=== PATIENT | female | born 1990 | race Caucasian/White ===

== ENCOUNTER 2018-06-19 22:23 | Emergency (ER) | payer MEDICAID, SELFPAY ==
[2018-06-19 22:25] VITALS: BP 153/90; PULSE 85; RESP 20; TEMP 36.6; O2SAT 99; BMI 27.4
[2018-06-19 22:36] VITALS: BP 137/100; PULSE 83; RESP 14; O2SAT 98
--- NOTE | 2018-06-19 22:49 | ED.VISSUMM ---
- ER Visit Summary Date of Service: 06/19/18 Chief Complaint: Vaginal bleeding History of Present Illness: The patient is a 28 F with vaginal bleeding that started today. She passed a large clot. This was painful. She was concerned it might be tissue. She was not positive that she was , but she has never passed tissue like this before. She does have a history of a tubal ligation. Patient denies fevers or any other symptoms. Physical Examination: Afebrile vital signs unremarkable. Heart regular. Lungs clear. Abdomen soft and nontender. Skin appears normal. Test Results: Urinalysis and test are pending. Emergency Department Course and Treatment: test was negative. Urinalysis is unremarkable. I suspect this is an abnormal clots or possibly a decidual cast. Patient is stable and will follow up with her OB as an outpatient. Treatment Plan: As above Disposition: Discharge Impression: 1. Vaginal bleeding This note was generated with [employer] dictation software. It may contain incorrect words, spelling, and punctuation that were not noted in review of the chart prior to signing ED Disposition - Plan for ED Patient: Chief Complaint: Vag Bld, Preg Referrals: Rober Saba DO [Primary Care Provider] -
[2018-06-19 23:24] LABS: Internal QC Validated? YES +Cl - CLEAR BKGD
[2018-06-19 23:25] LABS: Pregnancy, Urine Negative Negative
[2018-06-20 00:14] LABS: Bacteria 0 SEEN /hpf (None Seen); Mucous, Urine 0 SEEN /hpf (<or=2+); Red Blood Cells-Urine 0 SEEN /hpf (0-5); White Blood Cells 0 SEEN /hpf (0-5)
[2018-06-20 00:15] LABS: Color, Urine Yellow (Yellow); Glucose, Dipstick Normal (Normal); Ketone-Dipstick Negative (Negative); Leukocyte Esterase-Dipstick 25 /ul (Negative); Nitrite-Dipstick Negative (Negative); Occult Blood-Urine 250 /ul (Negative); Protein-Dipstick Negative (Negative); Urine Bilirubin Dipstick Negative (Negative); Urine Clarity Clear (Clear); Urine Urobilinogen Normal (Normal)
[2018-06-20 00:23] LABS: Squamous Epithelial Cells - UA 5-10 SEEN /hpf (5-10)
--- NOTE | 2018-06-20 00:30 | ED.DEP ---
ED Disposition - Plan for ED Patient: Chief Complaint: Vag Bld, Preg Instructions: ED Bleed Irregular Vaginal Referrals: Rober Saba DO [Primary Care Provider] -
[2018-06-20 00:48] VITALS: BP 127/88; PULSE 72; RESP 17; O2SAT 100
== END 2018-06-20 00:48 | disposition home or self-care (01) ==
LOC: ED 22:59
PROVIDERS: Emergency Provider Emergency Medicine; Family Provider Student in an Organized Health Care Education/Training Program; PCP Student in an Organized Health Care Education/Training Program
DX: N93.9 Abnormal uterine and vaginal bleeding, unspecified (principal); Z87.440 Personal history of urinary (tract) infections; Z72.0 Tobacco use
CPT/HCPCS: 81001; 81025; 99282

== ENCOUNTER 2019-02-10 14:05 | Emergency (ER) | payer MEDICAID, SELFPAY ==
[2019-02-10 14:06] VITALS: BP 118/73; PULSE 86; RESP 16; TEMP 40.1; O2SAT 98; BMI 28.0
--- NOTE | 2019-02-10 15:10 | ED.RN ---
POS FLU A CALLED FROM THE LAB. DR ELIVA AWARE
[2019-02-10 15:31] VITALS: PULSE 115; RESP 24; O2SAT 95
--- NOTE | 2019-02-10 15:45 | ED.VIS.GEN ---
History of Present Illness Chief Complaint: Fever Informant: Patient Onset: Yesterday Context: Gradual Onset Timing: Continuous Current Severity: Moderate Maximum Severity: Moderate Worsened by: coughing, vomiting Relieved by: n/a Associated Symptoms: myalgias, headache. Narrative: Patient states she has been coughing for about 3 weeks, but yesterday she started feeling awful, the cough became worse. No shortness of breath. Subjective fevers, chills, myalgias, malaise. No flu vaccine this year. Healthy otherwise, no asthma. No rash, no leg swelling. Past Medical History - Allergies and Home Meds Allergies/Adverse Reactions: Allergies azithromycin [From Zithromax] Allergy (Verified 06/19/18 22:28) Rash red dye Adverse Reaction (Verified 06/19/18 22:28) Vomiting Primary Care Physician: Rober Saba DO [Primary Care Provider] - Past Medical History: None Smoking Status: Current every day smoker Review of Systems General: Reports: Chills, Fever, Malaise Eyes: Reports: - - Eyes burning. Denies: Visual changes - bilaterally, Diplopia ENT: Denies: Rhinorrhea, Sore throat Cardiovascular: Denies: Chest pain, Palpitations Respiratory: Reports: Cough. Denies: Dyspnea, Sputum, Dyspnea on exertion Gastrointestinal: Reports: Nausea, Vomiting. Denies: Abdominal pain, Diarrhea, Melena, Hematochezia Genitourinary: Denies: Dysuria, Hematuria, Frequency Musculoskeletal: Reports: Myalgias. Denies: Back pain, Extremity Pain Skin: Denies: Rash, Wounds Neurological: Reports: Headache. Denies: Weakness, Numbness Physical Exam Vital Signs/Narrative: Vital Signs Temp Pulse Resp BP Pulse Ox 02/10/19 15:31 115 H 24 H 95 02/10/19 14:06 104.1 F H 86 16 118/73 98 Inital Vital Signs reviewed: Yes General: Well nourished, Well developed, No Acute Distress - Ill/malaised Head: Normocephalic, Atraumatic Eyes: Perrl, EOMI ENT: Moist mucous membranes, No rhinorrhea, Nasal congestion, - - Posterior oropharynx clear.. Negative for: Sinus tenderness Neck: Supple, Nontender, No lymphadenopathy Cardiovascular: Regular rate, Regular rhythm, No murmurs, Tachycardia Respiratory: No distress, CTA bilaterally, Chest nontender Abdomen: Soft, Nontender, Nondistended, Normal bowel sounds Extremities: Nontender, No edema Skin: Normal color, No rash, No Trauma Neurological: Alert, Oriented x3, Cranial nerves II-XII grossly intact, Normal Strength, Normal Sensation, Normal Gait Psychological: Normal affect, Normal Mood Diagnostic/Tx/Re-eval - Medical Decision Making Influenza swab is positive for flu A. She is reassured, she does not have any complications of the flu at this time, her lungs are clear. Her pulse ox is normal. She was given Motrin, Zofran, Tamiflu as well as prescriptions for the latter 2. Advised to stay at home and rest. ED Disposition - Plan for ED Patient: Disposition: Home or Assisted Living Diagnosis: Influenza A Instructions: ED Flu Prescriptions: Ondansetron [Zofran] 8 mg PO Q8H PRN PRN #12 tab PRN Reason: Vomiting Oseltamivir Phosphate [Tamiflu] 75 mg PO BID #10 cap Referrals: Rober Saba DO [Primary Care Provider] - As Needed
[2019-02-10] MEDS: Ondansetron ODT 4 MG Tablet 8 MG PO (15:51)
[2019-02-10] MEDS: Oseltamivir Phosphate 75 MG Capsule PO (15:51)
[2019-02-10] MEDS: Ibuprofen 600 MG Tablet PO (15:51)
[2019-02-10 15:56] VITALS: RESP 24
== END 2019-02-10 16:00 | disposition home or self-care (01) ==
LOC: ED 15:59
PROVIDERS: Emergency Provider Emergency Medicine; Family Provider Student in an Organized Health Care Education/Training Program; PCP Student in an Organized Health Care Education/Training Program
DX: J11.1 Influenza due to unidentified influenza virus with other respiratory manifestations (principal); F17.210 Nicotine dependence, cigarettes, uncomplicated
CPT/HCPCS: 87804; 87880; 99283

== ENCOUNTER 2020-02-10 18:27 | Emergency (ER) | payer MEDICAID, SELFPAY ==
[2020-02-10 18:28] VITALS: BP 142/73; PULSE 78; RESP 16; TEMP 36.7; O2SAT 98; BMI 28.5
[2020-02-10 18:50] VITALS: O2SAT 100
--- NOTE | 2020-02-10 19:10 | RAD_ITS ---
STUDY: X-RAY CHEST REASON FOR EXAM: Female, 29 years old. Sore throat TECHNIQUE: PA and lateral views of the chest COMPARISON: X-ray chest July 23, 2012 FINDINGS: There is very mild interstitial prominence in the right lower lung zone. There is no consolidation. There are no pleural effusions. There is no pneumothorax. The heart is normal in size. The visualized osseous structures are within normal limits. RAD/Chest PA and Lateral IMPRESSION: Very mild interstitial prominence in the right lower lung zone, possibly early interstitial infiltrate. No consolidation. Electronically Signed: Alvin Suero, at 19:26 EDT Tel , Service support ,
--- NOTE | 2020-02-10 19:15 | ED.VISSUMM ---
- ER Visit Summary Date of Service: 02/10/20 Chief Complaint: [Sinus pressure/cough/sore throat] History of Present Illness: The patient is a 29 F [presents the emergency department with symptoms that started 5 or 6 days ago. Patient was seen in urgent care and had no testing and was told to return if she worsened. Patient denies any fever. She denies any exposures to patients with no novel coronavirus infection. Patient denies recent travel. Patient works in a long-term. She denies any chest pain. Patient does state that her cough is productive with some green phlegm. Patient's had green phlegm from her nose.] Physical Examination: [HEENT-PERRLA, EOMI. Cranial nerves II through XII grossly intact. TMs clear. Mucous membranes moist. No adenopathy. Cardiovascular-regular rate and rhythm without murmur or ectopy Lungs-clear to auscultation, chest wall stable without crepitus or subcu emphysema Abdomen-normoactive bowel sounds, soft, nontender, no rebound or rigidity, no peritoneal signs. Extremities-intact ?4, normal range of motion, normal pulses, atraumatic] Test Results: [Chest x-ray obtained showed increased markings in the right lower lobe and could not rule out an early infiltrate. CT of the chest was obtained given concern for novel coronavirus which essentially did not show any lung abnormality other than she had multiple granulomas throughout both lungs the largest of which was 6 mm. Patient also had some calcified lymph nodes.] Emergency Department Course and Treatment: [Patient was started on doxycycline to cover for possible bacterial infection of her lungs and sinuses.] Treatment Plan: [Patient advised to self quarantine for 2 weeks. She will be treated with doxycycline. She understands I cannot rule out novel coronavirus. Patient advised to return if increasing shortness of breath or condition should worsen anyway.] Disposition: [Discharged home in stable condition] Impression: [Upper respiratory infection] This note was generated with [employer] dictation software. It may contain incorrect words, spelling, and punctuation that were not noted in review of the chart prior to signing ED Disposition - Plan for ED Patient: Referrals: Rober Saba DO [Primary Care Provider] -
--- NOTE | 2020-02-10 19:33 | CT_ITS ---
STUDY: CT CHEST WITHOUT CONTRAST REASON FOR EXAM: Female, 29 years old. COUGH AND SORE THROAT,ABN CXR RADIATION DOSAGE (If Supplied By Facility): CTDIvol = ( 12.13 ) mGy, DLP = ( 442.52 ) mGycm TECHNIQUE: Transaxial imaging was performed without the administration of intravenous contrast material. Individualized dose optimization techniques were used for this CT. COMPARISON: None. FINDINGS: There is a 3 mm nodule of the posterior left lower lobe, image 91 series 4. There is an additional 3 mm nodule of the left lower lobe image 78 series 4. There is a 6 mm nodule of the right lower lobe, image 67 series 4. There is a 4 mm right upper lobe nodule, image 48 series 4. There is a 2 mm right upper lobe nodule image 64 series 4. There is a 4 mm right upper lobe nodule image 48 series 4. There are calcified right lower lobe granulomas. Tthere is no demonstrated pleural abnormality. Normal heart and pericardium. There is a calcified mediastinal node. There are calcified right hilar nodes. Normal unenhanced pulmonary arteries. Normal aorta arch and descending thoracic aorta. There are mild degenerative changes of the visualized thoracolumbar spine. There is no demonstrated abnormality of the visualized upper abdomen. CT/Chest without Contrast IMPRESSION: Bilateral pulmonary nodules as detailed above. Calcified right lower lobe granulomas. Calcified mediastinal and right hilar nodes. Mild degenerative changes of the visualized thoracolumbar spine. Electronically Signed: Grabiel Chadwick MD at 20:13 EDT , Service support ,
[2020-02-10] MEDS: levoFLOXacin 750 MG Tablet PO (19:40)
--- NOTE | 2020-02-10 20:22 | ED.DEP ---
ED Disposition - Plan for ED Patient: Instructions: BRONCHITIS, Antiobiotic Treatment (Adult) Prescriptions: Doxycycline 100 mg PO BID #20 cap Prescription Printed Referrals: Rober Saba DO [Primary Care Provider] - 10-14 Days if not better
[2020-02-10 20:34] VITALS: BP 127/68; PULSE 86; RESP 17; O2SAT 96
== END 2020-02-10 20:34 | disposition home or self-care (01) ==
PROVIDERS: Emergency Provider Emergency Medicine; PCP Student in an Organized Health Care Education/Training Program
DX: J06.9 Acute upper respiratory infection, unspecified (principal); F17.220 Nicotine dependence, chewing tobacco, uncomplicated
CPT/HCPCS: 71046; 71250; 99283

== ENCOUNTER 2020-04-27 17:50 | Emergency (ER) | payer MEDICAID, SELFPAY ==
[2020-04-27 17:55] VITALS: BP 145/84; PULSE 89; RESP 17; TEMP 36.8; O2SAT 99; BMI 26.7
--- NOTE | 2020-04-27 17:58 | EKG12_ITS ---
Test Reason : PALPS Blood Pressure : / mmHG Vent. Rate : 070 BPM Atrial Rate : 070 BPM P-R Int : 134 ms QRS Dur : 092 ms QT Int : 408 ms P-R-T Axes : 049 052 023 degrees QTc Int : 440 ms Normal sinus rhythm with sinus arrhythmia Normal ECG Confirmed by VEE TOMLIN ([id number]), photograph editor JACQUELINE CHEN ([id number]) on 04/29/2020 7:22:40 AM Referred By: YUKI Confirmed By:VEE TOMLIN
--- NOTE | 2020-04-27 18:09 | RAD_ITS ---
STUDY: X-RAY CHEST REASON FOR EXAM: Female, 30 years old. Palpitations, irregular heart beat -- Normal HR, normal lung sounds TECHNIQUE: Single frontal view of the chest. COMPARISON: 02/10/2020 FINDINGS: The lungs are clear and expanded. There is no demonstrated pleural abnormality. Normal size heart. Normal mediastinum and kiki. Normal visualized pulmonary arteries. Normal visualized aortic arch and descending thoracic aorta. Normal visualized thoracic spine. Normal visualized ribs, clavicles, and shoulders. There is no demonstrated abnormality of the visualized soft tissue structures of the upper abdomen. RAD/Chest 1 View (Portable) IMPRESSION: Normal x-ray examination of the chest. Electronically Signed: Celio Alan MD at 18:40 EDT Tel , Service support ,
--- NOTE | 2020-04-27 18:20 | ED.DCSUM_ITS ---
- ER Visit Summary Date of Service: 04/27/20 Chief Complaint: Irregular heart rate History of Present Illness: The patient is a 30 F with an irregular rapid heart rate that started while she was at rest. She tried to drive to the ER after she called her PCP, but had to call EMS because she felt dizzy. She had a tingling in her left shoulder. She never had this before. Denies any history of heart disease or blood clots. She does believe her heart rate is dropping down into the 40s at night. No history of dysrhythmia, valvular disease, or any other complaints. Physical Examination: Afebrile and vital signs unremarkable. Patient in no acute distress. Alert and oriented. Heart regular. Lungs clear. Abdomen soft. Skin normal. Test Results: EKG showed sinus arrhythmia at a rate of 70. No sign of ischemia or infarction pattern. No red flag features. Laboratory studies and chest x- ray are pending. Emergency Department Course and Treatment: Patient was placed on a monitor. Work-up as above. Will reassess. Chest x-ray was normal. CBC, BMP, troponin, magnesium, thyroid normal. On reevaluation, the patient is doing well. No further symptoms. She was discussed with Dr. Nazario. Will arrange 24-hour Holter monitor and she will follow-up. Return for any problems. Treatment Plan: As above Disposition: Discharge Impression: Heart palpitations This note was generated with [employer] dictation software. It may contain incorrect words, spelling, and punctuation that were not noted in review of the chart prior to signing ED Disposition - Plan for ED Patient: Referrals: Rober Saba DO [Primary Care Provider] -
[2020-04-27 18:37] LABS: Absolute Neutrophil Count 5.6 X10^3/uL (2.0-7.7); Basophil# 0.09 X10^3/uL; Basophil% 0.9 % (0-1); Eosinophils% 3.2 % (0-5); Hematocrit 39.6 % (37-47); Hemoglobin 13.3 g/dL (12.0-15.0); Lymphocyte % 29.4 % (19-41); Mean Corp Hgb Conc 33.6 g/dL (32-36); Mean Corpuscular Volume 86.3 fL (81-99); Mean Platelet Vol. 10.3 fl (6.2-12.0); Monocyte# 0.68 X10^3/uL; Monocyte% 7.2 % (0-10); NRBC Flagged by Analyzer 0 % (0-5); Neutrophil # 5.61 X10^3/uL (2.7-7.7); Platelet Count 256 K/mm3 (150-450); RBC Distribution Width CV 13.8 % (11.6-14.6); RBC Distribution Width SD 42.8 fl (35.1-43.9); Red Blood Count 4.59 M/mm3 (4.2-5.4); White Blood Count 9.5 K/mm3 (4.4-11.0)
[2020-04-27 18:44] LABS: Anion Gap 7 (5-15); BUN 7 mg/dL (7-18); Calcium,Total 8.4 mg/dL (8.5-10.1); Chloride 111 mmol/L (98-107); Creatinine, Serum 0.78 mg/dL (0.55-1.02); EST Glomerular Filtration Rate 93 mL/min (>60); Est Glom Filt Rate - Afr Amer 112 mL/min (>60); Estimated Creatinine Clearance 111.22 ml/min; Glucose 88 mg/dL (74-106); Magnesium 2.2 mg/dL (1.6-2.6); Potassium 3.7 mmol/L (3.5-5.1); Sodium Level 142 mmol/L (136-145); Thyroid Stim Hormone (TSH) 1.01 uIU/mL (0.358-3.74)
--- NOTE | 2020-04-27 18:58 | ED.DEP ---
ED Disposition - Plan for ED Patient: Instructions: ED Palpitations Referrals: Brianna Nazario MD [STAFF PHYSICIAN] -
[2020-04-27 19:17] VITALS: BP 103/45; PULSE 73; RESP 17; O2SAT 98
== END 2020-04-27 19:32 | disposition home or self-care (01) ==
PROVIDERS: Emergency Provider Emergency Medicine; PCP Student in an Organized Health Care Education/Training Program
DX: R00.2 Palpitations (principal); F17.200 Nicotine dependence, unspecified, uncomplicated
CPT/HCPCS: 71045; 80048; 83735; 84443; 84484; 85025; 93005; 93225; 99285; J7030; A4216

== ENCOUNTER → 2020-04-27 18:58 | Outpatient (CLI) | payer MEDICAID, SELFPAY ==
[2020-04-27 17:55] VITALS: BMI 26.7
== END ==
PROVIDERS: PCP Student in an Organized Health Care Education/Training Program; Visit Provider Specialist
DX: I49.9 Cardiac arrhythmia, unspecified (principal); R00.2 Palpitations; F17.200 Nicotine dependence, unspecified, uncomplicated
CPT/HCPCS: 71045; 80048; 83735; 84443; 84484; 85025; 93005; 93225; 93226; J7030; A4216

== ENCOUNTER 2020-06-03 10:23 | Emergency (ER) | payer MEDICAID, SELFPAY ==
[2020-06-03 10:24] VITALS: BP 107/95; PULSE 76; RESP 18; TEMP 36.6; O2SAT 98; BMI 25.4
--- NOTE | 2020-06-03 10:38 | ED.DCSUM_ITS ---
History of Present Illness Chief Complaint: Allergic Reaction Narrative: Patient presenting for evaluation secondary to a allergic reaction to a tattoo. Patient reports that she got a tattoo on her right forearm back in December. She states that since then she has been dealing with basically continuous allergic response to the dye. Patient states that she has been doing steroid creams that have not really helped, she was on a course of prednisone which gave her minimal to no relief. Patient reports that she heard that potentially an injection of steroids give some people some relief, she was at urgent care recently they placed her on another course of steroid cream and that did not give her any relief. She denies any history of allergies. She denies any history of immunosuppression. She reports that the tattoo is itchy and not painful. Review of systems otherwise negative. Past Medical History - Allergies and Home Meds Allergies/Adverse Reactions: Allergies azithromycin [From Zithromax] Allergy (Verified 06/03/20 10:27) Rash red dye Adverse Reaction (Verified 06/03/20 10:27) Vomiting Primary Care Physician: Rober Saba DO [Primary Care Provider] - Prior records reviewed: Yes Past Medical History: None Smoking Status: Current every day smoker Alcohol: None Drugs: None Review of Systems General: Denies: Fever Respiratory: Denies: Dyspnea, Cough Gastrointestinal: Denies: Nausea Musculoskeletal: Denies: Myalgias Skin: Reports: Rash Hematologic: Denies: Easy bruising, Easy bleeding Allergy: Denies: Uticaria Physical Exam Vital Signs/Narrative: Vital Signs Temp Pulse Resp BP Pulse Ox 06/03/20 10:24 97.9 F 76 18 107/95 H 98 Inital Vital Signs reviewed: Yes General: Well nourished, Well developed Head: Normocephalic, Atraumatic Eyes: EOMI Cardiovascular: Regular rate, Regular rhythm, - - 2+ radial pulses Extremities: - - Right forearm exam shows the patient's tattoo to have raised areas wherever she has red dye that are palpable, no evidence of cellulitis, no lymphangitic streaking, no induration or fluctuance. Skin: Rash Neurological: Alert, Oriented x3 Diagnostic/Tx/Re-eval - Medical Decision Making Patient presented secondary to an allergic reaction due to a tattoo. Patient does not have any evidence of infection at this point. Patient stated that she had heard that injection steroids sometimes do give people relief for this, noble dirk will be given a Kenalog injection. She was instructed to continue doing steroid creams. She will be given a referral to dermatology. ED Disposition - Plan for ED Patient: Disposition: Home or Assisted Living Diagnosis: Allergic reaction Instructions: ED General Allergic Reactions Referrals: Angeli Carlisle MD [NON-STAFF] -
[2020-06-03] MEDS: Triamcinolone Acetonide 40 MG/ML Vial 80 MG IM (11:01)
[2020-06-03 11:02] VITALS: BP 122/68; PULSE 83; RESP 18; TEMP 36.8; O2SAT 98
[2020-06-03 11:03] VITALS: BP 132/78; PULSE 79; RESP 18; O2SAT 97
== END 2020-06-03 11:08 | disposition home or self-care (01) ==
PROVIDERS: Emergency Provider Emergency Medicine; PCP Student in an Organized Health Care Education/Training Program
DX: T78.40XA Allergy, unspecified, initial encounter (principal); F17.200 Nicotine dependence, unspecified, uncomplicated
CPT/HCPCS: 96372; 99282

== ENCOUNTER 2020-08-11 20:29 | Emergency (ER) | payer MEDICAID, SELFPAY ==
[2020-07-21 13:38] VITALS: BMI 24.9
[2020-08-11 20:30] VITALS: BP 132/88; PULSE 95; RESP 18; TEMP 36.8; O2SAT 98; BMI 24.3
--- NOTE | 2020-08-11 20:53 | EKG12_ITS ---
Test Reason : MHC Blood Pressure : / mmHG Vent. Rate : 062 BPM Atrial Rate : 062 BPM P-R Int : 138 ms QRS Dur : 094 ms QT Int : 432 ms P-R-T Axes : 051 048 026 degrees QTc Int : 438 ms Sinus rhythm with marked sinus arrhythmia Incomplete right bundle branch block Borderline ECG Confirmed by MARIXA TAVAREZ, JESUS ([id number]), offline editor JACQUELINE CHEN ([id number]) on 08/19/2020 12:48:01 P M Referred By: ANTIONE Confirmed By:MIAN CALVIN MD
--- NOTE | 2020-08-11 21:06 | ED.DCSUM_ITS ---
History of Present Illness Chief Complaint: Suicidal Narrative: This patient is a 30-year-old female who presents after an intentional acetaminophen overdose. She has a history of depression and anxiety. She is not on any medications currently. She states that she is under multiple stressors. She is working 2 jobs. Her son has been having some health issues. She reports that her is very controlling. She states that she just did not want to do this anymore. She took 8 g of Tylenol at about 3 or 3:30 PM today. She states that in the back of my mind I knew it wouldn't do anything. She woke up and got ready for work she was feeling okay. After getting to work she vomited and then developed sharp right upper quadrant pain. Past Medical History - Allergies and Home Meds Allergies/Adverse Reactions: Allergies azithromycin [From Zithromax] Allergy (Verified 08/11/20 20:41) Rash red dye Adverse Reaction (Verified 08/11/20 20:41) Vomiting Primary Care Physician: Rober Saba DO [Primary Care Provider] - Past Medical History: - - Depression anxiety Smoking Status: Current every day smoker Review of Systems All systems negative except as indicated General: Denies: Fever Eyes: Denies: Visual changes - bilaterally ENT: Denies: Bilateral ear pain Cardiovascular: Denies: Chest pain Respiratory: Denies: Dyspnea Gastrointestinal: Reports: Abdominal pain, Nausea, Vomiting. Denies: Diarrhea Musculoskeletal: Denies: Myalgias, Arthralgias Skin: Denies: Rash Neurological: Denies: Headache Psych: Reports: Depression, Anxiety, Suicidal thoughts Hematologic: Denies: Easy bruising Allergy: Denies: Uticaria Physical Exam Vital Signs/Narrative: Vital Signs Temp Pulse Resp BP Pulse Ox 08/11/20 20:30 98.2 F 95 18 132/88 H 98 Inital Vital Signs reviewed: Yes General: Well nourished Head: Normocephalic Eyes: EOMI ENT: Moist mucous membranes Neck: Supple Cardiovascular: Regular rate, Regular rhythm Respiratory: No distress, CTA bilaterally Abdomen: Soft, Nontender, Nondistended Extremities: Nontender Skin: Normal color Neurological: Alert Psychological: Tearful Diagnostic/Tx/Re-eval Laboratory Results 08/11/20 08/11/20 08/11/20 20:42 20:42 20:42 WBC 12.2 H RBC 4.86 Hgb 14.1 Hct 42.3 MCV 87.0 MCH 29.0 MCHC 33.3 RDW Std Deviation 41.8 RDW Coeff of Ludwin 13.3 Plt Count 286 MPV 10.1 Immature Gran % (Auto) 0.200 Neut % (Auto) 74.7 H Lymph % (Auto) 17.1 L Wilson % (Auto) 5.7 Eos % (Auto) 1.6 Baso % (Auto) 0.7 Absolute Neuts (auto) 9.1 H Absolute Lymphs (auto) 2.08 Nucleated RBC % 0 PT INR Sodium 141 Potassium 3.4 L Chloride 112 H Carbon Dioxide 23.0 Anion Gap 6 BUN 7 Creatinine 0.83 Estim Creat Clear Calc 104.52 Est GFR (MDRD) Af Amer 105 Est GFR (MDRD) Non-Af 87 BUN/Creatinine Ratio 8.5 L Glucose 113 H Calcium 9.0 Total Bilirubin 0.40 AST 16 ALT 21 Alkaline Phosphatase 52 Total Protein 7.7 Albumin 4.0 Globulin 3.7 Albumin/Globulin Ratio 1.1 Salicylates 2.6 L Acetaminophen 28.0 Ethyl Alcohol < 3.0 08/11/20 21:20 WBC RBC Hgb Hct MCV MCH MCHC RDW Std Deviation RDW Coeff of Ludwin Plt Count MPV Immature Gran % (Auto) Neut % (Auto) Lymph % (Auto) Wilson % (Auto) Eos % (Auto) Baso % (Auto) Absolute Neuts (auto) Absolute Lymphs (auto) Nucleated RBC % PT 13.1 INR 1.0 Sodium Potassium Chloride Carbon Dioxide Anion Gap BUN Creatinine Estim Creat Clear Calc Est GFR (MDRD) Af Amer Est GFR (MDRD) Non-Af BUN/Creatinine Ratio Glucose Calcium Total Bilirubin AST ALT Alkaline Phosphatase Total Protein Albumin Globulin Albumin/Globulin Ratio Salicylates Acetaminophen Ethyl Alcohol - Medical Decision Making Patient underwent medical clearance with the above laboratory studies. Acetaminophen level is 28. This is below the treatment line on the [facility] nomogram. At the time of this dictation her urine studies are still pending including urine drug screen and . If the studies are normal patient will be medically cleared. Patient will be evaluated crisis. Given intentional drug overdose with attempt at self-harm I do feel she would benefit from hospitalization for further management and treatment. Patient will be signed out to the oncoming physician to follow-up on urine studies and crisis evaluation. ED Disposition - Plan for ED Patient: Diagnosis: Suicidal ideation, Intentional drug overdose Referrals: Rober Saba DO [Primary Care Provider] -
[2020-08-11 21:09] LABS: Absolute Lymphocyte Count 2.08 X10^3/uL (0.83-4.51); Absolute Neutrophil Count 9.1 X10^3/uL (2.0-7.7); Basophil# 0.09 X10^3/uL; Basophil% 0.7 % (0-1); Eosinophil# 0.19 X10^3/uL; Eosinophils% 1.6 % (0-5); Hematocrit 42.3 % (37-47); Hemoglobin 14.1 g/dL (12.0-15.0); Lymphocyte # 2.08 X10^3/ul (4.0); Lymphocyte % 17.1 % (19-41); Mean Corp Hgb Conc 33.3 g/dL (32-36); Mean Platelet Vol. 10.1 fl (6.2-12.0); Monocyte# 0.69 X10^3/uL; Monocyte% 5.7 % (0-10); NRBC Flagged by Analyzer 0 % (0-5); Neutrophil # 9.08 X10^3/uL (2.7-7.7); Neutrophil % 74.7 % (47-70); Platelet Count 286 K/mm3 (150-450); RBC Distribution Width CV 13.3 % (11.6-14.6); RBC Distribution Width SD 41.8 fl (35.1-43.9); Red Blood Count 4.86 M/mm3 (4.2-5.4); White Blood Count 12.2 K/mm3 (4.4-11.0)
[2020-08-11 21:21] LABS: ALB/GLOB Ratio 1.1 RATIO (0.9-2.4); AST(SGOT) 16 U/L (15-37); Alanine Aminotransfer ALT/SGPT 21 U/L (13-56); Alkaline Phosphatase 52 U/L (45-117); Anion Gap 6 (5-15); BUN 7 mg/dL (7-18); BUN/Creat Ratio 8.5 RATIO (10-20); Chloride 112 mmol/L (98-107); Creatinine, Serum 0.83 mg/dL (0.55-1.02); EST Glomerular Filtration Rate 87 mL/min (>60); Est Glom Filt Rate - Afr Amer 105 mL/min (>60); Estimated Creatinine Clearance 104.52 ml/min; Globulin 3.7 g/dL (2.2-4.2); Glucose 113 mg/dL (74-106); Potassium 3.4 mmol/L (3.5-5.1); Protein, Total 7.7 g/dL (6.4-8.2); Sodium Level 141 mmol/L (136-145)
[2020-08-11 21:29] VITALS: BP 127/94; PULSE 60; RESP 18; O2SAT 98
[2020-08-11 21:41] LABS: Prothrombin Time (Protime)PT. 13.1 SECONDS (11.7-14.9)
--- NOTE | 2020-08-11 21:49 | ED.RN ---
aunt would like update if anything critical occurs. víctor bateman- [phone]. per pt okay to contact ONLY if need be.
[2020-08-11] MEDS: Ondansetron 4 MG/2 ML Vial IV (21:50)
[2020-08-11] MEDS: 0.9% Normal Saline 1,000 ML 999 ML IV (21:50)
[2020-08-11 21:52] LABS: Alcohol, Blood (Medical)-Serum < 3.0 mg/dL; Salicylate 2.6 mg/dL (2.8-20.0)
[2020-08-11 22:30] VITALS: BP 127/98; PULSE 90; RESP 18; O2SAT 98
[2020-08-11 22:56] LABS: Internal QC Validated? YES +Cl - CLEAR BKGD; Pregnancy, Urine Negative Negative
[2020-08-11 23:11] LABS: Amphetamine Urine VISTA NEGATIVE (<1000 ng/mL); Barbiturate Urine VISTA NEGATIVE (< 200 ng/mL); Benzodiazepine Urine VISTA NEGATIVE (< 200 ng/mL); Cocaine Urine VISTA NEGATIVE (< 300 ng/mL); Ecstacy Urine VISTA NEGATIVE (< 500 ng/mL); Methadone Urine VISTA NEGATIVE (< 300 ng/mL); PCP Urine VISTA NEGATIVE (< 25 ng/mL); THC Urine VISTA POSITIVE (< 50 ng/mL); Vista UDS pH Range 6
[2020-08-12] VITALS (10 sets, daily range): BP systolic 99–131; BP diastolic 56–87; PULSE 42–64; RESP 14–18; TEMP 36.6–36.7; O2SAT 96–99
--- NOTE | 2020-08-12 06:22 | ED.RN ---
[facility] PAGED FOR PT CARE UPDATE
[2020-08-12] MEDS: Ondansetron 4 MG/2 ML Vial IV (09:10)
[2020-08-12 09:57] LABS: Acetaminophen (Tylenol) Level < 2.0 ug/mL (10.0-30.0)
== END 2020-08-12 10:56 ==
LOC: ED 21:19
PROVIDERS: Emergency Medicine; Emergency Provider Emergency Medicine; PCP Student in an Organized Health Care Education/Training Program
DX: R45.851 Suicidal ideations (principal); T39.1X2A Poisoning by 4-Aminophenol derivatives, intentional self-harm, initial encounter; F17.200 Nicotine dependence, unspecified, uncomplicated
CPT/HCPCS: 36415; 80053; 80307; 80320; 80329; 81025; 85025; 85610; 93005; 96361; 96374; 96376; 99285; J7030; A4216; G0480; J2405

== ENCOUNTER 2020-10-19 14:30 | Outpatient (RCR) | payer MEDICAID, SELFPAY ==
[2020-09-27 14:08] VITALS: BMI 24.9
--- NOTE | 2020-09-29 11:47 | HP.PTEVAL_ITS ---
Patient's Visit Information ALPHONSO JARRETT is a 30 year old F referred to Physical Therapy by Dr. 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 Date of Evaluation: 09/29/20 Physical Therapist: LAURI Huff - Visit Plan Frequency: 2x /Week Duration: 6 Weeks Plan: 2X/ week for 5 weeks for AT for core stability, hip strength, Trunk ROM, LE stretching with HEP - Subjective Pt is having a lot of hip problems.... x-ray shows that the ball of her hip is not round anymore. The L side is worse and but the pain is worse on the R. Home is tough and work is tough... 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 The meloxicam takes the edge off. Dr said he wants to try PT... if PT makes it worse than she has to call the Dr and he will work on an MRI. Her pain is on the lateral hip and radiates into the groin on the L and on the R it is on the lateral side and radiates to her R buttocks. She has no N&T. It is more of a muscle cramp or sharp stabbing pain. She has not tried PT before for her hips. Her best time for PT is mornings. If she sits for 1/2 hour it is difficult for her to get up. She can walk for about 15-20 minutes and then it starts to bother her. She does not notice any weakness in her hips. Stairs: legs almost become fatigued. No giving out. She has always had LB issues. Most nights she tosses and turns alot. She can lay on either side of her hips but sleeps with a pillow under them... could be a mattress issue. - Pain R pain Pain Intensity (Out of 10): 7 Pain Intensity Range: 10 L hip pain Pain Intensity (Out of 10): 6 Pain Intensity Range: 10 - Objective Gait: walks with WBOS and decrease B stride length. She has slightly more petrona ght distribution on the R LE. LE MMT: B hip flex 4-/5, R hip abd 4/5 and L hip abd 4-/5, B knee flex 4-/5, B knee ext 4/5. Pt had a hard time walking on her toes as it increased her L hip pain. Trunk AROM: flexion 75%, Ext 25% with increase extension on the L, SB B 75%, Rot B 75% with increase pain with roation to the L. + SLR B for increase hip pain. Good hip flexion and HS length. Pt had increase back pain with a plank today and increase lumbar lordosis - Goals Goal 1:: I HEP Goal Time Frame: 4-6 Weeks Goal 2:: Decrease B hip pain down to 2/10 with ADL's and work Goal Time Frame: 4-6 Weeks Goal 3:: Increase trunk AROM to 75% all planes with no pain. Goal Time Frame: 4-6 Weeks Goal 4:: Increase LE MMT by 1/2 muscle grade (at the time of eval: LE MMT: B hip flex 4-/5, R hip abd 4/5 and L hip abd 4-/5, B knee flex 4-/5, B knee ext 4/5. Pt had a hard time walking on her toes as it increased her L hip pain). Goal Time Frame: 4-6 Weeks Goal 5:: Walk with more normal gait pattern with feet together and equal stance time with normal stride length Goal Time Frame: 4-6 Weeks - Rehabilitation Potential Rehabilitation Potential: Good - Anticipated Interventions Patient/Client Instruction: Educate patient on: Condition, Plan of Care For the Purpose of:: To decrease pain, To increase ROM, To improve nutrient delivery to tissue, To improve muscle performance and motor function, To improve ability to perform ADL's, To increase tolerance to activity/condition/position, To improve performance and independence with ADL's, To improve gait and locomotor functions, To improve health of tissue, To increase flexibility/ROM, To reduce risk of recurrence Therapeutic Exercise to Include: Strength training, Flexibilty training, Gait and locomotor training, Active ROM, Dynamic Lumbar Stabilization For the Purpose of:: To decrease pain, To improve nutrient delivery to tissue, To improve muscle performance and motor function, To improve ability to perform ADL's, To increase tolerance to activity/condition/position, To improve performance and independence with ADL's, To improve ability of physical actions for home/community/work/leisure, To improve gait and locomotor functions, To improve health of tissue, To increase flexibility/ROM Functional Training to Include: Gait training For the Purpose of:: To improve gait and locomotor functions, To improve safety with gait Thank you for the opportunity to evaluate your patient. For Medicare and Medicare HMO plans, please review the plan of care and approve it. It will need to be FAXED BACK to us at [phone] for Medicare purposes. For Medicare only, by signing this I certify the plan of care. Please let me know if there are questions or concerns regarding this plan of care. Physician Signature: Date:
--- NOTE | 2020-12-28 10:42 | HP.PT.NRP ---
ALPHONSO JARRETT was seen in my office for initial evaluation on 09/29/20. The following Plan of Care was established for this patient: Initial Frequency: 2x /Week Initial Duration: 6 Weeks Patient/Client Instruction: Educate patient on: Condition, Plan of Care For the Purpose of:: To decrease pain, To increase ROM, To improve nutrient delivery to tissue, To improve muscle performance and motor function, To improve ability to perform ADL's, To increase tolerance to activity/condition/position, To improve performance and independence with ADL's, To improve gait and locomotor functions, To improve health of tissue, To increase flexibility/ROM, To reduce risk of recurrence Therapeutic Exercise to Include: Strength training, Flexibilty training, Gait and locomotor training, Active ROM, Dynamic Lumbar Stabilization For the Purpose of:: To decrease pain, To improve nutrient delivery to tissue, To improve muscle performance and motor function, To improve ability to perform ADL's, To increase tolerance to activity/condition/position, To improve performance and independence with ADL's, To improve ability of physical actions for home/community/work/leisure, To improve gait and locomotor functions, To improve health of tissue, To increase flexibility/ROM Functional Training to Include: Gait training For the Purpose of:: To improve gait and locomotor functions, To improve safety with gait This patient was last seen in our office 10/19/20. Pertinent comments regarding their Physical therapy will appear below: [facility] PT as pt did not show up for her last few appointments. At this point I will be discontinuing this patient from physical therapy. I would be happy to see this patient again in the future if found appropriate by the physician. Thank you! Sisi Joe, MPT
== END 2020-10-19 19:00 | disposition home or self-care (01) ==
LOC: PT 14:30
PROVIDERS: PCP Student in an Organized Health Care Education/Training Program; Referring Provider Specialist; Visit Provider Specialist
DX: M24.851 Other specific joint derangements of right hip, not elsewhere classified (principal); M24.852 Other specific joint derangements of left hip, not elsewhere classified
CPT/HCPCS: 97113; 97161

== ENCOUNTER → 2020-11-15 10:06 | Outpatient (CLI) | payer MEDICAID, SELFPAY ==
[2020-09-27 14:08] VITALS: BMI 24.9
--- NOTE | 2020-11-15 10:10 | RAD_ITS ---
PROCEDURE: ARTHROGRAM -- RIGHT HIP REASON FOR EXAM: Female, 30 years old. Right hip pain FLUOROSCOPY TIME: 6 seconds estimated dose 6 mGy. STERILE BARRIER TECHNIQUE: The following sterile barrier precautions were used during the procedure: hand hygiene; use of 2% chlorhexidine aseptic; use of a cap, mask, sterile gown, sterile gloves, sterile full body drape, and a large sterile sheet. PROCEDURE/TECHNIQUE: The risks, benefits, and alternatives to the procedure were explained to patient, and the patient agreed to the procedure and signed a consent form for the procedure. A timeout was performed to confirm the patient''s identity, the type of procedure, to be performed and the site of entry. Injection Information: Mixture containing 1cc betamethasone and 3cc of 1 percent. Mixture containing 0.2 mL of Omniscan, 10 mL of Omnipaque 300 and 10 mL of normal saline. Number of images obtained: 5 TECHNIQUE: Under fluoroscopic guidance using sterile technique and after infiltration of the skin and subcutaneous soft tissues with 10 mL of lidocaine 1% a 22-gauge needle is introduced in the right hip joint. 10 ml of the above mentioned mixture were injected in the shoulder joint. FINDINGS: The joint capsule is normal in size. There is no evidence of intra-articular loose bodies. RAD/Arthrogram Hip IMPRESSION: There is no evidence of intra-articular loose bodies. Electronically Signed: Dora Dickinson, at 10:42 EST Tel , Service support ,
--- NOTE | 2020-11-15 11:33 | MRI_ITS ---
STUDY: MRI RIGHT HIP ARTHROGRAM REASON FOR EXAM: Female, 30 years old. MR RT HIP ARTHROGRAM JOINT DERANGEMENT -- NKI, stabbing pain rt hip x 6 months TECHNIQUE: Standardized arthrographic pulse sequences were obtained in all 3 orthogonal planes. Please see dedicated arthrogram technique. 10 mL gadolinium/saline solution injected. COMPARISON: None. FINDINGS: Adequate capsular distention secondary to intra-articular gadolinium administration. Small superior posterior lateral labral tear (coronal images 7 through 9 series 3). Capsular ligaments intact. No bursitis. Normal hip joint without articular joint space narrowing. Normal acetabulum. Normal femoral head. Normal femoral neck and intratrochanteric region. Normal gluteus minimus, medius and iliopsoas tendons and distal insertions. Normal superior and inferior pubic rami. Normal pubic symphysis. Normal ischial tuberosity. Normal origin of the hamstring tendons. Normal visualized iliac wing, sacroiliac joint, and sacral ala. Normal visualized soft tissue structures of the pelvis. MRI/Lower Ext/Jt Only/W Contrast IMPRESSION: Small superior posterior lateral labral tear Electronically Signed: Rohit Ruby DO at 8:59 EST Tel , Service support ,
== END ==
PROVIDERS: PCP Student in an Organized Health Care Education/Training Program; Referring Provider Specialist; Visit Provider Specialist
DX: M24.851 Other specific joint derangements of right hip, not elsewhere classified (principal); N28.9 Disorder of kidney and ureter, unspecified
CPT/HCPCS: 27093; 73525; 73722; Q9967; A9575

== ENCOUNTER 2021-04-16 13:36 | Inpatient (IN) | payer OTHER, MEDICAID, SELFPAY ==
[2021-04-16 13:38] VITALS: BMI 24.9
[2021-04-16 13:39] VITALS: BP 136/88; PULSE 85; RESP 18; TEMP 36.8; O2SAT 100; BMI 28.3
--- NOTE | 2021-04-16 13:53 | EDS_ITS ---
HPI History of Present Illness Chief Complaint: Suicidal Detail of Chief Complaint: Alcohol abuse with request for detox, depression, suicidal ideation Informant: patient Narrative Narrative: Patient presents to the emergency department with request for detox from alcohol. Patient states that she has been drinking daily for the last week and has had a problem struggling with alcoholism since the age of 18. Patient also is a manic depressant. Patient over the last weeks been having thoughts of suicidal ideation but does not have an active plan. Patient states that last year she actually took a drug overdose and was transferred to [facility]. Patient does not feel that she is to the point where she would actually act on her thoughts. She feels like she needs help with her drinking. Patient states that she is the only one in the family that works and that she they are having financial issues. She is being told that she is not doing enough and that her kids do not want to be around her. Patient states that she had Covid in October 2020. Patient states that she drinks mostly beer and has been drink anywhere from 4-5 beers a day. Prior similar symptoms: Yes PFSH PFS Medical History (Updated 04/16/21 @ 14:[address] Gem Maldonado, DO) ASCUS with positive high risk HPV Genital herpes History of meningitis History of multiple pulmonary nodules Palpitations Varicosities of leg Home Medications aripiprazole 5 mg tablet 5 mg PO QHS 09/27/20 [History Last Taken Unknown] trazodone 50 mg tablet 50 mg PO QHS 09/27/20 [History Last Taken Unknown] meloxicam 15 mg tablet 15 tablet PO DAILY 02/15/21 [History Last Taken Unknown] Allergy/AdvReac Type Severity Reaction Status Date / Time azithromycin [From Zithromax] Allergy Rash Verified 04/16/21 13:38 red dye AdvReac Vomiting Verified 04/16/21 13:38 Family History Other Arthritis Bipolar disorder Cancer Heart disease Myocardial infarction Surgical History History of arthroscopic knee surgery History of tubal ligation History of varicose vein stripping Social History (Updated 02/15/21 @ 14:[address] Stephanie Nieves, DO) Smoking Status: Current every day smoker tobacco type: cigarettes and cigars quit status: has quit before alcohol intake: current alcohol intake frequency: a few times a month substance use type: marijuana caffeine: Yes Type: carbonated beverages Number of servings: 2, coffee and tea what type of physical activity do you participate in: none ROS ROS ED Constitutional Constitutional ED: Reports systems reviewed and no addt'l complaints, except as documented; Denies body ache(s), change in weight or chills Eyes Eyes: Denies acute decrease in peripheral vision, change in vision, double vision or loss of vision ENT ENT ED: Reports none; Denies ear pain, lip swelling, loss taste/smell, neck pain, otalgia or sore throat Cardiovascular Cardiovascular: Reports none; Denies abdominal pain, chest pain with activity, leg edema, lightheadedness, palpitations, rapid heart rate or syncope Respiratory/Chest Respiratory/Chest: Reports none; Denies change in mental status, dry cough, dyspnea, hemoptysis, shortness of breath at rest or shortness of breath with exertion Gastrointestinal Gastrointestinal: Reports none; Denies abdominal pain, change in stool c haracter, diarrhea, hematemesis, hematochezia, melena, rectal bleeding or vomiting Genitourinary Genitourinary ED: Reports none; Denies abdominal discomfort, anuria, dysuria, genital pain or polyuria Musculoskeletal Musculoskeletal: Reports none; Denies arthralgias, back pain, difficulty walking, extremity pain, muscle weakness or myalgias Integumentary Reports none; Denies abscess or rash Neurologic Neurologic: Reports none; Denies abnormal gait, confusion, focal weakness, frequent falls, headache(s), loss of vision, numbness, paresthesias, radicular pain, vertigo or weakness Psychiatric Psychiatric: Reports systems reviewed and no addt'l complaints, except as documented, none, depression and suicidal thoughts; Denies behavioral changes, confusion, difficulty concentrating, hallucinations, homicidal ideation, suicidal ideation, tactile hallucinations or visual hallucinations Endocrine Endocrinology: Denies none, cold intolerance, excessive sweating, fatigue or heat intolerance Hematologic/Lymphatic Hematologic/Lymphatic: Reports none; Denies anemia, easy bleeding or easy bruising Allergic/Immunologic Allergic/Immunologic ED: Denies as per HPI, none, lip swelling, mouth swelling, throat swelling, tongue swelling or hives EXAM Physical Exam Const Vital Signs: 04/16/21 13:39 Temperature 98.2 F Temperature Source Temporal Pulse Rate 85 Respiratory Rate 18 Blood Pressure 136/88 H Blood Pressure Mean 104 Pulse Ox 100 Oxygen Delivery Method Room Air Positive well nourished and well developed General Appearance ED: well developed and NAD HEENT Reports TM's clear and moist mucous membranes normocephalic and atraumatic; Negative for trauma or tenderness Tympanic Membrane ED: Yes TM's clear Eyes PERRL and EOMs intact bilaterally General Eye ED: Negative for pale conjunctiva or scleral icterus Neck no lymphadenopathy, supple and no JVD General: Negative for tenderness Chest Wall inspection of chest normal and palpation of chest normal Chest: Negative for tenderness Resp normal respiratory effort and clear to auscultation bilaterally Effort and Inspection: Negative for respiratory distress or pain with movement Auscultation: Negative for rhonchi, wheezes or diminished lung sounds Cardio regular rate, regular rhythm, S1 normal heart sound, S2 normal heart sound and no murmurs Peripheral Pulses: pulses 2+ throughout GI normal to inspection, nondistended, normoactive bowel sounds, soft to palpation, non-tender, non-distended and no masses Back/Spine no CVA tenderness and no thoracic nor lumbar tenderness Extremity normal to inspection General Extremety ED: Negative for edema General Extremity: Negative for edema Neuro oriented x3, CN's II-XII intact bilaterally, no sensory deficits noted and gait normal Sensorium / Orientation: awake, alert, oriented to person, oriented to place and oriented to time Motor Exam: strength 5/5 throughout and strength abnormal Psych mental status grossly normal Skin no rashes or lesions noted and no wounds MDM MDM MDM Narrative Medical decision making narrative: Patient was evaluated by social service agency director and she can contract for safety at this time. She states that she is not acutely suicidal and has no intent on following through with any plans to harm her self. Patient believes that she needs help with alcohol as she feels this is a main contributor to the way that she is feeling. Case will be discussed with hospitalist to evaluate patient for admission. Lab Data Attestation: I reviewed the patient's lab results. Labs: Laboratory Results - last 24 hr 04/16/21 04/16/21 04/16/21 14:00 14:00 14:00 WBC 11.8 H RBC 4.78 Hgb 14.0 Hct 41.2 MCV 86.2 MCH 29.3 MCHC 34.0 RDW Std Deviation 41.3 RDW Coeff of Ludwin 13.2 Plt Count 272 MPV 9.8 Immature Gran % (Auto) 0.300 Neut % (Auto) 66.3 Lymph % (Auto) 25.4 Lyman % (Auto) 4.9 Eos % (Auto) 2.3 Baso % (Auto) 0.8 Absolute Neuts (auto) 7.9 H Absolute Lymphs (auto) 3.01 Nucleated RBC % 0 Sodium 137 Potassium 3.8 Chloride 106 Carbon Dioxide 25.0 Anion Gap 6 BUN 9 Creatinine 0.88 Estim Creat Clear Calc 90.90 Est GFR (MDRD) Af Amer 97 Est GFR (MDRD) Non-Af 80 BUN/Creatinine Ratio 10.2 Glucose 112 H Calcium 8.8 Serum , Qual Urine Opiates Screen Urine Methadone Screen Ur Barbiturates Screen Ur Phencyclidine Scrn Ur Amphetamines Screen U Methamphetamin-MDMA U Benzodiazepines Scrn Urine Cocaine Screen U Cannabinoids Screen Ur Drug Screen Comment Ethyl Alcohol < 3.0 04/16/21 04/16/21 14:00 14:02 WBC RBC Hgb Hct MCV MCH MCHC RDW Std Deviation RDW Coeff of Ludwin Plt Count MPV Immature Gran % (Auto) Neut % (Auto) Lymph % (Auto) Lyman % (Auto) Eos % (Auto) Baso % (Auto) Absolute Neuts (auto) Absolute Lymphs (auto) Nucleated RBC % Sodium Potassium Chloride Carbon Dioxide Anion Gap BUN Creatinine Estim Creat Clear Calc Est GFR (MDRD) Af Amer Est GFR (MDRD) Non-Af BUN/Creatinine Ratio Glucose Calcium Serum , Qual NEGATIVE Urine Opiates Screen NEGATIVE Urine Methadone Screen NEGATIVE Ur Barbiturates Screen NEGATIVE Ur Phencyclidine Scrn NEGATIVE Ur Amphetamines Screen NEGATIVE U Methamphetamin-MDMA NEGATIVE U Benzodiazepines Scrn NEGATIVE Urine Cocaine Screen NEGATIVE U Cannabinoids Screen POSITIVE H Ur Drug Screen Comment Ethyl Alcohol Discharge Plan Dx/Rx/DC Orders Clinical Impression: Withdrawn from alcohol detoxification program, Depression Disposition Disposition: Acute Care Hospital [facility]
[2021-04-16 14:05] LABS: Absolute Lymphocyte Count 3.01 X10^3/uL (0.83-4.51); Absolute Neutrophil Count 7.9 X10^3/uL (2.0-7.7); Basophil# 0.09 X10^3/uL; Basophil% 0.8 % (0-1); Eosinophil# 0.27 X10^3/uL; Eosinophils% 2.3 % (0-5); Hematocrit 41.2 % (37-47); Lymphocyte # 3.01 X10^3/ul (0.83-4.51); Lymphocyte % 25.4 % (19-41); Mean Corpuscular Hgb 29.3 pg (27.0-32.0); Mean Corpuscular Volume 86.2 fL (81-99); Mean Platelet Vol. 9.8 fl (6.2-12.0); Monocyte# 0.58 X10^3/uL; Monocyte% 4.9 % (0-10); NRBC Flagged by Analyzer 0 % (0-5); Neutrophil # 7.85 X10^3/uL (2.7-7.7); Neutrophil % 66.3 % (47-70); Platelet Count 272 K/mm3 (150-450); RBC Distribution Width CV 13.2 % (11.6-14.6); RBC Distribution Width SD 41.3 fl (35.1-43.9); Red Blood Count 4.78 M/mm3 (4.2-5.4); White Blood Count 11.8 K/mm3 (4.4-11.0)
[2021-04-16 14:11] LABS: Internal QC Validated? YES +Cl - CLEAR BKGD; Pregnancy, Serum, hCG Quali. NEGATIVE Negative
[2021-04-16 14:16] LABS: Alcohol, Blood (Medical)-Serum < 3.0 mg/dL
[2021-04-16 14:17] LABS: Anion Gap 6 (5-15); BUN 9 mg/dL (7-18); BUN/Creat Ratio 10.2 RATIO (10-20); Calcium,Total 8.8 mg/dL (8.5-10.1); Chloride 106 mmol/L (98-107); Creatinine, Serum 0.88 mg/dL (0.55-1.02); EST Glomerular Filtration Rate 80 mL/min (>60); Est Glom Filt Rate - Afr Amer 97 mL/min (>60); Glucose 112 mg/dL (74-106); Potassium 3.8 mmol/L (3.5-5.1); Sodium Level 137 mmol/L (136-145)
[2021-04-16 14:23] LABS: Amphetamine Urine VISTA NEGATIVE (<1000 ng/mL); Barbiturate Urine VISTA NEGATIVE (< 200 ng/mL); Benzodiazepine Urine VISTA NEGATIVE (< 200 ng/mL); Cocaine Urine VISTA NEGATIVE (< 300 ng/mL); Ecstacy Urine VISTA NEGATIVE (< 500 ng/mL); Methadone Urine VISTA NEGATIVE (< 300 ng/mL); PCP Urine VISTA NEGATIVE (< 25 ng/mL); THC Urine VISTA POSITIVE (< 50 ng/mL); Vista UDS pH Range 5
--- NOTE | 2021-04-16 14:53 | PCM.HP.STD ---
HPI - General General Date of Service: 04/16/21 Chief Complaint: EtOH Abuse, withdrawal treatment HPI Narrative The patient is a 31 y/o F w/ PMHx: EtOH abuse (4-6, 12 ounce beers daily), Tobacco use, Known Lung Nodules (last f/u 1 year prior), Anxiety and Depression/Bipolar disorder who presents to the [facility] ED on 04/16/21 with history of ongoing consistent heavier EtOH intake since the age of 18, specifically 4-6, 12 ounces beers, Budlite more recently, interested in sobriety as she has 3 children ranging in age 7-10 and a spouse now sober x 3 months with history of heavy whiskey intake with onset of acute EtOH withdrawal with last drink the evening prior with onset now fatigue, malaise, mild tremor prompting ED evaluation. Patient does admit to worsened depression and feels like her abilify has not been as effective which she notes likely contributes to her EtOH intake with more recently suicidal thoughts but no active plan. Social work evaluated the patient in the ED with safety plan in place with planned aggressive outpatient therapy with discontinuation of suicidal precautions and clearance for evaluation for the withdrawal treatment program. Work-up in the ED included VS w/ T 98.2, heart rate 85, BP 136/88, respiratory rate 18, 100% on room air, CBC with WC 11.8, hemoglobin 14, platelet 272 with mild left shift, BMP with glucose 112, serum negative, UDS with cannabis, ethyl alcohol level less than 3. [facility] Medical History (Updated 04/16/21 @ 16:[address] Tracy Roman MD) Anxiety and depression ASCUS with positive high risk HPV Genital herpes History of meningitis History of multiple pulmonary nodules Palpitations Tobacco use Varicosities of leg Home Medications aripiprazole 5 mg tablet 5 mg PO QHS 09/27/20 [History Last Taken Unknown] trazodone 50 mg tablet 50 mg PO QHS 09/27/20 [History Last Taken Unknown] meloxicam 15 mg tablet 15 tablet PO DAILY 02/15/21 [History Last Taken Unknown] Allergy/AdvReac Type Severity Reaction Status Date / Time azithromycin [From Zithromax] Allergy Rash Verified 04/16/21 13:38 red dye AdvReac Vomiting Verified 04/16/21 13:38 Family History (Updated 04/16/21 @ 16:[address] Tracy Roman MD) Mother Anxiety and depression Bipolar disorder Polysubstance abuse Other Arthritis Cancer Heart disease Myocardial infarction other (Patient does not know her father nor any of her paternal family history.) Surgical History History of arthroscopic knee surgery History of tubal ligation History of varicose vein stripping Social History (Updated 04/16/21 @ 16:[address] Tracy Roman MD) household members: spouse and family Smoking Status: Current every day smoker tobacco type: cigarettes Smoking packs per day: 0.5 Smoking cigarettes per day: 10.0 Years smoked: 2.5 Smoking pack-years: 1.25 and cigars quit status: has quit before alcohol intake: current alcohol intake frequency: 3 or more drinks per day Alcohol type: beer details: 4-6, 12 ounce beers daily since age 18. substance use type: marijuana caffeine: Yes Type: carbonated beverages Number of servings: 2, coffee and tea what type of physical activity do you participate in: none ROS ROS Narrative Admission Review of Systems: CONSTITUTIONAL: No weight loss, fever, chills, + weakness or fatigue. HEENT: Eyes: No visual loss, blurred vision, double vision or yellow sclerae. Ears, Nose, Throat: No hearing loss, sneezing, congestion, runny nose or sore throat. SKIN: No rash or itching, lesions, wounds. CARDIOVASCULAR: No chest pain, chest pressure or chest discomfort, palpitations, edema, orthopnea, syncopal events. RESPIRATORY: No shortness of breath, cough or sputum, wheezing, hemoptysis. GASTROINTESTINAL: No anorexia, nausea, vomiting or diarrhea, abdominal pain, melena, BRBPR. GENITOURINARY: No dysuria, frequency, urgency or retention. NEUROLOGICAL: + Mild tremor. No headache, dizziness, syncope, paralysis, ataxia, numbness or tingling in the extremities, focal weakness, change in bowel or bladder control, seizure. MUSCULOSKELETAL: + muscle, back pain, joint pain or stiffness. HEMATOLOGIC: No anemia, bleeding or bruising. LYMPHATICS: No enlarged nodes. No history of splenectomy. PSYCHIATRIC: + history of depression or anxiety. ENDOCRINOLOGIC: No reports of sweating, cold or heat intolerance. No polyuria or polydipsia. ALLERGIES: No history of asthma, hives, eczema or rhinitis. Vital Signs Vital Signs Vital Signs: 04/16/21 13:39 Temperature 98.2 F Temperature Source Temporal Pulse Rate 85 Respiratory Rate 18 Blood Pressure 136/88 H Blood Pressure Mean 104 Pulse Ox 100 Oxygen Delivery Method Room Air Weight Weight: 181 lb Body Mass Index (BMI) 28.3 Physical Exam Narrative Physical Examination: General: awake, alert, oriented x 3 and cooperative, seated upright in the ED bed, fatigued, mildly anxious, mild tremors. Skin: normal color, turgor, no icterus, cyanosis. HEENT: AT/NC, EOMI, PERRLA, moderately dry MM, no carotid bruits or JVD noted. Lungs: CTA bilaterally, moderate effort, mild decrease BL bases, no rales, ronchi or wheezing. Heart: Regular rate and rhythm; no gallop, rub audible. Abdomen: soft, NTTP, ND, normal BS, no HSM. Extremities: no cyanosis, clubbing, or edema. Neurological: patient awake, alert, oriented as noted, cognitive function appears baseline intact; pupils equally reactive to light and accommodation, cranial nerves II-XII grossly normal, moving all 4 extremities, no focal deficits, mild tremors evidence, strength mildly to moderately globally decreased secondary to acute presentation, fatigue. Psychiatric: affect appears fatigued, mildly anxious and intermittently flat, noted depression and anxiety diagnosis, does admit to recent suicidal thoughts but denies plan, was contracted for safety in the ED and precautions d/c. Lab / Micro Data Result Diagrams: 04/16/21 14:00 04/16/21 14:00 Labs: Laboratory Results - last 24 hr 04/16/21 04/16/21 04/16/21 14:00 14:00 14:00 WBC 11.8 H RBC 4.78 Hgb 14.0 Hct 41.2 MCV 86.2 MCH 29.3 MCHC 34.0 RDW Std Deviation 41.3 RDW Coeff of Ludwin 13.2 Plt Count 272 MPV 9.8 Immature Gran % (Auto) 0.300 Neut % (Auto) 66.3 Lymph % (Auto) 25.4 [place] % (Auto) 4.9 Eos % (Auto) 2.3 Baso % (Auto) 0.8 Absolute Neuts (auto) 7.9 H Absolute Lymphs (auto) 3.01 Nucleated RBC % 0 Sodium 137 Potassium 3.8 Chloride 106 Carbon Dioxide 25.0 Anion Gap 6 BUN 9 Creatinine 0.88 Estim Creat Clear Calc 90.90 Est GFR (MDRD) Af Amer 97 Est GFR (MDRD) Non-Af 80 BUN/Creatinine Ratio 10.2 Glucose 112 H Calcium 8.8 Serum , Qual Urine Opiates Screen Urine Methadone Screen Ur Barbiturates Screen Ur Phencyclidine Scrn Ur Amphetamines Screen U Methamphetamin-MDMA U Benzodiazepines Scrn Urine Cocaine Screen U Cannabinoids Screen Ur Drug Screen Comment Ethyl Alcohol < 3.0 04/16/21 04/16/21 14:00 14:02 WBC RBC Hgb Hct MCV MCH MCHC RDW Std Deviation RDW Coeff of Ludwin Plt Count MPV Immature Gran % (Auto) Neut % (Auto) Lymph % (Auto) [place] % (Auto) Eos % (Auto) Baso % (Auto) Absolute Neuts (auto) Absolute Lymphs (auto) Nucleated RBC % Sodium Potassium Chloride Carbon Dioxide Anion Gap BUN Creatinine Estim Creat Clear Calc Est GFR (MDRD) Af Amer Est GFR (MDRD) Non-Af BUN/Creatinine Ratio Glucose Calcium Serum , Qual NEGATIVE Urine Opiates Screen NEGATIVE Urine Methadone Screen NEGATIVE Ur Barbiturates Screen NEGATIVE Ur Phencyclidine Scrn NEGATIVE Ur Amphetamines Screen NEGATIVE U Methamphetamin-MDMA NEGATIVE U Benzodiazepines Scrn NEGATIVE Urine Cocaine Screen NEGATIVE U Cannabinoids Screen POSITIVE H Ur Drug Screen Comment Ethyl Alcohol Assessment & Plan Assessment/Plan (1) Alcohol withdrawal: QUALIFIERS: Complication of substance-induced condition: with unspecified complication Qualified Code(s): F10.239 - Alcohol dependence with withdrawal, unspecified PLAN: The patient is a 31 y/o F w/ PMHx: EtOH abuse, Tobacco use, Known Lung Nodules (last f/u 1 year prior), Anxiety and Depression/Bipolar disorder who presents to the [facility] ED on 04/16/21 with history of ongoing consistent heavier EtOH intake since the age of 18, specifically 4-6, 12 ounces beers, Budlite with onset of acute EtOH withdrawal with last drink the evening prior with onset now fatigue, malaise, mild tremor prompting ED evaluation. 1. Acute EtOH Withdrawal: Will admit to [place], routine labs obtained in the ED upon presentation. Given interest in sobriety, will initiate and continue on protocol with taper course of Phenobarbital, scheduled gabapentin for seizure prophylaxis, as needed Catapres, Bentyl, Vistaril, IV fluids, IV antiemetics, Tylenol as needed for pain. Will consult Case management for assistance for transition to next level of rehabilitation care. Mag, phos pending. Maintain on [facility] protocol concurrently. 2. Anxiety and depression/bipolar disorder with suicidal ideations but no plan: Patient evaluated in the emergency room by social work/case management with safety plan contracted, no active plan in place, suicide precautions were discontinued in the emergency room. We will continue patient Abilify and nightly trazodone regimen. 3. Hyperglycemia, mild: Admission glucose 112, continue to monitor outpatient and if necessary assess for prediabetes. 4. Elevated BP without hypertensive diagnosis: Admission BP 136/88 with noted elevations previously with elevated diastolic blood pressures ranging upper 80s to 90s, continue to closely monitor and add regimen if clinically appropriate. 5. Tobacco Abuse: Encouraged cessation, inpatient consultation per RT, NR if desired. 6. Known pulmonary nodules: Patient notes she was last seen 1 year prior and was supposed to followed up but has yet to do so, strongly encouraged follow-up with her PCP and continued evaluation especially given tobacco use history. 7. DVT prophylaxis: Low risk, encourage ambulation. Visit Charges Inpatient E&M: 14561 Init Hosp L3
[2021-04-16 15:47] LABS: AST(SGOT) 15 U/L (15-37); Alanine Aminotransfer ALT/SGPT 16 U/L (13-56); Albumin, Serum 3.8 g/dL (3.2-5.0); Alkaline Phosphatase 49 U/L (45-117); Bilirubin, Direct 0.09 mg/dL (0.00-0.30); Globulin 3.7 g/dL (2.2-4.2); Magnesium 2.1 mg/dL (1.6-2.6); Phosphorus 3.1 mg/dL (2.5-4.9); Protein, Total 7.5 g/dL (6.4-8.2)
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
[2021-04-16 15:57] VITALS: BP 112/70; PULSE 62; RESP 16; TEMP 36.9; O2SAT 100
[2021-04-16 16:26] VITALS: BMI 26.7
[2021-04-16 16:42] VITALS: BP 111/77; PULSE 69; RESP 14; TEMP 37.4; O2SAT 99
[2021-04-16] MEDS: Phenobarbital 32.4 MG Tablet 64.8 MG PO ×2 (17:18→21:25)
[2021-04-16] MEDS: 0.9% Saline Lock 10 ML Syringe IV (17:19)
[2021-04-16] MEDS: Thiamine Hydrochloride 100 MG Tablet PO (17:21)
[2021-04-16] MEDS: Meloxicam 15 MG Tablet PO (17:21)
[2021-04-16] MEDS: Folic Acid 1 MG Tablet PO (17:21)
[2021-04-16] MEDS: Lactated Ringers 1,000 ML 125 ML IV (17:32)
--- NOTE | 2021-04-16 17:44 | NURSING ---
attempted to call pts spouse, ray, no answer
[2021-04-16] MEDS: Gabapentin 300 MG Capsule PO (18:59)
[2021-04-16] MEDS: Ondansetron 8 MG Tablet PO (19:01)
--- NOTE | 2021-04-16 19:26 | CM.ED ---
ERUM Note Reason for Referral: Review of Safety Plan SW called patient's , Angel.He said that his phone had been off. SW updated him about patient currently in [facility]. ERUM advised patient reported she was not suicidal and had reasons to live. ERUM verbally reviewed the safety plan with Angel. He advised that guns were dismantled and torn apart and not functioning. ERUM discussed concerns of having quick access to lethal means of self harm when in crisis and Angel said he understood. ERUM discussed locking patient's meds and Angel agreed to secure meds via lock box. Angel said that patient's drinking has picked up in the last 1 1/2 weeks. Angel said that patient's sister had brought beer and left it and thus patient had accessibility to alcohol. Angel said that this has been a ongoing thing.. and said I am glad she is getting more help. Angel said that prior to patient drinking recently she had not had alcohol for the previous 1-2 months. Angel advised he was sorry that he missed RN's call and this typewriter tester's call earlier. He indicated patient had updated him about going to the 3rd floor. Patient's was in agreement with safety plan. ERUM had given copy of safety plan for him and patient in patient's room. (Copy of RK and Safety Plan are on the patient's chart) ERUM called turner in and advised her that this typewriter tester had updated patient's . Plan: [facility] and [facility] will discuss follow up treatment options for patient. Graciela MEADOWS
--- NOTE | 2021-04-16 19:26 | NURSING ---
head screen worker called and said that she talked to pt's and updated him.
[2021-04-16 20:58] VITALS: BP 95/47; PULSE 59; RESP 16; TEMP 36.9; O2SAT 99
[2021-04-16] MEDS: Famotidine 20 MG Tablet PO (21:25)
[2021-04-16] MEDS: traZODone 50 MG Tablet PO (21:25)
[2021-04-16] MEDS: ARIPiprazole 5 MG Tablet PO (21:25)
[2021-04-17 01:01] VITALS: BP 97/63; PULSE 58; RESP 16; TEMP 37; O2SAT 98
[2021-04-17] MEDS: Phenobarbital 32.4 MG Tablet 64.8 MG PO ×6 (01:06→22:03)
[2021-04-17 04:36] VITALS: BP 103/57; PULSE 61; RESP 14; TEMP 37; O2SAT 98
[2021-04-17] MEDS: Ondansetron 8 MG Tablet PO (04:41)
[2021-04-17 06:30] VITALS: O2SAT 95
[2021-04-17] MEDS: Famotidine 20 MG Tablet PO ×2 (09:53→22:04)
[2021-04-17] MEDS: Folic Acid 1 MG Tablet PO (09:53)
[2021-04-17] MEDS: Meloxicam 15 MG Tablet PO (09:54)
[2021-04-17] MEDS: Thiamine Hydrochloride 100 MG Tablet PO (09:54)
[2021-04-17] MEDS: hydrOXYzine PAM 25 MG Capsule 50 MG PO (10:01)
[2021-04-17 10:04] VITALS: BP 95/62; PULSE 92; RESP 16; TEMP 36.7; O2SAT 99
--- NOTE | 2021-04-17 11:56 | PN.HOSP_ITS ---
Subjective Subjective Feels much better today. Embarrassed because she works here. Objective Data Objective Data Vital Signs: Vital Signs Temp Pulse Resp BP Pulse Ox 36.7 C 92 16 95/62 99 04/17/21 10:04 04/17/21 10:04 04/17/21 10:04 04/17/21 10:04 04/17/21 10:04 Oxygen Delivery Method Room Air Weight: 82.1 kg Body Mass Index (BMI) 26.7 Intake & Output: Intake and Output for Last 24 Hours 04/15/21 04/16/21 04/17/21 23:59 23:59 23:59 Intake Total 1000 / 1000 Balance 1000 / 1000 Lab / Micro Data Result Diagrams: 04/16/21 14:00 04/16/21 14:00 Labs: Laboratory Results - last 24 hr 04/16/21 04/16/21 04/16/21 14:00 14:00 14:00 WBC 11.8 H RBC 4.78 Hgb 14.0 Hct 41.2 MCV 86.2 MCH 29.3 MCHC 34.0 RDW Std Deviation 41.3 RDW Coeff of Ludwin 13.2 Plt Count 272 MPV 9.8 Immature Gran % (Auto) 0.300 Neut % (Auto) 66.3 Lymph % (Auto) 25.4 [place] % (Auto) 4.9 Eos % (Auto) 2.3 Baso % (Auto) 0.8 Absolute Neuts (auto) 7.9 H Absolute Lymphs (auto) 3.01 Nucleated RBC % 0 Sodium 137 Potassium 3.8 Chloride 106 Carbon Dioxide 25.0 Anion Gap 6 BUN 9 Creatinine 0.88 Estim Creat Clear Calc 90.90 Est GFR (MDRD) Af Amer 97 Est GFR (MDRD) Non-Af 80 BUN/Creatinine Ratio 10.2 Glucose 112 H Calcium 8.8 Phosphorus Magnesium Total Bilirubin Direct Bilirubin AST ALT Alkaline Phosphatase Total Protein Albumin Globulin Serum , Qual Urine Opiates Screen Urine Methadone Screen Ur Barbiturates Screen Ur Phencyclidine Scrn Ur Amphetamines Screen U Methamphetamin-MDMA U Benzodiazepines Scrn Urine Cocaine Screen U Cannabinoids Screen Ur Drug Screen Comment Ethyl Alcohol < 3.0 04/16/21 04/16/21 04/16/21 14:00 14:00 14:02 WBC RBC Hgb Hct MCV MCH MCHC RDW Std Deviation RDW Coeff of Ludwin Plt Count MPV Immature Gran % (Auto) Neut % (Auto) Lymph % (Auto) Kings[place] % (Auto) Eos % (Auto) Baso % (Auto) Absolute Neuts (auto) Absolute Lymphs (auto) Nucleated RBC % Sodium Potassium Chloride Carbon Dioxide Anion Gap BUN Creatinine Estim Creat Clear Calc Est GFR (MDRD) Af Amer Est GFR (MDRD) Non-Af BUN/Creatinine Ratio Glucose Calcium Phosphorus 3.1 Magnesium 2.1 Total Bilirubin 0.40 Direct Bilirubin 0.09 AST 15 ALT 16 Alkaline Phosphatase 49 Total Protein 7.5 Albumin 3.8 Globulin 3.7 Serum , Qual NEGATIVE Urine Opiates Screen NEGATIVE Urine Methadone Screen NEGATIVE Ur Barbiturates Screen NEGATIVE Ur Phencyclidine Scrn NEGATIVE Ur Amphetamines Screen NEGATIVE U Methamphetamin-MDMA NEGATIVE U Benzodiazepines Scrn NEGATIVE Urine Cocaine Screen NEGATIVE U Cannabinoids Screen POSITIVE H Ur Drug Screen Comment Ethyl Alcohol Physical Exam Const alert Neck no lymphadenopathy Resp normal respiratory effort and clear to auscultation bilaterally Cardio regular rate, regular rhythm and S1 normal heart sound GI normal to inspection, nondistended, normoactive bowel sounds, non-tender and non-distended Assessment & Plan Assessment/Plan (1) Alcohol withdrawal: QUALIFIERS: Complication of substance-induced condition: with unspecified complication Qualified Code(s): F10.239 - Alcohol dependence with withdrawal, unspecified PLAN: The patient is a 31 y/o F w/ PMHx: EtOH abuse, Tobacco use, Known Lung Nodules (last f/u 1 year prior), Anxiety and Depression/Bipolar disorder who presents to the [facility] ED on 04/16/21 with history of ongoing consistent heavier EtOH intake since the age of 18, specifically 4-6, 12 ounces beers, Budlite with onset of acute EtOH withdrawal with last drink the evening prior with onset now fatigue, malaise, mild tremor prompting ED evaluation. 1. Acute EtOH Withdrawal: * Will admit to [facility], routine labs obtained in the ED upon presentation. Given interest in sobriety, will initiate and continue on protocol with taper course of Phenobarbital, scheduled gabapentin for seizure prophylaxis, as needed Catapres, Bentyl, Vistaril, IV fluids, IV antiemetics, Tylenol as needed for pain. Will consult Case management for assistance for transition to next level of rehabilitation care. Mag, phos pending. Maintain on CIWA protocol concurrently. 2. Anxiety and depression/bipolar disorder with suicidal ideations but no plan: * Patient evaluated in the emergency room by social work/case management with safety plan contracted, no active plan in place, suicide precautions were discontinued in the emergency room. * We will continue patient Abilify and nightly trazodone regimen. * Patient was asking about sertraline. She patient does have a psychiatrist that she follows up with and is scheduled follow-up with her psychiatrist either on the 11th or next month. I advised that she keep that appointment. I informed her that I would hold off on starting any medications because she is already established with someone and she would not have any noticeable change for several weeks anyway. She was in agreement to this. 3. Hyperglycemia, mild: * Admission glucose 112, continue to monitor outpatient and if necessary assess for prediabetes. 4. Elevated BP without hypertensive diagnosis: * stable, likely exacerbated by withdrawal/anxiety * Admission BP 136/88 with noted elevations previously with elevated diastolic blood pressures ranging upper 80s to 90s, continue to closely monitor and add regimen if clinically appropriate. 5. Tobacco Abuse: Encouraged cessation, inpatient consultation per RT, NR if desired. 6. Known pulmonary nodules: * Patient notes she was last seen 1 year prior and was supposed to followed up but has yet to do so, strongly encouraged follow-up with her PCP and continued evaluation especially given tobacco use history. 7. DVT prophylaxis: Low risk, encourage ambulation. Visit Charges Inpatient E&M: 14959 Subs Hosp L2
[2021-04-17 13:35] VITALS: BP 100/61; PULSE 90; RESP 18; TEMP 36.9; O2SAT 99
[2021-04-17] MEDS: Gabapentin 300 MG Capsule PO (18:07)
[2021-04-17] MEDS: ARIPiprazole 5 MG Tablet PO (22:04)
[2021-04-17] MEDS: traZODone 50 MG Tablet PO (22:04)
[2021-04-17] MEDS: 0.9% Saline Lock 10 ML Syringe IV (22:04)
[2021-04-17 22:05] VITALS: BP 114/51; PULSE 101; RESP 16; TEMP 36.9; O2SAT 95
[2021-04-18] MEDS: Phenobarbital 32.4 MG Tablet 64.8 MG PO ×3 (01:43→08:23)
[2021-04-18 02:00] VITALS: BP 94/46; PULSE 65; RESP 16; TEMP 36.7; O2SAT 98
[2021-04-18 08:00] VITALS: BP 111/78; PULSE 68; RESP 12; TEMP 37.4; O2SAT 100
[2021-04-18] MEDS: Folic Acid 1 MG Tablet PO (08:22)
[2021-04-18] MEDS: Thiamine Hydrochloride 100 MG Tablet PO (08:22)
[2021-04-18] MEDS: Meloxicam 15 MG Tablet PO (08:23)
[2021-04-18] MEDS: Famotidine 20 MG Tablet PO (08:23)
--- NOTE | 2021-04-18 09:27 | PCM.DC ---
Discharge Instructions Diet Discharge Diet: No restrictions Activity Discharge Activity: Return to Normal Activity and May Not Drive (For 2 to 3 days) Dressing / Incision Call your doctor if you observe: Fever of 101 or Higher, Numbness or Tingling, Change in Color, Inability to urinate, Inability to have a bowel movement, Using more than one pad per hour, Shortness of breath, Dizziness, Swelling in the ankles, Chest pain, Prolonged hiccupping, Increased palpitations (irregular heartbeat) and Calf discomfort Follow Up Care Test Results: Test results from this visit will be discussed in further detail at your follow-up appointment, if applicable. Discharge Plan Admission Admit Date/Time: 04/16/21 15:10 Primary Reason for Your Visit: Acute alcohol withdrawal Attending Provider: Nicholas Flores Primary Care Provider: Rober Saba Discharge Orders/Prescriptions Prescriptions: New nicotine 14 mg/24 hr Patch 24 Hour 14 mg transdermal DAILY Qty: 30 RF: 0 thiamine HCl (vitamin B1) [Vitamin B-1] 100 mg Tablet 100 mg PO DAILYCM Qty: 30 RF: 0 folic acid 1 mg Tablet 1 mg PO DAILY@0800 Qty: 30 RF: 0 Continued aripiprazole [Abilify] 5 mg tablet 10 mg PO QHS RF: 0 trazodone 50 mg tablet 50 mg PO QHS RF: 0 Changed meloxicam 15 mg tablet 15 tablet PO DAILY PRN (Reason: Pain.) Qty: 0 RF: 0 Referrals / Follow Up: Rober Saba DO [Primary Care Provider] - In 1 Week Disposition Disposition (needs filled in before D/C Order can be placed): Home, self care
--- NOTE | 2021-04-18 09:31 | PCM.DC.SUM ---
Providers Date of Admission: 04/16/21 Primary Care Physician: Dr. Rober Saba, DO Reason For Visit: ETOH WITHDRAWAL Diagnosis Discharge Diagnosis (1) Alcohol withdrawal: Status: Acute Code(s): F10.239 - Alcohol dependence with withdrawal, unspecified Qualifiers: Complication of substance-induced condition: with unspecified complication Qualified Code(s): F10.239 - Alcohol dependence with withdrawal, unspecified Medications at Discharge Home Medications aripiprazole 5 mg tablet 10 mg PO QHS 09/27/20 trazodone 50 mg tablet 50 mg PO QHS 09/27/20 folic acid 1 mg PO DAILY@0800 #30 tab 04/18/21 meloxicam 15 tablet PO DAILY PRN #0 tab 04/18/21 nicotine 14 mg TRANSDERMAL DAILY #30 ea 04/18/21 thiamine HCl (vitamin B1) [Vitamin B-1] 100 mg PO DAILYCM #30 tab 04/18/21 Hospital Course Summary of Care Provided Hospital Course: This 31-year-old female was admitted through ER for acute alcohol withdrawal syndrome. Patient has been doing binge drinking alcohol for last 1 week although usually she drinks 4-6 beer, 12 ounce bottle since age of 18. During hospital course he was treated with phenobarbital treatment regimen along with other supportive medications including gabapentin, Bentyl, Catapres, Vistaril and antiemetics as needed. Patient has history of anxiety and depression/bipolar disorder but no suicidal plan or attempt. Patient also had elevated blood pressure without diagnosis of hypertension. Patient has other comorbidities include chronic tobacco use, known pulmonary nodule. Patient was advised to follow-up PCP for further work-up. Discharge medication reconciliation done. Discharge follow-up instructions completed. Discharge process discussed with the patient and all questions were answered to patient's satisfaction. Scripts were given for nicotine patch, thiamine and folic acid Total time spent, exact 35 minutes on discharge meds reconciliation, examination, coordination of care with nurses and ancillary staff, review of imaging and blood test and discussion with the patient on follow-up instructions Physical Exam Narrative Seen and examined. Patient does not have tremors, shakiness, hallucinations or seizure episode. She wants to go home as she has 3 small children. Lives with her . General: Alert, Oriented x3, Cooperative HEENT: Atraumatic, PERRLA, EOMI, Normocephalic Oral: No Gingival or Mucosal Lesions/ Ulcerations Neck: Supple, No JVD, Negative Carotid Bruits Lungs: Air entry equal in bilateral lung bases. No crepitation/rhonchi Cardiovascular: Regular rate, Regular Rhythm, Normal S1, Normal S2, No murmurs Abdomen: Bowel Sounds Present, Soft, Non Tender, Non-Distended : No renal angle tenderness. No suprapubic tenderness. Extremities: No edema, Capillary Refill Less than 3 Seconds Skin: No rashes, No breakdown Musculoskeletal: No Tenderness to Palpation of Joints or Extremities Neurological: Cranial nerves II-XII grossly intact, Deep Tendon Reflexes 2+/4 and Symmetrical, Neuro grossly intact Psych/Mental Status: Normal Affect, Appropriate. ABG / Lab / Microbiology Data Result Diagrams: 04/16/21 14:00 04/16/21 14:00 D/C Instructions Discharge Diet: No restrictions Discharge Activity: Return to Normal Activity and May Not Drive (For 2 to 3 days) Call your doctor if you observe: Fever of 101 or Higher, Numbness or Tingling, Change in Color, Inability to urinate, Inability to have a bowel movement, Using more than one pad per hour, Shortness of breath, Dizziness, Swelling in the ankles, Chest pain, Prolonged hiccupping, Increased palpitations (irregular heartbeat) and Calf discomfort Meaningful Use Info Meaningful Use Diagnoses (Choose all that apply): None applicable Discharge Plan Admission Admit Date/Time: 04/16/21 15:10 Primary Reason for Your Visit: Acute alcohol withdrawal Attending Provider: Nicholas Flores Primary Care Provider: Rober Saba Discharge Orders/Prescriptions Prescriptions: New nicotine 14 mg/24 hr Patch 24 Hour 14 mg transdermal DAILY Qty: 30 RF: 0 thiamine HCl (vitamin B1) [Vitamin B-1] 100 mg Tablet 100 mg PO DAILYCM Qty: 30 RF: 0 folic acid 1 mg Tablet 1 mg PO DAILY@0800 Qty: 30 RF: 0 Continued aripiprazole [Abilify] 5 mg tablet 10 mg PO QHS RF: 0 trazodone 50 mg tablet 50 mg PO QHS RF: 0 Changed meloxicam 15 mg tablet 15 tablet PO DAILY PRN (Reason: Pain.) Qty: 0 RF: 0 Referrals / Follow Up: Rober Saba, [Primary Care Provider] - In 1 Week Disposition Disposition (needs filled in before D/C Order can be placed): Home, self care Visit Charges Inpatient E&M: 35092 Disch Hosp
[2021-04-18 10:00] VITALS: BP 111/78; PULSE 74; RESP 14; TEMP 37.4; O2SAT 100
== END 2021-04-18 12:02 | disposition home or self-care (01) | DRG 897 ==
LOC: ED 14:50 → MS3 15:57
PROVIDERS: Admitting Provider Family Medicine; Emergency Provider Emergency Medicine; PCP Student in an Organized Health Care Education/Training Program; Visit Provider Internal Medicine
DX: F10.239 Alcohol dependence with withdrawal, unspecified (principal); R45.851 Suicidal ideations; F31.9 Bipolar disorder, unspecified; F41.9 Anxiety disorder, unspecified; F17.210 Nicotine dependence, cigarettes, uncomplicated; R91.8 Other nonspecific abnormal finding of lung field; R73.9 Hyperglycemia, unspecified; R03.0 Elevated blood-pressure reading, without diagnosis of hypertension; Z79.899 Other long term (current) drug therapy
CPT/HCPCS: 36415; 80048; 80076; 80307; 82077; 83735; 84100; 84703; 85025; 99285; J7120; A4216

== ENCOUNTER 2021-05-17 08:45 | Outpatient (RCR) | payer OTHER, MEDICAID, SELFPAY ==
--- NOTE | 2021-05-17 09:01 | BH.SGPN.GN ---
Behaviors/Verbalizations/Mental Status: [] Client alert and oriented, casually dressed and groomed. Eye contact good. Motor activity appropriate. Speech within normal limits. Affect congruent, mood anxious and depressed. Thoughts linear, logical, no signs of hallucinations or delusions. Reviewed client?s symptom tracker, no risk for suicidal ideation, plan, or intent as of 05/17/21. Client Response/Progress/Benefit: [] Client new to IOP treatment; however, responded well to session. She did well to remain attentive, and contributing to discussion. Client reports feeling tired this morning and discussed several stressors leading up to IOP admission. Discussed difficulties in maintaining sober in the past and recent detox as well as familial stressors. Client noted that her primary goals for treatment include making self-care a priority and improving boundary setting skills. Client expressed that reminding herself ?I?m not alone in the struggle? and normalizing mental health treatment was the motivating factor in seeking out group counseling services. Appeared to benefit from connecting with peers and supportive feedback. Will continue IOP tx to improve mood stability and boundary setting, as well as promote healthy coping skills. Narrative Note: []
--- NOTE | 2021-05-17 10:05 | BH.SGPN.GN ---
Behaviors/Verbalizations/Mental Status: []Client alert and oriented, neatly dressed and groomed. Eye contact good. Motor activity appropriate. Speech within normal limits. Affect constricted, mood dysthymic and irritable. Thoughts linear, logical, no signs of hallucinations or delusions. Client Response/Progress/Benefit: []Pt was an active participant in group discussion. Attentive during psychoeducation. Along with peers pt was able to provide insight on the importance of goal-setting. Group identified that goals are important because they motivate, increase self-esteem, and are needed to have progress. Group also worked together to identify barriers to goal-setting which included; negative self-talk, not having supportive people, minimizing progress, and toxic people. Pt reported it has been hard for her to feel accomplished after achieving goals because other people have invalidated her accomplishments in the past. Benefited from increased awareness of benefits and barriers to goal-setting. Pt will continue in IOP to prevent decompensation, improve emotional regulation skills, and maintain sobriety. Narrative Note: []
--- NOTE | 2021-05-17 11:10 | BH.SGPN.GN ---
Behaviors/Verbalizations/Mental Status: []Eye contact is good. Motor activity is appropriate. Appearance is casual. Speech is Appropriate. Mood is anxious. Affect is constricted. Thoughts are linear and logical. No evidence of psychosis. Client Response/Progress/Benefit: []Pt was an active participant in group discussions and activities. Along with group members was able to identify barriers during group beach ball activity and strategies they utilized to overcome these barriers (communicating, encouraging others). Able to identify a SMART goal for the next week which was to journal and identify positives every night before bed. Pt stated this will help benefit her by improving mood and functioning. Pt was able to identify barriers and obstacles to these goals and strategies to overcome these barriers. Benefited from group by being able to utilize SMART educate to create a goal. Narrative Note: []
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
--- NOTE | 2021-05-18 13:02 | BH.DR.ITP ---
Initial Treatment Plan Patient Information Visit Information: ADMISSION DATE: EXPECTED LOS: 4-6 weeks Problems/Symptoms Problem #1:: Depression and erratic moods Symptom:: Sadness, irritability, lack of motivation, decreased sleep, low energy, fatigue, guilt, worthlessness, passive thoughts of Problem #2:: Anxiety Symptom:: Worry, racing thoughts, fear, nightmares, flashbacks, avoidance
== END 2021-05-18 23:59 ==
LOC: BHIOP 08:45
PROVIDERS: PCP Student in an Organized Health Care Education/Training Program; Referring Provider Psychiatry & Neurology Psychiatry; Visit Provider Psychiatry & Neurology Psychiatry
DX: F31.9 Bipolar disorder, unspecified (principal); F41.1 Generalized anxiety disorder; F43.10 Post-traumatic stress disorder, unspecified; Z72.89 Other problems related to lifestyle; F12.90 Cannabis use, unspecified, uncomplicated; F90.9 Attention-deficit hyperactivity disorder, unspecified type; Z79.899 Other long term (current) drug therapy; Z91.5 Personal history of self-harm
CPT/HCPCS: S9480; 90853

== ENCOUNTER 2021-05-17 17:03 | Emergency (ER) | payer OTHER, MEDICAID, SELFPAY ==
[2021-05-17 17:04] VITALS: BP 115/78; PULSE 92; RESP 14; TEMP 36.8; O2SAT 95; BMI 26.5
--- NOTE | 2021-05-17 18:07 | EDS_ITS ---
HPI History of Present Illness Chief Complaint: Laceration Narrative Narrative: Patient presenting with laceration to the right arm distally on the forearm which she states that her dog scratched her. She states that just adjacent to this is some tissue there is an area where she was experience allergic reaction to the dye that was used for the tattoo. She states that it is kind of swollen and friable and this is why the tissue tore. Patient has concerned that if we try to suture this that it may tear. She is right-hand dominant. Last tetanus is unknown. No active bleeding. [facility] Medical History Alcohol abuse Anxiety and depression ASCUS with positive high risk HPV Genital herpes History of meningitis History of multiple pulmonary nodules Palpitations Tobacco use Varicosities of leg Home Medications aripiprazole 5 mg tablet 10 mg PO QHS 09/27/20 [History Last Taken 04/15/21 22:00] trazodone 50 mg tablet 50 mg PO QHS 09/27/20 [History Last Taken 04/01/21 22:00] folic acid 1 mg PO DAILY@0800 #30 tab 04/18/21 [Rx Last Taken Unknown] meloxicam 15 tablet PO DAILY PRN #0 tab 04/18/21 [Rx Last Taken 04/15/21 07:00] nicotine 14 mg TRANSDERMAL DAILY #30 ea 04/18/21 [Rx Last Taken Unknown] thiamine HCl (vitamin B1) [Vitamin B-1] 100 mg PO DAILYCM #30 tab 04/18/21 [Rx Last Taken Unknown] Allergy/AdvReac Type Severity Reaction Status Date / Time azithromycin [From Zithromax] Allergy Rash Verified 05/17/21 17:08 red dye AdvReac Vomiting Verified 05/17/21 17:08 Family History Mother Anxiety and depression Bipolar disorder Polysubstance abuse Other Arthritis Cancer Heart disease Myocardial infarction Surgical History History of arthroscopic knee surgery History of tubal ligation History of varicose vein stripping Social History household members: spouse and family Smoking Status: Current every day smoker tobacco type: cigarettes and cigars quit status: has quit before alcohol intake: current alcohol intake frequency: 3 or more drinks per day Alcohol type: beer details: 4-6, 12 ounce beers daily since age 18. substance use type: marijuana caffeine: Yes Type: carbonated beverages Number of servings: 2, coffee and tea what type of physical activity do you participate in: none ROS ROS ED Constitutional Constitutional ED: Reports frequent falls; Denies chills or sweats Eyes Eyes: Denies blurry vision or diplopia ENT ENT ED: Denies rhinorrhea or sore throat Cardiovascular Cardiovascular: Denies chest pain Respiratory/Chest Respiratory/Chest: Denies cough or dyspnea Gastrointestinal Gastrointestinal: Denies abdominal pain, nausea or vomiting Genitourinary Genitourinary ED: Denies dysuria or hematuria Musculoskeletal Musculoskeletal: Denies myalgias or neck pain Integumentary Reports other Details: Laceration to right forearm ; Denies abscess Neurologic Neurologic: Denies headache(s), paresthesias or weakness Psychiatric Psychiatric: Denies anxiety or depression EXAM Physical Exam Const Vital Signs: 05/17/21 17:04 Temperature 98.2 F Temperature Source Temporal Pulse Rate 92 Respiratory Rate 14 Blood Pressure 115/78 Blood Pressure Mean 90 Pulse Ox 95 Oxygen Delivery Method Room Air Positive well nourished General Appearance ED: NAD HEENT normocephalic and atraumatic Eyes PERRL and EOMs intact bilaterally Extremity full ROM General Extremety ED: Negative for edema General Extremity: Negative for edema Neuro oriented x3 Sensorium / Orientation: alert Psych mental status grossly normal Skin Skin Narrative: Laceration to right forearm over tattoo which is linear with a vertical lie. This is embedded in her tattoo here. There is some tissue which does appear to be swollen slightly adjacent to the margin of the laceration. MDM MDM MDM Narrative Medical decision making narrative: Patient presenting with laceration on the right forearm with an area of friability secondary allergic reaction to her tattoo dye. Patient thus tetanus was unknown and this was updated. Patient had let placed on the wound so I did not have to locally inject and distort the tissue given I was trying to line up the tattoo margins. I was able to line up the central portion of the wound using 1 stitch. This did approximate the wound margins both proximally and distally. I will reinforce this with Steri-Strips as I do not want to tear the skin trying to put more sutures in. Patient tolerated the procedure well. She is counseled on wound care and monitoring for signs of infection. She will follow-up for suture removal. Patient stable discharge at this time. Impression: 1. Right forearm laceration 1.5 cm Lab Data Attestation: I reviewed the patient's lab results. Procedures Lacerations Forarm laceration: Length: 18 in Depth: Skin Shape: Linear Prep: Sterile Conditions and Shure-Clens Irrigated (ml): 250 Number of Sutures/Tiffanie: 1 Suture Information: Ethilon Comment: 1.0 Discharge Plan Triage Chief Complaint: Laceration ED Provider: Johnny Hood Dx/Rx/DC Orders Instructions: ED Laceration: All Closures Prescriptions: No Action aripiprazole [Abilify] 5 mg tablet 10 mg PO QHS RF: 0 trazodone 50 mg tablet 50 mg PO QHS RF: 0 nicotine 14 mg/24 hr Patch 24 Hour 14 mg transdermal DAILY Qty: 30 RF: 0 thiamine HCl (vitamin B1) [Vitamin B-1] 100 mg Tablet 100 mg PO DAILYCM Qty: 30 RF: 0 folic acid 1 mg Tablet 1 mg PO DAILY@0800 Qty: 30 RF: 0 meloxicam 15 mg tablet 15 tablet PO DAILY PRN (Reason: Pain.) Qty: 0 RF: 0 Primary Care Provider: Rober Saba Referrals: Rober Saba DO [Primary Care Provider] - Disposition Disposition: Home, Self Care
[2021-05-17] MEDS: Lidocaine/Epi/Tetracaine 50 ML 1 APPLIC TOPICAL (18:18)
[2021-05-17] MEDS: Diphth,Pertuss(Acell),Tet Vac 0.5 ML Vial IM (18:36)
[2021-05-17] MEDS: Lidocaine 1% /Epi 1:100 (20ml) 20 ML Vial INFILT (19:22)
[2021-05-17 19:23] VITALS: RESP 16
== END 2021-05-17 19:23 | disposition home or self-care (01) ==
PROVIDERS: Emergency Provider Student in an Organized Health Care Education/Training Program; PCP Student in an Organized Health Care Education/Training Program
DX: S51.811A Laceration without foreign body of right forearm, initial encounter (principal); F17.210 Nicotine dependence, cigarettes, uncomplicated; X58.XXXA Exposure to other specified factors, initial encounter
CPT/HCPCS: 12001; 90715; 96372; 99283

== ENCOUNTER 2021-05-19 08:28 | Outpatient (RCR) | payer OTHER, MEDICAID, SELFPAY ==
--- NOTE | 2021-05-20 09:05 | BH.SGPN.GN ---
Behaviors/Verbalizations/Mental Status: [] Eye contact is good. Motor activity is appropriate. Appearance is casual. Speech is Appropriate. Mood is depressed/irritable. Affect is congruent. Thoughts are linear and logical. No evidence of psychosis. Reviewed daily check in sheet and no reports of suicidal ideations or intent. Client Response/Progress/Benefit: [] Pt was an active participant in group discussion on the role of blame in mental health. Emotion for today is drained. Daily symptom tracker notes 4/5 for depression and anger. Shared several psychosocial stressors since last IOP and how these impacted her mental health. Conflict with and kids which led to her isolating and avoiding. I just shut down. Regret about her response. Unable to identify any mental health wins or progress. Possible benefit from group support and encouragement. Will continue in IOP to prevent decompensation, increase healthy coping, and to stablize mood. Narrative Note: []
--- NOTE | 2021-05-20 10:10 | BH.SGPN.GN ---
Behaviors/Verbalizations/Mental Status: []Client alert and oriented, casual dress, hygiene tended to. Eye contact fiar. Motor activity appropriate. Speech within normal limits. Affect constricted, mood dysthymic. Thoughts linear, logical, no signs of hallucinations or delusions. Client Response/Progress/Benefit: []Pt mostly passive participant AEB pt providing input during discussion and listened attentively to peers. Pt reported she agreed with the quote that one can't solve a problem if use the same thinking used to create the problem. Pt worked with group to identify benefits of effective problem solving. Listened during psychoeducation about ABCDE problem solving method. Worked with group to identify barriers to effective problem solving which included: anxious thoughts, impatience, denial, not having skills, feeling overwhelmed, and worries about what other people think. Pt seemed to benefit from increased awareness of strategies to help solve a problem. Pt to continue IOP to continue use of healthy coping and prevent decompensation. Narrative Note: []
--- NOTE | 2021-05-20 15:25 | BH.MTP_ITS ---
Master Treatment Plan - Patient Information Program Physician:: Tracey Torrez Primary Therapist:: George Frost - Psychiatric Diagnoses Psychiatric Diagnoses:: Bipolar, unspecified. ALFREDO Diagnosis Code(s):: f31.9 - Estimated LOS Estimated LOS (in weeks):: 6 Problem/Goal #1 - Problem/Goal #1 Stated Goal:: Client will increase mood stability, decrease depressive symptoms, irritability, and suicidal ideation due to Bipolar I through Intensive Outpatient Program AEB decrease in DSM Depression and Irritability scales Description of Barriers: hx of poor communication and unhealthy coping skills. Financial struggles. Limited support. Functional Impact: Depression, erratic mood swings, and anger interfere with familial relationships and have led to inability to function at work. - Objectives Objective #1 Stated Objective: Client will reduce anger outbursts and irritability due to MDD through IOP. Interventions: Through individual and group counseling Client will learn and implement 2 conflict resolution skills to manage interpersonal problems which she reports are significant stressors. Discharge Criteria: Pt will identify 2 strategies to improve communication with spouse and use these consistently. Target Date: 06/30/21 Review Date: 06/16/21 Objective #2 Stated Objective: Client will increase mood stability, increase management of depressive symptoms, and reduce suicidal thoughts. Interventions: Through group and individual counseling Client will learn and utilize 2-3 healthy coping strategies to better manage depressive and mood symptoms as shown by reduced DSM-5 scores. Discharge Criteria: Pt will be able to identify and consistently apply at least 2 healthy coping skills for depressive episodes. Target Date: 06/30/21 Review Date: 06/16/21 Problem/Goal #2 - Problem/Goal #2 Stated Goal:: Client will increase emotional regulation and reduce intensity and duration of anxiety symptoms as evidenced by pt's self report and reduction in Anxiety subscales of the DSM cross-cutting scales. Description of Barriers: Financial struggles. Limited support. Hx of non- compliance with medications and treatment. Functional Impact: Mental health symptoms have interfered with familial relationships and have led to inability to function at work. Two hospit alizations for mental health in the last 9 months. - Objectives Objective #1 Stated Objective: Client will identify 2-3 anxiety triggers and 2 calming coping skills to reduce anxiety as shown by decreased DSM-5 cross cutting symptom measure scores. Interventions: Through individual and group counseling client will increase awareness of anxiety triggers and educate client on the ways anxiety impacts overall health. Therapist will teach client various calming and mindfulness strategies to promote emotional regulation and reduction of anxiety. Therapist will encourage client to implement healthy coping skills on a regular basis. Discharge Criteria: Client will be able to identify 2-3 anxiety triggers and be able to consistently utilize 2 calming skills. Target Date: 06/30/21 Review Date: 06/16/21
--- NOTE | 2021-05-20 15:25 | BH.MDN ---
Multi-Disciplinary Note - Note 45-min Individual Time Started:: 11:30 Date: 05/20/21 Purpose of session/treatment goals addressed:: Reviewed progress and current symptoms. Begin working on treatment plan goals. Eye Contact:: Fair Motor Activity:: Restless Appearance:: Casual Speech:: Appropriate Mood:: Irritable Affect:: Congruent Thoughts:: Linear, Logical, No evidence of hallucinations/delusions noted Staff Interventions:: Utilized DE techniques to elict change. Provided education on assertive communication. Role-played assertive communication. Client Response:: Pt reports that she is doing OK with IOP and getting used to group counseling. Fearful that others are judging her. Able to identify goals which include anger management, stabilize mood, and to improve communication with her spouse. Talked at length regarding struggles and conflict with which impact both of their mental health. Pt admits that she needs to make changes in the relationship and how she manages conflict. Discussed her trauma history and how this impacts her relationships. Wants to be able to work together with to quit playing mind games with each other. Coping skill is primarily avoidance, isolation, and lashing out/blaming others. Risks/Concerns:: Denies any active suicidal ideations, plan, or intent. Progress Toward Goals/Plan:: Progress noted per pt report. Feels that visit with psychiatrist was very helpful and is agreeable to get back on medications, however has not picked up medications yet. Significant stressors at home and feels overwhelmed both at work and home. Conflictual relationship with . Plan is to continue in IOP to stabilize mood, maintain safety, prevent decompensation, and learn healthy communication and coping skills. Time Stopped:: 12:15
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
--- NOTE | 2021-05-24 10:00 | BH.COMM ---
Communication Note - Communication with Client Communication Note: Did not show for IOP. Pt mixed up scheduled days last week noting that her work schedule changes frequently. Called and phone is disconnected. No concerns for safety noted during last visit on 05/20/21. Scheduled to be at [facility] tomorrow.
--- NOTE | 2021-05-25 09:00 | BH.SGPN.GN ---
Behaviors/Verbalizations/Mental Status: []Client alert and oriented, casually dressed and groomed. Eye contact good. Motor activity appropriate. Speech within normal limits. Affect flat, mood reporting content, but appearing irritable. Thoughts linear, logical, no signs of hallucinations or delusions. Reviewed client?s symptom tracker. Client was 3/5 for thoughts of suicide and 0/5 for intent/risk. Client Response/Progress/Benefit: C[]Client responded well to session, receptive to feedback and strategies. Client reports feeling content this morning, but client admits to having a rough day earlier this week. Client shared she was doing well with getting out of bed and starting my day but then client had a random suicidal ideation and this really got me. Client stated she isolated, slept, and was frustrated with herself after having this thought. The group and insole coverer offered emotional support and psychoeducation on automatic thoughts. Appeared to benefit from gaining insight on automatic thinking. Client shared she plans to spend today with her children which gives something to look forward to. Will continue IOP tx to prevent decompensation, promote sobriety, and learn healthy coping skills. Narrative Note: []
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
[2021-05-25 10:49] VITALS: BP 128/78; PULSE 80
--- NOTE | 2021-05-25 12:43 | BH.MDN_ITS ---
Multi-Disciplinary Note - Note 45-min Individual Time Started:: 11:15 Date: 05/25/21 Purpose of session/treatment goals addressed:: Reviewed current symptoms and progress in IOP. Addressed treatment goals 1 and 2. Eye Contact:: Good Motor Activity:: Restless Appearance:: Casual Speech:: Appropriate Mood:: Irritable, Depressed Affect:: Congruent Thoughts:: Linear, Logical, No evidence of hallucinations/delusions noted Staff Interventions:: Utilized MD techniques to elicit change behaviors. Provided psychoeducation on cognitive distortions and encouraged her to complete a thought record. Processed recent setbacks. Client Response:: Pt admitted that she had relapsed on alcohol on 05/22/21 while at a family constitution party. Drank to self-medicate her anxiety and stress related to the constitution party and being around certain people. She admits that she made up her mind to drink prior to the constitution party. Feels that she is less stressed and irritable when she drinks. Drank 6 beers and some jello shots. Remorseful and disappointed in herself. Has not drank since and denies any cravings. Challenged her on utilizing alcohol to mask emotions and overcome stress and was open to problem- solving other ways to manage the distress in the future. Significant depression yesterday which resulted in not showing up for IOP and isolating in bed for most of the day. She reports an intrusive thought that she should hang herself. Denied that she had any intent. Describes the thought as intrusive and fleeting. At no point did she feel that she was a danger to herself. [place] guilty for having this thought which led to depression. Overall reported feeling drained and defeated from the moment she woke up yesterday till 3pm. Denies any SI, plan, or intent today. She struggles to identify any self-talk which led to depression or kept her in depressed mood. Around 3pm yesterday she got out of bed and was functioning at baseline. Discussed emotional struggles with which was unlike me. Despite struggles she does report decreased conflict with which was goal set last week. Risks/Concerns:: Denies any active suicidal ideations, plan, or intent. Future- oriented. Protective factors. Identifies thought yesterday as fleeting with no trigger. Does not present as imminent danger to self due to no active si, plan, or intent. No criteria for pink slip or involuntary admission. Progress Toward Goals/Plan:: No progress noted. Recent relapse on alcohol. Depressive episode yesterday in which she did not attempt to utilize any skills. Slept, isolated, and shut down when in distress. Slept as a way to cope and escape. Limited insight on triggers or even self-talk. Still has not filled medications which were prescribed a week ago. Will continue in IOP to maintain safety, increase healthy coping, and stabilize mood. Time Stopped:: 12:00
--- NOTE | 2021-05-27 09:00 | BH.SGPN.GN ---
Behaviors/Verbalizations/Mental Status: []Client alert and oriented, casually dressed and groomed. Eye contact good. Motor activity appropriate. Speech within normal limits. Affect constricted, mood euthymic. Thoughts linear, logical, no signs of hallucinations or delusions. Reviewed client?s symptom tracker, no risk for suicidal ideation, plan, or intent as of 05/27/21 Client Response/Progress/Benefit: []Client responded well to session, attentive and engaged. Client reports feeling actually good this morning. Client stated she and her children went to a store yesterday and they had a good time. client also shared this week hasn't been terrible meaning it has been less stressful. Client stated work was insane but client was able to set healthy boundaries with her coworkers and advocate for herself. Client reports feeling a little anxious because this will be a busy weekend with work and her children's activities. Discussed ways client can practice self-care over the weekend and client stated she will ask her to go with their daughter tonight so client can rest. Appeared to benefit from reflecting on positives. Will continue IOP tx to increase healthy coping skills, reduce negative thinking patterns, and improve daily functioning. Narrative Note: []
--- NOTE | 2021-05-27 10:12 | BH.SGPN.GN ---
Behaviors/Verbalizations/Mental Status: []Client alert and oriented, casually dressed and groomed. Eye contact fair to good. Motor activity appropriate. Speech within normal limits. Affect congruent, mood depressed and agitated. Thoughts linear, logical, no signs of hallucinations or delusions. Client Response/Progress/Benefit: [] Pt was an engaged participant in group discussion, providing input and was attentive during psychoeducation. Participated in short activity about automatic thoughts, indicating relating to how automatic thoughts can influence behaviors and communication with others. Group was primarily educational, therapist introduced and gave examples of the 10 cognitive distortions. Benefited from education and increased awareness of cognitive distortions and role that they play in negative thoughts and emotions. Pt reported connecting with the following distortions: all or nothing thinking, emotional reasoning, and disqualifying the positives Will continue IOP tx to prevent decompensation, increase healthy coping skills, and improve daily functioning impacted by depression and irritability. Narrative Note: []
--- NOTE | 2021-05-31 09:08 | BH.SGPN.GN ---
Behaviors/Verbalizations/Mental Status: []Eye contact is good. Motor activity is appropriate. Appearance is casual. Speech is Appropriate. Mood is depressed and anxious. Affect is congruent. Thoughts are linear and logical. No evidence of psychosis. Reviewed daily check in sheet and no reports of suicidal ideations or intent. Client Response/Progress/Benefit: []Pt was an attentive participant AEB actively listening and providing supportive feedback, as well as willingness to process with group. Pt reports emotion for the day as ?exhausted? as she had a very busy weekend and is still struggling to establish healthy boundaries with herself and her supports. Shared caring for her after her was in an accident on Sunday, working, and attending all of her children?s events. Pt noted that she has plans to go to her daughter?s horse show this afternoon but would rather take a break for herself. Notes feeling guilty about this and as though she needs to make up for not being there for her children in the past by going out of her way to do things now. Pt receptive of support from the group in challenging distortions and recognize importance of self-care in her ability to parent as well. Expressed plans to spend time on her own this afternoon as self-care. Benefited from group support, encouragement, and feedback. Will continue in IOP to improve coping repertoire, prevent decompensation, and improve overall mood stability. Narrative Note: []
--- NOTE | 2021-05-31 10:15 | BH.SGPN.GN ---
Behaviors/Verbalizations/Mental Status: []Client alert and oriented, casually dressed and groomed. Eye contact good. Motor activity appropriate. Speech within normal limits. Affect congruent, mood anxious. Thoughts linear, logical, no signs of hallucinations or delusions. Client Response/Progress/Benefit: []Client engaged during session AEB client contributing thoughts throughout discussion and completing worksheet. Connected with discussion on crisis and how coping with external crises by using unhealthy coping skills could result in a personal crisis. Group reflected on the importance of having awareness of personal warning signs in order to prevent reaching crisis point. Group identified potential warning signs for crisis and client completed the personal warning signs worksheet. Client identified personal crisis warning signs to include: anger outbursts, shutting down, isolation, and sleeping too much.. Client benefited by increasing awareness of what leads to crisis and personal warning signs. Pt will continue IOP to improve mood stability, increase healthy coping and prevent decompensation.
--- NOTE | 2021-05-31 11:15 | BH.SGPN.GN ---
Behaviors/Verbalizations/Mental Status: []Client alert and oriented, casually dressed and groomed. Eye contact good. Motor activity appropriate. Speech within normal limits. Affect constricted. Mood irritable and stressed. Thoughts linear, logical, no signs of hallucinations or delusions. Client Response/Progress/Benefit: []Client responded well to session as evidenced by client listening attentively to others and providing strategies during discussion. Client identified warning signs for crisis and gained further awareness of earliest warning signs. Client created a crisis action plan to help client better manage warning signs for crisis. Client?s action plan for sleeping too much included coping skills such as: reducing caffeine intake, asking self why she wants to sleep, and opposite action. Client appeared to benefit from creating a crisis action plan and increasing self-awareness. Client to continue IOP tx to promote use of healthy coping skills to replace drinking and improve mood stability. Narrative Note: []
--- NOTE | 2021-06-02 09:01 | BH.SGPN.GN ---
Behaviors/Verbalizations/Mental Status: []Pt eye contact good, casually dressed, motor activity appropriate, speech normal rate and tone, mood euthymic, full affect, thoughts linear and intact, no evidence of delusions or hallucinations. Reviewed client?s symptom tracker, no signs of suicidal ideation, plan, or intent as of today. Client Response/Progress/Benefit: []Pt responded well to session AEB pt listening attentively to peers, and openly sharing thoughts and feelings. Pt reported feeling very invigorated today because she found a deal to buy a pool for $400 dollars off. Pt stated she's always wanted a pool and excited she can finally have one. Pt reported she has been working on her goal of opposite action by making herself do tasks throughout day even when she doesn't want to do anything. Pt stated she has no current stressors. Progress noted with pt reporting improved mood. Pt to continue IOP to stabilize moods, increase healthy coping and prevent decompensation. Narrative Note: []
--- NOTE | 2021-06-02 09:34 | BH.COMM ---
Communication Note - Communication with Client Communication Note: Therapist checked-in with client due to client's regular IOP therapist being on vacation. Client did not present with any major issues, so this therapist reviewed the depression maintenance cycle with client. Discussed client's personal thinking and behavior patterns that reinforce depression. Also reviewed the though log and gave client a worksheet on 20 ways to combat negative thinking.
--- NOTE | 2021-06-02 10:02 | BH.SGPN.GN ---
Behaviors/Verbalizations/Mental Status: []Eye contact is good. Motor activity is appropriate. Appearance is casual. Speech is Appropriate. Mood is euthymic. Affect is congruent. Thoughts are linear and logical. No evidence of psychosis. Client Response/Progress/Benefit: [] Pt was an attentive participant and actively engaged throughout group discussion and activity. Attentive during psychoeducation and taking notes. Reflected connecting with topic of personal pitfalls and how they can impede mental health treatment progress. Pt shared that not talking to supports about what is going on could lead to continuing to maintain depression. Expressed ?Being fed-up with being stuck can lead to change?. Pt and peers provided examples of personal pitfalls or setbacks that impact mental health which included; isolation, avoidance, procrastination, denial, poor self-care, and ruminating on externals. During experiential activity pt along with peers identified several pitfalls from the activity that are also associated with mental health which included; poor communication, assumptions, lack of awareness, negative self-talk, fear of failure, and personalizing. Did well to provide possible solutions to experiential activity. Benefited from group by increasing awareness of pitfalls which can impact mental health. Pt will continue in IOP to maintain gains, further improve mood stability, and promote healthy skill application. Narrative Note: []
--- NOTE | 2021-06-02 11:00 | BH.SGPN.GN ---
Behaviors/Verbalizations/Mental Status: []Client alert and oriented, casually dressed and groomed. Eye contact good. Motor activity appropriate. Speech within normal limits. Affect constricted, mood euthymic. Thoughts linear, logical, no signs of hallucinations or delusions. Client Response/Progress/Benefit: []Client receptive of session, engaged throughout AEB client actively listening and contributing to discussion, as well as taking notes. Client completed worksheet identifying personal pitfalls impacting mental health progress. Client identified the following pitfalls: alcohol use, isolation, apathy, and anger outbursts. Group learned different coping skills to help manage pitfalls. Client will work on overcoming anger outbursts by practicing mindfulness and ?catching myself? more often. Benefited from identifying personal pitfalls and strategies to overcome these pitfalls. Will continue IOP tx to prevent decompensation, maintain sobriety, and increase emotional regulation skills. Narrative Note: []
--- NOTE | 2021-06-06 09:00 | BH.SGPN.GN ---
Behaviors/Verbalizations/Mental Status: []Client alert and oriented, neatly dressed and groomed. Eye contact good. Motor activity appropriate. Speech within normal limits. Affect congruent-tearful during check-in, mood euthymic. Thoughts linear, logical, no signs of hallucinations or delusions. Reviewed client?s symptom tracker, no risk for suicidal ideation, plan, or intent as of 06/06/21 Client Response/Progress/Benefit: C[]Client responded well to session, offering supportive statements to peers. Client reports feeling happy this morning. Client shared since quitting her second job and focusing on my family client has not had many stressors. Client became tearful sharing how good it feels to have time with her children and how proud of them she is. Client stated she has been making progress in making the most of frustrating situations and looking at positives. Client can continue to benefit from IOP as client can improve mood stability and further reduce irritability. Appeared to benefit from reflecting on progress and gaining support from peers. Will continue IOP tx throughout this week. Narrative Note: []
--- NOTE | 2021-06-06 10:15 | BH.SGPN.GN ---
Behaviors/Verbalizations/Mental Status: [] Eye contact is good. Motor activity is appropriate. Appearance is casual. Speech is Appropriate. Mood is euthymic. Affect is congruent. Thoughts are linear and logical. No evidence of psychosis. Client Response/Progress/Benefit: [] Pt was an active participant in group discussion and activity. Attentive during psychoeducation on external coping skills and how coping skills can positively and negatively impact mental health. Reported often struggling with the thought that ?it?s my load so I should carry it alone. I will not talk about it and tell myself I have to keep it myself?. Provided insight into consequences this has on her mental health. Pt along with peers provided their thoughts and insights on the definition of coping skills. Pt noted ?coping skills are ?skills that helps you get through difficult times?. Pt along with peers worked together to identify barriers to using healthy coping skills which included; it?s easier, comfortable, habitual, or they don?t know other ways of coping. Worked within small group to complete challenge activity requiring use of several coping skills. Benefited from increased awareness of coping skills, benefits in using healthy coping skills, and common coping skill barriers. Will continue in IOP to maintain sobriety, stabilize mood, and increase heathy coping. Narrative Note: []
--- NOTE | 2021-06-06 11:15 | BH.SGPN.GN ---
Behaviors/Verbalizations/Mental Status: []Client alert and oriented, casual dress, hygiene tended to. Eye contact fair. Motor activity appropriate. Speech within normal limits. Affect congruent, mood euthymic. Thoughts linear, logical, no signs of hallucinations or delusions. Client Response/Progress/Benefit: []Client responded well to session, actively listening and providing examples. Pt identified she relies too heavily on internal coping skills because she has difficulty asking for help. Recognizes the consequences of not accepting help. Group discussed the different categories of coping skills which included distraction, emotional release, grounding, self-love, and thought challenging. Client participated in creating a coping skills ?menu? from the five categories of coping skills. Client wrote down her coping skills menu but did not share out loud with the group. Appeared to benefit from increasing repertoire of healthy coping skills. Will continue tx to increase confidence, challenge distorted thoughts and prevent decompensation.
--- NOTE | 2021-06-07 09:05 | BH.SGPN.GN ---
Behaviors/Verbalizations/Mental Status: [] Eye contact is good. Motor activity is appropriate. Appearance is casual. Speech is Appropriate. Mood is euthymic. Affect is full. Thoughts are linear and logical. No evidence of psychosis. Reviewed daily check in sheet and no reports of suicidal ideations or intent. Client Response/Progress/Benefit: [] Pt was an active participant in group discussion. Attentive. Provided appropriate feedback. Emotion for today is zakiya. Able to identify some mental health wins stating this was a good week. Walked with her kids to get ice cream yesterday and was mindful and focused on the present which was helpful. Shared a significant stressor last evening which was that her mother, whom she has not spoken too in 10 years, reached out via social media. Pt reports she experienced an array of thoughts and emotions which was overwhelming. This led to isolation and sleeping to cope. Discussed the conflicted relationship with her mother there is a lot of hate there. Less overwhelmed this AM and reports that she has developed a strategy to proceed with her mother. Progress note per pt report. Improved mood. Utilzing skills. Benefited from group support, encouragement, and feedback. Will continue in IOP to maintain safety, stabilize mood, and increase healthy coping. Narrative Note: []
--- NOTE | 2021-06-07 10:16 | BH.SGPN.GN ---
Behaviors/Verbalizations/Mental Status: [] Client alert and oriented, casually dressed and groomed. Eye contact good. Motor activity appropriate. Speech within normal limits. Affect congruent, mood dysthymic. Thoughts linear, logical, no signs of hallucinations or delusions. Client Response/Progress/Benefit: [] Pt actively engaged in group discussion on conflict and the potential benefits of healthy approaches to conflict on mental health as well as barriers in taking a healthy approach to conflict resolution. Pt shared ?Conflict may help you relate to others. From personal experience, it has improved my relationship?. Further elaborated that it helped to resolve some difficult things in her relationship she had been avoiding. Pt attentive and engaged during psychoeducation about different conflict styles (avoidant, accommodating, cooperative, and competing). Pt identified most often uses competing style conflict for external conflict and avoiding for internal conflict. Seemed to benefit from increased awareness of the different conflict styles. Pt to continue IOP to continue use of healthy coping skills, continue improving mood stability, and prevent decompensation. Narrative Note: []
--- NOTE | 2021-06-07 12:18 | BH.MDN ---
Multi-Disciplinary Note - Note 45-min Individual Time Started:: 11:30 Date: 06/07/21 Purpose of session/treatment goals addressed:: Reviewed progress in IOP. Assessed current symptoms. Addressed treatment plan goals Eye Contact:: Good Motor Activity:: Appropriate Appearance:: Casual Speech:: Appropriate Mood:: Euthymic Affect:: Full Thoughts:: Linear, No evidence of hallucinations/delusions noted Staff Interventions:: Utilized CA techniques to elicit change behaviors. Praised pt for her efforts and for utilizing skills learned in group. She did not complete homework from previous session however during session we did focus on thought reframing and challenging. Client Response:: Pt reports improved mood and communication in the past week. Reports utilizing several skills which have postively impacted her mental wellness and relationships. Pt states I don't feel as crazy. Learning several skills in groups. Feels increased support and decreased stigma due to IOP and interactions with peers in the program. She had reported feeling numb her first week in IOP however reports I actually cried yesterday and reports feelings of happiness and love. Decreased conflict with her as she is utilizing communication skills learned in IOP. Gave several examples of situations where she was able to interact more effectively with her . They are working together more often. She also started her medications recently as well. Improved sleep. Recent stressor is that her mother, which whom she has not spoken in 10 years, reached out via FB last night. This led to anger and anxiety which was overwhelming for patient. She choose to isolate and sleep to cope which she believes was beneficial as it gave her some time think and not impulsively react. She has come up with a strategy on how she will proceed with her mother. Risks/Concerns:: No risks or concerns noted. Progress Toward Goals/Plan:: Progress noted per pt report. Utilizing skills. Consistent and engaged in treatment. Reports that she is benefiting from IOP and the groups. Began medications. Sleeping improved. Denies any alcohol use since 05/22/21. She continues to be impulsive at times and while improved mood management she admits to continued outbursts. Continues to report racing thoughts. Will continue in IOP to maintain safety, prevent decompensation, and increase healthy coping skills. Time Stopped:: 12:10
--- NOTE | 2021-06-08 09:00 | BH.SGPN.GN ---
Behaviors/Verbalizations/Mental Status: [] Eye contact is good. Motor activity is appropriate. Appearance is casual. Speech is Appropriate. Mood is euthymic and anxious. Affect is congruent. Thoughts are linear and logical. No evidence of psychosis. Reviewed daily check in sheet and no reports of suicidal ideations or intent. Client Response/Progress/Benefit: [] Pt was an attentive participant AEB actively listening, providing supportive feedback, as well as willingness to process with group. Client reports emotion for the day as ?relaxed?. Noted she is somewhat anxious about a boundary she needs to set with her old boss as they asked client to return on a PRN basis and client does not feel that will be healthy for her mental health. Discussed that usually she would allow the financial incentive to convince her to take on the extra work despite knowing the consequences. Identified setting a boundary and saying ?no? as progress. Additional wins noted as making more of an effort to practice mindfulness and has found herself more present when spending time with her supports. Benefited from group support, encouragement, and feedback. Will continue in IOP to maintain gains and sobriety, further promote healthy coping behaviors, and prevent decompensation. Narrative Note: []
--- NOTE | 2021-06-08 10:15 | BH.SGPN.GN ---
Behaviors/Verbalizations/Mental Status: []Eye contact is good. Motor activity is appropriate. Appearance is casual. Speech is Appropriate. Mood is stressed. Affect is flat. Thoughts are linear and logical. No evidence of psychosis. Client Response/Progress/Benefit: []Client responded well to session, alert and attentive. Group reviewed components of healthy relationships as well as traits of unhealthy relationships. Group discussed benefits of healthy relationships for one?s mental health such as: validation, increased resilience, perspective, and improved mood. Group also discussed factors that may contribute to people being in unhealthy relationships. Client shared not wanting to be alone can lead to being in unhealthy relationships. Participated in the activity and appeared to benefit from gaining insight on risk factors for unhealthy relationships. Will continue to IOP tx to monitor medication changes, further improve emotional regulation skills, and reduce negative thinking. Narrative Note: []
--- NOTE | 2021-06-08 11:15 | BH.SGPN.GN ---
Behaviors/Verbalizations/Mental Status: [] Eye contact is good. Motor activity is appropriate. Appearance is casual. Speech is Appropriate. Mood is anxious. Affect is congruent. Thoughts are linear and logical. No evidence of psychosis. Client Response/Progress/Benefit: [] Pt was an active participant in group discussion. Provided appropriate feedback and was attentive. Group processed the experiential activity and identified the skills that helped them succeed which included; working together, communication, persistence, trust, thoughtfulness, and being open to guidance. Able to relate how these skills are also important in a healthy relationships. Group processed skills which were unhelpful during activity which included; poor communication and rushed/impulsive decisions. Group identified the impact that unhealthy relationships can have on one's mental wellness which included; increased anxiety, increased depression, lower self-esteem, increased negative thoughts, poor self-care, physical health, indecisiveness, and confusion. Pt was able to identify one thing that she could do to improve her relationships which is stop hiding my emotions. Benefited from group through insight on baron aspects of unhealthy vs healthy relationships as well as identifying what she could do to improve her current relationships. Will continue in IOP to maintain safety, increase healthy coping skills, and stabilize mood. Narrative Note: []
--- NOTE | 2021-06-08 12:26 | PCM.BH.PN_ITS ---
Progress Note Progress Note: History of Present Illness/Interim History: [] The patient is a 31-year-old female with a history of bipolar disorder, ADHD and alcohol use disorder who is seen in follow-up at the [facility] behavioral health IOP program. I last saw the patient 3 weeks ago and at that time she agreed to restart her Abilify and trazodone and prescriptions were sent in for this. 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 She is tolerating the medication well now and feels that her mood is improving and is almost euthymic now. She is been consistently attending the IOP program and has been engaged in treatment. She feels she is really benefiting and learning good skills from the program. The patient has made the decision that she is not going to work a second job anymore despite some financial stress. Other stressors include that the patient's biological mother tried to contact her yesterday and the patient knows her bio mom wants to see the patient's children. The patient does not want her biological mother to see her children as she has a history of substance abuse issues and is planning to keep this a strong boundary. Her sleep is much better on the higher dose of trazodone and she is getting about 7 hours of sleep now. She denies any alcohol use and has not used any marijuana for 1 week now. She drank 10 drinks on May 22, 2021 of alcohol but has not used any alcohol since May 22, 2021. She denies any passive thoughts of , suicidal ideation, homicidal ideation, hallucinations or delusions. Current Psychiatric Medications: [] Abilify 10 mg p.o. nightly (restarted 1 week ago); trazodone 100 mg p.o. nightly (restarted 1 week ago at the higher dose of 100 mg). Mental Status Examination: [] The patient is a 31-year-old female who is seen wearing a mask due to the pandemic and is casually dressed and groomed with good hygiene. She is cooperative during the interview and has no psychomotor agitation or retardation. Speech is normal rate and rhythm and fluent and eye contact is good. Mood is depressed. Affect is full and normal. Thought process is goal-directed and organized. Thought content: There is no evidence of passive thoughts of , suicidal ideation, homicidal ideation, hallucinations, delusions or symptoms of martine. Judgment is intact. Insight is limited but improving. Impulsivity is moderate. Diagnoses: [] 1. Bipolar disorder, not otherwise specified (F 31.9) 2. Generalized anxiety disorder 3. PTSD 4. Alcohol use disorder (in remission for 16 days) 5. Marijuana use disorder (no use for 1 week now) 6. ADHD 7. Primary support, financial and work issues Plan: [] The patient will continue the IOP program at [facility] as the structure, support, education, and group therapy will hopefully prevent worsening of the patient's symptoms which might require hospitalization. She felt safe during the interview and if it anytime she does not feel safe she will let us know or go to the emergency room. The risks, options, possible complications and side effects of the medications were discussed with the patient again and she understands and accepts these. No medication changes were made as she has only restarted her meds for 1 week now. I will see the patient in follow-up in 2 weeks to see how she is doing on her medications. She will continue to follow-up with her outpatient psychiatric and medical providers.
--- NOTE | 2021-06-13 11:41 | BH.COMM ---
Communication Note - Communication with Client Communication Note: Pt called in this AM to cancel IOP. She called back later and reported that she had intermittent issues with hand paralysis this past weekend. No other symptoms of stroke. Communicated this to Dr. Torrez who reached out and spoke with patient directly. Plan is to skip Abilify tonight and then tomorrow night only take 5 mg. She is scheduled to see Dr. Torrez on 06/15/21. If symptoms worsen pt is to go directly to the ER or call 911.
--- NOTE | 2021-06-14 09:00 | BH.SGPN.GN ---
Behaviors/Verbalizations/Mental Status: [] Eye contact is poor. Motor activity is restless. Appearance is causal. Speech is Appropriate. Mood is depressed/irritable. Affect is congruent. Thoughts are linear and logical. No evidence of psychosis. Reviewed daily check in sheet and no reports of suicidal ideations or intent. Client Response/Progress/Benefit: [] Pt participated when prompted. Daily symptom tracker notes 3/5 for irritability and 2/5 for depression. Tearful and restless. States I don't want to share but I need too. Shared that she has felt as if she has regressed in the past 4 days. She did not talk about specifics however reports conflict with support over a misunderstanding. Increased sadness and irritability which led to punching a window. Increased anger outbursts. Last week she was very optimistic and felt she was making progress. Group provided feedback that having a stressor and anger outburst does not mean that she is failing. Group was able to reframe and provide encouragement which was beneficial. Pt was tearful during feedback and asked to leave the room. She came back about 20 minutes later and apologized. Despite the stressors she reports that she continues to utilize skills. Will continue in IOP to maintain safety, increase healthy coping, and stabilize mood. Narrative Note: []
--- NOTE | 2021-06-14 10:08 | BH.SGPN.GN ---
Behaviors/Verbalizations/Mental Status: []Client alert and oriented, casually dressed and groomed. Eye contact good. Motor activity appropriate. Speech within normal limits. Affect constricted, mood euthymic at times and dysthymic at times. Thoughts linear, logical, no signs of hallucinations or delusions. Client Response/Progress/Benefit: []Client responded well to session, attentive and contributing to discussion. Group discussed potential barriers to communication including: yelling, shutting down, passive-aggressive behaviors, and mind-reading. client shared when she has been aggressive, or others have been aggressive it ?gives you a bad rep and impacts trust.? Helped group identified positives of having effective communication skills. Attentive during psychoeducation on the four communication styles. Client reported she most often uses aggressive communication with her . Able to recognize negative outcomes of communication style. Seemed to benefit from increased awareness of the different communication styles and identify personal communication style. Client to continue in IOP tx to promote use of healthy coping skills, improve overall functioning, and promote gains made. Narrative Note: []
--- NOTE | 2021-06-14 12:21 | BH.MDN ---
Multi-Disciplinary Note - Note 60-min Individual Time Started:: 11:05 Date: 06/14/21 Purpose of session/treatment goals addressed:: Reviewed current symptoms and progress in IOP. Addressed recent stressful events which are impacting mental health Eye Contact:: Fair Motor Activity:: Restless Appearance:: Disheveled Mood:: Depressed Affect:: Flat Thoughts:: Linear, Logical, No evidence of hallucinations/delusions noted Staff Interventions:: Utilized OH techniques to elicit change. Challenged cognitive distortions and perspective of situation and attempted to reframe into an opportunity for growth. Education and role-play on effective communication skills. Reviewed 4 week DSM scales Client Response:: Pt reports increased anger, sadness, and anxiety for the past 4 days. Reports increased conflict and arguments with her in the past 4 days over a misunderstanding. Pt reports decreased trust on behalf of her spouse which has negatively impacted their communication. Difficulty managing her emotions specifically anger which resulted in her punching a window which she is upset about. Pt and had agreed not to follow anyone of opposite gender on [employer] and he discovered that pt was following her [id number]. Pt reports that she was unaware of this till it popped up on her phone. She denies any infidelity or reaching out to this man. Due to their history is upset. Pt has insight into why he feels this way however feels that he is not listening to her perspective. This has brought up arguments over past events and spiraled. Depressed, stressed, and anxious yesterday which led to cancelling IOP. Feels like she is regressing and has not made any progress. Despite stressors she has not drank alcohol and continues to utilize skills. Receptive to role-playing effective communication strategies to attempt to discuss issues with . She has plans to talk with him this evening w/o the children around as she wants to continue to work on marriage. Risks/Concerns:: Denies any suicidal or homicidal ideations, plan, or intent. Future-oriented. Progress Toward Goals/Plan:: According to 4 week DSM cross-cutting scales pt has had a 58 % reduction in overall symptoms. Her depression scores have decreased by 71% and her anxiety scores have decreased by 60%. Despite recent regression overall she is benefiting from the program. Increased insight and awareness per pt. Primary challenge and stressor is relationship with spouse however she had reported improvements prior to recent misunderstanding. She arranged to meet with w/o children this afternoon and is motivated to work through recent challenges. She reports that she has also thought about possibly staying over a friends for a few days to distraction and allow some time. Continues to report utilizing skills which we reviewed. Encouraged to utilize self-care and be aware of mood. Despite stressors she has not relapsed on alcohol which is also significant progress. Plan is to continue in IOP to maintain safety, increase healthy coping, and prevent decompensation. Time Stopped:: 11:55
--- NOTE | 2021-06-15 09:33 | BH.MTP_ITS ---
Treatment Plan Review Date of Admission:: 06/16/21 Date of Treatment Plan Review:: 06/15/21 Admitting Diagnoses:: Bipolar disorder, not otherwise specified (F 31.9). Generalized anxiety disorder. PTSD. Alcohol use disorder (in remission for 16 days) Current Diagnoses:: Bipolar disorder, not otherwise specified (F 31.9). Generalized anxiety disorder. PTSD. Alcohol use disorder (in remission for 24 days) Patient's Response to Treatment:: Pt was initially very hesitant about group counseling however after the first week has responded well. Struggles at times with consistently attending however when present is engaged. Reports that she is utilizing skills learned in IOP outside group as well. Provides appropriate feedback. Status of Current Problems and Symptoms: Pt completed her 4 week DSM cross- cutting outcome scales which show an overall symptom reduction of 58% from admission. Her scores on the depression scale reduced by 71% and her anxiety scale showed a 60% reduction. Irritability scores decreased 50%. SI frequency has stayed the same. Last week she reported improved communication and decreased conflict with spouse which has been a primary stressor. She also re- started her medications and noted improved sleep. For the past 4 days pt has reported regression mainly triggered by conflict with her . Increased anger, anxiety, and sadness. Problem #1 Problem Name:: Depression/Anger/Erratic Mood Status of Goals:: Ob1- Per pt report she feels that she has decreased her irritability and anger outbursts, however irritability and unhealthy coping skills continue. Struggles with healthy communication with spouse. Ob2- per pt reports she feels her mood is more stable. Team Recommendations:: Continue to work on emotion regulation as she continues to be reactive. Set up and encourge dual diagnosis treatment. Continue with current treatment plan. Problem #2 Problem Name:: Anxiety Status of Goals:: ob1- She is able to identify calming skills learned in group however struggles with implementing these skills consistently when in overwhelming situations. Can identify triggers as well. Team Recommendations:: continue with current plan
--- NOTE | 2021-06-15 12:17 | PCM.BH.PN ---
Progress Note Progress Note: History of Present Illness/Interim History: [] The patient is a 31-year-old female with a history of bipolar disorder, ADHD and alcohol use disorder who was seen on June 08, 2021 at the [facility] behavioral health IOP program. At that visit the patient restarted her Abilify 10 mg p.o. nightly and had been taking it for 2 weeks at that time. The patient called on Sunday late June 13 and stated that she was having brief hand paralysis last rigidity intermittently the last few days. She also had difficulty saying words intermittently and she felt it might be due to one of her medications. The patient had no other symptoms of stroke or cardiac disease or other. She agreed to skip her Abilify dose on the and then to decrease to 5 mg of Abilify p.o. nightly starting on the next day on June 14. The patient did this and did well and returns to be seen today on June 15, 2021. She is feeling much better now. She denies any other hand rigidity or difficulty saying words or any other side effects from her medications at this time. She saw her primary care doctor and they feel she may have some nerve damage in her right hand which may have been the cause of some of her symptoms but she is not sure. She says her anxiety has increased since she lowered the Abilify dose to 5 mg. Her mood is still somewhat erratic and she still stressed due to conflicts with her at home that she feels are lessening in the last day or so. Her mood is euthymic almost but again anxiety is increasing. She does feel she is benefiting from the program and is learning valuable skills. She has not used any alcohol or other medicine since May 22, 2021. She denies passive thoughts of , suicidal or homicidal ideation, hallucinations, delusions or symptoms of martine. Current Psychiatric Medications: [] Abilify 5 mg p.o. nightly (decreased 2 days ago from 10 mg); trazodone 100 mg p.o. nightly Mental Status Examination: [] The patient is seen wearing a mask due to the pandemic and appears normal for stated age of 31 and is casually dressed and groomed with good hygiene. She has no psychomotor agitation or retardation. She is cooperative and pleasant during the interview. Eye contact is good and speech is normal rate and rhythm and fluent with no pressure. She does have a brace on her right wrist now. Mood is anxious. Affect is full and normal. Thought process is goal-directed and organized. Thought content: There is no evidence of passive thoughts of , suicidal ideation, homicidal ideation, hallucinations, delusions. Judgment is intact. Insight is limited but improving. Impulsivity is moderate. Diagnoses: [] 1. Bipolar disorder, not otherwise specified (F 31.9) #2. Generalized anxiety disorder 3. PTSD 4. Alcohol use disorder (in full remission since May 22, 2021) 5. Marijuana use disorder (no use for over 2 weeks now) 6. ADHD 7. Primary support, financial and work issues. Plan: [] The patient will continue the IOP program at [facility] as the structure, support, education, and group therapy will hopefully prevent worsening of the patient's symptoms which might require hospitalization. She felt safe during the interview and if it anytime she does not feel safe she will let us know or go to the emergency room. The risks, options, possible complications and side effects of medications were cussed with the patient again and she understands and accepts these. No medication changes were made today and the patient agrees to stay on Abilify 5 mg p.o. nightly for 1 week and then increase back up to 10 mg of Abilify p.o. nightly. In addition to aid with her anxiety in the meantime patient was sent in a prescription for gabapentin 300 mg p.o. twice daily. #60 with 0 refills. The patient will see me in follow-up in 2 weeks and will continue to follow-up with her outpatient psychiatric and medical providers.
--- NOTE | 2021-06-17 09:00 | BH.SGPN.GN ---
Behaviors/Verbalizations/Mental Status: []Client alert and oriented, casually dressed and groomed. Eye contact good. Motor activity appropriate. Speech within normal limits. Affect constricted, mood calm and tired. Thoughts linear, logical, no signs of hallucinations or delusions. Reviewed client?s symptom tracker, no risk for suicidal ideation, plan, or intent as of 06/17/21 Client Response/Progress/Benefit: []Client responded well to session, providing supportive statements to peers. Client reports feeling content this morning, but client also feels tired and drunk which client thinks is from her medication. 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 Therapist will share this information with IOP staff. Client stated despite feeling tired, client's mood has overall been better. Client has been talking about boundaries with her children and has been using healthy coping skills more consistently. Appeared to benefit from reflecting on her positives and sharing her medication concerns. Will continue IOP tx to monitor medications and further improve emotional regulation. Narrative Note: []
--- NOTE | 2021-06-17 10:10 | BH.SGPN.GN ---
Behaviors/Verbalizations/Mental Status: [] Eye contact is good. Motor activity is appropriate. Appearance is casual. Speech is Appropriate. Mood is depressed. Affect is flat. Thoughts are linear and logical. No evidence of psychosis. Client Response/Progress/Benefit: [] Pt was an active participant in group discussion and activity. Attentive during psychoeducation. Pt provided insight and feedback during group discussion on how social supports can be similar to a safety net, the importance of social supports, benefits of social supports, and how strong or poor social supports impact our mental health. Worked well with peers in experiential activity and was able to relate activity to group topic. Shared with the group that she struggles with utilizing social support due to fears of trust and being taken advantage of. Benefited from increase awareness of the benefits of social support and the importance of maintain a balanced support system. Will continue in IOP to maintain safety, stabilize mood, increase health coping, and decrease anger outbursts. Narrative Note: []
--- NOTE | 2021-06-17 11:15 | BH.SGPN.GN ---
Behaviors/Verbalizations/Mental Status: []Client alert and oriented, casually dressed and groomed. Eye contact good. Motor activity appropriate. Speech within normal limits. Affect congruent, mood anxious and agitated. Thoughts linear, logical, no signs of hallucinations or delusions. Client Response/Progress/Benefit: []Client was an active participant throughout AEB contributing to discussion and taking notes. Client participated in the group activity highlighting the various barriers to effectively utilizing supports and strategies the group used. Client did well to make connection between frustration impacting communicating needs in the activity with ways our emotions can impede effectively communicating with supports. Participated in discussion of the six types of support (social, spiritual, professional, occupational, and personal) and the group listed examples for all types. Client reports wanting to work on increasing spiritual and personal support as client feels this will help client find some clarity and better understand herself by gaining additional perspective. Client plans to do this by making more of an effort to be present and enjoy the small moments, as well as take steps to sit down and talk to her supports about her mental health needs. Client seemed to benefit from identifying the type of support client wants to improve. Will continue IOP tx to prevent decompensation, continue to promote mood stability, and promote healthy change behaviors. Narrative Note: []
== END 2021-06-18 23:59 ==
LOC: BHIOP 08:28
PROVIDERS: PCP Student in an Organized Health Care Education/Training Program; Referring Provider Psychiatry & Neurology Psychiatry; Visit Provider Psychiatry & Neurology Psychiatry
DX: F31.9 Bipolar disorder, unspecified (principal); F41.1 Generalized anxiety disorder; F43.10 Post-traumatic stress disorder, unspecified; Z72.89 Other problems related to lifestyle; F12.90 Cannabis use, unspecified, uncomplicated; F90.9 Attention-deficit hyperactivity disorder, unspecified type; Z79.899 Other long term (current) drug therapy
CPT/HCPCS: S9480; 90834; 90837; 90853

== ENCOUNTER 2021-06-20 07:48 | Outpatient (RCR) | payer OTHER, MEDICAID, SELFPAY ==
[2021-06-14 15:42] VITALS: BMI 26.5
[2021-06-19 00:35] VITALS: BP 128/78; PULSE 80
--- NOTE | 2021-06-20 09:00 | BH.SGPN.GN ---
Behaviors/Verbalizations/Mental Status: []Eye contact is good. Motor activity is appropriate. Appearance is casual. Speech is Appropriate. Mood is euthymic. Affect is congruent. Thoughts are linear and logical. No evidence of psychosis. Reviewed daily check in sheet and client denies suicidal ideations, plan, or intent. Client Response/Progress/Benefit: []Pt was an attentive participant AEB actively listening, providing supportive feedback, as well as willingness to process with group. Client reports emotion for the day as ?ecstatic? noting this has been a more common emotion as she continues to make progress in making her mental health a priority. Pt did well to identify mental health wins which included getting up early to sit outside and just relax with her without the kids. Noted they were able to actually talk for once which is something they don?t often get to do. Additional win noted as being able to ride in her daughter?s 4-h show over the weekend and was able to agree to do so again this coming weekend. Reflected that she is doing better with making sure to find time to re-engage in activities she enjoys for herself which is significant progress compared to prior to IOP admission. Noted current stressor as cleaning the house before her daughter?s birthday this week and is trying to remind herself to use opposite action and set small goals in order to do so. Benefited from group support, encouragement, and feedback. Will continue in [facility] to further improve mood stability, continue to promote healthy coping behaviors, and prevent decompensation. Narrative Note: []
--- NOTE | 2021-06-20 10:05 | BH.SGPN.GN ---
Behaviors/Verbalizations/Mental Status: []Client alert and oriented, casually dressed and groomed. Eye contact good. Motor activity WNL. Speech within normal limits. Affect congruent, mood anxious and euthymic. Thoughts linear, logical, no signs of hallucinations or delusions. Client Response/Progress/Benefit: []Client responded well to session, attentive and engaged throughout discussion and activity. Agreed with session quote and shared ?if you let fear keep you from things then your dreams will never come true?. The group discussed how mindset and one?s reaction to setbacks determines progress. Client shared fear of rejection has reinforced her fear of failure in the past and led to client regretting not taking the chance in the first place and becoming more negative towards herself. Client appeared to benefit from gaining awareness of the impact fear of failure can have on one?s mental health and wellbeing. Progress noted as client continues gain insight and coping skills which have improved overall mood stability. Will continue IOP to reduce symptoms, combat distortions, and improve daily functioning. Narrative Note: []
--- NOTE | 2021-06-20 11:10 | BH.SGPN.GN ---
Behaviors/Verbalizations/Mental Status: []Client alert and oriented, casually dressed and groomed. Eye contact good. Motor activity restless. Speech within normal limits. Affect constricted, mood agitated and irritable. Thoughts linear, logical, no signs of hallucinations or delusions. Client Response/Progress/Benefit: []Client responded well to session, engaged but reporting near the end of session that she was feeling ?very tingly? and restless. Client completed the fear of failure worksheet and reported that fear of failure has kept client from moving on the ?bigger and better things.? Client able to identify thoughts and behaviors that reinforce personal fear of failure which included: past rejection, racing thoughts, negative self-talk, and lack of compassion. Client attentive during discussion of the different strategies to help overcome fear of failure. Identified wanting to work on using opposite action to overcome fear of failure. Client has made progress with reducing the use of unhealthy coping skills, but she continues to report medication issues. Client will continue IOP tx to promote mood stability and monitor medication changes. Narrative Note: []
--- NOTE | 2021-06-21 09:10 | BH.SGPN.GN ---
Behaviors/Verbalizations/Mental Status: [] Eye contact is good. Motor activity is appropriate. Appearance is casual. Speech is Appropriate. Mood is depressed/irritable. Affect is flat. Thoughts are linear and logical. No evidence of psychosis. Reviewed daily check in sheet and no reports of suicidal ideations or intent. Client Response/Progress/Benefit: [] Pt was an active participant in group discussion. Attentive. Provided appropriate feedback. Emotion for today is frustrated. Shared with the group that she was irritable all day yesterday. States it must have been a bipolar moment as there was no trigger to mood change. Reports feeling restless, angry, and didn't want anything to do with others. Reports that she managed which group noted was a mental health win as she utilized skills and thoght challenging. Reports that its frustrating to not know why I have the emotions that I have. I feel childish. Benefited from group support, encouragment, and feedback. Limited progress noted since last session. Will continue in IOP to prevent decompensation, stablize mood, and increase health coping skills. Narrative Note: []
--- NOTE | 2021-06-21 10:15 | BH.SGPN.GN ---
Client alert and oriented, neatly dressed and groomed. Eye contact good. Motor activity restless. Speech within normal limits. Affect constricted, mood agitated. Thoughts linear, logical, no signs of hallucinations or delusions. Client Response/Progress/Benefit: []Pt was an active participant in group discussion and activity. Insight during activity that personal life experience can impact perspective towards others and increase empathy. Pt along with peers were able to identify what could impact one's perspective which included; mood, intuitions, internal bias, stress, and mental health. Group was able to identify how a negative perspective could hinder mental health progress. Pt reported that prior to IOP, her perspective about herself was highly negative. Pt stated ?my internal judgment impacted me a lot, but I?m really working on it.? Pt shared challenging her perspective has helped her be more present and happier. Benefited from group by increasing awareness on the role of perspective in mental health wellness. Will continue in IOP to further improve mood, reduce negative thinking, and increase use of healthy coping skills. Narrative Note: []
--- NOTE | 2021-06-21 11:18 | BH.SGPN.GN ---
Behaviors/Verbalizations/Mental Status: []Client alert and oriented, casually dressed and groomed. Eye contact good. Motor activity appropriate. Speech within normal limits. Affect congruent, mood dysthymic. Thoughts linear, logical, no signs of hallucinations or delusions. Client Response/Progress/Benefit: []Pt responded well to session AEB pt providing input to session, completing worksheet, and listening attentively to peers. Pt identified personal strengths to include: kindness, independence, forgiveness, and love. Pt shared that these personal strengths could continue to assist in managing her mental health by helping to learn to apply each of these traits to how she treats herself. Noted that she would be able to treat herself in kinder and more empathetic ways which may reduce negative core beliefs and improve her relationship with herself as well. Shared wanting to focus on fostering strengths of forgiveness and kindness by speaking to herself in kinder ways. Identified importance of reminding herself of personal strengths and practicing using them daily in order to further promote self-compassion and improve resilience. Pt to continue IOP to maintain gains, continue to maintain improved mood stability, and prevent decompensation. Narrative Note: []
--- NOTE | 2021-06-22 11:00 | BH.COMM_ITS ---
Communication Note - Communication with Client Communication Note: Cancelled IOP for today. Was scheduled to meet with kayla rodriguez and psychiatrist.
--- NOTE | 2021-06-27 08:28 | BH.COMM ---
Communication Note - Communication with Client Communication Note: called in the AM. States that he children are ill and that they have COVID tests today. Cancelled for this week.
--- NOTE | 2021-07-05 11:30 | BH.MDN_ITS ---
Multi-Disciplinary Note - Note 45-min Individual Time Started:: 09:10 Date: 07/05/21 Purpose of session/treatment goals addressed:: Purpose of session was to assess pt's current symptoms and stressors. Additional focus on establishing aftercare. Eye Contact:: Fair Motor Activity:: Restless Appearance:: Casual Speech:: Appropriate Mood:: Anxious, Dysthymic Affect:: Congruent Thoughts:: Linear, Logical, No evidence of hallucinations/delusions noted Staff Interventions:: Therapist utilized open ended questions to elicit pt's current symptoms and stressors. Processed recent crisis following fight with . Assessed for suicidal lethality. Lethal means counseling, encouraged pt to have pt's secure his pocket knives and anything else that is lethal. Reviewed healthy coping and communication skills. Provided support by using active listening and providing feedback. Client Response:: Pt reports mood has been off in the last week since being sick and being overwhelmed with getting her kids ready for school. Pt stated last night was horrible. Pt shared her was making hurtful comments to her like you don't work enough; you don't do enough; and you're not a parent. Pt stated she was tired of hearing her tell her all the hurtful comments because she stated after hearing this enough I start to believe it's true. Pt reported she went into their bedroom, saw her 's pocket knife on his side table then grabbed the kinfe with intent to stab self in throat. Pt stated her came into the bedroom saw she had the knife in her hand and he tackled her to get the knife out of her hands. Pt reported after her got the knife away from her she left the house and drove around for 2 hours to calm down. pt stated while driving she did not have any suicidal thoughts but at the time I didn't care if anything bad happened to me. Pt reported she does not have any suicidal thoughts today and does not want to . Pt stated she had a couple days in which she had suicidal thoughts last week, denies suicidal intention or plan until her impulsive choice yesterday. Pt reported she recognizes there needs to be continued work on her marriage. pt stated she contributes to the toxicity of the relationship by having poor communication. Pt reported she often will shut down or explode when she is stressed. Pt stated I don't handle stress well. Pt responded well to review of healthy coping skills and effective communication skills. Connected with idea of coming up with a word either pt or can say when they are starting to get escalated which would indicate need to take a pause in the conversation until they are calm. Pt agreed nothing good comes from their conversations when both of them are escalated. Pt reported today she wants to focus on taking time to relax and let self process what happened yesterday. Pt stated she wants to have a conversation with her later today about yesterday. Pt reported on a positive note she has not had a drink of alcohol since starting IOP even when in distress. Risks/Concerns:: Pt made a impulsive suicidal geasture yesterday during a arguement with her . Pt denies current suicidal ideation, plan or intention. Pt states she feels able to keep herself safe at this time. Pt expressed understanding to call 911 or go to the nearest emergency room if she feels unable to keep herself safe. Pt stated she does not have access to any firearms and that her has secured the pocket knives. Pt expressed understanding of reducing access to lethal means. Progress Toward Goals/Plan:: Progress noted with pt reporting continued sobriety even when faced with overwhelming and stressful situations. Pt continues to struggle with emotion regulation which leads to pt making impulsive self- destructive choices in the moment. Pt was planning to discharge this week but given the suicidal gesture last night pt will continue IOP and her treatment will be evaluated next week. Pt is agreeable to this plan. Time Stopped:: 09:50
--- NOTE | 2021-07-06 09:00 | BH.SGPN.GN ---
Behaviors/Verbalizations/Mental Status: []Client alert and oriented, neatly dressed and groomed. Eye contact fair. Motor activity appropriate. Speech within normal limits. Affect constricted-tearful, mood depressed. Thoughts linear, logical, no signs of hallucinations or delusions. Reviewed client?s symptom tracker, client scored 1/5 for thoughts of suicide and 1/5 for risk. Future oriented and is not an imminent threat to self or others. client Response/Progress/Benefit: C[]Client responded well to session, receptive to feedback and support. Client reports feeling frustrated this morning. Client shared the last week has been rough as client and her children were sick and client reports ongoing interpersonal conflict with her . Client reported her mood was significantly impacted and she experienced suicidal ideations earlier this week. Client self-reports that her functioning and mood has improved since. Client's symptom tracker was 1/5 for depression and 2/5 for irritability with 5 being severe. Client demonstrated progress as client did not use alcohol to cope even when client had access to alcohol. Appeared to benefit from connecting with peers and identifying wins. Will continue IOP tx to monitor mood and help client cope through recent stressors. Narrative Note: []
--- NOTE | 2021-07-06 10:15 | BH.SGPN.GN ---
Behaviors/Verbalizations/Mental Status: []Eye contact is good. Motor activity is appropriate. Appearance is casual. Speech is Appropriate. Mood is agitated, dysthymic. Affect is congruent. Thoughts are linear and logical. No evidence of psychosis. Client Response/Progress/Benefit: []Pt was an active participant in group discussion and activity. Attentive during psychoeducation on factors that build resiliency and providing input throughout. Worked with peers to define resilience and shared that resilience ?is allowing yourself to be less rigid and more flexible in order to continue on?. Pt along with peers also identified what could impact personal resilience, which included: environment, learned behaviors and learned coping skills, beliefs, habits, and past experiences. Pt shared an example of babies developing skills to raise their heads as learned resilience. Pt benefited by increasing awareness on the role of resilience in mental health and factors that can help build resiliency. Will continue in IOP to increase impulse control, promote mood stability and healthy coping skill application, and increase healthy support. Narrative Note: []
--- NOTE | 2021-07-06 12:47 | PCM.BH.PN ---
Progress Note Progress Note: History of Present Illness/Interim History: [] The patient is a 31-year-old female who is seen in follow-up at the [facility] behavioral health IOP program. I last saw the patient 3 weeks ago and at that time no medication changes were made. The patient states that she has been a able to increase her gabapentin to 300 mg p.o. twice a day for several weeks now without side effects. She feels that her anxiety is much better on this medication. She is also been back up to 10 mg of Abilify for about 1 month now. The patient complains that she has vivid dreams in the past few weeks that have bothered her somewhat. Some of the dreams she had several months ago also. She describes her mood as pretty good overall except the other day she had an argument with her and she became very upset and grabbed a knife and threatened to kill her self. Her stopped her before she could attempt suicide. She is denies any suicidal ideation since that argument with her . She is frustrated that she resorted to this suicidal gesture. Long discussion was had about options for handling arguments and increase in affect. The patient denies any thoughts of , suicidal or homicidal ideation currently, hallucinations, delusions or symptoms of martine. Patient states that she is sleeping about 8 or 9 hours per night. Current Psychiatric Medications: [] Abilify 10 mg p.o. nightly (x4 weeks now); gabapentin 300 mg p.o. twice daily (x3 weeks at this dose); trazodone 100 mg p.o. nightly Mental Status Examination: [] The patient is a 31-year-old female seen wearing a mask due to the pandemic and casually dressed and groomed with good hygiene. She has no psychomotor agitation or retardation. She is cooperative and pleasant during the interview. Eye contact is good and speech is normal rate and rhythm and fluent with no pressure. Mood is mildly depressed. Affect is full and normal. Thought process is goal-directed and organized. Thought content: There is no evidence of passive thoughts of , suicidal ideation, homicidal ideation, hallucinations or delusions. The patient is frustrated that she gets so upset when she has arguments with her . Judgment is intact. Insight is limited but improving. Impulsivity is moderate to high. Diagnoses: [] 1. Bipolar disorder, NOS (F 31.9) 2. Generalized anxiety disorder 3. PTSD 4. Alcohol use disorder (in full remission x6 weeks now) Plan: [] Patient will continue the IOP program at [facility] as the structure, support, education, and group therapy will hopefully prevent worsening of the patient's symptoms which might require hospitalization. She felt safe during the interview and if it anytime she does not feel safe she will let us know or go to the emergency room. The risks, options, possible complications and side effects of the medications were discussed with the patient again and she understands and accepts these. Discussion was had about using other strategies to deal with frustration and anger than suicidal threats. In addition, the patient agrees to add Lamictal to her current medication regimen. She will take Lamictal 25 mg x 14 days and then increase to 50 mg p.o. daily x14 days. Then we will increase to 100 mg p.o. nightly. Prescription was given for the starter regimen. The patient understands the risk of Richardson-Wong syndrome and the signs to watch out for the rash and understands the importance of starting the Lamictal at a low dose and increasing it slowly to prevent this side effect. I will see the patient in follow-up in 2 weeks or as needed.
--- NOTE | 2021-07-08 09:00 | BH.SGPN.GN ---
Behaviors/Verbalizations/Mental Status: [] Eye contact is good. Motor activity is appropriate. Appearance is casual. Speech is Appropriate. Mood is euthymic. Affect is full. Thoughts are linear and logical. No evidence of psychosis. Reviewed daily check in sheet and no reports of suicidal ideations or intent. Client Response/Progress/Benefit: [] Pt was an active participant in group discussion. Attentive. Provided appropriate feedback. Emotion for today is excited. Daily symptoms tracker notes no significant emotions. Shared that she has had numerous insights this week one of which occurred while see IOP psychiatrist. She discussed how when she is in an argument with her spouse she will often not just gt angry or emotional about the topic but rather several others issues. This could be a reason that she reacts so strongly to events that are seemingly small. Group provided feedback on strategies to be more aware of current emotional states and utilize walking away strategies. Another mental health win was setting boundaries at work which she elaborated in more detail. Progress noted per pt report. Benefited from group support, encouragement, and feedback. Will continue in [facility] to prevent decompensation and maintain safety. Narrative Note: []
--- NOTE | 2021-07-08 11:11 | BH.MDN ---
Multi-Disciplinary Note - Note 30-min Individual Time Started:: 10:25 Date: 07/08/21 Purpose of session/treatment goals addressed:: Reviewed current symptoms and progress in IOP. Addressed progress on treatment plan goals. Discussion on aftercare. Eye Contact:: Good Motor Activity:: Appropriate Appearance:: Casual Speech:: Appropriate Mood:: Euthymic Affect:: Full Thoughts:: Linear, Logical, No evidence of hallucinations/delusions noted Staff Interventions:: motivational interviewing, discharge planning, strengths perspective Client Response:: Pt reports feeling much more stable today. We reviewed her progress in IOP with plan to discharge next Sunday. We reviewed skills and treatment plan. Able to identify 2 conflict resolution skills (walking away and keeping an open mind about the other's perspective). Able to identify her physiological signs to anger (increased anxiety, increased HR, and breathing heavily). Awareness that if she notes these behaviors it is time to implement conflict resolution skills. her 2 coping skills for anxiety include mindfulness skills and reframing thoughts. Triggers to anxiety are mainly feeling powerless or having no control. She has made steps in trying to accept her anxiety and not see it as a failure. Has remained sober for the past 5 weeks. Functioning well at work. Risks/Concerns:: Denies any suicidal ideations, plan, or intent. Progress Toward Goals/Plan:: Progress noted since starting IOP. We kept patient in IOP a week longer due to missing a week due to family illness and suicidal gesture at the beginning of the week. Currently denies any SI, plan, or intent. 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 Has been sober for 5 weeks despite significant stressors. Plan is to discharge next week. She is going to begin aftercare group and is making calls to set up counseling and psychiatry today. Time Stopped:: 11:00
--- NOTE | 2021-07-08 11:12 | BH.SGPN.GN ---
Behaviors/Verbalizations/Mental Status: []Client alert and oriented, casually dressed and groomed. Eye contact good. Motor activity appropriate. Speech within normal limits. Affect congruent, mood dysthymic. Thoughts linear, logical, no signs of hallucinations or delusions. Client Response/Progress/Benefit: []Client responded well to session, contributing to discussion and providing supportive feedback. Client appeared to connect with maintenance cycles and recognized how negative thinking can keep a person stuck. Shared struggling to break negative thinking patterns in the past and that this has resulted in a significant increase in agitation and poor stress tolerance as a result. Client identified a negative thought that has kept her stuck. Client's thought was I?m never going to get where I want to be. Client able to connect how this thought maintains anxiety and depressive cycles and reinforces poor self-esteem, negative self-talk, and agitation. Client reported when she thinks this way, she feels sad and angry and often takes her frustrations out on herself or others. Client worked to reframe the thought by finding more rational, realistic ways to look at the thoughts and then processed within the small group setting. Shared she could instead try saying I can still get there; it may just take some time. Client shared this thought would improve mental health because it would help client feel more determined and willing to keep trying when things get harder. Client appeared to benefit from practicing challenging negative thinking. Will continue IOP tx to maintain gains, further promote healthy change/coping behaviors, and continue to improve thought challenging. Narrative Note: []
--- NOTE | 2021-07-11 09:00 | BH.SGPN.GN ---
Behaviors/Verbalizations/Mental Status: [] Eye contact is good. Motor activity is appropriate. Appearance is neat. Speech is Appropriate. Mood is depressed/irritable. Affect is congruent. Thoughts are linear and logical. No evidence of psychosis. Reviewed daily check in sheet and no reports of suicidal ideations or intent. Client Response/Progress/Benefit: [] Pt participated at times during group discussion. Attentive. Provided appropriate feedback. Daily symptom tracker notes no significant distress. Emotion for today is don't care. She reports being that she worked all weekend and it scheduled to work again today for 4 hours. Shared being tired and exhausted. Did not utilize and skills or self-care this weekend stating that she didn't have time. Reports working and then sleeping. Limited insight that continuing like this will eventually cause burnout. She appears receptive to group feedback on the need for self-care. Short check-in as she does present as irritable this AM. No progress noted. Limited benefit from group this AM. Will continue in IOP to maintain safety and prevent decompensation. Narrative Note: []
--- NOTE | 2021-07-11 10:10 | BH.SGPN.GN ---
Behaviors/Verbalizations/Mental Status: []Client alert and oriented, casually dressed and groomed. Eye contact fair. Motor activity appropriate. Speech within normal limits. Affect constricted, mood dysthymic and irritable. Thoughts linear, logical, no signs of hallucinations or delusions. Client Response/Progress/Benefit: []Client passive participant AEB client providing no input throughout discussion, however did appear to listen attentively to others. Listened as the group brainstormed the positive and negative aspects of stress on physical and mental health. Group did well to identify the benefits of stress as well as the impact of distress on performance and mental health. Client chose not to share current stressors. Client seemed to benefit from increased self-awareness of current stressors and impact stress has on mental health. Recommended to continue IOP tx to improve emotion regulation, stabilize moods and prevent decompensation. Narrative Note: []
--- NOTE | 2021-07-15 09:00 | BH.SGPN.GN ---
Behaviors/Verbalizations/Mental Status: [] Eye contact is good. Motor activity is appropriate. Appearance is neat. Speech is Appropriate. Mood is euthymic. Affect is full. Thoughts are linear and logical. No evidence of psychosis. Reviewed daily check in sheet and no reports of suicidal ideations or intent. Client Response/Progress/Benefit: [] Pt was an active participant in group discussions. Attentive. Daily symptom tracker notes no distress today. Shared that today is her last day in [facility]. Mental health wins from yesterday included going with the flow. Shared several significant stressors which she encountered since last session and believes that she was able to manage these stressors effectively. Completed self-care this AM. Reports that she has her aftercare set up with [facility] for counseling and [facility] for psychiatry. Discussed her progress in [facility] and identified the group on resilience as being very helpful for her. She also believes that learning and incorporating radical acceptance in her life has made a positive impact. Progress noted per pt report. Benefited from group support and encouragment. Plan is to discharge from [facility] today. Narrative Note: []
--- NOTE | 2021-07-15 11:10 | BH.SGPN.GN ---
Behaviors/Verbalizations/Mental Status: []Client alert and oriented, casually dressed and groomed. Eye contact fair. Motor activity appropriate. Speech within normal limits. Affect constricted. Mood dysthymic. Thoughts linear, logical, no signs of hallucinations or delusions. Client Response/Progress/Benefit: []Client engaged during activity and provided ideas on how to cope with internal barriers that keep clients stuck from moving towards goals. Client identified personal barriers to desire reality include: not accepting change, poor boundaries, hopelessness and negative self-talk. Client reported she wants to work on improving boundaries by letting people know she needs to step away from a conversation when getting upset. Benefited from group by identifying obstacles and solutions to desired reality. Pt has made treatment progress and will discharge from [facility] today.
--- NOTE | 2021-07-15 12:52 | BH.DS_ITS ---
Discharge Summary - Demographics Date of Admission:: 05/17/21 Discharge Date: 07/15/21 Presenting Problems at Admission:: Pt is a 31 year old female with hx of Bipolar and ADHD. Previous admission to [facility] in 07/2021 due to suicide attempt via overdose (Tylenol). Referred to [facility] by [facility] social work after recent admission to [facility] program for alcohol detox. Presented to the [facility] ER on 04/16/21 due to alcohol withdrawal and fleeting suicidal thoughts. Hx of alcohol abuse since age 18 however reports increased use 2 weeks prior to admit. Reports drinking 4-5 beers per day. Evaluated for depression and SI while on the medical floor and referred to IOP. Reports being sober since admission on 04/16/21. Currently denies suicidal ideations, plan, or intent. Thoughts are reported to be passive better off ... I want to sometimes. Previous attempt in 07/2021 in which she took herself to the ER after an OD. Primary stressors include finances, work, and marriage. Endorses crying spells, low energy, low motivation, poor sleep, erratic moods, racing thoughts, and isolation. Erratic moods. Isolation. Non-compliant with medications. Family hx of Bipolar, Anxiety, and Depression. Limited support. Linked with [facility] for counseling. Denies HI or psychosis. Discharge Diagnoses:: Bipolar F31.9. Generalized Anxiety Disorder. PTSD. Alcohol Use Disorder (parital remission) Reason for Discharge:: Pt completed treatment plan goals and no longer meets criteria for [facility] level of care. - Treatment Progress During Treatment & Response: Pt's attendance in [facility] was sporadic as she missed a full week due to child illness as well as random days for various reasons. Despite sporadic attendance significant improve was noted. When she was in [facility] she was engaged and attentive. Pt has met treatment plan goals as noted above. DSM outcome measurements show a 81% decrease in overall symptoms since admission. DSM also shows a 71% reduction in scores on depression scale, 75% reduction on score in anger scale, and a 90% reduction on scores on the anxiety scales. Pt self-reports improved mood stability, sobriety from alcohol, improved communication with spouse, and decrease in anxiety. Reports increased awareness and insight on health coping skills. Issues Still to be Addressed:: Would benefit from continued work on communication and conflict resolution skills. Recommended to continue with counseling to work on relapse prevention skills, depression, anxiety, and overall mood management. Discharge Recommendations/Instructions:: Appointment with Cindy Robins for individual counseling at [facility] in 2 weeks. Pt is linked with Dr. Bates at [facility] for medication management. Scheduled to begin aftercare group here at [facility] starting on 07/27/21 Discharge Handout: Complete Discharge Handout with client on aftercare options and continuity of care.
--- NOTE | 2021-07-15 12:53 | BH.IGGP_ITS ---
Aftercare Plan - Demographics Treatment End Date:: 07/15/21 Psychiatrist:: Tracey Acosta Psychiatrist Office #:: [phone] [facility] Therapist:: George Frost Therapist Phone #:: [phone] - Plan Details Progress/Aftercare Plan Details:: Pt's attendance in [facility] was sporadic as she missed a full week due to child illness as well as random days for various reasons. Despite sporadic attendance significant improve was noted. When she was in [facility] she was engaged and attentive. Pt has met treatment plan goals as noted above. DSM outcome measurements show a 81% decrease in overall symptoms since admission. DSM also shows a 71% reduction in scores on depression scale, 75% reduction on score in anger scale, and a 90% reduction on scores on the anxiety scales. Pt self-reports improved mood stability, sobriety from alcohol, improved communication with spouse, and decrease in anxiety. Reports increased awareness and insight on health coping skills. Issues Still to be Addressed:: Would benefit from continued work on communication and conflict resolution skills. Recommended to continue with counseling to work on relapse prevention skills, Strategies for Success:: 1. self-care. 2. Identifying and utilizing conflict resolution skills early. 3. Be vulnerable and honest with support. 4. Remain medication compliant. 5. follow up with counseling. - Appointments Appointments/Referrals to Other Services:: Appointment with Cindy Robins for individual counseling at [facility] in 2 weeks. Pt is linked with Dr. Bates at [facility] for medication management. Scheduled to begin aftercare group here at [facility] starting on 07/27/21 - Medications Home Medications: Home Medications meloxicam 15 tablet PO DAILY PRN #0 tab 04/18/21 aripiprazole [Abilify] 10 mg PO QHS 30 Days #30 tab 05/18/21 trazodone 100 mg PO QHS 30 Days #30 tab 05/18/21 gabapentin 300 mg PO BID 06/15/21 lamotrigine [Lamictal] 25 mg PO QHS 07/06/21
--- NOTE | 2021-07-15 12:55 | BH.MDN ---
Multi-Disciplinary Note - Note 45-min Individual Time Started:: 10:15 Date: 07/15/21 Purpose of session/treatment goals addressed:: Reviewed progress on treatment plan in IOP. Finalized aftercare plans and reviewed outcome measurement. Motor Activity:: Appropriate Appearance:: Neat Speech:: Appropriate Mood:: Euthymic Affect:: Full Thoughts:: Linear, Logical, No evidence of hallucinations/delusions noted Staff Interventions:: discharge planning, strengths perspective, reviewed DSM-5 Client Response:: Reviewed progress in IOP and on treatment plan goals. Pt was able to identify conflict management skills, healthy coping skills for depression, anxiety triggers, and calming skills for anxiety. According to DSM outcome measurement pt showed an overall symptom decrease of 81% since admission. Pt had some significant stressors this week and reports that she was able to utilize conflict resolution skills as well as healthy coping skills. Reports increased awareness of the need for self-care however admits that she does not complete self-care as often as she would like. Has not drank since 05/22/21. Denies any suicidal ideations since last week. Risks/Concerns:: no risks or concerns noted. Progress Toward Goals/Plan:: Progress noted. Pt has met treatment plan goals as noted above. DSM outcome measurements show a 81% decrease in overall symptoms since admission. DSM also shows a 71% reduction in scores on depression scale, 75% reduction on score in anger scale, and a 90% reduction on scores on the anxiety scales. Pt self-reports improved mood stability, sobriety from alcohol, improved communication with spouse, and decrease in anxiety. Reports increased awareness and insight on health coping skills. Plan is to discharge as pt no longer meets criteria for [facility] level of care. Time Stopped:: 10:55
== END 2021-07-15 13:05 | disposition home or self-care (01) ==
LOC: BHIOP 07:48
PROVIDERS: PCP Student in an Organized Health Care Education/Training Program; Referring Provider Psychiatry & Neurology Psychiatry; Visit Provider Psychiatry & Neurology Psychiatry
DX: F31.9 Bipolar disorder, unspecified (principal); F41.1 Generalized anxiety disorder; F43.10 Post-traumatic stress disorder, unspecified; Z72.89 Other problems related to lifestyle; Z79.899 Other long term (current) drug therapy
CPT/HCPCS: S9480; 90832; 90834; 90853

== ENCOUNTER 2021-07-01 07:44 | Outpatient (RCR) | payer OTHER, MEDICAID, SELFPAY ==
[2021-06-14 15:42] VITALS: BMI 26.5
== END 2021-07-19 23:59 ==
LOC: LABSPEC 07:44
PROVIDERS: PCP Student in an Organized Health Care Education/Training Program; Referring Provider Family Medicine Geriatric Medicine; Visit Provider Family Medicine Geriatric Medicine
DX: Z03.818 Encounter for observation for suspected exposure to other biological agents ruled out (principal)
CPT/HCPCS: 87426

== ENCOUNTER 2021-07-22 08:11 | Outpatient (RCR) | payer OTHER, MEDICAID, SELFPAY ==
--- NOTE | 2021-07-21 14:00 | BH.SGPN.GN ---
Behaviors/Verbalizations/Mental Status: []Client alert and oriented, casually dressed and groomed. Eye contact good. Motor activity appropriate. Speech within normal limits. Affect constricted, mood irritable. Thoughts linear, logical, no signs of hallucinations or delusions. Client Response/Progress/Benefit: Pt reported work has been getting very busy which is stressful. Pt reported additional stressor as having a argument with her father about her daughter's upcoming birthday green party. Pt stated she was unable to regulate her emotions and did say some hurtful things to him. Pt stated identified mental health positive as managing emotions while at work. Pt engaged in discussion about healthy decision making. Pt stated wanting to work on making healthy decisions with relationships and money. Pt reported she will focus on communicating more openly with her . Pt stated to improve financial situation she is going to create a budget. Pt seemed to benefit from identifying healthy choices she can make to improve two areas in her life. pt to continue aftercare to maintain gains and prevent decompensation. Narrative Note: []
--- NOTE | 2021-07-22 10:53 | BH.MTP ---
Master Treatment Plan - Patient Information Program Physician:: Dr. Tracey Acosta Primary Therapist:: George Frost - Psychiatric Diagnoses Psychiatric Diagnoses:: Bipolar F31.9. Generalized Anxiety Disorder. PTSD. Alcohol Use Disorder (parital remission) Diagnosis Code(s):: F 31.9 - Estimated LOS Estimated LOS (in weeks):: 12 Problem/Goal #1 - Problem/Goal #1 Stated Goal:: Client will maintain or see a reduction in symptoms AEB client score on the DSM 5 cross-cutting measure and improve client's daily functioning. - Objectives Objective #1 Stated Objective: Client will continue to consistently apply healthy coping skills to maintain progress made in IOP tx. Interventions: Through group therapy, client will review warning signs and triggers as well as healthy coping skills learned in IOP tx to successfully maintain gains while transitioning into outpatient therapy. Discharge Criteria: Client will have accomplished this goal when client's score on the DSM-5 cross-cutting measure has either maintained or reduced over a 12 week period. Target Date: 10/13/21 Review Date: 08/18/21 Status: open Objective #2 Stated Objective: Client will learn and utilize 2-3 maintenance strategies to prevent decompensation. Interventions: Through group therapy, client will be provided with education on healthy maintenance behaviors, relapse prevention techniques, and healthy coping strategies. Discharge Criteria: Client will have accomplished this goal when can report using at least 2 maintenance skills to prevent decompensation. Target Date: 10/13/21 Review Date: 08/18/21 Status: open
--- NOTE | 2021-08-11 14:00 | BH.SGPN.GN ---
Behaviors/Verbalizations/Mental Status: []Client alert and oriented, casually dressed. Eye contact fair. Motor activity appropriate. Speech within normal limits. Affect flat, mood apathetic. Thoughts linear, logical, no signs of hallucinations or delusions. Client Response/Progress/Benefit: []Pt responded well to session AEB pt providing input during discussion and listening attentively to peers. Pt reported feeling overwhelmed and burnout today. 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 Pt stated one positive is that she has not drank to cope which has been hard because ?everyone talks about going home and drinking at work.? Pt received emotional support from the group. Pt engaged in discussion about self-love. Connected with others that although self-care is challenging, it is vital for mental health wellness. Group discussed barriers they have faced that prevented self-love. Pt reviewed the 30 ways to improve self-love and selected two strategies to practice. Pt seemed to benefit from reviewing treatment progress and stressors as well as learning about how to increase self-love. Pt will continue IOP aftercare to reinforce healthy coping skills and prevent decompensation due to burnout. Narrative Note: []
--- NOTE | 2021-08-11 16:57 | BH.DS_ITS ---
Discharge Summary - Demographics Date of Admission:: 07/21/21 Discharge Date: 08/11/21 Presenting Problems at Admission:: Client discharged from IOP tx and transitioned to IOP aftercare to maintain gains client made in IOP, further improve mood stability, and to reinforce healthy coping skills to manage anger, depression, and sobriety. At admission to IOP aftercare, client was continuing to experience work, martial, and family stressors that were impacting her overal l mental health. Discharge Diagnoses:: Bipolar F31.9. Generalized Anxiety Disorder. PTSD. Alcohol Use Disorder (parital remission) Reason for Discharge:: Client voluntarily discharged from IOP aftercare due to work schedule conflicts. Client will transition to traditional outpatient counseling - Treatment Progress During Treatment & Response: Client voluntarily discharged from IOP aftercare before completing her goals. Client was reporting worsening depression and feeling burnout while in aftercare due to increased work stress. Client was attentive while in group sessions, however, client self-reported lack of self- care and coping skill application outside of the treatment setting. Additionally, client did not follow up with establishing outpatient mental health providers which could lead to decompensation in the future. Issues Still to be Addressed:: Would benefit from continued work on communication and conflict resolution skills. Recommended to continue with counseling to work on relapse prevention skills, depression, anxiety, and overall mood management. Discharge Recommendations/Instructions:: Prior to IOP discharge Client was to follow up with Dr. Bates at [facility] for medication management and Cindy Robins at [facility] for individual counseling. Per client report, she has not followed up with those providers. Discharge Handout: Complete Discharge Handout with client on aftercare options and continuity of care.
== END 2021-08-18 23:59 ==
LOC: BHOG 08:11
PROVIDERS: PCP Student in an Organized Health Care Education/Training Program; Visit Provider Psychiatry & Neurology Psychiatry
DX: F31.9 Bipolar disorder, unspecified (principal); F41.1 Generalized anxiety disorder; F43.10 Post-traumatic stress disorder, unspecified; Z72.89 Other problems related to lifestyle
CPT/HCPCS: 90853

== ENCOUNTER 2021-11-18 10:21 | Emergency (ER) | payer OTHER, MEDICAID, SELFPAY ==
[2021-11-18 10:22] VITALS: BP 122/86; PULSE 81; RESP 16; TEMP 36.6; O2SAT 98; BMI 28.8
--- NOTE | 2021-11-18 11:10 | EX.ED.DYSGE1 ---
HPI History of Present Illness Chief Complaint: Dizziness Detail of Chief Complaint: Vomiting and feeling lightheaded Informant: patient Narrative Narrative: Patient the emergency department after an episode of vomiting. Patient states that she was working upstairs when she had sudden onset of a sour stomach and feeling like she needed to vomit. Patient left the patient room and vomited and immediately started feeling lightheaded and dizzy. Patient then developed a headache. She denies any abdominal pain. She denies any diarrhea. She denies other recent illness although she recently took care of her grandmother who had Covid. Patient has been fully vaccinated. She has a slight cough but she is not sure if it's her smoker's cough or anything more significant. She denies body aches. She denies sore throat. Patient denies urinary symptoms. Prior similar symptoms: No PFSH PFSH Medical History (Updated 11/18/21 @ 13:[address] Gem Maldonado, DO) ADHD Alcohol abuse Alcohol use disorder, mild, in early remission Anemia Anxiety and depression ASCUS with positive high risk HPV Bipolar disorder, unspecified Generalized anxiety disorder Genital herpes History of meningitis History of multiple pulmonary nodules Palpitations PTSD (post-traumatic stress disorder) Tobacco use Varicosities of leg Home Medications meloxicam 15 tablet PO DAILY PRN #0 tab 04/18/21 [Rx Last Taken 04/15/21 07:00] aripiprazole [Abilify] 10 mg PO QHS 30 Days #30 tab 05/18/21 [Rx Last Taken Unknown] trazodone 100 mg PO QHS 30 Days #30 tab 05/18/21 [Rx Last Taken Unknown] gabapentin 300 mg PO BID 06/15/21 [History Last Taken Unknown] lamotrigine [Lamictal] 25 mg PO QHS 07/06/21 [History Last Taken Unknown] ondansetron 4 mg PO Q8H PRN PRN #10 tab 11/18/21 [Rx Last Taken Unknown] Allergy/AdvReac Type Severity Reaction Status Date / Time azithromycin [From Zithromax] Allergy Rash Verified 11/18/21 10:24 red dye AdvReac Vomiting Verified 11/18/21 10:24 Family History Mother Anxiety and depression Bipolar disorder Polysubstance abuse Other Arthritis Cancer Heart disease Myocardial infarction Surgical History History of arthroscopic knee surgery History of tubal ligation History of varicose vein stripping Social History household members: spouse and family Smoking Status: Current every day smoker tobacco type: cigarettes and cigars quit status: has quit before alcohol intake: current alcohol intake frequency: 3 or more drinks per day Alcohol type: beer details: 4-6, 12 ounce beers daily since age 18. substance use type: marijuana caffeine: Yes Type: carbonated beverages Number of servings: 2, coffee and tea what type of physical activity do you participate in: none ROS ROS ED ROS Narrative Dizziness Constitutional Constitutional ED: Reports systems reviewed and no addt'l complaints, except as documented; Denies body ache(s), change in weight or chills Eyes Eyes: Denies acute decrease in peripheral vision, change in vision, double vision or loss of vision ENT ENT ED: Reports none; Denies ear pain, lip swelling, loss taste/smell, neck pain, otalgia or sore throat Cardiovascular Cardiovascular: Reports none; Denies abdominal pain, chest pain with activity, leg edema, lightheadedness, palpitations, rapid heart rate or syncope Respiratory/Chest Respiratory/Chest: Reports none; Denies change in mental status, dry cough, dyspnea, hemoptysis, shortness of breath at rest or shortness of breath with exertion Gastrointestinal Gastrointestinal: Reports none, nausea and vomiting; Denies abdominal pain, change in stool character, diarrhea, hematemesis, hematochezia, melena or rectal bleeding Genitourinary Genitourinary ED: Reports none; Denies abdominal discomfort, anuria, dysuria, genital pain or polyuria Musculoskeletal Musculoskeletal: Reports none; Denies arthralgias, back pain, difficulty walking, extremity pain, muscle weakness or myalgias Integumentary Reports none; Denies abscess or rash Neurologic Neurologic: Reports none and headache(s); Denies abnormal gait, confusion, focal weakness, frequent falls, loss of vision, numbness, paresthesias, radicular pain, vertigo or weakness Psychiatric Psychiatric: Reports systems reviewed and no addt'l complaints, except as documented and none; Denies behavioral changes, confusion, difficulty concentrating, hallucinations, suicidal ideation, tactile hallucinations or visual hallucinations Endocrine Endocrinology: Denies none, cold intolerance, excessive sweating, fatigue or heat intolerance Hematologic/Lymphatic Hematologic/Lymphatic: Reports none; Denies anemia, easy bleeding or easy bruising Allergic/Immunologic Allergic/Immunologic ED: Denies as per HPI, none, lip swelling, mouth swelling, throat swelling, tongue swelling or hives EXAM Physical Exam Const Vital Signs: 11/18/21 10:22 11/18/21 10:59 11/18/21 12:21 Temperature 97.8 F Temperature Source Temporal Pulse Rate 81 Respiratory Rate 16 16 Respiratory Effort Normal Non-Labored Blood Pressure 122/86 H Blood Pressure Mean 98 Pulse Ox 98 Oxygen Delivery Method Room Air Positive well nourished and well developed General Appearance ED: well developed and NAD HEENT Reports TM's clear and moist mucous membranes normocephalic and atraumatic; Negative for trauma or tenderness Tympanic Membrane ED: Yes TM's clear Eyes PERRL and EOMs intact bilaterally General Eye ED: Negative for pale conjunctiva or scleral icterus Neck no lymphadenopathy, supple and no JVD General: Negative for tenderness Chest Wall inspection of chest normal and palpation of chest normal Chest: Negative for tenderness Resp normal respiratory effort and clear to auscultation bilaterally Effort and Inspection: Negative for respiratory distress or pain with movement Auscultation: Negative for rhonchi, wheezes or diminished lung sounds Cardio regular rate, regular rhythm, S1 normal heart sound, S2 normal heart sound and no murmurs Peripheral Pulses: pulses 2+ throughout GI normal to inspection, nondistended, normoactive bowel sounds, soft to palpation, non-tender, non-distended and no masses Back/Spine no CVA tenderness and no thoracic nor lumbar tenderness Extremity normal to inspection General Extremety ED: Negative for edema General Extremity: Negative for edema Neuro oriented x3, CN's II-XII intact bilaterally, no sensory deficits noted and gait normal Sensorium / Orientation: awake, alert, oriented to person, oriented to place and oriented to time Motor Exam: strength 5/5 throughout and strength abnormal Psych mental status grossly normal Skin no rashes or lesions noted and no wounds MDM MDM MDM Narrative Medical decision making narrative: IV line established on arrival. Patient was given Toradol and Zofran and she did feel improved. She had no further vomiting. Lab work-up was unremarkable. COVID-19 testing was negative. At this point I suspect possibly a viral etiology for her symptom onset. She wanted to know she could go back to work or if she should take day off. I felt that she would be best served if she just took the rest of the time to rest and hydrate. I will send her home with a prescription for Zofran. Patient use ibuprofen or Tylenol for discomfort. Lab Data Attestation: I reviewed the patient's lab results. Labs: Laboratory Results - last 24 hr 11/18/21 11/18/21 11/18/21 11:25 11:25 11:25 WBC 9.7 RBC 4.73 Hgb 13.5 Hct 40.1 MCV 84.8 MCH 28.5 MCHC 33.7 RDW Std Deviation 39.8 RDW Coeff of [place] 12.9 Plt Count 242 MPV 9.4 Immature Gran % (Auto) 0.200 Neut % (Auto) 68.2 Lymph % (Auto) 21.2 [place] % (Auto) 7.6 Eos % (Auto) 2.3 Baso % (Auto) 0.5 Absolute Neuts (auto) 6.6 Absolute Lymphs (auto) 2.06 Nucleated RBC % 0 Reactive Lymphocytes RARE Platelet Estimate ADEQUATE Sodium 141 Potassium 3.8 Chloride 109 H Carbon Dioxide 27.0 Anion Gap 5 BUN 8 Creatinine 0.91 Estim Creat Clear Calc 94.47 Est GFR (MDRD) Af Amer 93 Est GFR (MDRD) Non-Af 77 BUN/Creatinine Ratio 8.8 L Glucose 91 Calcium 8.8 Total Bilirubin 0.40 AST 17 ALT 21 Alkaline Phosphatase 42 L Total Protein 7.3 Albumin 3.4 Globulin 3.9 Albumin/Globulin Ratio 0.9 Serum , Qual NEGATIVE Urine Color Urine Clarity Urine pH Ur Specific [place] Urine Protein Urine Glucose (UA) Urine Ketones Urine Occult Blood Urine Nitrite Urine Bilirubin Urine Urobilinogen Ur Leukocyte Esterase Urine RBC Urine WBC Ur Squamous Epith Cells Urine Bacteria Urine Mucus 11/18/21 12:41 WBC RBC Hgb Hct MCV MCH MCHC RDW Std Deviation RDW Coeff of [place] Plt Count MPV Immature Gran % (Auto) Neut % (Auto) Lymph % (Auto) [place] % (Auto) Eos % (Auto) Baso % (Auto) Absolute Neuts (auto) Absolute Lymphs (auto) Nucleated RBC % Reactive Lymphocytes Platelet Estimate Sodium Potassium Chloride Carbon Dioxide Anion Gap BUN Creatinine Estim Creat Clear Calc Est GFR (MDRD) Af Amer Est GFR (MDRD) Non-Af BUN/Creatinine Ratio Glucose Calcium Total Bilirubin AST ALT Alkaline Phosphatase Total Protein Albumin Globulin Albumin/Globulin Ratio Serum , Qual Urine Color Yellow Urine Clarity Cloudy Urine pH 6.0 Ur Specific [place] 1.020 Urine Protein 30 H Urine Glucose (UA) Normal Urine Ketones 5 H Urine Occult Blood 250 H Urine Nitrite Negative Urine Bilirubin Negative Urine Urobilinogen Normal Ur Leukocyte Esterase 25 H Urine RBC 50-100 SEEN Urine WBC 0-5 SEEN Ur Squamous Epith Cells 0-5 SEEN Urine Bacteria 1+ Urine Mucus 0 SEEN Discharge Plan Triage Chief Complaint: Dizziness ED Provider: Gem Maldonado Dx/Rx/DC Orders Clinical Impression: Vomiting, Cephalalgia Instructions: Self-Care for Headaches, ED Vomiting (Adult) Prescriptions: New ondansetron [ondansetron] 4 MG tablet 4 mg PO Q8H PRN PRN (Reason: Nausea) Qty: 10 RF: 0 No Action meloxicam 15 mg tablet 15 tablet PO DAILY PRN (Reason: Pain.) Qty: 0 RF: 0 aripiprazole [Abilify] 10 mg tablet 10 mg PO QHS 30 Days Qty: 30 RF: 1 trazodone 100 mg tablet 100 mg PO QHS 30 Days Qty: 30 RF: 1 gabapentin 300 mg Capsule 300 mg PO BID RF: 0 lamotrigine [Lamictal] 25 mg Tablet 25 mg PO QHS RF: 0 Primary Care Provider: Rober Saba Referrals: Rober Saba DO [Primary Care Provider] - 3-5 Days Disposition Disposition: Home, Self Care
[2021-11-18 11:39] LABS: Absolute Lymphocyte Count 2.06 X10^3/uL (0.83-4.51); Absolute Neutrophil Count 6.6 X10^3/uL (2.0-7.7); Basophil# 0.05 X10^3/uL; Basophil% 0.5 % (0-1); Eosinophil# 0.22 X10^3/uL; Eosinophils% 2.3 % (0-5); Hematocrit 40.1 % (37-47); Hemoglobin 13.5 g/dL (12.0-15.0); Lymphocyte # 2.06 X10^3/ul (0.83-4.51); Lymphocyte % 21.2 % (19-41); Mean Corp Hgb Conc 33.7 g/dL (32-36); Mean Corpuscular Hgb 28.5 pg (27.0-32.0); Mean Corpuscular Volume 84.8 fL (81-99); Mean Platelet Vol. 9.4 fl (6.2-12.0); Monocyte# 0.74 X10^3/uL; Monocyte% 7.6 % (0-10); NRBC Flagged by Analyzer 0 % (0-5); Neutrophil # 6.62 X10^3/uL (2.7-7.7); Neutrophil % 68.2 % (47-70); POSITIVE MORPHOLOGY YES; Platelet Count 242 K/mm3 (150-450); RBC Distribution Width CV 12.9 % (11.6-14.6); RBC Distribution Width SD 39.8 fl (35.1-43.9); Red Blood Count 4.73 M/mm3 (4.2-5.4); White Blood Count 9.7 K/mm3 (4.4-11.0)
[2021-11-18 11:42] LABS: Differential Indicated SCAN CRITERIA MET
[2021-11-18] MEDS: Ketorolac 15 MG/ML Vial IV (11:43)
[2021-11-18] MEDS: Ondansetron 4 MG/2 ML Vial IV (11:43)
[2021-11-18] MEDS: 0.9% Normal Saline 1,000 ML 1000 ML IV (11:43)
[2021-11-18 11:54] LABS: ALB/GLOB Ratio 0.9 RATIO (0.9-2.4); AST(SGOT) 17 U/L (15-37); Alanine Aminotransfer ALT/SGPT 21 U/L (13-56); Albumin, Serum 3.4 g/dL (3.2-5.0); Alkaline Phosphatase 42 U/L (45-117); Anion Gap 5 (5-15); BUN 8 mg/dL (7-18); BUN/Creat Ratio 8.8 RATIO (10-20); Calcium,Total 8.8 mg/dL (8.5-10.1); Chloride 109 mmol/L (98-107); Creatinine, Serum 0.91 mg/dL (0.55-1.02); EST Glomerular Filtration Rate 77 mL/min (>60); Est Glom Filt Rate - Afr Amer 93 mL/min (>60); Estimated Creatinine Clearance 94.47 ml/min; Globulin 3.9 g/dL (2.2-4.2); Glucose 91 mg/dL (74-106); Potassium 3.8 mmol/L (3.5-5.1); Protein, Total 7.3 g/dL (6.4-8.2); Sodium Level 141 mmol/L (136-145)
[2021-11-18 12:00] LABS: Platelet Estimate ADEQUATE (ADEQ); Reactive Lymphocyte RARE
[2021-11-18 12:08] LABS: Internal QC Validated? YES +Cl - CLEAR BKGD; Pregnancy, Serum, hCG Quali. NEGATIVE Negative
[2021-11-18 12:21] VITALS: RESP 16
[2021-11-18 12:44] LABS: Mucous, Urine 0 SEEN /hpf (<or=2+)
[2021-11-18 12:50] LABS: Color, Urine Yellow (Yellow); Glucose, Dipstick Normal (Normal); Ketone-Dipstick 5 mg/dl (Negative); Leukocyte Esterase-Dipstick 25 /ul (Negative); Nitrite-Dipstick Negative (Negative); Occult Blood-Urine 250 /ul (Negative); Protein-Dipstick 30 mg/dl (Negative); Urine Bilirubin Dipstick Negative (Negative); Urine Clarity Cloudy (Clear); Urine Urobilinogen Normal (Normal)
[2021-11-18 13:02] LABS: Bacteria 1+ /hpf (None Seen); Red Blood Cells-Urine 50-100 SEEN /hpf (0-5); Squamous Epithelial Cells - UA 0-5 SEEN /hpf (5-10); White Blood Cells 0-5 SEEN /hpf (0-5)
== END 2021-11-18 13:48 | disposition home or self-care (01) ==
PROVIDERS: Emergency Provider Emergency Medicine; PCP Student in an Organized Health Care Education/Training Program
DX: R11.10 Vomiting, unspecified (principal); R51.9 Headache, unspecified; R42 Dizziness and giddiness; F90.9 Attention-deficit hyperactivity disorder, unspecified type; F31.9 Bipolar disorder, unspecified; F41.1 Generalized anxiety disorder; F43.10 Post-traumatic stress disorder, unspecified; F17.210 Nicotine dependence, cigarettes, uncomplicated; F10.11 Alcohol abuse, in remission; F17.290 Nicotine dependence, other tobacco product, uncomplicated; Z79.899 Other long term (current) drug therapy
CPT/HCPCS: 80053; 81001; 84703; 85025; 87426; 96361; 96374; 96375; 99283; J7030; A4216; J2405

== ENCOUNTER 2022-03-18 17:48 | Emergency (ER) | payer OTHER, MEDICAID, SELFPAY ==
[2022-03-18 17:49] VITALS: BP 116/85; PULSE 78; RESP 16; TEMP 36.6; O2SAT 98; BMI 27.9
--- NOTE | 2022-03-18 18:20 | EDS_ITS ---
HPI History of Present Illness Chief Complaint: General Illness Informant: patient Narrative Narrative: Patient states that she is just done with this. She started about 2 weeks ago with some myalgias and nasal congestion and a dry cough. The next day she seemed better. The day after that she was getting symptoms back. She was seen in urgent care. Patient had had COVID test that was negative. She had influenza that was negative. They treated her with Au gmentin twice a day because they thought maybe she could have a sinus infection. She has some clear nasal drainage. She has cough with bringing up clear sputum on occasion. No blood. After starting the amoxicillin clavulanic acid she has had nausea vomiting and diarrhea. Diarrhea is mild. If she eats the nausea and vomiting gets worse. But she is able to get some fluids and food in. No domingo hes. No urinary symptoms. She states that she is on no regular medications at all. However her prior med list lists Abilify, gabapentin, Lamictal, trazodone, meloxicam. [facility] Medical History ADHD Alcohol abuse Alcohol use disorder, mild, in early remission Anemia Anxiety and depression ASCUS with positive high risk HPV Bipolar disorder, unspecified Generalized anxiety disorder Genital herpes History of meningitis History of multiple pulmonary nodules Palpitations PTSD (post-traumatic stress disorder) Tobacco use Varicosities of leg Home Medications meloxicam 15 tablet PO DAILY PRN #0 tab 04/18/21 [Rx Last Taken 04/15/21 07:00] aripiprazole [Abilify] 10 mg PO QHS 30 Days #30 tab 05/18/21 [Rx Last Taken Unknown] trazodone 100 mg PO QHS 30 Days #30 tab 05/18/21 [Rx Last Taken Unknown] gabapentin 300 mg PO BID 06/15/21 [History Last Taken Unknown] lamotrigine [Lamictal] 25 mg PO QHS 07/06/21 [History Last Taken Unknown] ondansetron 4 mg PO Q8H PRN PRN #10 tab 11/18/21 [Rx Last Taken Unknown] amoxicillin 875 mg-potassium clavulanate 125 mg tablet 1 tab PO Q12H 10 Days #20 tab 03/10/22 [Rx Last Taken Unknown] ondansetron 4 mg PO Q8H PRN #10 tab 03/18/22 [Rx Last Taken Unknown] Allergy/AdvReac Type Severity Reaction Status Date / Time azithromycin [From Zithromax] Allergy Rash Verified 03/18/22 17:49 red dye AdvReac Vomiting Verified 03/18/22 17:49 Family History Mother Anxiety and depression Bipolar disorder Polysubstance abuse Other Arthritis Cancer Heart disease Myocardial infarction Surgical History History of arthroscopic knee surgery History of tubal ligation History of varicose vein stripping Social History household members: spouse and family Smoking Status: Current every day smoker tobacco type: cigarettes and cigars quit status: has quit before alcohol intake: current alcohol intake frequency: 3 or more drinks per day Alcohol type: beer details: 4-6, 12 ounce beers daily since age 18. substance use type: marijuana caffeine: Yes Type: carbonated beverages Number of servings: 2, coffee and tea what type of physical activity do you participate in: none ROS ROS ED Constitutional Constitutional ED: Reports weight loss; Denies fever(s) Eyes Eyes: Denies blurry vision or change in vision ENT ENT ED: Reports rhinorrhea and other Details: Mild nasal congestion and drainage. ; Denies ear pain or sore throat Cardiovascular Cardiovascular: Denies chest pain or palpitations Respiratory/Chest Respiratory/Chest: Reports cough and dyspnea; Denies sputum Gastrointestinal Gastrointestinal: Reports diarrhea, nausea and vomiting; Denies abdominal pain, constipation or melena Genitourinary Genitourinary ED: Denies dysuria, hematuria or urinary frequency Musculoskeletal Musculoskeletal: Reports other Details: Patient had myalgias initially but these are better ; Denies myalgias Integumentary Denies rash Neurologic Neurologic: Denies headache(s) Endocrine Endocrinology: Denies polydipsia or polyuria Allergic/Immunologic Allergic/Immunologic ED: Denies urticaria EXAM Physical Exam Const Vital Signs: 03/18/22 17:49 03/18/22 18:22 03/18/22 19:35 Temperature 97.8 F Temperature Source Temporal Pulse Rate 78 Respiratory Rate 16 14 Respiratory Pattern Normal Blood Pressure 116/85 H Blood Pressure Mean 95 Pulse Ox 98 Oxygen Delivery Method Room Air Positive well nourished and well developed General Appearance ED: well developed and NAD HEENT Reports moist mucous membranes HEENT Narrative: No sinus tenderness. Mild nasal discharge but it is clear. Oropharynx is normal. Eyes PERRL and EOMs intact bilaterally Neck no lymphadenopathy and no JVD Resp normal respiratory effort and clear to auscultation bilaterally Effort and Inspection: Negative for pain with movement Auscultation: Negative for rales, rhonchi or wheezes Cardio regular rate and regular rhythm GI normal to inspection, nondistended, normoactive bowel sounds and non-tender Palpation: soft Back/Spine no CVA tenderness Extremity General Extremety ED: Negative for edema or tenderness General Extremity: Negative for edema Neuro Sensorium / Orientation: alert Psych mental status grossly normal Skin no rashes or lesions noted MDM MDM MDM Narrative Medical decision making narrative: Patient's labs are overall unremarkable. Mi nimal low potassium that should self correct. is negative. Chest x- ray is negative. She is better with meds and fluids. We we will send her home with Wilian. She has already stopped her Augmentin which I think is likely the source of her symptoms. She has mild congestion but her biggest issue is her nausea vomiting and diarrhea. Lab Data Attestation: I reviewed the patient's lab results. Labs: Laboratory Results - last 24 hr 03/18/22 03/18/22 18:35 18:35 Sodium 140 Potassium 3.3 L Chloride 108 H Carbon Dioxide 28.0 Anion Gap 4 L BUN 8 Creatinine 0.84 Estim Creat Clear Calc 102.34 Est GFR (MDRD) Af Amer 102 Est GFR (MDRD) Non-Af 85 BUN/Creatinine Ratio 9.6 L Glucose 107 H Calcium 8.5 Serum , Qual NEGATIVE Radiography Diagnostic Testing: Clinical Impression(s) from Imaging Studies Chest X-Ray 03/18/22 18:25 IMPRESSION: No acute cardiopulmonary process. Electronically Signed: Dash Holly MD at 18:54 EDT , Discharge Plan Triage Chief Complaint: General Illness ED Provider: Gerardo Miles Dx/Rx/DC Orders Clinical Impression: Nasal congestion, Nausea, vomiting and diarrhea Instructions: ED Vomiting and Diarrhea ... Prescriptions: New ondansetron 4 mg tablet,disintegrating 4 mg PO Q8H PRN (Reason: nausea and vomiting) Qty: 10 RF: 0 No Action amoxicillin-pot clavulanate 875-125 mg tablet 1 tab PO Q12H 10 Days Qty: 20 RF: 0 meloxicam 15 mg tablet 15 tablet PO DAILY PRN (Reason: Pain.) Qty: 0 RF: 0 aripiprazole [Abilify] 10 mg tablet 10 mg PO QHS 30 Days Qty: 30 RF: 1 trazodone 100 mg tablet 100 mg PO QHS 30 Days Qty: 30 RF: 1 gabapentin 300 mg Capsule 300 mg PO BID RF: 0 lamotrigine [Lamictal] 25 mg Tablet 25 mg PO QHS RF: 0 ondansetron [ondansetron] 4 MG tablet 4 mg PO Q8H PRN PRN (Reason: Nausea) Qty: 10 RF: 0 Primary Care Provider: Rober Saba Referrals: Rober Saba DO [Primary Care Provider] - 3-5 Days if not improving Disposition Disposition: Home, Self Care
--- NOTE | 2022-03-18 18:25 | RAD_ITS ---
STUDY: X-RAY CHEST REASON FOR EXAM: Female, 31 years old. cough TECHNIQUE: 2 views COMPARISON: 04/27/2020 FINDINGS: Cardiomediastinal silhouette is unremarkable. Costophrenic angles are sharp. Lungs are clear. The trachea is midline. There is no pneumothorax. The bones are grossly intact. RAD/Chest PA and Lateral IMPRESSION: No acute cardiopulmonary process. Electronically Signed: Dash Holly MD at 18:54 EDT ,
[2022-03-18] MEDS: Ondansetron 4 MG/2 ML Vial IV (18:34)
[2022-03-18] MEDS: 0.9% Normal Saline 1,000 ML 1000 ML IV (18:34)
[2022-03-18 18:43] LABS: Internal QC Validated? YES +Cl - CLEAR BKGD
[2022-03-18 18:53] LABS: Pregnancy, Serum, hCG Quali. NEGATIVE Negative
[2022-03-18 18:59] LABS: Anion Gap 4 (5-15); BUN 8 mg/dL (7-18); BUN/Creat Ratio 9.6 RATIO (10-20); Calcium,Total 8.5 mg/dL (8.5-10.1); Chloride 108 mmol/L (98-107); Creatinine, Serum 0.84 mg/dL (0.55-1.02); EST Glomerular Filtration Rate 85 mL/min (>60); Est Glom Filt Rate - Afr Amer 102 mL/min (>60); Estimated Creatinine Clearance 102.34 ml/min; Glucose 107 mg/dL (74-106); Potassium 3.3 mmol/L (3.5-5.1); Sodium Level 140 mmol/L (136-145)
[2022-03-18 19:35] VITALS: RESP 14
== END 2022-03-18 21:25 | disposition home or self-care (01) ==
PROVIDERS: Emergency Provider Emergency Medicine; PCP Student in an Organized Health Care Education/Training Program; Visit Provider Emergency Medicine
DX: R09.81 Nasal congestion (principal); R11.2 Nausea with vomiting, unspecified; R19.7 Diarrhea, unspecified; F12.90 Cannabis use, unspecified, uncomplicated; F17.210 Nicotine dependence, cigarettes, uncomplicated
CPT/HCPCS: 71046; 80048; 84703; 96361; 96374; 99282; J7030; A4216; J2405

== ENCOUNTER 2022-05-03 12:00 | Outpatient (RCR) | payer OTHER, MEDICAID, SELFPAY ==
--- NOTE | 2022-02-01 11:21 | HP.PTEVAL ---
Patient's Visit Information ALPHONSO JARRETT is a 31 year old F referred to Physical Therapy by Dr. Andry Rivera MD with a diagnosis of R hip labral repair and acetabuloplasty. Date of Evaluation: 01/30/22 Physical Therapist: Chuck Rojas DPT - Visit Plan Frequency: 2x /Week Duration: 6 Weeks Plan: Start with ROM pre protocol. add in manual to glutes, hip flexos, quads, IT band. - Subjective Pt. is here today for her initial evaluation with diagnosis of R hip labral repair and acetabuloplasty. DOS: 01/09/22. She arrives on crutches with NWBing on her R LE. Pt. reports overall doing well, but is having some muscle spasming in her R hip, glute and quads. Pt. has been doing some light post op exercises including ankle pumps and circulatory exercises. Pt. is for the most part sleeping well, occasional muscle spams will wake her. 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 Pt. is scheduled to be off for ~3 months. She reports having 2/10 pain currently. She is not driving. Pt. denies N/T in either LE, no radicular pain. Pt. doers have 3 children, but does not have to pick them up much as they are older. Pt. is hopeful to get back to all work and recreational activities without limitations. - Pain R hip Pain Intensity (Out of 10): 2 Pain Intensity Range: 1, 5 - Objective POSTURE: Pt. has increased wt. shift to L side in stance, normal sitting posture. Pt. is able to stand with crutches, flat foot. She is still NWBing. PALPATION: Pt. has normal healing incisions, no signs of infection. Pt. is tender along her anterior incision. Increase muscle tone along hip flexor, quad, glute med, and IT band. NEURO: Pt. has normal sensation and normal DTR of BLEs. ROM: L hip: patient has normal ROM including ER, IR, extension, flexion and abd. R hip: supine flexion 85deg, ER 30deg, IR 15deg. No over pressures applied. MMT: LLE: 5/5 throughout. RLE knee and ankle 5/5, rest not tested. GAIT: Pt. ambulates with crutches with flat foot WBing with good tolerance. Pt. reports no pain with gait. Stairs: not trialed. - Balance/Special Test Scores Lower Extremity Functional Score: 22 - Goals Goal 1:: LTG: Pt. to be I with HEP for R hip stretching and ROM. Goal Time Frame: 4-6 Weeks Goal 2:: STG: Pt. to sleep throughout the night without increase in symptoms. Goal Time Frame: 2 Weeks Goal 3:: STG: Pt. to have increased ROM of her R hip to full without increase in symptoms. Goal 4:: LTG: Pt. to ambulate with normal gait pattern without use of crutches without increase in symptoms. Goal Time Frame: 4-6 Weeks Goal 5:: LTG: Pt. to negotiate steps with 1 HR with reciprocal pattern without increase in symptoms. Goal Time Frame: 4-6 Weeks Goal 6:: LTG: pt. to have increased RLE strength of RLE to 5/5 throughout without increase in symptoms. Goal Time Frame: 6-8 Weeks - Rehabilitation Potential Physical Therapy Diagnosis: Pt. has signs and symptoms consistent with R hip labral repair and acetabuloplasty. DOS: . Pt. has subsequent hypomobility, weakness, difficulty walking, and increased pain. Pt. would benefit from PT to address the above limitation progressing back to all recreational activities without limitations. Rehabilitation Potential: Excellent - Anticipated Interventions Patient/Client Instruction: Educate patient on: Condition, Plan of Care, Risk Factors, Benefits of Fitness Program For the Purpose of:: To foster healthy habits, To improve decision making, To facilitate caregiver knowledge, To improve self management, To prevent re-injury, To improve ability to perform tasks related to life management Therapeutic Exercise to Include: Strength training, Power training, Balance training, Coordination, Body mechanics, Postural training, Flexibilty training, Gait and locomotor training, Passive ROM, Active ROM, Dynamic Lumbar Stabilization For the Purpose of:: To decrease pain, To increase ROM, To increase oxygenation perfusion, To improve muscle performance and motor function, To improve ability to perform ADL's, To increase tolerance to activity/condition/position, To decrease level of supervision to perform tasks, To improve ability of physical actions for home/community/work/leisure, To improve gait and locomotor functions, To improve health of tissue, To decrease soft tissue restriction, To increase flexibility/ROM, To improve endurance, To improve balance Manual Therapy Techniques to Include: Mobilization, Functional dry needling, Soft tissue mobilization For the Purpose of:: To decrease pain, To decrease swelling/inflammation, To increase ROM, To improve nutrient delivery to tissue, To increase oxygenation perfusion, To improve muscle performance and motor function Cryotherapy (ice pack, ice massage): Yes Thermo therapy (hot pack): Yes For the Purpose of:: To decrease pain, To increase ROM, To improve nutrient delivery to tissue, To increase oxygenation perfusion Thank you for the opportunity to evaluate your patient. For Medicare and Medicare HMO plans, please review the plan of care and approve it. It will need to be FAXED BACK to us at [phone] for Medicare purposes. For Medicare only, by signing this I certify the plan of care. Please let me know if there are questions or concerns regarding this plan of care. Physician Signature: Date:
--- NOTE | 2022-03-20 10:32 | HP.PTREVAL_ITS ---
Dr. Andry Rivera MD, It has been my pleasure to treat ALPHONSO JARRETT over the last 8 visits for R hip labral repair and acetabuloplasty. Please see the progress note below for an update on the physical therapy plan of care! Subjective: pt. reports overall doing well. She is to start back at work next week on light duty with a lifting restriction. Pt. reports being 50% better overall. She is no longer having any pain with daily activities. HEP compliant. Objective/Function: ROM: R hip close to full motion without increase in symptoms, no pain with end range flexion, extension, close to full motion or hip ER. MMT: R hip: flexion 4+/5 no pain, abd 4+/5 no pain, ext 5-/5 no pain. ER 4/5 no pain, IR 4/5 no pain. GAIT: Pt. has normal gait pattern without increase in symptoms. STAIRS: normal without increase in symptoms with reciprocal pattern and no HR. Good squat mechanics no lateral wt. shift away from R hip. OVerall she is doing well. I would like her to continue with protocol with progression of strengthening. Cont. to avoid irritation of hip flexor. Plan Plan: Cont. with next phase of protocol. She is currently 9 weeks out. Cont. to be caution of hip flexor irritation, but is progressing very well. Balance/Gait/Functional tests - Balance/Special Test Scores Lower Extremity Functional Score: 22 Goals Goal 1:: LTG: Pt. to be I with HEP for R hip stretching and ROM. Goal Time Frame: 4-6 Weeks Goal Progress: Goal Met Goal 2:: STG: Pt. to sleep throughout the night without increase in symptoms. Goal Time Frame: 2 Weeks Goal Progress: Goal Met Goal 3:: STG: Pt. to have increased ROM of her R hip to full without increase in symptoms. Goal Progress: Goal Met Goal 4:: LTG: Pt. to ambulate with normal gait pattern without use of crutches without increase in symptoms. Goal Time Frame: 4-6 Weeks Goal Progress: Goal Met Goal 5:: LTG: Pt. to negotiate steps with 1 HR with reciprocal pattern without increase in symptoms. Goal Time Frame: 4-6 Weeks Goal Progress: Goal Met Goal 6:: LTG: pt. to have increased RLE strength of RLE to 5/5 throughout without increase in symptoms. Goal Time Frame: 6-8 Weeks Goal Progress: Progressing Anticipated Interventions Patient/Client Instruction: Educate patient on: Condition, Plan of Care, Risk Factors, Benefits of Fitness Program For the Purpose of:: To foster healthy habits, To improve decision making, To facilitate caregiver knowledge, To improve self management, To prevent re- injury, To improve ability to perform tasks related to life management Therapeutic Exercise to Include: Strength training, Power training, Balance training, Coordination, Body mechanics, Postural training, Flexibilty training, Gait and locomotor training, Passive ROM, Active ROM, Dynamic Lumbar Stabilization For the Purpose of:: To decrease pain, To increase ROM, To increase oxygenation perfusion, To improve muscle performance and motor function, To improve ability to perform ADL's, To increase tolerance to activity/condition/position, To decrease level of supervision to perform tasks, To improve ability of physical actions for home/community/work/leisure, To improve gait and locomotor functions, To improve health of tissue, To decrease soft tissue restriction, To increase flexibility/ROM, To improve endurance, To improve balance Manual Therapy Techniques to Include: Mobilization, Functional dry needling, Soft tissue mobilization For the Purpose of:: To decrease pain, To decrease swelling/inflammation, To increase ROM, To improve nutrient delivery to tissue, To increase oxygenation perfusion, To improve muscle performance and motor function Cryotherapy (ice pack, ice massage): Yes Thermo therapy (hot pack): Yes For the Purpose of:: To decrease pain, To increase ROM, To improve nutrient delivery to tissue, To increase oxygenation perfusion Please do not hesitate to contact me at [phone] by phone or if you have questions or concerns regarding this new plan of care! Sincerely, Chuck Rojas DPT
== END 2022-05-03 19:00 | disposition home or self-care (01) ==
LOC: PT 12:00
PROVIDERS: PCP Student in an Organized Health Care Education/Training Program; Referring Provider Orthopaedic Surgery Sports Medicine; Visit Provider Orthopaedic Surgery Sports Medicine
DX: M25.151 Fistula, right hip (principal)
CPT/HCPCS: 97110; 97140; 97161; 97164

== ENCOUNTER 2022-05-31 19:58 | Emergency (ER) | payer OTHER, MEDICAID, SELFPAY ==
[2022-05-31 19:58] VITALS: BP 127/84; PULSE 103; RESP 15; TEMP 37.3; O2SAT 100; BMI 28.2
--- NOTE | 2022-05-31 20:30 | EDS_ITS ---
HPI History of Present Illness Chief Complaint: Abscess Informant: patient Onset/Context/Timing Onset: Weeks (3) Context: Gradual Onset Timing: Continuous Quality: Burning Location: Sacrum Worsened by: Activity Relieved by: Nothing Narrative Narrative: Patient presents with abscess to her tailbone area that has been getting progressively worse over the past 3 weeks. Patient describes her pain as burning. Patient states it is localized to the sacral area. Patient does admit to some mild purulent and bloody drainage that is intermittent. Patient states her pain is worse with certain activities. Patient denies any fevers or chills. Patient does admit to some nausea but denies any vomiting. Patient denies any other symptoms. [facility] Medical History ADHD Alcohol abuse Alcohol use disorder, mild, in early remission Anemia Anxiety and depression ASCUS with positive high risk HPV Bipolar disorder, unspecified Generalized anxiety disorder Genital herpes History of meningitis History of multiple pulmonary nodules Palpitations PTSD (post-traumatic stress disorder) Tobacco use Varicosities of leg Home Medications meloxicam 15 mg tablet 15 tablet PO DAILY PRN Pain. #0 tabs 04/18/21 [Rx Last Taken 04/15/21 07:00] aripiprazole 10 mg tablet (Abilify) 10 mg PO QHS 30 days #30 tabs 05/18/21 [Rx Last Taken Unknown] trazodone 100 mg tablet 100 mg PO QHS 30 days #30 tabs 05/18/21 [Rx Last Taken Unknown] gabapentin 300 mg capsule 300 mg PO BID 06/15/21 [History Last Taken Unknown] lamotrigine 25 mg tablet (Lamictal) 25 mg PO QHS 07/06/21 [History Last Taken Unknown] ondansetron 4 mg disintegrating tablet 4 mg PO Q8H PRN PRN Nausea #10 tabs 11/18/21 [Rx Last Taken Unknown] ondansetron 4 mg disintegrating tablet 4 mg PO Q8H PRN nausea and vomiting #10 tabs 03/18/22 [Rx Last Taken Unknown] sulfamethoxazole 800 mg-trimethoprim 160 mg tablet 1 tab PO BID #14 TABLETS 05/31/22 [Rx Last Taken Unknown] Allergy/AdvReac Type Severity Reaction Status Date / Time azithromycin [From Zithromax] Allergy Rash Verified 05/31/22 20:01 amoxicillin AdvReac Vomiting Verified 05/31/22 20:02 red dye AdvReac Vomiting Verified 05/31/22 20:01 Family History Mother Anxiety and depression Bipolar disorder Polysubstance abuse Other Arthritis Cancer Heart disease Myocardial infarction Surgical History History of arthroscopic knee surgery History of tubal ligation History of varicose vein stripping Social History household members: spouse and family Smoking Status: Current every day smoker tobacco type: cigarettes and cigars quit status: has quit before alcohol intake: current alcohol intake frequency: 3 or more drinks per day Alcohol type: beer details: 4-6, 12 ounce beers daily since age 18. substance use type: marijuana caffeine: Yes Type: carbonated beverages Number of servings: 2, coffee and tea what type of physical activity do you participate in: none ROS ROS ED Constitutional Constitutional ED: Denies chills or fever(s) Eyes Eyes: Denies blurry vision or change in vision ENT ENT ED: Denies rhinorrhea or sore throat Cardiovascular Cardiovascular: Denies chest pain or palpitations Respiratory/Chest Respiratory/Chest: Denies cough or dyspnea Gastrointestinal Gastrointestinal: Reports nausea; Denies vomiting Genitourinary Genitourinary ED: Denies dysuria or hematuria Musculoskeletal Musculoskeletal: Reports back pain; Denies neck pain Integumentary Reports abscess; Denies rash Neurologic Neurologic: Denies headache(s) or weakness Allergic/Immunologic Allergic/Immunologic ED: Denies mouth swelling or urticaria EXAM Physical Exam Const Vital Signs: 05/31/22 19:58 Temperature 99.1 F Temperature Source Temporal Pulse Rate 103 H Respiratory Rate 15 Blood Pressure 127/84 H Blood Pressure Mean 98 Pulse Ox 100 Oxygen Delivery Method Room Air Positive well nourished and well developed General Appearance ED: well developed HEENT Reports moist mucous membranes GI non-tender and non-distended Palpation: soft Neuro oriented x3, CN's II-XII intact bilaterally and no sensory deficits noted Sensorium / Orientation: alert Motor Exam: strength 5/5 throughout Psych mental status grossly normal Skin Skin Narrative: There is a tender indurated area over the sacrum. There is some mild bleeding noted. There is minimal fluctuance. There is no purulent drainage. There is no surrounding erythema or cellulitis. MDM MDM MDM Narrative Medical decision making narrative: The area was cleaned with chlorhexidine prep. The area was anesthetized with 1% [plain lidocaine] locally. A small cruciate incision was made using an 11 blade scalpel. A moderate amount of purulent drainage was expressed. The wound was left open. Bacitracin dressing was applied. Patient tolerated the procedure well. Patient was instructed to use warm compresses. Patient was given a dose of Bactrim here. Patient was given a prescription for Bactrim. Patient was instructed to follow-up with her primary care physician in 5 to 7 days. Patient understood and was agreeable with the plan. All questions were answered. Procedures Other Procedures Procedure(s): The gluteal area was cleaned and prepped in a sterile manner. The area was anesthetized with 1% plain lidocaine locally. A small cruciate incision was made in the middle of the fluctuant area. Moderate amount of purulent drainage was expressed. The area was irrigated. Patient tolerated the procedure well. Discharge Plan Triage Chief Complaint: Abscess ED Provider: Rohit Liu Dx/Rx/DC Orders Clinical Impression: Abscess of gluteal cleft Instructions: ED Abscess Incision And Drainage Prescriptions: New sulfamethoxazole-trimethoprim [sulfamethoxazole-trimethoprim] 800-160 mg tablet 1 tab PO BID Qty: 14 0RF No Action meloxicam 15 mg tablet 15 tablet PO DAILY PRN (Reason: Pain.) Qty: 0 0RF aripiprazole [Abilify] 10 mg tablet 10 mg PO QHS 30 Days Qty: 30 1RF trazodone 100 mg tablet 100 mg PO QHS 30 Days Qty: 30 1RF gabapentin 300 mg Capsule 300 mg PO BID lamotrigine [Lamictal] 25 mg Tablet 25 mg PO QHS Rx Instructions: 25mg qHS x 14 days, then 50mg qHS x 14 days ondansetron [ondansetron] 4 MG tablet 4 mg PO Q8H PRN PRN (Reason: Nausea) Qty: 10 0RF ondansetron 4 mg tablet,disintegrating 4 mg PO Q8H PRN (Reason: nausea and vomiting) Qty: 10 0RF Primary Care Provider: Rober Saba Referrals: Rober Saba, DO [Primary Care Provider] - 5-7 Days Disposition Disposition: Home, Self Care
[2022-05-31] MEDS: Smz/Tmp Ds Tablet 1 TABLET PO (21:47)
[2022-05-31] MEDS: Lidocaine 1% (20 ml mdv) 20 ML Vial INFILT (21:47)
== END 2022-05-31 21:49 | disposition home or self-care (01) ==
PROVIDERS: Emergency Provider Emergency Medicine; PCP Student in an Organized Health Care Education/Training Program; Visit Provider Emergency Medicine
DX: L02.31 Cutaneous abscess of buttock (principal); F31.9 Bipolar disorder, unspecified; F17.210 Nicotine dependence, cigarettes, uncomplicated; F12.90 Cannabis use, unspecified, uncomplicated; F41.9 Anxiety disorder, unspecified; Z79.899 Other long term (current) drug therapy
CPT/HCPCS: 10060; 99283

== ENCOUNTER 2022-06-16 22:24 | Emergency (ER) | payer OTHER, MEDICAID, SELFPAY ==
[2022-06-16 22:25] VITALS: TEMP 36.9; BMI 28.1
[2022-06-16 22:37] VITALS: BP 142/81; PULSE 118; RESP 11; O2SAT 100; BMI 28.2
--- NOTE | 2022-06-16 22:45 | CT_ITS ---
EXAM: CT ANGIOGRAPHY HEAD AND NECK WITH INTRAVENOUS CONTRAST CLINICAL INDICATION: left neck pain, LUE neuro sx, tachy r/o dissection TECHNIQUE: [place] [facility] [place]/head and neck CT angiography protocol performed with intravenous contrast. CTDIvol = ( 35.68 ) mGy, DLP = ( 1806.29 ) mGycm This CT exam was performed using one or more of the following dose reduction techniques: automated exposure control, adjustment of the mA and/or kV according to patient size, and/or use of iterative reconstruction technique. This report was created using 24tidy report MX Logic technology. MIP reconstructed images were created and reviewed. CONTRAST: IV 100mL Isovue-370 COMPARISON: None. FINDINGS: HEAD: RIGHT ANTERIOR CEREBRAL ARTERY: Unremarkable. No significant stenosis at the visualized segments. Anterior communicating artery is present. No aneurysm. RIGHT MIDDLE CEREBRAL ARTERY: Unremarkable. No significant stenosis at the visualized segments. No aneurysm. RIGHT POSTERIOR CEREBRAL ARTERY: Unremarkable. No occlusion or significant stenosis. No aneurysm. RIGHT INTRACRANIAL INTERNAL CAROTID ARTERY: Unremarkable. No significant stenosis. No dissection or occlusion. RIGHT INTRACRANIAL VERTEBRAL ARTERY: Unremarkable. No significant stenosis. No dissection or occlusion. LEFT ANTERIOR CEREBRAL ARTERY: Unremarkable. No significant stenosis at the visualized segments. No aneurysm. LEFT MIDDLE CEREBRAL ARTERY: Unremarkable. No significant stenosis at the visualized segments. No aneurysm. LEFT POSTERIOR CEREBRAL ARTERY: Unremarkable. No occlusion or significant stenosis. No aneurysm. LEFT INTRACRANIAL INTERNAL CAROTID ARTERY: Unremarkable. No significant stenosis. No dissection or occlusion. LEFT INTRACRANIAL VERTEBRAL ARTERY: Unremarkable. No significant stenosis. No dissection or occlusion. BASILAR ARTERY: Unremarkable. No significant stenosis. No aneurysm. OTHER VASCULATURE: No vascular malformation. NECK: RIGHT COMMON CAROTID ARTERY: Unremarkable. No significant stenosis. No dissection or occlusion. RIGHT EXTRACRANIAL INTERNAL CAROTID ARTERY: Unremarkable. No significant stenosis. No dissection or occlusion. RIGHT EXTERNAL CAROTID ARTERY: Unremarkable. No occlusion. RIGHT EXTRACRANIAL VERTEBRAL ARTERY: Unremarkable. No significant stenosis. No dissection or occlusion. LEFT COMMON CAROTID ARTERY: Unremarkable. No significant stenosis. No dissection or occlusion. LEFT EXTRACRANIAL INTERNAL CAROTID ARTERY: Unremarkable. No significant stenosis. No dissection or occlusion. LEFT EXTERNAL CAROTID ARTERY: Unremarkable. No occlusion. LEFT EXTRACRANIAL VERTEBRAL ARTERY: Unremarkable. No significant stenosis. No dissection or occlusion. GREAT VESSELS OF AORTIC ARCH: Unremarkable as visualized. Normal anatomy, patent. LUNG APICES: Unremarkable as visualized. HEAD and NECK: BONES/JOINTS: Unremarkable. No discrete lytic or blastic abnormalities. SOFT TISSUES: Unremarkable. CAROTID STENOSIS REFERENCE USING NASCET CRITERIA: % ICA stenosis = (1 - narrowest ICA diameter/diameter of distal cervical ICA) x 100. Mild - <50% stenosis. Moderate - 50-69% stenosis. Severe - 70-94% stenosis. Near occlusion - 95-99% stenosis. Occluded - 100% stenosis. CT/CTA Head AND Neck W/ Contrast IMPRESSION: Negative CTA carotid and CTA brain. Electronically Signed: Dileep Sahu MD at 1:08 EDT ,
--- NOTE | 2022-06-16 22:45 | CT_ITS ---
EXAM: CT ANGIOGRAPHY CHEST WITHOUT AND WITH INTRAVENOUS CONTRAST CLINICAL INDICATION: cp, tachycardia, r/o dissection TECHNIQUE: Helically acquired angiography images were obtained of the chest without and with intravenous contrast. CTDIvol = ( 19.51 ) mGy, DLP = ( 982.16 ) mGycm This CT exam was performed using one or more of the following dose reduction techniques: automated exposure control, adjustment of the mA and/or kV according to patient size, and/or use of iterative reconstruction technique. This report was created using Rocket[employer]ux report generation technology. MIP reconstructed images were created and reviewed. CONTRAST: IV 100mL Isovue-370 COMPARISON: None. FINDINGS: PULMONARY ARTERIES: Dilated pulmonary trunk and pulmonary hypertension. No evidence of pulmonary embolism. AORTA: No aortic aneurysm or dissection. GREAT VESSELS OF AORTIC ARCH: Unremarkable. Normal in caliber. No evidence of dissection. LUNGS AND PLEURAL SPACES: Small calcified granuloma at the posterior medial aspect of the right lower lobe. No consolidation. No pleural effusion or pneumothorax. HEART: Unremarkable. Heart size is normal. No pericardial effusion. No signs of right heart strain, ratio of right ventricle to left ventricle measures less than 1. MEDIASTINUM: Unremarkable. No mediastinal or hilar adenopathy. Esophagus is unremarkable. No hiatal hernia. THYROID: Unremarkable. No thyroid lesions. BONES/JOINTS: Unremarkable. No suspicious lytic or blastic abnormality. Cholelithiasis with gallstones, incompletely imaged [address] evidence for acute cholecystitis. CT/CTA Chest W/WO Contrast IMPRESSION: No PE, pneumonia or other acute disease. Electronically Signed: Dileep Sahu MD at 1:22 EDT ,
--- NOTE | 2022-06-16 22:47 | EKG12_ITS ---
Test Reason : STROKE ALERT Blood Pressure : / mmHG Vent. Rate : 098 BPM Atrial Rate : 098 BPM P-R Int : 142 ms QRS Dur : 096 ms QT Int : 380 ms P-R-T Axes : 043 040 016 degrees QTc Int : 485 ms Normal sinus rhythm Prolonged QT Abnormal ECG Confirmed by MARIXA TAVAREZ, JESUS ([id number]), restaurant expeditor JACQUELINE CHEN ([id number]) on 06/19/2022 11:44:53 AM Referred By: AILYN Confirmed By:MIAN CALVIN MD
--- NOTE | 2022-06-16 22:48 | EX.ED.DYSGE1 ---
HPI History of Present Illness Chief Complaint: Neuro S/Sx Detail of Chief Complaint: palpitations Informant: patient Onset/Context/Timing Onset: Hours (1) Context: Sudden Onset Timing: Continuous Quality: racing HB Location: chest Current Severity: Mild Maximum Severity: Severe Worsened by: nothing Relieved by: nothing in particular Associated Symptoms Associated Symptoms: intermittent ant chest pain pounding, left lat-post neck pain, paresthesias Narrative Narrative: Patient states she laid down in the tub after getting home from work, she has a [employer] here at the hospital, she started feeling palpitations and feeling very funny and lightheaded. Her heart was racing, she had an apple watch on that told her that her heart rate was over 128, at 1 point it was in the 160s. She started having left-sided neck and shoulder pain along with paresthesias in the same distribution that went into the proximal left upper extremity but no further. She denies any other extremity neurologic symptoms. She had some pounding/dull chest pain off and on in addition to the tachycardia. The symptoms have improved now, she does not have the neck pain and tingling now. She had some mild dyspnea during this, she does not remember pleuritic component, but she is unsure. She denies any recent leg pain or swelling although she did have surgery in her right hip several months ago. It is still sore when she does certain movements. EMS detected she had right-sided weakness on exam and called a prehospital stroke team, she and EMS were met in the hallway by myself. Patient states she did have these palpitations occur one other time, was not detected in the emergency department, she had a Holter monitor that did not detect anything and she has followed up with cardiology annually without detecting anything. [facility] Medical History ADHD Alcohol abuse Alcohol use disorder, mild, in early remission Anemia Anxiety and depression ASCUS with positive high risk HPV Bipolar disorder, unspecified Generalized anxiety disorder Genital herpes History of meningitis History of multiple pulmonary nodules Palpitations PTSD (post-traumatic stress disorder) Tobacco use Varicosities of leg Home Medications meloxicam 15 mg tablet 15 tablet PO DAILY PRN Pain. #0 tabs 04/18/21 [Rx Last Taken 04/15/21 07:00] aripiprazole 10 mg tablet (Abilify) 10 mg PO QHS 30 days #30 tabs 05/18/21 [Rx Last Taken Unknown] trazodone 100 mg tablet 100 mg PO QHS 30 days #30 tabs 05/18/21 [Rx Last Taken Unknown] gabapentin 300 mg capsule 300 mg PO BID 06/15/21 [History Last Taken Unknown] lamotrigine 25 mg tablet (Lamictal) 25 mg PO QHS 07/06/21 [History Last Taken Unknown] ondansetron 4 mg disintegrating tablet 4 mg PO Q8H PRN PRN Nausea #10 tabs 11/18/21 [Rx Last Taken Unknown] ondansetron 4 mg disintegrating tablet 4 mg PO Q8H PRN nausea and vomiting #10 tabs 03/18/22 [Rx Last Taken Unknown] sulfamethoxazole 800 mg-trimethoprim 160 mg tablet 1 tab PO BID #14 TABLETS 05/31/22 [Rx Last Taken Unknown] Allergy/AdvReac Type Severity Reaction Status Date / Time azithromycin [From Zithromax] Allergy Rash Verified 06/16/22 22:35 amoxicillin AdvReac Vomiting Verified 06/16/22 22:35 red dye AdvReac Vomiting Verified 06/16/22 22:35 Family History Mother Anxiety and depression Bipolar disorder Polysubstance abuse Other Arthritis Cancer Heart disease Myocardial infarction Surgical History History of arthroscopic knee surgery History of tubal ligation History of varicose vein stripping Social History household members: spouse and family Smoking Status: Current every day smoker tobacco type: cigarettes and cigars quit status: has quit before alcohol intake: current alcohol intake frequency: 3 or more drinks per day Alcohol type: beer details: 4-6, 12 ounce beers daily since age 18. substance use type: marijuana caffeine: Yes Type: carbonated beverages Number of servings: 2, coffee and tea what type of physical activity do you participate in: none ROS ROS ED Constitutional Constitutional ED: Denies chills or fever(s) Eyes Eyes: Denies change in vision or diplopia ENT ENT ED: Denies rhinorrhea or sore throat Cardiovascular Cardiovascular: Reports as per HPI, chest pain, palpitations and racing heartbeat Respiratory/Chest Respiratory/Chest: Reports dyspnea; Denies cough Gastrointestinal Gastrointestinal: Denies abdominal pain, diarrhea, nausea or vomiting Genitourinary Genitourinary ED: Denies dysuria or hematuria Musculoskeletal Musculoskeletal: Reports neck pain and other Details: Right hip soreness since surgery see HPI ; Denies back pain Integumentary Denies abscess or rash Neurologic Neurologic: Reports paresthesias; Denies headache(s) or weakness Psychiatric Psychiatric: Denies anxiety or suicidal thoughts EXAM Physical Exam Const Vital Signs: 06/16/22 22:25 06/16/22 22:37 06/16/22 23:24 Temperature 98.4 F Temperature Source Temporal Pulse Rate 118 H 89 Respiratory Rate 11 L 18 Blood Pressure 142/81 H 131/78 H Blood Pressure Mean 101 95 Pulse Ox 100 100 Oxygen Delivery Method Room Air Room Air Room Air 06/17/22 00:24 Temperature Temperature Source Pulse Rate 95 Respiratory Rate 18 Blood Pressure 144/85 H Blood Pressure Mean 104 Pulse Ox 95 Oxygen Delivery Method Room Air Positive well nourished and well developed General Appearance ED: well developed and NAD HEENT Reports moist mucous membranes normocephalic and atraumatic Eyes PERRL and EOMs intact bilaterally Neck full ROM and supple Neck Narrative: No carotid bruits Chest Wall inspection of chest normal and palpation of chest normal Resp normal respiratory effort and clear to auscultation bilaterally Cardio regular rate, regular rhythm, no murmurs and peripheral pulses 2+ throughout Rate: tachycardic GI non-tender and non-distended Auscultation: normoactive bowel sounds Palpation: soft Back/Spine no CVA tenderness General Back: other FROM Extremity normal to inspection General Extremety ED: Negative for edema, pulses abnormal or tenderness General Extremity: Negative for edema or pulses abnormal Neuro oriented x3, CN's II-XII intact bilaterally and no sensory deficits noted Neuro Narrative: Mild weakness only discoverable when patient is resisting forward flexion right upper extremity, 4+/5 strength otherwise 5/5. Limited a little due to pain in the right hip with regards to flexing forward right lower extremity no weakness. Sensorium / Orientation: awake and alert Motor Exam: strength 5/5 throughout Psych mental status grossly normal Skin no rashes or lesions noted and no wounds MDM MDM MDM Narrative Medical decision making narrative: Stroke team was canceled. This is not an acute stroke. However it is possible although I think less likely then referred symptoms that the patient could be having an arterial dissection of the aorta or neck. Therefore she was sent for CT angiography of the head, neck, chest in order to also rule out pulmonary embolism given these symptoms. That was negative. She was monitored in emergency department, initially she was in sinus tachycardia by the time the EKG was obtained it was unremarkable with a rate down into the 90s. Her potassium was a little low at 3.1 the rest of the work-up was negative, I gave her some IV potassium and oral potassium supplementation while we waited for the CT results to return and on reevaluation she feels back to normal with resolution of all symptoms. Given the negative CT, my suspicion is that the discomfort in the left neck, shoulder, arm were referred from what ever was causing her palpitations/heart symptoms. My concern is that she had an episode of SVT, we will have her follow-up with cardiology, she did not have syncope or any high risk features. She is in agreement. Lab Data Attestation: I reviewed the patient's lab results. Labs: Laboratory Results - last 24 hr 06/16/22 06/16/22 06/16/22 22:55 22:55 22:55 WBC 12.6 H RBC 4.32 Hgb 12.8 Hct 36.8 L MCV 85.2 MCH 29.6 MCHC 34.8 RDW Std Deviation 41.0 RDW Coeff of [place] 13.2 Plt Count 239 MPV 10.0 Immature Gran % (Auto) 0.800 Neut % (Auto) 66.6 Lymph % (Auto) 23.5 [place] % (Auto) 6.6 Eos % (Auto) 1.9 Baso % (Auto) 0.6 Absolute Neuts (auto) 8.4 H Absolute Lymphs (auto) 2.97 Nucleated RBC % 0 Sodium 139 Potassium 3.1 L Chloride 109 H Carbon Dioxide 23.0 Anion Gap 7 BUN 8 Creatinine 0.98 Estim Creat Clear Calc 86.93 Est GFR (MDRD) Af Amer 86 Est GFR (MDRD) Non-Af 71 BUN/Creatinine Ratio 8.2 L Glucose 126 H Calcium 8.4 L Troponin I High Sens 5 Serum , Qual NEGATIVE Radiography Diagnostic Testing: Clinical Impression(s) from Imaging Studies Chest CTA 06/16/22 22:45 IMPRESSION: No PE, pneumonia or other acute disease. Electronically Signed: Dileep Sahu MD at 1:22 EDT , Head/Neck CTA 06/16/22 22:45 IMPRESSION: Negative CTA carotid and CTA brain. Electronically Signed: Dileep Sahu MD at 1:08 EDT , Rhythm Strip Rhythm Strip: Sinus Tach Rate: 120 Ectopy: None EKG Initial EKG: Attestation: I personally reviewed and interpreted this EKG as follows: Interpretation: Sinus Rhythm (98) and No Acute Injury Pattern Discharge Plan Triage Chief Complaint: Neuro S/Sx ED Provider: Kd Carter Dx/Rx/DC Orders Clinical Impression: Rapid palpitations, Intermittent chest pain, Neck pain on left side, Hypokalemia Instructions: ED About Arrhythmias Prescriptions: No Action meloxicam 15 mg tablet 15 tablet PO DAILY PRN (Reason: Pain.) Qty: 0 0RF aripiprazole [Abilify] 10 mg tablet 10 mg PO QHS 30 Days Qty: 30 1RF trazodone 100 mg tablet 100 mg PO QHS 30 Days Qty: 30 1RF gabapentin 300 mg Capsule 300 mg PO BID lamotrigine [Lamictal] 25 mg Tablet 25 mg PO QHS Rx Instructions: 25mg qHS x 14 days, then 50mg qHS x 14 days ondansetron [ondansetron] 4 MG tablet 4 mg PO Q8H PRN PRN (Reason: Nausea) Qty: 10 0RF ondansetron 4 mg tablet,disintegrating 4 mg PO Q8H PRN (Reason: nausea and vomiting) Qty: 10 0RF sulfamethoxazole-trimethoprim [sulfamethoxazole-trimethoprim] 800-160 mg tablet 1 tab PO BID Qty: 14 0RF Primary Care Provider: Rober Saba Referrals: Rober Saba DO [Primary Care Provider] - Brianna Nazario MD [Med Staff - Active Staff] - As soon as possible Disposition Disposition: Home, Self Care
[2022-06-16 23:21] LABS: Absolute Lymphocyte Count 2.97 X10^3/uL (0.83-4.51); Absolute Neutrophil Count 8.4 X10^3/uL (2.0-7.7); Basophil# 0.07 X10^3/uL; Basophil% 0.6 % (0-1); Eosinophil# 0.24 X10^3/uL; Eosinophils% 1.9 % (0-5); Hematocrit 36.8 % (37-47); Hemoglobin 12.8 g/dL (12.0-15.0); Lymphocyte # 2.97 X10^3/ul (0.83-4.51); Lymphocyte % 23.5 % (19-41); Mean Corp Hgb Conc 34.8 g/dL (32-36); Mean Corpuscular Hgb 29.6 pg (27.0-32.0); Mean Corpuscular Volume 85.2 fL (81-99); Monocyte# 0.84 X10^3/uL; Monocyte% 6.6 % (0-10); NRBC Flagged by Analyzer 0 % (0-5); Neutrophil # 8.42 X10^3/uL (2.7-7.7); Neutrophil % 66.6 % (47-70); Platelet Count 239 K/mm3 (150-450); RBC Distribution Width CV 13.2 % (11.6-14.6); Red Blood Count 4.32 M/mm3 (4.2-5.4); White Blood Count 12.6 K/mm3 (4.4-11.0)
[2022-06-16 23:23] LABS: Internal QC Validated? YES +Cl - CLEAR BKGD; Pregnancy, Serum, hCG Quali. NEGATIVE Negative
[2022-06-16 23:24] VITALS: BP 131/78; PULSE 89; RESP 18; O2SAT 100
[2022-06-16 23:34] LABS: Anion Gap 7 (5-15); BUN 8 mg/dL (7-18); BUN/Creat Ratio 8.2 RATIO (10-20); Calcium,Total 8.4 mg/dL (8.5-10.1); Chloride 109 mmol/L (98-107); Creatinine, Serum 0.98 mg/dL (0.55-1.02); EST Glomerular Filtration Rate 71 mL/min (>60); Est Glom Filt Rate - Afr Amer 86 mL/min (>60); Estimated Creatinine Clearance 86.93 ml/min; Glucose 126 mg/dL (74-106); Potassium 3.1 mmol/L (3.5-5.1); Sodium Level 139 mmol/L (136-145); Troponin-I HS 5 pg/mL (3.0-54.0)
[2022-06-17 00:24] VITALS: BP 144/85; PULSE 95; RESP 18; O2SAT 95
[2022-06-17] MEDS: Potassium Chloride 10mEq/100mL 10 MEQ/100 ML IV.SOLN. 100 MEQ IV BOLUS (00:28)
[2022-06-17] MEDS: 0.9% Normal Saline 1,000 ML 999 ML IV (00:28)
[2022-06-17] MEDS: Potassium Chloride Oral Tablet 20 MEQ 40 MEQ PO (00:32)
[2022-06-17 01:51] VITALS: BP 127/73; PULSE 70; O2SAT 99
== END 2022-06-17 01:55 | disposition home or self-care (01) ==
PROVIDERS: Emergency Provider Emergency Medicine; PCP Student in an Organized Health Care Education/Training Program; Visit Provider Emergency Medicine
DX: R00.2 Palpitations (principal); R07.9 Chest pain, unspecified; M54.2 Cervicalgia; E87.6 Hypokalemia; F17.210 Nicotine dependence, cigarettes, uncomplicated; F12.90 Cannabis use, unspecified, uncomplicated
CPT/HCPCS: 70496; 70498; 71275; 80048; 84484; 84703; 85025; 93005; 96365; 96366; 99285; J7030; Q9967

== ENCOUNTER → 2022-06-23 | Outpatient (CLI) | payer OTHER, MEDICAID, SELFPAY ==
[2022-06-23 15:58] LABS: Hematocrit 38.1 % (37-47); Hemoglobin 13.2 g/dL (12.0-15.0); Mean Corp Hgb Conc 34.6 g/dL (32-36); Mean Corpuscular Hgb 30.1 pg (27.0-32.0); Mean Corpuscular Volume 86.8 fL (81-99); Mean Platelet Vol. 9.8 fl (6.2-12.0); Platelet Count 256 K/mm3 (150-450); RBC Distribution Width CV 13.3 % (11.6-14.6); RBC Distribution Width SD 42.2 fl (35.1-43.9); Red Blood Count 4.39 M/mm3 (4.2-5.4); White Blood Count 9.3 K/mm3 (4.4-11.0)
[2022-06-23 16:22] LABS: Anion Gap 5 (5-15); BUN 6 mg/dL (7-18); BUN/Creat Ratio 6.3 RATIO (10-20); Calcium,Total 8.4 mg/dL (8.5-10.1); Chloride 107 mmol/L (98-107); Creatinine, Serum 0.95 mg/dL (0.55-1.02); EST Glomerular Filtration Rate 73 mL/min (>60); Est Glom Filt Rate - Afr Amer 88 mL/min (>60); Glucose 122 mg/dL (74-106); Magnesium 2.3 mg/dL (1.6-2.6); Potassium 3.5 mmol/L (3.5-5.1); Sodium Level 139 mmol/L (136-145); T4 Total, Thyroxin 8.6 ug/dL (4.8-13.9); Thyroid Stim Hormone (TSH) 1.52 uIU/mL (0.358-3.74)
== END | disposition home or self-care (01) ==
LOC: LAB 15:28
PROVIDERS: PCP Student in an Organized Health Care Education/Training Program; Referring Provider Physician Assistant Medical; Visit Provider Physician Assistant Medical
DX: E87.6 Hypokalemia (principal); D64.9 Anemia, unspecified; R00.2 Palpitations
CPT/HCPCS: 36415; 80048; 83735; 84436; 84443; 85027

== ENCOUNTER 2022-06-27 18:02 | Emergency (ER) | payer OTHER, MEDICAID, SELFPAY ==
[2022-06-27 18:02] VITALS: BP 153/97; PULSE 123; RESP 16; O2SAT 100
[2022-06-27 18:03] VITALS: BP 153/97; PULSE 125; RESP 16; TEMP 37; O2SAT 99; BMI 28.8
--- NOTE | 2022-06-27 18:27 | EKG12_ITS ---
Test Reason : CP Blood Pressure : / mmHG Vent. Rate : 109 BPM Atrial Rate : 109 BPM P-R Int : 160 ms QRS Dur : 098 ms QT Int : 340 ms P-R-T Axes : 049 059 035 degrees QTc Int : 457 ms Sinus tachycardia Incomplete right bundle branch block Borderline ECG Confirmed by KALI TAVAREZ, AVIS ([id number]), science editor JACQUELINE CHEN ([id number]) on 06/30/2022 2:02:04 PM Referred By: SPIKE Confirmed By:AVIS BASS MD
--- NOTE | 2022-06-27 19:15 | EDS_ITS ---
HPI History of Present Illness Chief Complaint: Palpitations Narrative Narrative: 32-year-old female presenting with palpitations. She states that tonight it started racing and lasted the whole way here which is about 20 minutes. She has a history of this over the last couple of weeks. She states this is a new thing. She states that at times she feels like she has a little bit of pressure in the left side of her chest and left side of her head only when her heart is racing. I suspected that she has SVT but they have not caught it on any monitors or EKGs yet. Patient states that she was here the other day and had a work-up for this and was ultimately normal except for potassium was a little bit low at 3.3. This was repleted. Patient had follow-up testing potassium was 2.5. Patient was seen by Kira Lopes at the cardiology office and is scheduled to do an event monitor for 30 days starting on the 6. She is on any medications for heart rate control. No history of atrial fibrillation. [facility] Medical History ADHD Alcohol abuse Alcohol use disorder, mild, in early remission Anemia Anxiety and depression ASCUS with positive high risk HPV Bipolar disorder, unspecified Generalized anxiety disorder Genital herpes History of meningitis History of multiple pulmonary nodules Palpitations PTSD (post-traumatic stress disorder) Tobacco use Varicosities of leg Home Medications meloxicam 15 mg tablet 15 tablet PO DAILY PRN Pain. #0 tabs 04/18/21 [Rx Last Taken 04/15/21 07:00] ondansetron 4 mg disintegrating tablet 4 mg PO Q8H PRN nausea and vomiting #10 tabs 03/18/22 [Rx Last Taken Unknown] aripiprazole 5 mg tablet 5 mg PO QHS 06/26/22 [History Last Taken Unknown] trazodone 100 mg tablet 100 mg PO QHS PRN sleep 06/26/22 [History Last Taken Unknown] Allergy/AdvReac Type Severity Reaction Status Date / Time azithromycin [From Zithromax] Allergy Rash Verified 06/27/22 18:03 amoxicillin AdvReac Vomiting Verified 06/27/22 18:03 red dye AdvReac Vomiting Verified 06/27/22 18:03 Family History Mother Anxiety and depression Bipolar disorder Polysubstance abuse Other Arthritis Cancer Heart disease Myocardial infarction Surgical History History of arthroscopic knee surgery History of tubal ligation History of varicose vein stripping Social History household members: spouse and family Smoking Status: Current every day smoker tobacco type: cigarettes and cigars quit status: has quit before alcohol intake: current alcohol intake frequency: 3 or more drinks per day Alcohol type: beer details: 4-6, 12 ounce beers daily since age 18. substance use type: marijuana caffeine: Yes Type: carbonated beverages Number of servings: 2, coffee and tea what type of physical activity do you participate in: none ROS ROS ED Constitutional Constitutional ED: Denies chills or fever(s) Eyes Eyes: Denies change in vision ENT ENT ED: Denies rhinorrhea or sore throat Cardiovascular Cardiovascular: Reports palpitations Respiratory/Chest Respiratory/Chest: Denies cough Gastrointestinal Gastrointestinal: Denies abdominal pain or constipation Genitourinary Genitourinary ED: Denies dysuria or hematuria Musculoskeletal Musculoskeletal: Denies arthralgias or back pain Integumentary Denies abscess or Abrasions Neurologic Neurologic: Denies headache(s) or paresthesias Psychiatric Psychiatric: Denies anxiety or depression EXAM Physical Exam Const Vital Signs: 06/27/22 18:03 06/27/22 18:02 06/27/22 18:05 Temperature 98.6 F Temperature Source Oral Pulse Rate 125 H 123 H Respiratory Rate 16 16 Respiratory Effort Normal Respiratory Pattern Normal Blood Pressure 153/97 H 153/97 H Blood Pressure Mean 115 115 Pulse Ox 99 100 Oxygen Delivery Method Room Air Room Air Positive well nourished General Appearance ED: NAD HEENT Reports moist mucous membranes Negative for trauma Eyes PERRL and EOMs intact bilaterally Neck no lymphadenopathy Chest Wall inspection of chest normal and palpation of chest normal Resp normal respiratory effort and clear to auscultation bilaterally Cardio regular rate and regular rhythm GI normal to inspection, nondistended, normoactive bowel sounds Extremity normal to inspection General Extremety ED: Negative for edema or tenderness General Extremity: Negative for edema Neuro oriented x3 and CN's II-XII intact bilaterally Sensorium / Orientation: alert Motor Exam: strength 5/5 throughout Psych mental status grossly normal Skin no rashes or lesions noted MDM MDM MDM Narrative Medical decision making narrative: Patient presenting with palpitations. She states her heart rate got up to [address] On arrival her heart rate was 125. As I entered the room her heart rate was 98. This did go up to 110 while I was talking to her. Heart and lung sound normal. She is a little bit hypertensive at 153/97 but her respirate 16, she is afebrile, O2 sats 99 to 100% on room air. While I am talking to her she feels like she is having palpitations and I looked at the monitor and she was going about 110 on the monitor. She did not appear to be any distress. Since he just recently had a work-up on the I will check basic labs to make sure that her electrolytes and CBC are normal. She is a slight leukocytosis of 14.8. Creatinine slightly bumped. Potassium 3.4. Nursing came to me and stated that the patient told her that she was drinking C4 energy drinks. States that she drinks typically 3-4 of these a day. She had 1 right before she started having the tachycardia. I believe this may be part of the problem with her tachycardia. Impression: 1. Palpitations 2. Excessive caffeine use Lab Data Attestation: I reviewed the patient's lab results. Labs: Laboratory Results - last 24 hr 06/27/22 06/27/22 06/27/22 19:23 19:23 19:40 WBC 14.8 H RBC 4.64 Hgb 13.5 Hct 40.5 MCV 87.3 MCH 29.1 MCHC 33.3 RDW Std Deviation 42.6 RDW Coeff of [place] 13.4 Plt Count 295 MPV 10.2 Immature Gran % (Auto) 0.400 Neut % (Auto) 59.9 Lymph % (Auto) 28.5 [place] % (Auto) 7.4 Eos % (Auto) 3.0 Baso % (Auto) 0.8 Absolute Neuts (auto) 8.9 H Absolute Lymphs (auto) 4.22 Nucleated RBC % 0 Sodium 140 Potassium 3.4 L Chloride 108 H Carbon Dioxide 25.0 Anion Gap 7 BUN 11 Creatinine 1.07 H Estim Creat Clear Calc 79.61 Est GFR (MDRD) Af Amer 77 Est GFR (MDRD) Non-Af 64 BUN/Creatinine Ratio 10.3 Glucose 121 H Calcium 9.0 Urine Color Straw Urine Clarity Clear Urine pH 7.0 Ur Specific [place] 1.005 Urine Protein Negative Urine Glucose (UA) Normal Urine Ketones Negative Urine Occult Blood 25 H Urine Nitrite Negative Urine Bilirubin Negative Urine Urobilinogen Normal Ur Leukocyte Esterase 25 H Discharge Plan Triage Chief Complaint: Palpitations ED Provider: Johnny Hood Dx/Rx/DC Orders Instructions: ED Palpitations Prescriptions: No Action aripiprazole 5 mg tablet 5 mg PO QHS Label Comments: Take 1 tablet by mouthEonce daily. In theEevening. trazodone 100 mg tablet 100 mg PO QHS PRN (Reason: sleep) Label Comments: if ambien does not work meloxicam 15 mg tablet 15 tablet PO DAILY PRN (Reason: Pain.) Qty: 0 0RF ondansetron 4 mg tablet,disintegrating 4 mg PO Q8H PRN (Reason: nausea and vomiting) Qty: 10 0RF Primary Care Provider: Rober Saba Referrals: Rober Saba, [Primary Care Provider] - Disposition Disposition: Home, Self Care
[2022-06-27 19:30] LABS: Absolute Lymphocyte Count 4.22 X10^3/uL (0.83-4.51); Absolute Neutrophil Count 8.9 X10^3/uL (2.0-7.7); Basophil# 0.12 X10^3/uL; Basophil% 0.8 % (0-1); Eosinophil# 0.45 X10^3/uL; Hematocrit 40.5 % (37-47); Hemoglobin 13.5 g/dL (12.0-15.0); Lymphocyte # 4.22 X10^3/ul (0.83-4.51); Lymphocyte % 28.5 % (19-41); Mean Corp Hgb Conc 33.3 g/dL (32-36); Mean Corpuscular Hgb 29.1 pg (27.0-32.0); Mean Corpuscular Volume 87.3 fL (81-99); Mean Platelet Vol. 10.2 fl (6.2-12.0); Monocyte# 1.09 X10^3/uL; Monocyte% 7.4 % (0-10); NRBC Flagged by Analyzer 0 % (0-5); Neutrophil # 8.88 X10^3/uL (2.7-7.7); Neutrophil % 59.9 % (47-70); Platelet Count 295 K/mm3 (150-450); RBC Distribution Width CV 13.4 % (11.6-14.6); RBC Distribution Width SD 42.6 fl (35.1-43.9); Red Blood Count 4.64 M/mm3 (4.2-5.4); White Blood Count 14.8 K/mm3 (4.4-11.0)
[2022-06-27 19:43] LABS: Anion Gap 7 (5-15); BUN 11 mg/dL (7-18); BUN/Creat Ratio 10.3 RATIO (10-20); Chloride 108 mmol/L (98-107); Creatinine, Serum 1.07 mg/dL (0.55-1.02); EST Glomerular Filtration Rate 64 mL/min (>60); Est Glom Filt Rate - Afr Amer 77 mL/min (>60); Estimated Creatinine Clearance 79.61 ml/min; Glucose 121 mg/dL (74-106); Potassium 3.4 mmol/L (3.5-5.1); Sodium Level 140 mmol/L (136-145)
[2022-06-27 20:10] LABS: Bacteria 0 SEEN /hpf (None Seen); Mucous, Urine 0 SEEN /hpf (<or=2+)
[2022-06-27 20:32] LABS: Color, Urine Straw (Yellow); Glucose, Dipstick Normal (Normal); Ketone-Dipstick Negative (Negative); Leukocyte Esterase-Dipstick 25 /ul (Negative); Nitrite-Dipstick Negative (Negative); Occult Blood-Urine 25 /ul (Negative); Protein-Dipstick Negative (Negative); Specific Gravity, Urine 1.005 (1.002-1.030); Urine Bilirubin Dipstick Negative (Negative); Urine Clarity Clear (Clear); Urine Urobilinogen Normal (Normal)
[2022-06-27 21:22] VITALS: PULSE 95
[2022-06-27 21:24] LABS: Red Blood Cells-Urine 0-5 SEEN /hpf (0-5); Squamous Epithelial Cells - UA 0-5 SEEN /hpf (5-10); White Blood Cells 0-5 SEEN /hpf (0-5)
== END 2022-06-27 21:22 | disposition home or self-care (01) ==
PROVIDERS: Emergency Provider Student in an Organized Health Care Education/Training Program; PCP Student in an Organized Health Care Education/Training Program; Visit Provider Student in an Organized Health Care Education/Training Program
DX: R00.2 Palpitations (principal); F12.90 Cannabis use, unspecified, uncomplicated; F17.210 Nicotine dependence, cigarettes, uncomplicated; F41.9 Anxiety disorder, unspecified; F32.A Depression, unspecified; Z79.899 Other long term (current) drug therapy
CPT/HCPCS: 80048; 81001; 85025; 93005; 99283; A4216

== ENCOUNTER → 2022-07-26 | Outpatient (CLI) | payer OTHER, MEDICAID, SELFPAY ==
--- NOTE | 2022-07-26 09:46 | ECHOD_ITS ---
Reason For Study: PALPITATIONS Procedure This was a 2D Doppler, Color Flow transthoracic echocardiogram. Exam performed in department. Left Ventricle Normal LV size. Left ventricular systolic function is normal. The estimated ejection fraction is 55 %. No evidence for diastolic dysfunction. No regional wall motion abnormalities noted. Right Ventricle Normal RV size. Normal systolic function. Atria Normal left atrium. Normal right atrium. Mitral Valve Normal mitral valve. Tricuspid Valve Normal tricuspid valve. Aortic Valve Normal aortic valve. Trisinus/trileaflet aortic valve. Pulmonic Valve Normal pulmonic valve. Great Vessels Normal aortic root. The pulmonary artery is normal size. Normal inferior vena cava. Pericardium/Pleural No pericardial effusion. MMode/2D Measurements & Calculations LVIDd: 5.5 cm IVSd: 0.95 cm Ao root diam: 3.4 cm LVIDs: 3.9 cm LVPWd: 1.0 cm RVDd: 3.8 cm FS: 29.3 % LAV(MOD-bp): 57.0 ml LVAd ap4: 31.9 cm2 SV(MOD-sp4): 58.5 ml LAV(MOD-bp) Indexed: 28.6 ml/m2 LVLd ap4: 7.9 cm LAV(MOD-sp2): 66.2 ml EDV(MOD-sp4): 104.7 ml LAV(MOD-sp4): 44.4 ml EDV(sp4-el): 109.4 ml LVAs ap4: 19.0 cm2 LVLs ap4: 6.3 cm ESV(MOD-sp4): 46.2 ml ESV(sp4-el): 48.6 ml EF(MOD-sp4): 55.9 % EF(sp4-el): 55.6 % SV(sp4-el): 60.8 ml LA A4 area: 18.4 cm2 LA dimension(2D): 3.9 cm RA A4 area: 15.0 cm2 Time Measurements MV dec time: 0.16 sec Doppler Measurements & Calculations MV E max nico: 80.4 cm/sec Lat Peak E' Nico: 16.5 cm/sec Med Peak E' Nico: 11.9 cm/sec MV A max nico: 61.5 cm/sec E/E' lat: 4.9 E/E' med: 6.8 MV E/A: 1.3 MV V2 max: 88.1 cm/sec Ao V2 max: 138.4 cm/sec MV max P.1 mmHg MV dec slope: 524.1 cm/sec2 Ao max P.7 mmHg MV V2 mean: 59.4 cm/sec Ao V2 mean: 100.6 cm/sec MV mean P.5 mmHg Ao mean P.5 mmHg MV V2 VTI: 30.1 cm Ao V2 VTI: 31.7 cm LV V1 max: 104.3 cm/sec PA V2 max: 90.6 cm/sec LV V1 max P.4 mmHg PA V2 mean: 71.9 cm/sec LV V1 mean P.6 mmHg LV V1 mean: 76.2 cm/sec LV V1 VTI: 22.5 cm ECHO/Echo Complete Interpretation Summary Normal LV size. Left ventricular systolic function is normal. The estimated ejection fraction is 55 %. No evidence for diastolic dysfunction. Structurally normal valves. Ordering Physician: Kira Lopes Referring Physician: Kira Lopes Performed By: Charlee Alexandra RCS
== END | disposition home or self-care (01) ==
LOC: CVS 09:46
PROVIDERS: PCP Student in an Organized Health Care Education/Training Program; Referring Provider Physician Assistant Medical; Visit Provider Physician Assistant Medical
DX: R00.2 Palpitations (principal)
CPT/HCPCS: 93306

== ENCOUNTER 2022-09-26 14:39 | Emergency (ER) | payer OTHER, MEDICAID, SELFPAY ==
[2022-09-26 14:41] VITALS: BP 146/86; PULSE 106; RESP 14; TEMP 36.4; O2SAT 99; BMI 27.6
[2022-09-26 14:47] VITALS: PULSE 115
--- NOTE | 2022-09-26 14:54 | EKG12_ITS ---
Test Reason : PALP Blood Pressure : / mmHG Vent. Rate : 101 BPM Atrial Rate : 101 BPM P-R Int : 136 ms QRS Dur : 088 ms QT Int : 348 ms P-R-T Axes : 040 026 037 degrees QTc Int : 451 ms Sinus tachycardia Low voltage QRS (Limb Leads) Incomplete right bundle branch block Confirmed by KALI TAVAREZ, AVIS ([id number]), editorial cartoonist JACQUELINE CHEN ([id number]) on 09/27/2022 11:15:39 AM Referred By: Confirmed By:AVIS BASS MD
--- NOTE | 2022-09-26 14:55 | ED.VIS.CHEST ---
HPI History of Present Illness Chief Complaint: Palpitations Informant: patient Onset/Context/Timing Onset: Today and Hours Activity at onset: sudden Timing: Continuous Quality: Positive for Dull Current Severity: Mild Maximum Severity: Mild Worsened By: Nothing Relieved By: Nothing Associated Symptoms: Positive for Nausea, Vomiting, Diaphoresis, Lightheadedness and Palpitations; Negative for Cough, Fever or Acid Reflux Narrative Narrative: 32-year-old female with history of palpitations that they have never been able to specifically diagnose other than sinus tachycardia and PVCs. Today she was at work since she was not feeling quite well. She was taken around noon she started having accelerated heart rate and came in to be evaluated. She had 1 episode of nausea and vomiting. No fever. When she gets this accelerated heart rate she gets some chest discomfort with it. This is not new. She has had it multiple times in the past. She has been on home outpatient cardiac monitoring which they have never caught any specific dysrhythmia. She has a history of PTSD. Prior Similar Symptoms: Yes Recent Illness/Hospitalization: No CVD Risk Factors: Positive for Family History 1' </=55 and Smoking; Negative for Hypertension, Diabetes or Hypercholesterolemia PE Risk Factors: Negative for Recent Travel/Surgery, Recent Immobilization, Prior DVT or PE, Cancer or OCP + Smoking + >/=35 TAD Risk Factors: Negative for Marfan's Syndrome, Hypertension or Family History [facility] Medical History ADHD Alcohol abuse Alcohol use disorder, mild, in early remission Anemia Anxiety and depression ASCUS with positive high risk HPV Bipolar disorder, unspecified Generalized anxiety disorder Genital herpes History of meningitis History of multiple pulmonary nodules Palpitations PTSD (post-traumatic stress disorder) Tobacco use Varicosities of leg Allergy/AdvReac Type Severity Reaction Status Date / Time azithromycin [From Zithromax] Allergy Rash Verified 09/26/22 14:41 amoxicillin AdvReac Vomiting Verified 09/26/22 14:41 red dye AdvReac Vomiting Verified 09/26/22 14:41 Family History Mother Anxiety and depression Bipolar disorder Polysubstance abuse Other Arthritis Cancer Heart disease Myocardial infarction Surgical History History of arthroscopic knee surgery History of tubal ligation History of varicose vein stripping Social History household members: spouse and family Smoking Status: Current every day smoker tobacco type: cigarettes and cigars quit status: has quit before alcohol intake: current alcohol intake frequency: 3 or more drinks per day Alcohol type: beer details: 4-6, 12 ounce beers daily since age 18. substance use type: marijuana caffeine: Yes Type: carbonated beverages Number of servings: 2, coffee and tea what type of physical activity do you participate in: none ROS ROS ED ROS Narrative Palpitations. Review of Systems ROS Unobtainable: Denies due to encephalopathy Constitutional Constitutional ED: Denies chills or fever(s) Eyes Eyes: Reports none ENT ENT ED: Denies ear pain Cardiovascular Cardiovascular: Reports as per HPI, chest pain, palpitations and racing heartbeat Respiratory/Chest Respiratory/Chest: Reports cough Gastrointestinal Gastrointestinal: Reports nausea and vomiting; Denies abdominal pain Genitourinary Genitourinary ED: Denies dysuria or hematuria Musculoskeletal Musculoskeletal: Denies arthralgias Integumentary Denies abscess Neurologic Neurologic: Denies headache(s) Psychiatric Psychiatric: Reports anxiety Endocrine Endocrinology: Denies cold intolerance Hematologic/Lymphatic Hematologic/Lymphatic: Denies easy bleeding Allergic/Immunologic Allergic/Immunologic ED: Denies mouth swelling or tongue swelling EXAM Physical Exam Narrative Exam Narrative: 32-year-old female anxious. Vital signs stable heart rates around 110. Pulse ox 9 9% room air no hypoxia. H EENT exam unremarkable. Neck nontender no JVD no lymphadenopathy. Lungs clear to auscultation bilaterally. Heart tachycardic rate about 110 no murmur. Chest wall nontender. Abdomen soft nontender. Moving all 4 extremities. Calves are nontender without edema or cords. Neurologically she is awake alert with no focal motor deficits. Patient is anxious. Const Vital Signs: 09/26/22 14:41 09/26/22 14:47 Temperature 97.6 F L Temperature Source Temporal Pulse Rate 106 H 115 H Respiratory Rate 14 Blood Pressure 146/86 H Blood Pressure Mean 106 Pulse Ox 99 Oxygen Delivery Method Room Air Positive well nourished and well developed; Negative for obese, cachectic, contractures or unkempt General Appearance ED: well developed and NAD; Negative for unkempt, cachectic, contractures or pallor Nutritional Appearance: Negative for cachectic or obese HEENT Reports moist mucous membranes; Denies dry mucous membranes normocephalic and atraumatic; Negative for trauma or tenderness Mouth ED: No dry mucous membranes Mouth: No dry mucous membranes Eyes PERRL and EOMs intact bilaterally General Eye ED: Negative for pale conjunctiva or scleral icterus Neck no lymphadenopathy, supple and no JVD General: Negative for tenderness Chest Wall inspection of chest normal and palpation of chest normal Chest: Negative for tenderness Resp normal respiratory effort and clear to auscultation bilaterally Effort and Inspection: Negative for respiratory distress Auscultation: Negative for rales, rhonchi or wheezes Cardio regular rhythm, S1 normal heart sound, S2 normal heart sound and no murmurs; Negative for regular rate Rate: tachycardic; Negative for bradycardia Peripheral Pulses: pulses 2+ throughout GI normal to inspection, nondistended, normoactive bowel sounds, soft to palpation, non-tender, non-distended and no masses Back/Spine no CVA tenderness and no thoracic nor lumbar tenderness General Back: Negative for CVA tenderness Cervical Spine: Negative for cervical spine tenderness Extremity normal to inspection General Extremety ED: Negative for edema or pulses abnormal General Extremity: Negative for edema or pulses abnormal Neuro oriented x3, CN's II-XII intact bilaterally and no sensory deficits noted Sensorium / Orientation: awake, alert, oriented to person, oriented to place and oriented to time; Negative for confused, lethargic, stuporous or other Motor Exam: strength 5/5 throughout Psych Appearance: Negative for unkempt Attitude: No agitated Mood & Affect: anxious; Negative for depressed or tearful Skin no rashes or lesions noted and no wounds General Skin Exam: Negative for jaundice or pallor Rashes: No rashes noted Trauma: Negative for abrasion or laceration MDM MDM MDM Narrative Medical decision making narrative: 32-year-old with palpitations. She has had these extensively worked up in the past including CTAs which have been negative for PEs. She is also worn outpatient 30-day cardiac monitoring which just showed PVCs and sinus tachycardia. They have never found any specific dysrhythmia. Repeat exam patient is doing well at 3:40 PM heart rates in the 90s. Patient is clinically doing well. She and I went over all of her test results. She has had this evaluated in the past. She will follow-up for possible outpatient monitoring again. Lab Data Attestation: I reviewed the patient's lab results. Lab results narrative: CBC normal. White count of 10. H&H of 13 and 41. Electrolytes unremarkable gap of 7. Normal BUN/creatinine. Glucose of 110. Troponin 6. Labs: Laboratory Results - last 24 hr 09/26/22 09/26/22 15:00 15:00 WBC 10.7 RBC 4.86 Hgb 13.8 Hct 41.1 MCV 84.6 MCH 28.4 MCHC 33.6 RDW Std Deviation 42.4 RDW Coeff of Ludwin 13.5 Plt Count 228 MPV 10.0 Immature Gran % (Auto) 0.300 Neut % (Auto) 71.3 H Lymph % (Auto) 20.1 Rooks % (Auto) 6.2 Eos % (Auto) 1.5 Baso % (Auto) 0.6 Absolute Neuts (auto) 7.6 Absolute Lymphs (auto) 2.14 Nucleated RBC % 0 Sodium 139 Potassium 3.7 Chloride 107 Carbon Dioxide 25.0 Anion Gap 7 BUN 9 Creatinine 0.84 Estim Creat Clear Calc 101.41 Est GFR (MDRD) Af Amer 101 Est GFR (MDRD) Non-Af 84 BUN/Creatinine Ratio 10.7 Glucose 110 H Calcium 9.1 Troponin I High Sens 6 Radiography Chest X-Ray - ED: 1 View, Read by ED Physician, Heart, Lungs, Mediastinum, Bony Structures and No Acute Disease Diagnostic Testing: Chest x-ray, portable, single view interpreted by myself shows no acute abnormality. Normal cardiac silhouette. Normal lungs. No infiltrates. No pulmonary edema. Rhythm Strip Rhythm Strip: Sinus Tach Rate: 101 Ectopy: None EKG Initial EKG: Attestation: I personally reviewed and interpreted this EKG as follows: Interpretation: Sinus Rhythm, No Acute Injury Pattern and Sinus Tachycardia Comments: Sinus tachycardia rate of 101. No acute signs of NM or ischemia. Incomplete right bundle branch block. Unchanged from prior EKG from June of this year. Prior EKG tracings: available for review Prior: Unchanged Discharge Plan Triage Chief Complaint: Palpitations ED Provider: Yahir Ragland Dx/Rx/DC Orders Clinical Impression: Heart palpitations, Sinus tachycardia Instructions: ED Palpitations Primary Care Provider: Rober Saba Referrals: Rober Saba, DO [Primary Care Provider] - As soon as possible Activity Restrictions/Additional Instructions: All your labs, EKG and chest x-ray today were unremarkable. Call and follow-up with your primary care physician to see if they want to do recurrent cardiac outpatient monitoring. Disposition Disposition: Home, Self Care
[2022-09-26 15:09] LABS: Absolute Lymphocyte Count 2.14 X10^3/uL (0.83-4.51); Absolute Neutrophil Count 7.6 X10^3/uL (2.0-7.7); Basophil# 0.06 X10^3/uL; Basophil% 0.6 % (0-1); Eosinophil# 0.16 X10^3/uL; Eosinophils% 1.5 % (0-5); Hematocrit 41.1 % (37-47); Hemoglobin 13.8 g/dL (12.0-15.0); Lymphocyte # 2.14 X10^3/ul (0.83-4.51); Lymphocyte % 20.1 % (19-41); Mean Corp Hgb Conc 33.6 g/dL (32-36); Mean Corpuscular Hgb 28.4 pg (27.0-32.0); Mean Corpuscular Volume 84.6 fL (81-99); Monocyte# 0.66 X10^3/uL; Monocyte% 6.2 % (0-10); NRBC Flagged by Analyzer 0 % (0-5); Neutrophil # 7.62 X10^3/uL (2.7-7.7); Neutrophil % 71.3 % (47-70); Platelet Count 228 K/mm3 (150-450); RBC Distribution Width CV 13.5 % (11.6-14.6); RBC Distribution Width SD 42.4 fl (35.1-43.9); Red Blood Count 4.86 M/mm3 (4.2-5.4); White Blood Count 10.7 K/mm3 (4.4-11.0)
--- NOTE | 2022-09-26 15:20 | RAD_ITS ---
STUDY: X-RAY CHEST REASON FOR EXAM: Female, 32 years old. Chest pain TECHNIQUE: Single AP portable view of the chest. COMPARISON: Comparison is made with prior study dated 03/18/2022. FINDINGS: EKG electrodes are seen. The lungs are clear and expanded. There is no demonstrated pleural abnormality. Normal size heart. Normal mediastinum and kiki. Normal visualized pulmonary arteries. Normal visualized aortic arch and descending thoracic aorta. Normal visualized thoracic spine. Normal visualized ribs, clavicles, and shoulders. There is no demonstrated abnormality of the visualized soft tissue structures of the upper abdomen. RAD/Chest 1 View (Portable) IMPRESSION: Normal x-ray examination of the chest. Electronically Signed: Wing Sanders MD at 15:38 EST ,
[2022-09-26 15:26] LABS: Anion Gap 7 (5-15); BUN 9 mg/dL (7-18); BUN/Creat Ratio 10.7 RATIO (10-20); Calcium,Total 9.1 mg/dL (8.5-10.1); Chloride 107 mmol/L (98-107); Creatinine, Serum 0.84 mg/dL (0.55-1.02); EST Glomerular Filtration Rate 84 mL/min (>60); Est Glom Filt Rate - Afr Amer 101 mL/min (>60); Estimated Creatinine Clearance 101.41 ml/min; Glucose 110 mg/dL (74-106); Potassium 3.7 mmol/L (3.5-5.1); Sodium Level 139 mmol/L (136-145); Troponin-I HS 6 pg/mL (3.0-54.0)
[2022-09-26 15:52] VITALS: BP 131/92; PULSE 112; O2SAT 98
== END 2022-09-26 16:07 | disposition home or self-care (01) ==
PROVIDERS: Emergency Provider Emergency Medicine; PCP Student in an Organized Health Care Education/Training Program; Visit Provider Emergency Medicine
DX: R00.2 Palpitations (principal); R00.0 Tachycardia, unspecified; F12.90 Cannabis use, unspecified, uncomplicated; F17.210 Nicotine dependence, cigarettes, uncomplicated
CPT/HCPCS: 71045; 80048; 84484; 85025; 93005; 99285

== ENCOUNTER 2023-03-09 16:58 | Emergency (ER) | payer OTHER, MEDICAID, SELFPAY ==
[2023-03-09 16:59] VITALS: BP 135/84; PULSE 134; RESP 20; TEMP 37.5; O2SAT 100; BMI 28.6
[2023-03-09 17:05] VITALS: O2SAT 99
--- NOTE | 2023-03-09 17:13 | EKG12_ITS ---
Test Reason : Blood Pressure : / mmHG Vent. Rate : 125 BPM Atrial Rate : 125 BPM P-R Int : 152 ms QRS Dur : 090 ms QT Int : 316 ms P-R-T Axes : 043 054 031 degrees QTc Int : 456 ms Sinus tachycardia Otherwise normal ECG Confirmed by TREVIN TAVAREZ, ROBERT ([id number]), editor dictionary JACQUELINE CHEN ([id number]) on 03/12/2023 11:06:16 AM Referred By: Gardenia Currie Confirmed By:ROBERT ZHONG MD
--- NOTE | 2023-03-09 17:14 | EDS_ITS ---
HPI History of Present Illness Chief Complaint: Cold Sx Informant: patient Onset/Context/Timing Onset: Today Context: Gradual Onset Narrative Narrative: Patient presents with URI symptoms. She states developed some slight congestion and cough late last night progressed throughout the day today at work. Temperature was 100.4 prior to arrival in the ER. She reports cough with occasional rare thin sputum. Does have some chest heaviness. [facility] Medical History ADHD Alcohol abuse Alcohol use disorder, mild, in early remission Anemia Anxiety and depression ASCUS with positive high risk HPV Bipolar disorder, unspecified Contact with and (suspected) exposure to other viral communicable diseases Generalized anxiety disorder Genital herpes History of meningitis History of multiple pulmonary nodules Palpitations PTSD (post-traumatic stress disorder) Tobacco use URI (upper respiratory infection) Varicosities of leg Home Medications gabapentin 300 mg capsule mg 03/09/23 [History Last Taken Unknown] oseltamivir 75 mg capsule (Tamiflu) 75 mg PO BID 5 days #10 caps 03/09/23 [Rx Last Taken Unknown] quetiapine 200 mg tablet (Seroquel) 200 mg PO DAILY 03/09/23 [History Last Taken Unknown] Allergy/AdvReac Type Severity Reaction Status Date / Time azithromycin [From Zithromax] Allergy Rash Verified 03/09/23 17:01 amoxicillin AdvReac Vomiting Verified 03/09/23 17:01 red dye AdvReac Vomiting Verified 03/09/23 17:01 Family History Mother Anxiety and depression Bipolar disorder Polysubstance abuse Other Arthritis Cancer Heart disease Myocardial infarction Surgical History History of arthroscopic knee surgery History of tubal ligation History of varicose vein stripping Social History household members: spouse and family Smoking Status: Current every day smoker tobacco type: cigarettes and cigars quit status: has quit before alcohol intake: current alcohol intake frequency: 3 or more drinks per day Alcohol type: beer details: 4-6, 12 ounce beers daily since age 18. substance use type: marijuana caffeine: Yes Type: carbonated beverages Number of servings: 2, coffee and tea what type of physical activity do you participate in: none ROS ROS ED Constitutional Constitutional ED: Reports fever(s); Denies chills Eyes Eyes: Denies change in vision or discharge from eye(s) ENT ENT ED: Reports other Details: Congestion ; Denies discharge from eye(s), rhinorrhea or sore throat Cardiovascular Cardiovascular: Reports chest pain; Denies palpitations Respiratory/Chest Respiratory/Chest: Reports cough Gastrointestinal Gastrointestinal: Denies abdominal pain, diarrhea, nausea or vomiting Genitourinary Genitourinary ED: Denies dysuria Musculoskeletal Musculoskeletal: Denies back pain or extremity pain Integumentary Denies Abrasions or rash Neurologic Neurologic: Denies headache(s) or weakness Allergic/Immunologic Allergic/Immunologic ED: Denies lip swelling or urticaria EXAM Physical Exam Const Vital Signs: 03/09/23 16:59 03/09/23 17:05 Temperature 99.5 F H Temperature Source Temporal Pulse Rate 134 H Respiratory Rate 20 H Respiratory Effort Normal Respiratory Pattern Normal Blood Pressure 135/84 H Blood Pressure Mean 101 Pulse Ox 100 Oxygen Delivery Method Room Air Room Air Positive well nourished and well developed General Appearance ED: well developed HEENT Reports normocephalic and head/scalp atraumatic Eyes PERRL and EOMs intact bilaterally Neck supple Chest Wall inspection of chest normal and palpation of chest normal Resp normal respiratory effort and clear to auscultation bilaterally Cardio regular rhythm Rate: tachycardic GI normal to inspection, nondistended, normoactive bowel sounds Palpation: soft Extremity normal to inspection Neuro oriented x3 and no sensory deficits noted Sensorium / Orientation: alert Motor Exam: strength 5/5 throughout Psych mental status grossly normal Skin no rashes or lesions noted MDM MDM MDM Narrative Medical decision making narrative: Patient placed on diagnostic cardiac sonographer. EKG obtained to evaluate for cardiac arrhythmia/ischemia. Labwork obtained to evaluate for leukocytosis, anemia, and electrolyte derangement. Chest x-ray obtained to evaluate for acute lung pathology, cardiac size, or mediastinal abnormality. Lab Data Attestation: I reviewed the patient's lab results. Labs: Laboratory Results - last 24 hr 03/09/23 03/09/23 03/09/23 17:25 17:25 17:25 WBC 12.8 H RBC 4.71 Hgb 13.8 Hct 40.3 MCV 85.6 MCH 29.3 MCHC 34.2 RDW Std Deviation 42.4 RDW Coeff of Ludwin 13.5 Plt Count 244 MPV 9.7 Immature Gran % (Auto) 0.300 Neut % (Auto) 66.7 Lymph % (Auto) 21.0 Taylor % (Auto) 9.2 Eos % (Auto) 1.9 Baso % (Auto) 0.9 Absolute Neuts (auto) 8.5 H Absolute Lymphs (auto) 2.68 Nucleated RBC % 0 D-Dimer Quant (PE/DVT) 0.51 H* Sodium 137 Potassium 3.6 Chloride 108 H Carbon Dioxide 23.0 Anion Gap 6 BUN 10 Creatinine 0.96 Estim Creat Clear Calc 88.74 Est GFR (MDRD) Af Amer 87 Est GFR (MDRD) Non-Af 72 BUN/Creatinine Ratio 10.4 Glucose 107 H Calcium 9.0 Troponin I High Sens 3 Radiography Diagnostic Testing: Clinical Impression(s) from Imaging Studies Chest X-Ray 03/09/23 17:33 IMPRESSION: No acute cardiopulmonary disease or major interval change. Electronically Signed: Braden Sheridan DO at 18:03 EDT Reading Location ID and State: [facility] / [place] Tel [phone], Service support , Chest CTA 03/09/23 18:51 IMPRESSION: 1. Normal CTA chest examination, without a demonstrated pulmonary embolism or arterial dissection. 2. Gallstones without acute cholecystitis. AIDOC was utilized to assist in identifying pertinent positive findings in this case. Electronically Signed: Braden Sheridan DO at 19:38 EDT Reading Location ID and State: [facility] / [place] Tel [phone], Service support , EKG Initial EKG: Attestation: I personally reviewed and interpreted this EKG as follows: Interpretation: Sinus Tachycardia (Sinus tach at 125 with no acute ischemia.) Treatment and Re-Evaluation :: CBC was a white count of 12.8 with no left shift. Chemistry studies u nremarkable. Troponin normal at 3. D-dimer slightly elevated at 0.51. COVID test is negative but influenza test is positive for flu B. Chest x-ray per my interpretation reveals no evidence of infiltrate. CTA of the chest reveals no evidence of pulmonary embolism or dissection. Test results are discussed with the patient. At this time her heart rate is in the high 90s. She will be prescribed Tamiflu for influenza. She states this is the third time she has tested positive for flu B in the last year. I will refer her to infectious disease for follow-up given this. Discharge Plan Triage Chief Complaint: Cold Sx ED Provider: Gardenia Currie Dx/Rx/DC Orders Clinical Impression: Influenza B Instructions: ED Influenza (Adult) Prescriptions: New oseltamivir [Tamiflu] 75 mg capsule 75 mg PO BID 5 Days Qty: 10 0RF No Action quetiapine [Seroquel] 200 mg Tablet 200 mg PO DAILY gabapentin 300 mg capsule Label Comments: TAKE 1 CAPSULE BY MOUTH 3iTIMES A DAY Primary Care Provider: Rober Saba Referrals: Rober Saba DO [Primary Care Provider] - 1-2 Weeks Rudi Martin MD [Med Staff - Active Staff] - As Needed Disposition Disposition: Home, Self Care
[2023-03-09] MEDS: 0.9% Normal Saline 1,000 ML 1000 ML IV (17:24)
--- NOTE | 2023-03-09 17:33 | RAD_ITS ---
STUDY: X-RAY CHEST REASON FOR EXAM: Female, 32 years old. Cough. TECHNIQUE: Single AP portable view of the chest. COMPARISON: September 26, 2022 FINDINGS: The lungs are clear and expanded. There is no demonstrated pleural abnormality. Normal size heart. Normal mediastinum and kiki. Normal visualized pulmonary arteries. Normal visualized aortic arch and descending thoracic aorta. Normal visualized thoracic spine. Normal visualized ribs, clavicles, and shoulders. There is no demonstrated abnormality of the visualized soft tissue structures of the upper abdomen. RAD/Chest 1 View (Portable) IMPRESSION: No acute cardiopulmonary disease or major interval change. Electronically Signed: Braden Sheridan DO at 18:03 EDT ,
[2023-03-09 17:59] LABS: Absolute Lymphocyte Count 2.68 X10^3/uL (0.83-4.51); Absolute Neutrophil Count 8.5 X10^3/uL (2.0-7.7); Basophil# 0.12 X10^3/uL; Basophil% 0.9 % (0-1); Eosinophil# 0.24 X10^3/uL; Eosinophils% 1.9 % (0-5); Hematocrit 40.3 % (37-47); Hemoglobin 13.8 g/dL (12.0-15.0); Lymphocyte # 2.68 X10^3/ul (0.83-4.51); Mean Corp Hgb Conc 34.2 g/dL (32-36); Mean Corpuscular Hgb 29.3 pg (27.0-32.0); Mean Corpuscular Volume 85.6 fL (81-99); Mean Platelet Vol. 9.7 fl (6.2-12.0); Monocyte# 1.17 X10^3/uL; Monocyte% 9.2 % (0-10); NRBC Flagged by Analyzer 0 % (0-5); Neutrophil % 66.7 % (47-70); Platelet Count 244 K/mm3 (150-450); RBC Distribution Width CV 13.5 % (11.6-14.6); RBC Distribution Width SD 42.4 fl (35.1-43.9); Red Blood Count 4.71 M/mm3 (4.2-5.4); White Blood Count 12.8 K/mm3 (4.4-11.0)
[2023-03-09 18:02] LABS: Anion Gap 6 (5-15); BUN 10 mg/dL (7-18); BUN/Creat Ratio 10.4 RATIO (10-20); Chloride 108 mmol/L (98-107); Creatinine, Serum 0.96 mg/dL (0.55-1.02); EST Glomerular Filtration Rate 72 mL/min (>60); Est Glom Filt Rate - Afr Amer 87 mL/min (>60); Estimated Creatinine Clearance 88.74 ml/min; Glucose 107 mg/dL (74-106); Potassium 3.6 mmol/L (3.5-5.1); Sodium Level 137 mmol/L (136-145); Troponin-I HS 3 pg/mL (3.0-54.0)
[2023-03-09 18:18] LABS: D-Dimer Quantitative (DVT/PE) 0.51 FEU/ug/m (0.27-0.49)
--- NOTE | 2023-03-09 18:51 | CT_ITS ---
STUDY: CTA CHEST REASON FOR EXAM: Female, 32 years old. Tachycardia and elevated d-dimer. RADIATION DOSAGE (If Supplied By Facility): CTDIvol = ( 14.75 ) mGy, DLP = ( 443.05 ) mGycm TECHNIQUE: The examination was performed with the intravenous administration of IV 100mL [id number]-370. Post-processing of the angiographic images was performed, with multiplanar reformation and 3D reconstruction. Individualized dose optimization techniques were used for this CT. COMPARISON: Chest, March 09, 2023. CTA of the chest, June 16, 2022. FINDINGS: Normal enhancement of the main pulmonary artery and right and left pulmonary arteries. Normal enhancement of the bilateral peripheral pulmonary arteries. There is no demonstrated pulmonary embolism. Normal thoracic aorta and visualized great vessels. There is no demonstrated aortic dissection. Normal heart and pericardium. No coronary artery calcifications Normal mediastinum. Normal hilar regions. Normal visualized trachea and bronchi. The lungs are well expanded. Normal pulmonary parenchyma. Normal pleura. Normal chest wall structures. Normal osseous structures. Gallstones without acute cholecystitis. The abdomen is otherwise unremarkable CT/CTA Chest W/WO Contrast IMPRESSION: 1. Normal CTA chest examination, without a demonstrated pulmonary embolism or arterial dissection. 2. Gallstones without acute cholecystitis. AIDOC was utilized to assist in identifying pertinent positive findings in this case. Electronically Signed: Braden Sheridan DO at 19:38 EDT Reading Location ID and State: [address] [place] [address] Tel [phone], Service support ,
[2023-03-09] MEDS: Oseltamivir Phosphate 75 MG Capsule PO (20:11)
[2023-03-09 20:14] VITALS: RESP 18
== END 2023-03-09 20:16 | disposition home or self-care (01) ==
PROVIDERS: Emergency Provider Emergency Medicine; PCP Student in an Organized Health Care Education/Training Program; Referring Provider Emergency Medicine; Visit Provider Emergency Medicine
DX: J10.1 Influenza due to other identified influenza virus with other respiratory manifestations (principal); F17.210 Nicotine dependence, cigarettes, uncomplicated; F12.90 Cannabis use, unspecified, uncomplicated; Z79.899 Other long term (current) drug therapy
CPT/HCPCS: 71045; 71275; 80048; 84484; 85025; 85379; 87428; 93005; 96360; 99285; J7030; Q9967; A4216

== ENCOUNTER 2023-05-30 10:29 | Emergency (ER) | payer OTHER, SELFPAY ==
[2023-05-30 10:30] VITALS: BP 143/80; PULSE 98; RESP 16; TEMP 36.5; O2SAT 100; BMI 29.5
--- NOTE | 2023-05-30 12:55 | EX.ED.DYSGE1 ---
HPI History of Present Illness Chief Complaint: Cold Sx Narrative Narrative: Patient is sent here from her doctor's office to rule out influenza. 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 Patient is already had influenza B twice this year. Patient states she is having signs and symptoms of influenza again. Patient states she is not , she takes no medications daily. No recent sick contacts. Patient was sent home from work to get a influenza or COVID test. Patient does not have 80$ to go to the urgent care to get tested, so she came to the ER. Patient's had cold like flulike in sinus symptoms since Sunday. Patient says that she is already tested positive twice this year for influenza B, she has not follow-up with PCP or infectious disease as recommended. Patient has no chest pain or shortness of breath. Positive nausea, no vomiting, no diarrhea, no bowel or bladder changes, patient states she is not . [facility] Medical History ADHD Alcohol abuse Alcohol use disorder, mild, in early remission Anemia Anxiety and depression ASCUS with positive high risk HPV Bipolar disorder, unspecified Contact with and (suspected) exposure to other viral communicable diseases Generalized anxiety disorder Genital herpes History of meningitis History of multiple pulmonary nodules Palpitations PTSD (post-traumatic stress disorder) Tobacco use URI (upper respiratory infection) Varicosities of leg Home Medications gabapentin 300 mg capsule mg 03/09/23 [History Last Taken Unknown] oseltamivir 75 mg capsule (Tamiflu) 75 mg PO BID 5 days #10 caps 03/09/23 [Rx Last Taken Unknown] quetiapine 200 mg tablet (Seroquel) 200 mg PO DAILY 03/09/23 [History Last Taken Unknown] alprazolam 0.25 mg tablet mg 05/30/23 [History Last Taken Unknown] ondansetron 4 mg disintegrating tablet 4 mg PO Q8H PRN PRN Nausea #10 tabs 05/30/23 [Rx Last Taken Unknown] Allergy/AdvReac Type Severity Reaction Status Date / Time azithromycin [From Zithromax] Allergy Rash Verified 05/30/23 10:32 amoxicillin AdvReac Vomiting Verified 05/30/23 10:32 red dye AdvReac Vomiting Verified 05/30/23 10:32 Family History Mother Anxiety and depression Bipolar disorder Polysubstance abuse Other Arthritis Cancer Heart disease Myocardial infarction Surgical History History of arthroscopic knee surgery History of tubal ligation History of varicose vein stripping Social History household members: spouse and family Smoking Status: Current every day smoker tobacco type: cigarettes and cigars quit status: has quit before alcohol intake: current alcohol intake frequency: 3 or more drinks per day Alcohol type: beer details: 4-6, 12 ounce beers daily since age 18. substance use type: marijuana caffeine: Yes Type: carbonated beverages Number of servings: 2, coffee and tea what type of physical activity do you participate in: none ROS ROS ED ROS Narrative REVIEW OF SYSTEMS: Unless otherwise stated in this report the patient's positive and negative responses for review of systems for constitutional, eyes, ENT, cardiovascular, respiratory, gastrointestinal, neurological, , musculoskeletal, and integument systems and related systems to the presenting problem are either stated in the history of present illness or were not pertinent or were negative for the symptoms and/or complaints related to the presenting medical problem. EXAM Physical Exam Narrative Exam Narrative: Vital signs reviewed and patient is not hypoxic. General: The patient appears well and in no apparent distress. Patient is resting comfortably on cart. Not toxic, lethargic, or listless. Skin: Warm, dry, no pallor noted. There is no rash noted. Head: Normocephalic, atraumatic Eye: Normal conjunctiva, no drainage, EOMI. PERRL. Ears, Nose, Mouth, and Throat: oral mucosa is moist. Nares patent. Mouth without vesicles. Mild clear drainage noted to the posterior pharynx. Cardiovascular: Regular Rate and Rhythm, no murmurs, gallops, or rubs Respiratory: Patient is in no distress, no accessory muscle use, lungs are clear to auscultation, no wheezing, rales or rhonchi Back: non-tender, no CVA tenderness bilaterally to percussion. NO CTLS midline or paraspinal tenderness to palpation. GI: Soft, no tenderness Musculoskeletal: The patient has full range of motion of all extremities and joints with no difficulty. Patient has no motor, no sensory deficits. Neurological: A&O x4, normal speech, no focal neurological deficits. Psychiatric: Cooperative Const Vital Signs: 05/30/23 10:30 05/30/23 10:55 Temperature 97.7 F L Temperature Source Temporal Pulse Rate 98 Respiratory Rate 16 Respiratory Depth Normal Respiratory Pattern Normal Blood Pressure 143/80 H Blood Pressure Mean 101 Pulse Ox 100 Oxygen Delivery Method Room Air Room Air [facility] Lab Data Lab results narrative: Patient had COVID and influenza testing again. Patient was going to be discharged, she stated that she could be discharged since she waited lengthy amount of time secondary to ER volume in critical patients. Patient stated that she could look up the results of her test on MY [facility]. Patient does not want Tamiflu. Patient knows to treat her symptoms at home whether it is COVID or influenza. Work note was given. Patient was given prescription for Zofran as well. No questions at discharge. Patient understands delays in care, thankful for testing today. Patient again was recommended to have a PCP and infectious disease, especially in light if she continues to test positive for influenza B, she may be a carrier. Discharge Plan Triage Chief Complaint: Cold Sx ED Provider: Alvin Hernandez Dx/Rx/DC Orders Clinical Impression: URI (upper respiratory infection), Flu-like symptoms, Nausea Instructions: ED Influenza (Adult), ED URI, Viral, No Abx (Adult), ED Symptoms With Uncertain Cause Prescriptions: New ondansetron [ondansetron] 4 mg tablet,disintegrating 4 mg PO Q8H PRN PRN (Reason: Nausea) Qty: 10 0RF No Action quetiapine [Seroquel] 200 mg Tablet 200 mg PO DAILY gabapentin 300 mg capsule Patient Comments: TAKE 1 CAPSULE BY MOUTH 3iTIMES A DAY oseltamivir [Tamiflu] 75 mg capsule 75 mg PO BID 5 Days Qty: 10 0RF alprazolam 0.25 mg tablet Patient Comments: Take 1 tablet by mouth atObedtime as needed for up to 30 days. Stand Alone Forms: ED Work / School Excuse Primary Care Provider: Rober Saba Referrals: Rober Saba DO [Primary Care Provider] - Activity Restrictions/Additional Instructions: Continue [id number] medications of DayQuil, NyQuil, Flonase. Continue Tylenol Motrin. We have discussed Tamiflu at bedside and you do not wish to take that. Use nausea medication as needed. Work note has been given. I highly recommend he follow-up with infectious disease physician as discussed at bedside and as you discussed with Dr. Matthews on last visit as well. Follow-up with PCP for any other recommendations for Disposition Disposition: Home, Self Care Discharge Date/Time: 05/30/23 13:18
--- NOTE | 2023-05-30 13:16 | ED.RN ---
RN GOING TO D/C PATIENT WHEN PATIENT NOT FOUND IN ROOM.
== END 2023-05-30 13:18 | disposition home or self-care (01) ==
PROVIDERS: Emergency Provider Emergency Medicine; PCP Student in an Organized Health Care Education/Training Program; Visit Provider Emergency Medicine
DX: J06.9 Acute upper respiratory infection, unspecified (principal); R11.0 Nausea; F17.210 Nicotine dependence, cigarettes, uncomplicated; F12.90 Cannabis use, unspecified, uncomplicated
CPT/HCPCS: 87426; 87804; 99283

== ENCOUNTER 2023-08-24 12:26 | Outpatient (RCR) | payer OTHER, SELFPAY ==
--- NOTE | 2023-08-24 13:20 | HP.PTEVAL_ITS ---
Patient's Visit Information Visit Information Visit Information: ALPHONSO JARRETT is a 33 year old F referred to Physical Therapy by BHAVIN ACEVES with a diagnosis of L hip joint disorder, R hip joint disorder. Date of Evaluation: 08/24/23 Physical Therapist: Rohit Peoples, DPT, OCS, CSCS Visit Plan Frequency: 1x/Week Duration: 4-6 Weeks Plan: weekly x 3-6 for progression of home hip strength adn stretch adn activitiy modification due to high deductible patient choice. Given SLR x 3, clamshells/rev clamshells, banded bridges GTB 3x10 daily. 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 Next session for WB hip strength and HS stretch to HEP and f/u as needed. Subjective Subjective: R hip surgery 1.5 yrs ago. and then got weak as she stopped her exercises. 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 Was worse on work days. 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 hard to get out of chair sometimes. L hip may need fixed but will have MRI if PT does not help. L hip pain is groin , r hip is lateral. X rays on R and bone looks good. 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 Getting up is tough at times with pain. Enjoys crafting refurbishing table and can do that typically. basic ADLS are fine. Bending adn getting on knees and standing up hurts. Pain L hip: Pain Intensity (Out of 10): 0 Pain Intensity Range: 0 and 6 R hip: Pain Intensity (Out of 10): 0 Pain Intensity Range: 0 and 7 Comment: bone pain lateral Objective Objective: Walks normal and I into PT without gait deviations. Trasnfers I. Steps reciprocal without rail without pain today. AROM B hips WNL and some pain at end range if IR B R >L. + FADDIR slightly pain trasniently B - hip scouring. HS -20 90/90 test B other muscles WFL. AROM knees and ankles WFL and good flexibility. reflexes 2/3 patella adn achilles B Sensation WNL grossly in LE to lgiht touch. strength hips 4-/5 abd and ext without pain, 4- flexion B hips. knee flexion and ext 4+. ankles 4+ Core strength is flex adn ext 4 Balance/Special Test Scores Lower Extremity Functional Score: 56 Goals Goal 1:: I appropr HEP for hip strength adn HS stretching Goal Time Frame: 4-6 Weeks Goal 2:: Pt notice 50% improvement in overall pain level to 2/10 at worst Goal Time Frame: 4-6 Weeks Goal 3:: LEFS 64 Goal Time Frame: 4-6 Weeks Rehabilitation Potential Physical Therapy Diagnosis: B hip pain and stiffness which causes pain with certain functions Rehabilitation Potential: Good Anticipated Interventions Patient/Client Instruction: Educate patient on: Condition and Plan of Care For the Purpose of:: To decrease pain, To improve nutrient delivery to tissue and To improve muscle performance and motor function Therapeutic Exercise to Include: Strength training and Flexibilty training For the Purpose of:: To decrease pain, To improve nutrient delivery to tissue and To improve muscle performance and motor function Text: Thank you for the opportunity to evaluate your patient. For Medicare and Medicare HMO plans, please review the plan of care and approve it. It will need to be FAXED BACK to us at [phone] for Medicare purposes. For Medicare only, by signing this I certify the plan of care. Please let me know if there are questions or concerns regarding this plan of care. Physician Sig nature: Date:
--- NOTE | 2023-10-23 11:15 | HP.PT.NRP ---
Patient Information Patient Information: ALPHONSO JARRETT was seen in my office for initial evaluation on 08/24/23. The following Plan of Care was established for this patient: POC Established Initial Frequency: 1x/Week Initial Duration: 4-6 Weeks Anticipated Interventions Patient/Client Instruction: Educate patient on: Condition and Plan of Care For the Purpose of:: To decrease pain, To improve nutrient delivery to tissue and To improve muscle performance and motor function Therapeutic Exercise to Include: Strength training and Flexibilty training For the Purpose of:: To decrease pain, To improve nutrient delivery to tissue and To improve muscle performance and motor function Last Seen Last Seen: This patient was last seen in our office 08/24/23. Pertinent comments regarding their Physical therapy will appear below: Pt seen for IE and POC established. Pt did not attend any further visits. At this point, it has been over 6 weeks and I will discontinue due to nonattendance. At this point I will be discontinuing this patient from physical therapy. I would be happy to see this patient again in the future if found appropriate by the physician. Thank you! Rohit Peoples, DPT, OCS, CSCS Balance/Gait/Functional tests Balance/Special Test Scores Lower Extremity Functional Score: 56
== END 2023-08-24 19:00 | disposition home or self-care (01) ==
LOC: PT 12:26
PROVIDERS: PCP Nurse Practitioner Adult Health; Visit Provider Physician Assistant Medical
DX: M25.852 Other specified joint disorders, left hip (principal); M24.151 Other articular cartilage disorders, right hip; M25.851 Other specified joint disorders, right hip
CPT/HCPCS: 97110; 97161

== ENCOUNTER → 2023-09-11 | Outpatient (CLI) | payer OTHER, SELFPAY ==
[2023-09-11 11:00] LABS: Cholesterol 213 mg/dL (200); Glucose 101 mg/dL (74-106); High Density Lipoprotein 48 mg/dL; Triglycerides 116 mg/dL; Very Low Density Lipoprotein 23 mg/dL (5-40)
== END | disposition home or self-care (01) ==
LOC: MTLAB 09:25
PROVIDERS: PCP Nurse Practitioner Adult Health; Visit Provider Nurse Practitioner Adult Health
DX: Z13.6 Encounter for screening for cardiovascular disorders (principal); Z13.1 Encounter for screening for diabetes mellitus
CPT/HCPCS: 36415; 80061; 82947

== ENCOUNTER 2023-09-12 12:42 | Emergency (ER) | payer OTHER, SELFPAY ==
[2023-09-12 12:43] VITALS: BP 142/86; PULSE 115; RESP 18; TEMP 36.3; O2SAT 100; BMI 28.8
--- NOTE | 2023-09-12 13:11 | RAD_ITS ---
STUDY: X-RAY CHEST REASON FOR EXAM: Female, 33 years old. Chest pain. TECHNIQUE: Single frontal view of the chest. COMPARISON: March 09, 2023. FINDINGS: The lungs are clear and expanded. There is no demonstrated pleural abnormality. Normal size heart. Normal mediastinum and kiki. Normal visualized pulmonary arteries. Normal visualized aortic arch and descending thoracic aorta. Normal visualized thoracic spine. Normal visualized ribs, clavicles, and shoulders. No abnormality of the visualized soft tissue structures of the upper abdomen. RAD/Chest 1 View (Portable) IMPRESSION: No interval change. Normal x-ray examination of the chest. Electronically Signed: Everardo Hurtado MD at 13:55 EDT ,
[2023-09-12 13:35] VITALS: BP 140/87; PULSE 86; RESP 25; O2SAT 98; O2SAT 99
[2023-09-12 13:44] LABS: Absolute Lymphocyte Count 2.14 X10^3/uL (0.83-4.51); Absolute Neutrophil Count 8.6 X10^3/uL (2.0-7.7); Basophil# 0.07 X10^3/uL; Basophil% 0.6 % (0-1); Eosinophil# 0.18 X10^3/uL; Eosinophils% 1.5 % (0-5); Hematocrit 41.4 % (37-47); Hemoglobin 13.7 g/dL (12.0-15.0); Lymphocyte # 2.14 X10^3/ul (0.83-4.51); Lymphocyte % 18.2 % (19-41); Mean Corp Hgb Conc 33.1 g/dL (32-36); Mean Corpuscular Hgb 28.7 pg (27.0-32.0); Mean Corpuscular Volume 86.8 fL (81-99); Mean Platelet Vol. 9.7 fl (6.2-12.0); Monocyte# 0.72 X10^3/uL; Monocyte% 6.1 % (0-10); NRBC Flagged by Analyzer 0 % (0-5); Neutrophil # 8.63 X10^3/uL (2.7-7.7); Neutrophil % 73.3 % (47-70); Platelet Count 249 K/mm3 (150-450); RBC Distribution Width CV 13.4 % (11.6-14.6); RBC Distribution Width SD 42.5 fl (35.1-43.9); Red Blood Count 4.77 M/mm3 (4.2-5.4); White Blood Count 11.8 K/mm3 (4.4-11.0)
[2023-09-12 14:00] VITALS: BP 130/84
[2023-09-12 14:03] LABS: Anion Gap 4 (5-15); BUN 9 mg/dL (7-18); BUN/Creat Ratio 10.1 RATIO (10-20); Calcium,Total 8.9 mg/dL (8.5-10.1); Chloride 110 mmol/L (98-107); Creatinine, Serum 0.89 mg/dL (0.55-1.02); EST Glomerular Filtration Rate 78 mL/min (>60); Est Glom Filt Rate - Afr Amer 95 mL/min (>60); Estimated Creatinine Clearance 94.84 ml/min; Glucose 102 mg/dL (74-106); Potassium 3.6 mmol/L (3.5-5.1); Sodium Level 140 mmol/L (136-145); Troponin-I HS (w/2H Reflex) 6 pg/mL (3.0-54.0)
[2023-09-12 15:00] VITALS: BP 122/77
--- NOTE | 2023-09-12 15:00 | ED.VIS.CHEST ---
HPI History of Present Illness Chief Complaint: Chest Pain Narrative Narrative: 33-year-old female presenting with chest pressure. She states its across the center of her chest. Sometimes she gets a sharp stabbing pain in the left side of her chest. She she states she does have a history of chest pressure and did call the heart group who recommended she come to the ER. Patient states yesterday she had chest pressure all day. Today has been intermittent. She is not having any shortness of breath. No fevers, chills. She states that last time she had this chest pressure she had COVID and influenza and had a high D-dimer and ended up having a CTA which was negative of her chest which was negative. [facility] Medical History ADHD Alcohol abuse Alcohol use disorder, mild, in early remission Anemia Anxiety and depression ASCUS with positive high risk HPV Bipolar disorder, unspecified Contact with and (suspected) exposure to other viral communicable diseases Generalized anxiety disorder Genital herpes History of meningitis History of multiple pulmonary nodules Palpitations PTSD (post-traumatic stress disorder) Tobacco use URI (upper respiratory infection) Varicosities of leg Home Medications gabapentin 300 mg capsule 300 mg PO TID 03/09/23 [History Last Taken Unknown] quetiapine 200 mg tablet (Seroquel) 200 mg PO DAILY 03/09/23 [History Last Taken Unknown] Allergy/AdvReac Type Severity Reaction Status Date / Time azithromycin [From Zithromax] Allergy Rash Verified 09/12/23 12:45 amoxicillin AdvReac Vomiting Verified 09/12/23 12:45 red dye AdvReac Vomiting Verified 09/12/23 12:45 Family History Mother Anxiety and depression Bipolar disorder Polysubstance abuse Other Arthritis Cancer Heart disease Myocardial infarction Surgical History History of arthroscopic knee surgery History of tubal ligation History of varicose vein stripping Social History household members: spouse and family Smoking Status: Current every day smoker tobacco type: cigarettes and cigars quit status: has quit before alcohol intake: current alcohol intake frequency: 3 or more drinks per day Alcohol type: beer details: 4-6, 12 ounce beers daily since age 18. substance use type: marijuana caffeine: Yes Type: carbonated beverages Number of servings: 2, coffee and tea what type of physical activity do you participate in: none ROS ROS ED Constitutional Constitutional ED: Denies chills, fever(s) or sweats Eyes Eyes: Denies blurry vision or change in vision ENT ENT ED: Denies ear pain or sore throat Cardiovascular Cardiovascular: Reports as per HPI and chest pain; Denies palpitations or racing heartbeat Respiratory/Chest Respiratory/Chest: Denies cough, dyspnea or sputum Gastrointestinal Gastrointestinal: Denies abdominal pain, constipation, diarrhea, nausea or vomiting Genitourinary Genitourinary ED: Denies dysuria, hematuria or urinary frequency Musculoskeletal Musculoskeletal: Denies arthralgias, myalgias or neck pain Integumentary Denies abscess, Abrasions or rash Neurologic Neurologic: Denies headache(s), paresthesias or weakness Psychiatric Psychiatric: Denies anxiety, depression, suicidal ideation or suicidal thoughts Endocrine Endocrinology: Denies polydipsia or polyuria EXAM Physical Exam Const Vital Signs: 09/12/23 12:43 09/12/23 13:35 09/12/23 13:35 Temperature 97.4 F L Temperature Source Temporal Pulse Rate 115 H 86 Respiratory Rate 18 25 H Respiratory Effort Blood Pressure 142/86 H 140/87 H Blood Pressure Mean 104 104 Pulse Ox 100 99 98 Oxygen Delivery Method Room Air Room Air Room Air 09/12/23 13:35 09/12/23 14:00 09/12/23 15:00 Temperature Temperature Source Pulse Rate Respiratory Rate Respiratory Effort Normal Non-Labored Blood Pressure 130/84 H 122/77 H Blood Pressure Mean 99 92 Pulse Ox Oxygen Delivery Method Positive well nourished General Appearance ED: NAD HEENT Reports moist mucous membranes normocephalic Eyes PERRL and EOMs intact bilaterally Chest Wall inspection of chest normal and palpation of chest normal Resp normal respiratory effort and clear to auscultation bilaterally Auscultation: Negative for rales, rhonchi or wheezes Cardio regular rhythm Rate: tachycardic GI normal to inspection, nondistended, normoactive bowel sounds Neuro oriented x3 and CN's II-XII intact bilaterally Sensorium / Orientation: awake Motor Exam: strength 5/5 throughout Psych mental status grossly normal Skin no rashes or lesions noted and no wounds Heart Score History: Slightly/Non-Suspicious ECG: Normal Age: </= 45 years Risk Factors: 1 or 2 Risk Factors Troponin: </= Normal Limit Score: 1 MDM MDM MDM Narrative Medical decision making narrative: Presenting with chest pain which has had the past. She states that she had pain most of the day today. She called cardiology and was sent to the ER for evaluation. Differential includes ACS, pneumonia, PE, pneumothorax, anxiety, costochondritis, anemia, dehydration, electrolyte abnormalities, dysrhythmia. EKG was obtained and shows a sinus tachycardia without any evidence of ST elevation or depression or ectopy. Chest x-ray my interpretation shows no acute process. CBC and BMP were unremarkable. High-sensitivity troponin 6 initially and then less than 3 at 2 hours. Patient ultimately had a negative work-up and declined any analgesia in the ER. D-dimer was negative. I believe the patient is safe for discharge home I doubt this is cardiac in nature. Patient to return precautions. Impression: 1. Chest pain 2. Tachycardia Lab Data Attestation: I reviewed the patient's lab results. Labs: Laboratory Results - last 24 hr 09/12/23 09/12/23 13:24 15:33 WBC 11.8 H RBC 4.77 Hgb 13.7 Hct 41.4 MCV 86.8 MCH 28.7 MCHC 33.1 RDW Std Deviation 42.5 RDW Coeff of Ludwin 13.4 Plt Count 249 MPV 9.7 Immature Gran % (Auto) 0.300 Neut % (Auto) 73.3 H Lymph % (Auto) 18.2 L White % (Auto) 6.1 Eos % (Auto) 1.5 Baso % (Auto) 0.6 Absolute Neuts (auto) 8.6 H Absolute Lymphs (auto) 2.14 Nucleated RBC % 0 D-Dimer Quant (PE/DVT) 0.48 Sodium 140 Potassium 3.6 Chloride 110 H Carbon Dioxide 26.0 Anion Gap 4 L BUN 9 Creatinine 0.89 Estim Creat Clear Calc 94.84 Est GFR (MDRD) Af Amer 95 Est GFR (MDRD) Non-Af 78 BUN/Creatinine Ratio 10.1 Glucose 102 Calcium 8.9 Troponin I High Sens 6 < 3 L Radiography Diagnostic Testing: Clinical Impression(s) from Imaging Studies Chest X-Ray 09/12/23 13:11 IMPRESSION: No interval change. Normal x-ray examination of the chest. Electronically Signed: Everardo Hurtado MD at 13:55 EDT , Discharge Plan Triage Chief Complaint: Chest Pain ED Provider: Johnny Hood Dx/Rx/DC Orders Instructions: ED Chest Pain, Noncardiac Prescriptions: No Action quetiapine [Seroquel] 200 mg Tablet 200 mg PO DAILY gabapentin 300 mg capsule 300 mg PO TID Patient Comments: TAKE 1 CAPSULE BY MOUTH 3iTIMES A DAY Primary Care Provider: MARTINEZ OSMAN Referrals: MARTINEZ OSMAN CRNP [Primary Care Provider] - Disposition Disposition: Home, Self Care Discharge Date/Time: 09/12/23 16:35
[2023-09-12 15:24] LABS: D-Dimer Quantitative (DVT/PE) 0.48 FEU/ug/m (0.27-0.49)
[2023-09-12 15:32] LABS: Reflex Troponin-HS? (from REC) Y
[2023-09-12 16:00] LABS: Troponin-I HS < 3 pg/mL (3.0-54.0)
== END 2023-09-12 16:35 | disposition home or self-care (01) ==
PROVIDERS: Emergency Provider Student in an Organized Health Care Education/Training Program; PCP Nurse Practitioner Adult Health; Visit Provider Student in an Organized Health Care Education/Training Program
DX: R07.9 Chest pain, unspecified (principal); R00.0 Tachycardia, unspecified; F17.210 Nicotine dependence, cigarettes, uncomplicated; F12.90 Cannabis use, unspecified, uncomplicated
CPT/HCPCS: 71045; 80048; 84484; 85025; 85379; 93005; 99284; A4216

== ENCOUNTER → 2023-10-16 | Outpatient (CLI) | payer OTHER, SELFPAY ==
[2023-10-16 12:14] LABS: Absolute Lymphocyte Count 2.99 X10^3/uL (0.83-4.51); Absolute Neutrophil Count 6.7 X10^3/uL (2.0-7.7); Basophil# 0.09 X10^3/uL; Basophil% 0.8 % (0-1); Eosinophil# 0.16 X10^3/uL; Eosinophils% 1.5 % (0-5); Hematocrit 41.8 % (37-47); Hemoglobin 13.8 g/dL (12.0-15.0); Lymphocyte # 2.99 X10^3/ul (0.83-4.51); Lymphocyte % 27.7 % (19-41); Mean Corpuscular Hgb 29.4 pg (27.0-32.0); Mean Corpuscular Volume 89.1 fL (81-99); Mean Platelet Vol. 10.3 fl (6.2-12.0); Monocyte# 0.85 X10^3/uL; Monocyte% 7.9 % (0-10); NRBC Flagged by Analyzer 0 % (0-5); Neutrophil # 6.68 X10^3/uL (2.7-7.7); Neutrophil % 61.7 % (47-70); Platelet Count 257 K/mm3 (150-450); RBC Distribution Width CV 13.7 % (11.6-14.6); RBC Distribution Width SD 44.4 fl (35.1-43.9); Red Blood Count 4.69 M/mm3 (4.2-5.4); White Blood Count 10.8 K/mm3 (4.4-11.0)
[2023-10-16 12:23] LABS: Vitamin D,25 Hydroxy 18.3 ng/mL
[2023-10-16 12:26] LABS: AST(SGOT) 12 U/L (15-37); Alanine Aminotransfer ALT/SGPT 20 U/L (13-56); Albumin, Serum 3.8 g/dL (3.2-5.0); Alkaline Phosphatase 47 U/L (45-117); Anion Gap 7 (5-15); BUN 8 mg/dL (7-18); BUN/Creat Ratio 9.1 RATIO (10-20); Calcium,Total 8.7 mg/dL (8.5-10.1); Chloride 106 mmol/L (98-107); Creatinine, Serum 0.88 mg/dL (0.55-1.02); EST Glomerular Filtration Rate 79 mL/min (>60); Est Glom Filt Rate - Afr Amer 96 mL/min (>60); Globulin 3.7 g/dL (2.2-4.2); Glucose 104 mg/dL (74-106); Potassium 3.8 mmol/L (3.5-5.1); Protein, Total 7.5 g/dL (6.4-8.2); Sodium Level 140 mmol/L (136-145); Thyroid Stim Hormone (TSH) 1.37 uIU/mL (0.358-3.74)
== END | disposition home or self-care (01) ==
LOC: MTLAB 10:00
PROVIDERS: PCP Nurse Practitioner Adult Health; Referring Provider Family Medicine; Visit Provider Family Medicine
DX: R42 Dizziness and giddiness (principal); R07.89 Other chest pain
CPT/HCPCS: 36415; 80053; 82306; 84443; 85025

== ENCOUNTER → 2023-10-26 | Outpatient (CLI) | payer OTHER, SELFPAY | END | disposition home or self-care (01) | LOC: PSN 12:09 | PROVIDERS: PCP Nurse Practitioner Adult Health; Referring Provider Nurse Practitioner Gerontology; Visit Provider Nurse Practitioner Gerontology | DX: R00.2 Palpitations (principal) | CPT/HCPCS: 93225; 93226 ==

== ENCOUNTER 2023-11-02 16:37 | Emergency (ER) | payer OTHER, SELFPAY ==
[2023-11-02 16:38] VITALS: BP 141/90; PULSE 108; RESP 14; TEMP 36.7; O2SAT 100; BMI 29.0
--- NOTE | 2023-11-02 17:16 | EX.ED.DYSGE1 ---
HPI <KODAK Alvarenga - Last Filed: 11/02/23 18:06> History of Present Illness Chief Complaint: Lower Extremity Injury Narrative Narrative: Patient is a 33-year-old female with no significant medical history presents to the emergency department with complaints of pain to the right knee. Patient was at a [employer], was bowling, she twisted her right knee and now has significant pain. Patient dates that the swelling is getting worse, she had difficulty straightening it all the way as well as flexing it. She is here for evaluation. She denies any other injury. She denies any history of injury to that knee [facility] <KODAK Alvarenga - Last Filed: 11/02/23 18:06> [facility] Medical History ADHD Alcohol abuse Alcohol use disorder, mild, in early remission Anemia Anxiety and depression ASCUS with positive high risk HPV Bipolar disorder, unspecified Contact with and (suspected) exposure to other viral communicable diseases Generalized anxiety disorder Genital herpes History of meningitis History of multiple pulmonary nodules Palpitations PTSD (post-traumatic stress disorder) Tobacco use URI (upper respiratory infection) Varicosities of leg Home Medications gabapentin 300 mg capsule 300 mg PO TID 03/09/23 [History Last Taken Unknown] quetiapine 200 mg tablet (Seroquel) 200 mg PO DAILY 03/09/23 [History Last Taken Unknown] hydrocodone-acetaminophen 5-325mg 5mg-325mg 1 tab PO Q4H PRN PRN Pain 3 days #10 TABLETS 11/02/23 [Rx Last Taken Unknown] ibuprofen 600 mg tablet 600 mg PO Q6H PRN PRN pain 3 days #20 TABLETS 11/02/23 [Rx Last Taken Unknown] Allergy/AdvReac Type Severity Reaction Status Date / Time azithromycin [From Zithromax] Allergy Rash Verified 11/02/23 16:37 amoxicillin AdvReac Vomiting Verified 11/02/23 16:37 red dye AdvReac Vomiting Verified 11/02/23 16:37 Family History Mother Anxiety and depression Bipolar disorder Polysubstance abuse Other Arthritis Cancer Heart disease Myocardial infarction Surgical History History of arthroscopic knee surgery History of tubal ligation History of varicose vein stripping Social History household members: spouse and family Smoking Status: Current every day smoker tobacco type: cigarettes and cigars quit status: has quit before alcohol intake: current alcohol intake frequency: 3 or more drinks per day Alcohol type: beer details: 4-6, 12 ounce beers daily since age 18. substance use type: marijuana caffeine: Yes Type: carbonated beverages Number of servings: 2, coffee and tea what type of physical activity do you participate in: none ROS <KODAK Alvarenga - Last Filed: 11/02/23 18:06> ROS ED ROS Narrative Constitutional: Negative for fever, chills, weight loss, weakness Eyes: Negative for vision loss, vision change, double vision ENT: Negative for any sore throat, ear pain, congestion Cardiovascular: Negative for any chest pain, tightness, palpitations Respiratory: Negative for any cough, sputum production, hemoptysis, dyspnea, dyspnea on exertion, orthopnea Gastrointestinal: Negative for any abdominal pain, nausea, vomiting, diarrhea, constipation, blood in stool, blood in vomit : Negative for any urinary frequency, dysuria, retention, blood in urine Muscle skeletal: Negative for any myalgias, arthralgias, neck pain, back pain. Positive for right knee pain Neurological: Negative for any headache, syncope, numbness or tingling, dizziness Skin: Negative for any rashes, lumps, itching, abrasions, lacerations Psychiatric: Negative for any depression, anxiety, stress, suicidal ideation, homicidal ideation Hematologic: Negative for any easy bruising, excessive bruising, easy bleeding Allergies: Negative for any eczema, hives, rash EXAM <KODAK Alvarenga - Last Filed: 11/02/23 18:06> Physical Exam Narrative Exam Narrative: Vital signs reviewed. Extremities: No peripheral edema, no signs of gross trauma or deformity. Patient does have some swelling along the knee, intact extensor mechanism. Patient minimal pain with abduction or abduction, however flexion extension does cause significant pain to the inferior patella. Patient does have pain on palpation. Neuro: Cranial nerves II through XII intact, no focal neurological deficits. Skin: Clean dry and intact with no rash, purpura, petechiae, vesicles or pustules. Backs/flank: No CVA tenderness, no midline spinal tenderness, no deformity. Psych: Normal mood and affect. No SI, HI or acute psychosis. Const Vital Signs: 11/02/23 16:38 11/02/23 18:16 Temperature 98.1 F Temperature Source Temporal Pulse Rate 108 H 72 Respiratory Rate 14 15 Blood Pressure 141/90 H 134/75 H Blood Pressure Mean 107 94 Pulse Ox 100 98 Oxygen Delivery Method Room Air Positive well nourished and well developed General Appearance ED: well developed <Dr. Gem Maldonado, DO - Last Filed: 11/02/23 22:47> Physical Exam Const Vital Signs: 11/02/23 16:38 11/02/23 18:16 Temperature 98.1 F Temperature Source Temporal Pulse Rate 108 H 72 Respiratory Rate 14 15 Blood Pressure 141/90 H 134/75 H Blood Pressure Mean 107 94 Pulse Ox 100 98 Oxygen Delivery Method Room Air MDM <KODAK Alvarenga - Last Filed: 11/02/23 18:06> MDM Radiography Diagnostic Testing: Clinical Impression(s) from Imaging Studies Knee X-Ray 11/02/23 17:28 IMPRESSION: Negative right knee x-rays. Electronically Signed: Qamar Alfred MD at 17:51 EST , Treatment and Re-Evaluation :: Patient appears to be in moderate discomfort secondary to right knee pain. Presenting to the emergency department after knee injury while bowling. Differential diagnosis includes patellar fracture, knee dislocation, joint effusion, knee sprain. Patient received 4 view x-rays of the right knee. All radiologic examinations were read, reviewed by the emergency department attending. From these reads, a plan of care will be put in place. Patient's right knee x-rays interpreted by ER physician shows negative for any fracture or dislocation. Patient will be placed in a knee immobilizer, crutches with instruction. She will be given a prescription for pain medicine as well as anti-inflammatories. She will have a referral to orthopedics. She is instructed to ice, elevate. She instructed return for any worsening symptoms. All questions were answered, patient stable for discharge <Dr. Gem Maldonado DO - Last Filed: 11/02/23 22:47> [facility] MDM Narrative Medical decision making narrative: I have personally performed a face to face assessment of the patient and have reviewed the MAHI Note. I performed a substantive portion of the visit including all aspects of the following. My baron findings include: History is [patient presents with injury to the right knee that occurred while bowling today. Patient states that when she released the ball her knee twisted and felt a crack in her knee. Patient able to bear some weight but painful. Denies any other injuries.] Exam is [HEENT-PERRLA, EOMI. Cranial nerves II through XII grossly intact. TMs clear. Mucous membranes moist. No adenopathy. Cardiovascular-regular rate and rhythm without murmur or ectopy Lungs-clear to auscultation, chest wall stable without crepitus or subcu emphysema Abdomen-normoactive bowel sounds, soft, nontender, no rebound or rigidity, no peritoneal signs. Extremities-intact x 4. Right knee-no effusion noted. Ligamentously stable. Neurovascular intact distally. Patient has diffuse tenderness palpation about the knee joint.] Medical Decison Making [ X-rays of the right knee that were negative. She will be placed in a knee immobilizer and given crutches. She will be referred to orthopedics for follow-up. She will be given a prescription for pain medicine for a few days.] Other additions or changes: [None] Radiography Diagnostic Testing: Clinical Impression(s) from Imaging Studies Knee X-Ray 11/02/23 17:28 IMPRESSION: Negative right knee x-rays. Electronically Signed: Qamar Alfred MD at 17:51 EST , New x-rays of the right knee obtained interpreted by myself as no evidence of fracture or dislocation. Radiology in agreement. Discharge Plan Triage Chief Complaint: Lower Extremity Injury ED Midlevel Provider: Angel Sullivan ED Provider: Gem Maldonado Dx/Rx/DC Orders Clinical Impression: Right knee sprain Instructions: ED Knee Sprain Prescriptions: New hydrocodone-acetaminophen 5-325 mg tablet 1 tab PO Q4H PRN PRN (Reason: Pain) 3 Days Qty: 10 0RF ibuprofen 600 mg tablet 600 mg PO Q6H PRN PRN (Reason: pain) 3 Days Qty: 20 0RF No Action quetiapine [Seroquel] 200 mg Tablet 200 mg PO DAILY gabapentin 300 mg capsule 300 mg PO TID Patient Comments: TAKE 1 CAPSULE BY MOUTH 3iTIMES A DAY Primary Care Provider: MARTINEZ OSMAN Referrals: Alex Conteh MD [Med Staff - Active Staff] - MARTINEZ OSMAN CRNP [Primary Care Provider] - Angel Sullivan NP-C [Emergency Midlevel Provider] - Activity Restrictions/Additional Instructions: Use the brace, crutches. Follow-up with orthopedics. Use the pain medicine, anti-inflammatories as needed. Ensure that you ice and elevate Disposition Disposition: Home, Self Care Discharge Date/Time: 11/02/23 18:51
[2023-11-02] MEDS: HYDROcodone Bitartrate/Apap 5/325 Tablet PO (17:18)
--- NOTE | 2023-11-02 17:28 | RAD_ITS ---
EXAM: XR RIGHT KNEE COMPLETE, 4 OR MORE VIEWS CLINICAL INDICATION: knee pain TECHNIQUE: Four or more views of the right knee. COMPARISON: No relevant prior studies available. FINDINGS: BONES/JOINTS: Unremarkable. No acute fracture. No subluxation. Normal alignment. Preservation of the joint space. No sclerotic or destructive changes observed. SOFT TISSUES: Unremarkable. No soft tissue swelling or gas. No radiopaque foreign body. RAD/Knee 4 or More Views IMPRESSION: Negative right knee x-rays. Electronically Signed: Qamar Alfred MD at 17:51 EST ,
[2023-11-02 18:16] VITALS: BP 134/75; PULSE 72; RESP 15; O2SAT 98
== END 2023-11-02 18:51 | disposition home or self-care (01) ==
LOC: ED 18:25
PROVIDERS: Emergency Provider Emergency Medicine; PCP Nurse Practitioner Adult Health; Visit Provider Emergency Medicine
DX: S83.91XA Sprain of unspecified site of right knee, initial encounter (principal); F12.90 Cannabis use, unspecified, uncomplicated; F17.210 Nicotine dependence, cigarettes, uncomplicated; X50.1XXA Overexertion from prolonged static or awkward postures, initial encounter
CPT/HCPCS: 73564; 99284

== ENCOUNTER → 2023-11-07 | Outpatient (CLI) | payer OTHER, SELFPAY ==
--- NOTE | 2023-11-07 09:53 | MRI_ITS ---
STUDY: MRI RIGHT KNEE REASON FOR EXAM: Female, 33 years old. Pain. TECHNIQUE: Standardized fat and water weighted pulse sequences were obtained in all 3 orthogonal planes. COMPARISON: Right knee radiographs dated 11/02/2023. FINDINGS: Normal medial meniscus. Normal hyaline cartilage of the medial femorotibial compartment. Normal medial collateral ligamentous complex (MCL). Normal distal semimembranosus, gracilis and semitendinosus tendons. Normal lateral meniscus. Normal hyaline cartilage of the lateral femorotibial compartment. Normal proximal tibiofibular articulation. Normal lateral collateral (fibular) ligament. Normal popliteus tendon. Normal biceps femoris tendon. There is a tear of the proximal ACL (sagittal T2 series 4 image 12). There are subtle bone contusions involving the lateral femoral condyle as well as posterior aspects of the medial and lateral tibial plateaus. Normal posterior cruciate ligament (PCL). Normal congruent patellofemoral articulation. Normal hyaline cartilage of the patellofemoral compartment. Normal medial and lateral patellar retinaculum. Normal quadriceps tendon. Normal patellar tendon. Normal Hoffa''s fat pad. There is a moderate volume joint effusion. There is a tiny popliteal cyst. There is minimal subcutaneous soft tissue edema along the anterior aspect of the knee. MRI/Lower Ext Joint Only (Routine) IMPRESSION: Proximal ACL tear, with subtle bone contusions involving the lateral femoral condyle as well as posterior aspects of the medial and lateral tibial plateaus. Moderate joint effusion. Tiny popliteal cyst. Minimal subcutaneous soft tissue edema along the anterior aspect of the knee. Electronically Signed: Oscar Rasheed MD at 12:30 EST ,
== END | disposition home or self-care (01) ==
PROVIDERS: PCP Nurse Practitioner Adult Health
DX: M23.91 Unspecified internal derangement of right knee (principal)
CPT/HCPCS: 73721

== ENCOUNTER 2023-11-25 09:55 | Emergency (ER) | payer OTHER, SELFPAY ==
[2023-11-25 09:56] VITALS: BP 143/81; PULSE 91; RESP 15; TEMP 36.3; O2SAT 100; BMI 28.6
--- NOTE | 2023-11-25 10:25 | ED.VIS.LOWEX ---
HPI History of Present Illness HPI Narrative: 33-year-old female on 11/02/2023 tore her right ACL. She is already seen orthopedics Dr. Qamar Burrell. She has had an MRI showing a proximal tear. She is currently going through physical therapy. She aggravated the injury on Sunday when she kind of slid and twisted her knee. It is now more painful and increased swelling again. Chief Complaint: Lower Extremity Injury Informant: patient Occured/Mechanism Mechanism/Context: Yes injury Onset/Context/Timing Onset: Days and Weeks Context: Sudden Onset Timing: Continuous Quality of Pain: Dull and Aching Current Severity: Moderate Maximum Severity: Moderate Associated Symptoms Associated Symptoms: Negative for Parasthesia or Weakness Narrative Narrative: 33-year-old known right ACL tear on the 3 weeks ago. Reinjured it on Sunday. Currently is going through physical therapy. Yet to be determined if she will need surgery. Prior similar symptoms: Yes Recent Illness/Hospitalization: No PFSH PFSH Medical History ADHD Alcohol abuse Alcohol use disorder, mild, in early remission Anemia Anxiety and depression ASCUS with positive high risk HPV Bipolar disorder, unspecified Contact with and (suspected) exposure to other viral communicable diseases Generalized anxiety disorder Genital herpes History of meningitis History of multiple pulmonary nodules Palpitations PTSD (post-traumatic stress disorder) Suicide attempt Tobacco use URI (upper respiratory infection) Varicosities of leg Home Medications quetiapine 200 mg tablet (Seroquel) 200 mg PO DAILY 03/09/23 [History Last Taken Unknown] hydrocodone-acetaminophen 5-325mg 5mg-325mg 1 tab PO Q4H PRN PRN Pain 3 days #10 TABLETS 11/02/23 [Rx Last Taken Unknown] ibuprofen 600 mg tablet 600 mg PO Q6H PRN PRN pain 3 days #20 TABLETS 11/02/23 [Rx Last Taken Unknown] cholecalciferol (vitamin D3) 25 mcg (1,000 unit) capsule 25 mcg PO DAILY 11/06/23 [History Last Taken Unknown] Allergy/AdvReac Type Severity Reaction Status Date / Time azithromycin [From Zithromax] Allergy Rash Verified 11/06/23 08:34 amoxicillin AdvReac Vomiting Verified 11/06/23 08:34 red dye AdvReac Vomiting Verified 12/19/23 08:34 Family History Mother Anxiety and depression Bipolar disorder Polysubstance abuse Other Arthritis Cancer Heart disease Myocardial infarction Surgical History History of arthroscopic knee surgery History of tubal ligation History of varicose vein stripping Social History household members: spouse and family Smoking Status: Current every day smoker tobacco type: cigarettes and cigars quit status: has quit before alcohol intake: current alcohol intake frequency: 3 or more drinks per day Alcohol type: beer details: 4-6, 12 ounce beers daily since age 18. substance use type: marijuana caffeine: Yes Type: carbonated beverages Number of servings: 2, coffee and tea what type of physical activity do you participate in: none ROS ROS ED ROS Narrative Denies recent illness. Review of Systems ROS Unobtainable: Denies due to encephalopathy Constitutional Constitutional ED: Denies chills Eyes Eyes: Denies blurry vision Cardiovascular Cardiovascular: Denies chest pain Respiratory/Chest Respiratory/Chest: Denies cough Gastrointestinal Gastrointestinal: Denies abdominal pain Genitourinary Genitourinary ED: Denies dysuria Musculoskeletal Musculoskeletal: Denies arthralgias Integumentary Denies abscess Neurologic Neurologic: Denies headache(s) Psychiatric Psychiatric: Denies anxiety or depression Endocrine Endocrinology: Denies polydipsia Hematologic/Lymphatic Hematologic/Lymphatic: Denies easy bleeding Allergic/Immunologic Allergic/Immunologic ED: Denies mouth swelling EXAM Physical Exam Narrative Exam Narrative: Well-appearing 33-year-old female. HEENT exam unremarkable. Lungs clear. Heart regular rhythm. Right knee she has full flexion extension to the right hip and ankle. She is able to do flexion extension of the right knee is slow and deliberate. She has a small to moderate right knee effusion. She has good endpoints with the ACL and PCL. Good endpoints with the MCL and LCL. Quadriceps patellar and infrapatellar tendons are intact. She has normal dorsi and plantarflexion of the right foot. Normal sensation and strength. Const Vital Signs: 11/25/23 09:56 Temperature 97.4 F L Temperature Source Temporal Pulse Rate 91 Respiratory Rate 15 Blood Pressure 143/81 H Blood Pressure Mean 101 Pulse Ox 100 Oxygen Delivery Method Room Air Positive well nourished and well developed; Negative for cachectic or unkempt General Appearance ED: well developed and NAD; Negative for unkempt or cachectic Nutritional Appearance: Negative for cachectic HEENT Reports moist mucous membranes normocephalic and atraumatic; Negative for trauma or tenderness Eyes PERRL General Eye ED: Negative for other Neck full ROM and supple Thyroid: Negative for tender Lymph Lymphatic: Negative for other Chest Wall inspection of chest normal and palpation of chest normal Chest: Negative for other Resp normal respiratory effort, no retractions and clear to auscultation bilaterally Effort and Inspection: Negative for pain with movement Auscultation: Negative for rales, rhonchi or wheezes Cardio regular rate, regular rhythm, S1 normal heart sound, S2 normal heart sound and no murmurs Rate: Negative for bradycardia or tachycardic Rhythm: Negative for abnormal rhythm Bruits: Negative for other GI non-tender, non-distended and no masses Inspection: Negative for abdominal distention Auscultation: normoactive bowel sounds Palpation: soft; Negative for tender or guarding Bladder / Kidney Exam: No other Back/Spine no CVA tenderness General Back: Negative for CVA tenderness Cervical Spine: Negative for cervical spine tenderness Thoracic Spine / Upper Back: Negative for thoracic spinal tenderness Lumbar Spine / Lower Back: Negative for lumbar spinal tenderness Extremity Negative for normal to inspection or full ROM Extremity Narrative: Right knee small to moderate effusion. She is able to do flexion extension. Limited flexion due to discomfort. ACL PCL appear to be intact. I cannot really stress her knee due to discomfort. The medial collateral and lateral collateral. Be intact. The quadriceps patellar and infrapatellar tendons are intact. Patella is in normal position. Right foot is neurovascularly intact. General Extremety ED: Yes weight-bearing difficulty; Negative for cyanosis General Extremity: weight-bearing difficulty; Negative for cyanosis Neuro oriented x3, CN's II-XII intact bilaterally and moves all extremities Sensorium / Orientation: alert, oriented to person, oriented to place and oriented to time; Negative for orientation impaired Motor Exam: strength 5/5 throughout Psych mental status grossly normal Appearance: Negative for unkempt Speech: No other Mood & Affect: Negative for anxious Skin no wounds Lesions: no lesions Rashes: no rashes Trauma: Negative for abrasion or laceration MDM MDM MDM Narrative Medical decision making narrative: 33-year-old female known proximal tear of her right ACL. Reinjured it on Sunday. Currently is going through physical therapy. I explained to her I did not feel that a repeat knee x-ray would be of any significant benefit today. I told her she really 1 1 I would get it for by and think it would add anything to her care she is fine with it not being done. She will follow-up with her orthopedic surgeon Dr. Qamar Burrell and physical therapy this coming week and they can decide if they need to do further imaging after they reevaluate her. She is already on tramadol and ibuprofen for pain which she will continue she was given 2 Percocet here for pain. History & Record Review Discussion w/independent historian: Patient Additional record(s) reviewed:: Prior inpatient record, Prior outpatient record and Prior ED visit Discharge Plan Triage Chief Complaint: Lower Extremity Injury ED Provider: Yahir Ragland Dx/Rx/DC Orders Clinical Impression: Effusion of knee joint, left, ACL (anterior cruciate ligament) tear Instructions: ACL Injury Tx Prescriptions: No Action cholecalciferol (vitamin D3) 25 mcg (1,000 unit) capsule 25 mcg PO DAILY quetiapine [Seroquel] 200 mg Tablet 200 mg PO DAILY hydrocodone-acetaminophen 5-325 mg tablet 1 tab PO Q4H PRN PRN (Reason: Pain) 3 Days Qty: 10 0RF ibuprofen 600 mg tablet 600 mg PO Q6H PRN PRN (Reason: pain) 3 Days Qty: 20 0RF Primary Care Provider: MARTINEZ OSMAN Referrals: Qamar Burrell DO [Med Staff - Active Staff] - As soon as possible MARTINEZ OSMAN CRNP [Primary Care Provider] - Activity Restrictions/Additional Instructions: Ice and elevate your left knee is much as possible. Tramadol for pain and ibuprofen for inflammation. Call and follow-up with Dr. Qamar Burrell's office soon as possible this week to see if they need to do further imaging or repeat MRI if there is can observe this continue with physical therapy and see how it goes. Disposition Disposition: Home, Self Care
--- OUTSIDE RECORDS SUMMARY | 2023-11-25 10:36 | XMS RPT_ITS | CCD ---
Author Name Unknown Address [address] [place] [address] Organization [facility] Care Team Providers Care Butter Liquefier Name Role Phone Miguel TAVAREZ, Andry Bass Unavailable [phone] Nabil Wang PA-C Unavailable Rober Mojica DO Primary Care Provider Rober Mojica DO Primary Care Provider Rober Mojica DO Primary Care Provider Rober Mojica DO Primary Care Provider ROBER MOJICA Primary Care Unavailable ELLEN, TANISHA Attending Unavailable ROBER MOJICA Primary Care Unavailable JUAN ROLON Attending Unavailable ROBER MOJICA Primary Care Unavailable JUAN ROLON Attending Unavailable ROBER MOJICA Primary Care Unavailable ROBER MOJICA Primary Care Unavailable JUAN ROLON Attending Unavailable ROBER MOJICA Primary Care Unavailable GEORGE LATHAM Attending Unavailable ROBER MOJICA Primary Care Unavailable ROBER MOJICA Referring Unavailable GALINA ROBER Benji Primary Care Unavailable ELLEN, TANISHA Referring Unavailable WILSON HUGHESEKAH Referring Unavailable ROBER MOJICA Primary Care Unavailable ELLEN, TANISHA Referring Unavailable ROBER MOJICA Primary Care Unavailable ROBER MOJICA Primary Care Unavailable ELLEN, TANISHA Attending Unavailable ROBER MOJICA L Primary Care Unavailable ELLEN, TANISHA Referring Unavailable JUAN ROLON Attending Unavailable MOJICA, ROBER L Primary Care Unavailable MOJICA, ROBER DO Consulting Unavailable MOJICA, ROBER DO Referring Unavailable GARCIA CHAWLA DO Admitting Unavailable GARCIA CHAWLA DO Primary Care Unavailable GARCIA CHAWLA DO Attending Unavailable PROVIDER, UNKNOWN Consulting Unavailable ANNA MAN Attending Unavailable MOJICA, ROBER DO Consulting Unavailable MOJICA, ROBER DO Referring Unavailable ANNA MAN Admitting Unavailable ANNA MAN Primary Care Unavailable PROVIDER, UNKNOWN Consulting Unavailable MOJICAROBER DO Consulting Unavailable JOSE MANUEL HUDDLESTON Admitting Unavailable LEMJOSE MANUEL TRAYLOR Primary Care Unavailable LEMJOSE MANUEL TRAYLOR Attending Unavailable PROVIDER, UNKNOWN Consulting Unavailable MAST BOX OFFICE CLERK-PAINT SPRAYING MACHINE OPERATOR HELPER, FLOR Attending Unavailabl e MAST BOX OFFICE CLERK-PAINT SPRAYING MACHINE OPERATOR HELPER, FLOR Primary Care Unavailabl e MAST BOX OFFICE CLERK-PAINT SPRAYING MACHINE OPERATOR HELPER, FLOR Primary Care Unavailabl e MAST BOX OFFICE CLERK-PAINT SPRAYING MACHINE OPERATOR HELPER, FLOR Attending Unavailabl e Allergies Allergy Classification Reported Allergen(s) Allergy Type Date of Onset Reaction(s) Facility (2 sources) Azithromycin Drug Allergy 12-10-2020 rash [facility] Work Phone: (2 sources) RED DYE 40 drug allergy 12-10-2020 [facility] Work Phone: (20 sources) Azithromycin; Translations: [AZITHROMYCIN] Drug Allergy 11-17-2009 [facility] (1 source) Amoxicillin Drug Allergy [facility] (1 source) Azithromycin Drug Allergy [facility] Medications Current Medications Medication Drug Class(es) Dates Sig (Normalized) Sig (Original) ALPRAZolam 0.25 mg oral tablet (8 sources) Benzodiazepine Start: 09-22-2022 End: 11-12-2022 take 1 tablet by mouth every twenty-four hours as needed ALPRAZolam (XANAX) 0.25 mg tablet Take 1 tablet by mouth at bedtime as needed for up to 30 days. 30 tablet 0 10/13/2022 11/12/2022 Active Completed/Discontinued Medications Medication Drug Class(es) Dates Sig (Normalized) Sig (Original) ARIPiprazole 5 mg oral tablet (15 sources) Atypical Antipsychotic Start: 09-24-2020 End: 10-13-2022 take 1 tablet by mouth once daily in the evening ARIPiprazole (ABILIFY) 5 mg tablet Indications: Bipolar disorder, in partial remission, most recent episode depressed (HCC) , Agoraphobia Take 1 tablet by mouth once daily. In the evening. 30 tablet 1 06/07/2022 10/13/2022 Discontinued (Lack of Efficacy) Problems Active Problems Problem Classification Problem Date Documented Da te Episodic/Chronic Anxiety disorders (4 sources) Agoraphobia; Translations: [Agoraphobia, unspecified] Chronic Genitourinary symptoms and ill-defined conditions (1 source) Increased frequency of urination; Translations: [Frequency of micturition] Episodic Immunizations and screening for infectious disease (2 sources) Encounter for screening for infections with a predominantly sexual mode of transmission; Translations: [Encounter for screening for infections with a predominantly sexual mode of transmission] Onset: 09-14-2023 Episodic Joint disorders and dislocations; trauma-related (2 sources) Other articular cartilage disorders, right hip; Translations: [Articular cartilage disorder, pelvic region and thigh] Onset: 12-10-2020 12-10-2020 Chronic Miscellaneous mental health disorders (20 sources) Chronic insomnia; Translations: [Psychophysiologic insomnia] Onset: 09-10-2019 09-10-2019 Chronic Mood disorders (20 sources) Bipolar disorder, most recent episode depression; Translations: [Bipolar disorder, in partial remission, most recent episode depressed] Onset: 09-24-2020 09-24-2020 Chronic Nutritional deficiencies (2 sources) Vitamin D deficiency; Translations: [Vitamin D deficiency, unspecified] Onset: 02-08-2023 Chronic Other circulatory disease (3 sources) Sensation of foreign body in throat; Translations: [Other specified symptoms and signs involving the circulatory and respiratory systems] Episodic Other connective tissue disease (1 source) Muscle pain; Translations: [Myalgia, unspecified site] Episodic Other gastrointestinal disorders (2 sources) Dysphagia; Translations: [Dysphagia, unspecified] Episodic Other infections; including parasitic (2 sources) Personal history of other infectious and parasitic diseases; Translations: [Personal history of other infectious and parasitic diseases] Onset: 09-14-2023 Episodic Other lower respiratory disease (2 sources) Multiple nodules of lung; Translations: [Other nonspecific abnormal finding of lung field] Episodic Other lower respiratory disease (1 source) Dyspnea; Translations: [Shortness of breath] Episodic Other lower respiratory disease (1 source) Cough; Translations: [Acute cough] Episodic Other non-traumatic joint disorders (1 source) Joint pain; Translations: [Pain in unspecified joint] Episodic Other screening for suspected conditions (not mental disorders or infectious disease) (15 sources) Patient encounter status; Translations: [Encounter for screening for diabetes mellitus] Onset: 06-09-2022 Episodic Other upper respiratory disease (1 source) Nasal congestion; Translations: [Nasal congestion] Episodic Skin and subcutaneous tissue infections (2 sources) Pilonidal abscess of cleft; Translations: [Pilonidal cyst with abscess] Episodic Substance-related disorders (2 sources) Nicotine dependence; Translations: [Nicotine dependence, unspecified, uncomplicated] Onset: 12-10-2020 12-10-2020 Chronic Unclassified (20 sources) Abnormal cytology findings; Translations: [ASCUS on Pap smear] Onset: 04-11-2013 11-14-2021 Unclassified (1 source) NO SHOW Viral infection (2 sources) Herpesviral infection of other urogenital tract; Translations: [Herpesviral infection of other urogenital tract] Onset: 09-14-2023 Chronic Past or Other Problems Problem Classification Problem Date Documented Da te Episodic/Chronic Other circulatory disease (1 source) Other specified symptoms and signs involving the circulatory and respiratory systems; Translations: [Sensation of foreign body in throat] Onset: 06-14-2022 Episodic Other connective tissue disease (1 source) Myalgia, unspecified site; Translations: [Myalgia] Onset: 02-08-2023 Episodic Other gastrointestinal disorders (1 source) Dysphagia, unspecified; Translations: [Dysphagia, unspecified type] Onset: 06-14-2022 Episodic Other lower respiratory disease (1 source) Other nonspecific abnormal finding of lung field; Translations: [Lung nodules] Onset: 06-19-2022 Episodic Other non-traumatic joint disorders (2 sources) Other specified joint disorders, right hip; Translations: [Other specified disorders of joint, pelvic region and thigh] Onset: 12-10-2020 12-10-2020 Episodic Other non-traumatic joint disorders (20 sources) Pain in lower limb; Translations: [Pain in unspecified knee] Onset: 08-31-2014 08-31-2014 Episodic Other non-traumatic joint disorders (1 source) Pain in unspecified joint; Translations: [Arthralgia, unspecified joint] Onset: 02-08-2023 Episodic Other skin disorders (20 sources) Acne vulgaris; Translations: [Acne vulgaris] Onset: 09-10-2019 09-10-2019 Episodic Screening and history of mental health and substance abuse codes (5 sources) History of post-traumatic stress disorder; Translations: [Personal history of other mental and behavioral disorders] Onset: 10-13-2022 Episodic Unclassified (2 sources) Problem Varicose veins of lower extremity (20 sources) Venous varices; Translations: [Asymptomatic varicose veins of unspecified lower extremity] Onset: 03-21-2013 11-14-2021 Episodic Results Test Name Value Interpretation Reference Range Facil ity Vital Signs Date Time Vital Sign Value Performing Clinician Facility 01-26-2023 13:47-0500 Body temperature 99.5 [degF] Tanisha Diazman BOX OFFICE CLERK.PAINT SPRAYING MACHINE OPERATOR HELPER Work Phone: [facility] 01-26-2023 13:47-0500 Body weight 85.73 kg Tanisha Diazman BOX OFFICE CLERK.PAINT SPRAYING MACHINE OPERATOR HELPER Work Phone: [facility] 01-26-2023 13:47-0500 Diastolic blood pressure 84 mm[Hg] Tanisha Ellen BOX OFFICE CLERK.PAINT SPRAYING MACHINE OPERATOR HELPER Work Phone: [facility] 01-26-2023 13:47-0500 Heart rate 83 /min Tanisha Diazman BOX OFFICE CLERK.PAINT SPRAYING MACHINE OPERATOR HELPER Work Phone: [facility] 01-26-2023 13:47-0500 Respiratory rate 16 /min Tanisha Diazman BOX OFFICE CLERK.PAINT SPRAYING MACHINE OPERATOR HELPER Work Phone: [facility] 01-26-2023 13:47-0500 SaO2% (BldA) [Mass fraction] 98 % Tanisha Ellen BOX OFFICE CLERK.PAINT SPRAYING MACHINE OPERATOR HELPER Work Phone: [facility] 01-26-2023 13:47-0500 Systolic blood pressure 122 mm[Hg] Tanisha Ellen BOX OFFICE CLERK.PAINT SPRAYING MACHINE OPERATOR HELPER Work Phone: [facility] 10-23-2022 11:02-0500 Body temperature 99.61 [degF] Chani Vaughn PA-C Work Phone: [facility] 10-23-2022 11:02-0500 Body weight 84.91 kg Chani Bogner PA-C Work Phone: [facility] 10-23-2022 11:02-0500 Diastolic blood pressure 86 mm[Hg] Chani Bogner PA-C Work Phone: [facility] 10-23-2022 11:02-0500 Heart rate 84 /min Chani Bogner PA-C Work Phone: [facility] 10-23-2022 11:02-0500 Respiratory rate 20 /min Chani Bogner PA-C Work Phone: [facility] 10-23-2022 11:02-0500 SaO2% (BldA) [Mass fraction] 99 % Chani Bogner PA-C Work Phone: [facility] 10-23-2022 11:02-0500 Systolic blood pressure 124 mm[Hg] Chani Bogner PA-C Work Phone: [facility] 09-29-2022 11:08-0500 Body temperature 99 [degF] Divina Levi APRN.PAINT SPRAYING MACHINE OPERATOR HELPER Work Phone: [facility] 09-29-2022 11:08-0500 Body weight 85.55 kg Divina Levi APRN.PAINT SPRAYING MACHINE OPERATOR HELPER Work Phone: [facility] 09-29-2022 11:08-0500 Diastolic blood pressure 78 mm[Hg] Divina Levi APRN.PAINT SPRAYING MACHINE OPERATOR HELPER Work Phone: [facility] 09-29-2022 11:08-0500 Heart rate 90 /min Divina Levi APRN.PAINT SPRAYING MACHINE OPERATOR HELPER Work Phone: [facility] 09-29-2022 11:08-0500 Respiratory rate 16 /min Divina Levi APRN.PAINT SPRAYING MACHINE OPERATOR HELPER Work Phone: [facility] 09-29-2022 11:08-0500 SaO2% (BldA) [Mass fraction] 99 % Divina Levi APRN.PAINT SPRAYING MACHINE OPERATOR HELPER Work Phone: [facility] 09-29-2022 11:08-0500 Systolic blood pressure 138 mm[Hg] Divina Levi BOX OFFICE CLERK.PAINT SPRAYING MACHINE OPERATOR HELPER Work Phone: [facility] 07-03-2022 15:13-0400 Body weight 83.92 kg Georgebart Latham BOX OFFICE CLERK.PAINT SPRAYING MACHINE OPERATOR HELPER Work Phone: [facility] 07-03-2022 15:13-0400 Diastolic blood pressure 78 mm[Hg] George Zurawick BOX OFFICE CLERK.PAINT SPRAYING MACHINE OPERATOR HELPER Work Phone: [facility] 07-03-2022 15:13-0400 Heart rate 82 /min George Zurawick BOX OFFICE CLERK.PAINT SPRAYING MACHINE OPERATOR HELPER Work Phone: [facility] 07-03-2022 15:13-0400 Respiratory rate 16 /min George Zurawick BOX OFFICE CLERK.PAINT SPRAYING MACHINE OPERATOR HELPER Work Phone: [facility] 07-03-2022 15:13-0400 Systolic blood pressure 122 mm[Hg] George Zurawick BOX OFFICE CLERK.PAINT SPRAYING MACHINE OPERATOR HELPER Work Phone: [facility] 06-07-2022 10:51-0400 Body height 178 cm Tanisha Ellen BOX OFFICE CLERK.PAINT SPRAYING MACHINE OPERATOR HELPER Work Phone: [facility] 06-07-2022 10:51-0400 Body weight 85.19 kg Tanisha Ellen BOX OFFICE CLERK.PAINT SPRAYING MACHINE OPERATOR HELPER Work Phone: [facility] 06-07-2022 10:51-0400 Diastolic blood pressure 78 mm[Hg] Tanisha Ellen BOX OFFICE CLERK.PAINT SPRAYING MACHINE OPERATOR HELPER Work Phone: [facility] 06-07-2022 10:51-0400 Heart rate 107 /min Tanisha Ellen BOX OFFICE CLERK.PAINT SPRAYING MACHINE OPERATOR HELPER Work Phone: [facility] 06-07-2022 10:51-0400 SaO2% (BldA) [Mass fraction] 97 % Tanisha Ellen BOX OFFICE CLERK.PAINT SPRAYING MACHINE OPERATOR HELPER Work Phone: [facility] 06-07-2022 10:51-0400 Systolic blood pressure 118 mm[Hg] Tanisha Ellen BOX OFFICE CLERK.PAINT SPRAYING MACHINE OPERATOR HELPER Work Phone: [facility] NEGATED: Highlighted [id number] 08:19-0400 Body height 175.26 cm Yasmin Darin AT [facility] Work Phone: NEGATED: Highlighted [id number] 08:19-0400 Body height 175 cm Yasmin Darin AT [facility] Work Phone: NEGATED: Highlighted [id number] 08:19-0400 Body mass index (BMI) [Ratio] 28.9 kg/m2 Yasmin Darin AT [facility] Work Phone: NEGATED: Highlighted [id number] 08:19-0400 Body weight 88.45 kg Yasmin Darin AT [facility] Work Phone: NEGATED: Highlighted [id number] 08:19-0400 Body weight 89 kg Yasmin Darin AT [facility] Work Phone: NEGATED: Highlighted [id number] 12:17-0500 Body height 175.26 cm [facility] Work Phone: NEGATED: Highlighted [id number] 12:17-0500 Body height 175 cm [facility] Work Phone: NEGATED: Highlighted [id number] 12:17-0500 Body mass index (BMI) [Ratio] 28.9 kg/m2 [facility] Work Phone: NEGATED: Highlighted [id number] 12:17-0500 Body weight 88.45 kg [facility] Work Phone: NEGATED: Highlighted [id number] 12:17-0500 Body weight 89 kg [facility] Work Phone: Encounters Encounter Date Encounter Type Care Provider Facility Start: 11-01-2023 ambulatory FLOR MAST BOX OFFICE CLERK-PAINT SPRAYING MACHINE OPERATOR HELPER Fa cility:A Start: 09-14-2023 End: 09-19-2023 ambulatory FLOR MAST BOX OFFICE CLERK-PAINT SPRAYING MACHINE OPERATOR HELPER Facility:B Start: 06-28-2023 End: 06-28-2023 Emergency department patient visit ROBER LOZANO [facility] Start: 03-05-2023 Refill Juan Patel u BOX OFFICE CLERK.PAINT SPRAYING MACHINE OPERATOR HELPER Work Phone: Psychiatry Procedures Date Procedure Procedure Detail Performing Clinician Start: 12-18-2022 Follow-up visit Follow Up JUAN ROLON Start: 09-29-2022 Urnls dip stick/tabl et rgnt auto w/o microscopy Boaz Matute MD Work Phone: Start: 06-19-2022 Ct thorax w/o contra st material Tanisha Ellen BOX OFFICE CLERK.PAINT SPRAYING MACHINE OPERATOR HELPER Work Phone: Start: 06-14-2022 Us soft tissue head & neck real time imge docm Tanisha Ellen BOX OFFICE CLERK.PAINT SPRAYING MACHINE OPERATOR HELPER Work Phone: Start: 03-14-2022 End: 03-14-2022 BP scrn no perf at interval Nabil Wang PA-C Work Phone: Start: 03-14-2022 End: 03-14-2022 Calc BMI abv up sissy f/u Nabil Wang PA-C Work Phone: Start: 03-14-2022 End: 03-14-2022 Current tobacco non-user cad cap copd pv dm Nabil Wang PA-C Work Phone: Start: 03-14-2022 End: 03-14-2022 Docrev cur meds by elig clin Nabil Wang PA-C Work Phone: Start: 03-14-2022 End: 03-14-2022 Pain neg no plan Nabil Wang PA-C Work Phone: Start: 03-14-2022 End: 03-14-2022 Patient encounter procedure Nabil Wang PA-C Work Phone: Start: 01-27-2022 End: 01-27-2022 BP scrn no perf at interval Andry Rivera MD Work Phone: Start: 01-27-2022 End: 01-27-2022 Calc BMI abv up sissy f/u Andry Rivera MD Work Phone: Start: 01-27-2022 End: 01-27-2022 Current tobacco non-user cad cap copd pv dm Andry Rivera MD Work Phone: Start: 01-27-2022 End: 01-27-2022 Docrev cur meds by munira Rivera MD Work Phone: Start: 01-27-2022 End: 01-27-2022 Pain doc pos and plan Andry Rivera MD Work Phone: Start: 01-27-2022 End: 01-27-2022 Patient encounter procedure Andry Rivera MD Work Phone: Start: 10-02-2018 Adult depression screening assessment Cici Briones RN NEGATED: Highlighted rowStart: 03-14-2022 End: 03-14-2022 Documentation of current medications Yasmin ROSALES NEGATED: Highlighted rowStart: 01-27-2022 End: 01-27-2022 Documentation of current medications [facility] Plan of Treatment Date Care Activity Detail Author Start: 02-19-2027 Urine microalbumin profile DTAP,TDAP,TD (2 - Td or Tdap) [facility] Start: 01-26-2023 End: 03-28-2023 25-hydroxyvitamin D3 [Mass/volume] in Serum or Plasma VITAMIN D 25 HYDROXY Lab Routine Vitamin D deficiency Expected: 01/26/2023, Expires: 03/28/2023 [facility] Work Phone: Immunizations Immunization Date Immunization Notes Care Provider Fa cili 09-10-2019 influenza, injectabl e, quadrivalent, contains preservative Cici Briones RN [facility] Work Phone: 08-06-2017 influenza, injectabl e, quadrivalent, contains preservative Cici Briones RN [facility] 02-19-2017 tetanus toxoid, redu jonn diphtheria toxoid, and acellular pertussis vaccine, adsorbed Cici Briones RN [facility] Work Phone: 09-30-2015 influenza, injectabl e, quadrivalent, contains preservative Cici Briones RN [facility] 10-27-2014 influenza, seasonal, injectable Cici Briones RN [facility] Work Phone: 08-14-2011 influenza virus vaccine, unspecified formulation Cici Briones RN [facility] Payers Date Payer Category Payer Unknown MMO MMO TPA [id number] 2021-Present [address] [place] [address] [facility] [id number] 2021 Unknown [id number] 2021 Unknown [id number] 2017 Medicaid [employer] [employer] [id number] 2017-Present [phone] [address] [place] [address] Medicaid [id number] 2017 Medicaid [id number] 2017 Medicaid [id number] 1991 Unknown [id number] 1991 Unknown [id number] 1991 Unknown [id number] 1991 Unknown [id number] 1991 Unknown [id number] Social History Date Type Detail Facility Start: 01-27-2022 End: 03-14-2022 Assertion Unknown if ever smoked [facility] Work Phone: Start: 10-14-2018 End: 10-13-2022 Tobacco smoking status NHIS Smokes tobacco daily [facility] Work Phone: End: 10-19-2008 History of tobacco use Cigarette Smoker [facility] Work Phone: End: 10-19-2008 History of tobacco use Cigar Smoker [facility] Work Phone: Start: 10-14-2018 End: 10-13-2022 Tobacco use and exposure Smokeless tobacco non-user [facility] Work Phone: Start: 09-24-2020 End: 01-26-2023 Alcohol intake Current drinker of alcohol (finding) [facility] Start: 08-18-2020 End: 09-24-2020 History SDOH Alcohol Frequency 2 [facility] Start: 04-23-2020 End: 08-18-2020 History SDOH Alcohol Std Drinks 1 [facility] Start: 10-14-2018 History SDOH Alcohol Comment occasionally-does not drink on weekly basis [facility] Start: 04-23-2020 End: 08-18-2020 History SDOH Social Connections Phone 5 [facility] Start: 08-18-2020 End: 09-24-2020 History SDOH Social Connections Get Together 98 [facility] Start: 04-23-2020 End: 09-24-2020 History SDOH Social Connections Living 3 [facility] Start: 04-23-2020 Education 12 [facility] Start: 10-14-2018 End: 09-29-2022 Tobacco Comment 8 cigars per day-for about 1 month as of 10/14/18-previously smoked cigarettes on & off until 2007 [facility] Start: 1990 Sex Assigned At Not on file [facility] Start: 03-08-2022 End: 10-23-2022 Exposure to SARS-CoV-2 (event) Not sure [facility] Start: 09-19-2022 End: 09-29-2022 Exposure to SARS-CoV-2 (event) Yes [facility] Work Phone: Start: 10-13-2022 Cigarettes smoked current (pack per day) - Reported 0.5 [facility] Medical Equipment Procedure Code Equipment Code Equipment Origin al Text Equipment Identifier Dates [facility] [id number] Start: 12-02-2013 Clinical Notes 08-31-2014 to 09-15-2023 Telephone Encounter - Ayanna Glover LPN - 03/05/2023 12:55 PM EDTTelephone Encounter - Sylvia Best RN - 02/09/2023 4:38 PM EDTJuan Rolon APRN.PAINT SPRAYING MACHINE OPERATOR HELPER - 02/05/2023 10:40 AM EDT Note Date & Type Note Facility 09-15-2023 Note . MICRO - Microbiology PROCEDURE: Affirm Pathogens DNA Direct Probe [*1] SOURCE: Vaginal Fluid BODY SITE: Vagina COLLECTED DATE/TIME: 09/14/2023 16:12 EDT RECEIVED DATE/TIME: 09/14/2023 18:59 EDT START DATE/TIME: 09/14/2023 18:59 EDT FREE TEXT SOURCE: FINAL REPORTS Final Report [] Verified Date/Time/Personnel: 09/15/2023 11:59 EDT Trichomonas vaginalis DNA Probe Negative Gardnerella vaginalis DNA Probe Positive Radha species DNA Probe Negative Performing Locations *1: This test was performed at: [facility], [address] [place] [address], [phone] , [facility] ([place]) 03-05-2023 Miscellaneous Notes Patient has been identified by name and date of : Yes Requested Prescriptions Pending Prescriptions Disp Refills QUEtiapine (SEROQUEL) 200 mg tablet 30 tablet 1 Sig: Take 1 tablet by mouth daily at bedtime. gabapentin (NEURONTIN) 300 mg capsule 90 capsule 1 Sig: Take 1 capsule by mouth three times daily for 30 days. RX INSTRUCTIONS: Patient aware RX will be sent to pharmacy. No need to notify patient. Financial clearance submitted for follow up awaiting approval. Ayanna Glover LPN documented in this encounter [facility] 02-09-2023 Miscellaneous Notes Pt called and is notified of providers results and instructions. Pt voices understanding. Sylvia Best RN Please let Susana know that I received all her lab results. All of her autoimmune blood work is normal. Her vitamin D level is low. I recommend she begin taking Vitamin D3 5000 international unit(s) daily, this can be found in the vitamin section. No other concerns. Tanisha Hughes APRN.EMERSON documented in this encounter [facility] 02-05-2023 Note HNO ID: [id number] Author: Juan Rolon APRN.EMERSON Service: ? Author Type: Nurse Practitioner Type: Progress Notes Filed: 02/05/2023 10:42 AM Note Text: Patient did not log in for her virtual visit with the provider today. She did not answer her phone when she was contacted prior to the appointment time. [facility] 02-05-2023 History of Presen t illness Narrative Patient did not log in for her virtual visit with the provider today. She did not answer her phone when she was contacted prior to the appointment time. documented in this encounter [facility] 01-26-2023 Note HNO ID: [id number] Author: Tanisha Hughes APRN.CNP Service: ? Author Type: Nurse Practitioner Type: Progress Notes Filed: 01/26/2023 4:02 PM Note Text: Chief Complaint Patient presents with: Pain, Back: Lower back, Abcess drained in [place] - October 2022 HPI Susana Mcclain is a 32 year old female who presents here today for Above Complaints.. Today: Had abscess drained that was right by her tailbone in ED at [facility] on 10/2022. Seems to come back intermittently, causes back pain and pressure. When returns so far has been able to squeeze a yellow purulent drainage and sx will resolve. Does not currently have an abscess in this area. Having a lot of joint issues, swallowing issues-chronic but worsening. Pills always get stuck. Occasionally food will be difficult to get down. No trouble with liquids. Past medical history, appointments, medications, allergies reviewed. Previous Medical History PAST MEDICAL HISTORY Diagnosis Date ASCUS with positive high risk HPV 10/31/13 Genital herpes Patellofemoral syndrome PMH - PAST MEDICAL HISTORY OF AGE 11 MENEINGITIS depression Varicosities RIGHT LEG AND PERINEAL Previous Surgical History PAST SURGICAL HISTORY Procedure Laterality Date LIG/TRNSXJ FLP TUBE ABDL/VAG APPR UNI/BI PAST SURGICAL HISTORY OF WISDOM TEETH PAST SURGICAL HISTORY OF Right laser treatment for varicose veins VAGINOSCOPY 12/17/13 MARIOLA 1 Family History FAMILY HISTORY Adopted: Yes Problem Relation Age of Onset Depression Mother Bipolar disorder Mother Alcohol/Drug Mother Hypertension Mother Lipids Mother other (Unknown) Father Asthma Brother Cancer Maternal Uncle LUNG CANCER Cancer Maternal Grandmother Cancer Maternal Grandfather Patient Allergies ALLERGIES Allergen Reactions Z Ralph [Azithromycin] Rash Current Medications Current Outpatient Medications on File Prior to Visit Medication Sig QUEtiapine (SEROQUEL) 200 mg tablet Take 1 tablet by mouth daily at bedtime. gabapentin (NEURONTIN) 300 mg capsule Take 1 capsule by mouth three times daily for 30 days. ibuprofen (MOTRIN) 600 mg tablet Take one tablet , with food , every 12 hours for 7 days post vein procedure. No current facility-administered medications on file prior to visit. Social History Social History Tobacco Use Smoking status: Every Day Packs/day: 0.50 Years: 1.00 Pack years: 0.50 Types: Cigarettes Last attempt to quit: 10/19/2008 Years since quittin.2 Smokeless tobacco: Never Tobacco comments: 8 cigars per day-for about 1 month as of 10/14/18-previously smoked cigarettes on AND off until 2007 Substance Use Topics Alcohol use: Yes Comment: occasionally-does not drink on weekly basis Drug use: No Review of Symptoms REVIEW OF SYSTEMS See HPI, otherwise negative EXAM: BP 122/84 (BP Site: Left Arm, BP Position: Sitting, BP Cuff Size: Regular Adult) Pulse 83 Temp 37.5 ?C (99.5 ?F) Resp 16 Wt 85.7 kg (189 lb) LMP 09/20/2022 SpO2 98% BMI 27.06 kg/m? General Appearance: Well appearing, alert, in no acute distress, well-hydrated, well nourished.. Skin: Skin color, texture, turgor normal, no suspicious rashes or lesions. Lungs: Lungs clear to auscultation. No wheezing, rhonchi, rales.. Heart: RRR without murmur, gallop, or rubs. No ectopy. Health Maintenance List HEPATITIS B(1 of 3 - 3-dose series) Never done PNEUMOCOCCAL(1 - PCV) Never done PAP TESTING due on 05/03/2020 HPV TESTING due on 2021 COVID-19 VACCINE(3 - Booster for Pfizer series) due on 01/02/2022 DEPRESSION ASSESSMENT Never done DTAP,TDAP,TD(2 - Td or Tdap) due on 02/19/2027 INFLUENZA Completed HEPATITIS C SCREENING Completed HIV SCREENING Completed Data reviewed Previous records, office notes ASSESSMENT/PLAN: 1. Cyst near tailbone - ICD9: 685.1, ICD10: L05.91 (primary diagnosis) Not present currently. Concern for recurrent pilonidal cyst-would like general surgery opinion for possible removal of the capsule or just continue to monitor. - CONSULT TO GENERAL SURGERY 2. Myalgia - ICD9: 729.1, ICD10: M79.10 - CONSULT TO GENERAL SURGERY - CBC - COMP METABOLIC PANEL - C-REACTIVE PROTEIN (CRP) - SED RATE WESTERGREN - IRON + TIBC - FERRITIN BLD - MARY BLOOD - CCP ANTIBODY IGG - ANTI MARIPOSA ID - RHEUMATOID FACTOR BL - TSH BLD - T3 BLD - T4 FREE/FREE THYROX - THYROID PEROXIDASE ANTIBODY BLOOD 3. Arthralgia, unspecified joint - ICD9: 719.40, ICD10: M25.50 - CONSULT TO GENERAL SURGERY - CBC - COMP METABOLIC PANEL - C-REACTIVE PROTEIN (CRP) - SED RATE WESTERGREN - IRON + TIBC - FERRITIN BLD - MARY BLOOD - CCP ANTIBODY IGG - ANTI MARIPOSA ID - RHEUMATOID FACTOR BL - TSH BLD - T3 BLD - T4 FREE/FREE THYROX - THYROID PEROXIDASE ANTIBODY BLOOD 4. Sensation of foreign body in throat - ICD9: 784.99, ICD10: R09.89 Omeprazole daily. Suspect anxiety or GERD. If no improvement with omepraz (more content not included)... [facility] 01-26-2023 Instructions Tanisha Hughes APRN.CNP - 01/26/2023 2:11 PM EST Schedule with general surgery. Have your labs drawn. Start the omeprazole and take daily to see if this may be heartburn giving you this feeling in your throat. documented in this encounter [facility] 01-26-2023 History of Presen t illness Narrative Chief Complaint Patient presents with: Pain, Back: Lower back, Abcess drained in Er - October 2022 HPI Susana Mcclain is a 32 year old female who presents here today for Above Complaints.. Today: Had abscess drained that was right by her tailbone in ED at [facility] on 10/2022. Seems to come back intermittently, causes back pain and pressure. When returns so far has been able to squeeze a yellow purulent drainage and sx will resolve. Does not currently have an abscess in this area. Having a lot of joint issues, swallowing issues-chronic but worsening. Pills always get stuck. Occasionally food will be difficult to get down. No trouble with liquids. Past medical history, appointments, medications, allergies reviewed. Previous Medical History PAST MEDICAL HISTORY Diagnosis Date ASCUS with positive high risk HPV 10/31/13 Genital herpes Patellofemoral syndrome PMH - PAST MEDICAL HISTORY OF AGE 11 MENEINGITIS depression Varicosities RIGHT LEG AND PERINEAL Previous Surgical History PAST SURGICAL HISTORY Procedure Laterality Date LIG/TRNSXJ FLP TUBE ABDL/VAG APPR UNI/BI PAST SURGICAL HISTORY OF WISDOM TEETH PAST SURGICAL HISTORY OF Right laser treatment for varicose veins VAGINOSCOPY 12/17/13 MARIOLA 1 Family History FAMILY HISTORY Adopted: Yes Problem Relation Age of Onset Depression Mother Bipolar disorder Mother Alcohol/Drug Mother Hypertension Mother Lipids Mother other (Unknown) Father Asthma Brother Cancer Maternal Uncle LUNG CANCER Cancer Maternal Grandmother Cancer Maternal Grandfather Patient Allergies ALLERGIES Allergen Reactions Z Ralph [Azithromycin] Rash Current Medications Current Outpatient Medications on File Prior to Visit Medication Sig QUEtiapine (SEROQUEL) 200 mg tablet Take 1 tablet by mouth daily at bedtime. gabapentin (NEURONTIN) 300 mg capsule Take 1 capsule by mouth three times daily for 30 days. ibuprofen (MOTRIN) 600 mg tablet Take one tablet , with food , every 12 hours for 7 days post vein procedure. No current facility-administered medications on file prior to visit. Social History Social History Tobacco Use Smoking status: Every Day Packs/day: 0.50 Years: 1.00 Pack years: 0.50 Types: Cigarettes Last attempt to quit: 10/19/2008 Years since quittin.2 Smokeless tobacco: Never Tobacco comments: 8 cigars per day-for about 1 month as of 10/14/18-previously smoked cigarettes on & off until 2007 Substance Use Topics Alcohol use: Yes Comment: occasionally-does not drink on weekly basis Drug use: No Review of Symptoms REVIEW OF SYSTEMS See HPI, otherwise negative EXAM: BP 122/84 (BP Site: Left Arm, BP Position: Sitting, BP Cuff Size: Regular Adult) Pulse 83 Temp 37.5 C (99.5 F) Resp 16 Wt 85.7 kg (189 lb) LMP 09/20/2022 SpO2 98% BMI 27.06 kg/m General Appearance: Well appearing, alert, in no acute distress, well-hydrated, well nourished.. Skin: Skin color, texture, turgor normal, no suspicious rashes or lesions. Lungs: Lungs clear to auscultation. No wheezing, rhonchi, rales.. Heart: RRR without murmur, gallop, or rubs. No ectopy. Health Maintenance List HEPATITIS B(1 of 3 - 3-dose series) Never done PNEUMOCOCCAL(1 - PCV) Never done PAP TESTING due on 05/03/2020 HPV TESTING due on 2021 COVID-19 VACCINE(3 - Booster for Pfizer series) due on 01/02/2022 DEPRESSION ASSESSMENT Never done DTAP,TDAP,TD(2 - Td or Tdap) due on 02/19/2027 INFLUENZA Completed HEPATITIS C SCREENING Completed HIV SCREENING Completed Data reviewed Previous records, office notes ASSESSMENT/PLAN: 1. Cyst near tailbone - ICD9: 685.1, ICD10: L05.91 (primary diagnosis) Not present currently. Concern for recurrent pilonidal cyst-would like general surgery opinion for possible removal of the capsule or just continue to monitor. - CONSULT TO GENERAL SURGERY 2. Myalgia - ICD9: 729.1, ICD10: M79.10 - CONSULT TO GENERAL SURGERY - CBC - COMP METABOLIC PANEL - C-REACTIVE PROTEIN (CRP) - SED RATE WESTERGREN - IRON + TIBC - FERRITIN BLD - MARY BLOOD - CCP ANTIBODY IGG - ANTI MARIPOSA ID - RHEUMATOID FACTOR BL - TSH BLD - T3 BLD - T4 FREE/FREE THYROX - THYROID PEROXIDASE ANTIBODY BLOOD 3. Arthralgia, unspecified joint - ICD9: 719.40, ICD10: M25.50 - CONSULT TO GENERAL SURGERY - CBC - COMP METABOLIC PANEL - C-REACTIVE PROTEIN (CRP) - SED RATE WESTERGREN - IRON + TIBC - FERRITIN BLD - MARY BLOOD - CCP ANTIBODY IGG - ANTI MARIPOSA ID - RHEUMATOID FACTOR BL - TSH BLD - T3 BLD - T4 FREE/FREE THYROX - THYROID PEROXIDASE ANTIBODY BLOOD 4. Sensation of foreign body in throat - ICD9: 784.99, ICD10: R09.89 Omeprazole daily. Suspect anxiety or GERD. If no improvement with omeprazole, consider reultrasounding or swallowing testing. 5. Well adult exam - ICD9: V70.0, ICD10: Z00.00 - CONSULT TO GENERAL SURGERY - CBC - COMP METABOLIC PANEL - C-REACTIVE PROTEIN (CRP) - SED RATE WESTERGREN - IRON + TIBC - FERRITIN BLD - MARY BLOOD - CCP ANTIBODY IGG - ANTI MARIPOSA ID - RHEUMATOID FACTOR BL - TSH BLD - T3 BLD - T4 FREE/FREE THYROX - THYROID PEROXIDASE ANTIBODY BLOOD 6. Elevated serum creatinine - ICD9: 790.99, ICD10: R79.89 - COMP METABOLIC PANEL 7. Vitamin D deficiency - ICD9: 268.9, ICD10: E55.9 - VITAMIN B12 BLOOD - VITAMIN D 25 HYDROXY 8. Screening for diabetes mellitus - ICD9: V77.1, ICD10: Z13.1 - CBC - COMP METABOLIC PANEL 9. Encounter for vitamin deficiency screening - ICD9: V77.99, ICD10: Z13.21 - VITAMIN B12 BLOOD 10. Screening for thyroid disorder - ICD9: V77.0, ICD10: Z13.29 - TSH BLD - T3 BLD - T4 FREE/FREE THYROX - THYROID PEROXIDASE ANTIBODY BLOOD Tanisha Hughes APRN.PAINT SPRAYING MACHINE OPERATOR HELPER documented in this encounter [facility] 12-18-2022 Note HNO ID: [id number] Author: Juan Rolon APRN.CNP Service: ? Author Type: Nurse Practitioner Type: Progress Notes Filed: 12/18/2022 9:55 AM Note Text: PSYC FOLLOW UP - PSYCHIATRIC PROGRESS NOTE DIAGNOSIS: Generalized Anxiety Disorder Bipolar 1 disorder, depressed, moderate History of ADHD dx History of PTSD dx GAF: -60-51 Moderate symptoms or moderate difficulty in social, occupational or school functioning. TREATMENT PLAN: Increase Seroquel to address mood and anxiety symptoms. Increase Gabapentin to address her anxiety symptoms. She utilizes Xanax only as needed for overwhelming episodes of anxiety or panic. She did not request a refill at this appointment. Patient continues to abstain from marijuana use. Follow up in 6 to 8 weeks. Medication Update: Seroquel 200 mg - take 1 tablet at bedtime. Gabapentin 300 mg - take 1 capsule three times a day. Utilize xanax only as needed for overwhelming episodes of anxiety and panic. The effects and side effects of all the medications were reviewed in detail with the patient. She denies any involuntary movement related side effects. PDMP report was reviewed and found to be appropriate without any signs of misuse or diversion. Patient is in agreement with the treatment plan and aware to reach out with any questions, concerns, or worsening of symptoms prior to the next appointment. CC: Follow up regarding mood and anxiety With the patient consent, visit was performed virtually. HPI: Susana Mcclain is a 32 year old Female with a history of ALFREDO, Bipolar disorder, ADHD, and PTSD presenting today for follow-up. Date of last visit: 11/14/2022 Plan from last visit: Increase Seroquel to address sleep difficulties and mood. Start Gabapentin to help with anxiety concerns. Consider addition of Strattera to help with ADHD symptoms if needed after anxiety improves. Complete Urine tox screen prior to confirming ADHD diagnosis. Discontinue Trazodone due to lack of efficacy. Utilize xanax only as needed for overwhelming episodes of anxiety. It was not refilled at this appointment. Continue to abstain from marijuana use. Follow up in 4 weeks. Today Susana shares that she is doing okay. Noticed improvement in her symptoms since the last month. More bad days in the last 2 weeks. On bad days, she tends to sleep during the day until kids come home. Small tasks are difficult on those days. She has also noticed some episodes of irritability. My family is trying to fix me and everything that I do . She shares that she has been bottling a lot of her emotions. Her tends to put her down frequently. There was one significant episode of outburst that occurred while she was at work due to compounding of stressors at home. She has tolerated the Seroquel without any side effects. Gabapentin has helped with anxiety but it is not helping her as much as it was initially. She is in agreement to try a higher dose. She has only been using the xanax the last couple days to help with some panic symptoms. She continues to abstain from marijuana use. 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 Interval Progress: Slightly improved Risks and benefits of the medication, including any black box warnings, were discussed with the patient. Social History: See HPI PATIENT DATA: Generalized Anxiety Disorder Scale (ALFREDO-7) ALFREDO - 7 SCORES 10/11/2022 11/14/2022 12/15/2022 ALFREDO-7 Score 12 12 10 (0-4) minimal anxiety, (5-9) mild anxiety, (10-14) moderate anxiety, (15-21) severe anxiety Patient Health Questionnaire (PHQ-9) PHQ-9 10/11/2022 11/14/2022 12/15/2022 Score 22 12 13 (0-4) minimal depression, (5-9) mild depression, (10-14) moderate depression, (15-19) moderately severe depression, (20-27) severe depression ROS: General: Negative for fever, malaise, unintentional weight loss HEENT: Negative for recent changes in vision or hearing, no nasal drainage Respiratory: Negative for cough, wheezing or SOB Cardiovascular: Negative for chest pain GI: Negative for nausea, vomiting, change in bowel habits MUSCULOSKELETAL: Negative for acute back or joint pain SKIN: Negative for rash NEURO: Negative for headaches, seizures, focal neurological deficits All other systems negative. VITAL SIGNS: BP Temp Pulse Resp SpO2 MENTAL STATUS EXAMINATION: Appearance: Appropriately groomed, appears stated age Behavior: Appropriately engaged Psychomotor: No psychomotor agitation Cognition Level of Consciousness: Awake and alert. No fluctuation in wakefulness. Orientation: Grossly oriented Memory: Intact Attention/Concentration: Good Fund of Knowledge: Able to demonstrate an awareness of current events. Mood: Sad Affect: Congruent to mood Speech/Language: Appropriate tone, prosody, abbey, phonetics, and syntax Thought Form: Goal-directed. No loosening of associations. Thought Cont (more content not included)... [facility] 12-18-2022 Instructions Juan Rolon APRN.CNP - 12/18/2022 9:47 AM EST Liana Meza, It was good to talk with you today. Below is a summary of the plan that we discussed during your appointment for reference. Of course, if you have any questions or concerns do not hesitate to reach out to me via a message or call. Best, Juan Rolon APRN.PAINT SPRAYING MACHINE OPERATOR HELPER PLAN AND FOLLOW UP: YOU SHOULD SEEK IMMEDIATE MEDICAL ATTENTION AT THE NEAREST EMERGENCY DEPARTMENT OR BY CALLING 911, IF ANY OF THE FOLLOWING OCCURS: - New or worsening thoughts of harming yourself (suicidal thoughts) or others (homicidal thoughts) - Not feeling safe at home or worrying about your ability to remain safe at home If you are having thoughts of harming yourself or others, then you can: - Call the National Suicide Hotline at 2-646-FFLAVGJ ( ) or 4-616-316-TALK (0352) - Text 0ACSZ to 377656 Medication Update: Seroquel 200 mg - take 1 tablet at bedtime. Gabapentin 300 mg - take 1 capsule three times a day. Utilize xanax only as needed for overwhelming episodes of anxiety and panic. Next appointment: --Schedule in 6 to 8 weeks or sooner if needed -- You may call the department appointment line at [phone] to schedule your appointment. -- Please call my nurse Ayanna at [phone] or send me a message in [facility] with any questions or concerns between appointments. documented in this encounter [facility] 12-18-2022 History of Presen t illness Narrative Images from the original note were not included. PSYC FOLLOW UP - PSYCHIATRIC PROGRESS NOTE DIAGNOSIS: Generalized Anxiety Disorder Bipolar 1 disorder, depressed, moderate History of ADHD dx History of PTSD dx GAF: -60-51 Moderate symptoms or moderate difficulty in social, occupational or school functioning. TREATMENT PLAN: Increase Seroquel to address mood and anxiety symptoms. Increase Gabapentin to address her anxiety symptoms. She utilizes Xanax only as needed for overwhelming episodes of anxiety or panic. She did not request a refill at this appointment. Patient continues to abstain from marijuana use. Follow up in 6 to 8 weeks. Medication Update: Seroquel 200 mg - take 1 tablet at bedtime. Gabapentin 300 mg - take 1 capsule three times a day. Utilize xanax only as needed for overwhelming episodes of anxiety and panic. The effects and side effects of all the medications were reviewed in detail with the patient. She denies any involuntary movement related side effects. PDMP report was reviewed and found to be appropriate without any signs of misuse or diversion. Patient is in agreement with the treatment plan and aware to reach out with any questions, concerns, or worsening of symptoms prior to the next appointment. CC: Follow up regarding mood and anxiety With the patient consent, visit was performed virtually. HPI: Susana Mcclain is a 32 year old Female with a history of ALFREDO, Bipolar disorder, ADHD, and PTSD presenting today for follow-up. Date of last visit: 11/14/2022 Plan from last visit: Increase Seroquel to address sleep difficulties and mood. Start Gabapentin to help with anxiety concerns. Consider addition of Strattera to help with ADHD symptoms if needed after anxiety improves. Complete Urine tox screen prior to confirming ADHD diagnosis. Discontinue Trazodone due to lack of efficacy. Utilize xanax only as needed for overwhelming episodes of anxiety. It was not refilled at this appointment. Continue to abstain from marijuana use. Follow up in 4 weeks. Today Susana shares that she is doing okay. Noticed improvement in her symptoms since the last month. More bad days in the last 2 weeks. On bad days, she tends to sleep during the day until kids come home. Small tasks are difficult on those days. She has also noticed some episodes of irritability. My family is trying to fix me and everything that I do . She shares that she has been bottling a lot of her emotions. Her tends to put her down frequently. There was one significant episode of outburst that occurred while she was at work due to compounding of stressors at home. She has tolerated the Seroquel without any side effects. Gabapentin has helped with anxiety but it is not helping her as much as it was initially. She is in agreement to try a higher dose. She has only been using the xanax the last couple days to help with some panic symptoms. She continues to abstain from marijuana use. 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 Interval Progress: Slightly improved Risks and benefits of the medication, including any black box warnings, were discussed with the patient. Social History: See HPI PATIENT DATA: Generalized Anxiety Disorder Scale (ALFREDO-7) ALFREDO - 7 SCORES 10/11/2022 11/14/2022 12/15/2022 ALFREDO-7 Score 12 12 10 (0-4) minimal anxiety, (5-9) mild anxiety, (10-14) moderate anxiety, (15-21) severe anxiety Patient Health Questionnaire (PHQ-9) PHQ-9 10/11/2022 11/14/2022 12/15/2022 Score 22 12 13 (0-4) minimal depression, (5-9) mild depression, (10-14) moderate depression, (15-19) moderately severe depression, (20-27) severe depression ROS: General: Negative for fever, malaise, unintentional weight loss HEENT: Negative for recent changes in vision or hearing, no nasal drainage Respiratory: Negative for cough, wheezing or SOB Cardiovascular: Negative for chest pain GI: Negative for nausea, vomiting, change in bowel habits MUSCULOSKELETAL: Negative for acute back or joint pain SKIN: Negative for rash NEURO: Negative for headaches, seizures, focal neurological deficits All other systems negative. VITAL SIGNS: BP Temp Pulse Resp SpO2 MENTAL STATUS EXAMINATION: Appearance: Appropriately groomed, appears stated age Behavior: Appropriately engaged Psychomotor: No psychomotor agitation Cognition Level of Consciousness: Awake and alert. No fluctuation in wakefulness. Orientation: Grossly oriented Memory: Intact Attention/Concentration: Good Fund of Knowledge: Able to demonstrate an awareness of current events. Mood: Sad Affect: Congruent to mood Speech/Language: Appropriate tone, prosody, abbey, phonetics, and syntax Thought Form: Goal-directed. No loosening of associations. Thought Content: No delusions noted or endorsed. Perceptual Disturbances: Did not appear to respond to auditory stimuli. Safety: Suicidal Ideations: No suicidal ideation, intent or plan. Homicidal Ideations: No homicidal ideation, intent or plan. Insight: Appropriate Judgment: Appropriate I spent a total of 26 minutes on the date of the service which included preparing to see the patient, [id number] patient care, completing clinical documentation, and counseling and educating the patient/family/caregiver, ordering medications/labs. Juan Rolon APRN.CNP December 18, 2022 9:30 AM This note was partially generated using Surphace voice recognition system. Note was reviewed for accuracy. There may be minor misspellings or grammar miscues with Surphace voice recognition. documented in this encounter [facility] 11-14-2022 Note HNO ID: [id number] Author: Juan Rolon APRN.CNP Service: ? Author Type: Nurse Practitioner Type: Progress Notes Filed: 11/14/2022 9:02 AM Note Text: PSYC FOLLOW UP - PSYCHIATRIC PROGRESS NOTE DIAGNOSIS: Bipolar 1 disorder, mixed, moderate Generalized Anxiety Disorder Hx of ADHD GAF: -60-51 Moderate symptoms or moderate difficulty in social, occupational or school functioning. TREATMENT PLAN: Increase Seroquel to address sleep difficulties and mood. Start Gabapentin to help with anxiety concerns. Consider addition of Strattera to help with ADHD symptoms if needed after anxiety improves. Complete Urine tox screen prior to confirming ADHD diagnosis. Discontinue Trazodone due to lack of efficacy. Utilize xanax only as needed for overwhelming episodes of anxiety. It was not refilled at this appointment. Continue to abstain from marijuana use. Follow up in 4 weeks. Medication Update: Stop Trazodone Seroquel 150 mg - take 1 tablet every night at bedtime. Gabapentin 100 mg - take 1 capsules three times daily. Utilize xanax only as needed for overwhelming episodes of anxiety. The effects and side effects of all the medications were reviewed in detail with the patient. She is in agreement with the treatment plan. Patient denies any involuntary movement related side effects. Patient is aware to reach out with any questions, concerns, or worsening of symptoms prior to the next appointment. PDMP report was reviewed and found to be appropriate without any signs of misuse or diversion. CC: Follow up regarding mood and anxiety With the patient consent, visit was performed virtually. HPI: Susana Mcclain is a 32 year old Female with a history of Bipolar disorder, ALFREDO, and ADHD presenting today for follow-up. Date of last visit: 10/13/2022 Plan from last visit: 1. Stop Abilify due to lack of efficacy. 2. Start Seroquel to help with mood and sleep difficulties. 3. Continue Trazodone at the same dose. 4. Consider the addition of Gabapentin if mood and sleep improves with Seroquel but not anxiety. 5. Utilize xanax only as needed for increased episodes of anxiety. 6. Rule out PTSD at the next appointment. Today Susana shares that she is doing good. Things have been a little better . She has been able to get up and get motivated to complete things. She has been sleeping better with the increase in Seroquel. Her mood is still improving. She has noticed that she gets annoyed by really loud noises. She gets frustrated at work easily. The anxiety is still present and she has not noticed a change. She noticed struggling with anxiety when she went to the mall to shop. Still has insecure thoughts. She has not had to take her xanax as often. She was only taking Xanax at night but Seroquel has been helping more. Denies any nightmares or night terrors. She continues to abstain from marijuana use. Susana has been struggling with memories of things that have occurred to her in the past. This led her to avoiding certain things during the holidays. She has been concerned about not being able to be present. She gets distracted very easily. It makes it hard for her to focus and get things done. Struggles with rumination regarding things that have occurred. Interval Progress: Slightly improved Risks and benefits of the medication, including any black box warnings, were discussed with the patient. Social History: See HPI PATIENT DATA: Generalized Anxiety Disorder Scale (ALFREDO-7) ALFREDO - 7 SCORES 10/11/2022 11/14/2022 ALFREDO-7 Score 12 12 (0-4) minimal anxiety, (5-9) mild anxiety, (10-14) moderate anxiety, (15-21) severe anxiety Patient Health Questionnaire (PHQ-9) PHQ-9 10/11/2022 11/14/2022 Score 22 12 (0-4) minimal depression, (5-9) mild depression, (10-14) moderate depression, (15-19) moderately severe depression, (20-27) severe depression ROS: General: Negative for fever, malaise, unintentional weight loss HEENT: Negative for recent changes in vision or hearing, no nasal drainage Respiratory: Negative for cough, wheezing or SOB Cardiovascular: Negative for chest pain GI: Negative for nausea, vomiting, change in bowel habits MUSCULOSKELETAL: Negative for acute back or joint pain SKIN: Negative for rash NEURO: Negative for headaches, seizures, focal neurological deficits All other systems negative. VITAL SIGNS: BP Temp Pulse Resp SpO2 MENTAL STATUS EXAMINATION: Appearance: Appropriately groomed, appears stated age Behavior: Appropriately engaged Psychomotor: No psychomotor agitation Cognition Level of Consciousness: Awake and alert. No fluctuation in wakefulness. Orientation: Grossly oriented Memory: Intact Attention/Concentration: Good Fund of Knowledge: Able to demonstrate an awareness of current events. Mood: Anxious Affect: Congruent to mood Speech/Language: Appropriate tone, prosody, abbey, phonetics, and syntax Though (more content not included)... [facility] 11-14-2022 Instructions Juan Rolon APRN.CNP - 11/14/2022 8:58 AM EST Liana Meza, It was good to talk with you today. Below is a summary of the plan that we discussed during your appointment for reference. Of course, if you have any questions or concerns do not hesitate to reach out to me via a message or call. Juan Posada APRN.PAINT SPRAYING MACHINE OPERATOR HELPER PLAN AND FOLLOW UP: YOU SHOULD SEEK IMMEDIATE MEDICAL ATTENTION AT THE NEAREST EMERGENCY DEPARTMENT OR BY CALLING 911, IF ANY OF THE FOLLOWING OCCURS: - New or worsening thoughts of harming yourself (suicidal thoughts) or others (homicidal thoughts) - Not feeling safe at home or worrying about your ability to remain safe at home If you are having thoughts of harming yourself or others, then you can: - Call the National Suicide Hotline at 1-631-GBTEVYI ( ) or 5-462-987-TALK (1821) - Text 4HOPE to 352274 Medication Update: Stop Trazodone Seroquel 150 mg - take 1 tablet every night at bedtime. Gabapentin 100 mg - take 1 capsules three times daily. Utilize xanax only as needed for overwhelming episodes of anxiety. Next appointment: --Schedule in 4 weeks or sooner if needed -- You may call the department appointment line at [phone] to schedule your appointment. -- Please call my nurse Ayanna at [phone] or send me a message in [facility] with any questions or concerns between appointments. documented in this encounter [facility] 11-14-2022 History of Presen t illness Narrative Images from the original note were not included. PSYC FOLLOW UP - PSYCHIATRIC PROGRESS NOTE DIAGNOSIS: Bipolar 1 disorder, mixed, moderate Generalized Anxiety Disorder Hx of ADHD GAF: -60-51 Moderate symptoms or moderate difficulty in social, occupational or school functioning. TREATMENT PLAN: Increase Seroquel to address sleep difficulties and mood. Start Gabapentin to help with anxiety concerns. Consider addition of Strattera to help with ADHD symptoms if needed after anxiety improves. Complete Urine tox screen prior to confirming ADHD diagnosis. Discontinue Trazodone due to lack of efficacy. Utilize xanax only as needed for overwhelming episodes of anxiety. It was not refilled at this appointment. Continue to abstain from marijuana use. Follow up in 4 weeks. Medication Update: Stop Trazodone Seroquel 150 mg - take 1 tablet every night at bedtime. Gabapentin 100 mg - take 1 capsules three times daily. Utilize xanax only as needed for overwhelming episodes of anxiety. The effects and side effects of all the medications were reviewed in detail with the patient. She is in agreement with the treatment plan. Patient denies any involuntary movement related side effects. Patient is aware to reach out with any questions, concerns, or worsening of symptoms prior to the next appointment. PDMP report was reviewed and found to be appropriate without any signs of misuse or diversion. CC: Follow up regarding mood and anxiety With the patient consent, visit was performed virtually. HPI: Susana Mcclain is a 32 year old Female with a history of Bipolar disorder, ALFREDO, and ADHD presenting today for follow-up. Date of last visit: 10/13/2022 Plan from last visit: 1. Stop Abilify due to lack of efficacy. 2. Start Seroquel to help with mood and sleep difficulties. 3. Continue Trazodone at the same dose. 4. Consider the addition of Gabapentin if mood and sleep improves with Seroquel but not anxiety. 5. Utilize xanax only as needed for increased episodes of anxiety. 6. Rule out PTSD at the next appointment. Today Susana shares that she is doing good. Things have been a little better . She has been able to get up and get motivated to complete things. She has been sleeping better with the increase in Seroquel. Her mood is still improving. She has noticed that she gets annoyed by really loud noises. She gets frustrated at work easily. The anxiety is still present and she has not noticed a change. She noticed struggling with anxiety when she went to the mall to shop. Still has insecure thoughts. She has not had to take her xanax as often. She was only taking Xanax at night but Seroquel has been helping more. Denies any nightmares or night terrors. She continues to abstain from marijuana use. Susana has been struggling with memories of things that have occurred to her in the past. This led her to avoiding certain things during the holidays. She has been concerned about not being able to be present. She gets distracted very easily. It makes it hard for her to focus and get things done. Struggles with rumination regarding things that have occurred. Interval Progress: Slightly improved Risks and benefits of the medication, including any black box warnings, were discussed with the patient. Social History: See HPI PATIENT DATA: Generalized Anxiety Disorder Scale (ALFREDO-7) ALFREDO - 7 SCORES 10/11/2022 11/14/2022 ALFREDO-7 Score 12 12 (0-4) minimal anxiety, (5-9) mild anxiety, (10-14) moderate anxiety, (15-21) severe anxiety Patient Health Questionnaire (PHQ-9) PHQ-9 10/11/2022 11/14/2022 Score 22 12 (0-4) minimal depression, (5-9) mild depression, (10-14) moderate depression, (15-19) moderately severe depression, (20-27) severe depression ROS: General: Negative for fever, malaise, unintentional weight loss HEENT: Negative for recent changes in vision or hearing, no nasal drainage Respiratory: Negative for cough, wheezing or SOB Cardiovascular: Negative for chest pain GI: Negative for nausea, vomiting, change in bowel habits MUSCULOSKELETAL: Negative for acute back or joint pain SKIN: Negative for rash NEURO: Negative for headaches, seizures, focal neurological deficits All other systems negative. VITAL SIGNS: BP Temp Pulse Resp SpO2 MENTAL STATUS EXAMINATION: Appearance: Appropriately groomed, appears stated age Behavior: Appropriately engaged Psychomotor: No psychomotor agitation Cognition Level of Consciousness: Awake and alert. No fluctuation in wakefulness. Orientation: Grossly oriented Memory: Intact Attention/Concentration: Good Fund of Knowledge: Able to demonstrate an awareness of current events. Mood: Anxious Affect: Congruent to mood Speech/Language: Appropriate tone, prosody, abbey, phonetics, and syntax Thought Form: Goal-directed. No loosening of associations. Thought Content: No delusions noted or endorsed. Perceptual Disturbances: Did not appear to respond to auditory stimuli. Safety: Suicidal Ideations: No suicidal ideation, intent or plan. Homicidal Ideations: No homicidal ideation, intent or plan. Insight: Appropriate Judgment: Appropriate I spent a total of 28 minutes on the date of the service which included preparing to see the patient, [id number] patient care, completing clinical documentation, and counseling and educating the patient/family/caregiver, ordering medications/labs. Juan Rolon APRN.CNP November 14, 2022 8:27 AM This note was partially generated using [employer]ace voice recognition system. Note was reviewed for accuracy. There may be minor misspellings or grammar miscues with RFEyeDon voice recognition. documented in this encounter [facility] 10-23-2022 Miscellaneous Notes Patient returned call. She is at [facility] ER at this time. Jasmina Blue RN Attempted to call pt and went to . Left message on secure informing pt of DR. Mojica message. Pt is to call office to confirm she received message. Marilin Garner Ma I didn't evaluate patient, if the pain is this severe, she needs to go to the EMERGENCY DEPARTMENT. Rober Mojica DO Pt calls to report that she was seen in [facility] today and is waiting on influenza/covid testing. Pt reports she has had a HAMMOND x 4 days. Pt reports she has also had a fever for that long. Pt reports she is taking tylenol and ibuprofen but that does not touch HAMMOND. Pt reports fever does not go below 100 degrees and currently is 101.7 Pt reports the HAMMOND is an 8 on pain scale, constant, and excruciating. Pt reports she can't do anything because any movement makes it worse. Pt reports pain is all over her head an radiating down jaw. Pt reports she has congestion and cough also. Pt reports she is taking Robitussin. Pt is asking what else she can do because she cannot take this pain. Please review and advise. Flor Padgett LPN documented in this encounter [facility] 10-23-2022 Influenza virus A and B RNA and SARS-CoV-2 (COVID-19) N gene panel KRUPA+probe (Resp) COVID 19 RESULT: SARS-CoV-2 (Agent of COVID-19) Not Detected by RT-PCR or equivalent method. wilbur [id number]_[employer] (PATRICIA)_EUA This test was developed and its performance characteristics determined by [facility]'s [facility] [place]. This test has been authorized by FDA under an Emergency Use Authorization (EUA). This test has been validated in accordance with the FDA's Guidance Document Policy for Diagnostics Testing in Laboratories Certified to Perform High Complexity Testing under CLIA prior to Emergency use Authorization for Coronavirus Disease 2019 during the Public Health Emergency issued on January 17, 2020. Test performed by [facility], [facility] [place], [address], [place] [address]. INFLUENZA A PCR: Negative for Influenza A by RT-PCR INFLUENZA B PCR: Negative for Influenza B by RT-PCR [facility] documented as of this encounter (statuses as of 03/18/2022) [facility] History of Past illness Narrative* Problem Noted Date Resolved Date Unspecified disorder of lower leg joint 08/31/20 14 10/14/2018 History of depression, currently preg nant 02/27/2013 12/17/2013 Overview: 02/27/2013 Pt has a history of depression with her first . She has been off medication for over 2 years. She believes she is doing well off the medication. Discussed increased risks of depression during and and importance of reporting the development or worsening of symptoms should they occur. Pt denies ever having any suicidal thoughts or tendencies or thoughts of hurting others. Family history of carrier of genetic disease 09/201312/17/2013 Overview: 02/20/2013Pt states she is a carrier of sickle cell. She is adopted and knows some of her family, but she is unaware of anyone with the disease. There are other blood relatives that are carriers as well. The father of the baby has never been tested. Father of the baby with Johnston Syndrome. History of herpes genitalis 02/27/201311/20 Overview: 03/21/13 - prophylaxis at 36wks - KK 02/27/2013Patient has a history of genital herpes. She is advised of the importance of reporting any outbreaks during especially during the third trimester. Patient requested diagnostic testing 02/27/2013 12/17/2013 Overview: 02/27/2013 Patient requests quad marker screen. Immunization due 02/27/2013 12/17/2013 Overview: 02/27/2013tetanus vaccine is not up-to-date Decreased movements, a ffecting management of mother, antepartum 06/06/2010 03/21/2013 Raised antibody titer 02/04/2010 12/17/2013 Overview: 03/25/13 - anti-M antibody at a titer of 2, repeat 4 weeks - KK 03/21/13- T&S ordered - KK 02/27/2013Patient had anti-M. antibodies during her last 2 pregnancies. She denies any history of blood transfusions, IV drug use, share needles. Supervision of other high-risk (V23.89) 01/28/2010 03/21/2013 documented as of this encounter (statuses as of 03/19/2022) [facility] History of Past illness Narrative* Problem Noted Date Resolved Date Unspecified disorder of lower leg joint 08/31/20 14 10/14/2018 History of depression, currently preg nant 02/27/2013 12/17/2013 Overview: 02/27/2013 Pt has a history of depression with her first . She has been off medication for over 2 years. She believes she is doing well off the medication. Discussed increased risks of depression during and and importance of reporting the development or worsening of symptoms should they occur. Pt denies ever having any suicidal thoughts or tendencies or thoughts of hurting others. Family history of carrier of genetic disease 09/201312/17/2013 Overview: 02/20/2013Pt states she is a carrier of sickle cell. She is adopted and knows some of her family, but she is unaware of anyone with the disease. There are other blood relatives that are carriers as well. The father of the baby has never been tested. Father of the baby with Johnston Syndrome. History of herpes genitalis 02/27/201311/20 Overview: 03/21/13 - prophylaxis at 36wks - KK 02/27/2013Patient has a history of genital herpes. She is advised of the importance of reporting any outbreaks during especially during the third trimester. Patient requested diagnostic testing 02/27/2013 12/17/2013 Overview: 02/27/2013 Patient requests quad marker screen. Immunization due 02/27/2013 12/17/2013 Overview: 02/27/2013tetanus vaccine is not up-to-date Decreased movements, a ffecting management of mother, antepartum 06/06/2010 03/21/2013 Raised antibody titer 02/04/2010 12/17/2013 Overview: 03/25/13 - anti-M antibody at a titer of 2, repeat 4 weeks - KK 03/21/13- T&S ordered - KK 02/27/2013Patient had anti-M. antibodies during her last 2 pregnancies. She denies any history of blood transfusions, IV drug use, share needles. Supervision of other high-risk (V23.89) 01/28/2010 03/21/2013 documented as of this encounter (statuses as of 05/31/2022) [facility] History of Past illness Narrative* Problem Noted Date Resolved Date Unspecified disorder of lower leg joint 08/31/20 14 10/14/2018 History of depression, currently preg nant 02/27/2013 12/17/2013 Overview: 02/27/2013 Pt has a history of depression with her first . She has been off medication for over 2 years. She believes she is doing well off the medication. Discussed increased risks of depression during and and importance of reporting the development or worsening of symptoms should they occur. Pt denies ever having any suicidal thoughts or tendencies or thoughts of hurting others. Family history of carrier of genetic disease 09/201312/17/2013 Overview: 02/20/2013Pt states she is a carrier of sickle cell. She is adopted and knows some of her family, but she is unaware of anyone with the disease. There are other blood relatives that are carriers as well. The father of the baby has never been tested. Father of the baby with Johnston Syndrome. History of herpes genitalis 02/27/201311/20 Overview: 03/21/13 - prophylaxis at 36wks - KK 02/27/2013Patient has a history of genital herpes. She is advised of the importance of reporting any outbreaks during especially during the third trimester. Patient requested diagnostic testing 02/27/2013 12/17/2013 Overview: 02/27/2013 Patient requests quad marker screen. Immunization due 02/27/2013 12/17/2013 Overview: 02/27/2013tetanus vaccine is not up-to-date Decreased movements, a ffecting management of mother, antepartum 06/06/2010 03/21/2013 Raised antibody titer 02/04/2010 12/17/2013 Overview: 03/25/13 - anti-M antibody at a titer of 2, repeat 4 weeks - KK 03/21/13- T&S ordered - KK 02/27/2013Patient had anti-M. antibodies during her last 2 pregnancies. She denies any history of blood transfusions, IV drug use, share needles. Supervision of other high-risk (V23.89) 01/28/2010 03/21/2013 documented as of this encounter (statuses as of 05/31/2022) [facility] History of Past illness Narrative* Problem Noted Date Resolved Date Unspecified disorder of lower leg joint 08/31/20 14 10/14/2018 History of depression, currently preg nant 02/27/2013 12/17/2013 Overview: 02/27/2013 Pt has a history of depression with her first . She has been off medication for over 2 years. She believes she is doing well off the medication. Discussed increased risks of depression during and and importance of reporting the development or worsening of symptoms should they occur. Pt denies ever having any suicidal thoughts or tendencies or thoughts of hurting others. Family history of carrier of genetic disease 09/201312/17/2013 Overview: 02/20/2013Pt states she is a carrier of sickle cell. She is adopted and knows some of her family, but she is unaware of anyone with the disease. There are other blood relatives that are carriers as well. The father of the baby has never been tested. Father of the baby with Johnston Syndrome. History of herpes genitalis 02/27/201311/20 Overview: 03/21/13 - prophylaxis at 36wks - 02/27/2013Patient has a history of genital herpes. She is advised of the importance of reporting any outbreaks during especially during the third trimester. Patient requested diagnostic testing 02/27/2013 12/17/2013 Overview: 02/27/2013 Patient requests quad marker screen. Immunization due 02/27/2013 12/17/2013 Overview: 02/27/2013tetanus vaccine is not up-to-date Decreased movements, a ffecting management of mother, antepartum 06/06/2010 03/21/2013 Raised antibody titer 02/04/2010 12/17/2013 Overview: 03/25/13 - anti-M antibody at a titer of 2, repeat 4 weeks - KK 03/21/13- T&S ordered - 02/27/2013Patient had anti-M. antibodies during her last 2 pregnancies. She denies any history of blood transfusions, IV drug use, share needles. Supervision of other high-risk (V23.89) 01/28/2010 03/21/2013 documented as of this encounter (statuses as of 06/07/2022) [facility] History of Past illness Narrative* Problem Noted Date Resolved Date Unspecified disorder of lower leg joint 08/31/20 14 10/14/2018 History of depression, currently preg nant 02/27/2013 12/17/2013 Overview: 02/27/2013 Pt has a history of depression with her first . She has been off medication for over 2 years. She believes she is doing well off the medication. Discussed increased risks of depression during and and importance of reporting the development or worsening of symptoms should they occur. Pt denies ever having any suicidal thoughts or tendencies or thoughts of hurting others. Family history of carrier of genetic disease 09/201312/17/2013 Overview: 02/20/2013Pt states she is a carrier of sickle cell. She is adopted and knows some of her family, but she is unaware of anyone with the disease. There are other blood relatives that are carriers as well. The father of the baby has never been tested. Father of the baby with Johnston Syndrome. History of herpes genitalis 02/27/201311/20 Overview: 03/21/13 - prophylaxis at 36wks - KK 02/27/2013Patient has a history of genital herpes. She is advised of the importance of reporting any outbreaks during especially during the third trimester. Patient requested diagnostic testing 02/27/2013 12/17/2013 Overview: 02/27/2013 Patient requests quad marker screen. Immunization due 02/27/2013 12/17/2013 Overview: 02/27/2013tetanus vaccine is not up-to-date Decreased movements, a ffecting management of mother, antepartum 06/06/2010 03/21/2013 Raised antibody titer 02/04/2010 12/17/2013 Overview: 03/25/13 - anti-M antibody at a titer of 2, repeat 4 weeks - KK 03/21/13- T&S ordered - KK 02/27/2013Patient had anti-M. antibodies during her last 2 pregnancies. She denies any history of blood transfusions, IV drug use, share needles. Supervision of other high-risk (V23.89) 01/28/2010 03/21/2013 documented as of this encounter (statuses as of 06/15/2022) [facility] History of Past illness Narrative* Problem Noted Date Resolved Date Unspecified disorder of lower leg joint 08/31/20 14 10/14/2018 History of depression, currently preg nant 02/27/2013 12/17/2013 Overview: 02/27/2013 Pt has a history of depression with her first . She has been off medication for over 2 years. She believes she is doing well off the medication. Discussed increased risks of depression during and and importance of reporting the development or worsening of symptoms should they occur. Pt denies ever having any suicidal thoughts or tendencies or thoughts of hurting others. Family history of carrier of genetic disease 09/201312/17/2013 Overview: 02/20/2013Pt states she is a carrier of sickle cell. She is adopted and knows some of her family, but she is unaware of anyone with the disease. There are other blood relatives that are carriers as well. The father of the baby has never been tested. Father of the baby with Johnston Syndrome. History of herpes genitalis 02/27/201311/20 Overview: 03/21/13 - prophylaxis at 36wks - 02/27/2013Patient has a history of genital herpes. She is advised of the importance of reporting any outbreaks during especially during the third trimester. Patient requested diagnostic testing 02/27/2013 12/17/2013 Overview: 02/27/2013 Patient requests quad marker screen. Immunization due 02/27/2013 12/17/2013 Overview: 02/27/2013tetanus vaccine is not up-to-date Decreased movements, a ffecting management of mother, antepartum 06/06/2010 03/21/2013 Raised antibody titer 02/04/2010 12/17/2013 Overview: 03/25/13 - anti-M antibody at a titer of 2, repeat 4 weeks - KK 03/21/13- T&S ordered - 02/27/2013Patient had anti-M. antibodies during her last 2 pregnancies. She denies any history of blood transfusions, IV drug use, share needles. Supervision of other high-risk (V23.89) 01/28/2010 03/21/2013 documented as of this encounter (statuses as of 06/20/2022) [facility] History of Past illness Narrative* Problem Noted Date Resolved Date Unspecified disorder of lower leg joint 08/31/20 14 10/14/2018 History of depression, currently preg nant 02/27/2013 12/17/2013 Overview: 02/27/2013 Pt has a history of depression with her first . She has been off medication for over 2 years. She believes she is doing well off the medication. Discussed increased risks of depression during and and importance of reporting the development or worsening of symptoms should they occur. Pt denies ever having any suicidal thoughts or tendencies or thoughts of hurting others. Family history of carrier of genetic disease 09/201312/17/2013 Overview: 02/20/2013Pt states she is a carrier of sickle cell. She is adopted and knows some of her family, but she is unaware of anyone with the disease. There are other blood relatives that are carriers as well. The father of the baby has never been tested. Father of the baby with Johnston Syndrome. History of herpes genitalis 02/27/201311/20 Overview: 03/21/13 - prophylaxis at 36wks - 02/27/2013Patient has a history of genital herpes. She is advised of the importance of reporting any outbreaks during especially during the third trimester. Patient requested diagnostic testing 02/27/2013 12/17/2013 Overview: 02/27/2013 Patient requests quad marker screen. Immunization due 02/27/2013 12/17/2013 Overview: 02/27/2013tetanus vaccine is not up-to-date Decreased movements, a ffecting management of mother, antepartum 06/06/2010 03/21/2013 Raised antibody titer 02/04/2010 12/17/2013 Overview: 03/25/13 - anti-M antibody at a titer of 2, repeat 4 weeks - 03/21/13- T&S ordered - 02/27/2013Patient had anti-M. antibodies during her last 2 pregnancies. She denies any history of blood transfusions, IV drug use, share needles. Supervision of other high-risk (V23.89) 01/28/2010 03/21/2013 documented as of this encounter (statuses as of 06/22/2022) [facility] History of Past illness Narrative* Problem Noted Date Resolved Date Unspecified disorder of lower leg joint 08/31/20 14 10/14/2018 History of depression, currently preg nant 02/27/2013 12/17/2013 Overview: 02/27/2013 Pt has a history of depression with her first . She has been off medication for over 2 years. She believes she is doing well off the medication. Discussed increased risks of depression during and and importance of reporting the development or worsening of symptoms should they occur. Pt denies ever having any suicidal thoughts or tendencies or thoughts of hurting others. Family history of carrier of genetic disease 09/201312/17/2013 Overview: 02/20/2013Pt states she is a carrier of sickle cell. She is adopted and knows some of her family, but she is unaware of anyone with the disease. There are other blood relatives that are carriers as well. The father of the baby has never been tested. Father of the baby with Johnston Syndrome. History of herpes genitalis 02/27/201311/20 Overview: 03/21/13 - prophylaxis at 36wks - KK 02/27/2013Patient has a history of genital herpes. She is advised of the importance of reporting any outbreaks during especially during the third trimester. Patient requested diagnostic testing 02/27/2013 12/17/2013 Overview: 02/27/2013 Patient requests quad marker screen. Immunization due 02/27/2013 12/17/2013 Overview: 02/27/2013tetanus vaccine is not up-to-date Decreased movements, a ffecting management of mother, antepartum 06/06/2010 03/21/2013 Raised antibody titer 02/04/2010 12/17/2013 Overview: 03/25/13 - anti-M antibody at a titer of 2, repeat 4 weeks - KK 03/21/13- T&S ordered - KK 02/27/2013Patient had anti-M. antibodies during her last 2 pregnancies. She denies any history of blood transfusions, IV drug use, share needles. Supervision of other high-risk (V23.89) 01/28/2010 03/21/2013 documented as of this encounter (statuses as of 06/22/2022) [facility] History of Past illness Narrative* Problem Noted Date Resolved Date Unspecified disorder of lower leg joint 08/31/20 14 10/14/2018 History of depression, currently preg nant 02/27/2013 12/17/2013 Overview: 02/27/2013 Pt has a history of depression with her first . She has been off medication for over 2 years. She believes she is doing well off the medication. Discussed increased risks of depression during and and importance of reporting the development or worsening of symptoms should they occur. Pt denies ever having any suicidal thoughts or tendencies or thoughts of hurting others. Family history of carrier of genetic disease 09/201312/17/2013 Overview: 02/20/2013Pt states she is a carrier of sickle cell. She is adopted and knows some of her family, but she is unaware of anyone with the disease. There are other blood relatives that are carriers as well. The father of the baby has never been tested. Father of the baby with Johnston Syndrome. History of herpes genitalis 02/27/201311/20 Overview: 03/21/13 - prophylaxis at 36wks - KK 02/27/2013Patient has a history of genital herpes. She is advised of the importance of reporting any outbreaks during especially during the third trimester. Patient requested diagnostic testing 02/27/2013 12/17/2013 Overview: 02/27/2013 Patient requests quad marker screen. Immunization due 02/27/2013 12/17/2013 Overview: 02/27/2013tetanus vaccine is not up-to-date Decreased movements, a ffecting management of mother, antepartum 06/06/2010 03/21/2013 Raised antibody titer 02/04/2010 12/17/2013 Overview: 03/25/13 - anti-M antibody at a titer of 2, repeat 4 weeks - KK 03/21/13- T&S ordered - KK 02/27/2013Patient had anti-M. antibodies during her last 2 pregnancies. She denies any history of blood transfusions, IV drug use, share needles. Supervision of other high-risk (V23.89) 01/28/2010 03/21/2013 documented as of this encounter (statuses as of 06/23/2022) [facility] History of Past illness Narrative* Problem Noted Date Resolved Date Unspecified disorder of lower leg joint 08/31/20 14 10/14/2018 History of depression, currently preg nant 02/27/2013 12/17/2013 Overview: 02/27/2013 Pt has a history of depression with her first . She has been off medication for over 2 years. She believes she is doing well off the medication. Discussed increased risks of depression during and and importance of reporting the development or worsening of symptoms should they occur. Pt denies ever having any suicidal thoughts or tendencies or thoughts of hurting others. Family history of carrier of genetic disease 09/201312/17/2013 Overview: 02/20/2013Pt states she is a carrier of sickle cell. She is adopted and knows some of her family, but she is unaware of anyone with the disease. There are other blood relatives that are carriers as well. The father of the baby has never been tested. Father of the baby with Johnston Syndrome. History of herpes genitalis 02/27/201311/20 Overview: 03/21/13 - prophylaxis at 36wks - KK 02/27/2013Patient has a history of genital herpes. She is advised of the importance of reporting any outbreaks during especially during the third trimester. Patient requested diagnostic testing 02/27/2013 12/17/2013 Overview: 02/27/2013 Patient requests quad marker screen. Immunization due 02/27/2013 12/17/2013 Overview: 02/27/2013tetanus vaccine is not up-to-date Decreased movements, a ffecting management of mother, antepartum 06/06/2010 03/21/2013 Raised antibody titer 02/04/2010 12/17/2013 Overview: 03/25/13 - anti-M antibody at a titer of 2, repeat 4 weeks - KK 03/21/13- T&S ordered - KK 02/27/2013Patient had anti-M. antibodies during her last 2 pregnancies. She denies any history of blood transfusions, IV drug use, share needles. Supervision of other high-risk (V23.89) 01/28/2010 03/21/2013 documented as of this encounter (statuses as of 07/03/2022) [facility] History of Past illness Narrative* Problem Noted Date Resolved Date Unspecified disorder of lower leg joint 08/31/20 14 10/14/2018 History of depression, currently preg nant 02/27/2013 12/17/2013 Overview: 02/27/2013 Pt has a history of depression with her first . She has been off medication for over 2 years. She believes she is doing well off the medication. Discussed increased risks of depression during and and importance of reporting the development or worsening of symptoms should they occur. Pt denies ever having any suicidal thoughts or tendencies or thoughts of hurting others. Family history of carrier of genetic disease 09/201312/17/2013 Overview: 02/20/2013Pt states she is a carrier of sickle cell. She is adopted and knows some of her family, but she is unaware of anyone with the disease. There are other blood relatives that are carriers as well. The father of the baby has never been tested. Father of the baby with Johnston Syndrome. History of herpes genitalis 02/27/201311/20 Overview: 03/21/13 - prophylaxis at 36wks - 02/27/2013Patient has a history of genital herpes. She is advised of the importance of reporting any outbreaks during especially during the third trimester. Patient requested diagnostic testing 02/27/2013 12/17/2013 Overview: 02/27/2013 Patient requests quad marker screen. Immunization due 02/27/2013 12/17/2013 Overview: 02/27/2013tetanus vaccine is not up-to-date Decreased movements, a ffecting management of mother, antepartum 06/06/2010 03/21/2013 Raised antibody titer 02/04/2010 12/17/2013 Overview: 03/25/13 - anti-M antibody at a titer of 2, repeat 4 weeks - 03/21/13- T&S ordered - 02/27/2013Patient had anti-M. antibodies during her last 2 pregnancies. She denies any history of blood transfusions, IV drug use, share needles. Supervision of other high-risk (V23.89) 01/28/2010 03/21/2013 documented as of this encounter (statuses as of 07/03/2022) [facility] History of Past illness Narrative* Problem Noted Date Resolved Date Unspecified disorder of lower leg joint 08/31/20 14 10/14/2018 History of depression, currently preg nant 02/27/2013 12/17/2013 Overview: 02/27/2013 Pt has a history of depression with her first . She has been off medication for over 2 years. She believes she is doing well off the medication. Discussed increased risks of depression during and and importance of reporting the development or worsening of symptoms should they occur. Pt denies ever having any suicidal thoughts or tendencies or thoughts of hurting others. Family history of carrier of genetic disease 09/201312/17/2013 Overview: 02/20/2013Pt states she is a carrier of sickle cell. She is adopted and knows some of her family, but she is unaware of anyone with the disease. There are other blood relatives that are carriers as well. The father of the baby has never been tested. Father of the baby with Johnston Syndrome. History of herpes genitalis 02/27/201311/20 Overview: 03/21/13 - prophylaxis at 36wks - KK 02/27/2013Patient has a history of genital herpes. She is advised of the importance of reporting any outbreaks during especially during the third trimester. Patient requested diagnostic testing 02/27/2013 12/17/2013 Overview: 02/27/2013 Patient requests quad marker screen. Immunization due 02/27/2013 12/17/2013 Overview: 02/27/2013tetanus vaccine is not up-to-date Decreased movements, a ffecting management of mother, antepartum 06/06/2010 03/21/2013 Raised antibody titer 02/04/2010 12/17/2013 Overview: 03/25/13 - anti-M antibody at a titer of 2, repeat 4 weeks - KK 03/21/13- T&S ordered - KK 02/27/2013Patient had anti-M. antibodies during her last 2 pregnancies. She denies any history of blood transfusions, IV drug use, share needles. Supervision of other high-risk (V23.89) 01/28/2010 03/21/2013 documented as of this encounter (statuses as of 09/29/2022) [facility] History of Past illness Narrative* Problem Noted Date Resolved Date Unspecified disorder of lower leg joint 08/31/20 14 10/14/2018 History of depression, currently preg nant 02/27/2013 12/17/2013 Overview: 02/27/2013 Pt has a history of depression with her first . She has been off medication for over 2 years. She believes she is doing well off the medication. Discussed increased risks of depression during and and importance of reporting the development or worsening of symptoms should they occur. Pt denies ever having any suicidal thoughts or tendencies or thoughts of hurting others. Family history of carrier of genetic disease 09/201312/17/2013 Overview: 02/20/2013Pt states she is a carrier of sickle cell. She is adopted and knows some of her family, but she is unaware of anyone with the disease. There are other blood relatives that are carriers as well. The father of the baby has never been tested. Father of the baby with Johnston Syndrome. History of herpes genitalis 02/27/201311/20 Overview: 03/21/13 - prophylaxis at 36wks - KK 02/27/2013Patient has a history of genital herpes. She is advised of the importance of reporting any outbreaks during especially during the third trimester. Patient requested diagnostic testing 02/27/2013 12/17/2013 Overview: 02/27/2013 Patient requests quad marker screen. Immunization due 02/27/2013 12/17/2013 Overview: 02/27/2013tetanus vaccine is not up-to-date Decreased movements, a ffecting management of mother, antepartum 06/06/2010 03/21/2013 Raised antibody titer 02/04/2010 12/17/2013 Overview: 03/25/13 - anti-M antibody at a titer of 2, repeat 4 weeks - KK 03/21/13- T&S ordered - KK 02/27/2013Patient had anti-M. antibodies during her last 2 pregnancies. She denies any history of blood transfusions, IV drug use, share needles. Supervision of other high-risk (V23.89) 01/28/2010 03/21/2013 documented as of this encounter (statuses as of 10/21/2022) [facility] History of Past illness Narrative* Problem Noted Date Resolved Date Unspecified disorder of lower leg joint 08/31/20 14 10/14/2018 History of depression, currently preg nant 02/27/2013 12/17/2013 Overview: 02/27/2013 Pt has a history of depression with her first . She has been off medication for over 2 years. She believes she is doing well off the medication. Discussed increased risks of depression during and and importance of reporting the development or worsening of symptoms should they occur. Pt denies ever having any suicidal thoughts or tendencies or thoughts of hurting others. Family history of carrier of genetic disease 09/201312/17/2013 Overview: 02/20/2013Pt states she is a carrier of sickle cell. She is adopted and knows some of her family, but she is unaware of anyone with the disease. There are other blood relatives that are carriers as well. The father of the baby has never been tested. Father of the baby with Johnston Syndrome. History of herpes genitalis 02/27/201311/20 Overview: 03/21/13 - prophylaxis at 36wks - KK 02/27/2013Patient has a history of genital herpes. She is advised of the importance of reporting any outbreaks during especially during the third trimester. Patient requested diagnostic testing 02/27/2013 12/17/2013 Overview: 02/27/2013 Patient requests quad marker screen. Immunization due 02/27/2013 12/17/2013 Overview: 02/27/2013tetanus vaccine is not up-to-date Decreased movements, a ffecting management of mother, antepartum 06/06/2010 03/21/2013 Raised antibody titer 02/04/2010 12/17/2013 Overview: 03/25/13 - anti-M antibody at a titer of 2, repeat 4 weeks - KK 03/21/13- T&S ordered - KK 02/27/2013Patient had anti-M. antibodies during her last 2 pregnancies. She denies any history of blood transfusions, IV drug use, share needles. Supervision of other high-risk (V23.89) 01/28/2010 03/21/2013 documented as of this encounter (statuses as of 10/23/2022) [facility] History of Past illness Narrative* Problem Noted Date Resolved Date Unspecified disorder of lower leg joint 08/31/20 14 10/14/2018 History of depression, currently preg nant 02/27/2013 12/17/2013 Overview: 02/27/2013 Pt has a history of depression with her first . She has been off medication for over 2 years. She believes she is doing well off the medication. Discussed increased risks of depression during and and importance of reporting the development or worsening of symptoms should they occur. Pt denies ever having any suicidal thoughts or tendencies or thoughts of hurting others. Family history of carrier of genetic disease 09/201312/17/2013 Overview: 02/20/2013Pt states she is a carrier of sickle cell. She is adopted and knows some of her family, but she is unaware of anyone with the disease. There are other blood relatives that are carriers as well. The father of the baby has never been tested. Father of the baby with Johnston Syndrome. History of herpes genitalis 02/27/201311/20 Overview: 03/21/13 - prophylaxis at 36wks - KK 02/27/2013Patient has a history of genital herpes. She is advised of the importance of reporting any outbreaks during especially during the third trimester. Patient requested diagnostic testing 02/27/2013 12/17/2013 Overview: 02/27/2013 Patient requests quad marker screen. Immunization due 02/27/2013 12/17/2013 Overview: 02/27/2013tetanus vaccine is not up-to-date Decreased movements, a ffecting management of mother, antepartum 06/06/2010 03/21/2013 Raised antibody titer 02/04/2010 12/17/2013 Overview: 03/25/13 - anti-M antibody at a titer of 2, repeat 4 weeks - KK 03/21/13- T&S ordered - KK 02/27/2013Patient had anti-M. antibodies during her last 2 pregnancies. She denies any history of blood transfusions, IV drug use, share needles. Supervision of other high-risk (V23.89) 01/28/2010 03/21/2013 documented as of this encounter (statuses as of 10/23/2022) [facility] History of Past illness Narrative* Problem Noted Date Resolved Date Unspecified disorder of lower leg joint 08/31/20 14 10/14/2018 History of depression, currently preg nant 02/27/2013 12/17/2013 Overview: 02/27/2013 Pt has a history of depression with her first . She has been off medication for over 2 years. She believes she is doing well off the medication. Discussed increased risks of depression during and and importance of reporting the development or worsening of symptoms should they occur. Pt denies ever having any suicidal thoughts or tendencies or thoughts of hurting others. Family history of carrier of genetic disease 09/201312/17/2013 Overview: 02/20/2013Pt states she is a carrier of sickle cell. She is adopted and knows some of her family, but she is unaware of anyone with the disease. There are other blood relatives that are carriers as well. The father of the baby has never been tested. Father of the baby with Johnston Syndrome. History of herpes genitalis 02/27/201311/20 Overview: 03/21/13 - prophylaxis at 36wks - KK 02/27/2013Patient has a history of genital herpes. She is advised of the importance of reporting any outbreaks during especially during the third trimester. Patient requested diagnostic testing 02/27/2013 12/17/2013 Overview: 02/27/2013 Patient requests quad marker screen. Immunization due 02/27/2013 12/17/2013 Overview: 02/27/2013tetanus vaccine is not up-to-date Decreased movements, a ffecting management of mother, antepartum 06/06/2010 03/21/2013 Raised antibody titer 02/04/2010 12/17/2013 Overview: 03/25/13 - anti-M antibody at a titer of 2, repeat 4 weeks - KK 03/21/13- T&S ordered - KK 02/27/2013Patient had anti-M. antibodies during her last 2 pregnancies. She denies any history of blood transfusions, IV drug use, share needles. Supervision of other high-risk (V23.89) 01/28/2010 03/21/2013 documented as of this encounter (statuses as of 11/19/2022) [facility] History of Past illness Narrative* Problem Noted Date Resolved Date Unspecified disorder of lower leg joint 08/31/20 14 10/14/2018 History of depression, currently preg nant 02/27/2013 12/17/2013 Overview: 02/27/2013 Pt has a history of depression with her first . She has been off medication for over 2 years. She believes she is doing well off the medication. Discussed increased risks of depression during and and importance of reporting the development or worsening of symptoms should they occur. Pt denies ever having any suicidal thoughts or tendencies or thoughts of hurting others. Family history of carrier of genetic disease 09/201312/17/2013 Overview: 02/20/2013Pt states she is a carrier of sickle cell. She is adopted and knows some of her family, but she is unaware of anyone with the disease. There are other blood relatives that are carriers as well. The father of the baby has never been tested. Father of the baby with Johnston Syndrome. History of herpes genitalis 02/27/201311/20 Overview: 03/21/13 - prophylaxis at 36wks - KK 02/27/2013Patient has a history of genital herpes. She is advised of the importance of reporting any outbreaks during especially during the third trimester. Patient requested diagnostic testing 02/27/2013 12/17/2013 Overview: 02/27/2013 Patient requests quad marker screen. Immunization due 02/27/2013 12/17/2013 Overview: 02/27/2013tetanus vaccine is not up-to-date Decreased movements, a ffecting management of mother, antepartum 06/06/2010 03/21/2013 Raised antibody titer 02/04/2010 12/17/2013 Overview: 03/25/13 - anti-M antibody at a titer of 2, repeat 4 weeks - KK 03/21/13- T&S ordered - KK 02/27/2013Patient had anti-M. antibodies during her last 2 pregnancies. She denies any history of blood transfusions, IV drug use, share needles. Supervision of other high-risk (V23.89) 01/28/2010 03/21/2013 documented as of this encounter (statuses as of 12/18/2022) [facility] History of Past illness Narrative* Problem Noted Date Resolved Date Unspecified disorder of lower leg joint 08/31/20 14 10/14/2018 History of depression, currently preg nant 02/27/2013 12/17/2013 Overview: 02/27/2013 Pt has a history of depression with her first . She has been off medication for over 2 years. She believes she is doing well off the medication. Discussed increased risks of depression during and and importance of reporting the development or worsening of symptoms should they occur. Pt denies ever having any suicidal thoughts or tendencies or thoughts of hurting others. Family history of carrier of genetic disease 09/201312/17/2013 Overview: 02/20/2013Pt states she is a carrier of sickle cell. She is adopted and knows some of her family, but she is unaware of anyone with the disease. There are other blood relatives that are carriers as well. The father of the baby has never been tested. Father of the baby with Johnston Syndrome. History of herpes genitalis 02/27/201311/20 Overview: 03/21/13 - prophylaxis at 36wks - 02/27/2013Patient has a history of genital herpes. She is advised of the importance of reporting any outbreaks during especially during the third trimester. Patient requested diagnostic testing 02/27/2013 12/17/2013 Overview: 02/27/2013 Patient requests quad marker screen. Immunization due 02/27/2013 12/17/2013 Overview: 02/27/2013tetanus vaccine is not up-to-date Decreased movements, a ffecting management of mother, antepartum 06/06/2010 03/21/2013 Raised antibody titer 02/04/2010 12/17/2013 Overview: 03/25/13 - anti-M antibody at a titer of 2, repeat 4 weeks - KK 03/21/13- T&S ordered - KK 02/27/2013Patient had anti-M. antibodies during her last 2 pregnancies. She denies any history of blood transfusions, IV drug use, share needles. Supervision of other high-risk (V23.89) 01/28/2010 03/21/2013 documented as of this encounter (statuses as of 01/26/2023) [facility] History of Past illness Narrative* Problem Noted Date Resolved Date Unspecified disorder of lower leg joint 08/31/20 14 10/14/2018 History of depression, currently preg nant 02/27/2013 12/17/2013 Overview: 02/27/2013 Pt has a history of depression with her first . She has been off medication for over 2 years. She believes she is doing well off the medication. Discussed increased risks of depression during and and importance of reporting the development or worsening of symptoms should they occur. Pt denies ever having any suicidal thoughts or tendencies or thoughts of hurting others. Family history of carrier of genetic disease 09/201312/17/2013 Overview: 02/20/2013Pt states she is a carrier of sickle cell. She is adopted and knows some of her family, but she is unaware of anyone with the disease. There are other blood relatives that are carriers as well. The father of the baby has never been tested. Father of the baby with Johnston Syndrome. History of herpes genitalis 02/27/201311/20 Overview: 03/21/13 - prophylaxis at 36wks - KK 02/27/2013Patient has a history of genital herpes. She is advised of the importance of reporting any outbreaks during especially during the third trimester. Patient requested diagnostic testing 02/27/2013 12/17/2013 Overview: 02/27/2013 Patient requests quad marker screen. Immunization due 02/27/2013 12/17/2013 Overview: 02/27/2013tetanus vaccine is not up-to-date Decreased movements, a ffecting management of mother, antepartum 06/06/2010 03/21/2013 Raised antibody titer 02/04/2010 12/17/2013 Overview: 03/25/13 - anti-M antibody at a titer of 2, repeat 4 weeks - KK 03/21/13- T&S ordered - KK 02/27/2013Patient had anti-M. antibodies during her last 2 pregnancies. She denies any history of blood transfusions, IV drug use, share needles. Supervision of other high-risk (V23.89) 01/28/2010 03/21/2013 documented as of this encounter (statuses as of 02/05/2023) [facility] History of Past illness Narrative* Problem Noted Date Resolved Date Unspecified disorder of lower leg joint 08/31/20 14 10/14/2018 History of depression, currently preg nant 02/27/2013 12/17/2013 Overview: 02/27/2013 Pt has a history of depression with her first . She has been off medication for over 2 years. She believes she is doing well off the medication. Discussed increased risks of depression during and and importance of reporting the development or worsening of symptoms should they occur. Pt denies ever having any suicidal thoughts or tendencies or thoughts of hurting others. Family history of carrier of genetic disease 09/201312/17/2013 Overview: 02/20/2013Pt states she is a carrier of sickle cell. She is adopted and knows some of her family, but she is unaware of anyone with the disease. There are other blood relatives that are carriers as well. The father of the baby has never been tested. Father of the baby with Johnston Syndrome. History of herpes genitalis 02/27/201311/20 Overview: 03/21/13 - prophylaxis at 36wks - KK 02/27/2013Patient has a history of genital herpes. She is advised of the importance of reporting any outbreaks during especially during the third trimester. Patient requested diagnostic testing 02/27/2013 12/17/2013 Overview: 02/27/2013 Patient requests quad marker screen. Immunization due 02/27/2013 12/17/2013 Overview: 02/27/2013tetanus vaccine is not up-to-date Decreased movements, a ffecting management of mother, antepartum 06/06/2010 03/21/2013 Raised antibody titer 02/04/2010 12/17/2013 Overview: 03/25/13 - anti-M antibody at a titer of 2, repeat 4 weeks - KK 03/21/13- T&S ordered - 02/27/2013Patient had anti-M. antibodies during her last 2 pregnancies. She denies any history of blood transfusions, IV drug use, share needles. Supervision of other high-risk (V23.89) 01/28/2010 03/21/2013 documented as of this encounter (statuses as of 02/09/2023) [facility] History of Past illness Narrative* Problem Noted Date Resolved Date Unspecified disorder of lower leg joint 08/31/20 14 10/14/2018 History of depression, currently preg nant 02/27/2013 12/17/2013 Overview: 02/27/2013 Pt has a history of depression with her first . She has been off medication for over 2 years. She believes she is doing well off the medication. Discussed increased risks of depression during and and importance of reporting the development or worsening of symptoms should they occur. Pt denies ever having any suicidal thoughts or tendencies or thoughts of hurting others. Family history of carrier of genetic disease 09/201312/17/2013 Overview: 02/20/2013Pt states she is a carrier of sickle cell. She is adopted and knows some of her family, but she is unaware of anyone with the disease. There are other blood relatives that are carriers as well. The father of the baby has never been tested. Father of the baby with Johnston Syndrome. History of herpes genitalis 02/27/201311/20 Overview: 03/21/13 - prophylaxis at 36wks - 02/27/2013Patient has a history of genital herpes. She is advised of the importance of reporting any outbreaks during especially during the third trimester. Patient requested diagnostic testing 02/27/2013 12/17/2013 Overview: 02/27/2013 Patient requests quad marker screen. Immunization due 02/27/2013 12/17/2013 Overview: 02/27/2013tetanus vaccine is not up-to-date Decreased movements, a ffecting management of mother, antepartum 06/06/2010 03/21/2013 Raised antibody titer 02/04/2010 12/17/2013 Overview: 03/25/13 - anti-M antibody at a titer of 2, repeat 4 weeks - 03/21/13- T&S ordered - 02/27/2013Patient had anti-M. antibodies during her last 2 pregnancies. She denies any history of blood transfusions, IV drug use, share needles. Supervision of other high-risk (V23.89) 01/28/2010 03/21/2013 documented as of this encounter (statuses as of 03/05/2023) [facility] may be information available, but it has not been provided by the sender.[facility] Work Phone: Evaluation note* Diagnosis Pilonidal abscess of elyssa cleft- Primary Pilonidal cyst with abscess [facility] Diagnosis Well adult exam- Primary Routine general medical examination at a health care facility Agoraphobia Agoraphobia without mention of panic attacks Bipolar disorder, in partial remission, most recent episode depressed (HCC) Bipolar I disorder, most recent episode (or current) depressed, in partial or unspecified remission Chronic insomnia Insomnia, unspecified Lung nodules Other nonspecific abnormal finding of lung field Screening for diabetes mellitus Screening for thyroid disorder Screening for lipid disorders Dysphagia, unspecified type Sensation of foreign body in throat Other symptoms involving head and neck Encounter for vitamin deficiency screening Screening for other and unspecified endocrine, nutritional, metabolic, and immunity disorders [facility] [place] [facility]* Diagnosis Dysphagia, unspecified type Sensation of foreign body in throat Other symptoms involving head and neck [facility] [place] [facility] Diagnosis Lung nodules Other nonspecific abnormal finding of lung field [facility] this [facility] [place] [facility]* Diagnosis Bipolar disorder, in partial remission, most recent episode depressed (HCC)- Primary Bipolar I disorder, most recent episode (or current) depressed, in partial or unspecified remission Chronic insomnia Insomnia, unspecified ALFREDO (generalized anxiety disorder) Generalized anxiety disorder documented [facility] this [facility] [place] [facility]* Diagnosis Urinary frequency- Primary SOB (shortness of breath) Shortness of breath [facility] [place] [facility]* Diagnosis Moderate mixed bipolar I disorder (HCC)- Primary Bipolar I disorder, most recent episode (or current) mixed, moderate History of posttraumatic stress disorder (PTSD) documented [facility] this [facility] [place] [facility]* Diagnosis Acute cough- Primary Nasal congestion Other diseases of nasal cavity and sinuses [facility] [place] [facility]* Diagnosis Moderate mixed bipolar I disorder (HCC)- Primary Bipolar I disorder, most recent episode (or current) mixed, moderate Generalized anxiety disorder History of attention deficit hyperactivity disorder (ADHD) [facility] [place] [facility]* Diagnosis Generalized anxiety disorder- Primary Bipolar 1 disorder, depressed, moderate (HCC) Bipolar I disorder, most recent episode (or current) depressed, moderate History of attention deficit hyperactivity disorder (ADHD) History of posttraumatic stress disorder (PTSD) documented in this encounter [facility] [place] [facility]* Diagnosis Cyst near tailbone- Primary Pilonidal cyst without mention of abscess Myalgia Mylagia and myositis, unspecified Arthralgia, unspecified joint Sensation of foreign body in throat Other symptoms involving head and neck Well adult exam Routine general medical examination at a health care facility Elevated serum creatinine Other nonspecific findings on examination of blood Vitamin D deficiency Unspecified vitamin D deficiency Screening for diabetes mellitus Encounter for vitamin deficiency screening Screening for other and unspecified endocrine, nutritional, metabolic, and immunity disorders Screening for thyroid disorder [facility]* Diagnosis NO SHOW- Primary [facility]* Instruction Description Start Date CompletedPatient advised to follow-up with Primary Care Physician for BMI management. [facility] Work Phone: Instructions* Instruction Description Start Date CompletedPatient advised to follow-up with Primary Care Physician for BMI management. [facility] Work Phone: Reason for referral (narrative)* Diagnostic Procedure Only (Routine) - Closed Specialty Diagnoses / Procedures Referred By Portia rivera Referred To Contact US IMAGING Diagnoses Dysphagia, unspecified type Sensation of foreign body in throat Procedures US THYROID/PARATHYROID US SOFT TISSUE HEAD & NECK REAL TIME IMGE Tanisha Anderson APRN.CNP [address] [place] [address] Us Imaging Referral ID Status Reason Start Date Expiration Date V isits Requested Visits Authorized [id number] Closed Auto-Generate d Referral 06/07/2022 07/07/2023 1 1 [facility] Summary Purpose Family History No Family History Records FoundNo Family History Records FoundThere may be information available, but it has not been provided by the sender.There may be information available, but it has not been provided by the sender.No Family History Records FoundNo Family History Records FoundNo Family HistoryRecords Found Advance Directives No Advanced Directives Records FoundDocuments on File Type Date Recorded 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 Expl 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 Advance Directive(s) 10/15/2018 11:01 AM Documents on File Type Date Recorded 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 Expl 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 Advance Directive(s) 10/15/2018 11:01 AM Chief Complaint Chief Complaint Description Start Date right hip post right hip lab ral repair acetabuloplasty chondroplasty synovectomy femoroplasty capsular closure on 01/09/2022 Preliminary chief co mplaint data, not yet signed by the author as of Chief Complaint Description Start Date right hip post right hip lab ral repair acetabuloplasty chondroplasty synovectomy femoroplasty capsular closure on 01/09/2022 Preliminary chief co mplaint data, not yet signed by the author as of Reason for Referral Specialty Diagnoses / Procedures Referred By Portia t Referred To Contact CT IMAGING Diagnoses Lung nodules Procedures CT CHEST WO IVCON DIAGNOSTIC COMPUTED TOMOGRAPHY THORAX W/O CNTRST Tanisha Hughes APRN.PAINT SPRAYING MACHINE OPERATOR HELPER [address] [place] [address] Ct Imaging Referral ID Status Reason Start Date Expiration Date Visits Requested Visits Authorized [id number] Authorized Auto-Generat ed Referral 06/07/2022 11/18/2022 1 1 Specialty Diagnoses / Procedures Referred By Portia t Referred To Contact US IMAGING Diagnoses Dysphagia, unspecified type Sensation of foreign body in throat Procedures US THYROID/PARATHYROID US SOFT TISSUE HEAD & NECK REAL TIME IMGE DOCM Tanisha Hughes, LUPE.PAINT SPRAYING MACHINE OPERATOR HELPER [address] [place] [address] Us Imaging Referral ID Status Reason Start Date Expiration Date Visits Requested Visits Authorized [id number] Authorized Auto-Generat ed Referral 06/07/2022 07/07/2023 1 1 Referral ID Status Reason Start Date Expiration Date V isits Requested Visits Authorized [id number] Closed Auto-Generate d Referral 06/07/2022 11/18/2022 1 1 Specialty Diagnoses / Procedures Referred By Portia t Referred To Contact General Surgery Diagnoses Cyst near tailbone Well adult exam Myalgia Arthralgia, unspecified joint Procedures CONSULT TO GENERAL SURGERY OFFICE/OUTPATIENT [facility] 60-74 MINUTES Tanisha Hughes, BOX OFFICE CLERK.PAINT SPRAYING MACHINE OPERATOR HELPER [address] [place] [address] Referral ID Status Reason Start Date Expiration Date Visits Requested Visits Authorized [id number] Authorized PCP Requested Referral 01/26/2023 01/26/2024 1 1 Additional Source Comments INFORMATION SOURCE (unrecogn ized section and content) DATE CREATED AUTHOR AUTHOR'S ORGANIZ ATION 10/13/2020 [facility] DATE CREATED AUTHOR AUTHOR'S ORGANIZ ATION 05/31/2023 [facility] DATE CREATED AUTHOR AUTHOR'S ORGANIZ ATION 06/29/2023 [facility] DATE CREATED AUTHOR AUTHOR'S ORGANIZ ATION 11/04/2023 [facility] ([place]) Reason for Visit (unrecogniz ed section and content) Reason For Visit Description Start Date Postop - subsequent visit Preliminary reason f or visit data, not yet signed by the author as of right hip post right hip lab ral repair acetabuloplasty chondroplasty synovectomy femoroplasty capsular closure on 01/09/2022 Reason Comments Covid19 Concern Reason Comments LESION, SKIN Reason Comments abscess on tailbone x 3 weeks-she draine d it and now it is back Reason Comments Physical Anxiety Sleep Problem Reason Comments Radiology US Specialty Diagnoses / Procedures Referred By Contac t Referred To Contact US IMAGING Diagnoses Dysphagia, unspecified type Sensation of foreign body in throat Procedures US THYROID/PARATHYROID US SOFT TISSUE HEAD & NECK REAL TIME IMGE DOCM Tanisha Hughes, BOX OFFICE CLERK.PAINT SPRAYING MACHINE OPERATOR HELPER [address] [place] [address] Us Imaging Referral ID Status Reason Start Date Expiration Date V isits Requested Visits Authorized [id number] Closed Auto-Generate d Referral 06/07/2022 07/07/2023 [address] Specialty Diagnoses / Procedures Referred By Contac t Referred To Contact CT IMAGING Diagnoses Lung nodules Procedures CT CHEST WO IVCON DIAGNOSTIC COMPUTED TOMOGRAPHY THORAX W/O CNTRST Tanisah Hughes, BOX OFFICE CLERK.PAINT SPRAYING MACHINE OPERATOR HELPER [address] [place] [address] Ct Imaging Referral ID Status Reason Start Date Expiration Date V isits Requested Visits Authorized [id number] Closed Auto-Generate d Referral 06/07/2022 11/18/2022 1 1 Reason Comments Opened In Error Reason Comments Patient Update Reason Comments Anxiety Depression Specialty Diagnoses / Procedures Referred By Contac t Referred To Contact Family Practice / FAMILY MEDICINE Diagnoses At risk for increased anxiety increased anxiety Procedures OFFICE/OUTPATIENT ESTABLISHED MOD MDM 30-39 MIN 4C EST Rober Mojica, DO [address] [place] [address] George Latham APRN.PAINT SPRAYING MACHINE OPERATOR HELPER [address] [place] [address] Referral ID Status Reason Start Date Expiration Date V isits Requested Visits Authorized [id number] Authorized 07/03/2022 10/01/2022 10 10 Reason Comments outreach Reason Comments Cough Pt reported chest co ngestion, N/V, urinary frequency x4 days. Reason Comments New Patient Evaluation Reason Comments Nasal Congestion Cough Reason Comments Head Congestion Cough, sinus pain an d pressure, HAMMOND, fever x4 days Reason Comments Migraine Fever Reason Comments Follow Up Reason Comments Pain, Back Lower back, Abcess d rained in [place] - October 2022 Reason Comments No Show Reason Comments Results Reason Onset Date Comments Refill Request 03/05/2023 Source Comments (unrecognize d section and content) In the event this informatio n is protected by the Federal Confidentiality of Alcohol and Drug Abuse Patient Records regulations: The Federal rules restrict any use of the information to criminally investigate or prosecute any alcohol or drug abuse patient.[facility] the event this information is protected by the Federal Confidentiality of Alcohol and Drug Abuse Patient Records regulations: The Federal rules restrict any use of the information to criminally investigate or prosecute any alcohol or drug abuse patient.[facility] the event this information is protected by the Federal Confidentiality of Alcohol and Drug Abuse Patient Records regulations: The Federal rules restrict any use of the information to criminally investigate or prosecute any alcohol or drug abuse patient.[facility] the event this information is protected by the Federal Confidentiality of Alcohol and Drug Abuse Patient Records regulations: The Federal rules restrict any use of the information to criminally investigate or prosecute any alcohol or drug abuse patient.[facility] the event this information is protected by the Federal Confidentiality of Alcohol and Drug Abuse Patient Records regulations: The Federal rules restrict any use of the information to criminally investigate or prosecute any alcohol or drug abuse patient.[facility]In the event this information is protected by the Federal Confidentiality of Alcohol and Drug Abuse Patient Records regulations: The Federal rules restrict any use of the information to criminally investigate or prosecute any alcohol or drug abuse patient.[facility]In the event this information is protected by the Federal Confidentiality of Alcohol and Drug Abuse Patient Records regulations: The Federal rules restrict any use of the information to criminally investigate or prosecute any alcohol or drug abuse patient.[facility]In the event this information is protected by the Federal Confidentiality of Alcohol and Drug Abuse Patient Records regulations: The Federal rules restrict any use of the information to criminally investigate or prosecute any alcohol or drug abuse patient.[facility]In the event this information is protected by the Federal Confidentiality of Alcohol and Drug Abuse Patient Records regulations: The Federal rules restrict any use of the information to criminally investigate or prosecute any alcohol or drug abuse patient.[facility]In the event this information is protected by the Federal Confidentiality of Alcohol and Drug Abuse Patient Records regulations: The Federal rules restrict any use of the information to criminally investigate or prosecute any alcohol or drug abuse patient.[facility]In the event this information is protected by the Federal Confidentiality of Alcohol and Drug Abuse Patient Records regulations: The Federal rules restrict any use of the information to criminally investigate or prosecute any alcohol or drug abuse patient.[facility]In the event this information is protected by the Federal Confidentiality of Alcohol and Drug Abuse Patient Records regulations: The Federal rules restrict any use of the information to criminally investigate or prosecute any alcohol or drug abuse patient.[facility]In the event this information is protected by the Federal Confidentiality of Alcohol and Drug Abuse Patient Records regulations: The Federal rules restrict any use of the information to criminally investigate or prosecute any alcohol or drug abuse patient.[facility]In the event this information is protected by the Federal Confidentiality of Alcohol and Drug Abuse Patient Records regulations: The Federal rules restrict any use of the information to criminally investigate or prosecute any alcohol or drug abuse patient.[facility]In the event this information is protected by the Federal Confidentiality of Alcohol and Drug Abuse Patient Records regulations: The Federal rules restrict any use of the information to criminally investigate or prosecute any alcohol or drug abuse patient.[facility]In the event this information is protected by the Federal Confidentiality of Alcohol and Drug Abuse Patient Records regulations: The Federal rules restrict any use of the information to criminally investigate or prosecute any alcohol or drug abuse patient.[facility]In the event this information is protected by the Federal Confidentiality of Alcohol and Drug Abuse Patient Records regulations: The Federal rules restrict any use of the information to criminally investigate or prosecute any alcohol or drug abuse patient.[facility]In the event this information is protected by the Federal Confidentiality of Alcohol and Drug Abuse Patient Records regulations: The Federal rules restrict any use of the information to criminally investigate or prosecute any alcohol or drug abuse patient.[facility]In the event this information is protected by the Federal Confidentiality of Alcohol and Drug Abuse Patient Records regulations: The Federal rules restrict any use of the information to criminally investigate or prosecute any alcohol or drug abuse patient.[facility] HospitalIn the event this information is protected by the Federal Confidentiality of Alcohol and Drug Abuse Patient Records regulations: The Federal rules restrict any use of the information to criminally investigate or prosecute any alcohol or drug abuse patient.[facility]In the event this information is protected by the Federal Confidentiality of Alcohol and Drug Abuse Patient Records regulations: The Federal rules restrict any use of the information to criminally investigate or prosecute any alcohol or drug abuse patient.[facility]In the event this information is protected by the Federal Confidentiality of Alcohol and Drug Abuse Patient Records regulations: The Federal rules restrict any use of the information to criminally investigate or prosecute any alcohol or drug abuse patient.[facility] HospitalIn the event this information is protected by the Federal Confidentiality of Alcohol and Drug Abuse Patient Records regulations: The Federal rules restrict any use of the information to criminally investigate or prosecute any alcohol or drug abuse patient.[facility] Care Teams (unrecognized sec tion and content) Butter Liquefier Relationship Specialty Start Date End Date Rober Mojica, DO [address] [place] [address] PCP - General Family Practice 10/28/14 Butter Liquefier Relationship Specialty Start Date End Date Rober Mojica DO [address] [place] [address] PCP - General Family Practice 10/28/14 Butter Liquefier Relationship Specialty Start Date End Date Rober Mojica DO [address] [place] [address] PCP - General Family Practice 10/28/14 Butter Liquefier Relationship Specialty Start Date End Date Rober Mojica DO [address] [place] [address] PCP - General Family Practice 10/28/14 Butter Liquefier Relationship Specialty Start Date End Date Rober Mojica DO [address] [place] [address] PCP - General Family Practice 10/28/14 Butter Liquefier Relationship Specialty Start Date End Date Rober Mojica, DO [address] [place] [address] PCP - General Family Practice 10/28/14 Butter Liquefier Relationship Specialty Start Date End Date Rober Mojica, DO [address] [place] [address] PCP - General Family Practice 10/28/14 Butter Liquefier Relationship Specialty Start Date End Date Rober Mojica, DO [address] [place] [address] PCP - General Family Practice 10/28/14 Butter Liquefier Relationship Specialty Start Date End Date Rober Mojica, DO [address] [place] [address] PCP - General Family Practice 10/28/14 Butter Liquefier Relationship Specialty Start Date End Date Rober Mojica, DO [address] [place] [address] PCP - General Family Practice 10/28/14 Butter Liquefier Relationship Specialty Start Date End Date Rober Mojica, DO [address] [place] [address] PCP - General Family Medicine 10/28/14 Butter Liquefier Relationship Specialty Start Date End Date Rober Mjoica, DO [address] [place] [address] PCP - General Family Medicine 10/28/14 Butter Liquefier Relationship Specialty Start Date End Date Rober Mojica, DO [address] [place] [address] PCP - General Family Medicine 10/28/14 Butter Liquefier Relationship Specialty Start Date End Date Rober Mojica, DO [address] [place] [address] PCP - General Family Medicine 10/28/14 Butter Liquefier Relationship Specialty Start Date End Date Rober Mojica, DO [address] [facility] [address] PCP - General Family Medicine 10/28/14 Butter Liquefier Relationship Specialty Start Date End Date Rober Mojica, DO [address] [place] [address] PCP - General Family Medicine 10/28/14 Butter Liquefier Relationship Specialty Start Date End Date Rober Mojica, DO [address] [place] [address] PCP - [facility] 10/28/14 Butter Liquefier Relationship Specialty Start Date End Date Rober Mojica, DO [address] [facility] [address] PCP - General [facility] 10/28/14 Butter Liquefier Relationship Specialty Start Date End Date Rober Mojica, DO [address] [facility] [address] PCP - General Family [facility] 10/28/14 FOR RECORDS PERTAINING TO PATIENTS WHO ARE OR HAVE BEEN ENROLLED IN A CHEMICAL DEPENDENCY/SUBSTANCEABUSE PROGRAM, SOME INFORMATION MAY BE OMITTED. This clinical summary was aggregated from multiple sources. Caution should be exercised in using it in the provision of clinical care. This summary normalizes information from multiple sources, and as a consequence, information in this document may materially change the coding, format and clinical context of patient data. In addition, data may be omitted in some cases. CLINICAL DECISIONS SHOULD BE BASED ON THE PRIMARY CLINICAL RECORDS. [facility] [employer] provides no warranty or guarantee of the accuracy or completeness of information in this document.
[2023-11-25] MEDS: Oxycodone/Apap 5/325 Tablet PO (10:42)
== END 2023-11-25 10:45 | disposition home or self-care (01) ==
PROVIDERS: Emergency Provider Emergency Medicine; PCP Nurse Practitioner Adult Health; Visit Provider Emergency Medicine
DX: M25.462 Effusion, left knee (principal); F12.90 Cannabis use, unspecified, uncomplicated; F17.210 Nicotine dependence, cigarettes, uncomplicated; S83.511A Sprain of anterior cruciate ligament of right knee, initial encounter; X58.XXXA Exposure to other specified factors, initial encounter
CPT/HCPCS: 99282

== ENCOUNTER 2023-12-31 10:48 | Day surgery (SDC) | payer OTHER, SELFPAY ==
[2023-12-31] VITALS (9 sets, daily range): BP systolic 112–156; BP diastolic 80–102; PULSE 53–90; RESP 14–16; TEMP 36.3–37.1; O2SAT 95–100; BMI 27.1
--- OUTSIDE RECORDS SUMMARY | 2023-12-31 11:13 | XMS RPT_ITS | CCD ---
Author Name Unknown Address [address] [place] [address] Organization [facility] Care Team Providers Care Social Media Community Manager Name Role Phone Miguel TAVAREZ, Andry Bass Unavailable Nabil Wang PA-C Unavailable Rober Mojica DO [...] Primary Care Unavailable ELLEN, TANISHA Referring Unavailable TANISHA HUGHES Referring Unavailable ROBER MOJICA Primary Care Unavailable [...] Attending Unavailable PROVIDER, UNKNOWN Consulting Unavailable MAST NEWSPAPER DELIVERY COUNSELOR-CONTROLS TECHNICIAN, FLOR Attending Unavailabl e MAST NEWSPAPER DELIVERY COUNSELOR-CONTROLS TECHNICIAN, FLOR Primary Care Unavailabl e MAST NEWSPAPER DELIVERY COUNSELOR-CONTROLS TECHNICIAN, FLOR Primary Care Unavailabl e MAST NEWSPAPER DELIVERY COUNSELOR-CONTROLS TECHNICIAN, FLOR Attending Unavailabl e Allergies Allergy Classification Reported Allergen(s) Allergy Type Date of Onset Reaction(s) Facility (2 sources) Azithromycin Drug Allergy 12-10-2020 rash [facility] Work Phone: (2 sources) RED DYE 40 drug allergy 12-10-2020 [facility] Work Phone: (20 sources) Azithromycin; Translations: [AZITHROMYCIN] Drug Allergy 11-17-2009 [facility] (1 source) Amoxicillin Drug Allergy [facility] (1 source) Azithromycin Drug Allergy [facility] Medications Current Medications Medication Drug Class(es) [...] 13:47-0500 Body temperature 99.5 [degF] Tanisha Diazman NEWSPAPER DELIVERY COUNSELOR.CONTROLS TECHNICIAN Work Phone: [facility] 01-26-2023 13:47-0500 Body weight 85.73 kg Tanisha Diazman NEWSPAPER DELIVERY COUNSELOR.CONTROLS TECHNICIAN Work Phone: [facility] 01-26-2023 13:47-0500 Diastolic blood pressure 84 mm[Hg] Tanisha Ellen NEWSPAPER DELIVERY COUNSELOR.CONTROLS TECHNICIAN Work Phone: [facility] 01-26-2023 13:47-0500 Heart rate 83 /min Tanisha Diazman NEWSPAPER DELIVERY COUNSELOR.CONTROLS TECHNICIAN Work Phone: [facility] 01-26-2023 13:47-0500 Respiratory rate 16 /min Tanisha Diazman NEWSPAPER DELIVERY COUNSELOR.CONTROLS TECHNICIAN Work Phone: [facility] 01-26-2023 13:47-0500 SaO2% (BldA) [Mass fraction] 98 % Tanisha Ellen NEWSPAPER DELIVERY COUNSELOR.CONTROLS TECHNICIAN Work Phone: [facility] 01-26-2023 13:47-0500 Systolic blood pressure 122 mm[Hg] Tanisha Ellen NEWSPAPER DELIVERY COUNSELOR.CONTROLS TECHNICIAN Work Phone: [facility] 10-23-2022 11:02-0500 Body temperature 99.61 [degF] Chani Vaughn PA-C Work Phone: [facility] 10-23-2022 11:02-0500 Body weight 84.91 kg Chani Bogner PA-C Work Phone: [facility] 10-23-2022 11:02-0500 Diastolic blood pressure 86 mm[Hg] Chani Bogner PA-C Work Phone: [facility] 10-23-2022 11:02-0500 Heart rate 84 /min Chani Bogner PA-C Work Phone: [facility] 10-23-2022 11:02-0500 Respiratory rate 20 /min Chani Bogner PA-C Work Phone: [facility] 10-23-2022 11:02-0500 SaO2% (BldA) [Mass fraction] 99 % Chani Bogner PA-C Work Phone: [facility] 10-23-2022 11:02-0500 Systolic blood pressure 124 mm[Hg] Chani Bogner PA-C Work Phone: [facility] 09-29-2022 11:08-0500 Body temperature 99 [degF] Divina Levi APRN.CONTROLS TECHNICIAN Work Phone: [facility] 09-29-2022 11:08-0500 Body weight 85.55 kg Divina Levi APRN.CONTROLS TECHNICIAN Work Phone: [facility] 09-29-2022 11:08-0500 Diastolic blood pressure 78 mm[Hg] Divina Levi APRN.CONTROLS TECHNICIAN Work Phone: [facility] 09-29-2022 11:08-0500 Heart rate 90 /min Divina Levi APRN.CONTROLS TECHNICIAN Work Phone: [facility] 09-29-2022 11:08-0500 Respiratory rate 16 /min Divina Levi APRN.CONTROLS TECHNICIAN Work Phone: [facility] 09-29-2022 11:08-0500 SaO2% (BldA) [Mass fraction] 99 % Divina Levi APRN.CONTROLS TECHNICIAN Work Phone: [facility] 09-29-2022 11:08-0500 Systolic blood pressure 138 mm[Hg] Divina Levi NEWSPAPER DELIVERY COUNSELOR.CONTROLS TECHNICIAN Work Phone: [facility] 07-03-2022 15:13-0400 Body weight 83.92 kg Georgebart Latham NEWSPAPER DELIVERY COUNSELOR.CONTROLS TECHNICIAN Work Phone: [facility] 07-03-2022 15:13-0400 Diastolic blood pressure 78 mm[Hg] George Zurawick NEWSPAPER DELIVERY COUNSELOR.CONTROLS TECHNICIAN Work Phone: [facility] 07-03-2022 15:13-0400 Heart rate 82 /min George Zurawick NEWSPAPER DELIVERY COUNSELOR.CONTROLS TECHNICIAN Work Phone: [facility] 07-03-2022 15:13-0400 Respiratory rate 16 /min George Zurawick NEWSPAPER DELIVERY COUNSELOR.CONTROLS TECHNICIAN Work Phone: [facility] 07-03-2022 15:13-0400 Systolic blood pressure 122 mm[Hg] George Zurawick NEWSPAPER DELIVERY COUNSELOR.CONTROLS TECHNICIAN Work Phone: [facility] 06-07-2022 10:51-0400 Body height 178 cm Tanisha Ellen NEWSPAPER DELIVERY COUNSELOR.CONTROLS TECHNICIAN Work Phone: [facility] 06-07-2022 10:51-0400 Body weight 85.19 kg Tanisha Ellen NEWSPAPER DELIVERY COUNSELOR.CONTROLS TECHNICIAN Work Phone: [facility] 06-07-2022 10:51-0400 Diastolic blood pressure 78 mm[Hg] Tanisha Ellen NEWSPAPER DELIVERY COUNSELOR.CONTROLS TECHNICIAN Work Phone: [facility] 06-07-2022 10:51-0400 Heart rate 107 /min Tanisha Ellen NEWSPAPER DELIVERY COUNSELOR.CONTROLS TECHNICIAN Work Phone: [facility] 06-07-2022 10:51-0400 SaO2% (BldA) [Mass fraction] 97 % Tanisha Ellen NEWSPAPER DELIVERY COUNSELOR.CONTROLS TECHNICIAN Work Phone: [facility] 06-07-2022 10:51-0400 Systolic blood pressure 118 mm[Hg] Tanisha Ellen NEWSPAPER DELIVERY COUNSELOR.CONTROLS TECHNICIAN Work Phone: [facility] NEGATED: Highlighted [id number] 08:19-0400 Body height 175.26 cm Yasmin Darin AT [facility] Work Phone: NEGATED: Highlighted [id number] 08:19-0400 Body height 175 cm Yasmin Darin AT [facility] Work Phone: NEGATED: Highlighted [id number] 08:19-0400 Body mass index (BMI) [Ratio] 28.9 kg/m2 Yasmin Darin AT [facility] Work Phone: NEGATED: Highlighted [id number] 08:19-0400 Body weight 88.45 kg Yasmin Darin AT [facility] Work Phone: NEGATED: Highlighted [id number] 08:19-0400 Body weight 89 kg Yasmin Darin AT [facility] Work Phone: NEGATED: Highlighted [id number] 12:17-0500 Body height 175.26 cm [facility] Work Phone: NEGATED: Highlighted [id number] 12:17-0500 Body height 175 cm [facility] Work Phone: NEGATED: Highlighted [id number] 12:17-0500 Body mass index (BMI) [Ratio] 28.9 kg/m2 [facility] Work Phone: NEGATED: Highlighted [id number] 12:17-0500 Body weight 88.45 kg [facility] Work Phone: NEGATED: Highlighted [id number] 12:17-0500 Body weight 89 kg [facility] Work Phone: Encounters Encounter Date Encounter Type Care Provider Facility Start: 11-01-2023 ambulatory FLOR MAST NEWSPAPER DELIVERY COUNSELOR-CONTROLS TECHNICIAN Fa cility:A Start: 09-14-2023 End: 09-19-2023 ambulatory FLOR MAST NEWSPAPER DELIVERY COUNSELOR-CONTROLS TECHNICIAN Facility:B Start: 06-28-2023 End: 06-28-2023 Emergency department patient visit ROBER LOZANO [facility] Start: 03-05-2023 Refill Juan Patel u NEWSPAPER DELIVERY COUNSELOR.CONTROLS TECHNICIAN Work Phone: Psychiatry Procedures Date Procedure Procedure Detail Performing Clinician Start: 12-18-2022 Follow-up visit Follow Up JUAN ROLON Start: 09-29-2022 Urnls dip stick/tabl et rgnt auto w/o microscopy Boaz Matute MD Work Phone: Start: 06-19-2022 Ct thorax w/o contra st material Tanisha Ellen NEWSPAPER DELIVERY COUNSELOR.CONTROLS TECHNICIAN Work Phone: Start: 06-14-2022 Us soft tissue head & neck real time imge docm Tanisha Ellen NEWSPAPER DELIVERY COUNSELOR.CONTROLS TECHNICIAN Work Phone: Start: 03-14-2022 End: 03-14-2022 BP [...] 01-27-2022 End: 01-27-2022 Documentation of current medications [facility] Plan of Treatment Date Care Activity Detail Author Start: 02-19-2027 Urine microalbumin profile DTAP,TDAP,TD (2 - Td or Tdap) [facility] Start: 01-26-2023 End: 03-28-2023 25-hydroxyvitamin D3 [Mass/volume] in Serum or Plasma VITAMIN D 25 HYDROXY Lab Routine Vitamin D deficiency Expected: 01/26/2023, Expires: 03/28/2023 [facility] Work Phone: Immunizations Immunization Date Immunization Notes Care Provider Fa cili 09-10-2019 influenza, injectabl e, quadrivalent, contains preservative Cici Briones RN [facility] Work Phone: 08-06-2017 influenza, injectabl e, quadrivalent, contains preservative Cici Briones RN [facility] 02-19-2017 tetanus toxoid, redu jonn diphtheria toxoid, and acellular pertussis vaccine, adsorbed Cici Briones RN [facility] Work Phone: 09-30-2015 influenza, injectabl e, quadrivalent, contains preservative Cici Briones RN [facility] 10-27-2014 influenza, seasonal, injectable Cici Briones RN [facility] Work Phone: 08-14-2011 influenza virus vaccine, unspecified formulation Cici Briones RN [facility] Payers Date Payer Category Payer Unknown MMO MMO TPA [id number] 2021-Present [address] [place] [address] [facility] [id number] 2021 Unknown [id number] 2021 Unknown [id number] 2017 Medicaid [employer] [employer] [id number] 2017-Present [phone] [address] [place] [address] Medicaid [id number] 2017 Medicaid [id number] 2017 Medicaid [id number] 1991 Unknown [id number] 1991 Unknown [id number] 1991 Unknown [id number] 1991 Unknown [id number] 1991 Unknown [id number] Social History Date Type Detail Facility Start: 01-27-2022 End: 03-14-2022 Assertion Unknown if ever smoked [facility] Work Phone: Start: 10-14-2018 End: 10-13-2022 Tobacco smoking status NHIS Smokes tobacco daily [facility] Work Phone: End: 10-19-2008 History of tobacco use Cigarette Smoker [facility] Work Phone: End: 10-19-2008 History of tobacco use Cigar Smoker [facility] Work Phone: Start: 10-14-2018 End: 10-13-2022 Tobacco use and exposure Smokeless tobacco non-user [facility] Work Phone: Start: 09-24-2020 End: 01-26-2023 Alcohol intake Current drinker of alcohol (finding) [facility] Start: 08-18-2020 End: 09-24-2020 History SDOH Alcohol Frequency 2 [facility] Start: 04-23-2020 End: 08-18-2020 History SDOH Alcohol Std Drinks 1 [facility] Start: 10-14-2018 History SDOH Alcohol Comment occasionally-does not drink on weekly basis [facility] Start: 04-23-2020 End: 08-18-2020 History SDOH Social Connections Phone 5 [facility] Start: 08-18-2020 End: 09-24-2020 History SDOH Social Connections Get Together 98 [facility] Start: 04-23-2020 End: 09-24-2020 History SDOH Social Connections Living 3 [facility] Start: 04-23-2020 Education 12 [facility] Start: 10-14-2018 End: 09-29-2022 Tobacco Comment 8 cigars per day-for about 1 month as of 10/14/18-previously smoked cigarettes on & off until 2007 [facility] Start: 1990 Sex Assigned At Not on file [facility] Start: 03-08-2022 End: 10-23-2022 Exposure to SARS-CoV-2 (event) Not sure [facility] Start: 09-19-2022 End: 09-29-2022 Exposure to SARS-CoV-2 (event) Yes [facility] Work Phone: Start: 10-13-2022 Cigarettes smoked current (pack per day) - Reported 0.5 [facility] Medical Equipment Procedure Code Equipment Code Equipment Origin al Text Equipment Identifier [facility]ates [facility] [id number] Start: 12-02-2013 Clinical Notes 08-31-2014 to 09-15-2023 Telephone Encounter - Ayanna Glover LPN - 03/05/2023 12:55 PM EDTTelephone Encounter - Sylvia Best RN - 02/09/2023 4:38 PM EDTJuan Rolon APRN.CONTROLS TECHNICIAN - 02/05/2023 10:40 AM EDT Note Date [...] Locations *1: This test was performed at: [facility], [address] [place] [address], [id number] , Formerly [facility] ([place]) 03-05-2023 Miscellaneous Notes Patient has been identified [...] Ayanna Glover LPN documented in this encounter [facility] 02-09-2023 Miscellaneous Notes Pt called and is [...] Tanisha Hughes APRN.EMERSON documented in this encounter [facility] 02-05-2023 Note HNO ID: [id number] Author: Juan Rolon APRN.EMERSON Service: ? Author Type: Nurse Practitioner Type: Progress Notes Filed: 02/05/2023 10:42 AM Note Text: Patient did not log in for her virtual visit with the provider today. She did not answer her phone when she was contacted prior to the appointment time. [facility] 02-05-2023 History of Presen t illness Narrative Patient did not log in for her virtual visit with the provider today. She did not answer her phone when she was contacted prior to the appointment time. documented in this encounter [facility] 01-26-2023 Note HNO ID: [id number] Author: Tanisha Hughes APRN.CNP Service: ? Author [...] right by her tailbone in ED at [facility] on 10/2022. Seems to come back intermittently, [...] improvement with omepraz (more content not included)... [facility] 01-26-2023 Instructions Tanisha Hughes APRN.CNP - 01/26/2023 2:11 PM EST Schedule with general surgery. Have your labs drawn. Start the omeprazole and take daily to see if this may be heartburn giving you this feeling in your throat. documented in this encounter [facility] 01-26-2023 History of Presen t illness Narrative Chief Complaint Patient presents with: Pain, Back: Lower back, Abcess drained in Er - October 2022 HPI Susana Mcclain is a 32 year old female who presents here today for Above Complaints.. Today: Had abscess drained that was right by her tailbone in ED at [facility] on 10/2022. Seems to come back intermittently, [...] - THYROID PEROXIDASE ANTIBODY BLOOD Tanisha Hughes APRN.CONTROLS TECHNICIAN documented in this encounter [facility] 12-18-2022 Note HNO ID: [id number] Author: Juan Rolon APRN.CNP Service: ? 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 Interval Progress: Slightly improved Risks and benefits [...] associations. Thought Cont (more content not included)... [facility] 12-18-2022 Instructions Juan Rolon APRN.CNP - 12/18/2022 9:47 AM EST Liana Meza, It was good to talk with you today. Below is a summary of the plan that we discussed during your appointment for reference. Of course, if you have any questions or concerns do not hesitate to reach out to me via a message or call. Best, Juan Rolon APRN.CONTROLS TECHNICIAN PLAN AND FOLLOW UP: YOU SHOULD SEEK [...] - Call the National Suicide Hotline at 9-021-DQFPADZ ( ) or 6-623-717-TALK (6793) - Text 6QLQR to 922126 Medication Update: Seroquel 200 mg - take 1 tablet at bedtime. Gabapentin 300 mg - take 1 capsule three times a day. Utilize xanax only as needed for overwhelming episodes of anxiety and panic. Next appointment: --Schedule in 6 to 8 weeks or sooner if needed -- You may call the department appointment line at [phone] to schedule your appointment. -- Please call my nurse Ayanna at [phone] or send me a message in TrackIF with any questions or concerns between appointments. 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 Interval Progress: Slightly improved Risks and benefits [...] which included preparing to see the patient, [id number] patient care, completing clinical documentation, and counseling and educating the patient/family/caregiver, ordering medications/labs. Juan Rolon APRN.CNP December 18, 2022 9:30 AM This note was partially generated using Seamless voice recognition system. Note was reviewed for accuracy. There may be minor misspellings or grammar miscues with Seamless voice recognition. documented in this encounter [facility] 11-14-2022 Note HNO ID: [id number] Author: Juan Rolon APRN.CNP Service: ? Author [...] and syntax Though (more content not included)... [facility] 11-14-2022 Instructions Juan Rolon APRN.CNP - 11/14/2022 8:58 AM EST Liana Meza, It was good to talk with you today. Below is a summary of the plan that we discussed during your appointment for reference. Of course, if you have any questions or concerns do not hesitate to reach out to me via a message or call. Juan Posada APRN.CONTROLS TECHNICIAN PLAN AND FOLLOW UP: YOU SHOULD SEEK [...] - Call the National Suicide Hotline at 7-924-IARXPHX ( ) or 9-585-136-TALK (1813) - Text 4HOPE to 957594 Medication Update: Stop Trazodone Seroquel 150 mg - take 1 tablet every night at bedtime. Gabapentin 100 mg - take 1 capsules three times daily. Utilize xanax only as needed for overwhelming episodes of anxiety. Next appointment: --Schedule in 4 weeks or sooner if needed -- You may call the department appointment line at [phone] to schedule your appointment. -- Please call my nurse Ayanna at [phone] or send me a message in TrackIF with any questions or concerns between appointments. documented in this encounter [facility] 11-14-2022 History of Presen t illness Narrative [...] which included preparing to see the patient, [id number] patient care, completing clinical documentation, and counseling and educating the patient/family/caregiver, ordering medications/labs. Juan Rolon APRN.CNP November 14, 2022 8:27 AM This note was partially generated using Seamless voice recognition system. Note was reviewed for accuracy. There may be minor misspellings or grammar miscues with [employer] voice recognition. documented in this encounter [facility] 10-23-2022 Miscellaneous Notes Patient returned call. She is at [facility] at this time. Jasmina Blue RN [...] to report that she was seen in [facility] today and is waiting on influenza/covid [...] Flor Padgett LPN documented in this encounter [facility] 10-23-2022 Influenza virus A and B RNA and SARS-CoV-2 (COVID-19) N gene panel KRUPA+probe (Resp) COVID 19 RESULT: SARS-CoV-2 (Agent of COVID-19) Not Detected by RT-PCR or equivalent method. wilbur [id number]_[employer] (PATRICIA)_EUA This test was developed and its performance characteristics determined by [facility]'s Rudi Falk [facility] [place]. This test has been authorized by FDA under an Emergency Use Authorization (EUA). This test has been validated in accordance with the FDA's Guidance Document Policy for Diagnostics Testing in Laboratories Certified to Perform High Complexity Testing under CLIA prior to Emergency use Authorization for Coronavirus Disease 2019 during the Public Health Emergency issued on January 17, 2020. Test performed by [facility], Rudi Dileep [facility] [place], [address], [place] [address]. INFLUENZA A PCR: Negative for Influenza A by RT-PCR INFLUENZA B PCR: Negative for Influenza B by RT-PCR [facility] documented as of this encounter (statuses as of 03/18/2022) [facility]10-13[facility] History of Past illness Narrative* Problem Noted [...] of this encounter (statuses as of 03/19/2022) [facility] History of Past illness Narrative* Problem Noted [...] of this encounter (statuses as of 05/31/2022) [facility] History of Past illness Narrative* Problem Noted [...] of this encounter (statuses as of 05/31/2022) [facility] History of Past illness Narrative* Problem Noted [...] of this encounter (statuses as of 06/07/2022) [facility] History of Past illness Narrative* Problem Noted [...] of this encounter (statuses as of 06/15/2022) [facility] History of Past illness Narrative* Problem Noted [...] of this encounter (statuses as of 06/20/2022) [facility] History of Past illness Narrative* Problem Noted [...] of this encounter (statuses as of 06/22/2022) [facility] History of Past illness Narrative* Problem Noted [...] of this encounter (statuses as of 06/22/2022) [facility] History of Past illness Narrative* Problem Noted [...] of this encounter (statuses as of 06/23/2022) [facility] History of Past illness Narrative* Problem Noted [...] of this encounter (statuses as of 07/03/2022) [facility] History of Past illness Narrative* Problem Noted [...] of this encounter (statuses as of 07/03/2022) [facility] History of Past illness Narrative* Problem Noted [...] of this encounter (statuses as of 09/29/2022) [facility] History of Past illness Narrative* Problem Noted [...] of this encounter (statuses as of 10/21/2022) [facility] History of Past illness Narrative* Problem Noted [...] of this encounter (statuses as of 10/23/2022) [facility] History of Past illness Narrative* Problem Noted [...] of this encounter (statuses as of 10/23/2022) [facility] History of Past illness Narrative* Problem Noted [...] of this encounter (statuses as of 11/19/2022) [facility] History of Past illness Narrative* Problem Noted [...] of this encounter (statuses as of 12/18/2022) [facility] History of Past illness Narrative* Problem Noted [...] of this encounter (statuses as of 01/26/2023) [facility] History of Past illness Narrative* Problem Noted [...] of this encounter (statuses as of 02/05/2023) [facility] History of Past illness Narrative* Problem Noted [...] of this encounter (statuses as of 02/09/2023) [facility] History of Past illness Narrative* Problem Noted [...] of this encounter (statuses as of 03/05/2023) [facility] noteThere may be information available, but it has not been provided by the sender.[facility] Work Phone: Evaluation note* Diagnosis Pilonidal abscess of elyssa cleft- Primary Pilonidal cyst with abscess [facility] Diagnosis Well adult exam- Primary Routine [...] and immunity disorders [facility] Diagnosis Dysphagia, unspecified type Sensation of foreign body in throat Other symptoms involving head and neck documented in this encounter [place] [facility] Diagnosis Lung nodules Other nonspecific abnormal finding of lung field [facility] Diagnosis Bipolar disorder, in partial remission, most recent episode depressed (HCC)- Primary Bipolar I disorder, most recent episode (or current) depressed, in partial or unspecified remission Chronic insomnia Insomnia, unspecified ALFREDO (generalized anxiety disorder) Generalized anxiety disorder [facility] Diagnosis Urinary frequency- Primary SOB (shortness of breath) Shortness of breath [facility] Diagnosis Moderate mixed bipolar I disorder (HCC)- Primary Bipolar I disorder, most recent episode (or current) mixed, moderate History of posttraumatic stress disorder (PTSD) documented [facility] Diagnosis Acute cough- Primary Nasal congestion Other diseases of nasal cavity and sinuses documented [facility] this encounter [facility] Diagnosis Moderate mixed bipolar I disorder (HCC)- Primary Bipolar I disorder, most recent episode (or current) mixed, moderate Generalized anxiety disorder History of attention deficit hyperactivity disorder (ADHD) documented in this encounter [facility] Diagnosis Generalized anxiety disorder- Primary Bipolar 1 disorder, depressed, moderate (HCC) Bipolar I disorder, most recent episode (or current) depressed, moderate History of attention deficit hyperactivity disorder (ADHD) History of posttraumatic stress disorder (PTSD) documented [facility] Diagnosis Cyst near tailbone- Primary Pilonidal [...] for thyroid disorder [facility] Diagnosis NO SHOW- Primary [facility] Instruction Description Start Date CompletedPatient advised to follow-up with Primary Care Physician for BMI management. [facility] Work Phone: Instructions* Instruction Description Start Date CompletedPatient advised to follow-up with Primary Care Physician for BMI management. [facility] Work Phone: Reason for referral (narrative)* Diagnostic Procedure Only (Routine) - Closed Specialty Diagnoses / Procedures Referred By Portia rivera Referred To Contact US IMAGING Diagnoses Dysphagia, unspecified type Sensation of foreign body in throat Procedures US THYROID/PARATHYROID US SOFT TISSUE HEAD & NECK REAL TIME IMGE Tanisha Anderson APRN.CNP [address] [place] [address] Us Imaging Referral ID Status Reason Start Date Expiration Date V isits Requested Visits Authorized [id number] Closed Auto-Generate d Referral 06/07/2022 07/07/2023 1 1 [facility] Summary Purpose Family History No Family History Records FoundNo Family History Records FoundThere may be information available, but it has not been provided by the sender.There may be information available, but it has not been provided by the sender.No Family History Records FoundNo Family History Records FoundNo Family HistoryRecords Found Advance Directives No Advanced Directives Records FoundDocuments on File Type Date Recorded Patient Pot Room Supervisor Expl anation Advance Directive(s) 10/15/2018 11:01 AM Documents on File Type Date Recorded Patient Pot Room Supervisor Expl anation Advance Directive(s) 10/15/2018 11:01 AM [...] COMPUTED TOMOGRAPHY THORAX W/O CNTRST Tanisha Hughes APRN.CONTROLS TECHNICIAN [address] [place] [address] Ct Imaging Referral ID Status Reason Start Date Expiration Date Visits Requested Visits Authorized [id number] Authorized Auto-Generat ed Referral 06/07/2022 11/18/2022 1 1 Specialty Diagnoses / Procedures Referred By Portia t Referred To Contact US IMAGING Diagnoses Dysphagia, unspecified type Sensation of foreign body in throat Procedures US THYROID/PARATHYROID US SOFT TISSUE HEAD & NECK REAL TIME IMGE DOCM Tanisha Hughes, LUPE.CONTROLS TECHNICIAN [address] [place] [address] Us Imaging Referral ID Status Reason Start Date Expiration Date Visits Requested Visits Authorized [id number] Authorized Auto-Generat ed Referral 06/07/2022 07/07/2023 1 1 Referral ID Status Reason Start Date Expiration Date V isits Requested Visits Authorized [id number] Closed Auto-Generate d Referral 06/07/2022 11/18/2022 1 1 Specialty Diagnoses / Procedures Referred By Portia t Referred To Contact General Surgery Diagnoses Cyst near tailbone Well adult exam Myalgia Arthralgia, unspecified joint Procedures CONSULT TO GENERAL SURGERY OFFICE/OUTPATIENT [facility] 60-74 MINUTES Tanisha Hughes, NEWSPAPER DELIVERY COUNSELOR.CONTROLS TECHNICIAN [address] [place] [address] Referral ID Status Reason Start Date Expiration Date Visits Requested Visits Authorized [id number] Authorized PCP Requested Referral 01/26/2023 01/26/2024 1 1 Additional Source Comments INFORMATION SOURCE (unrecogn ized section and content) DATE CREATED AUTHOR AUTHOR'S ORGANIZ ATION 10/13/2020 [facility] DATE CREATED AUTHOR AUTHOR'S ORGANIZ ATION 05/31/2023 [facility] DATE CREATED AUTHOR AUTHOR'S ORGANIZ ATION 06/29/2023 [facility] DATE CREATED AUTHOR AUTHOR'S ORGANIZ ATION 11/04/2023 [facility] ([place]) Reason for Visit [...] NECK REAL TIME IMGE DOCM Tanisha Hughes, NEWSPAPER DELIVERY COUNSELOR.CONTROLS TECHNICIAN [address] [place] [address] Us Imaging Referral ID Status Reason Start Date Expiration Date V isits Requested Visits Authorized [id number] Closed Auto-Generate d Referral 06/07/2022 07/07/2023 [address] Specialty Diagnoses / Procedures Referred By Contac t Referred To Contact CT IMAGING Diagnoses Lung nodules Procedures CT CHEST WO IVCON DIAGNOSTIC COMPUTED TOMOGRAPHY THORAX W/O CNTRST Tanisha Hughes, NEWSPAPER DELIVERY COUNSELOR.CONTROLS TECHNICIAN [address] [place] [address] Ct Imaging Referral ID Status Reason Start Date Expiration Date V isits Requested Visits Authorized [id number] Closed Auto-Generate d Referral 06/07/2022 11/18/2022 1 1 Reason Comments Opened In Error Reason Comments Patient Update Reason Comments Anxiety Depression Specialty Diagnoses / Procedures Referred By Contac t Referred To Contact Family Practice / FAMILY MEDICINE Diagnoses At risk for increased anxiety increased anxiety Procedures OFFICE/OUTPATIENT ESTABLISHED MOD MDM 30-39 MIN 4C EST Rober Mojica, DO [address] [place] [address] George Latham APRN.CONTROLS TECHNICIAN [address] [place] [address] Referral ID Status Reason Start Date Expiration Date V isits Requested Visits Authorized [id number] Authorized 07/03/2022 10/01/2022 10 10 Reason Comments [...] or prosecute any alcohol or drug abuse patient.[facility] the event this information is protected by the Federal Confidentiality of Alcohol and Drug Abuse Patient Records regulations: The Federal rules restrict any use of the information to criminally investigate or prosecute any alcohol or drug abuse patient.[facility] the event this information is protected by the Federal Confidentiality of Alcohol and Drug Abuse Patient Records regulations: The Federal rules restrict any use of the information to criminally investigate or prosecute any alcohol or drug abuse patient.[facility] the event this information is protected by the Federal Confidentiality of Alcohol and Drug Abuse Patient Records regulations: The Federal rules restrict any use of the information to criminally investigate or prosecute any alcohol or drug abuse patient.[facility] the event this information is protected by the Federal Confidentiality of Alcohol and Drug Abuse Patient Records regulations: The Federal rules restrict any use of the information to criminally investigate or prosecute any alcohol or drug abuse patient.[facility] the event this information is protected by the Federal Confidentiality of Alcohol and Drug Abuse Patient Records regulations: The Federal rules restrict any use of the information to criminally investigate or prosecute any alcohol or drug abuse patient.[facility] the event this information is protected by the Federal Confidentiality of Alcohol and Drug Abuse Patient Records regulations: The Federal rules restrict any use of the information to criminally investigate or prosecute any alcohol or drug abuse patient.[facility] the event this information is protected by the Federal Confidentiality of Alcohol and Drug Abuse Patient Records regulations: The Federal rules restrict any use of the information to criminally investigate or prosecute any alcohol or drug abuse patient.[facility] the event this information is protected by the Federal Confidentiality of Alcohol and Drug Abuse Patient Records regulations: The Federal rules restrict any use of the information to criminally investigate or prosecute any alcohol or drug abuse patient.[facility] the event this information is protected by the Federal Confidentiality of Alcohol and Drug Abuse Patient Records regulations: The Federal rules restrict any use of the information to criminally investigate or prosecute any alcohol or drug abuse patient.[facility] the event this information is protected by the Federal Confidentiality of Alcohol and Drug Abuse Patient Records regulations: The Federal rules restrict any use of the information to criminally investigate or prosecute any alcohol or drug abuse patient.[facility] the event this information is protected by the Federal Confidentiality of Alcohol and Drug Abuse Patient Records regulations: The Federal rules restrict any use of the information to criminally investigate or prosecute any alcohol or drug abuse patient.[facility] the event this information is protected by the Federal Confidentiality of Alcohol and Drug Abuse Patient Records regulations: The Federal rules restrict any use of the information to criminally investigate or prosecute any alcohol or drug abuse patient.[facility] the event this information is protected by the Federal Confidentiality of Alcohol and Drug Abuse Patient Records regulations: The Federal rules restrict any use of the information to criminally investigate or prosecute any alcohol or drug abuse patient.[facility] the event this information is protected by the Federal Confidentiality of Alcohol and Drug Abuse Patient Records regulations: The Federal rules restrict any use of the information to criminally investigate or prosecute any alcohol or drug abuse patient.[facility] the event this information is protected by the Federal Confidentiality of Alcohol and Drug Abuse Patient Records regulations: The Federal rules restrict any use of the information to criminally investigate or prosecute any alcohol or drug abuse patient.[facility] the event this information is protected by the Federal Confidentiality of Alcohol and Drug Abuse Patient Records regulations: The Federal rules restrict any use of the information to criminally investigate or prosecute any alcohol or drug abuse patient.[facility] the event this information is protected by the Federal Confidentiality of Alcohol and Drug Abuse Patient Records regulations: The Federal rules restrict any use of the information to criminally investigate or prosecute any alcohol or drug abuse patient.[facility] the event this information is protected by the Federal Confidentiality of Alcohol and Drug Abuse Patient Records regulations: The Federal rules restrict any use of the information to criminally investigate or prosecute any alcohol or drug abuse patient.[facility] the event this information is protected by the Federal Confidentiality of Alcohol and Drug Abuse Patient Records regulations: The Federal rules restrict any use of the information to criminally investigate or prosecute any alcohol or drug abuse patient.[facility] the event this information is protected by the Federal Confidentiality of Alcohol and Drug Abuse Patient Records regulations: The Federal rules restrict any use of the information to criminally investigate or prosecute any alcohol or drug abuse patient.[facility] the event this information is protected by the Federal Confidentiality of Alcohol and Drug Abuse Patient Records regulations: The Federal rules restrict any use of the information to criminally investigate or prosecute any alcohol or drug abuse patient.[facility] the event this information is protected by the Federal Confidentiality of Alcohol and Drug Abuse Patient Records regulations: The Federal rules restrict any use of the information to criminally investigate or prosecute any alcohol or drug abuse patient.[facility] Care Teams (unrecognized sec tion and content) Social Media Community Manager Relationship Specialty Start Date End Date Rober Mojica, DO [address] [place] [address] PCP - General Family Practice 10/28/14 Social Media Community Manager Relationship Specialty Start Date End Date Rober Mojica DO [address] [place] [address] PCP - General Family Practice 10/28/14 Social Media Community Manager Relationship Specialty Start Date End Date Rober Mojica DO [address] [place] [address] PCP - General Family Practice 10/28/14 Social Media Community Manager Relationship Specialty Start Date End Date Rober Mojica DO [address] [place] [address] PCP - General Family Practice 10/28/14 Social Media Community Manager Relationship Specialty Start Date End Date Rober Mojica DO [address] [place] [address] PCP - General Family Practice 10/28/14 Social Media Community Manager Relationship Specialty Start Date End Date Rober Mojica, DO [address] [place] [address] PCP - General Family Practice 10/28/14 Social Media Community Manager Relationship Specialty Start Date End Date Rober Mojica, DO [address] [place] [address] PCP - General Family Practice 10/28/14 Social Media Community Manager Relationship Specialty Start Date End Date Rober Mojica, DO [address] [place] [address] PCP - General Family Practice 10/28/14 Social Media Community Manager Relationship Specialty Start Date End Date Rober Mojica, DO [address] [place] [address] PCP - General Family Practice 10/28/14 Social Media Community Manager Relationship Specialty Start Date End Date Rober Mojica, DO [address] [place] [address] PCP - General Family Practice 10/28/14 Social Media Community Manager Relationship Specialty Start Date End Date Rober Mojica, DO [address] [place] [address] PCP - General Family Medicine 10/28/14 Social Media Community Manager Relationship Specialty Start Date End Date Rober Mojica, DO [address] [place] [address] PCP - General Family Medicine 10/28/14 Social Media Community Manager Relationship Specialty Start Date End Date Rober Mojica, DO [address] [place] [address] PCP - General Family Medicine 10/28/14 Social Media Community Manager Relationship Specialty Start Date End Date Rober Mojica, DO [address] [place] [address] PCP - General Family Medicine 10/28/14 Social Media Community Manager Relationship Specialty Start Date End Date Rober Mojica, DO [address] [facility] [place] [address] PCP - General Family Medicine 10/28/14 Social Media Community Manager Relationship Specialty Start Date End Date Rober Mojica, DO [address] [place] [address] PCP - General Family Medicine 10/28/14 Social Media Community Manager Relationship Specialty Start Date End Date Rober Mojica, DO [address] [place] [address] PCP - [facility] 10/28/14 Social Media Community Manager Relationship Specialty Start Date End Date Rober Mojica, DO [address] [facility] [place] [address] PCP - General [facility] 10/28/14 Social Media Community Manager Relationship Specialty Start Date End Date Rober Mojica, DO [address] [facility] [place] [address] PCP - General Family [facility] 10/28/14 FOR RECORDS PERTAINING TO PATIENTS WHO [...] BE BASED ON THE PRIMARY CLINICAL RECORDS. [facility] [employer] provides no warranty or guarantee of the accuracy or completeness of information in this document.
[2023-12-31] MEDS: Lactated Ringers 1,000 ML 15 ML IV (11:18)
[2023-12-31 11:41] LABS: International Normalized Ratio 1.2; Partial Thromboplast Time 28.7 Seconds (24.1-36.2); Prothrombin Time (Protime)PT. 14.9 SECONDS (11.7-14.9)
[2023-12-31] MEDS: Clindamycin 600 MG/50 ML BAG 100 MG IV (12:15)
[2023-12-31] MEDS: Epinephrine (1 mg/ml) 1 MG/ML VIAL (13:22)
--- NOTE | 2023-12-31 13:50 | OP.PCM_ITS ---
Report of Operation Date of Procedure: 12/31/23 Pre-Operative Diagnosis: Right knee ACL tear Post-Operative Diagnosis: Same Surgery/Procedure Performed:: ACL reconstruction right knee Surgeon: Qamar Burrell director of exhibit development: Everardo Solo Type of Anesthesia: General Anesthesiologist: Humberto Bell Admwilla VTE Documentation VTE Present on Admission: No VTE Mechan Device Prophylaxis: SCD's and Knee High REJI Hose VTE Pharm Prophylaxis ordered?: Yes
[2023-12-31] MEDS: Bupiv/Epi 0.5% Mpf 30 ML Vial INFILT (14:01)
[2023-12-31] MEDS: Oxycodone/Apap 5/325 Tablet PO (15:48)
== END 2023-12-31 16:21 | disposition home or self-care (01) ==
LOC: SDC 10:49 → AC 10:51
PROVIDERS: Anesthesiology; PCP Nurse Practitioner Adult Health; Referring Provider Orthopaedic Surgery; Visit Provider Orthopaedic Surgery
PROC: (CPT 29888; principal; 2023-12-31 12:25)
DX: S83.511A Sprain of anterior cruciate ligament of right knee, initial encounter (principal); F17.210 Nicotine dependence, cigarettes, uncomplicated; E66.3 Overweight; Z68.28 Body mass index [BMI] 28.0-28.9, adult; X58.XXXA Exposure to other specified factors, initial encounter
CPT/HCPCS: 29888; 64447; 01400; 36415; 85610; 85730; 93005; J7120; J2405

== ENCOUNTER 2024-01-10 11:51 | Emergency (ER) | payer OTHER, SELFPAY ==
[2024-01-10 11:39] VITALS: BP 125/99; PULSE 72; RESP 16; TEMP 36.6; O2SAT 99; BMI 28.8
--- NOTE | 2024-01-10 11:47 | ED.RN ---
pt states she was given a compression stocking to wear post op; pt states she has only started to wear today. Pt is able to stand without any assistance and bear full weight. Pt states she has been compliant otherwise
--- NOTE | 2024-01-10 12:21 | VDLE_ITS ---
Reason For Study: pain RIGHT GSV is normal. CFV is compressible, spontaneous, phasic, competent and demonstrates normal augmentation. FV is compressible, spontaneous, phasic, competent and demonstrates normal augmentation. POP V is compressible, spontaneous, phasic, competent and demonstrates normal augmentation. T/P Trunk is compressible. PTV is compressible. RT PerV is compressible. Procedure This is a venous duplex using B-mode, color flow and spectral Doppler. Exam performed portable in ED. The exam was abbreviated due to the COVID 19 protocol. The exam was diagnostic. A preliminary report was called and/or faxed to Dr. Liu. VL/Venous Duplex US, Unilateral Interpretation Summary Deep veins of the right lower extremity are patent and compressible segmentally . There is no evidence of right lower extremity deep vein thrombosis. Valvular competence shanon ears intact within the proximal deep venous system on the right . The right great saphenous vein a ppears patent and compressible segmentally. Ordering Physician: Rohit Liu Performed By: Edmund Gonzalez RVT
--- OUTSIDE RECORDS SUMMARY | 2024-01-10 12:45 | XMS RPT_ITS | CCD ---
Author Name Unknown Address [address] [place] [address] Organization [facility] Care Team Providers Care Manager Garden Name Role Phone Miguel TAVAREZ, Andry Bass Unavailable Nabil Wang PA-C Unavailable [phone] Rober Mojica DO Primary Care Provider Rober [...] Referring Unavailable ROBER MOJICA Primary Care Unavailable WILSON HUGHESEKAH Referring Unavailable ROBER MOJICA [...] Attending Unavailable PROVIDER, UNKNOWN Consulting Unavailable MAST [employer]WING AND ASSEMBLY SUPERVISOR-[employer], FLOR Attending Unavailabl e MAST [employer]ING [employer] ASSEMBLY SUPERVISOR-[employer], FLOR Primary Care Unavailabl e MAST [employer]WING AND ASSEMBLY SUPERVISOR-[employer], FLOR Primary Care Unavailabl e MAST [employer]WING AND ASSEMBLY SUPERVISOR-[employer], FLOR Attending Unavailabl e Allergies Allergy Classification Reported Allergen(s) Allergy Type Date of Onset Reaction(s) Facility (2 sources) Azithromycin Drug Allergy 12-10-2020 rash [facility] Work Phone: (2 sources) RED DYE 40 drug allergy 12-10-2020 [facility] Work Phone: (20 sources) Azithromycin; Translations: [AZITHROMYCIN] Drug Allergy 11-17-2009 [facility] (1 source) Amoxicillin Drug Allergy [facility] (1 source) Azithromycin Drug Allergy [facility] Medications Current Medications Medication Drug [...] 13:47-0500 Body temperature 99.5 [degF] Tanisha Diazman SAWING AND ASSEMBLY SUPERVISOR.[employer] Work Phone: [facility] 01-26-2023 13:47-0500 Body weight 85.73 kg Tanisha Diazman [employer]WING AND ASSEMBLY SUPERVISOR.[employer] Work Phone: [facility] 01-26-2023 13:47-0500 Diastolic blood pressure 84 mm[Hg] Tanisha Ellen [employer]WING AND ASSEMBLY SUPERVISOR.[employer] Work Phone: [facility] 01-26-2023 13:47-0500 Heart rate 83 /min Tanisha Diazman [employer]WING AND ASSEMBLY SUPERVISOR.[employer] Work Phone: [facility] 01-26-2023 13:47-0500 Respiratory rate 16 /min Tanisha Diazman [employer]WING AND ASSEMBLY SUPERVISOR.[employer] Work Phone: [facility] 01-26-2023 13:47-0500 SaO2% (BldA) [Mass fraction] 98 % Tanisha Ellen [employer]ING AND ASSEMBLY SUPERVISOR.[employer] Work Phone: [facility] 01-26-2023 13:47-0500 Systolic blood pressure 122 mm[Hg] Tanisha Ellen [employer]WING AND ASSEMBLY SUPERVISOR.[employer] Work Phone: [facility] 10-23-2022 11:02-0500 Body temperature 99.61 [degF] Chani Vaughn PA-C Work Phone: [facility] 10-23-2022 11:02-0500 Body weight 84.91 kg Chani Bogner PA-C Work Phone: [facility] 10-23-2022 11:02-0500 Diastolic blood pressure 86 mm[Hg] Chani Bogner PA-C Work Phone: [facility] 10-23-2022 11:02-0500 Heart rate 84 /min Chani Bogner PA-C Work Phone: [facility] 10-23-2022 11:02-0500 Respiratory rate 20 /min Chani Bogner PA-C Work Phone: [facility] 10-23-2022 11:02-0500 SaO2% (BldA) [Mass fraction] 99 % Chani Bogner PA-C Work Phone: [facility] 10-23-2022 11:02-0500 Systolic blood pressure 124 mm[Hg] Chani Bogner PA-C Work Phone: [facility] 09-29-2022 11:08-0500 Body temperature 99 [degF] Divina Levi APRN.[employer] Work Phone: [facility] 09-29-2022 11:08-0500 Body weight 85.55 kg Divina Levi APRN.[employer] Work Phone: [facility] 09-29-2022 11:08-0500 Diastolic blood pressure 78 mm[Hg] Divina Levi APRN.[employer] Work Phone: [facility] 09-29-2022 11:08-0500 Heart rate 90 /min Divina Levi APRN.[employer] Work Phone: [facility] 09-29-2022 11:08-0500 Respiratory rate 16 /min Divina Levi APRN.[employer] Work Phone: [facility] 09-29-2022 11:08-0500 SaO2% (BldA) [Mass fraction] 99 % Divina Levi APRN.[employer] Work Phone: [facility] 09-29-2022 11:08-0500 Systolic blood pressure 138 mm[Hg] Divina Levi SAWING AND ASSEMBLY SUPERVISOR.[employer] Work Phone: [facility] 07-03-2022 15:13-0400 Body weight 83.92 kg Georgebart Latham SAWING AND ASSEMBLY SUPERVISOR.[employer] Work Phone: [facility] 07-03-2022 15:13-0400 Diastolic blood pressure 78 mm[Hg] George Zurawick SAWING AND ASSEMBLY SUPERVISOR.[employer] Work Phone: [facility] 07-03-2022 15:13-0400 Heart rate 82 /min George Zurawick SAWING AND ASSEMBLY SUPERVISOR.[employer] Work Phone: [facility] 07-03-2022 15:13-0400 Respiratory rate 16 /min George Zurawick [employer]WING AND ASSEMBLY SUPERVISOR.[employer] Work Phone: [facility] 07-03-2022 15:13-0400 Systolic blood pressure 122 mm[Hg] George Zurawick SAWING AND ASSEMBLY SUPERVISOR.[employer] Work Phone: [facility] 06-07-2022 10:51-0400 Body height 178 cm Tanisha Ellen SAWING AND ASSEMBLY SUPERVISOR.[employer] Work Phone: [facility] 06-07-2022 10:51-0400 Body weight 85.19 kg Tanisha Ellen SAWING AND ASSEMBLY SUPERVISOR.[employer] Work Phone: [facility] 06-07-2022 10:51-0400 Diastolic blood pressure 78 mm[Hg] Tanisha Ellen SAWING AND ASSEMBLY SUPERVISOR.[employer] Work Phone: [facility] 06-07-2022 10:51-0400 Heart rate 107 /min Tanisha Ellen SAWING AND ASSEMBLY SUPERVISOR.[employer] Work Phone: [facility] 06-07-2022 10:51-0400 SaO2% (BldA) [Mass fraction] 97 % Tanisha Ellen [employer]WING AND ASSEMBLY SUPERVISOR.[employer] Work Phone: [facility] 06-07-2022 10:51-0400 Systolic blood pressure 118 mm[Hg] Tanisha Ellen SAWING AND ASSEMBLY SUPERVISOR.[employer] Work Phone: [facility] NEGATED: Highlighted [id number] 08:19-0400 Body height 175.26 cm Yasmin Darin AT [facility] Work Phone: NEGATED: Highlighted [id number] 08:19-0400 Body height 175 cm Yasmin Darin AT [facility] Work Phone: NEGATED: Highlighted [id number] 08:19-0400 Body mass index (BMI) [Ratio] 28.9 kg/m2 Yasmin Darin AT [facility] Work Phone: NEGATED: Highlighted [id number] 08:19-0400 Body weight 88.45 kg Yasmin Darin AT [facility] Work Phone: NEGATED: Highlighted [id number] 08:19-0400 Body weight 89 kg Yasmin Darin AT [facility] Work Phone: NEGATED: Highlighted [id number] 12:17-0500 Body height 175.26 cm [facility] Work Phone: NEGATED: Highlighted [id number] 12:17-0500 Body height 175 cm [facility] Work Phone: NEGATED: Highlighted [id number] 12:17-0500 Body mass index (BMI) [Ratio] 28.9 kg/m2 [facility] Work Phone: NEGATED: Highlighted [id number] 12:17-0500 Body weight 88.45 kg [facility] Work Phone: NEGATED: Highlighted [id number] 12:17-0500 Body weight 89 kg [facility] Work Phone: Encounters Encounter Date Encounter Type Care Provider Facility Start: 11-01-2023 ambulatory FLOR MAST [employer]ING AND ASSEMBLY SUPERVISOR-[employer] Fa cility:A Start: 09-14-2023 End: 09-19-2023 ambulatory FLOR MAST [employer]ING AND ASSEMBLY SUPERVISOR-[employer] Facility:B Start: 06-28-2023 End: 06-28-2023 Emergency department patient visit ROBER LOZANO [facility] Start: 03-05-2023 Refill Juan Patel u SAWING AND ASSEMBLY SUPERVISOR.[employer] Work Phone: Psychiatry Procedures Date Procedure Procedure Detail Performing Clinician Start: 12-18-2022 Follow-up visit Follow Up JUAN ROLON Start: 09-29-2022 Urnls dip stick/tabl et rgnt auto w/o microscopy Boaz Matute MD Work Phone: Start: 06-19-2022 Ct thorax w/o contra st material Tanisha Ellen [employer]WING AND ASSEMBLY SUPERVISOR.[employer] Work Phone: Start: 06-14-2022 Us soft tissue head & neck real time imge docm Tanisha Ellen [employer]WING AND ASSEMBLY SUPERVISOR.[employer] Work Phone: Start: 03-14-2022 End: 03-14-2022 BP [...] 01-27-2022 End: 01-27-2022 Documentation of current medications [facility] Plan of Treatment Date Care Activity Detail Author Start: 02-19-2027 Urine microalbumin profile DTAP,TDAP,TD (2 - Td or Tdap) [facility] Start: 01-26-2023 End: 03-28-2023 25-hydroxyvitamin D3 [Mass/volume] in Serum or Plasma VITAMIN D 25 HYDROXY Lab Routine Vitamin D deficiency Expected: 01/26/2023, Expires: 03/28/2023 [facility] Work Phone: Immunizations Immunization Date Immunization Notes Care Provider Fa cili 09-10-2019 influenza, injectabl e, quadrivalent, contains preservative Cici Briones RN [facility] Work Phone: 08-06-2017 influenza, injectabl e, quadrivalent, contains preservative Cici Briones RN [facility] 02-19-2017 tetanus toxoid, redu jonn diphtheria toxoid, and acellular pertussis vaccine, adsorbed Cici Briones RN [facility] Work Phone: 09-30-2015 influenza, injectabl e, quadrivalent, contains preservative Cici Briones RN [facility] 10-27-2014 influenza, seasonal, injectable Cici Brioens RN [facility] Work Phone: 08-14-2011 influenza virus vaccine, unspecified formulation Cici Briones RN [facility] Payers Date Payer Category Payer Unknown MMO MMO TPA [id number] 2021-Present [address] [place] [address] [facility] [id number] 2021 Unknown [id number] 2021 Unknown [id number] 2017 Medicaid [employer] [id number] 2017-Present [phone] [address] [place] [address] Medicaid [id number] 2017 Medicaid [id number] 2017 Medicaid [id number] 1991 Unknown [id number] 1991 Unknown [id number] 1991 Unknown [id number] 1991 Unknown [id number] 1991 Unknown [id number] Social History Date Type Detail Facility Start: 01-27-2022 End: 03-14-2022 Assertion Unknown if ever smoked [facility] Work Phone: Start: 10-14-2018 End: 10-13-2022 Tobacco smoking status NHIS Smokes tobacco daily [facility] Work Phone: End: 10-19-2008 History of tobacco use Cigarette Smoker [facility] Work Phone: End: 10-19-2008 History of tobacco use Cigar Smoker [facility] Work Phone: Start: 10-14-2018 End: 10-13-2022 Tobacco use and exposure Smokeless tobacco non-user [facility] Work Phone: Start: 09-24-2020 End: 01-26-2023 Alcohol intake Current drinker of alcohol (finding) [facility] Start: 08-18-2020 End: 09-24-2020 History SDOH Alcohol Frequency 2 [facility] Start: 04-23-2020 End: 08-18-2020 History SDOH Alcohol Std Drinks 1 [facility] Start: 10-14-2018 History SDOH Alcohol Comment occasionally-does not drink on weekly basis [facility] Start: 04-23-2020 End: 08-18-2020 History SDOH Social Connections Phone 5 [facility] Start: 08-18-2020 End: 09-24-2020 History SDOH Social Connections Get Together 98 [facility] Start: 04-23-2020 End: 09-24-2020 History SDOH Social Connections Living 3 [facility] Start: 04-23-2020 Education 12 [facility] Start: 10-14-2018 End: 09-29-2022 Tobacco Comment 8 cigars per day-for about 1 month as of 10/14/18-previously smoked cigarettes on & off until 2007 [facility] Start: 1990 Sex Assigned At Not on file [facility] Start: 03-08-2022 End: 10-23-2022 Exposure to SARS-CoV-2 (event) Not sure [facility] Start: 09-19-2022 End: 09-29-2022 Exposure to SARS-CoV-2 (event) Yes [facility] Work Phone: Start: 10-13-2022 Cigarettes smoked current (pack per day) - Reported 0.5 [facility] Medical Equipment Procedure Code Equipment Code Equipment Origin al Text Equipment Identifier Dates [facility] [id number] Start: 12-02-2013 Clinical Notes 08-31-2014 to 09-15-2023 Telephone Encounter - Ayanna Glover LPN - 03/05/2023 12:55 PM EDTTelephone Encounter - Sylvia Best RN - 02/09/2023 4:38 PM EDTJuan Rolon APRN.[employer] - 02/05/2023 10:40 AM EDT Note Date [...] Locations *1: This test was performed at: [facility], [address] [place] [address], [id number] , [facility] ([place]) 03-05-2023 Miscellaneous Notes Patient has been identified [...] Ayanna Glover LPN documented in this encounter [facility] 02-09-2023 Miscellaneous Notes Pt called and is [...] Tanisha Hughes APRN.EMERSON documented in this encounter [facility] 02-05-2023 Note HNO ID: [id number] Author: Juan Rolon APRN.EMERSON Service: ? Author Type: Nurse Practitioner Type: Progress Notes Filed: 02/05/2023 10:42 AM Note Text: Patient did not log in for her virtual visit with the provider today. She did not answer her phone when she was contacted prior to the appointment time. [facility] 02-05-2023 History of Presen t illness Narrative Patient did not log in for her virtual visit with the provider today. She did not answer her phone when she was contacted prior to the appointment time. documented in this encounter [facility] 01-26-2023 Note HNO ID: [id number] Author: Tanisha Hughes APRN.CNP Service: ? Author [...] right by her tailbone in ED at [facility] on 10/2022. Seems to come back [...] omepraz (more content not included)... [facility] 01-26-2023 Instructions Tanisha Hughes APRN.CNP - 01/26/2023 2:11 PM EST Schedule with general surgery. Have your labs drawn. Start the omeprazole and take daily to see if this may be heartburn giving you this feeling in your throat. documented in this encounter [facility] 01-26-2023 History of Presen t illness Narrative Chief Complaint Patient presents with: Pain, Back: Lower back, Abcess drained in Er - October 2022 HPI Susana Mcclain is a 32 year old female who presents here today for Above Complaints.. Today: Had abscess drained that was right by her tailbone in ED at [facility] on 10/2022. Seems to come back [...] - THYROID PEROXIDASE ANTIBODY BLOOD Tanisha Hughes APRN.[employer] documented in this encounter [facility] 12-18-2022 Note HNO ID: [id number] Author: Juan Rolon APRN.CNP Service: ? 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 Interval Progress: Slightly improved Risks and benefits [...] Cont (more content not included)... [facility] 12-18-2022 Instructions Juan Rolon APRN.CNP - 12/18/2022 9:47 AM EST Liana Meza, It was good to talk with you today. Below is a summary of the plan that we discussed during your appointment for reference. Of course, if you have any questions or concerns do not hesitate to reach out to me via a message or call. Best, Juan Rolon APRN.[employer] PLAN AND FOLLOW UP: YOU SHOULD SEEK [...] - Call the National Suicide Hotline at 7-728-SNWOPST ( ) or 1-003-237-TALK (0996) - Text 9YDOT to 128418 Medication Update: Seroquel 200 mg - take 1 tablet at bedtime. Gabapentin 300 mg - take 1 capsule three times a day. Utilize xanax only as needed for overwhelming episodes of anxiety and panic. Next appointment: --Schedule in 6 to 8 weeks or sooner if needed -- You may call the department appointment line at [phone] to schedule your appointment. -- Please call my nurse Ayanna at [phone] or send me a message in [employer] with any questions or concerns between appointments. 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 Interval Progress: Slightly improved Risks and benefits [...] which included preparing to see the patient, [id number] patient care, completing clinical documentation, and counseling and educating the patient/family/caregiver, ordering medications/labs. Juan Rolon APRN.CNP December 18, 2022 9:30 AM This note was partially generated using ACell voice recognition system. Note was reviewed for accuracy. There may be minor misspellings or grammar miscues with [employer] voice recognition. documented in this encounter [facility] 11-14-2022 Note HNO ID: [id number] Author: Juan Rolon APRN.CNP Service: ? Author [...] Though (more content not included)... [facility] 11-14-2022 Instructions Juan Rolon APRN.CNP - 11/14/2022 8:58 AM EST Liana Meza, It was good to talk with you today. Below is a summary of the plan that we discussed during your appointment for reference. Of course, if you have any questions or concerns do not hesitate to reach out to me via a message or call. Juan Posada APRN.[employer] PLAN AND FOLLOW UP: YOU SHOULD SEEK [...] - Call the National Suicide Hotline at 1-814-SWEUYGS ( ) or 6-324-200-TALK (7346) - Text 4HOPE to 069016 Medication Update: Stop Trazodone Seroquel 150 mg - take 1 tablet every night at bedtime. Gabapentin 100 mg - take 1 capsules three times daily. Utilize xanax only as needed for overwhelming episodes of anxiety. Next appointment: --Schedule in 4 weeks or sooner if needed -- You may call the department appointment line at [phone] to schedule your appointment. -- Please call my nurse Ayanna at [phone] or send me a message in [employer] with any questions or concerns between appointments. documented in this encounter [facility] 11-14-2022 History of Presen t illness Narrative [...] which included preparing to see the patient, [id number] patient care, completing clinical documentation, and counseling and educating the patient/family/caregiver, ordering medications/labs. Juan Rolon APRN.CNP November 14, 2022 8:27 AM This note was partially generated using [employer] voice recognition system. Note was reviewed for accuracy. There may be minor misspellings or grammar miscues with [employer] voice recognition. documented in this encounter [facility] 10-23-2022 Miscellaneous Notes Patient returned call. She is at [facility] ER at this time. Jasmina Blue RN [...] to report that she was seen in [facility] today and is waiting on [...] Flor Padgett LPN documented in this encounter [facility] 10-23-2022 Influenza virus A and B RNA and SARS-CoV-2 (COVID-19) N gene panel KRUPA+probe (Resp) COVID 19 RESULT: SARS-CoV-2 (Agent of COVID-19) Not Detected by RT-PCR or equivalent method. wilbur [id number]_[employer] (PATRICIA)_EUA This test was developed and its performance characteristics determined by [facility]'s [facility] [place]. This test has been authorized by FDA under an Emergency Use Authorization (EUA). This test has been validated in accordance with the FDA's Guidance Document Policy for Diagnostics Testing in Laboratories Certified to Perform High Complexity Testing under CLIA prior to Emergency use Authorization for Coronavirus Disease 2019 during the Public Health Emergency issued on January 17, 2020. Test performed by [facility], [facility] [place], [address], [place] [address]. INFLUENZA A PCR: Negative for Influenza A by RT-PCR INFLUENZA B PCR: Negative for Influenza B by RT-PCR [facility] documented as of this encounter (statuses as of 03/18/2022) [facility] History of Past illness Narrative* Problem Noted [...] of this encounter (statuses as of 03/19/2022) [facility] History of Past illness Narrative* Problem Noted [...] of this encounter (statuses as of 05/31/2022) [facility] History of Past illness Narrative* Problem Noted [...] of this encounter (statuses as of 05/31/2022) [facility] of Past illness Narrative* Problem Noted [...] of this encounter (statuses as of 06/07/2022) [facility] History of Past illness Narrative* Problem Noted [...] of this encounter (statuses as of 06/15/2022) [facility] History of Past illness Narrative* Problem Noted [...] of this encounter (statuses as of 06/20/2022) [facility] of Past illness Narrative* Problem Noted [...] of this encounter (statuses as of 06/22/2022) [facility] of Past illness Narrative* Problem Noted [...] of this encounter (statuses as of 06/22/2022) [facility] History of Past illness Narrative* Problem Noted [...] of this encounter (statuses as of 06/23/2022) [facility] of Past illness Narrative* Problem Noted [...] of this encounter (statuses as of 07/03/2022) [facility] of Past illness Narrative* Problem Noted [...] of this encounter (statuses as of 07/03/2022) [facility] of Past illness Narrative* Problem Noted [...] of this encounter (statuses as of 09/29/2022) [facility] of Past illness Narrative* Problem Noted [...] of this encounter (statuses as of 10/21/2022) [facility] of Past illness Narrative* Problem Noted [...] of this encounter (statuses as of 10/23/2022) [facility] of Past illness Narrative* Problem Noted [...] of this encounter (statuses as of 10/23/2022) [facility] of Past illness Narrative* Problem Noted [...] of this encounter (statuses as of 11/19/2022) [facility] of Past illness Narrative* Problem Noted [...] of this encounter (statuses as of 12/18/2022) [facility] of Past illness Narrative* Problem Noted [...] of this encounter (statuses as of 01/26/2023) [facility] of Past illness Narrative* Problem Noted [...] of this encounter (statuses as of 02/05/2023) [facility] of Past illness Narrative* Problem Noted [...] of this encounter (statuses as of 02/09/2023) [facility] of Past illness Narrative* Problem Noted [...] of this encounter (statuses as of 03/05/2023) [facility] noteThere may be information available, but it has not been provided by the sender.[facility] Work Phone: Evaluation note* Diagnosis Pilonidal abscess of elyssa cleft- Primary Pilonidal cyst with abscess [facility] Well adult exam- Primary Routine [...] and immunity disorders [facility] Diagnosis Dysphagia, unspecified type Sensation of foreign body in throat Other symptoms involving head and neck [facility] Diagnosis Lung nodules Other nonspecific abnormal finding of lung field [facility] Diagnosis Bipolar disorder, in partial remission, most recent episode depressed (HCC)- Primary Bipolar I disorder, most recent episode (or current) depressed, in partial or unspecified remission Chronic insomnia Insomnia, unspecified ALFREDO (generalized anxiety disorder) Generalized anxiety disorder [facility] Diagnosis Urinary frequency- Primary SOB (shortness of breath) Shortness of breath [facility] Diagnosis Moderate mixed bipolar I disorder (HCC)- Primary Bipolar I disorder, most recent episode (or current) mixed, moderate History of posttraumatic stress disorder (PTSD) [facility] Diagnosis Acute cough- Primary Nasal congestion Other diseases of nasal cavity and sinuses [facility] Diagnosis Moderate mixed bipolar I disorder (HCC)- Primary Bipolar I disorder, most recent episode (or current) mixed, moderate Generalized anxiety disorder History of attention deficit hyperactivity disorder (ADHD) [facility] Diagnosis Generalized anxiety disorder- Primary Bipolar 1 disorder, depressed, moderate (HCC) Bipolar I disorder, most recent episode (or current) depressed, moderate History of attention deficit hyperactivity disorder (ADHD) History of posttraumatic stress disorder (PTSD) [facility] Diagnosis Cyst near tailbone- Primary Pilonidal [...] for thyroid disorder [facility] Diagnosis NO SHOW- Primary [facility] Instruction Description Start Date CompletedPatient advised to follow-up with Primary Care Physician for BMI management. [facility] Work Phone: Instructions* Instruction Description Start Date CompletedPatient advised to follow-up with Primary Care Physician for BMI management. [facility] Work Phone: Reason for referral (narrative)* Diagnostic Procedure Only (Routine) - Closed Specialty Diagnoses / Procedures Referred By Portia rivera Referred To Contact US IMAGING Diagnoses Dysphagia, unspecified type Sensation of foreign body in throat Procedures US THYROID/PARATHYROID US SOFT TISSUE HEAD & NECK REAL TIME IMGE Tanisha Anderson APRN.CNP [address] [place] [address] Us Imaging Referral ID Status Reason Start Date Expiration Date V isits Requested Visits Authorized [id number] Closed Auto-Generate d Referral 06/07/2022 07/07/2023 1 1 [facility] Summary Purpose Family History No Family History Records FoundNo Family History Records FoundThere may be information available, but it has not been provided by the sender.There may be information available, but it has not been provided by the sender.No Family History Records FoundNo Family History Records FoundNo Family HistoryRecords Found Advance Directives No Advanced Directives Records FoundDocuments on File Type Date Recorded Patient Housecleaner Expl anation Advance Directive(s) 10/15/2018 11:01 AM Documents on File Type Date Recorded Patient Housecleaner Expl anation Advance Directive(s) 10/15/2018 11:01 AM [...] COMPUTED TOMOGRAPHY THORAX W/O CNTRST Tanisha Hughes APRN.[employer] [address] [place] [address] Ct Imaging Referral ID Status Reason Start Date Expiration Date Visits Requested Visits Authorized [id number] Authorized Auto-Generat ed Referral 06/07/2022 11/18/2022 1 1 Specialty Diagnoses / Procedures Referred By Portia t Referred To Contact US IMAGING Diagnoses Dysphagia, unspecified type Sensation of foreign body in throat Procedures US THYROID/PARATHYROID US SOFT TISSUE HEAD & NECK REAL TIME IMGE DOCM Tanisha Hughes, LUPE.[employer] [address] [place] [address] Us Imaging Referral ID Status Reason Start Date Expiration Date Visits Requested Visits Authorized [id number] Authorized Auto-Generat ed Referral 06/07/2022 07/07/2023 1 1 Referral ID Status Reason Start Date Expiration Date V isits Requested Visits Authorized [id number] Closed Auto-Generate d Referral 06/07/2022 11/18/2022 1 1 Specialty Diagnoses / Procedures Referred By Portia t Referred To Contact General Surgery Diagnoses Cyst near tailbone Well adult exam Myalgia Arthralgia, unspecified joint Procedures CONSULT TO GENERAL SURGERY OFFICE/OUTPATIENT [facility] 60-74 MINUTES Tanisha Hughes, [employer]WING AND ASSEMBLY SUPERVISOR.[employer] [address] [place] [address] Referral ID Status Reason Start Date Expiration Date Visits Requested Visits Authorized [id number] Authorized PCP Requested Referral 01/26/2023 01/26/2024 1 1 Additional Source Comments INFORMATION SOURCE (unrecogn ized section and content) DATE CREATED AUTHOR AUTHOR'S ORGANIZ ATION [facility] DATE CREATED AUTHOR AUTHOR'S ORGANIZ ATION 05/31/2023 [facility] DATE CREATED AUTHOR AUTHOR'S ORGANIZ ATION 06/29/2023 [facility] DATE CREATED AUTHOR AUTHOR'S ORGANIZ ATION 11/04/2023 [facility] ([place]) Reason for Visit (unrecogniz ed [...] NECK REAL TIME IMGE DOCM Tanisha Hughes, SAWING AND ASSEMBLY SUPERVISOR.[employer] [address] [place] [address] Us Imaging Referral ID Status Reason Start Date Expiration Date V isits Requested Visits Authorized [id number] Closed Auto-Generate d Referral 06/07/2022 07/07/2023 [address] Specialty Diagnoses / Procedures Referred By Contac t Referred To Contact CT IMAGING Diagnoses Lung nodules Procedures CT CHEST WO IVCON DIAGNOSTIC COMPUTED TOMOGRAPHY THORAX W/O CNTRST Tanisha Hughes, SAWING AND ASSEMBLY SUPERVISOR.[employer] [address] [place] [address] Ct Imaging Referral ID Status Reason Start Date Expiration Date V isits Requested Visits Authorized [id number] Closed Auto-Generate d Referral 06/07/2022 11/18/2022 1 1 Reason Comments Opened In Error Reason Comments Patient Update Reason Comments Anxiety Depression Specialty Diagnoses / Procedures Referred By Contac t Referred To Contact Family Practice / FAMILY MEDICINE Diagnoses At risk for increased anxiety increased anxiety Procedures OFFICE/OUTPATIENT ESTABLISHED MOD MDM 30-39 MIN 4C EST Rober Mojica, DO [address] [place] [address] George Latham APRN.[employer] [address] [place] [address] Referral ID Status Reason Start Date Expiration Date V isits Requested Visits Authorized [id number] Authorized 07/03/2022 10/01/2022 10 10 Reason Comments [...] or prosecute any alcohol or drug abuse patient.[facility] the event this information is protected by the Federal Confidentiality of Alcohol and Drug Abuse Patient Records regulations: The Federal rules restrict any use of the information to criminally investigate or prosecute any alcohol or drug abuse patient.[facility] the event this information is protected by the Federal Confidentiality of Alcohol and Drug Abuse Patient Records regulations: The Federal rules restrict any use of the information to criminally investigate or prosecute any alcohol or drug abuse patient.[facility] the event this information is protected by the Federal Confidentiality of Alcohol and Drug Abuse Patient Records regulations: The Federal rules restrict any use of the information to criminally investigate or prosecute any alcohol or drug abuse patient.[facility] the event this information is protected by the Federal Confidentiality of Alcohol and Drug Abuse Patient Records regulations: The Federal rules restrict any use of the information to criminally investigate or prosecute any alcohol or drug abuse patient.[facility] the event this information is protected by the Federal Confidentiality of Alcohol and Drug Abuse Patient Records regulations: The Federal rules restrict any use of the information to criminally investigate or prosecute any alcohol or drug abuse patient.[facility] the event this information is protected by the Federal Confidentiality of Alcohol and Drug Abuse Patient Records regulations: The Federal rules restrict any use of the information to criminally investigate or prosecute any alcohol or drug abuse patient.[facility] the event this information is protected by the Federal Confidentiality of Alcohol and Drug Abuse Patient Records regulations: The Federal rules restrict any use of the information to criminally investigate or prosecute any alcohol or drug abuse patient.[facility] the event this information is protected by the Federal Confidentiality of Alcohol and Drug Abuse Patient Records regulations: The Federal rules restrict any use of the information to criminally investigate or prosecute any alcohol or drug abuse patient.[facility] the event this information is protected by the Federal Confidentiality of Alcohol and Drug Abuse Patient Records regulations: The Federal rules restrict any use of the information to criminally investigate or prosecute any alcohol or drug abuse patient.[facility] the event this information is protected by the Federal Confidentiality of Alcohol and Drug Abuse Patient Records regulations: The Federal rules restrict any use of the information to criminally investigate or prosecute any alcohol or drug abuse patient.[facility] the event this information is protected by the Federal Confidentiality of Alcohol and Drug Abuse Patient Records regulations: The Federal rules restrict any use of the information to criminally investigate or prosecute any alcohol or drug abuse patient.[facility] the event this information is protected by the Federal Confidentiality of Alcohol and Drug Abuse Patient Records regulations: The Federal rules restrict any use of the information to criminally investigate or prosecute any alcohol or drug abuse patient.[facility] the event this information is protected by the Federal Confidentiality of Alcohol and Drug Abuse Patient Records regulations: The Federal rules restrict any use of the information to criminally investigate or prosecute any alcohol or drug abuse patient.[facility] the event this information is protected by the Federal Confidentiality of Alcohol and Drug Abuse Patient Records regulations: The Federal rules restrict any use of the information to criminally investigate or prosecute any alcohol or drug abuse patient.[facility] the event this information is protected by the Federal Confidentiality of Alcohol and Drug Abuse Patient Records regulations: The Federal rules restrict any use of the information to criminally investigate or prosecute any alcohol or drug abuse patient.[facility] the event this information is protected by the Federal Confidentiality of Alcohol and Drug Abuse Patient Records regulations: The Federal rules restrict any use of the information to criminally investigate or prosecute any alcohol or drug abuse patient.[facility] the event this information is protected by the Federal Confidentiality of Alcohol and Drug Abuse Patient Records regulations: The Federal rules restrict any use of the information to criminally investigate or prosecute any alcohol or drug abuse patient.[facility] the event this information is protected by the Federal Confidentiality of Alcohol and Drug Abuse Patient Records regulations: The Federal rules restrict any use of the information to criminally investigate or prosecute any alcohol or drug abuse patient.[facility] the event this information is protected by the Federal Confidentiality of Alcohol and Drug Abuse Patient Records regulations: The Federal rules restrict any use of the information to criminally investigate or prosecute any alcohol or drug abuse patient.[facility] the event this information is protected by the Federal Confidentiality of Alcohol and Drug Abuse Patient Records regulations: The Federal rules restrict any use of the information to criminally investigate or prosecute any alcohol or drug abuse patient.[facility] the event this information is protected by the Federal Confidentiality of Alcohol and Drug Abuse Patient Records regulations: The Federal rules restrict any use of the information to criminally investigate or prosecute any alcohol or drug abuse patient.[facility] the event this information is protected by the Federal Confidentiality of Alcohol and Drug Abuse Patient Records regulations: The Federal rules restrict any use of the information to criminally investigate or prosecute any alcohol or drug abuse patient.[facility] Care Teams (unrecognized sec tion and content) Manager Garden Relationship Specialty Start Date End Date Rober Mojica, DO [address] [place] [address] PCP - General Family Practice 10/28/14 Manager Garden Relationship Specialty Start Date End Date Rober Mojica DO [address] [place] [address] PCP - General Family Practice 10/28/14 Manager Garden Relationship Specialty Start Date End Date Rober Mojica DO [address] [place] [address] PCP - General Family Practice 10/28/14 Manager Garden Relationship Specialty Start Date End Date Rober Mojica DO [address] [place] [address] PCP - General Family Practice 10/28/14 Manager Garden Relationship Specialty Start Date End Date Rober Mojica DO [address] [place] [address] PCP - General Family Practice 10/28/14 Manager Garden Relationship Specialty Start Date End Date Rober Mojica, DO [address] [place] [address] PCP - General Family Practice 10/28/14 Manager Garden Relationship Specialty Start Date End Date Rober Mojica, DO [address] [place] [address] PCP - General Family Practice 10/28/14 Manager Garden Relationship Specialty Start Date End Date Rober Mojica, DO [address] [place] [address] PCP - General Family Practice 10/28/14 Manager Garden Relationship Specialty Start Date End Date Rober Mojica, DO [address] [place] [address] PCP - General Family Practice 10/28/14 Manager Garden Relationship Specialty Start Date End Date Rober Mojica, DO [address] [place] [address] PCP - General Family Practice 10/28/14 Manager Garden Relationship Specialty Start Date End Date Rober Mojica, DO [address] [place] [address] PCP - General Family Medicine 10/28/14 Manager Garden Relationship Specialty Start Date End Date Rober Mojica, DO [address] [place] [address] PCP - General Family Medicine 10/28/14 Manager Garden Relationship Specialty Start Date End Date Rober Mojica, DO [address] [place] [address] PCP - General Family Medicine 10/28/14 Manager Garden Relationship Specialty Start Date End Date Rober Mojica, DO [address] [place] [address] PCP - General Family Medicine 10/28/14 Manager Garden Relationship Specialty Start Date End Date Rober Mojica, DO [address] [place] [address] PCP - General Family Medicine 10/28/14 Manager Garden Relationship Specialty Start Date End Date Rober Mojica, DO [address] [place] [address] PCP - General Family Medicine 10/28/14 Manager Garden Relationship Specialty Start Date End Date Rober Mojica, DO [address] [place] [address] PCP - [facility] 10/28/14 Manager Garden Relationship Specialty Start Date End Date Rober Mojica, DO [address] [place] [address] PCP - General [facility] 10/28/14 Manager Garden Relationship Specialty Start Date End Date Rober Mojica, DO [address] [place] [address] PCP - General [facility] 10/28/14 FOR RECORDS PERTAINING TO PATIENTS WHO [...] BE BASED ON THE PRIMARY CLINICAL RECORDS. [facility] [employer] provides no warranty or guarantee of the accuracy or completeness of information in this document.
--- NOTE | 2024-01-10 13:05 | EDS_ITS ---
HPI History of Present Illness HPI Narrative: Patient presents with pain and swelling to her right thigh, knee, and lower leg. Patient states that began yesterday. Patient dates is gradually getting worse. Patient describes her pain as dull. Patient states it is better when she is able to keep it elevated. Patient had recent ACL repair of her right knee. Patient states she contacted her surgeon who referred her to the emergency department for possible DVT. Patient denies any fevers or chills. Patient denies any new trauma or injury. Patient admits to some tingling down her right leg. Chief Complaint: Lower Extremity Injury Informant: patient Onset/Context/Timing Onset: Yesterday Context: Gradual Onset Timing: Continuous Quality of Pain: Dull Location: Right thigh, knee, and lower leg Worsened by: Nothing Relieved by: Elevation Associated Symptoms Associated Symptoms: Positive for Parasthesia; Negative for Weakness or Loss of Funtion [facility] Medical History ADHD Alcohol abuse Alcohol use disorder, mild, in early remission Anemia Anxiety Anxiety and depression ASCUS with positive high risk HPV Bipolar disorder, unspecified Cardiology follow-up encounter Chronic cough Contact with and (suspected) exposure to other viral communicable diseases Generalized anxiety disorder Genital herpes History of echocardiogram History of edema History of irregular heartbeat History of meningitis History of multiple pulmonary nodules Marijuana use Palpitations PTSD (post-traumatic stress disorder) Smoker Suicide attempt Tobacco use URI (upper respiratory infection) Varicosities of leg Wears glasses Home Medications quetiapine 200 mg tablet (Seroquel) 100 mg PO DAILY MOOD STABILIZATION 03/09/23 [History Last Taken 12/30/23] ibuprofen 600 mg tablet 600 mg PO Q6H PRN PRN pain 3 days #20 TABLETS 11/02/23 [Rx Last Taken 12/24/23] cholecalciferol (vitamin D3) 25 mcg (1,000 unit) capsule 25 mcg PO DAILY SUPPLEMENT 11/06/23 [History Last Taken 12/24/23] Allergy/AdvReac Type Severity Reaction Status Date / Time azithromycin [From Zithromax] Allergy Rash Verified 12/31/23 11:06 amoxicillin AdvReac Vomiting Verified 12/31/23 11:06 red dye AdvReac Vomiting Verified 12/31/23 11:06 Family History Mother Anxiety and depression Bipolar disorder Polysubstance abuse Other Arthritis Cancer Heart disease Myocardial infarction Surgical History History of arthroscopic knee surgery History of hip surgery History of tubal ligation History of varicose vein stripping Social History household members: spouse and family Smoking Status: Current every day smoker tobacco type: cigars quit status: has quit before alcohol intake: current alcohol intake frequency: 3 or more drinks per day Alcohol type: beer details: 4-6, 12 ounce beers daily since age 18. substance use type: marijuana caffeine: Yes Type: carbonated beverages Number of servings: 2, coffee and tea what type of physical activity do you participate in: none ROS ROS ED Constitutional Constitutional ED: Denies chills or fever(s) Eyes Eyes: Denies blurry vision or change in vision ENT ENT ED: Denies rhinorrhea or sore throat Cardiovascular Cardiovascular: Denies chest pain or palpitations Respiratory/Chest Respiratory/Chest: Reports dyspnea; Denies cough Gastrointestinal Gastrointestinal: Reports nausea; Denies vomiting Genitourinary Genitourinary ED: Denies dysuria or hematuria Musculoskeletal Musculoskeletal: Denies back pain or neck pain Integumentary Denies abscess or rash Neurologic Neurologic: Denies headache(s) or weakness Allergic/Immunologic Allergic/Immunologic ED: Denies mouth swelling or urticaria EXAM Physical Exam Const Vital Signs: 01/10/24 11:39 Temperature 97.9 F Temperature Source Temporal Pulse Rate 72 Respiratory Rate 16 Blood Pressure 125/99 H Blood Pressure Mean 107 Pulse Ox 99 Oxygen Delivery Method Room Air Positive well nourished and well developed General Appearance ED: well developed and NAD HEENT Reports moist mucous membranes Neck full ROM and supple Extremity Extremity Narrative: There is mild tenderness over the right calf and lateral aspect of the right thigh. The surgical incisions are healing well. There is no sign of any infection. There is no warmth or erythema over the knee joint. Range of motion was slightly limited in all motions of the right knee secondary to pain. Pedal pulses are equal bilaterally. Sensation was intact to light touch in all digits. Capillary refill was less than 2 seconds in all digits. Strength is 5/5 bilaterally in the lower extremities. Neuro oriented x3, CN's II-XII intact bilaterally, moves all extremities and no sensory deficits noted Sensorium / Orientation: alert Motor Exam: strength 5/5 throughout MDM MDM MDM Narrative Medical decision making narrative: Differential diagnosis includes DVT and postoperative pain. Venous duplex of the right lower extremity will be obtained to assess for DVT. Radiography Diagnostic Testing: Venous duplex of the right lower extremity was obtained. There is no evidence of DVT. Treatment and Re-Evaluation Narrative: Patient was advised of her findings. Patient was instructed to continue to elevate her right leg. Patient was instructed to continue doing her physical therapy. Patient was instructed to follow-up with her primary care physician in 5 to 7 days. Patient understood and was agreeable with the plan. All questions were answered. Discharge Plan Triage Chief Complaint: Lower Extremity Injury ED Provider: Rohit Liu Dx/Rx/DC Orders Clinical Impression: Postoperative pain of extremity Instructions: ED Pain, Acute, Uncertain Cause Prescriptions: No Action cholecalciferol (vitamin D3) 25 mcg (1,000 unit) capsule 25 mcg PO DAILY quetiapine [Seroquel] 200 mg Tablet 100 mg PO DAILY ibuprofen 600 mg tablet 600 mg PO Q6H PRN PRN (Reason: pain) 3 Days Qty: 20 0RF Primary Care Provider: MARTINEZ OSMAN Referrals: Qamar Burrell DO [Med Staff - Active Staff] - 3-5 Days MARTINEZ OSMAN CRNP [Primary Care Provider] - 3-5 Days Disposition Disposition: Home, Self Care
== END 2024-01-10 13:50 | disposition home or self-care (01) ==
PROVIDERS: Emergency Provider Emergency Medicine; PCP Nurse Practitioner Adult Health; Visit Provider Emergency Medicine
DX: G89.18 Other acute postprocedural pain (principal); F12.90 Cannabis use, unspecified, uncomplicated; F17.290 Nicotine dependence, other tobacco product, uncomplicated; M79.651 Pain in right thigh
CPT/HCPCS: 93971; 99282

== ENCOUNTER → 2024-04-03 | Outpatient (CLI) | payer OTHER, SELFPAY ==
[2024-04-03 12:26] LABS: Absolute Lymphocyte Count 2.36 X10^3/uL (0.83-4.51); Absolute Neutrophil Count 7.4 X10^3/uL (2.0-7.7); Basophil# 0.07 X10^3/uL; Basophil% 0.6 % (0-1); Eosinophil# 0.24 X10^3/uL; Eosinophils% 2.2 % (0-5); Hematocrit 40.6 % (37-47); Hemoglobin 13.5 g/dL (12.0-15.0); Lymphocyte # 2.36 X10^3/ul (0.83-4.51); Lymphocyte % 21.7 % (19-41); Mean Corp Hgb Conc 33.3 g/dL (32-36); Mean Corpuscular Hgb 28.8 pg (27.0-32.0); Mean Corpuscular Volume 86.8 fL (81-99); Monocyte# 0.82 X10^3/uL; Monocyte% 7.6 % (0-10); NRBC Flagged by Analyzer 0 % (0-5); Neutrophil # 7.35 X10^3/uL (2.7-7.7); Neutrophil % 67.7 % (47-70); Platelet Count 260 K/mm3 (150-450); RBC Distribution Width CV 13.4 % (11.6-14.6); RBC Distribution Width SD 42.4 fl (35.1-43.9); Red Blood Count 4.68 M/mm3 (4.2-5.4); White Blood Count 10.9 K/mm3 (4.4-11.0)
[2024-04-03 12:46] LABS: AST(SGOT) 16 U/L (15-37); Alanine Aminotransfer ALT/SGPT 19 U/L (13-56); Albumin, Serum 3.8 g/dL (3.2-5.0); Alkaline Phosphatase 47 U/L (45-117); Anion Gap 5 (5-15); BUN 13 mg/dL (7-18); BUN/Creat Ratio 13.2 RATIO (10-20); Calcium,Total 8.7 mg/dL (8.5-10.1); Chloride 109 mmol/L (98-107); Creatinine, Serum 0.99 mg/dL (0.55-1.02); EST Glomerular Filtration Rate 69 mL/min (>60); Est Glom Filt Rate - Afr Amer 84 mL/min (>60); Globulin 3.8 g/dL (2.2-4.2); Glucose 94 mg/dL (74-106); Potassium 3.8 mmol/L (3.5-5.1); Protein, Total 7.6 g/dL (6.4-8.2); Sodium Level 139 mmol/L (136-145)
[2024-04-03 18:07] LABS: Vitamin D,25 Hydroxy 33.2 ng/mL
== END | disposition home or self-care (01) ==
LOC: MFPLAB 10:04
PROVIDERS: PCP Family Medicine; Visit Provider Family Medicine
DX: E55.9 Vitamin D deficiency, unspecified (principal)
CPT/HCPCS: 36415; 80053; 82306; 85025

== ENCOUNTER 2024-05-23 17:53 | Emergency (ER) | payer BC, OTHER, SELFPAY ==
[2024-05-23 17:54] VITALS: BP 134/85; PULSE 91; RESP 16; TEMP 36.4; O2SAT 99; BMI 26.6
--- NOTE | 2024-05-23 18:15 | RAD_ITS ---
STUDY: X-RAY CHEST REASON FOR EXAM: Female, 34 years old. cough TECHNIQUE: PA and lateral COMPARISON: September 12, 2023 FINDINGS: The lungs are clear and expanded. There is no demonstrated pleural abnormality. Normal size heart. Normal mediastinum and kiki. Normal visualized pulmonary arteries. Normal visualized aortic arch and descending thoracic aorta. Normal visualized thoracic spine. Normal visualized ribs, clavicles, and shoulders. There is no demonstrated abnormality of the visualized soft tissue structures of the upper abdomen. RAD/Chest PA and Lateral IMPRESSION: Normal x-ray examination of the chest. Electronically Signed: Alvin Bone MD at 18:35 EDT ,
--- NOTE | 2024-05-23 18:17 | EX.ED.DYSGE1 ---
HPI <BHAVIN Reddy - Last Filed: 05/23/24 21:22> History of Present Illness Chief Complaint: Cough Narrative Narrative: 34-year-old female states she has a chronic smoker's cough and a few hours ago while coughing had phlegm with a small amount of bright red streaking that then lightened to pink. 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 She denies shortness of breath. She states she has had a few episodes while there is no symptoms normal chest pain lasted 15 minutes respiratory or cardiac in bed the other night but has not noted it since and when she is active at work she has no chest pain. No fever or chills. PFSH <BHAVIN Reddy - Last Filed: 05/23/24 21:22> [facility], [facility] Medical History ADHD Alcohol abuse Alcohol use disorder, mild, in early remission Anemia Anxiety Anxiety and depression ASCUS with positive high risk HPV Bipolar disorder, unspecified Cardiology follow-up encounter Chronic cough Contact with and (suspected) exposure to other viral communicable diseases Generalized anxiety disorder Genital herpes History of echocardiogram History of edema History of irregular heartbeat History of meningitis History of multiple pulmonary nodules Marijuana use Palpitations PTSD (post-traumatic stress disorder) Smoker Suicide attempt Tobacco use URI (upper respiratory infection) Varicosities of leg Wears glasses Home Medications ?Medication ?Instructions ?Recorded ?Last Taken ?Type quetiapine 200 mg tablet (Seroquel) 100 mg PO DAILY MOOD STABILIZATION 03/09/23 12/30/23 History ibuprofen 600 mg tablet 600 mg PO Q6H PRN PRN pain 3 days 11/02/23 12/24/23 Rx #20 TABLETS cholecalciferol (vitamin D3) 25 25 mcg PO DAILY SUPPLEMENT 11/06/23 12/24/23 History mcg (1,000 unit) capsule Allergy/AdvReac Type Severity Reaction Status Date / Time azithromycin (From Zithromax) Allergy Rash Verified 05/23/24 17:54 amoxicillin AdvReac Vomiting Verified 05/23/24 17:54 red dye AdvReac Vomiting Verified 05/23/24 17:54 Family History Mother Anxiety and depression Bipolar disorder Polysubstance abuse Other Arthritis Cancer Heart disease Myocardial infarction Surgical History History of arthroscopic knee surgery History of hip surgery History of tubal ligation History of varicose vein stripping Social History household members: spouse and family Smoking Status: Current every day smoker tobacco type: cigars quit status: has quit before alcohol intake: current alcohol intake frequency: 3 or more drinks per day Alcohol type: beer details: 4-6, 12 ounce beers daily since age 18. substance use type: marijuana caffeine: Yes Type: carbonated beverages Number of servings: 2, coffee and tea what type of physical activity do you participate in: none ROS <BHAVIN Reddy - Last Filed: 05/23/24 21:22> ROS ED ROS Narrative Constitutional: Negative for fever, chills, malaise. CVS: Negative for palpitations, syncope. Respiratory: Positive for cough. No shortness of breath. GI: Negative for abdominal pain, nausea, vomiting, hematemesis, melena. EXAM <BHAVIN Reddy - Last Filed: 05/23/24 21:22> Physical Exam Narrative Exam Narrative: CONST: Patient sitting in no acute distress. EYES: Normal inspection. ENT: Normal inspection, moist mucous membranes. NECK: Normal inspection. RESP: No respiratory distress, CTAB. CVS: Regular rate and rhythm, no murmur, no gallop. SKIN: Color normal, no rash, warm, dry, intact. EXTREMITIES: Normal appearance, no pedal edema. NEURO: Alert and answering questions appropriately. PSYCH: Normal affect. Const Vital Signs: 05/23/24 17:54 05/23/24 18:18 Temperature 97.5 F L Temperature Source Temporal Pulse Rate 91 Respiratory Rate 16 Respiratory Effort Normal Non-Labored Respiratory Depth Normal Respiratory Pattern Normal Blood Pressure 134/85 H Blood Pressure Mean 101 Pulse Ox 99 Oxygen Delivery Method Room Air Room Air <Dr. Herman Meza MD - Last Filed: 05/23/24 20:18> Physical Exam Const Vital Signs: 05/23/24 17:54 05/23/24 18:18 Temperature 97.5 F L Temperature Source Temporal Pulse Rate 91 Respiratory Rate 16 Respiratory Effort Normal Non-Labored Respiratory Depth Normal Respiratory Pattern Normal Blood Pressure 134/85 H Blood Pressure Mean 101 Pulse Ox 99 Oxygen Delivery Method Room Air Room Air MDM <BHAVIN Reddy - Last Filed: 05/23/24 21:22> [facility] Narrative Medical decision making narrative: Patient with history of tobacco use and chronic cough noticed small amount of blood-tinged sputum this afternoon. She appears well and nontoxic. Vital signs stable. CXR shows no acute process. I suspect her chronic smoker's cough led to small amount of hemoptysis. I do not think she requires further emergent lab work. She had some atypical chest pain earlier this week but none currently and is PERC negative. I discussed return precautions and she was discharged in stable condition. I have personally performed a face to face assessment of the patient and have reviewed the MAHI Note. I performed a substantive portion of the visit including all aspects of the following. My baron findings include: History is remarkable for blood-tinged sputum with coughing. Patient has no history of VTE. Patient has no risk factors for VTE. Patient does admit to tobacco use. She denies leg pain, swelling discoloration. Exam is remarkable for slight elevation of blood pressure. HEENT is unremarkable. Lungs are clear auscultation with symmetric breath sounds. Heart is regular. Rate is normal. There is no murmur, gallop or rub. Medical Decision Making with reproducible chest pain suspect this to be musculoskeletal. Suspect her hemoptysis is due to the coughing and rupture of blood vessel. Patient is PERC negative. Wells score for DVT is not applicable. Wells score for PE is less than 3. Other additions or changes: ED attending interpretation of 2 view chest x-ray reveals no acute parenchymal abnormality. Cardiac silhouette size normal. Hilum is normal. Osseous trucks unremarkable. Radiography Diagnostic Testing: Clinical Impression(s) from Imaging Studies Chest X-Ray 05/23/24 18:15 IMPRESSION: Normal x-ray examination of the chest. Electronically Signed: Alvin Bone MD at 18:35 EDT , <Dr. Herman Meza MD - Last Filed: 05/23/24 20:18> [facility] MDM Narrative Medical decision making narrative: Patient with history of tobacco use and chronic cough noticed small amount of blood-tinged sputum this afternoon. She appears well and nontoxic. Vital signs stable. I have personally performed a face to face assessment of the patient and have reviewed the MAHI Note. I performed a substantive portion of the visit including all aspects of the following. My baron findings include: History is remarkable for blood-tinged sputum with coughing. Patient has no history of VTE. Patient has no risk factors for VTE. Patient does admit to tobacco use. She denies leg pain, swelling discoloration. Exam is remarkable for slight elevation of blood pressure. HEENT is unremarkable. Lungs are clear auscultation with symmetric breath sounds. Heart is regular. Rate is normal. There is no murmur, gallop or rub. Medical Decision Making with reproducible chest pain suspect this to be musculoskeletal. Suspect her hemoptysis is due to the coughing and rupture of blood vessel. Patient is PERC negative. Wells score for DVT is not applicable. Wells score for PE is less than 3. Other additions or changes: 2 view chest x-ray reveals no acute parenchymal abnormality. Cardiac silhouette size normal. Hilum is normal. Osseous trucks unremarkable. Radiography Diagnostic Testing: Clinical Impression(s) from Imaging Studies Chest X-Ray 05/23/24 18:15 IMPRESSION: Normal x-ray examination of the chest. Electronically Signed: Alvin Bone MD at 18:35 EDT Reading Location ID and State: [address] [place] [address] Tel , Service support , Discharge Plan Triage Chief Complaint: Cough ED Midlevel Provider: Joanna Castellano ED Provider: Herman Meza Dx/Rx/DC Orders Clinical Impression: Cough with hemoptysis, Tobacco use Instructions: ED Hemoptysis Prescriptions: No Action cholecalciferol (vitamin D3) 25 mcg (1,000 unit) capsule 25 mcg PO DAILY quetiapine [Seroquel] 200 mg Tablet 100 mg PO DAILY ibuprofen 600 mg tablet 600 mg PO Q6H PRN PRN (Reason: pain) 3 Days Qty: 20 0RF Primary Care Provider: Kameron Beavers Referrals: Kameron Beavers MD [Primary Care Provider] - Activity Restrictions/Additional Instructions: Your chest x-ray shows no abnormalities. To decrease your chronic cough/avoid developing emphysema I strongly encourage you to stop smoking. If your symptoms significantly worsen please be reevaluated. Print Language: Uzbek Disposition Disposition: Home, Self Care Discharge Date/Time: 05/23/24 19:43
== END 2024-05-23 19:43 | disposition home or self-care (01) ==
PROVIDERS: Emergency Provider Emergency Medicine; PCP Family Medicine; Visit Provider Emergency Medicine
DX: R05.9 Cough, unspecified (principal); F31.9 Bipolar disorder, unspecified; R04.2 Hemoptysis; F12.90 Cannabis use, unspecified, uncomplicated; F17.210 Nicotine dependence, cigarettes, uncomplicated
CPT/HCPCS: 71046; 99282

== ENCOUNTER → 2024-06-11 | Outpatient (CLI) | payer BC, OTHER, SELFPAY ==
--- NOTE | 2024-06-11 14:51 | VDLE_ITS ---
Reason For Study: SWELLING RIGHT LEFT GSV is normal. CFV is compressible, spontaneous, phasic, CFV is compressible, spontaneous, phasic, competent, and demonstrates normal competent and demonstrates normal augmentation. augmentation. FV is compressible, spontaneous, phasic, competent and demonstrates normal augmentation. POP V is compressible, spontaneous, phasic, competent and demonstrates normal augmentation. T/P Trunk is compressible. PTV is compressible. RT PerV is compressible. Procedure This is a venous duplex using B-mode, color flow and spectral Doppler. Exam performed in department. The exam was diagnostic. A preliminary report was called and/or faxed to [facility]. VL/Venous Duplex US, Unilateral Interpretation Summary Deep veins of the right lower extremity are patent and compressible segmentally . There is no evidence of right lower extremity deep vein thrombosis. The right great sapheno us vein appears patent and compressible segmentally. Ordering Physician: Charmaine Cisneros Referring Physician: Charmaine Cisneros Performed By: ADM
== END | disposition home or self-care (01) ==
LOC: CVS 14:50
PROVIDERS: PCP Family Medicine; Referring Provider Physician Assistant Surgical; Visit Provider Physician Assistant Surgical
DX: R22.41 Localized swelling, mass and lump, right lower limb (principal)
CPT/HCPCS: 93971

== ENCOUNTER → 2024-08-22 | Outpatient (CLI) | payer BC, OTHER, SELFPAY ==
--- NOTE | 2024-08-22 12:18 | US_ITS ---
INDICATION: Excessive and frequent menstruation with regular cycle EXAMINATION: Ultrasound US Transvaginal Non-OB TECHNIQUE: Transvaginal (for optimal evaluation of the adnexa) pelvic ultrasound was performed. Grayscale, spectral waveform, and color flow Doppler evaluation of the adnexa. COMPARISON: FINDINGS: UTERUS: Anteverted. The uterus measures 10.1 x 6.1 x 4.4 cm. 10 x 9 x 8 mm right anterior fibroid and 13 x 10 x 8 mm left-sided fibroid. The endometrial stripe measures 10 mm in AP diameter which is within normal limits. Nabothian cysts. RIGHT OVARY: 2.3 x 2.9 x 1.9 cm. Non-enlarged, normal echogenicity. There is normal arterial inflow and venous outflow present in the right ovary. LEFT OVARY: 3.7 x 3.3 x 2.2 cm. Non-enlarged, normal echogenicity. There is normal arterial inflow and venous outflow present in the left ovary. FREE FLUID: None. US/Transvaginal Non- IMPRESSION: Fibroids. Nabothian cysts. Electronically Signed: Jonathan Power DO at 18:39 EDT Reading Location ID and State: [facility] / [place] Tel [phone], Service support ,
== END | disposition home or self-care (01) ==
PROVIDERS: PCP Family Medicine; Referring Provider Nurse Practitioner Family; Visit Provider Nurse Practitioner Family
DX: N92.0 Excessive and frequent menstruation with regular cycle (principal)
CPT/HCPCS: 76830

== ENCOUNTER → 2024-10-21 | Outpatient (CLI) | payer BC, OTHER, SELFPAY ==
[2024-10-21 18:56] LABS: AST(SGOT) 15 U/L (15-37); Alanine Aminotransfer ALT/SGPT 23 U/L (13-56); Albumin, Serum 3.8 g/dL (3.2-5.0); Alkaline Phosphatase 45 U/L (45-117); Anion Gap 8 (5-15); BUN 6 mg/dL (7-18); BUN/Creat Ratio 6.9 RATIO (10-20); Calcium,Total 8.6 mg/dL (8.5-10.1); Chloride 106 mmol/L (98-107); Creatinine, Serum 0.88 mg/dL (0.55-1.02); EST Glomerular Filtration Rate 79 mL/min (>60); Est Glom Filt Rate - Afr Amer 96 mL/min (>60); Globulin 3.8 g/dL (2.2-4.2); Glucose 111 mg/dL (74-106); Magnesium 2.3 mg/dL (1.6-2.6); Potassium 3.6 mmol/L (3.5-5.1); Protein, Total 7.6 g/dL (6.4-8.2); Sodium Level 137 mmol/L (136-145); T4 Free Direct 0.98 ng/dL (0.76-1.46)
== END | disposition home or self-care (01) ==
LOC: MFPLAB 15:04
PROVIDERS: PCP Family Medicine; Referring Provider Family Medicine; Visit Provider Family Medicine
DX: R00.2 Palpitations (principal)
CPT/HCPCS: 36415; 80053; 83735; 84439; 84443

== ENCOUNTER → 2024-11-28 | Outpatient (CLI) | payer BC, OTHER, SELFPAY ==
--- NOTE | 2024-11-28 13:05 | RAD_ITS ---
STUDY: X-RAY - LUMBAR SPINE REASON FOR EXAM: Female, 34 years old. pain, facet arthropathy TECHNIQUE: 2 view(s) of the lumbar spine were obtained. COMPARISON: 02/15/2021 FINDINGS: Normal lumbar lordosis. There is no substantial scoliosis. There is a normal alignment of the vertebrae. Normal vertebral bodies and endplates. Normal disc space heights. There is no demonstrated fracture. The soft tissue structures are unremarkable. RAD/Lumbar Spine 2 or 3 Views IMPRESSION: Continued normal x-ray examination of the lumbar spine. Electronically Signed: Flavio Pickens MD at 22:59 EST ,
== END | disposition home or self-care (01) ==
PROVIDERS: PCP Family Medicine; Referring Provider Family Medicine; Visit Provider Family Medicine
DX: M47.819 Spondylosis without myelopathy or radiculopathy, site unspecified (principal)
CPT/HCPCS: 72100

== ENCOUNTER → 2024-12-25 | Outpatient (CLI) | payer BC, OTHER, SELFPAY ==
--- NOTE | 2024-12-25 17:18 | STRESSREP ---
Stress Test Report Exercise stress test. 34-year-old with a history of chest pain Stress protocol: Resting EKG demonstrates normal sinus rhythm with a rate of 77 bpm resting blood pressure is 112/80 mmHg. The patient exercised according to the regular Ezekiel protocol for a total duration of 7 minutes and 20 seconds attaining a maximum heart rate of 173 bpm which was 92% of maximum predicted heart rate; the maximum workload was 10.1 metabolic equivalents. At rest there were no ST or T wave changes noted to suggest ischemia and at peak exercise upsloping ST changes only were noted which did not meet the criteria for ischemia. No clinical angina was noted the test was terminated due to the target heart rate being achieved/fatigue. The peak blood pressure was 164/70 mmHg. Rate-pressure product was 26,200. Conclusion Stress test with no EKG criteria for ischemia at a high workload
== END | disposition home or self-care (01) ==
PROVIDERS: PCP Family Medicine; Referring Provider Internal Medicine Cardiovascular Disease; Visit Provider Internal Medicine Cardiovascular Disease
DX: R00.2 Palpitations (principal); R07.2 Precordial pain; R06.02 Shortness of breath
CPT/HCPCS: 93017

== ENCOUNTER → 2025-04-24 | Outpatient (CLI) | payer BC, SELFPAY ==
--- NOTE | 2025-04-24 13:58 | VDLE_ITS ---
Reason For Study Reason For Study: RLE Pain RIGHT LEFT Portions of GSV appear to have been previously CFV is compressible, spontaneous, phasic, competent, removed. Vessel appears compressible from distal and demonstrates normal augmentation. thigh to SFJ. CFV is compressible, spontaneous, phasic, competent and demonstrates normal augmentation. FV is compressible, spontaneous, phasic, competent and demonstrates normal augmentation. POP V is compressible, spontaneous, phasic, competent and demonstrates normal augmentation. T/P Trunk is compressible. PTV is compressible. RT PerV is compressible. Procedure This is a venous duplex using B-mode, color flow and spectral Doppler. Exam performed in department. The exam was diagnostic. A preliminary report was called and/or faxed to Dr Beavers / [facility]. VL/Venous Duplex US, Unilateral Interpretation Summary Deep veins of the right lower extremity are patent and compressible segmentally . There is no evidence of right lower extremity deep vein thrombosis. The right great saphenous vein appears patent a nd compressible segmentally. Ordering Physician: Kameron Beavers Referring Physician: Kameron Beavers Performed By: Husam Marcelo RVT
--- OUTSIDE RECORDS SUMMARY | 2025-04-24 18:54 | XMS RPT_ITS | CCD ---
Author Organization [facility] Informat ion Partnership OTA [facility] Care Team Providers Care Gasket Inspector Name Role Phone Miguel TAVAREZ, Andry Bass Unavailable Nabil Wang PA-C Unavailable Rober Saba DO Primary Care Provider Rober Saba DO Primary Care Provider Rober Saba DO Primary Care Provider Rober Saba DO Primary Care Provider MAST POLLS OR SURVEYS INTERVIEWER-DIRECTOR OF CLAIMS, FLOR Attending Unavailabl e MAST POLLS OR SURVEYS INTERVIEWER-DIRECTOR OF CLAIMS, FLOR Primary Care Unavailabl e MAST POLLS OR SURVEYS INTERVIEWER-DIRECTOR OF CLAIMS, FLOR Attending Unavailabl e MAST POLLS OR SURVEYS INTERVIEWER-DIRECTOR OF CLAIMS, FLOR Primary Care Unavailabl e ROBER SABA Primary Care Unavailable MARCO ANTONIO COSTA Referring Unavailable ROBER SABA Primary Care Unavailable DENEEN ROLON Attending Unavailable ROBER SABA Primary Care Unavailable ROBER SABA Primary Care Unavailable MARCO ANTONIO COSTA Attending Unavailable GARCIA CHAWLA DO Admitting Unavailable GARCIA CHAWLA DO Primary Care Unavailable GARCIA CHAWLA DO Attending Unavailable ROBER SABA DO Consulting Unavailable ROBER SABA DO Referring Unavailable PROVIDER, UNKNOWN Consulting Unavailable DIANE MANRIQUEZ MD Primary Care Unavailable DIANE MANRIQUEZ MD Attending Unavailable DIANE MANRIQUEZ MD Admitting Unavailable YASMINE BEAVERS Referring Unavailable ANGEL HARRIS Attending Unavailable Unavailable Primary Care Provider UnavailCharmaine Altman Attending Unavailable Yasmine Beavers Primary Care Unavailable Charmaine Cisneros Referring Unavailable Herman Meza Attending Unavailable Schinner, Yasmine E Primary Care Unavailable Angel Gupta Referring Unavailable Angel Gupta Attending Unavailable Schinner, Yasmine E Primary Care Unavailable Schinner, Yasmine E Primary Care Unavailable Tracey Ryan Attending Unavailable Schinner, Yasmine E Primary Care Unavailable Angel Harris Referring Unavailable Angel Harris Attending Unavailable Schinner, Yasmine E Primary Care Unavailable Schinner, Yasmine E Referring Unavailable Irene Farrell NP Attending Unavailable Schinner, Yasmine E Primary Care Unavailable Schinner, Yasmine E Referring Unavailable Tracey Ryan Attending Unavailable Rohit Conteh Attending Unavailable Charmaine Cisneros Referring Unavailable Schinner, Yasmine E Primary Care Unavailable Schinner, Yasmine E Referring Unavailable Brii Ambriz NP Attending Unavailable Schinner, Yasmine E Primary Care Unavailable Schinner, Yasmine E Primary Care Unavailable Angel Harris Referring Unavailable Angel Harris Consulting Unavailable Rambo Tompkins Attending Unavailable Schinner, Yasmine E Primary Care Unavailable Schinner, Yasmine E Referring Unavailable Tracey Ryan Attending Unavailable Schinner, Yasmine E Primary Care Unavailable Schinner, Yasmine E Referring Unavailable Schinner, Yasmine E Attending Unavailable Schinner, Yasmine E Primary Care Unavailable Schinner, Yasmine E Referring Unavailable Schinner, Yasmine E Attending Unavailable Renee HAT MARKERZoe Referring Unavailable Renee HAT MARKERZoe Attending Unavailable Schinner, Yasmine E Primary Care Unavailable Allergies Allergy Classification Reported Allergen(s) Allergy Type Date of Onset Reaction(s) Facility (2 sources) Azithromycin Drug Allergy 1 rash [facility] Work Phone: (2 sources) RED DYE 40 drug allergy 1 [facility] Work Phone: (20 sources) Azithromycin; Translations: [AZITHROMYCIN] Drug Allergy 9 Rash [facility] (3 sources) Amoxicillin Drug Allergy 4 Vomiting, Nausea and Vomiting [facility] (1 source) Amoxicillin Drug Allergy [facility] (1 source) Azithromycin Drug Allergy [facility]ository (1 source) Amoxicillin Drug Allergy 4 [facility] Repository (1 source) Azithromycin Drug Allergy 4 [facility] Repository (1 source) Contrast media Drug allergy (disorder) [facility] Repository Medications Current Medications Medication Drug Class(es) Dates Sig (Normalized) Sig (Original) ALPRAZolam 0.25 mg oral tablet (8 sources) Benzodiazepine Start: 09-22-2022 End: 11-12-2022 take 1 tablet by mouth every twenty-four hours as needed ALPRAZolam (XANAX) 0.25 mg tablet Take 1 tablet by mouth at bedtime as needed for up to 30 days. 30 tablet 0 10/13/2022 11/12/2022 Active Start: 07-03-2022 End: 08-02-2022 take 1 tablet by mouth every 30 days at bedtime as needed ALPRAZolam (XANAX) 0.25 mg tablet Indications: Bipolar disorder, in partial remission, most recent episode depressed (HCC) , Chronic insomnia , ALFREDO (generalized anxiety disorder) Take 1 tablet by mouth at bedtime as needed for up to 30 days. 30 tablet 0 07/03/2022 08/02/2022 Active Comment on above: [facility] as needed for up to 30 days. 24 hr buPROPion hydrochloride 300 mg extended release oral tablet (1 source) Aminoketone Start: 02-18-20 take 1 tablet by mouth once daily in the morning Wellbutrin XL 300 MG tablet XL Take 1 tablet by mouth daily every morning. 02/18/2024 Active cariprazine 1.5 mg oral capsule (1 source) Atypical Antipsychotic Start: 08-07-20 take 1 capsule by mouth once daily Vraylar 1.5 MG capsule capsule Take 1 capsule by mouth daily. 08/07/2024 Active cephalexin 500 mg oral capsule (2 sources) Cephalosporin Antibacterial Start: 01-20-20 End: 01-27-20 24 take 1 capsule by mouth four times daily cephALEXin (KEFLEX) 500 mg capsule Take 1 capsule by mouth four times daily for 7 days. 28 capsule 0 01/20/2024 01/27/2024 Active Comment on above: Take [address] [facility] four times daily for 7 days. doxycycline monohydrate 100 mg oral tablet (1 source) Tetracycline-class Drug Start: 01-22-20 End: 01-29-20 24 take 1 tablet by mouth twice daily doxycycline monohydrate 100 mg tablet Take 1 tablet by mouth two times a day for 7 days. 14 tablet 0 01/22/2024 01/29/2024 Active Comment on above: Take 1 tablet by willian th two times a day for 7 days. naproxen 250 mg oral tablet (1 source) Nonsteroidal Anti-inflammatory Drug Start: 01-08-20 End: 02-08-20 take 1 tablet by mouth once NAPROXEN 250 MG TABS Take 1 tablet by mouth every twelve hours naproxen [id number] Nabil Wang PA-C Completed/Discontinued Medications Medication Drug Class(es) Dates Sig [...] 1 06/07/2022 10/13/2022 Discontinued (Lack of Efficacy) Comment on above: Take 1 tablet by willian th once daily. In the evening. Aspirin (2 sources) Platelet Aggregation Inhibitor, Nonsteroidal Anti-inflammatory Drug aspirin 325 mg capsule one a day aspirin Tracy Minigh atomoxetine 40 mg oral capsule (2 sources) Norepinephrine Reuptake Inhibitor Start: 11-21-2023 atomoxetine (STRATTERA) 40 mg capsule baclofen 10 mg oral tablet (2 sources) gamma-Aminobutyric Acid-ergic Agonist Start: 01-08-2022 take 1 tablet by mouth every eight hours as needed for muscle spasms BACLOFEN 10 MG TABS Take 1 tablet by mouth every eight hours as needed Take as needed for muscle spasm baclofen [id number] Nabil Wang PA-C cholecalciferol 0.125 mg oral capsule (13 sources) Vitamin D Start: 06-16-2022 End: 12-18-2022 take 1 capsule by mouth once daily Cholecalciferol, Vitamin D3, 125 mcg (5,000 unit) cap Indications: Vitamin D deficiency Take 1 capsule by mouth once daily. 90 capsule 3 06/16/2022 12/18/2022 Discontinued (Discontinued by Patient) Comment on above: Take 1 capsule by [facility] once daily. gabapentin 300 mg oral capsule (10 sources) Anti-epileptic Agent Start: 04-27-2023 take 1 capsule by mouth three times daily gabapentin (NEURONTIN) 300 mg capsule Take 1 capsule by mouth three times daily for 30 days. 90 capsule 2 04/27/2023 Active Start: 12-18-2022 End: 04-04-2023 take 1 capsule by mouth three times daily gabapentin (NEURONTIN) 300 mg capsule Take 1 capsule by mouth three times daily for 30 days. 90 capsule 1 03/05/2023 04/04/2023 Active Start: 11-14-2022 End: 12-18-2022 take 1 capsule by mouth three times daily gabapentin (NEURONTIN) 100 mg capsule Take 1 capsule by mouth three times daily for 30 days. 90 capsule 1 11/14/2022 12/18/2022 Discontinued Comment on above: Take 1 capsule by [facility] three times daily for 30 days. ibuprofen 600 mg oral tablet (20 sources) Nonsteroidal Anti-inflammatory Drug Start: 08-23-20 ibuprofen (MOTRIN) 600 mg tablet Indications: Varicose veins of right lower extremity with pain Take one tablet , with food , every 12 hours for 7 days post vein procedure. 14 tablet 0 08/23/2020 Active Comment on above: Take one tablet , wi th food , every 12 hours for 7 days post vein procedure. 24 hr metoprolol succinate 25 mg extended release oral tablet (7 sources) beta-Adrenergic William Start: 09-28-20 End: 12-18-19 23 metoprolol succinate ER (TOPROL XL) 25 mg 24 hr tablet omeprazole 20 mg delayed release oral capsule (6 sources) Proton Pump Inhibitor Start: 01-27-20 take 1 capsule by mouth once daily before breakfast omeprazole (PRILOSEC) 20 mg capsule Take 1 capsule by mouth daily before breakfast. 1/2 hr before meal. 30 capsule 2 01/26/2023 Active Comment on above: Take 1 capsule by [facility] daily before breakfast. 1/2 hr before meal. ondansetron 4 mg oral tablet (2 sources) Serotonin-3 Receptor Antagonist Start: 01-08-20 ONDANSETRON HCL 4 MG TABS Take 1 tablet by mouth every eight hours as needed May take up to 2 tablets as needed. ondansetron hcl [id number] Nabil Wang PA-C QUEtiapine 200 mg oral tablet (15 sources) Atypical Antipsychotic Start: 04-27-20 23 take 1 tablet by mouth once daily at bedtime QUEtiapine (SEROQUEL) 200 mg tablet Take 1 tablet by mouth daily at bedtime. 30 tablet 2 04/27/2023 Active Start: 12-18-2022 End: 04-04-2023 take 1 tablet by mouth once daily at bedtime QUEtiapine (SEROQUEL) 200 mg tablet Take 1 tablet by mouth daily at bedtime. 30 tablet 1 03/05/2023 04/04/2023 Active Start: 11-14-2022 End: 12-18-2022 take 1 tablet by mouth once daily at bedtime QUEtiapine 150 mg tablet Take 1 tablet (150 mg) by mouth daily at bedtime. 30 tablet 1 11/14/2022 12/18/2022 Discontinued (Course of therapy completed) Start: 10-13-2022 End: 11-14-2022 take 1 tablet by mouth once daily at bedtime QUEtiapine (SEROQUEL) 50 mg tablet Take 1 tablet by mouth daily at bedtime. 30 tablet 1 10/13/2022 11/14/2022 Discontinued (Course of therapy completed) Comment on above: Take 1 tablet by willian th daily at bedtime. Take 1 tablet (150 m g) by mouth daily at bedtime. traMADol hydrochloride 50 mg oral tablet (1 source) Opioid Agonist Start: 2 take 1 tablet by mouth every six hours as needed for pain TRAMADOL HCL 50 MG TABS Take 1 tablet by mouth every six hours as needed for pain Take with food. Take lowest effective dose. Do not take any other narcotic or sedative drugs without consulting a provider while on this medication. Max dose 400mg in patients 65y/o: start by using 25mg then taper up to 50mg, max dose 300mg for >65y/o tramadol [id number] Andry Rivera MD traZODone hydrochloride 100 mg oral tablet (20 sources) Serotonin Reuptake Inhibitor Start: End: 2 take 1 tablet by mouth once daily at bedtime traZODone (DESYREL) 100 mg tablet Take 1 tablet by mouth daily at bedtime. 30 tablet 0 10/13/2022 11/14/2022 Discontinued (Lack of Efficacy) Start: 10-27-2021 End: 06-07-2022 take 1 tablet by mouth once daily at bedtime for diabetes mellitus traZODone (DESYREL) 100 mg tablet Indications: Bipolar disorder, in partial remission, most recent episode depressed (HCC) , Chronic insomnia , Screening for diabetes mellitus Take 1 tablet by mouth daily at bedtime. 30 tablet 0 06/07/2022 Active Comment on above: Take 1 tablet by willian th daily at bedtime. zolpidem tartrate 5 mg oral tablet (10 sources) gamma-Aminobutyric Acid-ergic Agonist Start: 06-07-2022 End: 10-13-2022 take 1 tablet by mouth every 30 days at bedtime as needed zolpidem (AMBIEN) 5 mg tablet Indications: Chronic insomnia Take 1 tablet by mouth at bedtime as needed for sedation for up to 30 days. 30 tablet 1 06/07/2022 10/13/2022 Discontinued (Other) Comment on above: Take 1 tablet by willian th at bedtime as needed for sedation for up to 30 days. Problems Active Problems Problem Classification Problem Date Documented Da te Episodic/Chronic Allergic reactions (1 source) Allergy status to other antibiotic agents status; Translations: [Allergy status to other antibiotic agents] Onset: 04-23-2024 Episodic Anxiety disorders (4 sources) Agoraphobia; Translations: [Agoraphobia, unspecified] Chronic Complications of surgical procedures or medical care (1 source) Postoperative wound infection; Translations: [Infection following a procedure, other surgical site, initial encounter] 01-20-2024 Episodic Genitourinary symptoms and ill-defined conditions (1 source) Increased frequency of urination; Translations: [Frequency of micturition] Episodic Joint disorders and dislocations; trauma-related (2 sources) Other articular cartilage disorders, right hip; Translations: [Articular cartilage disorder, pelvic region and thigh] Onset: 12-10-2020 12-10-2020 Chronic Menstrual disorders (1 source) Excessive and frequent menstruation with regular cycle; Translations: [Excessive and frequent menstruation with regular cycle] Onset: 09-18-2024 Chronic Miscellaneous mental health disorders (20 sources) Chronic insomnia; Translations: [Psychophysiologic insomnia] Onset: 09-10-2019 09-10-2019 Chronic Mood disorders (20 sources) Bipolar disorder, most recent episode depression; Translations: [Bipolar disorder, in partial remission, most recent episode depressed] Onset: 09-24-2020 09-24-2020 Chronic Nausea and vomiting (1 source) Vomiting, unspecified; Translations: [Vomiting, unspecified] Onset: 04-23-2024 Episodic Nonspecific chest pain (5 sources) Chest pain, unspecified; Translations: [Precordial pain] Onset: 04-23-2024 Episodic Nutritional deficiencies (2 sources) Vitamin D deficiency; Translations: [Vitamin D deficiency, unspecified] Onset: 02-08-2023 Chronic Other circulatory disease (3 sources) Sensation of foreign body in throat; Translations: [Other specified symptoms and signs involving the circulatory and respiratory systems] Episodic Other connective tissue disease (1 source) Muscle pain; Translations: [Myalgia, unspecified site] Episodic Other gastrointestinal disorders (2 sources) Dysphagia; Translations: [Dysphagia, unspecified] Episodic Other lower respiratory disease (2 sources) Multiple nodules of lung; Translations: [Other nonspecific abnormal finding of lung field] Episodic Other lower respiratory disease (3 sources) Dyspnea; Translations: [Shortness of breath] Onset: 12-15-2024 Episodic Other lower respiratory disease (1 source) Cough; Translations: [Acute cough] Episodic Other non-traumatic joint disorders (1 source) Joint pain; Translations: [Pain in unspecified joint] Episodic Other upper respiratory disease (1 source) Nasal congestion; Translations: [Nasal congestion] Episodic Residual codes; unclassified (2 sources) Tobacco use and exposure - finding; Translations: [Tobacco use] Onset: 12-15-2024 12-15-2024 Episodic Screening and history of mental health and substance abuse codes (4 sources) History of post-traumatic stress disorder; Translations: [Personal history of other mental and behavioral disorders] Episodic Skin and subcutaneous tissue infections (2 sources) Pilonidal abscess of elyssa cleft; Translations: [Pilonidal cyst with abscess] Episodic Spondylosis; intervertebral disc disorders; other back problems (1 source) Spondylosis without myelopathy or radiculopathy, site unspecified; Translations: [Spondylosis without myelopathy or radiculopathy, site unspecified] Onset: 12-20-2024 Chronic Substance-related disorders (2 sources) Nicotine dependence; Translations: [Nicotine dependence, unspecified, uncomplicated] Onset: 12-10-2020 12-10-2020 Chronic Unclassified (20 sources) Abnormal cytology findings; Translations: [ASCUS on Pap smear] Onset: 04-11-2013 11-14-2021 Unclassified (1 source) NO SHOW Unclassified (1 source) Cough, unspecified; Translations: [Cough, unspecified] Onset: 04-17-2025 Viral infection (2 sources) Herpesviral infection of other urogenital tract; Translations: [Herpesviral infection of other urogenital tract] Onset: 09-14-2023 Chronic Past or Other Problems Problem Classification Problem Date Documented Date Episodic/Chronic Cardiac dysrhythmias (4 sources) Palpitations; Translations: [Palpitations] Onset: 12-15-2024 12-15-2024 Episodic Contraceptive and procreative management (2 sources) Encounter for insertion of intrauterine contraceptive device; Translations: [Encounter for contraceptive management, unspecified] Onset: 10-01-2024 Episodic Immunizations and screening for infectious disease (2 sources) Encounter for screening for infections with a predominantly sexual mode of transmission; Translations: [Encounter for screening for infections with a predominantly sexual mode of transmission] Onset: 09-14-2023 Episodic Other connective tissue disease (1 source) Myalgia, unspecified site; Translations: [Myalgia] Onset: 02-08-2023 Episodic Other infections; including parasitic (2 sources) Personal history of other infectious and parasitic diseases; Translations: [Personal history of other infectious and parasitic diseases] Onset: 09-14-2023 Episodic Other non-traumatic joint disorders (2 sources) [...] [Arthralgia, unspecified joint] Onset: 02-08-2023 Episodic Other non-traumatic joint disorders (1 source) Pain in right knee; Translations: [Pain in right knee] Onset: 07-24-2024 Episodic Other screening for suspected conditions (not mental disorders or infectious disease) (14 sources) Patient encounter status; Translations: [Encounter for screening for diabetes mellitus] Onset: 02-08-2023 Episodic Other skin disorders (20 sources) Acne vulgaris; Translations: [Acne vulgaris] Onset: 09-10-2019 09-10-2019 Episodic Other skin disorders (1 source) Localized swelling, mass and lump, right lower limb; Translations: [Localized swelling, mass and lump, right lower limb] Onset: 06-25-2024 Episodic Unclassified (2 sources) Problem Varicose veins of lower extremity (20 sources) Venous varices; Translations: [Asymptomatic varicose veins of unspecified lower extremity] Onset: 03-21-2013 11-14-2021 Episodic Results Test Name Value Interpretation Reference Range Facility Stress Reporton 12-25-2024 Stress Report [facility] [address] [place] [address] MR#: [id number] Acct: [id number] Name: SUSANA MCCLAIN Rep #: [id number] : 1990 34 From: Rambo Tompkins MD Primary Care: Dr. Yasmine Beavers MD Status: REG CLI Referring Dr: Angel Harris MD Sex: F C Stress Test Report Exercise stress test. 34-year-old with a history of chest pain Stress protocol: Resting EKG demonstrates normal sinus rhythm with a rate of 77 bpm resting blood pressure is 112/80 mmHg. The patient exercised according to the regular Ezekiel protocol for a total duration of 7 minutes and 20 seconds attaining a maximum heart rate of 173 bpm which was 92% of maximum predicted heart rate; the maximum workload was 10.1 metabolic equivalents. At rest there were no ST or T wave changes noted to suggest ischemia and at peak exercise upsloping ST changes only were noted which did not meet the criteria for ischemia. No clinical angina was noted the test was terminated due to the target heart rate being achieved/fatigue. The peak blood pressure was 164/70 mmHg. Rate- pressure product was 26,200. Conclusion Stress test with no EKG criteria for ischemia at a high workload 12/25/24 1720 Date Rambo Tompkins MD CC: Dr. Yasmine Beavers MD; Dr. Angel Harris MD Date Dictated: 12/25/241717 Date Transcribed: 12/25/241717 Jazz Singer: CO Signed Normal [facility] Lumbar Spine 2 or 3 Viewson 11-28-2024 Lumbar Spine 2 or 3 Views [facility] [address] [place] [address] Lumbar Spine 2 or 3 Views MR#: [id number] Acct: [id number] Name: SUSANA MCCLAIN Rep #: [id number] : 1990 F 34 From: Flavio peraza MD PCP: Dr. Yasmine Beavers MD Status: REG CLI Study: Lumbar Spine 2 or 3 Views Date of Exam: Exam# [id number] Ordering Dr: Yasmine Beavers MD [id number] STUDY: X-RAY - LUMBAR SPINE REASON FOR EXAM: Female, 34 years old. pain, facet arthropathy TECHNIQUE: 2 view(s) of the lumbar spine were obtained. COMPARISON: 02/15/2021 FINDINGS: Normal lumbar lordosis. There is no substantial scoliosis. There is a normal alignment of the vertebrae. Normal vertebral bodies and endplates. Normal disc space heights. There is no demonstrated fracture. The soft tissue structures are unremarkable. RAD/Lumbar Spine 2 or 3 Views IMPRESSION: Continued normal x-ray examination of the lumbar spine. Electronically Signed: Flavio Pickens MD at 22:59 EST , CC: Dr. Yasmine Beavers MD Jazz Singer: Signed Normal [facility] Mine Deputy Office Visit Reporton 11-07-2024 Mine Deputy Office Visit Report [facility] [address], [address] [place] [address] OFFICE VISIT Date of Service: 11/07/24 MR#: [id number] Acct: [id number] Name: SUSANA MCLCAIN Rep #: [id number] : 1990 Provider: Dr. Tracey willis MD Age/Sex: 34/F Location: [facility] Status: Signed Intake Vital Signs 09/16/24 13:49 10/01/24 15:21 11/07/24 16:02 11/07/24 16:04 Height 5 ft 9 in 5 ft 9 in 5 ft 9 in 5 ft 9 in Weight: 182 lb 189 lb BMI 26.9 27.8 BP 132/76 H 117/80 Intake Visit Reasons: ADENOMYOSIS/SURGICAL CONSULT Rug Designer Required: No Is patient in pain?: No Feel stressed/tense/nervo us/anxious/difficult y sleeping: not at all Allergies azithromycin (From Zithromax) Allergy (Verified 11/07/24 16:04) Rash amoxicillin Adverse Reaction (Verified 11/07/24 16:04) Vomiting red dye Adverse Reaction (Verified 11/07/24 16:04) Vomiting Medications ???Medication ???Instructions ???Recorded ???Confirmed ???Type bupropion HCl 300 mg 24 hr tablet, 300 mg PO QAM 09/16/24 11/07/24 History extended release (Wellbutrin XL) cariprazine 3 mg capsule (Vraylar) 3 mg PO QDAY 09/16/24 11/07/24 History Is last menstrual period known: Yes Last Menstrual Period: 10/30/24 Post menopausal: No Patient : No : No PFSH Medical History History of echocardiogram Wears glasses Anxiety Marijuana use Chronic cough Smoker History of edema Cardiology follow-up encounter History of irregular heartbeat Suicide attempt Anemia ADHD Alcohol use disorder, mild, in early remission PTSD (post-traumatic stress disorder) Generalized anxiety disorder Bipolar disorder, unspecified Alcohol abuse Tobacco use Anxiety and depression History of multiple pulmonary nodules Palpitations Varicosities of leg History of meningitis Genital herpes ASCUS with positive high risk HPV Surgical History History of hip surgery History of tubal ligation History of arthroscopic knee surgery History of varicose vein stripping Family History Mother Anxiety and depression Bipolar disorder Polysubstance abuse Other Arthritis Cancer Heart disease Myocardial infarction Social History household members: spouse and family Smoking Status: Current every day smoker tobacco type: cigars quit status: has quit before alcohol intake: current alcohol intake frequency: 3 or more drinks per day Alcohol type: beer details: 4-6, 12 ounce beers daily since age 18. substance use type: marijuana caffeine: Yes Type: carbonated beverages Number of servings: 2, coffee and tea what type of physical activity do you participate in: none seatbelt use: sometimes do you feel safe at home: Yes additional social history: - Ray HPI ADENOMYOSIS/SURGICAL CONSULT Details: SUSANA MCCLAIN is a 34 year old who presents for fu after attempted IUD insertion- she had cervical stenosis and this was unable to be done. she is having pelvic pain, dyspareunia, co heavy bleeding. she has gone through hormonal tapering with OCP for heavy bleeding to try and help but she still has issue sand then is having progressive pain for the last 4-5 months that interferes with quality of life. She had an ultrasound that shows two small fibroids and questionable adenomyosis. declines further attempt at uterine sampling or iud insertion. Female Reproductive History Last Menstrual Period: 10/30/24 History 3 Elective abortions Hx Para 3 Spontaneous abortions Hx # Term Pregnancies Ectopic pregnancies Hx # Pregnancies Multiple births # of living children Past Pregnancies Del. Date Name GA/Weeks Outcome Route Bth Weight Gen Labor Lgth Anesthesia Del Locatn Provider FOB Unknown Grace Unknown Alycia Unknown Chun ROS Const Constitutional: Denies fatigue, fever(s), headache(s), increased appetite, poor appetite, weight gain or weight loss Cardio Card: Denies chest pain Resp Resp: Denies cough or dyspnea GI GI: Reports as per HPI and constipation; Denies abdominal pain, nausea or vomiting : Reports as per HPI and urinary frequency; Denies difficulty voiding, dysuria, nipple discharge, urinary incontinence, urinary hesitancy, urinary urgency, vaginal discharge, vaginal dryness, vaginal odor or vaginal pruritus Skin Skin/Breast: Denies change in hair, breast mass, breast pain, breast skin changes or nipple discharge Exam Const General: cooperative, healthy appearing, comfortable, no acute distress and well developed Nutritional Appearance: average body habitus Orien (more content not included)... Normal [facility] CBC W/Diff, Automatedon 12-0 Absolute Neut Normal 2.0-7.7 [facility] Comment on above: Order Comment: Order Date: 10/21/24 Order Info: 0184- - CBCD Result Comment: ALRE STUART DID Performed By: #### L 506.0400, L501.9520, L500.4050, L100.0100, L501.5200 #### [facility] [address] [place], [address] HCT Normal 37-47 [facility] Comment on above: Order Comment: Order Date: 10/21/24 Order Info: 0184- - CBCD Result Comment: ALRE STUART DID Performed By: #### L 506.0400, L501.9520, L500.4050, L100.0100, L501.5200 #### [facility] [address] [place], [address] HGB Normal 12.0-15.0 [facility] Comment on above: Order Comment: Order Date: 10/21/24 Order Info: 018- - CBCD Result Comment: ALRE STUART DID Performed By: #### L 506.0400, L501.9520, L500.4050, L100.0100, L501.5200 #### [facility] [address] [place], [address] MCH Normal 27.0-32.0 [facility] Comment on above: Order Comment: Order Date: 10/21/24 Order Info: 0184- - CBCD Result Comment: ALRE STUART DID Performed By: #### L 506.0400, L501.9520, L500.4050, L100.0100, L501.5200 #### [facility] [address] [place], [address] MCHC Normal 32-36 [facility] Comment on above: Order Comment: Order Date: 10/21/24 Order Info: 018- - CBCD Result Comment: ALRE STUART DID Performed By: #### L 506.0400, L501.9520, L500.4050, L100.0100, L501.5200 #### [facility] [address] [place], [address] MCV Normal 81-99 [facility] Comment on above: Order Comment: Order Date: 10/21/24 Order Info: 0184- - CBCD Result Comment: ALRE STUART DID Performed By: #### L 506.0400, L501.9520, L500.4050, L100.0100, L501.5200 #### [facility] [address] [place], [address] NEUT% Normal 47-70 [facility] Comment on above: Order Comment: Order Date: 10/21/24 Order Info: 0184- - CBCD Result Comment: ALRE STUART DID Performed By: #### L 506.0400, L501.9520, L500.4050, L100.0100, L501.5200 #### [facility] [address] [place], [address] PLT Normal 150-450 [facility] Comment on above: Order Comment: Order Date: 10/21/24 Order Info: 0184-1 - CBCD Result Comment: ALRE STUART DID Performed By: #### L 506.0400, L501.9520, L500.4050, L100.0100, L501.5200 #### [facility] [address] [place], [address] RBC Normal 4.2-5.4 [facility] Comment on above: Order Comment: Order Date: 10/21/24 Order Info: 0184- - CBCD Result Comment: ALRE STUART DID Performed By: #### L 506.0400, L501.9520, L500.4050, L100.0100, L501.5200 #### [facility] [address] [place], [address] RDW CV Normal 11.6-14.6 [facility] Comment on above: Order Comment: Order Date: 10/21/24 Order Info: 018- - CBCD Result Comment: ALRE STUART DID Performed By: #### L 506.0400, L501.9520, L500.4050, L100.0100, L501.5200 #### [facility] [address] [place], [address] RDW SD Normal 35.1-43.9 [facility] Comment on above: Order Comment: Order Date: 10/21/24 Order Info: 0184- - CBCD Result Comment: ALRE STUART DID Performed By: #### L 506.0400, L501.9520, L500.4050, L100.0100, L501.5200 #### [facility] [address] [place], [address] WBC Normal 4.4-11.0 [facility] Comment on above: Order Comment: Order Date: 10/21/24 Order Info: 0184- - CBCD Result Comment: ALRE STUART DID Performed By: #### L 506.0400, L501.9520, L500.4050, L100.0100, L501.5200 #### [facility] [address] [place], [address] Comprehensive Metabolic Prof il 10-21-2024 Albumin [Mass/Vol] 3.8 g/dL Normal 3.2-5.0 [facility] Comment on above: Order Comment: Order Date: 10/21/24 Order Info: 0786-1 - CMP Order Info: [id number] - MG Order Info: 3016-3 - TSH Order Info: 3024-7 - T4F Performed By: #### L 506.0400, L501.9520, L500.4050, L100.0100, L501.5200 #### [facility] [address] [place], [address] Albumin/Globulin [Mass ratio] 1.0 {ratio} Normal 0.9-2.4 [facility] Comment on above: Order Comment: Order Date: 10/21/24 Order Info: 0786-1 - CMP Order Info: 60228-0 - MG Order Info: 3016-3 - TSH Order Info: 3024-7 - T4F Performed By: #### L 506.0400, L501.9520, L500.4050, L100.0100, L501.5200 #### [facility] [address] [place], [address] ALK P 45 U/L Normal 45-117 [facility] Comment on above: Order Comment: Order Date: 10/21/24 Order Info: 0786-1 - CMP Order Info: 33608-8 - MG Order Info: 3016-3 - TSH Order Info: 3024-7 - T4F Performed By: #### L 506.0400, L501.9520, L500.4050, L100.0100, L501.5200 #### [facility] [address] [place], [address] ALT [Catalytic activity/Vol] 23 U/L Normal 13-56 [facility] Comment on above: Order Comment: Order Date: 10/21/24 Order Info: 0786-1 - CMP Order Info: 92996-8 - MG Order Info: 3016-3 - TSH Order Info: 3024-7 - T4F Performed By: #### L 506.0400, L501.9520, L500.4050, L100.0100, L501.5200 #### [facility] [address] [place], [address] AST [Catalytic activity/Vol] 15 U/L Normal 15-37 [facility] Comment on above: Order Comment: Order Date: 10/21/24 Order Info: 0786-1 - CMP Order Info: 17622-0 - MG Order Info: 3016-3 - TSH Order Info: 3024-7 - T4F Performed By: #### L 506.0400, L501.9520, L500.4050, L100.0100, L501.5200 #### [facility] [address] [place], [address] Bilirubin [Mass/Vol] 0.30 mg/dL Normal 0.20-1.00 [facility] Comment on above: Order Comment: Order Date: 10/21/24 Order Info: 86-1 - CMP Order Info: 04319-5 - MG Order Info: 3016-3 - TSH Order Info: 3024-7 - T4F Result Comment: For patients on eltrombopag therapy, use of Dimension [place] TBIL is not recommended. Performed By: #### L 506.0400, L501.9520, L500.4050, L100.0100, L501.5200 #### [facility] [address] [place], [address] BUN/CRE 6.9 RATIO Low 10-20 [facility] Comment on above: Order Comment: Order Date: 10/21/24 Order Info: 0786-1 - CMP Order Info: 94256-3 - MG Order Info: 3016-3 - TSH Order Info: 3024-7 - T4F Performed By: #### L 506.0400, L501.9520, L500.4050, L100.0100, L501.5200 #### [facility] [address] [place], [address] CA,Total 8.6 mg/dL Normal 8.5-10.1 [facility] Comment on above: Order Comment: Order Date: 10/21/24 Order Info: 0786-1 - CMP Order Info: 97198-2 - MG Order Info: 3016-3 - TSH Order Info: 3024-7 - T4F Performed By: #### L 506.0400, L501.9520, L500.4050, L100.0100, L501.5200 #### [facility] [address] [place], [address] Chloride [Moles/Vol] 106 mmol/L Normal 98-107 [facility] Comment on above: Order Comment: Order Date: 10/21/24 Order Info: 785-1 - CMP Order Info: 15019-3 - MG Order Info: 3016-3 - TSH Order Info: 3024-7 - T4F Performed By: #### L 506.0400, L501.9520, L500.4050, L100.0100, L501.5200 #### [facility] [address] [place], [address] CO2 [Moles/Vol] 23.0 mmol/L Normal 21.0-32.0 [facility] Comment on above: Order Comment: Order Date: 10/21/24 Order Info: 0786-1 - CMP Order Info: 06981-4 - MG Order Info: 3016-3 - TSH Order Info: 3024-7 - T4F Performed By: #### L 506.0400, L501.9520, L500.4050, L100.0100, L501.5200 #### [facility] [address] [place], [address] Creatinine [Mass/Vol] 0.88 mg/dL Normal 0.55-1.02 [facility] Comment on above: Order Comment: Order Date: 10/21/24 Order Info: 0786-1 - CMP Order Info: 26822-2 - MG Order Info: 3016-3 - TSH Order Info: 3024-7 - T4F Result Comment: The validity of the calculated GFR GFRAA in patients over 70 years has not been determined. Clinical correlation is essential. Performed By: #### L 506.0400, L501.9520, L500.4050, L100.0100, L501.5200 #### [facility] [address] [place], [address] EST GFR - AA 96 mL/min Normal >60 [facility] Comment on above: Order Comment: Order Date: 10/21/24 Order Info: 86-1 - CMP Order Info: 27248-8 - MG Order Info: 3 - TSH Order Info: 3024-05 - T4F Result Comment: Afri can [place]ronesian GFR Calc Performed By: #### L 506.0400, L501.9520, L500.4050, L100.0100, L501.5200 #### [facility] [address] [place], [address] GAP 8 Normal 5-15 [facility] Comment on above: Order Comment: Order Date: 10/21/24 Order Info: 86-1 - CMP Order Info: 90724-5 - MG Order Info: 3016-01 - TSH Order Info: 3024-05 T4F Performed By: #### L 506.0400, L501.9520, L500.4050, L100.0100, L501.5200 #### [facility] [address] [place], [address] GFR/1.73 sq M.predicted among non-blacks MDRD (S/P/Bld) [Vol rate/Area] 79 mL/min/{1.73_m2} Normal >60 [facility] Comment on above: Order Comment: Order Date: 10/21/24 Order Info: 0786-1 - CMP Order Info: 87978-3 - MG Order Info: 3 - TSH Order Info: 7 - T4F Result Comment: Non- GFR Calc Performed By: #### L 506.0400, L501.9520, L500.4050, L100.0100, L501.5200 #### [facility] [address] [place], [address] Globulin (S) [Mass/Vol] 3.8 g/dL Normal 2.2-4.2 [facility] Comment on above: Order Comment: Order Date: 10/21/24 Order Info: 0786-1 - CMP Order Info: 88620-0 - MG Order Info: 3016-3 - TSH Order Info: 302-7 - T4F Performed By: #### L 506.0400, L501.9520, L500.4050, L100.0100, L501.5200 #### [facility] [address] [place], [address] Glucose [Mass/Vol] 111 mg/dL High 74-106 [facility] Comment on above: Order Comment: Order Date: 10/21/24 Order Info: 785-1 - CMP Order Info: 31363-3 - MG Order Info: 3 - TSH Order Info: 3023-7 - T4F Result Comment: Fast ing Glucose result from 100 to 125 mg/dL suggests IMPAIRED HOMEOSTASIS per A.D.A. criteria. Performed By: #### L 506.0400, L501.9520, L500.4050, L100.0100, L501.5200 #### [facility] [address] [place], [address] Potassium [Moles/Vol] 3.6 mmol/L Normal 3.5-5.1 [facility] Comment on above: Order Comment: Order Date: 10/21/24 Order Info: 07-1 - CMP Order Info: 66865-8 - MG Order Info: 3016-3 - TSH Order Info: 3024-7 - T4F Performed By: #### L 506.0400, L501.9520, L500.4050, L100.0100, L501.5200 #### [facility] [address] [place], [address] Sodium [Moles/Vol] 137 mmol/L Normal 136-145 [facility] Comment on above: Order Comment: Order Date: 10/21/24 Order Info: 0786-1 - CMP Order Info: 87938-7 - MG Order Info: 301-3 - TSH Order Info: 3024-7 - T4F Performed By: #### L 506.0400, L501.9520, L500.4050, L100.0100, L501.5200 #### [facility] [address] [place], [address] T PROT 7.6 g/dL Normal 6.4-8.2 [facility] Comment on above: Order Comment: Order Date: 10/21/24 Order Info: 785-1 - CMP Order Info: 05581-5 - MG Order Info: 3015-3 - TSH Order Info: 3024-7 - T4F Performed By: #### L 506.0400, L501.9520, L500.4050, L100.0100, L501.5200 #### [facility] [address] [place], [address] Urea nitrogen [Mass/Vol] 6 mg/dL Low 7-18 [facility] Comment on above: Order Comment: Order Date: 10/21/24 Order Info: 0786-1 - CMP Order Info: 00493-8 - MG Order Info: 301-3 - TSH Order Info: 3024-7 - T4F Performed By: #### L 506.0400, L501.9520, L500.4050, L100.0100, L501.5200 #### [facility] [address] [place], [place], [address] Magnesiumon 10-21-2024 Magnesium [Mass/Vol] 2.3 mg/dL Normal 1.6-2.6 [facility] Comment on above: Order Comment: Order Date: 10/21/24 Order Info: 0786-1 - CMP Order Info: 98919-4 - MG Order Info: 3016-3 - TSH Order Info: 3024-7 - T4F Performed By: #### L 506.0400, L501.9520, L500.4050, L100.0100, L501.5200 #### [facility] [address] [place], [address] T4 Free Directon 10-21-2024 T4 FREE DIRECT 0.98 ng/dL Normal 0.76-1.46 [facility] Comment on above: Order Comment: Order Date: 10/21/24Order Info: 0786-1 - CMPOrder Info: 08860-9 - MGOrder Info: 3016-3 - TSHOrder Info: 302-7 - T4F Performed By: #### L 506.0400, L501.9520, L500.4050, L100.0100, L501.5200 ####[facility] [address] [place], [address] Thyroid Stim Hormone (TSH)on 10-21-2024 TSH 1.610 uIU/mL Normal 0.358-3.740 [facility] Comment on above: Order Comment: Order Date: 10/21/24 Order Info: 0786-1 - CMP Order Info: 26058-5 - MG Order Info: 3016-3 - TSH Order Info: 302-7 - T4F Performed By: #### L 506.0400, L501.9520, L500.4050, L100.0100, L501.5200 #### [facility] [address] [place], [address] Mine Deputy Office Visit Reporton 10-01-2024 Mine Deputy Office Visit Report [facility]'s [address], [address] [place] [address] OFFICE VISIT Date of Service: 10/01/24 MR#: [id number] Acct: [id number] Name: SUSANA MCCLAIN Rep #: [id number] : 1990 Provider: KODAK paez Age/Sex: 34/F Location: [facility] Status: Signed Intake Vital Signs 09/16/24 13:49 10/01/24 15:21 Height 5 ft 9 in 5 ft 9 in Weight: 182 lb 187 lb BMI 26.9 27.6 BP 132/76 H 124/72 H Intake Visit Reasons: IUD Chief Complaint: IUD insertion Rug Designer Required: No Is patient in pain?: No Allergies azithromycin (From Zithromax) Allergy (Verified 10/01/24 15:32) Rash amoxicillin Adverse Reaction (Verified 10/01/24 15:32) Vomiting red dye Adverse Reaction (Verified 10/01/24 15:32) Vomiting Medications ???Medication ???Instructions ???Recorded ???Confirmed ???Type bupropion HCl 300 mg 24 hr tablet, 300 mg PO QAM 09/16/24 10/01/24 History extended release (Wellbutrin XL) cariprazine 3 mg capsule (Vraylar) 3 mg PO QDAY 09/16/24 10/01/24 History Is last menstrual period known: Yes Last Menstrual Period: 08/30/24 Post menopausal: No Patient : No : No PFSH PFSH Medical History History of echocardiogram Wears glasses Anxiety Marijuana use Chronic cough Smoker History of edema Cardiology follow-up encounter History of irregular heartbeat Suicide attempt Anemia ADHD Alcohol use disorder, mild, in early remission PTSD (post-traumatic stress disorder) Generalized anxiety disorder Bipolar disorder, unspecified Alcohol abuse Tobacco use Anxiety and depression History of multiple pulmonary nodules Palpitations Varicosities of leg History of meningitis Genital herpes ASCUS with positive high risk HPV Surgical History History of hip surgery History of tubal ligation History of arthroscopic knee surgery History of varicose vein stripping Family History Mother Anxiety and depression Bipolar disorder Polysubstance abuse Other Arthritis Cancer Heart disease Myocardial infarction Social History household members: spouse and family Smoking Status: Current every day smoker tobacco type: cigars quit status: has quit before alcohol intake: current alcohol intake frequency: 3 or more drinks per day Alcohol type: beer details: 4-6, 12 ounce beers daily since age 18. substance use type: marijuana caffeine: Yes Type: carbonated beverages Number of servings: 2, coffee and tea what type of physical activity do you participate in: none seatbelt use: sometimes do you feel safe at home: Yes additional social history: - Ray History 3 Elective abortions Hx Para 3 Spontaneous abortions Hx # Term Pregnancies Ectopic pregnancies Hx # Pregnancies Multiple births # of living children Past Pregnancies Del. Date Name GA/Weeks Outcome Route Bth Weight Infant Gen Labor Lgth Anesthesia Del Locatn Provider FOB Unknown Grace Unknown Alycia Unknown Chun HPI IUD Details: SUSANA MCCLAIN is a 34 year old who presents for mirena IUD insertion Female Reproductive History Last Menstrual Period: 08/30/24 ROS Const Constitutional: Reports system reviewed and no additional complaints, except as documented Eyes Eyes: Reports system reviewed and no additional complaints, except as documented GI GI: Denies abdominal pain or change in bowel habits : Reports as per HPI Exam Const General: cooperative and no acute distress Orientation: oriented x3 External Female Exam: normal external appearance Speculum Exam - Vagina: normal appearance of the vagina and normal vaginal discharge Speculum Exam - Cervix: normal appearance of the cervix Bimanual Exam- Vagina Uterus: normal bimanual exam and uterine size normal Bimanual Exam- Adnexa, other: normal adnexae, no masses and non-tender Other: Cervix cleansed with betadine, stabilized with tenaculum. Attempt to gradually dilate cervix and unable to proceed past 2-3 cm. Procedure deferred. Results POC Urine Office , Urine Negative Last Edit by Jazmyne Welsh on 10/01/24 15:29 Coding Level of Care Code Off vis,est,level 2 Diagnoses Stenosis, cervix N88.2 Dysmenorrhea N94.6 Abnormal uterine bleeding due to adenomyosis N93.9; N80.03 Assessment and Plan Assessment and Plan (1) Stenosis, cervix: Status: Acute Comment: unable to insert IUD (2) Dysmenorrhea: Status: Acute (3) Abnormal uterine bleeding due to adenomyosis: Status: Acute Comment: plan IUD, (more content not included)... Normal [facility] Mine Deputy Office Visit Reporton 09-16-2024 Mine Deputy Office Visit Report [facility]'s [address] [place] [id number] OFFICE VISIT Date of Service: 09/16/24 MR#: [id number] Acct: [id number] Name: SUSANA MCCLAIN Rep #: [id number] : 1990 Provider: Dr. Tracey willis MD Age/Sex: 34/F Location: [facility] Status: Signed Intake Vital Signs 05/23/24 17:54 09/16/24 13:49 Height 5 ft 9 in 5 ft 9 in Weight: 182 lb BMI 26.9 BP 132/76 H Intake Visit Reasons: UTERINE FIBROID ([place]) Rug Designer Required: No Allergies azithromycin (From Zithromax) Allergy (Verified 09/16/24 13:55) Rash amoxicillin Adverse Reaction (Verified 09/16/24 13:55) Vomiting red dye Adverse Reaction (Verified 09/16/24 13:55) Vomiting Medications ???Medication ???Instructions ???Recorded ???Confirmed ???Type bupropion HCl 300 mg 24 hr tablet, 300 mg PO QAM 09/16/24 09/16/24 History extended release (Wellbutrin XL) cariprazine 3 mg capsule (Vraylar) 3 mg PO QDAY 09/16/24 09/16/24 History Post menopausal: No Patient : No : No PFSH Medical History (Updated 09/16/24 @ 16:[address] Tracey Ryan MD) History of echocardiogram Wears glasses Anxiety Marijuana use Chronic cough Smoker History of edema Cardiology follow-up encounter History of irregular heartbeat Suicide attempt Anemia ADHD Alcohol use disorder, mild, in early remission PTSD (post-traumatic stress disorder) Generalized anxiety disorder Bipolar disorder, unspecified Alcohol abuse Tobacco use Anxiety and depression History of multiple pulmonary nodules Palpitations Varicosities of leg History of meningitis Genital herpes ASCUS with positive high risk HPV Surgical History History of hip surgery History of tubal ligation History of arthroscopic knee surgery History of varicose vein stripping Family History Mother Anxiety and depression Bipolar disorder Polysubstance abuse Other Arthritis Cancer Heart disease Myocardial infarction Social History (Updated 09/16/24 @ 14:00 by Alise Espinoza) household members: spouse and family Smoking Status: Current every day smoker tobacco type: cigars quit status: has quit before alcohol intake: current alcohol intake frequency: 3 or more drinks per day Alcohol type: beer details: 4-6, 12 ounce beers daily since age 18. substance use type: marijuana caffeine: Yes Type: carbonated beverages Number of servings: 2, coffee and tea what type of physical activity do you participate in: none seatbelt use: sometimes do you feel safe at home: Yes additional social history: - Ray HPI UTERINE FIBROID ([place]) Details: SUSANA MCCLAIN is a 34 year old who presents for pelvic pain, dyspareunia, co heavy bleeding. she has gone through hormonal tapering with OCP for ehavy bleeding to try and help but she still has issue sand then is having progressive pain for the last 4-5 months that interferes with quality of life. She had an ultrasound that shows two small fibroids and quesitonable adenomyosis. she is open to tyring an IUD, History 3 Elective abortions Hx Para 3 Spontaneous abortions Hx # Term Pregnancies Ectopic pregnancies Hx # Pregnancies Multiple births # of living children Past Pregnancies Del. Date Name GA/Weeks Outcome Route Bth Weight Gen Labor Lgth [facility]esthesia Del [facility] Provider FOB Unknown Grace Unknown Alycia Unknown Chun ROS Const Constitutional: Denies fatigue, fever(s), headache(s), increased appetite, poor appetite, weight gain or weight loss Cardio Card: Denies chest pain Resp Resp: Denies cough or dyspnea GI GI: Reports as per HPI and constipation; Denies abdominal pain, nausea or vomiting : Reports as per HPI and urinary frequency; Denies difficulty voiding, dysuria, nipple discharge, urinary incontinence, urinary hesitancy, urinary urgency, vaginal discharge, vaginal dryness, vaginal odor or vaginal pruritus Skin Skin/Breast: Denies change in hair, breast mass, breast pain, breast skin changes or nipple discharge Exam Const General: cooperative, healthy appearing, comfortable, no acute distress and well developed Orientation: alert [facility] Head: normal to inspection and normocephalic Ears: hearing grossly normal bilaterally and external ears normal Nose: external nose normal and nares normal Face and sinus: normal facial exam Neck Neck: normal visual inspection, no lymphadenopathy and trachea midline Thyroid: thyroid normal Resp Effort Inspection: normal respiratory effort Musc Other: gross motor intact no deficits, full bilateral strength Skin General: no rashes (more content not included)... Normal [facility] Transvaginal Non-on 08-22-2024 Transvaginal Non- [facility] [address] [place] [address] Transvaginal Non- MR#: [id number] Acct: [id number] Name: SUSANA MCCLAIN Rep #: [id number] : 1990 F 34 From: Jonathan Power DO PCP: Dr. Yasmine Beavers MD Status: [facility] Study: Transvaginal Non- Date of Exam: Exam# [id number] Ordering Dr: Zoe Duran NP HAT MARKER-C [id number] INDICATION: Excessive and frequent menstruation with regular cycle EXAMINATION: Ultrasound US Transvaginal Non-OB TECHNIQUE: Transvaginal (for optimal evaluation of the adnexa) pelvic ultrasound was performed. Grayscale, spectral waveform, and color flow Doppler evaluation of the adnexa. COMPARISON: ____ FINDINGS: UTERUS: Anteverted. The uterus measures 10.1 x 6.1 x 4.4 cm. 10 x 9 x 8 mm right anterior fibroid and 13 x 10 x 8 mm left-sided fibroid. The endometrial stripe measures 10 mm in AP diameter which is within normal limits. Nabothian cysts. RIGHT OVARY: 2.3 x 2.9 x 1.9 cm. Non-enlarged, normal echogenicity. There is normal arterial inflow and venous outflow present in the right ovary. LEFT OVARY: 3.7 x 3.3 x 2.2 cm. Non-enlarged, normal echogenicity. There is normal arterial inflow and venous outflow present in the left ovary. FREE FLUID: None. US/Transvaginal Non- IMPRESSION: Fibroids. Nabothian cysts. Electronically Signed: Jonathanbasil Power DO at 18:39 EDT Reading Location ID and State: [facility] / [place] Tel [phone], Service support , CC: KODAK Duran; Dr. Yasmine Beavers MD Jazz Singer: Signed Normal [facility] Venous Duplex US, Unilateral on 06-11-2024 Venous Duplex US, Unilateral [facility] [address] [place] [address] Venous Duplex US, Unilateral 06/11/24 1516 MR#: [id number] Acct: [id number] Name: SUSANA MCCLAIN Rep #: [id number] : 1990 34 From: Rohit Conteh MD Attending Dr: BHAVIN Cantor Status: REG CLI Ordering Dr: Charmaine Cisneros Date: 06/11/24 Location: CVS Sex: F C Admitted: Reason For Study: SWELLING RIGHT LEFT GSV is normal. CFV is compressible, spontaneous, phasic, CFV is compressible, spontaneous, phasic, competent, and demonstrates normal competent and demonstrates normal augmentation. augmentation. FV is compressible, spontaneous, phasic, competent and demonstrates normal augmentation. POP V is compressible, spontaneous, phasic, competent and demonstrates normal augmentation. T/P Trunk is compressible. PTV is compressible. RT PerV is compressible. Procedure This is a venous duplex using B-mode, color flow and spectral Doppler. Exam performed in department. The exam was diagnostic. A preliminary report was called and/or faxed to [facility]. VL/Venous Duplex US, Unilateral Interpretation Summary Deep veins of the right lower extremity are patent and compressible segmentally. There is no evidence of right lower extremity deep vein thrombosis. The right great saphenous vein appears patent and compressible segmentally. Ordering Physician: Charmaine Cisneros Referring Physician: Charmaine Cisneros Performed By: ADM 06/11/24 1613 Date Rohit Conteh MD CC: Dr. Yasmine Beavers MD; BHAVIN Cantor Date Dictated: 06/11/24 1516 Date Transcribed: 06/11/241612 Jazz Singer: Signed Normal [facility] Chest PA and Lateralon 05-23 Chest PA and Lateral [facility] Imaging Services [address] [place], [place] [address] [address] Chest PA and Lateral MR#: [id number] Acct: [id number] Name: SUSANA MCCLAIN Rep #: [id number] : 1990 F 34 From: Alvin Bone MD PCP: Dr. Yasmine Beavers MD Status: PRE ER Study: Chest PA and Lateral Date of Exam: 05/23/24 Exam# [id number] Ordering Dr: Joanna Castellano [id number] STUDY: X-RAY CHEST REASON FOR EXAM: Female, 34 years old. cough TECHNIQUE: PA and lateral COMPARISON: September 12, 2023 FINDINGS: The lungs are clear and expanded. There is no demonstrated pleural abnormality. Normal size heart. Normal mediastinum and kiki. Normal visualized pulmonary arteries. Normal visualized aortic arch and descending thoracic aorta. Normal visualized thoracic spine. Normal visualized ribs, clavicles, and shoulders. There is no demonstrated abnormality of the visualized soft tissue structures of the upper abdomen. RAD/Chest PA and Lateral IMPRESSION: Normal x-ray examination of the chest. Electronically Signed: Alvin Bone MD at 18:35 EDT Reading Location ID and State: [facility] / [place] Tel , Service support , CC: Dr. Yasmine Beavers MD; BHAVIN Reddy Jazz Singer: Signed Normal [facility] Emergency Department Summary on 05-23-2024 Emergency Department Summary [facility] Medical Records Department [address] [place] [address] Emergency Department Summary 05/23/24 MR#: [id number] Acct: [id number] Name: SUSANA MCCLAIN Rep #: [id number] : 1990 34 From: Joanna DELCID PCP: Dr. Yasmine Beavers MD Status:DEP ER Location: ED HPI History of Present Illness Chief Complaint: Cough Narrative Narrative: 34-year-old female states she has a chronic smoker's cough and a few hours ago while coughing had phlegm with a small amount of bright red streaking that then lightened to pink. 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 She denies shortness of breath. She states she has had a few episodes while there is no symptoms normal chest pain lasted 15 minutes respiratory or cardiac in bed the other night but has not noted it since and when she is active at work she has no chest pain. No fever or chills. [facility] Medical History ADHD Alcohol abuse Alcohol use disorder, mild, in early remission Anemia Anxiety Anxiety and depression ASCUS with positive high risk HPV Bipolar disorder, unspecified Cardiology follow-up encounter Chronic cough Contact with and (suspected) exposure to other viral communicable diseases Generalized anxiety disorder Genital herpes History of echocardiogram History of edema History of irregular heartbeat History of meningitis History of multiple pulmonary nodules Marijuana use Palpitations PTSD (post-traumatic stress disorder) Smoker Suicide attempt Tobacco use URI (upper respiratory infection) Varicosities of leg Wears glasses Home Medications ???Medication ???Instructions ???Recorded ???Last Taken ???Type quetiapine 200 mg tablet (Seroquel) 100 mg PO DAILY MOOD STABILIZATION 03/09/23 12/30/23 History ibuprofen 600 mg tablet 600 mg PO Q6H PRN PRN pain 3 days 11/02/23 12/24/23 Rx #20 TABLETS cholecalciferol (vitamin D3) 25 25 mcg PO DAILY SUPPLEMENT 11/06/23 12/24/23 History mcg (1,000 unit) capsule Allergy/AdvReac Type Severity Reaction Status Date / Time azithromycin (From Zithromax) Allergy Rash Verified 05/23/24 17:54 amoxicillin AdvReac Vomiting Verified 05/23/24 17:54 red dye AdvReac Vomiting Verified 05/23/24 17:54 Family History Mother Anxiety and depression Bipolar disorder Polysubstance abuse Other Arthritis Cancer Heart disease Myocardial infarction Surgical History History of arthroscopic knee surgery History of hip surgery History of tubal ligation History of varicose vein stripping Social History household members: spouse and family Smoking Status: Current every day smoker tobacco type: cigars quit status: has quit before alcohol intake: current alcohol intake frequency: 3 or more drinks per day Alcohol type: beer details: 4-6, 12 ounce beers daily since age 18. substance use type: marijuana caffeine: Yes Type: carbonated beverages Number of servings: 2, coffee and tea what type of physical activity do you participate in: none ROS ROS ED ROS Narrative Constitutional: Negative for fever, chills, malaise. CVS: Negative for palpitations, syncope. Respiratory: Positive for cough. No shortness of breath. GI: Negative for abdominal pain, nausea, vomiting, hematemesis, melena. EXAM Physical Exam Narrative Exam Narrative: CONST: Patient sitting in no acute distress. EYES: Normal inspection. ENT: Normal inspection, moist mucous membranes. NECK: Normal inspection. RESP: No respiratory distress, CTAB. CVS: Regular rate and rhythm, no murmur, no gallop. SKIN: Color normal, no rash, warm, dry, intact. EXTREMITIES: Normal appearance, no pedal edema. NEURO: Alert and answering questions appropriately. PSYCH: Normal affect. Const Vital Signs: 05/23/24 17:54 05/23/24 18:18 Temperature 97.5 F L Temperature Source Temporal Pulse Rate 91 Respiratory Rate 16 Respiratory Effort Normal Non-Labored Respiratory Depth Normal Respiratory Pattern Normal Blood Pressure 134/85 H Blood Pressure Mean 101 Pulse Ox 99 Oxygen Delivery Method Room Air Room Air Physical Exam Const Vital Signs: 05/23/24 17:54 05/23/24 18:18 Temperature 97.5 F L Temperature Source Temporal Pulse Rate 91 Respiratory Rate 16 Respiratory Effort Normal Non-Labored Respiratory Depth Normal Respiratory Pattern Normal Blood Pressure 134/85 H Blood Pressure Mean 101 Pulse Ox 99 Oxygen Delivery Method Room Air Room Air MDM (more content not included)... Normal [facility] CBC + DIFFon 04-23-2024 Baso # 0.02 x10EE3/UL Normal 0.00 - 0.10 [facility] Comment on above: Performed By: #### 2 02721 #### [facility],[address] [place] [address] Basophils/100 WBC (Bld) 0.2 % Normal 0.0 - 2.0 [facility] Comment on above: Performed By: #### 2 54704 #### [place] [address] CBC + DIFF Normal [facility] Comment on above: Result Comment: CBC- COMPLETE BLOOD COUNT Performed By: #### 2 50397 #### [facility],[address] [place] [address] EO # 0.21 x10EE3/UL Normal 0.00 - 0.50 [facility] Comment on above: Performed By: #### 2 81988 #### [place] [address] Eosinophils/100 WBC (Bld) 2.0 % Normal 0.0 - 7.0 [facility] Comment on above: Performed By: #### 2 78285 #### [facility],[address],[place] [address] Erythrocyte distribution width (RBC) [Ratio] 13.8 % Normal 12.0 - 15.6 [facility] Comment on above: Performed By: #### 2 17935 #### [facility],[address] [place] [address] Hematocrit (Bld) [Volume fraction] 39.7 % Normal 34.0 - 46.0 [facility] Comment on above: Performed By: #### 2 66565 #### [facility],[address] [place] [address] Hemoglobin (Bld) [Mass/Vol] 13.4 g/dL Normal 12.0 - 16.0 [facility] Comment on above: Performed By: #### 2 49611 #### [facility],[address] [place] [address] Lymph # 1.83 x10EE3/UL Normal 0.80 - 2.80 [facility] Comment on above: Performed By: #### 2 60975 #### [facility],[address] [place], [place] [id number] Lymphocytes/100 WBC (Bld) 16.9 % Low 20.0 - 45.0 [facility] Comment on above: Performed By: #### 2 50910 #### [facility],[address] [place], [place] [id number] MANUAL DIFF N/A Normal [facility] Comment on above: Performed By: #### 2 68277 #### [facility],[address] [place], [place] [id number] MCH (RBC) [Entitic mass] 29 pg Normal 27 - 33 [facility] Comment on above: Performed By: #### 2 51480 #### [facility],[address] [place], [place] [id number] MCHC 34 X10 3 Normal 32 - 36 [facility] Comment on above: Performed By: #### 2 46757 #### [facility],[address] [place], [place] [phone] MCV (RBC) [Entitic vol] 87 fL Normal 80 - 99 [facility] Comment on above: Performed By: #### 2 06850 #### [facility],[address] [place] [address] Haines # 0.69 x10EE3/UL Normal 0.20 - 1.00 [facility] Comment on above: Performed By: #### 2 63583 #### [facility],[address] [place] [address] MONOS % 6.4 % Normal 0.0 - 10.0 [facility] Comment on above: Performed By: #### 2 42092 #### [facility],[address] [place] [address] Morphology Juarez (Bld) [Interp] N/A Normal [facility] Comment on above: Performed By: #### 2 70075 #### [facility],[address] [place] [address] Neut # 8.04 x10EE3/UL High 1.50 - 7.10 [facility] Comment on above: Performed By: #### 2 21105 #### [place] [address] Neutrophils/100 WBC (Bld) 74.6 % Normal 46.0 - 76.0 [facility] Comment on above: Performed By: #### 2 69872 #### [facility],[address] [place] [address] PLATELET 260 x10EE3/UL Normal 150 - 450 [facility] Comment on above: Performed By: #### 2 88252 #### [place] [address] Platelet mean volume (Bld) [Entitic vol] 7.8 fL Normal 6.6 - 10.5 [facility] Comment on above: Result Comment: AUTO MATED DIFFERENTIAL Performed By: #### 2 77322 #### [place] [address],[place] [address] RBC 4.59 x 10EE6/UL Normal 4.10 - 5.30 [facility] Comment on above: Performed By: #### 2 92311 #### [facility],[address] [place] [address] WBC 10.8 x 10EE3/UL Normal 4.5 - 10.8 [facility] Comment on above: Performed By: #### 2 40906 #### [facility],[address] [place] [address] CHEST 1 VIEWon 04-23-2024 CHEST 1 VIEW [place] [address] Patient: SUSANA MCCLAIN Phone#: : 1990 Age: 34 Gender: F Pt. Type: ER Account: [id number] Location: [facility] Ordering: DR. DIANE MANRIQUEZ Exam Date: 04/23/2024/11:04 Family Phys: Charge Code: 265947 Physician: [place] Order #: [id number] Dose#: PROCEDURE: X-RAY CHEST 1 VIEW COMPARISON: None. INDICATIONS: Chest pain. FINDINGS: LUNGS: Normal. No significant pulmonary parenchymal abnormalities. VASCULATURE: Normal. Unremarkable pulmonary vasculature. CARDIAC: Normal. No cardiac silhouette abnormality or cardiomegaly. MEDIASTINUM: Normal. No visible mass or adenopathy. PLEURA: Normal. No effusion or pleural thickening. BONES: Normal. No fracture or visible bony lesion. OTHER: Monitoring leads project across the thorax. CONCLUSION: No acute disease. Dictated by: Emily Miles MD on 04/23/2024 at 11:20 Approved by: Emily Miles MD on 04/23/2024 at 11:22 Normal [facility] CMP with eGFRon 04-23-2024 AGE 34 years Normal [facility] Comment on above: Performed By: #### 2 05965 #### [facility],[address] [place] [address]91 Albumin [Mass/Vol] 3.7 g/dL Normal 3.4 - 5.0 [facility] Comment on above: Performed By: #### 2 81775 #### [facility],[address] [place] [address] Albumin/Globulin [Mass ratio] 1.1 {ratio} Normal 0.9 - 1.6 [facility] Comment on above: Performed By: #### 2 83136 #### [facility],[address] [place] [address] ALK PHOS 47 U/L Normal 46 - 116 [facility] Comment on above: Performed By: #### 2 31862 #### [facility],[address] [place] [address] 91100 ALT [Catalytic activity/Vol] 17 U/L Normal 16 - 63 [facility] Comment on above: Performed By: #### 2 27028 #### [facility],[address] [place] [address]778 Anion gap [Moles/Vol] 11 mmol/L Normal 10 - 20 [facility] Comment on above: Performed By: #### 2 54670 #### [facility],[address] [place] [address]00 AST [Catalytic activity/Vol] 15 U/L Normal 13 - 39 [facility] Comment on above: Performed By: #### 2 66304 #### [facility],[address] [place] [address]196 B/C RATIO 7 ratio Normal 0 - 30 [facility] Comment on above: Performed By: #### 2 49922 #### [facility],[address] [place] [address] Bilirubin [Mass/Vol] 0.4 mg/dL Normal 0.2 - 1.0 [facility] Comment on above: Performed By: #### 2 54030 #### [facility],[address] [place] [address]493 Calcium [Mass/Vol] 8.9 mg/dL Normal 8.5 - 10.1 [facility] Comment on above: Performed By: #### 2 90176 #### [facility],[address] [place] [address] 46400 Chloride [Moles/Vol] 103 mmol/L Normal 98 - 107 [facility] Comment on above: Performed By: #### 2 83934 #### [facility],[address] [place] [address]607 CMP with eGFR Normal [facility] Comment on above: Result Comment: COMP REHENSIVE METABOLIC PANEL Performed By: #### 2 22110 #### [facility],[address] [place] [address]3933 CO2 [Moles/Vol] 25.7 mmol/L Normal 21.0 - 32.0 [facility] Comment on above: Performed By: #### 2 64496 #### [facility],[address] [place] [address]70 Creatinine [Mass/Vol] 0.89 mg/dL Normal 0.55 - 1.02 [facility] Comment on above: Performed By: #### 2 47356 #### [facility],[address] [place] [address]871 GFR/1.73 sq M.predicted among non-blacks MDRD (S/P/Bld) [Vol rate/Area] mL/min/{1.73_m2} Normal 60 - 999 [facility] Comment on above: Performed By: #### 2 50738 #### [facility],[address] [place] [address] Result Comment: ACCO RDING TO THE NATIONAL KIDNEY DISEASE EDUCATION PROGRAM(NKDE), A NORMAL eGFR IS A VALUE GREATER THAN OR EQUAL TO 60 ML/MIN/1.73 SQ METERS. CHRONIC KIDNEY DISEASE: <60mL/MIN/1.73 SQ METERS KIDNEY FAILURE: <15mL/MIN/1.73 SQ METERS THIS TEST SHOULD ONLY BE USED FOR PATIENTS 18 YEARS OF AGE AND OLDER. Globulin (S) [Mass/Vol] 3.4 g/dL Normal 1.5 - 3.8 [facility] Comment on above: Performed By: #### 2 08595 #### [facility],[address] [place] [address]230 Glucose [Mass/Vol] 100 mg/dL Normal 74 - 106 [facility] Comment on above: Performed By: #### 2 29204 #### [facility],[address] [place] [address] Potassium [Moles/Vol] 3.8 mmol/L Normal 3.5 - 5.1 [facility] Comment on above: Performed By: #### 2 44523 #### [facility],[address] [place] [address] 35960 Protein [Mass/Vol] 7.1 g/dL Normal 6.4 - 8.2 [facility] Comment on above: Performed By: #### 2 59277 #### [facility],[address] [place] [address] 77353 Sodium [Moles/Vol] 136 mmol/L Normal 136 - 145 [facility] Comment on above: Performed By: #### 2 65699 #### [facility],[address] [place] [address] 71206 Urea nitrogen [Mass/Vol] 6 mg/dL Low 7 - 18 [facility] Comment on above: Performed By: #### 2 90506 #### [facility],[address] [place] [address]56 D-DIMER, QUANTITATIVEon 06-0 5-2023 D-DIMER QUANT <200 Normal 0 - 230 [facility] Comment on above: Performed By: #### 2 00358 #### [facility],[address] [place] [address] 26004 D-DIMER, QUANTITATIVE Normal [facility] Comment on above: Result Comment: ZULEMA T D-DIMER Performed By: #### 2 51305 #### [facility],[address] [place] [address]138 TROPONIN I, HIGH SENSITIVITY on 04-23-2024 HS TROPONIN <4.0 Normal 0.0 - 51.4 [facility] Comment on above: Performed By: #### 2 27620 #### [facility],[address] [place] [address]49[address] HS TROPONIN <4.0 Normal 0.0 - 51.4 [facility] Comment on above: Performed By: #### 2 42600 #### [facility],[address] [place] [address] 6[address] CNOVon 01-20-2024 CNOV Office Visit (UCWSTR) LUIZASUSANA D ([id number]) 1990 F Date Time Provider Department 01/20/24 11:45 AM GLORIA BARRERA [facility] During your visit today, we recorded the following information about you: Temperature Pulse Respiration Blood pressure 98.6 degrees 100/minute 21/minute 122/80 Weight 88.4 kg Gloria Barrera PA-C 01/20/2024 12:09 PM Signed This note was created using NoteWriter. Subjective Susanarama Mcclain is a 33 year old female. HPI Presents with a chief complaint of a possible infection in her right alvarez area. She had ACL reconstruction by [facility] on December 31. She states the past 2-3 days the wound below her knee seem to have opened up and she has had some drainage. No fever. Denies history of MRSA. Otherwise has not had increased pain in the knee. She states she has been attending physical therapy. She does have a session tomorrow at her orthopedic office. Review of Systems Constitutional: Negative. HENT: Negative. Musculoskeletal: Right alvarez infection All other systems reviewed and are negative. PAST MEDICAL HISTORY Diagnosis Date ASCUS with positive high risk HPV 10/31/13 Genital herpes Patellofemoral syndrome PMH - PAST MEDICAL HISTORY OF AGE 11 MENEINGITIS depression Varicosities RIGHT LEG AND PERINEAL Current Outpatient Medications Medication Sig Dispense Refill atomoxetine (STRATTERA) 40 mg capsule QUEtiapine (SEROQUEL) 200 mg tablet Take 1 tablet by mouth daily at bedtime. (Patient taking differently: Take 100 mg by mouth daily at bedtime.) 30 tablet 2 ibuprofen (MOTRIN) 600 mg tablet Take one tablet , with food , every 12 hours for 7 days post vein procedure. 14 tablet 0 cephALEXin (KEFLEX) 500 mg capsule Take 1 capsule by mouth four times daily for 7 days. 28 capsule 0 gabapentin (NEURONTIN) 300 mg capsule Take 1 capsule by mouth three times daily for 30 days. 90 capsule 2 omeprazole (PRILOSEC) 20 mg capsule Take 1 capsule by mouth daily before breakfast. 1/2 hr before meal. (Patient not taking: Reported on 01/20/2024) 30 capsule 2 No current facility-administere d medications for this visit. PAST SURGICAL HISTORY Procedure Laterality Date LIG/TRNSXJ FLP TUBE ABDL/VAG APPR UNI/BI PAST SURGICAL HISTORY OF WISDOM TEETH PAST SURGICAL HISTORY OF Right laser treatment for varicose veins VAGINOSCOPY 12/17/13 MARI[place]A 1 FAMILY HISTORY Adopted: Yes Problem Relation Age of Onset Depression Mother Bipolar disorder Mother Alcohol/Drug Mother Hypertension Mother Lipids Mother other (Unknown) Father Asthma Brother Cancer Maternal Uncle LUNG CANCER Cancer Maternal Grandmother Cancer Maternal Grandfather Social History Tobacco Use Smoking status: Every Day Packs/day: 0.50 Years: 1.00 Additional pack years: 0.00 Total pack years: 0.50 Types: Cigarettes Last attempt to quit: 10/19/2008 Years since quittin.2 Smokeless tobacco: Never Tobacco comments: 8 cigars per day-for about 1 month as of 10/14/18-previously smoked cigarettes on AND off until 2007 Substance Use Topics Alcohol use: Yes Comment: occasionally-does not drink on weekly basis Drug use: No Objective BP 122/80 Pulse 100 Temp 37 ?C (98.6 ?F) Resp 21 Wt 88.4 kg (194 lb 12.8 oz) LMP 09/20/2022 SpO2 98% BMI 27.89 kg/m? Physical Exam Vitals reviewed. Constitutional: Appearance: Normal appearance. HENT: Head: Normocephalic and atraumatic. Musculoskeletal: Legs: Comments: Patient does have healing surgical wounds about the anterior right knee. Below the knee on the anterior tibia it does appear 1 of these wounds has open and she does have some drainage. There is no significant surrounding erythema. No lymphangitic streaking. No sign of joint infection . Skin: General: Skin is warm and dry. Neurological: Mental Status: She is alert. Assessment and Plan ASSESSMENT/PLAN: 1. Surgical wound infection - ICD9: 998.59, ICD10: T81.49XA I did obtain a wound culture and will treat with Keflex. Discussed red flags to be seen in the ER otherwise would recommend close follow-up with orthopedic. Patient agreeable with plan. - ABSCESS AND WOUND CULTURE WITH GRAM STAIN Gloria Barrera PA-C Allergies As of Date: 01/20/2024 Noted Allergy Reaction AMOXICILLIN 01/20/2024 11 - Vomiting Z ABDULAZIZ (AZITHROMYCIN) 11/17/2009 2 - Rash Date Reviewed: 01/20/2024 Reviewed by: Kathie Tejada MA - Fully Assessed Reason for Visit: infection [Other] Cmt: Possible infection in surgical site on right alvarez x 1 day Primary Visit Diagnosis:Surgical wound infection [T81.49XA] Order(s):ABSCESS AND WOUND CULTURE WITH GRAM STAIN [SQWCUL] Order #: [id number] FUTURE cephALEXin (KEFLEX) 500 mg capsuleTake 1 capsule by mouth four times daily for 7 days.Disp: 28 capsuleRfl: 0 ABSCESS AND WOUND CULTURE WITH GRAM STAIN [SQWCUL] Order #: (more content not included)... Normal [facility] [employer] Cytology Reporton 2022 [employer] Cytology Report . Pathology Reports Accession: Collected Date/Time: Received Date/Time: Pathologist: [id number] 09/14/2023 14:14 EDT 09/14/2023 18:00 EDT [employer] Cytology Report SPECIMEN: Specimen Description: Liquid Prep w/ HPV Specimen: Cervical Screening or Diagnostic: Screening RELEVANT HISTORY: LMP: 4 weeks ago SPECIMEN ADEQUACY: SATISFACTORY FOR EVALUATION Endocervical/Transfo rmational zone component present INTERPRETATION/RESUL TS: NEGATIVE FOR INTRAEPITHELIAL LESION OR MALIGNANCY HIGH RISK HPV TESTING: Event Code Result HPV Interp See Interp HPVN HPV Interp Text: High Risk HPV Typing: NEGATIVE HPV types 16, 18, 31, 33, 35, 39, 45, 51, 52, 56, 58, 59, 66 and 68 DNA were undetectable or below the pre-set threshold. The wilbur High-Risk HPV DNA Test is not intended for use as a screening device for Pap normal women under age 30 and is not intended to substitute for regular Pap screening. The wilbur High-Risk HPV DNA Test is designed to augment existing methods for the detection of cervical disease and should be used in conjunction with clinical information derived from other diagnostic and screening tests, physical examinations and full medical history in accordance with appropriate patient management procedures. NOTE: A negative result does not preclude the presence of HPV infection because results depend on adequate specimen collection, absence of inhibitors and sufficient DNA to be detected. As of: 09/21/23 13:22 EDT COMMENT: This Pap Test was successfully processed and evaluated with the assistance of the [employer] Test Imaging System. Pathology Reports Accession: Collected Date/Time: Received Date/Time: Pathologist: [id number] 09/14/2023 14:14 EDT 09/14/2023 18:00 EDT Electronically Signed by Pathology report verified by [facility] Screened by: DW Electronically signed by Aida Morales Sign-Out Date: 09/21/2023 13:28 Performing Lab: [facility], [address] [place] [address] Pathology Dept Disclaimer The Pap test is a screening test for cervical cancer. As evidenced by published data, it is subject to both inherent false negative and false positive results. Your patient's results should be interpreted in context with pertinent clinical history including gynecological examination. Normal [facility] ([place] HPVon 09-20-2023 HPV Interp Normal See Interp HPVN [facility] ([place] Comment on above: Order Comment: Order placed by AP_HPV_ORDER rule from [id number] Result Comment: High Risk HPV Typing: NEGATIVE HPV types 16, 18, 31, 33, 35, 39, 45, 51, 52, 56, 58, 59, 66 and 68 DNA were undetectable or below the pre-set threshold. The wilbur High-Risk HPV DNA Test is not intended for use as a screening device for Pap normal women under age 30 and is not intended to substitute for regular Pap screening. The wilbur High-Risk HPV DNA Test is designed to augment existing methods for the detection of cervical disease and should be used in conjunction with clinical information derived from other diagnostic and screening tests, physical examinations and full medical history in accordance with appropriate patient management procedures. NOTE: A negative result does not preclude the presence of HPV infection because results depend on adequate specimen collection, absence of inhibitors and sufficient DNA to be detected. See Interp HPVN Performed By: #### H PV #### [place] [address] HPV Source Cervix Normal [facility] ([place]) Comment on above: Order Comment: Order placed by AP_HPV_ORDER rule from [id number] Performed By: #### H PV #### [place] [address] CTPCRon 09-17-2023 C. trachomatis Interp Normal See CT Interp N [facility] ([place]) Comment on above: Result Comment: C. t rachomatis DNA not detected. Specimen is presumptive negative for C. trachomatis. A negative result does not preclude C. trachomatis infection because results depend on adequate specimen collection, absence of inhibitors, and sufficient DNA to be detected. See CT Interp N Performed By: #### C TPCR, NGPCR1 #### [address] [address] C.trachomatis PCR Negative Normal Negative [facility] ([place]) Comment on above: Result Comment: Mole lisaar (PCR) assay performed on the Babatunde Wilbur 4800 system. Performed By: #### C TPCR, NGPCR1 #### [address] [address] Chlam Source Urine Normal [facility] ([place]) Comment on above: Performed By: #### C TPCR, NGPCR1 #### [address] [address] BEGJO1pm 09-17-2023 GC PCR Source Urine Normal [facility] ([place]) Comment on above: Performed By: #### C TPCR, NGPCR1 #### [facility] [address] [place] [address] N. gonorrhoeae (PCR) Negative Normal Negative [facility] ([place]) Comment on above: Result Comment: Yvonne villalobos (PCR) assay performed on the Babatunde Wilbur 4800 System. Performed By: #### C TPCR, NGPCR1 #### [facility] [address] [place] [address] N. gonorrhoeae Interp Normal See NG Interp N [facility] ([place]) Comment on above: Result Comment: N. g onorrhoeae DNA not detected. Specimen is presumptive negative for N. gonorrhoeae. A negative result does not preclude Neisseria gonorrhoeae infection because results depend on adequate specimen collection, absence of inhibitors, and sufficient DNA to be detected. See NG Interp N Performed By: #### C TPCR, NGPCR1 #### [address] [address] [place] [facility] SUSA[facility] MCCLAIN ([id number]) 1990 F Date Time Provider Department 05/30/23 [facility] During your visit today, we recorded the following information about you: Katia Dickson RN 05/30/2023 1:49 PM Signed Pt phoned stating she just left the ER and is positive for flu B, for the fourth time in 6 months per pt, and COVID. Reports she left with no instructions. Reports she has been sick x3 days with cough, runny nose, congestion, and a mild fever. Reports she is interested in receiving the antiviral if she qualifies. Attempted to schedule virtual visit with [facility] and was denied. Advised pt to visit [facility] for virtual visit to see if she qualifies for antiviral and pt agreeable. Advised pt to treat symptoms with OTC medications, fluids, and rest. Advised pt if symptoms worsen, including chest pain or SOB, to go back to the ER. Allergies As of Date: 05/30/2023 Noted Allergy Reaction Z ABDULAZIZ (AZITHROMYCIN) 11/17/2009 2 - Rash Date Reviewed: 01/26/2023 Reviewed by: Marco Antonio Costa APRN.DIRECTOR OF CLAIMS - Fully Assessed Reason for Visit: Patient Question [1247] Prescriptions as of 05/30/2023 - QUEtiapine (SEROQUEL) 200 mg tablet Take 1 tablet by mouth daily at bedtime. - gabapentin (NEURONTIN) 300 mg capsule Take 1 capsule by mouth three times daily for 30 days. - omeprazole (PRILOSEC) 20 mg capsule Take 1 capsule by mouth daily before breakfast. 1/2 hr before meal. - ibuprofen (MOTRIN) 600 mg tablet Take one tablet , with food , every 12 hours for 7 days post vein procedure. Problem List As Of Date 05/30/2023 Noted Resolved Supervision of other high-risk [O09.8*01/28/2010 03/21/2013 Raised antibody titer [R76.0] 02/04/2010 12/17/2013 DECREASED MOVEMENTS, AFFECTING MANAGEMENT* 0 03/21/2013 History of depression, currently pre*02/27/2013 12/17/2013 Family history of carrier of genetic disease [Z*02/27/2013 12/17/2013 History of herpes genitalis [Z86.19] 02/27/2013 12/17/2013 Patient requested diagnostic testing [Z01.89] 02/27/2013 12/17/2013 Immunization due [Z23] 02/27/2013 12/17/2013 Varicose veins [I83.90] 03/21/2013 ASCUS on Pap smear [[id number]] 04/11/2013 Pain in joint, lower leg [M25.569] 08/31/2014 Unspecified disorder of lower leg joint [M25.9] 08/31/2014 10/14/2018 Varicose veins of leg with pain, 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]09/03/2018 Chronic insomnia [F51.04] 09/10/2019 Acne vulgaris [L70.0] 09/10/2019 Bipolar disorder, in partial remission, most re*09/24/2020 Encounter Status:Closed by DICKSON, M CROW RN on 05/30/23 [facility] 04-26-2023 CNPN Telephone (PSWSTR) SUSANA MCCLAIN ([id number]) 1990 F Date Time Provider Department 04/26/23 ОЛЬГА DENEEN Prisca PSWSTR During your visit today, we recorded the following information about you: Cedrick Clark RN 04/26/2023 12:39 PM Signed Patient calls to ask if provider would refill gabapentin 300 mg and Seroquel 200 mg one more time while she looks for apsychiatrist. Patient is no longer able to see Deneen as her insurance is out of network. Last OV: 11/14/2022 No show: 02/05/2023 Patient is aware Deneen is out of office and message will be forwarded to covering provider. JOE Allred LPN 04/26/2023 1:01 PM Signed Provider out of office and patient no showed last OV in behavioral health. Routed to PCP to address. Rober Saba DO 04/27/2023 8:33 AM Signed Yes, see below Rober Saba DO The following approved medication requests have been transmitted electronically. Requested Prescriptions Signed Prescriptions Disp Refills QUEtiapine (SEROQUEL) 200 mg tablet 30 tablet 2 Sig: Take 1 tablet by mouth daily at bedtime. Authorizing Provider: ROBER SABA gabapentin (NEURONTIN) 300 mg capsule 90 capsule 2 Sig: Take 1 capsule by mouth three times daily for 30 days. Authorizing Provider: ROBER SABA DO Krystle McCullough, RN 04/27/2023 9:18 AM Signed Call placed to patient to notify. Patient verbalizes understanding. Cedrick Clark RN Allergies As of Date: 04/26/2023 Noted Allergy Reaction Z ABDULAZIZ (AZITHROMYCIN) 11/17/2009 2 - Rash Date Reviewed: 01/26/2023 Reviewed by: Marco Antonio Costa APRN.DIRECTOR OF CLAIMS - Fully Assessed Reason for Visit: Patient Question [9227] Order(s):QUEtiapine (SEROQUEL) 200 mg tabletTake 1 tablet by mouth daily at bedtime.Disp: 30 tabletRfl: 2 gabapentin (NEURONTIN) 300 mg capsuleTake 1 capsule by mouth three times daily for 30 days.Disp: 90 capsuleRfl: 2 Prescriptions as of 04/27/2023 - QUEtiapine (SEROQUEL) 200 mg tablet Take 1 tablet by mouth daily at bedtime. - gabapentin (NEURONTIN) 300 mg capsule Take 1 capsule by mouth three times daily for 30 days. - omeprazole (PRILOSEC) 20 mg capsule Take 1 capsule by mouth daily before breakfast. 1/2 hr before meal. - ibuprofen (MOTRIN) 600 mg tablet Take one tablet , with food , every 12 hours for 7 days post vein procedure. Problem List As Of Date 04/26/2023 Noted Resolved Supervision of other high-risk [O09.8*01/28/2010 03/21/2013 Raised antibody titer [R76.0] 02/04/2010 12/17/2013 DECREASED MOVEMENTS, AFFECTING MANAGEMENT* 0 03/21/2013 History of depression, currently pre*02/27/2013 12/17/2013 Family history of carrier of genetic disease [Z*02/27/2013 12/17/2013 History of herpes genitalis [Z86.19] 02/27/2013 12/17/2013 Patient requested diagnostic testing [Z01.89] 02/27/2013 12/17/2013 Immunization due [Z23] 02/27/2013 12/17/2013 Varicose veins [I83.90] 03/21/2013 ASCUS on Pap smear [[id number]] 04/11/2013 Pain in joint, lower leg [M25.569] 08/31/2014 Unspecified disorder of lower leg joint [M25.9] 08/31/2014 10/14/2018 Varicose veins of leg with pain, 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]09/03/2018 Chronic insomnia [F51.04] 09/10/2019 Acne vulgaris [L70.0] 09/10/2019 Bipolar disorder, in partial remission, most re*09/24/2020 Prescriptions ordered this encounter Disp Refills Start End QUETIAPINE 200 MG TABLET 30 t* 2 04/27/2023 05/27/2023 Route: ORAL Sig: Take 1 tablet by mouth daily at bedtime. GABAPENTIN 300 MG CAPSULE 90 c* 2 04/27/2023 05/27/2023 Route: ORAL Sig: Take 1 capsule by mouth three times daily for 30 days. Medications Discontinued During This Encounter Prescriptions - QUEtiapine (SEROQUEL) 200 mg tablet (Discontinued) Take 1 tablet by mouth daily at bedtime. - gabapentin (NEURONTIN) 300 mg capsule (Discontinued) Take 1 capsule by mouth three times daily for 30 days. Encounter Status:Closed by CEDRICK CLARK on 04/27/23 [facility] [place] 02-12-20[facility] SUSANA MCCLAIN ([id number]) 1990 F Date Time Provider Department 02/12/23 DENEEN ROLON PSYCBE During your visit today, we recorded the following information about you: Ayanna Glover LPN 02/12/2023 8:51 AM Signed Please schedule patient for a FU visit with Deneen on a Sunday afternoon. Patient will see visit on my chart. needs financial clearance. Dilia Zamarripa Pss 02/12/2023 12:46 PM Signed Placed referral for [facility]. [facility] [place]. Once cleared patient will be called. Ayanna Glover LPN 02/14/2023 8:12 AM Signed Spoke to patient and given date/time of 03/09/2023 at 2:00 pm virtually. Allergies As of Date: 02/12/2023 Noted Allergy Reaction Z ABDULAZIZ (AZITHROMYCIN) 11/17/2009 2 - Rash Date Reviewed: 01/26/2023 Reviewed by: Marco Antonio Costa APRN.DIRECTOR OF CLAIMS - Fully Assessed Reason for Visit: Appointment [186] Prescriptions as of 03/27/2023 - QUEtiapine (SEROQUEL) 200 mg tablet Take 1 tablet by mouth daily at bedtime. - gabapentin (NEURONTIN) 300 mg capsule Take 1 capsule by mouth three times daily for 30 days. - omeprazole (PRILOSEC) 20 mg capsule Take 1 capsule by mouth daily before breakfast. 1/2 hr before meal. - ibuprofen (MOTRIN) 600 mg tablet Take one tablet , with food , every 12 hours for 7 days post vein procedure. Problem List As Of Date 02/12/2023 Noted Resolved Supervision of other high-risk [O09.8*01/28/2010 03/21/2013 Raised antibody titer [R76.0] 02/04/2010 12/17/2013 DECREASED MOVEMENTS, AFFECTING MANAGEMENT* 0 03/21/2013 History of depression, currently pre*02/27/2013 12/17/2013 Family history of carrier of genetic disease [Z*02/27/2013 12/17/2013 History of herpes genitalis [Z86.19] 02/27/2013 12/17/2013 Patient requested diagnostic testing [Z01.89] 02/27/2013 12/17/2013 Immunization due [Z23] 02/27/2013 12/17/2013 Varicose veins [I83.90] 03/21/2013 ASCUS on Pap smear [[id number]] 04/11/2013 Pain in joint, lower leg [M25.569] 08/31/2014 Unspecified disorder of lower leg joint [M25.9] 08/31/2014 10/14/2018 Varicose veins of leg with pain, 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]09/03/2018 Chronic insomnia [F51.04] 09/10/2019 Acne vulgaris [L70.0] 09/10/2019 Bipolar disorder, in partial remission, most re*09/24/2020 Encounter Status:Closed by [facility]AN[facility] LUIZASUSANA ([id number]) 1990 F Date Time Provider Department 02/09/23 MARCO ANTONIO COSTA During your visit today, we recorded the following information about you: Marco Antonio Costa APRN.EMERSON 02/09/2023 4:32 PM Signed Please let Susana know that I received all her lab results. All of her autoimmune blood work is normal. Her vitamin D level is low. I recommend she begin taking Vitamin D3 5000 international unit(s) daily, this can be found in the vitamin section. No other concerns. Marco Antonio Costa APRN.EMERSON Best RN 02/09/2023 4:38 PM Signed Pt called and is notified of providers results and instructions. Pt voices understanding. Sylvia Best RN Allergies As of Date: 02/09/2023 Noted Allergy Reaction Z ABDULAZIZ (AZITHROMYCIN) 11/17/2009 2 - Rash Date Reviewed: 01/26/2023 Reviewed by: Marco Antonio Costa APRN.EMERSON - Fully Assessed Reason for Visit: Results [95] Prescriptions as of 02/09/2023 - omeprazole (PRILOSEC) 20 mg capsule Take 1 capsule by mouth daily before breakfast. 1/2 hr before meal. - QUEtiapine (SEROQUEL) 200 mg tablet Take 1 tablet by mouth daily at bedtime. - gabapentin (NEURONTIN) 300 mg capsule Take 1 capsule by mouth three times daily for 30 days. - ibuprofen (MOTRIN) 600 mg tablet Take one tablet , with food , every 12 hours for 7 days post vein procedure. Problem List As Of Date 02/09/2023 Noted Resolved Supervision of other high-risk [O09.8*01/28/2010 03/21/2013 Raised antibody titer [R76.0] 02/04/2010 12/17/2013 DECREASED MOVEMENTS, AFFECTING MANAGEMENT* 0 03/21/2013 History of depression, currently pre*02/27/2013 12/17/2013 Family history of carrier of genetic disease [Z*02/27/2013 12/17/2013 History of herpes genitalis [Z86.19] 02/27/2013 12/17/2013 Patient requested diagnostic testing [Z01.89] 02/27/2013 12/17/2013 Immunization due [Z23] 02/27/2013 12/17/2013 Varicose veins [I83.90] 03/21/2013 ASCUS on Pap smear [[id number]] 04/11/2013 Pain in joint, lower leg [M25.569] 08/31/2014 Unspecified disorder of lower leg joint [M25.9] 08/31/2014 10/14/2018 Varicose veins of leg with pain, 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]09/03/2018 Chronic insomnia [F51.04] 09/10/2019 Acne vulgaris [L70.0] 09/10/2019 Bipolar disorder, in partial remission, most re*09/24/2020 Encounter Status:Closed by SYLVIA BEST on 02/09/23 Normal [facility](OH[facility] 25-hydroxyvitamin D3 [Mass/Vol] 21.4 ng/mL Low 31.0-80.0 [facility] Comment on above: Order Comment: Bailee hoffman Type: BLOOD SPECIMEN Ordering Facility: [facility] Address: [address] [place], [place] [address] Result Comment: Clas sification of 25 OH Vitamin D status: Deficiency/Insufficiency: < or = 30 ng/ml. Sufficiency/Optimal Levels: 31-80 ng/mL Toxicity: > 100 ng/mL. Test performed by chemiluminescent immunoassay. Performed By: #### 2 276-4, 3016-3, 21254-1, 1987- #### [facility] CLIA [id number] [address] [facility] [address] [place] CBC panel Auto (Bld)on 02-08 Erythrocyte distribution width (RBC) [Ratio] 14.1 % Normal 11.5-15.0 [facility] Comment on above: Order Comment: Bailee hoffman Type: BLOOD SPECIMEN Ordering Facility: [facility] Address: [address] Performed By: #### 2 276-4, 3016-3, , 1988-03 #### [facility] CLIA [id number] [address] [place] [address] [place] Hematocrit (Bld) [Volume fraction] 43.0 % Normal 36.0-46.0 [facility] Comment on above: Order Comment: Speci men Type: BLOOD SPECIMEN Ordering Facility: [facility] Address: [address] [place], [place] [address] Performed By: #### 2 276-4, 301-3, , 1988-03 #### [facility] CLIA [id number] [address] [place] [address] [place] Hemoglobin (Bld) [Mass/Vol] 14.4 g/dL Normal 11.5-15.5 [facility] Comment on above: Order Comment: Speci men Type: BLOOD SPECIMEN Ordering Facility: [facility] Address: [address] [place], [place] [address] Performed By: #### 2 276-4, 3015-3, , 1988-03 #### [facility] CLIA [id number] [address] [place] [address] [place] MCH (RBC) [Entitic mass] 29.2 pg Normal 26.0-34.0 [facility] Comment on above: Order Comment: Speci men Type: BLOOD SPECIMEN Ordering Facility: [facility] Address: [address] [place] [address] Performed By: #### 2 276-4, 3015-3, , 1988-03 #### [facility] CLIA [id number] [address] [place] [address] [place] MCHC (RBC) [Mass/Vol] 33.5 g/dL Normal 30.5-36.0 [facility] Comment on above: Order Comment: Speci men Type: BLOOD SPECIMEN Ordering Facility: [facility] Address: [address] Performed By: #### 2 276-4, 3015-3, , 1988-03 #### [facility] CLIA [id number] [address] [place] [address] [place] MCV (RBC) [Entitic vol] 87.2 fL Normal 80.0-100.0 [facility] Comment on above: Order Comment: Speci men Type: BLOOD SPECIMEN Ordering Facility: [facility] Address: [address] Performed By: #### 2 276-4, 3015-3, , 1988-03 #### [facility] CLIA [id number] [address] [place] [address] [place] Nucleated RBC (Bld) [#/Vol] 10*3/uL Normal <0.01 [facility] Comment on above: Order Comment: Speci men Type: BLOOD SPECIMEN Ordering Facility: [facility] Address: [address] Performed By: #### 2 276-4, 3015-3, , 1988-03 #### [facility] CLIA [id number] [address] [place] [address] [place] Platelet mean volume (Bld) [Entitic vol] 10.2 fL Normal 9.0-12.7 [facility] Comment on above: Order Comment: Speci men Type: BLOOD SPECIMEN Ordering Facility: [facility] Address: [address] [place] [address] Performed By: #### 2 276-4, 3015-3, , 1988-03 #### [facility] CLIA [id number] [address] [place], [place] [address] [place] Platelets (Bld) [#/Vol] 258 10*3/uL Normal 150-400 [facility] Comment on above: Order Comment: Speci men Type: BLOOD SPECIMEN Ordering Facility: [facility] Address: [address] [place], [place] [address] Performed By: #### 2 276-4, 3015-3, , 1988-03 #### [facility] CLIA [id number] [address] [place] [address] [place] RBC (Bld) [#/Vol] 4.93 10*6/uL Normal 3.90-5.20 [facility] Comment on above: Order Comment: Speci men Type: BLOOD SPECIMEN Ordering Facility: [facility] Address: [address] [place], [place] [address] Performed By: #### 2 276-4, 3015-3, , 1988-03 #### [facility] CLIA [id number] [address] [place] [address] [place] WBC (Bld) [#/Vol] 11.37 10*3/uL High 3.70-11.00 [facility] Comment on above: Order Comment: Speci men Type: BLOOD SPECIMEN Ordering Facility: [facility] Address: [address] [place] [address] Performed By: #### 2 276-4, 3015-3, , 1988-03 #### [facility] CLIA [id number] [address] [place], [place] [address] [place] CRP SerPl-mCncon 02-08-2023 CRP [Mass/Vol] mg/L Normal <0.9 [facility] Comment on above: Order Comment: Speci men Type: BLOOD SPECIMEN Ordering Facility: [facility] Address: [address] [place] [address] Performed By: #### 2 276-4, 3015-3, , 1988-03 #### [facility] CLIA [id number] [address] [place], [place] [address] [place] Centromere Ab IF Ql (S)on Centromere Ab Qn (S) <0.2 Normal <1.0 [facility] Comment on above: Order Comment: Speci men Type: BLOOD SPECIMEN Ordering Facility: [facility] Address: [address] [place] [address] Result Comment: Anti -centromere antibody is used as in aid in diagnosis of systemic sclerosis. Clinical correlation is required. Test Methodology: Multiplex flow immunoassay. Performed By: #### 2 276-4, 3016-3, 36390-0, 1988-03 #### [facility] CLIA [id number] [address] [place] [address] [place] CENTROMERE AB QUAL Negative Normal Negative [facility] Comment on above: Order Comment: Speci men Type: BLOOD SPECIMEN Ordering Facility: [facility] Address: [address] [place] [address] Performed By: #### 2 276-4, 3016-3, 96262-9, 1988-03 #### [facility] CLIA [id number] [address] [place] [address] [place] Chromatin Ab Qnon 02-08-2023 CHROMATIN AB QUAL Negative Normal Negative [facility] Comment on above: Order Comment: Speci men Type: BLOOD SPECIMEN Ordering Facility: [facility] Address: [address] [place] [address] Performed By: #### 2 276-4, 3016-3, 31097-7, 1988-03 #### [facility] CLIA [id number] [address] [place] [address] [place] Chromatin Ab SerPl-aCncon Chromatin Ab Qn <0.2 Normal <1.0 [facility] Comment on above: Order Comment: Speci men Type: BLOOD SPECIMEN Ordering Facility: [facility] Address: [address] [place] [address] Result Comment: Test Methodology: Multiplex flow immunoassay. Performed By: #### 2 276-4, 3016-3, 42929-9, 1988-5 #### [facility] CLIA [id number] [address] [place] [address] [place] Comprehensive metabolic 2000 panelon 02-08-2023 Albumin [Mass/Vol] 4.4 g/dL Normal 3.9-4.9 [facility] Comment on above: Order Comment: Speci men Type: BLOOD SPECIMEN Ordering Facility: [facility] Address: [address] [place] [address] Performed By: #### 2 4323-8, 58849-4, 3024-7, 3053-6 #### [facility] CLIA [id number] [address] [place] [address] [place] ALP [Catalytic activity/Vol] 46 U/L Normal 34-123 [facility] Comment on above: Order Comment: Speci men Type: BLOOD SPECIMEN Ordering Facility: [facility] Address: [address] [place] [address] Performed By: #### 2 4323-8, 48797-0, 3024-7, 3053-6 #### [facility] CLIA [id number] [address] [place] [address] [place] ALT [Catalytic activity/Vol] 23 U/L Normal 7-38 [facility] Comment on above: Order Comment: Speci men Type: BLOOD SPECIMEN Ordering Facility: [facility] Address: [address] [place], [place] [address] Performed By: #### 2 4323-8, 42340-0, 3024-7, 3053-6 #### [facility] CLIA [id number] [address] [place] [address] [place] Anion gap [Moles/Vol] 12 mmol/L Normal 9-18 [facility] Comment on above: Order Comment: Speci men Type: BLOOD SPECIMEN Ordering Facility: [facility] Address: [address] [place], [place] [address] Performed By: #### 2 4323-8, 63974-8, 3024-7, 3053-6 #### [facility] CLIA [id number] [address] [place] [address] [place] AST [Catalytic activity/Vol] 26 U/L Normal 13-35 [facility] Comment on above: Order Comment: Speci men Type: BLOOD SPECIMEN Ordering Facility: [facility] Address: [address] [place] [address] Performed By: #### 2 4323-8, 97700-1, 3024-7, 3053-6 #### [facility] CLIA [id number] [address] [place] [address] [place] Bilirubin [Mass/Vol] 0.4 mg/dL Normal 0.2-1.3 [facility] Comment on above: Order Comment: Speci men Type: BLOOD SPECIMEN Ordering Facility: [facility] Address: [address] [place], [place] [address] Performed By: #### 2 4323-8, 83914-6, 3024-7, 3053-6 #### [facility] CLIA [id number] [address] [place] [address] [place] Calcium [Mass/Vol] 10.2 mg/dL Normal 8.5-10.2 [facility] Comment on above: Order Comment: Speci men Type: BLOOD SPECIMEN Ordering Facility: [facility] Address: [address] [place] [address] Performed By: #### 2 4323-8, 03626-6, 3024-7, 3053-6 #### [facility] CLIA [id number] [address] [place] [address] [place] Chloride [Moles/Vol] 104 mmol/L Normal 97-105 [facility] Comment on above: Order Comment: Speci men Type: BLOOD SPECIMEN Ordering Facility: [facility] Address: [address] [place] [address] Performed By: #### 2 4323-8, 66967-3, 3024-7, 3053-6 #### [facility] CLIA [id number] [address] [place] [address] [place] CO2 [Moles/Vol] 26 mmol/L Normal 22-30 [facility] Comment on above: Order Comment: Speci men Type: BLOOD SPECIMEN Ordering Facility: [facility] Address: [address] [place] [address] Performed By: #### 2 4323-8, 81252-4, 3024-7, 3053-6 #### [facility] IA [id number] [address] [place] [address] [place] Creatinine [Mass/Vol] 0.92 mg/dL Normal 0.58-0.96 [facility] Comment on above: Order Comment: Speci men Type: BLOOD SPECIMEN Ordering Facility: [facility] Address: [address] [place] [address] Performed By: #### 2 4323-8, 09247-3, 3024-7, 3053-6 #### [facility] IA [id number] [address] [place] [address] [place] ESTIMATED GLOMERULAR FILTRATION RATE 86 mL/min/1.73m??? Normal >=60 [facility] Comment on above: Order Comment: Speci men Type: BLOOD SPECIMEN Ordering Facility: [facility] Address: [address] [place] [address] Result Comment: Mitzy mated Glomerular Filtration Rate (eGFR) is calculated using the 2020 CKD-EPI creatinine equation. This equation utilizes serum creatinine, sex, and age as parameters. The creatinine assay has traceable calibration to isotope dilution-mass spectrometry. Refer to KDIGO guidelines for clinical interpretation. In patients with unstable renal function, e.g. those with acute kidney injury, the eGFR may not accurately reflect actual GFR. Performed By: #### 2 4323-8, 68256-5, 3024-7, 3053-6 #### [facility] CLIA [id number] [address] [address] [place] Glucose [Mass/Vol] 95 mg/dL Normal 74-99 [facility] Comment on above: Order Comment: Bailee hoffman Type: BLOOD SPECIMEN Ordering Facility: [facility] Address: [address] [place], [place] [address] Result Comment: The [place] Diabetes Association (ADA) provides guidance for cutoff values for fasting glucose and random glucose. The ADA defines fasting as no caloric intake for at least 8 hours. Fasting plasma glucose results between 100 to 125 mg/dL indicate increased risk for diabetes (prediabetes). Fasting plasma glucose results greater than or equal to 126 mg/dL meet the criteria for diagnosis of diabetes. In the absence of unequivocal hyperglycemia, results should be confirmed by repeat testing. In a patient with classic symptoms of hyperglycemia or hyperglycemic crisis, random plasma glucose results greater than or equal to 200 mg/dL meet the criteria for diagnosis of diabetes. Reference: Standards of Medical Care in Diabetes 2016, [place] Diabetes Association. Diabetes Care. 2016.39(Suppl 1). Performed By: #### 2 4323-8, 37848-4, 3024-7, 3053-6 #### [facility] CLIA [id number] [address] [place] [address] [place] Potassium [Moles/Vol] 4.4 mmol/L Normal 3.7-5.1 [facility] Comment on above: Order Comment: Speci men Type: BLOOD SPECIMEN Ordering Facility: [facility] Address: [address] [place], [place] [address] Performed By: #### 2 4323-8, 06408-3, 3024-7, 3053-6 #### [facility] CLIA [id number] [address] [place] [address] [place] Protein [Mass/Vol] 7.4 g/dL Normal 6.3-8.0 [facility] Comment on above: Order Comment: Speci men Type: BLOOD SPECIMEN Ordering Facility: [facility] Address: [address] [place], [place] [phone] Performed By: #### 2 4323-8, 59799-2, 3024-7, 3053-6 #### [facility] CLIA [id number] [address] [place] [address] [place] Sodium [Moles/Vol] 142 mmol/L Normal 136-144 [facility] Comment on above: Order Comment: Speci men Type: BLOOD SPECIMEN Ordering Facility: [facility] Address: [address] [place] [address] Performed By: #### 2 4323-8, 72414-9, 3024-7, 3053-6 #### [facility] CLIA [id number] [address] [place] [address] [place] Urea nitrogen [Mass/Vol] 11 mg/dL Normal 7-21 [facility] Comment on above: Order Comment: Speci men Type: BLOOD SPECIMEN Ordering Facility: [facility] Address: [address] [place] [address] Performed By: #### 2 4323-8, 45551-0, 3024-7, 3053-6 #### [facility] CLIA [id number] [address] [place] [address] [place] Cyclic citrullinated peptide IgG Qnon 02-08-2023 CCP ANTIBODY IGG QUALITATIVE Negative Normal Negative [facility] Comment on above: Order Comment: Speci men Type: BLOOD SPECIMEN Ordering Facility: [facility] Address: [address] [place] [address] Performed By: #### 2 276-4, 3016-3, 30232-6, 1988-03 #### [facility] CLIA [id number] [address] [place] [address] [place] Jo1 Ab Ser-aCncon 2022 Anel-1 extractable nuclear Ab Qn (S) <0.2 Normal <1.0 [facility] Comment on above: Order Comment: Speci men Type: BLOOD SPECIMEN Ordering Facility: [facility] Address: [address] [place], [place] [address] Performed By: #### 2 276-4, 3015-3, , 1988-03 #### [facility] CLIA [id number] [address] [place] [address] [place] COST CONSULTANT Ab Ser-aCncon 2022 Ribonucleoprotein extractable nuclear Ab Qn (S) <0.2 Normal <1.0 [facility] Comment on above: Order Comment: Speci men Type: BLOOD SPECIMEN Ordering Facility: [facility] Address: [address] [place], [place] [address] Performed By: #### 2 276-4, 3, , 1988-03 #### [facility] CLIA [id number] [address] [place] [address] [place] SM IgG Ser-aCncon 2022 Ramires extractable nuclear IgG Qn (S) <0.2 Normal <1.0 [facility] Comment on above: Order Comment: Speci men Type: BLOOD SPECIMEN Ordering Facility: [facility] Address: [address] [place] [address] Performed By: #### 2 276-4, 3, , 1988-03 #### [facility] CLIA [id number] [address] [place] [address] [place] SS-A Ab Ser-aCncon 02-08 Sjogrens syndrome-A extractable nuclear Ab Qn (S) <0.2 Normal <1.0 [facility] Comment on above: Order Comment: Speci men Type: BLOOD SPECIMEN Ordering Facility: [facility] Address: [address] [place], [place] [address] Result Comment: Test Methodology: Multiplex flow immunoassay. Performed By: #### 2 276-4, 3015-3, , 1988-03 #### [facility] CLIA [id number] [address] [place] [address] [place] SS-B Ab Ser-aCncon 02-08 Sjogrens syndrome-B extractable nuclear Ab Qn (S) <0.2 Normal <1.0 [facility] Comment on above: Order Comment: Speci men Type: BLOOD SPECIMEN Ordering Facility: [facility] Address: [address] [place] [address] Result Comment: Anti -SSB (anti-La) antibody is used as an aid in diagnosis of a variety of systemic autoimmune diseases, especially for Sjogren's syndrome and systemic lupus erythematosus. Clinical correlation is required. Test Methodology: Multiplex flow immunoassay. Performed By: #### 2 276-4, 3016-3, , 1988-03 #### [facility] CLIA [id number] [address] [place] [address] [place] ESR Westergren method (Bld) [Velocity]on 02-08-2023 ESR (Bld) [Velocity] 8 mm/h Normal 0-20 [facility] Comment on above: Order Comment: Speci men Type: BLOOD SPECIMEN Ordering Facility: [facility] Address: [address] [place] [address] Performed By: #### 2 276-4, 3016-3, 05389-3, 1988-03 #### [facility] CLIA [id number] [address] [place] [address] [place] Ferritin SerPl-mCncon 2022 Ferritin [Mass/Vol] 61.1 ng/mL Normal 14.7-205.1 [facility] Comment on above: Order Comment: Speci men Type: BLOOD SPECIMEN Ordering Facility: [facility] Address: [address] [place] [address] Performed By: #### 2 276-4, 3016-3, 66662-8, 1988-03 #### [facility] CLIA [id number] [address] [id number] [address] [place] Iron and Iron binding capaci ty panelon 02-08-2023 Iron [Mass/Vol] 99 ug/dL Normal 41-186 [facility] Comment on above: Order Comment: Bailee hoffman Type: BLOOD SPECIMEN Ordering Facility: [facility] Address: [address] [place] [address] Performed By: #### 2 4323-8, 49256-7, 3024-7, 3053-6 #### [facility] CLIA [id number] [address] [place] [address] [place] Iron binding capacity [Mass/Vol] 362 ug/dL Normal 232-386 [facility] Comment on above: Order Comment: Bailee hoffman Type: BLOOD SPECIMEN Ordering Facility: [facility] Address: [address] [place] [address] Performed By: #### 2 4323-8, 82158-1, 3024-7, 3053-6 #### [facility] CLIA [id number] [address] [place] [address] [place] Iron/TIBC [Molar ratio] 27.3 % Normal 15.0-57.0 [facility] Comment on above: Order Comment: Bailee hoffman Type: BLOOD SPECIMEN Ordering Facility: [facility] Address: [address] [place] [address] Performed By: #### 2 4323-8, 78471-4, 3024-7, 3053-6 #### [facility] CLIA [id number] [address] [place] [address] [place] Anel-1 extractable nuclear Ab Qn (S)on 02-08-2023 ANEL 1 ANTIBODY QUAL Negative Normal Negative [facility] Comment on above: Order Comment: Bailee hoffman Type: BLOOD SPECIMEN Ordering Facility: [facility] Address: [address] [place] [address] Result Comment: Anti -ANEL-1 antibody is used as an aid in diagnosis of polymyositis and dermatomyositis especially with pulmonary involvement. A negative result cannot rule out polymyositis or dermatomyositis. Clinical correlation is required. Test Methodology: Multiplex flow immunoassay. Performed By: #### 2 276-4, 3016-3, 24118-4, 1988-03 #### [facility] CLIA [id number] [address] [place] [address] [place] Nuclear Ab IA Ql (S)on 02-08 MARY BY EIA, QUAL Negative Normal Negative [facility] Comment on above: Order Comment: Speci men Type: BLOOD SPECIMEN Ordering Facility: [facility] Address: [address] [place] [address] Result Comment: The qualitative antinuclear antibody screen test performed using enzyme immunoassay including the following antigens: dsDNA, histones, SS-A, SS-B, Sm, Sm/COST CONSULTANT, Scl-70, Anel-1, and centromeric antigens. Performed By: #### 2 276-4, 301-3, , 1988-03 #### [facility] CLIA [id number] [address] [place] [address] [place] Rheumatoid fact SerPl-aCncon 02-08-2023 Rheumatoid factor Qn [IU]/mL Normal <16 [facility] Comment on above: Order Comment: Speci men Type: BLOOD SPECIMEN Ordering Facility: [facility] Address: [address] [place] [address] Performed By: #### 2 276-4, 3015-3, , 1988-03 #### [facility] CLIA [id number] [address] [place] [address] [place] Ribonucleoprotein extractabl e nuclear Ab Qn (S)on 02-08-2023 ANTI-COST CONSULTANT QUAL Negative Normal Negative [facility] Comment on above: Order Comment: Speci men Type: BLOOD SPECIMEN Ordering Facility: [facility] Address: [address] [place] [address] Performed By: #### 2 276-4, 301-3, , 1988-03 #### [facility] CLIA [id number] [address] [place] [address] [place] RIBOSOMAL COST CONSULTANT QUAL Negative Normal Negative [facility] Comment on above: Order Comment: Bailee hoffman Type: BLOOD SPECIMEN Ordering Facility: [facility] Address: [address] [place] [address] Result Comment: Anti -Ribosomal RNA (Ribosomal P) antibody is used as an aid in diagnosis of systemic autoimmune diseases especially systemic lupus erythematosus and mixed connective tissue disease. Cross-reactivity with Anti-ramires antibody is not uncommon. Clinical correlation is required. Test Methodology: Multiplex flow immunoassay. Performed By: #### 2 276-4, 3016-3, , 1988-03 #### [facility] CLIA [id number] [address] [place] [address] [place] SCL-70 extractable nuclear I gG IA Qn (S)on 02-08-2023 SCLERODERMA AB QUAL Negative Normal Negative [facility] Comment on above: Order Comment: Bailee hoffman Type: BLOOD SPECIMEN Ordering Facility: [facility] Address: [address] [place] [address] Performed By: #### 2 276-4, 3015-3, , 1988-03 #### [facility] CLIA [id number] [address] [place] [address] [place] SCLERODERMA IGG AB <0.2 Normal <1.0 [facility] Comment on above: Order Comment: Bailee hoffman Type: BLOOD SPECIMEN Ordering Facility: [facility] Address: [address] [place] [address] Result Comment: Scl- 70/Scleroderma antibody test is used as an aid in diagnosis of systemic sclerosis especially the diffuse cutaneous form. A negative result cannot rule out systemic sclerosis. The final interpretation should consider clinical picture and other test results such as anti-centromere antibody. Test Methodology: Multiplex flow immunoassay. Performed By: #### 2 276-4, 3016-3, 21163-7, 1988-03 #### [facility] CLIA [id number] [address] [place] [address] [place] Sjogrens syndrome-A extracta ble nuclear Ab Qn (S)on 02-08-2023 SSA ANTIBODY QUAL Negative Normal Negative [facility] Comment on above: Order Comment: Speci men Type: BLOOD SPECIMEN Ordering Facility: [facility] Address: [address] [place] [address] Performed By: #### 2 276-4, 3016-3, 44647-2, 1988-03 #### [facility] CLIA [id number] [address] [place] [address] OF A[place] Sjogrens syndrome-B extracta ble nuclear Ab Qn (S)on 02-08-2023 SSB ANTIBODY QUAL Negative Normal Negative [facility] Comment on above: Order Comment: Speci men Type: BLOOD SPECIMEN Ordering Facility: [facility] Address: [address] [place] [address] Performed By: #### 2 276-4, 3016-3, 26713-1, 1988-03 #### [facility] CLIA [id number] [address] [place] [address] [place] Ramires extractable nuclear Ig G Qn (S)on 02-08-2023 SM ANTIBODY QUAL Negative Normal Negative [facility] Comment on above: Order Comment: Speci dalton Type: BLOOD SPECIMEN Ordering Facility: [facility] Address: [address] [place] [address] Result Comment: Anti -Sm (Ramires) antibody is used as an aid in diagnosis of systemic lupus erythematosus and its presence is associated with renal disease. A negative result cannot rule out systemic lupus erythematosus. Clinical correlation is required. Test Methodology: Multiplex flow immunoassay. Performed By: #### 2 276-4, 3016-3, 75842-7, 1988-03 #### [facility] CLIA [id number] [address] [place] [address] [place] T3 SerPl-mCncon 02-08-2023 T3 [Mass/Vol] 111 ng/dL Normal 79-165 [facility] Comment on above: Order Comment: Bailee hoffman Type: BLOOD SPECIMEN Ordering Facility: [facility] Address: [address] [place] [address] Performed By: #### 2 4323-8, 98352-5, 3024-7, 3053-6 #### [facility] CLIA [id number] [address] [place] [address] [place] T4 Free SerPl-mCncon 023 Free T4 [Mass/Vol] 1.0 ng/dL Normal 0.9-1.7 [facility] Comment on above: Order Comment: Bailee hoffman Type: BLOOD SPECIMEN Ordering Facility: [facility] Address: [address] [place] [address] Performed By: #### 2 4323-8, 03106-4, 3024-7, 3053-6 #### [facility] CLIA [id number] [address] [place] [address] [place] THYROID PEROXIDASE ANTIBODY BLOODon 02-08-2023 TPO Ab Qn [IU]/mL Normal <5.6 [facility] Comment on above: Order Comment: Bailee hoffman Type: BLOOD SPECIMEN Ordering Facility: [facility] Address: [address] [place] [address] Result Comment: Thyr oid Peroxidase Antibody test is used as an aid in diagnosis of autoimmune thyroid disease. Clinical correlation is required. Performed By: #### M ICRO #### [facility] CLIA [id number] [address] [place] [address] [place] TSH SerPl-aCncon 02-08-2023 TSH Qn 1.030 m[IU]/L Normal 0.270-4.200 [facility] Comment on above: Order Comment: Bailee hoffman Type: BLOOD SPECIMEN Ordering Facility: [facility] Address: [address] [place] [address] Result Comment: If t he patient is , TSH reference range varies by gestational period: First Trimester (weeks 9-12): 0.180-2.990 mIU/L Second Trimester: 0.110-3.980 mIU/L Third Trimester: 0.480-4.710 mIU/L Feliz Leblanc et al. A Practical Approach for the Verifications and Determination of Site- and Trimester-Specific Reference Intervals for Thyroid Function tests in . Thyroid, 2019:29:3:412-420. Pro Gutierrez, et al. 2017 Guidelines of the [place] Thyroid Association for the Diagnosis and Management of Thyroid Disease during and the . Thyroid, 2017:27:3:315-389. Performed By: #### 2 276-4, 3016-3, 29020-4, 1988-03 #### [facility] CLIA [id number] [address] [place] [address] [place] Vit B12 SerPl-mCncon 023 Cobalamin (Vitamin B12) [Mass/Vol] 568 pg/mL Normal 232-1245 [facility] Comment on above: Order Comment: Bailee hoffman Type: BLOOD SPECIMEN Ordering Facility: [facility] Address: [address] [place] [address] Performed By: #### 2 276-4, 3016-3, 79632-5, 1988-03 #### [facility] CLIA [id number] [address] [place] [address] [place] cCP IgG SerPl-aCncon 023 Cyclic citrullinated peptide IgG Qn <15 Normal <20 [facility] Comment on above: Order Comment: Bailee hoffman Type: BLOOD SPECIMEN Ordering Facility: [facility] Address: [address] [place] [address] Performed By: #### 2 276-4, 3016-3, 09530-5, 1988-03 #### [facility] CLIA [id number] [address] [place] [address] [place] CNOVon 01-26-2023 CNOV Office Visit (FAMPWS) SUSANA MCCLAIN ([id number]) 1990 F Date Time Provider Department 01/26/23 1:40 PM MARCO ANTONIO COSTA During your visit today, we recorded the following information about you: Temperature Pulse Respiration Blood pressure 99.5 degrees 83/minute 16/minute 122/84 Weight 85.7 kg Marco Antonio Costa APRN.[place] 01/26/2023 4:02 PM Signed Chief Complaint Patient presents with: Pain, Back: Lower back, Abcess drained in Er - October 2022 HPI Susana Mcclain is a 32 year old female who presents here today for Above Complaints.. Today: Had abscess drained that was right by her tailbone in ED at [facility] on 10/2022. Seems to come back intermittently, [...] Grandfather Patient Allergies ALLERGIES Allergen Reactions Z Abdulaziz [Azithromycin] Rash Current Medications Current Outpatient Medications [...] 7 days post vein procedure. No current facility-administere d medications on file prior to visit. Social [...] FERRITIN BLD - MARY BLOOD - CCP (more content not included)... Normal [facility] UA DIP, URINE (POC)on 2021 BILIRUBIN UA (POCT) Negative Negative [facility] CLARITY UA (POCT) Clear [facility] COLOR UA (POCT) Yellow [facility] GLUCOSE UA (POCT) Negative Negative mg/dL [facility] HEMOGLOBIN/BLOOD UA (POCT) Trace-lysed Abnormal Negative [facility] KETONE UA (POCT) Negative Negative mg/dL [facility] LEUKOCYTES UA (POCT) Small Abnormal Negative [facility] NITRITE UA (POCT) Negative Negative [facility] PH UA (POCT) 6.0 4.5 - 8.0 [facility] Protein Ql (U) Negative Negative mg/dL [facility] SPECIFIC GRAVITY UA (POCT) <=1.005 Abnormal 1.005 - 1.030 [facility] UROBILINOGEN UA (POCT) 0.2 E.U./dL Normal E.U./dL [facility] US THYROID/PARATHYROIDon [facility] Clinical Summary: MarcelaDiana n 03-14-2022 [facility] OP Visit Invalid Interpretation Code [facility] Work Phone: Clinical Summary: Liborio elida 01-27-2022 [facility] OP Visit Invalid Interpretation Code [facility] Work Phone: ANES Daquan 10-15-2018 ANES POST HNO ID: [id number] Author: Alec Harris Service: Anesthesiology Author Type: Anesthesiologist Type: Anesthesia PostOp Filed: 10/15/2018 3:45 PM Note Text: POST ANESTHESIA EVALUATION NOTE SERVICE DATE: 10/15/2018 SERVICE TIME: 3.44 : 1990 Vitals: 10/15/18 0907 10/15/18 1402 Temp: 36.3 ?C (97.3 ?F) 36 ?C (96.8 ?F) 10/15/18 1402 10/15/18 1415 10/15/18 1430 10/15/18 1443 BP: 104/65 99/57 99/58 98/58 10/15/18 1402 10/15/18 1415 10/15/18 1430 10/15/18 1443 Pulse: 75 74 75 70 10/15/18 1402 10/15/18 1415 10/15/18 1430 10/15/18 1443 Resp: 16 16 18 18 10/15/18 1402 10/15/18 1415 10/15/18 1430 10/15/18 1443 SpO2: 99% 98% 98% 97% Validated Vital Signs: Yes POST ANES STATUS: No apparent anesthetic complications. The patient is appropriately hydrated with stable respiratory and cardiovascular status. Patient has safe and adequate airway control. The patient has appropriate pain relief and no significant post operative nausea or vomiting. The patient has achieved baseline mental status. Intra-Operative Events: No Significant Anesthesia Events Further assessment by Anesthesia Service: None Other Remarks: SIGNATURE: Alec Harris MD PATIENT NAME: Susana Mcclain DATE: October 15, 2018 TIME: 3:44 PM PAGER/CONTACT #: anesthesia [facility] ANES PREOPon 10-15-2018 ANES PREOP HNO ID: [id number] Author: Chas Walsh Service: Anesthesiology Author Type: Anesthesiologist Type: Anesthesia PreOp Filed: 10/15/2018 9:53 AM Note Text: ANESTHESIOLOGY DAY OF SURGERY NOTE SERVICE DATE: 10/15/2018 SERVICE TIME: 9:53 AM : 1990 Procedure(s) (LRB): STAB PHLEBECTOMY VARICOSE VEINS 1 EXTREMITY; MORE THAN 20 INCISIONS (Right) Surgeon(s): Pati Tamayo Estimated body mass index is 27.5 kg/m? as calculated from the following: Height as of this encounter: 175.6 cm (5' 9.13). Weight as of this encounter: 84.8 kg (186 lb 15.2 oz). Most recent hematocrit and potassium results: Hematocrit 39.8 08/18/2017 Potassium 3.9 08/18/2017 ANES DOS/PREOP NOTE: Vitals: 10/15/18 0907 BP: 112/75 Pulse: 76 Resp: 16 Temp: 36.3 ?C (97.3 ?F) TempSrc: Temporal Artery SpO2: 99% Weight: 84.8 kg (186 lb 15.2 oz) Height: 175.6 cm (5' 9.13) ACTIVE PROBLEM LIST Varicose Veins Ascus On Pap Smear Pain in Joint, Lower Leg Varicose Veins of Leg With Pain, Right PAST MEDICAL HISTORY Diagnosis Date - ASCUS with positive high risk HPV 10/31/13 - Genital herpes - Patellofemoral syndrome - PMH - PAST MEDICAL HISTORY OF AGE 11 MENEINGITIS - depression - Varicosities RIGHT LEG AND PERINEAL PAST SURGICAL HISTORY Procedure Laterality Date - LIGATE FALLOPIAN TUBE - PAST SURGICAL HISTORY OF WISDOM TEETH - PAST SURGICAL HISTORY OF Right laser treatment for varicose veins - VAGINOSCOPY 12/17/13 MARIOLA 1 FAMILY HISTORY Problem Relation Age of Onset - Adopted: Yes - Alcohol/Drug Mother - Hypertension Mother - Lipids Mother - other (Unknown) Father - Cancer Maternal Grandmother - Cancer Maternal Grandfather - Asthma Brother - Cancer Maternal Uncle LUNG CANCER Social History: Social History Substance Use Topics - Smoking status: Current Every Day Smoker Years: 1.00 Types: Cigarettes, Cigars Last attempt to quit: 10/19/2008 - Smokeless tobacco: Never Used Comment: 8 cigars per day-for about 1 month as of 10/14/18-previously smoked cigarettes on AND off until 2007 - Alcohol use Yes Comment: occasionally-does not drink on weekly basis No current facility-administere d medications on file prior to encounter. No current outpatient prescriptions on file prior to encounter. Current Facility-Administere d Medications: lactated ringers infusion 5-30 mL/hr INTRAVENOUS CONTINUOUS Pati Tamayo Last Rate: 30 mL/hr at 10/15/18914 30 mL/hr at 10/15/18914 Allergies: ALLERGIES Allergen Reactions - Amitriptyline Other: See Comments Self report of aggressive behavior - Z Abdulaziz [Azithromycin] Rash DOS EXAM: Adequate NPO status: Yes Anesthetic risks, benefits, alternatives, personnel and consent discussed: Yes Patient agrees to proceed: Yes Previous Anesthesia: No history of adverse event. Airway Assessment: MP 2; Neck ROM: Full ROM without neurologic symptoms; Airway Evaluation: No significant abnormalities Symptoms of Sleep Apnea: None Dentition: Teeth intact Additional Physical Exam: Lungs: Patient health status unchanged since recent history and physical. See history and physical for exam findings. Cardiac: Patient health status unchanged since recent history and physical. See history and physical for exam findings. Additional Pertinent Findings: N/A Blood Products: Not anticipated for this procedure. Anesthetic Plan: General, Standard ASA Monitors Pain Management Plan: Parenteral or Oral ASA Class: 2 Other Medical Problems: None I have interviewed and examined the patient. I have reviewed the medical record and/or the pre-anesthesia evaluation, pertinent labs, and test results. Significant changes in the patient's condition since the History and Physical, not otherwise documented in primary service progress notes: No This contains updated information obtained within 48 hours of Surgery/Procedure. SIGNATURE: Chas Walsh MD PATIENT NAME: Susana Mcclain DATE: October 15, 2018 TIME: 9:53 AM CSN: [id number] [facility] BRIEF OP NOTon 10-15-2018 BRIEF OP NOT HNO ID: [id number] Author: Pati Tamayo Service: Vascular Surgery Author Type: Physician Type: Brief Op Note Filed: 10/15/2018 2:15 PM Note Text: BRIEF OP NOTE LOG ID: [id number] Surgery/Procedure Date: 10/15/2018 Incision/Procedure Start Time: 12:10 PM Incision Close/Procedure End Time: 1:50 PM Surgeon(s)/Procedura list(s) and Ceramic Saw Tender(s): Surgeon(s) and Role: * Pati Tamayo - Primary Roz Smith Procedure(s): Right leg stab phlebectomy, 16 incisions Anesthesia: Monitored Anesthesia Care Findings: varicose veins Estimated Blood Loss: per anesthesia record Specimens: veins Complications: None Pre-Op/Pre-Procedure Diagnosis: Symptomatic varicose veins Post-Op/Post-Procedu re Diagnosis: Varicose veins of leg with pain, right SIGNATURE: Pati Tamayo DO PATIENT NAME: Susana Mcclain DATE: October 15, 2018 TIME: 2:14 PM PAGER/CONTACT #: Daniela [facility] OPERATIVE NOon 10-15-2018 OPERATIVE NO HNO ID: [id number] Author: Pati Tamayo Service: Vascular Surgery Author Type: Physician Type: Operative Report Filed: 11/04/2018 1:40 PM Note Text: [facility] - Operative Report SUSANA MCCLAIN : 1990 AGE: 28. SEX: F PATIENT TYPE: A HOSP SVC: ALESSANDRO LOCATION: [facility] ATTENDING PHYSICIAN: Pati Tamayo D.O. CSN NUMBER: [id number] DATE OF SURGERY/PROCEDURE: 10/15/2018 INCISION/PROCEDURE START TIME: 12:10. INCISION CLOSE/PROCEDURE END TIME: 13:50. PREOPERATIVE DIAGNOSIS: Symptomatic varicose veins. POSTOPERATIVE DIAGNOSIS: Symptomatic varicose veins. SURGEON: Pati Tamayo D.O. BARIATRIC PHYSICIAN: Roz Aldridge. SURGERY/PROCEDURE: Right leg stab phlebectomy, 16 incisions. ANESTHESIA: Monitored anesthesia care. INDICATIONS: The patient is a 28-year-old female with a history of symptomatic varicose veins. She had undergone endovenous laser ablation in the past for which she tolerated well. She now had recurrent residual varicose veins that were becoming more symptomatic. With this, it was recommended that she undergo a stab phlebectomy. DESCRIPTION OF PROCEDURE: The location of her veins was marked in the standing position in the pre-surgery area with indelible ink. She was then taken to the operating room, a huddle was performed. Following this, she was placed supine on the operating room table. Her right leg was then prepped and draped in standard sterile fashion and a time-out was performed. I then infiltrated the areas of the planned incisions with 1% lidocaine. Following this with an #11 blade, I made a total of 16 stab incisions throughout the medial aspect of the distal thigh as well as posterior calf and lateral foot. We identified the veins with smooth Adson forceps and curved Munoz hemostats. We ligated deep branches with 4-0 silk suture. The veins were avulsed and passed off the table as specimen. Hemostasis was achieved with manual pressure. The wounds were irrigated and closed with interrupted 4-0 nylon in vertical mattress fashion. Sterile dressing of Adaptic, 4x4, ABD pads, Kerlix, and Coban were applied. The patient was awakened in the operating room and taken to the postanesthesia care unit in stable condition. All sponge, needle counts were correct. I was present, scrubbed, and performed this with the assistance of Roz Aldridge. Pati Tamayo D.O. [id number] /[id number] [facility] PT EDon 10-15-2018 PT ED HNO ID: [id number] Author: Micaela MoscosoRn) JOE Geronimo Service: Nursing Author Type: Registered Nurse Type: Patient Education Filed: 10/15/2018 3:21 PM Note Text: POST OP LEARNING RESPONSE INSTRUCTION PROVIDED TO: Patient and family member METHOD OF INSTRUCTION: Individual instruction PATIENT / FAMILY RESPONSE: Verbalizes understanding of: POST-OPERATIVE INSTRUCTIONS-Correct actions to take to reduce postoperative complications FOLLOW-UP PLAN: Patient instructed to call with any further issues SUPPLEMENTAL MATERIAL: None REFERRAL (RECOMMENDATION): None Electronically Signed By: Micaela Geronimo RN In Department: [facility] SURGERY [facility] PT ED HNO ID: [id number] Author: Porsha MoscosoRn) Felicia, RN Service: (none) Author Type: Registered Nurse Type: Patient Education Filed: 10/15/2018 9:11 AM Note Text: PRE OP LEARNING ASSESSMENT PROCEDURE/SURGERY: Stab phlebectomy READINESS TO LEARN Eager COGNITIVE ABILITY: Alert and oriented MOTIVATION TO LEARN: Interested FAMILY SUPPORT: Unable to assess - Family not present PATIENT LEARNS BEST BY: Individual Instruction Verbal Instruction FACTORS AFFECTING LEARNING: None PHYSICAL LIMITATIONS AFFECTING LEARNING: None Electronically Signed By: Porsha Tolentino RN In Department: [facility] SURGERY [facility] SURGICAL PATHOLOGYon 018 SURGICAL PATHOLOGY Specimen originated from [facility] Specimen #: [id number] Submitting Physician: PATI TAMAYO FINAL DIAGNOSIS Right leg, veins, excision: - Phlebosclerosis. ERR/dbb 10/16/2018 COMMENT Microscopic examination shows vein wall tissue in which the Movat stain to characterize a connective tissue components of the specimen demonstrates increased fibrous tissue separately the smooth muscle bundles throughout the media of the vessel. There is no evidence of thrombosis. There is no evidence of phlebitis. Smooth Pierson ([id number]) (Electronic Signature) SPECIMEN SUBMITTED A: VARICOSE VEINS RIGHT LEG CLINICAL DATA VARICOSE VEINS OF LEG WITH PAIN, RIGHT, LMP: 10-05-18, HCG NEGATIVE GROSS DESCRIPTION A. Received in formalin labeled as varicose veins right leg are multiple tortuous pieces of vascular tissue aggregating to 5.0 x 4.5 x 0.3 cm. No thrombi are identified. No calcification is present. Pipe Bender sections are submitted in one cassette. Gross examination performed at [facility], [address] [place] [address] RECOVERY ENGINEER/lbk 10/15/2018 Date of Report: 10/16/2018 Date of Procedure: 10/15/2018 Date of Receipt: 10/15/2018 Submitted by: PATI TAMAYO Location: [facility] Diagnostic interpretation performed at [facility], [address] [place] [address]. [facility] Comment on above: Performed By: #### P ATHS #### [employer] [address] [place] [address] [phone] HOSPon 09-03-2018 HOSP Patient:Susana Mcclain MRN: Height:5' 9(1.753 m) Weight:186 lb (84.369 kg) Outpatient Medications as of 10/15/18: cyclobenzaprine (FLEXERIL) 10 mg tablet Admission/Clinic Administered Medications as of 10/15/18: lactated ringers infusion Problem List: Varicose veins [I83.90] ASCUS on Pap smear [R89.6] Pain in joint, lower leg [M25.569] Varicose veins of leg with pain, 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] Allergies: Amitriptyline Z Abdulaziz [Azithromycin] Date Verified: 10/15/18 Lab Values No results within the last 30 days for the following basenames: K,HCT Progress Notes ([facility]): Sylvia Navarro APRN.DIRECTOR OF CLAIMS 10/02/2018 10:36 AM Signed This note was created using [employer]. Subjective Susana Mcclain is a 28 year old female. The history is provided by the patient. No language asst was used. Neck Pain This is a new problem. Episode onset: 4 days ago. The problem occurs constantly. The problem has been gradually worsening. The pain is associated with nothing. The quality of the pain is described as shooting, stabbing and aching. The pain is at a severity of 8/10. The pain is severe. Exacerbated by: movement. Associated symptoms include headaches and numbness. Pertinent negatives include no fever, syncope, tingling, visual change, weakness or weight loss. She has tried heat, chiropractic manipulation and ice (muscle rubs) for the symptoms. The treatment provided no relief. Review of Systems Constitutional: Negative for fever and weight loss. Cardiovascular: Negative for syncope. Musculoskeletal: Positive for neck pain. Neurological: Positive for numbness and headaches. Negative for tingling and weakness. Objective BP 100/72 (BP Site: Right Arm, BP Position: Sitting, BP Cuff Size: Regular Adult) Pulse 80 Resp 16 Wt 84.8 kg (187 lb) BMI 27.51 kg/m? Physical Exam Constitutional: She is oriented to person, place, and time. She appears well-developed and well-nourished. HENT: Head: Normocephalic and atraumatic. Right Ear: External ear normal. Left Ear: External ear normal. Eyes: Pupils are equal, round, and reactive to light. Conjunctivae are normal. Neck: Muscular tenderness present. Decreased range of motion present. Cardiovascular: Normal rate, regular rhythm, S1 normal, S2 normal and normal heart sounds. No murmur heard. Pulmonary/Chest: Effort normal and breath sounds normal. No respiratory distress. Musculoskeletal: Right shoulder: She exhibits tenderness and pain. She exhibits normal range of motion, no bony tenderness, no swelling, no effusion, no crepitus, no deformity, no laceration, no spasm, normal pulse and normal strength. Arms: Lymphadenopathy: She has no cervical adenopathy. Neurological: She is alert and oriented to person, place, and time. She has normal strength. No cranial nerve deficit or sensory deficit. Skin: Skin is warm, dry and intact. No rash noted. ASSESSMENT/PLAN: 1. Cervical (neck) region somatic dysfunction - ICD9: 739.1, ICD10: M99.01 - CYCLOBENZAPRINE 10 MG TABLET - PREDNISONE 10 MG TABLET - provided patient with spine stretches and exercise - f/u PRN Sylvia Navarro APRN.[facility] Vital Signs Date Time Vital Sign Value Performing Clinician Facility 12-15-2024 08:00-0500 Body height 175.3 cm Angel Harris MD Work Phone: [facility] 12-15-2024 08:00-0500 Body mass index (BMI) [Ratio] 27.76 kg/m2 Angel Harris MD Work Phone: [facility] 12-15-2024 08:00-0500 Body weight 85.28 kg Angel Harris MD Work Phone: [facility] 12-15-2024 08:00-0500 Diastolic blood pressure 62 mm[Hg] Angel Harris MD Work Phone: [facility] 12-15-2024 08:00-0500 Heart rate 58 /min Angel Harris MD Work Phone: [facility] 12-15-2024 08:00-0500 SaO2% (BldA) [Mass fraction] 98 % Angel Harris MD Work Phone: [facility] 12-15-2024 08:00-0500 Systolic blood pressure 112 mm[Hg] Angel Harris MD Work Phone: [facility] 01-20-2024 11:53-0500 Body temperature 98.6 [degF] Gloria Athy PA-C Work Phone: [facility] 01-20-2024 11:53-0500 Body weight 88.36 kg Gloria Athy PA-C Work Phone: [facility] 01-20-2024 11:53-0500 Diastolic blood pressure 80 mm[Hg] Gloria Athy PA-C Work Phone: [facility] 01-20-2024 11:53-0500 Heart rate 100 /min Gloria Athy PA-C Work Phone: [facility] 01-20-2024 11:53-0500 Respiratory rate 21 /min Gloria Athy PA-C Work Phone: [facility] 01-20-2024 11:53-0500 SaO2% (BldA) [Mass fraction] 98 % Gloria Athy PA-C Work Phone: [facility] 01-20-2024 11:53-0500 Systolic blood pressure 122 mm[Hg] Gloria Athy PA-C Work Phone: [facility] 01-26-2023 13:47-0500 Body temperature 99.5 [degF] Marco Antonio Ellen POLLS OR SURVEYS INTERVIEWER.DIRECTOR OF CLAIMS Work Phone: [facility] 01-26-2023 13:47-0500 Body weight 85.73 kg Marco Antonio Ellen POLLS OR SURVEYS INTERVIEWER.DIRECTOR OF CLAIMS Work Phone: [facility] 01-26-2023 13:47-0500 Diastolic blood pressure 84 mm[Hg] Marco Antonio Ellen POLLS OR SURVEYS INTERVIEWER.DIRECTOR OF CLAIMS Work Phone: [facility] 01-26-2023 13:47-0500 Heart rate 83 /min Marco Antonio Ellen POLLS OR SURVEYS INTERVIEWER.DIRECTOR OF CLAIMS Work Phone: [facility] 01-26-2023 13:47-0500 Respiratory rate 16 /min Marco Antonio Ellen POLLS OR SURVEYS INTERVIEWER.DIRECTOR OF CLAIMS Work Phone: [facility] 01-26-2023 13:47-0500 SaO2% (BldA) [Mass fraction] 98 % Marco Antonio Ellenbyron ANDRADE.DIRECTOR OF CLAIMS Work Phone: [facility] 01-26-2023 13:47-0500 Systolic blood pressure 122 mm[Hg] Marco Antonio Costa APRN.DIRECTOR OF CLAIMS Work Phone: [facility] 10-23-2022 11:02-0500 Body temperature 99.61 [degF] Chani Bogner PA-C Work Phone: [facility] 10-23-2022 11:02-0500 Body weight 84.91 kg Chani Bogner PA-C Work Phone: [facility] 10-23-2022 11:02-0500 Diastolic blood pressure 86 mm[Hg] Chani Bogner PA-C Work Phone: [facility] 10-23-2022 11:02-0500 Heart rate 84 /min Chani Bogner PA-C Work Phone: [facility] 10-23-2022 11:02-0500 Respiratory rate 20 /min Chani Bogner PA-C Work Phone: [facility] 10-23-2022 11:02-0500 SaO2% (BldA) [Mass fraction] 99 % Chani Bogner PA-C Work Phone: [facility] 10-23-2022 11:02-0500 Systolic blood pressure 124 mm[Hg] Chani Bogner PA-C Work Phone: [facility] 09-29-2022 11:08-0500 Body temperature 99 [degF] Divina Levi APRN.DIRECTOR OF CLAIMS Work Phone: [facility] 09-29-2022 11:08-0500 Body weight 85.55 kg Divina Levi APRN.DIRECTOR OF CLAIMS Work Phone: [facility] 09-29-2022 11:08-0500 Diastolic blood pressure 78 mm[Hg] Divina Levi POLLS OR SURVEYS INTERVIEWER.DIRECTOR OF CLAIMS Work Phone: [facility] 09-29-2022 11:08-0500 Heart rate 90 /min Divina Levi POLLS OR SURVEYS INTERVIEWER.DIRECTOR OF CLAIMS Work Phone: [facility] 09-29-2022 11:08-0500 Respiratory rate 16 /min Divina Levi POLLS OR SURVEYS INTERVIEWER.DIRECTOR OF CLAIMS Work Phone: [facility] 09-29-2022 11:08-0500 SaO2% (BldA) [Mass fraction] 99 % Divina Levi POLLS OR SURVEYS INTERVIEWER.DIRECTOR OF CLAIMS Work Phone: [facility] 09-29-2022 11:08-0500 Systolic blood pressure 138 mm[Hg] Divina Levi POLLS OR SURVEYS INTERVIEWER.DIRECTOR OF CLAIMS Work Phone: [facility] 07-03-2022 15:13-0400 Body weight 83.92 kg Thuy Bassswathi POLLS OR SURVEYS INTERVIEWER.DIRECTOR OF CLAIMS Work Phone: [facility] 07-03-2022 15:13-0400 Diastolic blood pressure 78 mm[Hg] Thuy Zurawick POLLS OR SURVEYS INTERVIEWER.DIRECTOR OF CLAIMS Work Phone: [facility] 07-03-2022 15:13-0400 Heart rate 82 /min Thuy Zurawiswathi POLLS OR SURVEYS INTERVIEWER.DIRECTOR OF CLAIMS Work Phone: [facility] 07-03-2022 15:13-0400 Respiratory rate 16 /min Thuy Kaliswathi POLLS OR SURVEYS INTERVIEWER.DIRECTOR OF CLAIMS Work Phone: [facility] 07-03-2022 15:13-0400 Systolic blood pressure 122 mm[Hg] Thuy Zurawick POLLS OR SURVEYS INTERVIEWER.DIRECTOR OF CLAIMS Work Phone: [facility] 06-07-2022 10:51-0400 Body height 178 cm Marco Antonio Costa POLLS OR SURVEYS INTERVIEWER.DIRECTOR OF CLAIMS Work Phone: [facility] 06-07-2022 10:51-0400 Body weight 85.19 kg Marco Antonio Ellen POLLS OR SURVEYS INTERVIEWER.DIRECTOR OF CLAIMS Work Phone: [facility] 06-07-2022 10:51-0400 Diastolic blood pressure 78 mm[Hg] Marco Antonio Costa POLLS OR SURVEYS INTERVIEWER.DIRECTOR OF CLAIMS Work Phone: [facility] 06-07-2022 10:51-0400 Heart rate 107 /min Marco Antonio Costa POLLS OR SURVEYS INTERVIEWER.DIRECTOR OF CLAIMS Work Phone: [facility] 06-07-2022 10:51-0400 SaO2% (BldA) [Mass fraction] 97 % Marco Antonio Costa POLLS OR SURVEYS INTERVIEWER.DIRECTOR OF CLAIMS Work Phone: [facility] 06-07-2022 10:51-0400 Systolic blood pressure 118 mm[Hg] Marco Antonio Costa POLLS OR SURVEYS INTERVIEWER.DIRECTOR OF CLAIMS Work Phone: [facility] NEGATED: Highlighted [id number] 08:19-0400 Body height 175.26 cm Yasmin Darin AT [facility] Work Phone: NEGATED: Highlighted [id number] 08:19-0400 Body height 175 cm Yasmin Darin AT [facility] Work Phone: NEGATED: Highlighted [id number] 08:19-0400 Body mass index (BMI) [Ratio] 28.9 kg/m2 Yasmin Darin AT [facility] Work Phone: NEGATED: Highlighted [id number] 08:19-0400 Body weight 88.45 kg Yasmin Darin AT [facility] Work Phone: NEGATED: Highlighted [id number] 08:19-0400 Body weight 89 kg Yasmin Darin AT [facility] Work Phone: NEGATED: Highlighted [id number] 12:17-0500 Body height 175.26 cm [facility] Work Phone: NEGATED: Highlighted [id number] 12:17-0500 Body height 175 cm [facility] Work Phone: NEGATED: Highlighted [id number] 12: Body mass index (BMI) [Ratio] 28.9 kg/m2 [facility] Work Phone: NEGATED: Highlighted [id number] 12: Body weight 88.45 kg [facility] Work Phone: NEGATED: Highlighted [id number] 12: Body weight 89 kg [facility] Work Phone: Encounters Encounter Date Encounter Type Care Provider Facility Start: 06-02-2025 ambulatory Yasmine Beavers Facilit y:[facility] Start: 12-25-2024 ambulatory Yasmine Beavers Facilit y:[facility] Start: 12-25-2024 End: 12-25-2024 ambulatory Yasmine Beavers Facility:[facility] Start: 12-15-2024 End: 12-15-2024 Office outpatient new 30 minutes Angel Harris MD Work Phone: [facility] Comment on above: Palpitations (Primar y Dx); Precordial chest pain; Shortness of breath; Tobacco use Start: 12-15-2024 ambulatory YASMINE BEAVERS Facility: [facility] Start: 11-28-2024 End: 11-28-2024 ambulatory Yasmine Beavers Facility:[facility] Start: 11-07-2024 End: 11-07-2024 ambulatory Yasmine Beavers Facility:[facility] Start: 10-21-2024 End: 10-21-2024 ambulatory Yasmine Beavers Facility:[facility] Start: 10-01-2024 End: 10-01-2024 ambulatory Yasmine Beavers Facility:[facility] Start: 09-16-2024 End: 09-16-2024 ambulatory Yasmine Beavers Facility:[facility] Start: 08-22-2024 End: 08-22-2024 ambulatory Zoe Duran NP Facility:[facility] Start: 07-28-2024 ambulatory Angel Gupta Facility:[facility] Start: 06-11-2024 ambulatory Rohit Conteh Facility:[facility] Start: 06-11-2024 End: 06-11-2024 ambulatory Charmaine Cisneros Facility:[facility] Start: 05-23-2024 End: 05-23-2024 Emergency department patient visit Herman Meza Facility:[facility] Start: 05-12-2024 ambulatory Yasmine Beavers Facilit y:[facility] Start: 04-23-2024 End: 04-23-2024 Emergency department patient visit DIANE MANRIQUEZ [facility] Start: 01-22-2024 Telephone encounter Divina Levi POLLS OR SURVEYS INTERVIEWER.DIRECTOR OF CLAIMS Work Phone: [facility] Comment on above: Results; Orders Start: 01-20-2024 End: 01-20-2024 ambulatory ROBER SABA Facility:[facility] Start: 01-20-2024 End: 01-20-2024 Patient encounter procedure Gloria Barrera PA-C Work Phone: [facility] Comment on above: Surgical wound infec tion (Primary Dx) Start: 12-26-2023 ambulatory FLOR MAST POLLS OR SURVEYS INTERVIEWER-DIRECTOR OF CLAIMS Fa cility:A Start: 09-14-2023 End: 09-19-2023 ambulatory FLOR MAST POLLS OR SURVEYS INTERVIEWER-DIRECTOR OF CLAIMS Facility:B Start: 06-28-2023 End: 06-28-2023 Emergency department patient visit GARCIA COWART [facility] Start: 03-05-2023 Refill Deneen lindsay POLLS OR SURVEYS INTERVIEWER.DIRECTOR OF CLAIMS Work Phone: Psychiatry Comment on above: Refill Request Start: 02-09-2023 Telephone encounter Marco Antonio Cheema POLLS OR SURVEYS INTERVIEWER.DIRECTOR OF CLAIMS Work Phone: [facility] [place] Comment on above: Results Start: 02-08-2023 End: 02-09-2023 ambulatory MARCO ANTONIO COSTA Facility:[facility] Start: 02-08-2023 Encounter for wanda l adult medical examination without abnormal findings ROBER SABA [facility] Start: 02-05-2023 End: 02-06-2023 ambulatory DENEEN ROLON Facility:[facility] Start: 02-05-2023 End: 02-05-2023 ambulatory Deneen Rolon POLLS OR SURVEYS INTERVIEWER.DIRECTOR OF CLAIMS Work Phone: Psychiatry Comment on above: NO SHOW (Primary Dx) Start: 02-05-2023 End: 02-05-2023 Telemedicine consultation with patient Deneen Eppsguru FAMDIRECTOR OF CLAIMS Work Phone: [facility] Start: 01-26-2023 End: 01-26-2023 ambulatory ROBER HOWARDON Facility:[facility] Start: 01-26-2023 End: 01-26-2023 Patient encounter procedure Marco Antonio Ellen FAMDIRECTOR OF CLAIMS Work Phone: [facility] [place] Comment on above: Cyst near tailbone ( Primary Dx); Myalgia; Arthralgia, unspecified joint; Sensation of foreign body in throat; Well adult exam; Elevated serum creatinine; Vitamin D deficiency; Screening for diabetes mellitus; Encounter for vitamin deficiency screening; Screening for thyroid disorder Start: 01-26-2023 End: 01-26-2023 Patient encounter status Marco Antonio Costa APRN.DIRECTOR OF CLAIMS Work Phone: [facility] Start: 12-18-2022 End: 12-18-2022 Distance [facility] Deneen Cope [facility]га [facility]RADE[facility] Work Phone: Psychiatry Comment on above: Generalized anxiety disorder (Primary Dx); Bipolar 1 disorder, depressed, moderate (HCC); History of attention deficit hyperactivity disorder (ADHD); History of posttraumatic stress disorder (PTSD) Start: 11-14-2022 End: 11-14-2022 [facility] Deneen Cope Ольга [facility]RADE[facility] Work Phone: Psychiatry Comment on above: 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); Generalized anxiety disorder; History of attention deficit hyperactivity disorder (ADHD) Start: 10-23-2022 ambulatory Rober troy DO Work Phone: [facility] [place] Comment on above: Nasal Congestion; Co ugh Start: 10-23-2022 Telephone encounter Rober miltonrob DO Work Phone: [facility] Comment on above: Migraine; Fever Start: 10-23-2022 End: 10-23-2022 Office outpatient visit 15 minutes Chani Vaughn PA-C Work Phone: [facility] Comment on above: Acute cough (Primary Dx); Nasal congestion Start: 10-13-2022 End: 10-13-2022 [facility] Deneenchris Rolon POLLS OR SURVEYS INTERVIEWER.DIRECTOR OF CLAIMS Work Phone: Psychiatry Comment on above: 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); History of posttraumatic stress disorder (PTSD) Start: 09-29-2022 End: 09-29-2022 Patient encounter procedure Divina Levi POLLS OR SURVEYS INTERVIEWER.DIRECTOR OF CLAIMS Work Phone: [facility] Comment on above: Urinary frequency (P rimary Dx); SOB (shortness of breath) Start: 07-03-2022 End: 07-03-2022 Patient encounter procedure Thuy Bassswathi POLLS OR SURVEYS INTERVIEWER.DIRECTOR OF CLAIMS Work Phone: [facility] [place] Comment on above: Bipolar disorder, in partial remission, most recent episode depressed (HCC) (Primary Dx); Chronic insomnia; ALFREDO (generalized anxiety disorder) Start: 07-03-2022 Telephone encounter Amie MEADOWS Work Phone: Psychology Comment on above: outreach Start: 06-23-2022 Telephone encounter Rober miltonrob DO Work Phone: [facility] [place] Comment on above: Patient Update Start: 06-20-2022 ambulatory Rober troy DO Work Phone: [facility] [place] Comment on above: Er visit Start: 06-19-2022 Telephone encounter Marco Antonio Cheema POLLS OR SURVEYS INTERVIEWER.DIRECTOR OF CLAIMS Work Phone: [facility] [place] Comment on above: Opened In Error Start: 06-19-2022 End: 06-19-2022 Subsequent hospital visit by physician [facility] (I-Stat) Work Phone: Cat Scan Comment on above: Lung nodules [R91.8] Start: 06-14-2022 End: 06-14-2022 Subsequent hospital visit by physician [facility] Work Phone: Radiology Comment on above: Dysphagia, unspecifi ed type [R13.10] Start: 06-07-2022 End: 06-07-2022 Patient encounter procedure Marco Antonio Costa APRN.DIRECTOR OF CLAIMS Work Phone: [facility] Comment on above: Well adult exam (Kyra samantha Dx); Agoraphobia; Bipolar disorder, in partial remission, most recent episode depressed (HCC); Chronic insomnia; Lung nodules; Screening for diabetes mellitus; Screening for thyroid disorder; Screening for lipid disorders; Dysphagia, unspecified type; Sensation of foreign body in throat; Encounter for vitamin deficiency screening Start: 06-07-2022 End: 06-07-2022 Patient encounter status Marco Antonio Costa APRN.DIRECTOR OF CLAIMS Work Phone: [facility] Start: 05-31-2022 End: 05-31-2022 Patient encounter procedure Zeny Escalonags POLLS OR SURVEYS INTERVIEWER.DIRECTOR OF CLAIMS Work Phone: [facility] Comment on above: Pilonidal abscess of cleft (Primary Dx) Start: 05-31-2022 ambulatory Rober Mckeon son DO Work Phone: [facility] Comment on above: LESION, SKIN Start: 03-18-2022 ambulatory Cici CARBAJAL [employer]ER Comment on above: Covid19 Concern Start: 03-18-2022 Distance Health (Vis it Summary) [place] Sanjeev Provider External-Non[facility] Comment on above: Acute sinusitis, uns pecified - Diarrhea, unspecified - Nausea with vomiting, unspecified Start: 03-18-2022 External Contact [place]ronesian [facility] Provider EXTERNAL-NON [facility] Start: 01-27-2022 End: 01-27-2022 Pt evaluation Andry Rivera MD Work Phone: [facility] Work Phone: Procedures Date Procedure Procedure Detail Performing Clinician Start: 09-29-2022 Urnls dip stick/tabl et rgnt auto w/o microscopy Boaz Matute MD Work Phone: Start: 06-19-2022 Ct thorax w/o contra st material Marco Antonio Costa POLLS OR SURVEYS INTERVIEWER.DIRECTOR OF CLAIMS Work Phone: Start: 06-14-2022 Us soft tissue head & neck real time imge docm Marco Antonio Costa POLLS OR SURVEYS INTERVIEWER.DIRECTOR OF CLAIMS Work Phone: Start: 03-14-2022 End: 03-14-2022 BP scrn no perf at interval Nabil Wang PA-C Work Phone: Start: 03-14-2022 End: 03-14-2022 Calc BMI abv up sissy f/u Nabil DELCID-C Work Phone: Start: 03-14-2022 End: 03-14-2022 Current tobacco non-user cad cap copd pv dm Nabil TRUONGC Work Phone: Start: 03-14-2022 End: 03-14-2022 Docrev cur meds by munira DELCID-C Work Phone: Start: 03-14-2022 End: 03-14-2022 Pain [...] End: 03-14-2022 Documentation of current medications Yasmin Webster AT NEGATED: Highlighted rowStart: 01-27-2022 End: 01-27-2022 Documentation of current medications [facility] Plan of Treatment Date Care Activity Detail Author Start: 05-17-2031 Tetanus vaccination TETANUS [facility] Start: 05-17-2031 Urine microalbumin profile DTaP,Tdap,Td Vaccine (8 - Td or Tdap) [facility] Start: 02-19-2027 Urine microalbumin profile DTAP,TDAP,TD (2 - Td or Tdap) [facility] Start: 07-20-2024 COVID-19 VACCINE ( season) COVID-19 VACCINE () [facility] Start: 01-20-2024 End: 04-20-2024 Bacteria identified in Wound by Culture ABSCESS AND WOUND CULTURE WITH GRAM STAIN Microbiology Routine Surgical wound infection Expected: 01/20/2024, Expires: 04/20/2024 [facility] Work Phone: Comment on above: Expected: 01/20/2024, Expires: Start: 11-19-2023 Depression Assessment Depression Assessment [facility] Start: 07-20-2023 Covid-19 Vaccine () Covid-19 Vaccine () [facility] Start: 07-20-2023 Influenza vaccination Influenza Vaccine (#1) [facility] Start: 01-26-2023 End: 03-28-2023 25-hydroxyvitamin D3 [Mass/volume] in Serum or Plasma VITAMIN D 25 HYDROXY Lab Routine Vitamin D deficiency Expected: 01/26/2023, Expires: 03/28/2023 [facility] Work Phone: Comment on above: Expected: 01/26/2023, Expires: 3 Start: 01-26-2023 End: 03-28-2023 C reactive protein [Mass/volume] in Serum or Plasma C-REACTIVE PROTEIN (CRP) Lab Routine Well adult exam Myalgia Arthralgia, unspecified joint Expected: 01/26/2023, Expires: 03/28/2023 [facility] Work Phone: Comment on above: Expected: 01/26/2023, Expires: 3 Start: 01-26-2023 End: 03-28-2023 CBC panel - Blood by Automated count CBC Lab Routine Screening for diabetes mellitus Well adult exam Myalgia Arthralgia, unspecified joint Expected: 01/26/2023, Expires: 03/28/2023 [facility] Work Phone: Comment on above: Expected: 01/26/2023, Expires: 3 Start: 01-26-2023 End: 03-28-2023 Cobalamin (Vitamin B12) [Mass/volume] in Serum or Plasma VITAMIN B12 BLOOD Lab Routine Vitamin D deficiency Encounter for vitamin deficiency screening Expected: 01/26/2023, Expires: 03/28/2023 [facility] Work Phone: Comment on above: Expected: 01/26/2023, Expires: 3 Start: 01-26-2023 End: 03-28-2023 Comprehensive metabolic 2000 panel - Serum or Plasma COMP METABOLIC PANEL Lab Routine Screening for diabetes mellitus Elevated serum creatinine Well adult exam Myalgia Arthralgia, unspecified joint Expected: 01/26/2023, Expires: 03/28/2023 [facility] Work Phone: Comment on above: Expected: 01/26/2023, Expires: 3 Start: 01-26-2023 End: 03-28-2023 Cyclic citrullinated peptide IgG Ab [Units/volume] in Serum or Plasma CCP ANTIBODY IGG Lab Routine Well adult exam Myalgia Arthralgia, unspecified joint Expected: 01/26/2023, Expires: 03/28/2023 [facility] Work Phone: Comment on above: Expected: 01/26/2023, Expires: 3 Start: 01-26-2023 End: 03-28-2023 Erythrocyte sedimentation rate SED RATE WESTERGREN Lab Routine Well adult exam Myalgia Arthralgia, unspecified joint Expected: 01/26/2023, Expires: 03/28/2023 [facility] Work Phone: Comment on above: Expected: 01/26/2023, Expires: 3 Start: 01-26-2023 End: 03-28-2023 Extractable nuclear Ab panel - Serum ANTI MARIPOSA ID Lab Routine Well adult exam Myalgia Arthralgia, unspecified joint Expected: 01/26/2023, Expires: 03/28/2023 [facility] Work Phone: Comment on above: Expected: 01/26/2023, Expires: 3 Start: 01-26-2023 End: 03-28-2023 Ferritin [Mass/volume] in Serum or Plasma FERRITIN BLD Lab Routine Well adult exam Myalgia Arthralgia, unspecified joint Expected: 01/26/2023, Expires: 03/28/2023 [facility] Work Phone: Comment on above: Expected: 01/26/2023, Expires: 3 Start: 01-26-2023 End: 03-28-2023 Iron and Iron binding capacity panel - Serum or Plasma IRON + TIBC Lab Routine Well adult exam Myalgia Arthralgia, unspecified joint Expected: 01/26/2023, Expires: 03/28/2023 [facility] Work Phone: Comment on above: Expected: 01/26/2023, Expires: 3 Start: 01-26-2023 End: 03-28-2023 Nuclear Ab [Presence] in Serum by Immunoassay MARY BLOOD Lab Routine Well adult exam Myalgia Arthralgia, unspecified joint Expected: 01/26/2023, Expires: 03/28/2023 [facility] Work Phone: Comment on above: Expected: 01/26/2023, Expires: 3 Start: 01-26-2023 End: 03-28-2023 Rheumatoid factor [Units/volume] in Serum or Plasma RHEUMATOID FACTOR BL Lab Routine Well adult exam Myalgia Arthralgia, unspecified joint Expected: 01/26/2023, Expires: 03/28/2023 [facility] Work Phone: Comment on above: Expected: 01/26/2023, Expires: 3 Start: 01-26-2023 End: 03-28-2023 THYROID PEROXIDASE ANTIBODY BLOOD THYROID PEROXIDASE ANTIBODY BLOOD Lab Routine Well adult exam Screening for thyroid disorder Myalgia Arthralgia, unspecified joint Expected: 01/26/2023, Expires: 03/28/2023 [facility] Work Phone: Comment on above: Expected: 01/26/2023, Expires: Start: 01-26-2023 End: 03-28-2023 Thyrotropin [Units/volume] in Serum or Plasma TSH BLD Lab Routine Well adult exam Screening for thyroid disorder Myalgia Arthralgia, unspecified joint Expected: 01/26/2023, Expires: 03/28/2023 [facility] Work Phone: Comment on above: Expected: 01/26/2023, Expires: 3 Start: 01-26-2023 End: 03-28-2023 Thyroxine (T4) free [Mass/volume] in Serum or Plasma T4 FREE/FREE THYROX Lab Routine Well adult exam Screening for thyroid disorder Myalgia Arthralgia, unspecified joint Expected: 01/26/2023, Expires: 03/28/2023 [facility] Work Phone: Comment on above: Expected: 01/26/2023, Expires: Start: 01-26-2023 End: 03-28-2023 Triiodothyronine (T3) [Mass/volume] in Serum or Plasma T3 BLD Lab Routine Well adult exam Screening for thyroid disorder Myalgia Arthralgia, unspecified joint Expected: 01/26/2023, Expires: 03/28/2023 [facility] Work Phone: Comment on above: Expected: 01/26/2023, Expires: 3 Start: 11-19-2022 DEPRESSION ASSESSMENT DEPRESSION ASSESSMENT [facility] Start: 07-20-2022 Influenza vaccination INFLUENZA (#1) [facility] Start: 06-07-2022 End: 08-07-2022 25-hydroxyvitamin D3 [Mass/volume] in Serum or Plasma VITAMIN D 25 HYDROXY Lab Routine Well adult exam Encounter for vitamin deficiency screening Expected: 06/07/2022, Expires: 08/07/2022 [facility] Work Phone: Comment on above: Expected: 06/07/2022, Expires: 2 Start: 06-07-2022 End: 08-07-2022 CBC panel - Blood by Automated count CBC Lab Routine Well adult exam Screening for diabetes mellitus Expected: 06/07/2022, Expires: 08/07/2022 [facility] Work Phone: Comment on above: Expected: 06/07/2022, Expires: 2 Start: 06-07-2022 End: 08-07-2022 Cobalamin (Vitamin B12) [Mass/volume] in Serum or Plasma VITAMIN B12 BLOOD Lab Routine Well adult exam Encounter for vitamin deficiency screening Expected: 06/07/2022, Expires: 08/07/2022 [facility] Work Phone: Comment on above: Expected: 06/07/2022, Expires: 2 Start: 06-07-2022 End: 08-07-2022 Comprehensive metabolic 2000 panel - Serum or Plasma COMP METABOLIC PANEL Lab Routine Well adult exam Screening for diabetes mellitus Expected: 06/07/2022, Expires: 08/07/2022 [facility] Work Phone: Comment on above: Expected: 06/07/2022, Expires: 2 Start: 06-07-2022 End: 08-07-2022 Ferritin [Mass/volume] in Serum or Plasma FERRITIN BLD Lab Routine Chronic insomnia Well adult exam Expected: 06/07/2022, Expires: 08/07/2022 [facility] Work Phone: Comment on above: Expected: 06/07/2022, Expires: 2 Start: 06-07-2022 End: 08-07-2022 Hemoglobin A1c in Blood HGB A1C Lab Routine Well adult exam Screening for diabetes mellitus Expected: 06/07/2022, Expires: 08/07/2022 [facility] Work Phone: Comment on above: Expected: 06/07/2022, Expires: 2 Start: 06-07-2022 End: 08-07-2022 Iron and Iron binding capacity panel - Serum or Plasma IRON + TIBC Lab Routine Chronic insomnia Well adult exam Expected: 06/07/2022, Expires: 08/07/2022 [facility] Work Phone: Comment on above: Expected: 06/07/2022, Expires: 2 Start: 06-07-2022 End: 08-07-2022 Lipid 1996 panel - Serum or Plasma LIPID PANEL BASIC Lab Routine Well adult exam Screening for diabetes mellitus Screening for lipid disorders Expected: 06/07/2022, Expires: 08/07/2022 [facility] Work Phone: Comment on above: Expected: 06/07/2022, Expires: 2 Start: 06-07-2022 End: 08-07-2022 Thyroglobulin and Thyrogobulin Ab panel - Serum or Plasma THYROGLOBULIN BLD Lab Routine Well adult exam Screening for thyroid disorder Sensation of foreign body in throat Expected: 06/07/2022, Expires: 08/07/2022 [facility] Work Phone: Comment on above: Expected: 06/07/2022, Expires: 2 Start: 06-07-2022 End: 08-07-2022 THYROID PEROXIDASE ANTIBODY BLOOD THYROID PEROXIDASE ANTIBODY BLOOD Lab Routine Well adult exam Screening for thyroid disorder Sensation of foreign body in throat Expected: 06/07/2022, Expires: 08/07/2022 [facility] Work Phone: Comment on above: Expected: 06/07/2022, Expires: 2 Start: 06-07-2022 End: 08-07-2022 Thyrotropin [Units/volume] in Serum or Plasma TSH BLD Lab Routine Well adult exam Screening for diabetes mellitus Screening for thyroid disorder Expected: 06/07/2022, Expires: 08/07/2022 [facility] Work Phone: Comment on above: Expected: 06/07/2022, Expires: 2 Start: 06-07-2022 End: 08-07-2022 Thyroxine (T4) free [Mass/volume] in Serum or Plasma T4 FREE/FREE THYROX Lab Routine Well adult exam Screening for thyroid disorder Sensation of foreign body in throat Expected: 06/07/2022, Expires: 08/07/2022 [facility] Work Phone: Comment on above: Expected: 06/07/2022, Expires: 2 Start: 06-07-2022 End: 08-07-2022 Triiodothyronine (T3) [Mass/volume] in Serum or Plasma T3 BLD Lab Routine Well adult exam Screening for thyroid disorder Sensation of foreign body in throat Expected: 06/07/2022, Expires: 08/07/2022 [facility] Work Phone: Comment on above: Expected: 06/07/2022, Expires: 2 Start: 05-16-2022 End: 05-16-2022 Patient encounter procedure Appointment [facility] Work Phone: Start: 04-07-2022 COVID-19 VACCINE (3 - Booster for Pfizer series) COVID-19 VACCINE (3 - Booster for Pfizer series) [facility] Start: 03-14-2022 End: 03-14-2022 Patient encounter procedure Appointment [facility] Work Phone: Start: 01-27-2022 End: 01-27-2022 Patient encounter procedure Appointment [facility] Work Phone: Start: 01-02-2022 COVID-19 VACCINE (3 - Booster for Pfizer series) COVID-19 VACCINE (3 - Booster for Pfizer series) [facility] Start: 11-19-2021 DEPRESSION ASSESSMENT DEPRESSION ASSESSMENT [facility] Start: 11-07-2021 COVID-19 VACCINE (2 - Pfizer 3-dose series) COVID-19 VACCINE (2 - Pfizer 3-dose series) [facility] Start: 2021 HPV TESTING HPV TESTING [facility] Start: 2021 Screening for malignant neoplasm of cervix HPV Testing [facility] Start: 05-03-2020 PAP TESTING PAP TESTING [facility] Start: 05-03-2020 Screening for malignant neoplasm of cervix Pap Testing [facility] Start: 10-02-2019 Adult depression screening assessment DEPRESSION SCREENING [facility] Start: 2012 Screening for malignant neoplasm of cervix CERVICAL CANCER SCREENING DISCUSSION [facility] Start: 2010 ONE PNEUMOVAX PRIOR TO AGE 65 ONE PNEUMOVAX PRIOR TO AGE 66 [facility] Start: 2006 HIV screening HIV SCREENING DISCUSSION [facility] Start: 1997 PNEUMOCOCCAL (1 - PCV) PNEUMOCOCCAL (1 - PCV) [facility] Start: 1997 Pneumococcal vaccination Pneumococcal Vaccine (1 of 2 - PCV) [facility] Start: 1991 HEPATITIS B (1 of 3 - 3-dose series) HEPATITIS B (1 of 3 - 3-dose series) [facility] Start: 1991 Hepatitis C screening HEPATITIS C VIRUS SCREENING [facility] End: 07-07-2023 Ct thorax w/o contrast material CT CHEST WO IVCON Radiology Routine Lung nodules 1 Occurrences starting 06/07/2022 until 07/07/2023 [facility] Work Phone: Comment on above: 1 Occurrences starting 06/07/2022 until 07/07/2023 Ct thorax w/o contra st material CT CHEST WO IVCON Radiology Routine Lung nodules 06/19/2022 11:56 AM EDT [facility] Work Phone: Ecg routine ecg w/le ast 12 lds w/i&r HI ECG ROUTINE ECG W/LEAST 12 LDS W/I&R HI - OFFICE PERFORMED Routine Palpitations Precordial chest pain Shortness of breath Ordered: 12/15/2024 [facility] Comment on above: Ordered: 12/15/2024 Electrocardiogram wi th exercise test ECG, TREADMILL STRESS (NON-IMAGING) Stress Echocardiography Routine Palpitations Precordial chest pain Shortness of breath Ordered: 12/15/2024 [facility] Comment on above: Ordered: 12/15/2024 Influenza virus A an d B RNA and SARS-CoV-2 (COVID-19) N gene panel - Respiratory specimen by KRUPA with probe detection COVID WITH FLUA+B, ROUTINE Microbiology Routine Acute cough Nasal congestion 10/23/2022 11:19 AM EST [facility] Work Phone: End: 07-07-2023 Us soft tissue head & neck real time imge docm US THYROID/PARATHYROID Radiology Routine Dysphagia, unspecified type Sensation of foreign body in throat 1 Occurrences starting 06/07/2022 until 07/07/2023 [facility] Work Phone: Comment on above: 1 Occurrences starting 06/07/2022 until 07/07/2023 [facility] Immunizations Immunization Date Immunization Notes Care Provider Nicholas savage 09-06-2022 influenza virus vaccine, unspecified formulation Gloria Barrera PA-C Work Phone: [facility] 09-10-2019 influenza, injectabl e, quadrivalent, contains preservative Cici Briones RN [facility] Work Phone: 08-06-2017 influenza, injectabl e, quadrivalent, contains preservative Cici Briones RN [facility] 02-19-2017 tetanus toxoid, redu jonn diphtheria toxoid, and acellular pertussis vaccine, adsorbed Cici Briones RN [facility] Work Phone: 09-30-2015 influenza, injectabl e, quadrivalent, contains preservative Cici Briones RN [facility] 10-27-2014 influenza, seasonal, injectable Cici Briones RN [facility] Work Phone: 08-14-2011 influenza virus vaccine, unspecified formulation Cici Briones RN [facility] Payers Date Payer Category Payer Self-pay 2023 Unknown [id number] 2023 Unknown [id number] 2022 Unknown [id number] 2021 Unknown MMO MMO TPA [id number] 2021-Present [address] [place] [address] PPO [id number] 2021 Unknown [id number] 2017 Medicaid [place] [employer] [place] [employer] [id number] 2017-Present [phone] [address] [place] [address] Medicaid [id number] 2017 Medicaid [id number] 1991 Unknown [id number] 1991 Unknown [id number] 1991 Unknown [id number] 1991 Unknown [id number] 1991 Unknown [id number] Unknown [id number] [id number] Unknown [id number] [id number] Unknown [id number] Unknown [id number] [id number] Unknown [id number] [id number] Unknown [id number] [id number] Unknown [id number] [id number] Unknown [id number] [id number] Unknown [id number] [id number] Unknown [id number] [id number] Unknown [id number] Unknown [id number] [id number] Unknown [id number] Unknown [id number] Social History Date Type Detail Facility Start: 01-27-2022 End: 03-14-2022 Assertion Unknown if ever smoked [facility] Work Phone: Start: 10-14-2018 End: 10-13-2022 Tobacco smoking status NHIS Smokes tobacco daily [facility] Work Phone: Start: 12-15-2019 End: 10-19-2008 History of tobacco use Cigarette Smoker [facility] Work Phone: End: 10-19-2008 History of tobacco use Cigar Smoker [facility] Work Phone: Start: 10-14-2018 End: 12-15-2024 Tobacco use and exposure Smokeless tobacco non-user [facility] Work Phone: Start: 09-24-2020 End: 01-20-2024 Alcohol intake Current drinker of alcohol (finding) [facility] Start: 08-18-2020 End: 09-24-2020 History SDOH Alcohol Frequency 2 [facility] Start: 04-23-2020 End: 08-18-2020 History SDOH Alcohol Std Drinks 1 [facility] Start: 10-14-2018 History SDOH Alcohol Comment occasionally-does not drink on weekly basis [facility] Start: 04-23-2020 End: 08-18-2020 History SDOH Social Connections Phone 5 [facility] Start: 08-18-2020 End: 09-24-2020 History SDOH Social Connections Get Together 98 [facility] Start: 04-23-2020 End: 09-24-2020 History SDOH Social Connections Living 3 [facility] Start: 04-23-2020 Education 12 [facility] Start: 10-14-2018 End: 09-29-2022 Tobacco Comment 8 cigars per day-for about 1 month as of 10/14/18-previously smoked cigarettes on & off until 2007 [facility] Start: 1991 Sex Assigned At Not on file [facility] Start: 03-08-2022 End: 10-23-2022 Exposure to SARS-CoV-2 (event) Not sure [facility] Start: 09-19-2022 End: 09-29-2022 Exposure to SARS-CoV-2 (event) Yes [facility] Work Phone: Start: 10-13-2022 End: 12-15-2024 Cigarettes smoked current (pack per day) - Reported 0.5 [facility] Start: 08-18-2020 End: 12-15-2024 Social connection and isolation panel [facility] Frequency of Communication with Friends and Family Not on file [facility] How often to you hav e a drink containing alcohol? Monthly or less [facility] How many standard dr inks containing alcohol do you have on a typical day? 1 or 2 [facility] How often do you hav e 6 or more drinks on 1 occasion? Less than monthly [facility] How hard is it for y ou to pay for the very basics like food, housing, medical care, and heating Somewhat hard [facility] Work Phone: Do you feel stress - tense, restless, nervous, or anxious, or unable to sleep at night because your mind is troubled all the time - these days [OSQ] Very much [facility] (I/We) worried danis er (my/our) food would run out before (I/we) got money to buy more. Often true [facility] Work Phone: The food that (I/we) bought just didn't last, and (I/we) didn't have money to get more. DK or Refused [facility] Work Phone: At any time in the p ast 12 months, were you homeless or living in prison [including now]? No [facility] Start: 12-15-2024 Tobacco smoking status NHIS Ex-smoker [facility] Start: 12-15-2019 History of tobacco use Current smoker [facility] Start: 12-15-2024 Alcoholic beverage intake Ex-drinker (finding) [facility] Start: 12-14-2024 Gender identity Identifies as female gender (finding) [facility] Start: 12-14-2024 Sexual orientation Heterosexual (finding) [facility] Medical Equipment Procedure Code Equipment Code Equipment Origin al Text Equipment Identifier Dates [facility] Rlb - [id number] Start: 12-02-2013 Clinical Notes 08-31-2014 to 12-15-2024 Assessment & Plan Note - Angel Harris MD - 12/15/2024 8:58 AM ESTAssessment & Plan Note - Angel Harris MD - 12/15/2024 8:58 AM ESTAngel Harris MD - 12/15/2024 8:00 AM EST Note Date & Type Note Facility 12-15-2024 Evaluation + Plan note Associated Problem(s): Tobacco use She states she underwent hypnosis in the past to attempt to stop cigarette smoking. She notes that worked for proximally 3 months. She then returned to cigarette smoking. She has been counseled on the importance to discontinue her tobacco intake for both cardiac and noncardiac reasons. [facility] 12-15-2024 Miscellaneous Notes Associated Problem(s): Tobacco use She states she underwent hypnosis in the past to attempt to stop cigarette smoking. She notes that worked for proximally 3 months. She then returned to cigarette smoking. She has been counseled on the importance to discontinue her tobacco intake for both cardiac and noncardiac reasons. Associated Problem(s): Shortness of breath She commented on shortness of breath at various times. Again it does not appear to be classic with respect to being an angina pectoris equivalent. She also has had no obvious findings suggestive of volume overload with CHF or pulmonary edema. Her previous echocardiogram reported normal diastology. She will proceed with further cardiac evaluation. If this is unremarkable then consideration could be given with respect to further evaluation of her shortness of breath with further pulmonary evaluation as she admits to being a cigarette smoker. Associated Problem(s): Precordial chest pain She does have an element of precordial chest pain. It is somewhat atypical. However, it was felt reasonable that she undergo further evaluation with a treadmill stress test. This will also provide additional evaluation with respect to concerns of her underlying cardiac ectopy or cardiac rhythm. Associated Problem(s): Palpitations At the present time she may be experiencing palpitations related to her underlying PACs and PVCs. At the moment she was asked to modify her lifestyle with respect to decreasing and hopefully discontinuing caffeine and nicotine. She does raise concerns of an anxiety component. She will need to continue to follow with her other physicians for this for appropriate evaluation care. She states she has warrant a home O2 sat monitor overnight to evaluate for any obvious evidence of hypoxemia. She states her O2 sat monitor never demonstrated any hypoxic events. If after modifying her lifestyle she continues with symptoms then it may be reasonable to consider an attempt at medical therapy. This could include either beta-william therapy or possibly calcium channel antagonist therapy. documented in this encounter [facility] 12-15-2024 Evaluation + Plan note Associated Problem(s): Shortness of breath She commented on shortness of breath at various times. Again it does not appear to be classic with respect to being an angina pectoris equivalent. She also has had no obvious findings suggestive of volume overload with CHF or pulmonary edema. Her previous echocardiogram reported normal diastology. She will proceed with further cardiac evaluation. If this is unremarkable then consideration could be given with respect to further evaluation of her shortness of breath with further pulmonary evaluation as she admits to being a cigarette smoker. [facility] 12-15-2024 Evaluation + Plan note Associated Problem(s): Precordial chest pain She does have an element of precordial chest pain. It is somewhat atypical. However, it was felt reasonable that she undergo further evaluation with a treadmill stress test. This will also provide additional evaluation with respect to concerns of her underlying cardiac ectopy or cardiac rhythm. [facility] 12-15-2024 Evaluation + Plan note Associated Problem(s): Palpitations At the present time she may be experiencing palpitations related to her underlying PACs and PVCs. At the moment she was asked to modify her lifestyle with respect to decreasing and hopefully discontinuing caffeine and nicotine. She does raise concerns of an anxiety component. She will need to continue to follow with her other physicians for this for appropriate evaluation care. She states she has warrant a home O2 sat monitor overnight to evaluate for any obvious evidence of hypoxemia. She states her O2 sat monitor never demonstrated any hypoxic events. If after modifying her lifestyle she continues with symptoms then it may be reasonable to consider an attempt at medical therapy. This could include either beta-william therapy or possibly calcium channel antagonist therapy. [facility] 12-15-2024 History of Present illness Narrative Images from the original note were not included. Referring provider: Yasmine Beavers MD Primary care provider: No primary care provider on file. Dear Dr. Beavers, I had the pleasure of seeing your patient, Susana Mcclain, at the [facility] on 12/15/2024. I have reviewed pertinent outside medical records available at this time regarding this patient. As you recall, you referred this 34 y.o. female to our attention for palpitations, chest pain, and shortness of breath. Chief Complaint Patient presents with New Patient Palpitations, SOB, recent 7 day Holter HPI: History of Present Illness The patient is a 34-year-old female who presents today for a new [facility] cardiovascular visit based on concerns of palpitations. She recently wore a 7-day Holter monitor and experienced an episode of palpitations characterized by a sensation of her heart skipping beats or fluttering. This episode, which lasted approximately 10 minutes, was longer than her usual episodes and induced anxiety due to associated shortness of breath. She describes the sensation as if her heart is attempting to exit through her neck, accompanied by a brief cessation of her pulse followed by a sudden surge. These episodes are often uncomfortable and frightening, sometimes occurring with minimal exertion such as rolling over in bed. She is uncertain whether these symptoms are related to anxiety or her smoking habit. She also consumes a significant amount of caffeine. She reports no loss of consciousness but does experience vertigo during these episodes, necessitating her to sit down. Additionally, she occasionally experiences sharp chest pain and transient shooting pain radiating down her arm. She recalls an episode of hypokalemia with a potassium level of 3.1, for which she received potassium supplementation in the ER. However, subsequent episodes were not associated with low potassium levels. . The patient admits to smoking and drinking a ton of caffeine. 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 She knows she intermittently has a somewhat sharp chest discomfort that radiates towards her left shoulder and left upper extremity. She states sometimes she can feel short of breath with movements such as rolling over in bed or when she is up and active. There has been no classic orthopnea or PND or peripheral pitting edema. She has had no syncope. She has had previous labs performed in October of 2024. Based upon review of the labs she brings with her her potassium level, magnesium level, and renal function are within normal range. Also she had a TSH level performed which was within normal range. Previous ECGs, echocardiogram, and cardiac monitors available for review are noted below. Based upon those findings she has had underlying sinus rhythm, rare PACs/PVCs, a report of a atrial tachycardia lasting 3 beats. She also had preserved cardiac chamber size and function and LVEF with no significant valvular disease appreciated. In the office today she had an ECG. She was noted to be in normal sinus rhythm. She did have an RSR prime pattern in V1 potentially compatible with an incomplete right bundle branch block. There were no acute electrocardiographic changes. Historical information was reviewed in the medical record. The following historical elements were reviewed by a provider in the specific [facility] wright and updated as appropriate: Allergies Allergen Reactions Amoxicillin Nausea and Vomiting Zithromax [Azithromycin] Rash Outpatient Encounter Medications as of 12/15/2024 Medication Sig Dispense Refill Vraylar 1.5 MG capsule capsule Take 1 capsule by mouth daily. Wellbutrin XL 300 MG tablet XL Take 1 tablet by mouth daily every morning. No facility-administered encounter medications on file as of 12/15/2024. Past Medical History: Diagnosis Date Anemia Depression Past Surgical History: Procedure Laterality Date ACL RECONSTRUCTION Right 2023 REVISION ARTHROPLASTY HIP ACETABULAR COMPONENT ONLY Right Family History Adopted: Yes Social History Socioeconomic History Marital status: Spouse name: Not on file Number of children: Not on file Years of education: Not on file Highest education level: Not on file Occupational History Not on file Tobacco Use Smoking status: Former Current packs/day: 0.50 Average packs/day: 0.5 packs/day for 5.0 years (2.5 ttl pk-yrs) Types: Cigarettes Start date: 12/15/2019 Smokeless tobacco: Never Vaping Use Vaping status: Every Day Substances: THC Devices: Pre-filled or refillable cartridge, Refillable tank Substance and Sexual Activity Alcohol use: Not Currently Drug use: Never Sexual activity: Yes Partners: Male Other Topics Concern Occupational Exposure No Hobby Hazards Yes Comment: Resin/epoxy Social History Narrative Not on file Social Determinants of Health Financial Resource Strain: Medium Risk (09/24/2020) Received from [facility] Overall Financial Resource Strain (CARDIA) Difficulty of Paying Living Expenses: Somewhat hard Food Insecurity: Food Insecurity Present (09/24/2020) Received from [facility] Hunger Vital Sign Worried About Running Out of Food in the Last Year: Often true Ran Out of Food in the Last Year: Patient declined Transportation Needs: No Transportation Needs (09/24/2020) Received from [facility] PRAPARE - Transportation Lack of Transportation (Medical): No Lack of Transportation (Non-Medical): No Physical Activity: Insufficiently Active (08/18/2020) Received from [facility] Exercise Vital Sign Days of Exercise per Week: 5 days Minutes of Exercise per Session: 10 min Stress: Stress Concern Present (04/23/2020) Received from [facility] [place] [employer] - Occupational Stress Questionnaire Feeling of Stress : Very much Social Connections: Unknown (08/18/2020) Received from [facility] Social Connection and Isolation Panel [NHANES] Frequency of Communication with Friends and Family: Not on file Frequency of Social Gatherings with Friends and Family: Patient declined Attends Sikh Services: Not on file Active Member of Clubs or Organizations: Not on file Attends Club or Organization Meetings: Not on file Marital Status: Not on file Intimate Partner Violence: Not on file Housing Stability: High Risk (08/18/2020) Received from [facility] Housing Stability Vital Sign Unable to Pay for Housing in the Last Year: Yes Number of Places Lived in the Last Year: Not on file Unstable Housing in the Last Year: No Review of Systems Cardiovascular: Positive for chest pain and palpitations. Negative for claudication, cyanosis, dyspnea on exertion, irregular heartbeat, leg swelling, near-syncope, orthopnea, paroxysmal nocturnal dyspnea and syncope. Respiratory: Positive for shortness of breath. Neurological: Positive for vertigo. On physcial exam today, the vital signs are as follows: Vitals: 12/15/24 0800 BP: 112/62 Pulse: 58 SpO2: 98% Weight: 85.3 kg (188 lb) Height: 1.753 m (5' 9) Body mass index is 27.76 kg/m . Physical Exam Vitals and nursing note reviewed. Constitutional: Appearance: Normal appearance. She is well-developed, well-groomed and overweight. HENT: Head: Normocephalic and atraumatic. Cardiovascular: Rate and Rhythm: Normal rate and regular rhythm. No extrasystoles are present. Chest Wall: PMI is not displaced. No thrill. Pulses: Carotid pulses are 2+ on the right side and 2+ on the left side. Radial pulses are 2+ on the right side and 2+ on the left side. Posterior tibial pulses are 2+ on the right side and 2+ on the left side. Heart sounds: S1 normal and S2 normal. No murmur heard. No friction rub. No gallop. Pulmonary: Effort: Pulmonary effort is normal. Breath sounds: Normal breath sounds. Abdominal: General: Abdomen is flat. Bowel sounds are normal. Palpations: Abdomen is soft. Musculoskeletal: General: Normal range of motion. Cervical back: Normal range of motion and neck supple. Right lower leg: No edema. Left lower leg: No edema. Skin: General: Skin is warm and dry. Neurological: General: No focal deficit present. Mental Status: She is alert. Psychiatric: Mood and Affect: Mood normal. Relevant diagnostic data includes the following: I have independently reviewed the following reports and/or images/tracings: as noted below. Supplemental Information: ELECTROCARDIOGRAM 03/09/2023 EVENT MONITOR 10/21/2024 [facility] In summary, Ms. Mcclain is managed today for the following issues: Palpitations At the present time she may be experiencing palpitations related to her underlying PACs and PVCs. At the moment she was asked to modify her lifestyle with respect to decreasing and hopefully discontinuing caffeine and nicotine. She does raise concerns of an anxiety component. She will need to continue to follow with her other physicians for this for appropriate evaluation care. She states she has warrant a home O2 sat monitor overnight to evaluate for any obvious evidence of hypoxemia. She states her O2 sat monitor never demonstrated any hypoxic events. If after modifying her lifestyle she continues with symptoms then it may be reasonable to consider an attempt at medical therapy. This could include either beta-william therapy or possibly calcium channel antagonist therapy. Precordial chest pain She does have an element of precordial chest pain. It is somewhat atypical. However, it was felt reasonable that she undergo further evaluation with a treadmill stress test. This will also provide additional evaluation with respect to concerns of her underlying cardiac ectopy or cardiac rhythm. Shortness of breath She commented on shortness of breath at various times. Again it does not appear to be classic with respect to being an angina pectoris equivalent. She also has had no obvious findings suggestive of volume overload with CHF or pulmonary edema. Her previous echocardiogram reported normal diastology. She will proceed with further cardiac evaluation. If this is unremarkable then consideration could be given with respect to further evaluation of her shortness of breath with further pulmonary evaluation as she admits to being a cigarette smoker. Tobacco use She states she underwent hypnosis in the past to attempt to stop cigarette smoking. She notes that worked for proximally 3 months. She then returned to cigarette smoking. She has been counseled on the importance to discontinue her tobacco intake for both cardiac and noncardiac reasons. Of note, she did present information with respect to her lipid labs performed in the past. It appeared she had a cholesterol of a proximally 213 with an LDL of 142 and an HDL of 48. She was counseled on the importance of dietary modification and exercise to try and continue to bring her lipids under better control in order to bring her overall cardiovascular risks under better control, etc.. I have ordered the following: Diagnoses and all orders for this visit: Palpitations - HI ECG ROUTINE ECG W/LEAST 12 LDS W/I&R - ECG, TREADMILL STRESS (NON-IMAGING) Precordial chest pain - HI ECG ROUTINE ECG W/LEAST 12 LDS W/I&R - ECG, TREADMILL STRESS (NON-IMAGING) Shortness of breath - HI ECG ROUTINE ECG W/LEAST 12 LDS W/I&R - ECG, TREADMILL STRESS (NON-IMAGING) Tobacco use The above was discussed and reviewed with her. She was agreeable to this approach. Depending upon her future clinical course, results of her studies, etc. consideration will be given as to the need for continued cardiovascular evaluation and care. In the interim she was asked to continue to follow with her primary care physician. We will plan on Return if symptoms worsen or fail to improve.. If I can be of any further assistance, please do not hesitate to contact me. Sincerely, Angel Harris MD, [facility] Machine Tool Rebuilder - Clinical Division of Cardiovascular Medicine Department of Internal Medicine [facility] Please be aware that portions of this note may have been completed with a voice recognition software system and an artificial intelligence system with the knowledge and approval of the patient. Despite efforts to edit the note mis-transcribed words may still be present. 12 Lead EKG performed per provider's order, per policy, and given to Steven for interpretation. Medical tourist agent offered to patient prior to sensitive procedure and patient declined KATE documentation tool explained to patient. Patient accepted the use of KATE documentation tool during today's visit. documented in this encounter [facility] 01-22-2024 Miscellaneous Notes Patient notified her that her antibiotic was not effective did call doxycycline and patient will get that picked up and started right away. documented in this encounter [facility] 01-20-2024 Note HNO ID: [id number] Author: GLORIA BARRERA PA-C Service: ? Author Type: Physician Ceramic Saw Tender Type: Progress Notes Filed: 01/20/2024 12:09 Note Text: This note was created using [employer] Natural Haircare[employer]. Subjective Susana Mcclain is a 33 year old female. HPI Presents with a chief complaint of a possible infection in her right alvarez area. She had ACL reconstruction by [facility] on December 31. She states the past 2-3 days the wound below her knee seem to have opened up and she has had some drainage. No fever. Denies history of MRSA. Otherwise has not had increased pain in the knee. She states she has been attending physical therapy. She does have a session tomorrow at her orthopedic office. Review of Systems Constitutional: Negative. HENT: Negative. Musculoskeletal: Right alvarez infection All other systems reviewed and are negative. PAST MEDICAL HISTORY Diagnosis Date ASCUS with positive high risk HPV 10/31/13 Genital herpes Patellofemoral syndrome PMH - PAST MEDICAL HISTORY OF AGE 11 MENEINGITIS depression Varicosities RIGHT LEG AND PERINEAL Current Outpatient Medications Medication Sig Dispense Refill atomoxetine (STRATTERA) 40 mg capsule QUEtiapine (SEROQUEL) 200 mg tablet Take 1 tablet by mouth daily at bedtime. (Patient taking differently: Take 100 mg by mouth daily at bedtime.) 30 tablet 2 ibuprofen (MOTRIN) 600 mg tablet Take one tablet , with food , every 12 hours for 7 days post vein procedure. 14 tablet 0 cephALEXin (KEFLEX) 500 mg capsule Take 1 capsule by mouth four times daily for 7 days. 28 capsule 0 gabapentin (NEURONTIN) 300 mg capsule Take 1 capsule by mouth three times daily for 30 days. 90 capsule 2 omeprazole (PRILOSEC) 20 mg capsule Take 1 capsule by mouth daily before breakfast. 1/2 hr before meal. (Patient not taking: Reported on 01/20/2024) 30 capsule 2 No current facility-administered medications for this visit. PAST SURGICAL HISTORY Procedure Laterality Date LIG/TRNSXJ FLP TUBE ABDL/VAG APPR UNI/BI PAST SURGICAL HISTORY OF WISDOM TEETH PAST SURGICAL HISTORY OF Right laser treatment for varicose veins VAGINOSCOPY 12/17/13 MARIOLA 1 FAMILY HISTORY Adopted: Yes Problem Relation Age of Onset Depression Mother Bipolar disorder Mother Alcohol/Drug Mother Hypertension Mother Lipids Mother other (Unknown) Father Asthma Brother Cancer Maternal Uncle LUNG CANCER Cancer Maternal Grandmother Cancer Maternal Grandfather Social History Tobacco Use Smoking status: Every Day Packs/day: 0.50 Years: 1.00 Additional pack years: 0.00 Total pack years: 0.50 Types: Cigarettes Last attempt to quit: 10/19/2008 Years since quittin.2 Smokeless tobacco: Never Tobacco comments: 8 cigars per day-for about 1 month as of 10/14/18-previously smoked cigarettes on AND off until 2007 Substance Use Topics Alcohol use: Yes Comment: occasionally-does not drink on weekly basis Drug use: No Objective BP 122/80 Pulse 100 Temp 37 ?C (98.6 ?F) Resp 21 Wt 88.4 kg (194 lb 12.8 oz) LMP 09/20/2022 SpO2 98% BMI 27.89 kg/m? Physical Exam Vitals reviewed. Constitutional: Appearance: Normal appearance. HENT: Head: Normocephalic and atraumatic. Musculoskeletal: Legs: Comments: Patient does have healing surgical wounds about the anterior right knee. Below the knee on the anterior tibia it does appear 1 of these wounds has open and she does have some drainage. There is no significant surrounding erythema. No lymphangitic streaking. No sign of joint infection . Skin: General: Skin is warm and dry. Neurological: Mental Status: She is alert. Assessment and Plan ASSESSMENT/PLAN: 1. Surgical wound infection - ICD9: 998.59, ICD10: T81.49XA I did obtain a wound culture and will treat with Keflex. Discussed red flags to be seen in the ER otherwise would recommend close follow-up with orthopedic. Patient agreeable with plan. - ABSCESS AND WOUND CULTURE WITH GRAM STAIN Gloria Barrera PA-C [facility] 01-20-2024 History of Present illness Narrative Images from the original note were not included. This note was created using Zipideeter. Subjective Susana Mcclain is a 33 year old female. HPI Presents with a chief complaint of a possible infection in her right alvarez area. She had ACL reconstruction by [facility] on December 31. She states the past 2-3 days the wound below her knee seem to have opened up and she has had some drainage. No fever. Denies history of MRSA. Otherwise has not had increased pain in the knee. She states she has been attending physical therapy. She does have a session tomorrow at her orthopedic office. Review of Systems Constitutional: Negative. HENT: Negative. Musculoskeletal: Right alvarez infection All other systems reviewed and are negative. PAST MEDICAL HISTORY Diagnosis Date ASCUS with positive high risk HPV 10/31/13 Genital herpes Patellofemoral syndrome PMH - PAST MEDICAL HISTORY OF AGE 11 MENEINGITIS depression Varicosities RIGHT LEG AND PERINEAL Current Outpatient Medications Medication Sig Dispense Refill atomoxetine (STRATTERA) 40 mg capsule QUEtiapine (SEROQUEL) 200 mg tablet Take 1 tablet by mouth daily at bedtime. (Patient taking differently: Take 100 mg by mouth daily at bedtime.) 30 tablet 2 ibuprofen (MOTRIN) 600 mg tablet Take one tablet , with food , every 12 hours for 7 days post vein procedure. 14 tablet 0 cephALEXin (KEFLEX) 500 mg capsule Take 1 capsule by mouth four times daily for 7 days. 28 capsule 0 gabapentin (NEURONTIN) 300 mg capsule Take 1 capsule by mouth three times daily for 30 days. 90 capsule 2 omeprazole (PRILOSEC) 20 mg capsule Take 1 capsule by mouth daily before breakfast. 1/2 hr before meal. (Patient not taking: Reported on 01/20/2024) 30 capsule 2 No current facility-administered medications for this visit. PAST SURGICAL HISTORY Procedure Laterality Date LIG/TRNSXJ FLP TUBE ABDL/VAG APPR UNI/BI PAST SURGICAL HISTORY OF WISDOM TEETH PAST SURGICAL HISTORY OF Right laser treatment for varicose veins VAGINOSCOPY 12/17/13 MARIOLA 1 FAMILY HISTORY Adopted: Yes Problem Relation Age of Onset Depression Mother Bipolar disorder Mother Alcohol/Drug Mother Hypertension Mother Lipids Mother other (Unknown) Father Asthma Brother Cancer Maternal Uncle LUNG CANCER Cancer Maternal Grandmother Cancer Maternal Grandfather Social History Tobacco Use Smoking status: Every Day Packs/day: 0.50 Years: 1.00 Additional pack years: 0.00 Total pack years: 0.50 Types: Cigarettes Last attempt to quit: 10/19/2008 Years since quittin.2 Smokeless tobacco: Never Tobacco comments: 8 cigars per day-for about 1 month as of 10/14/18-previously smoked cigarettes on & off until 2007 Substance Use Topics Alcohol use: Yes Comment: occasionally-does not drink on weekly basis Drug use: No Objective BP 122/80 Pulse 100 Temp 37 C (98.6 F) Resp 21 Wt 88.4 kg (194 lb 12.8 oz) LMP 09/20/2022 SpO2 98% BMI 27.89 kg/m Physical Exam Vitals reviewed. Constitutional: Appearance: Normal appearance. HENT: Head: Normocephalic and atraumatic. Musculoskeletal: Legs: Comments: Patient does have healing surgical wounds about the anterior right knee. Below the knee on the anterior tibia it does appear 1 of these wounds has open and she does have some drainage. There is no significant surrounding erythema. No lymphangitic streaking. No sign of joint infection . Skin: General: Skin is warm and dry. Neurological: Mental Status: She is alert. Assessment and Plan ASSESSMENT/PLAN: 1. Surgical wound infection - ICD9: 998.59, ICD10: T81.49XA I did obtain a wound culture and will treat with Keflex. Discussed red flags to be seen in the ER otherwise would recommend close follow-up with orthopedic. Patient agreeable with plan. - ABSCESS AND WOUND CULTURE WITH GRAM STAIN Gloria Barrera PA-C documented in this encounter [facility] 09-15-2023 Note . MICRO - Microbiology PROCEDURE: [...] Locations *1: This test was performed at: [address], [facility] , [facility]) 03-05-2023 Miscellaneous Notes Patient has been identified [...] LPN documented in this encounter [facility] 02-09-2023 Miscellaneous Notes Pt called and is [...] in the vitamin section. No other concerns. Marco Antonio Costa APRN.CNP documented in this encounter [facility] 02-05-2023 Note HNO ID: [id number] Author: Deneen Rolon APRN.CNP Service: ? Author Type: Nurse Practitioner Type: Progress Notes Filed: 02/05/2023 10:42 AM Note Text: Patient did not log in for her virtual visit with the provider today. She did not answer her phone when she was contacted prior to the appointment time. [facility] 02-05-2023 History of Present illness Narrative Patient did not log in for her virtual visit with the provider today. She did not answer her phone when she was contacted prior to the appointment time. documented in this encounter [facility] 01-26-2023 Note HNO ID: [id number] Author: Marco Antonio Costa APRN.CNP Service: ? Author Type: Nurse Practitioner Type: Progress Notes Filed: 01/26/2023 4:02 PM Note Text: Chief Complaint Patient presents with: Pain, Back: Lower back, Abcess drained in Er - October 2022 HPI Susana Mcclain is a 32 year old female who presents here today for Above Complaints.. Today: Had abscess drained that was right by her tailbone in ED at [facility] on 10/2022. Seems to come back intermittently, [...] Grandfather Patient Allergies ALLERGIES Allergen Reactions Z Abdulaziz [Azithromycin] Rash Current Medications Current Outpatient Medications [...] improvement with omepraz (more content not included)... [facility] 01-26-2023 Instructions Marco Antonio Costa APRN.DIRECTOR OF CLAIMS - 01/26/2023 2:11 PM EST Schedule with general surgery. Have your labs drawn. Start the omeprazole and take daily to see if this may be heartburn giving you this feeling in your throat. documented in this encounter [facility] 01-26-2023 History of Present illness Narrative Chief Complaint Patient presents with: Pain, Back: Lower back, Abcess drained in Er - October 2022 HPI Susana Mcclain is a 32 year old female who presents here today for Above Complaints.. Today: Had abscess drained that was right by her tailbone in ED at [facility] on 10/2022. Seems to come back intermittently, [...] Grandfather Patient Allergies ALLERGIES Allergen Reactions Z Abdulaziz [Azithromycin] Rash Current Medications Current Outpatient Medications [...] BLOOD - CCP ANTIBODY IGG - ANTI MARIPSOA ID - RHEUMATOID FACTOR BL - TSH [...] FREE/FREE THYROX - THYROID PEROXIDASE ANTIBODY BLOOD Marco Antonio Costa APRN.EMERSON documented in this encounter [facility] 12-18-2022 Instructions Deneen Rolon APRN.CNP - 12/18/2022 9:47 AM EST Liana Meza, It was good to talk with you today. Below is a summary of the plan that we discussed during your appointment for reference. Of course, if you have any questions or concerns do not hesitate to reach out to me via a message or call. Best, Deneen Rolon APRN.EMERSON PLAN AND FOLLOW UP: YOU SHOULD SEEK [...] - Call the National Suicide Hotline at 4-769-CSVWRNJ ( ) or 5-660-437-TALK (7107) - Text 4HOPE to 562047 Medication Update: Seroquel 200 mg - take 1 tablet at bedtime. Gabapentin 300 mg - take 1 capsule three times a day. Utilize xanax only as needed for overwhelming episodes of anxiety and panic. Next appointment: --Schedule in 6 to 8 weeks or sooner if needed -- You may call the department appointment line at [phone] to schedule your appointment. -- Please call my nurse Ayanna at [phone] or send me a message in [employer] with any questions or concerns between appointments. documented in this encounter [facility] 12-18-2022 History of Present illness Narrative Images from the original note [...] to fix me and everything that I do. 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 Interval Progress: Slightly improved Risks and benefits [...] which included preparing to see the patient, [id number] patient care, completing clinical documentation, and counseling and educating the patient/family/caregiver, ordering medications/labs. Deneen Rolon APRN.DIRECTOR OF CLAIMS December 18, 2022 9:30 AM This note was partially generated using ONtheAIR voice recognition system. Note was reviewed for accuracy. There may be minor misspellings or grammar miscues with [employer]IR voice recognition. documented in this encounter [facility] 11-14-2022 Instructions Deneen Rolon APRN.CNP - 11/14/2022 8:58 AM EST Liana Meza, It was good to talk with you today. Below is a summary of the plan that we discussed during your appointment for reference. Of course, if you have any questions or concerns do not hesitate to reach out to me via a message or call. Best, Deneen Rolon APRN.CNP PLAN AND FOLLOW UP: YOU SHOULD SEEK [...] - Call the National Suicide Hotline at 0-448-NCMAILA ( ) or 4-836-222-TALK (2846) - Text 4HOPE to 911185 Medication Update: Stop Trazodone Seroquel 150 mg - take 1 tablet every night at bedtime. Gabapentin 100 mg - take 1 capsules three times daily. Utilize xanax only as needed for overwhelming episodes of anxiety. Next appointment: --Schedule in 4 weeks or sooner if needed -- You may call the department appointment line at [phone] to schedule your appointment. -- Please call my nurse Ayanna at [phone] or send me a message in [employer] with any questions or concerns between appointments. documented in this encounter [facility] 11-14-2022 History of Present illness Narrative Images from the original note [...] doing good. Things have been a little better. She has been able to get up [...] which included preparing to see the patient, [id number] patient care, completing clinical documentation, and counseling and educating the patient/family/caregiver, ordering medications/labs. Deneen Rolon APRN.EMERSON November 14, 2022 8:27 AM This note was partially generated using ONtheAIR voice recognition system. Note was reviewed for accuracy. There may be minor misspellings or grammar miscues with [employer] voice recognition. documented in this encounter [facility] 10-23-2022 Miscellaneous Notes Patient returned call. She is at [facility] ER at this time. Jasmina Blue RN Attempted to call pt and went to . Left message on secure informing pt of DR. Saba message. Pt is to call office to confirm she received message. Marilin Garner Ma I didn't evaluate patient, if the pain is this severe, she needs to go to the EMERGENCY DEPARTMENT. Rober Saba DO Pt calls to report that she was seen in [facility] Care today and is waiting on [...] this pain. Please review and advise. Flor Pdagett LPN documented in this encounter [facility] 10-23-2022 History of Present illness Narrative 10/23/2022 Patient presents with: Head Congestion: Cough, sinus pain and pressure, HAMMOND, fever x4 days SUBJECTIVE: This is a 32 year old that is here today for Complaint(s) of head congestion and sinus pressure with fever x 4 days. Tmax 102. + body aches and fatigue associated. Notes cough. Daughter was positive for flu A 5 days ago. Patient did have a flu shot this year, already had flu B last month. Denies SOB, wheezing, vomiting, diarrhea, chest pain. . PAST MEDICAL HISTORY Diagnosis Date ASCUS with positive high risk HPV 10/31/13 Genital herpes Patellofemoral syndrome PMH - PAST MEDICAL HISTORY OF AGE 11 MENEINGITIS depression Varicosities RIGHT LEG AND PERINEAL ALLERGIES Z Abdulaziz [Azithromycin] MEDICATIONS Current Outpatient Medications Medication Sig QUEtiapine (SEROQUEL) 50 mg tablet Take 1 tablet by mouth daily at bedtime. traZODone (DESYREL) 100 mg tablet Take 1 tablet by mouth daily at bedtime. ALPRAZolam (XANAX) 0.25 mg tablet Take 1 tablet by mouth at bedtime as needed for up to 30 days. metoprolol succinate ER (TOPROL XL) 25 mg 24 hr tablet Cholecalciferol, Vitamin D3, 125 mcg (5,000 unit) cap Take 1 capsule by mouth once daily. ibuprofen (MOTRIN) 600 mg tablet Take one tablet , with food , every 12 hours for 7 days post vein procedure. No current facility-administered medications for this visit. SOCIAL HISTORY Social History Tobacco Use Smoking status: Every Day Packs/day: 0.50 Years: 1.00 Pack years: 0.50 Types: Cigarettes Last attempt to quit: 10/19/2008 Years since quittin.0 Smokeless tobacco: Never Tobacco comments: 8 cigars per day-for about 1 month as of 10/14/18-previously smoked cigarettes on & off until 2007 Substance Use Topics Alcohol use: Yes Comment: occasionally-does not drink on weekly basis Drug use: No REVIEW OF SYSTEMS See HPI OBJECTIVE: BP 124/86 Pulse 84 Temp 37.6 C (99.6 F) Resp 20 Wt 84.9 kg (187 lb 3.2 oz) LMP 09/20/2022 SpO2 99% BMI 26.80 kg/m APPEARANCE alert, in no acute distress, well-hydrated, well nourished. EYES PERRLA, conjunctiva and sclera normal. EARS External ears normal, canals clear. TMs normal VICENTA NOSE/SINUS Nares normal. Septum midline. Mucosa normal. No drainage or sinus tenderness. THROAT normal, no erythema NECK Supple, no adenopathy; HEART RRR with normal S1 and S2, LUNG clear to auscultation, No wheezing, rhonchi, rales. ASSESSMENT/PLAN: 1. Acute cough - ICD9: 786.2, ICD10: R05.1 (primary diagnosis) Supportive care with fliuds, rest, OTC cough/cold meds prn Reviewed red flags and when to seek care sooner. R/o COVID/Flu, + exposure to flu A - COVID WITH FLUA+B, ROUTINE F/u in 5-7 days if not improving, sooner if worsening 2. Nasal congestion - ICD9: 478.19, ICD10: R09.81 As above - COVID WITH FLUA+B, ROUTINE The patient indicates understanding of these issues and agrees with the plan. Chani Vaughn PA-C documented in this encounter [facility] 10-23-2022 Miscellaneous Notes Triage protocol recommended: PCP evaluation within 24 hours. Pt agreeable to Express Care today. Judy Ly RN Reason for Disposition Fever present > 3 days (72 hours) Answer Assessment - Initial Assessment Questions 1. ONSET: Sunday10/20/22 2. SEVERITY: frequent cough but not severe 3. SPUTUM: yes, color not described 4. HEMOPTYSIS: no 5. DIFFICULTY BREATHING: no 6. FEVER: yes, today 100.1 7. CARDIAC HISTORY: no 8. LUNG HISTORY: see history 9. PE RISK FACTORS: see history 10. OTHER SYMPTOMS: +fever, +nasal congestion, +muscle aches-feels stiff-especially lower neck and shoulders, +nausea, +mild dizziness when stands up. Denies SOB, chest pressure or chest pain, vomiting, diarrhea or sore throat. Reports daughter has flu last week. 11. : no 12. TRAVEL: no Protocols used: Cough - Acute [id number] documented in this encounter [facility] 10-13-2022 Instructions Deneen Rolon APRN.CNP - 10/13/2022 2:08 PM EST Liana Meza, It was good to meet and talk with you today. Below is a summary of the plan that we discussed during your appointment for reference. Of course, if you have any questions or concerns do not hesitate to reach out to me via a message or call. Best, Deneen Rolon APRN.DIRECTOR OF CLAIMS PLAN AND FOLLOW UP: YOU SHOULD SEEK [...] - Call the National Suicide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 use: Yes Comment: occasionally-does not drink on weekly basis Drug use: No Review of Symptoms REVIEW OF SYSTEMS see HPI, otherwise negative EXAM: BP 118/78 (BP Site: Left Arm, BP Position: Sitting, BP Cuff Size: Regular Adult) Pulse 107 Ht 178 cm (5' 10.08) Wt 85.2 kg (187 lb 12.8 oz) LMP 12/16/2019 SpO2 97% BMI 26.89 kg/m General Appearance: Well appearing, alert, in no acute distress, well-hydrated, well nourished.. Skin: Skin color, texture, turgor normal, no suspicious rashes or lesions. Head: Normocephalic, no masses, lesions, tenderness or abnormalities. Eyes: Anicteric sclera. Pupils are equally round and reactive to light. Extraocular movements are intact. . Ears: External ears normal, canals clear. Nose/Sinuses: Nares normal, septum midline, mucosa normal, no drainage or sinus tenderness. Oropharynx: Lips, mucosa, and tongue normal, teeth and gums normal, oropharynx normal. Neck: Supple, no adenopathy; thyroid symmetric, normal size, no bruits. Lungs: Lungs clear to auscultation. No wheezing, rhonchi, rales.. Heart: RRR without murmur, gallop, or rubs. No ectopy. Abdomen: Normal abdominal exam, Abdomen soft, non-tender. Bowel sounds normal. No masses, organomegaly. Extremities: No deformities, edema, skin discoloration, clubbing or cyanosis. Good capillary refill. . Musculoskeletal: No joint swelling, deformity, or tenderness. Peripheral Pulses: Normal. Neurologic: Gait normal. Reflexes normal and symmetric. Sensation grossly intact.. Lymph Nodes: No cervical lymphadenopathy and No supraclavicular lymphadenopathy. Psychiatric: pleasant, cooperative, denies SI/HI. Health Maintenance List PNEUMOCOCCAL(1 - PCV) Never done DEPRESSION SCREENING due on 10/02/2019 PAP TESTING due on 05/03/2020 HPV TESTING due on 2021 COVID-19 VACCINE(3 - Booster for Pfizer series) due on 04/07/2022 INFLUENZA(1) due on 07/20/2022 DTAP,TDAP,TD(2 - Td or Tdap) due on 02/19/2027 HEPATITIS C SCREENING Completed HIV SCREENING Completed Data reviewed Previous records, office notes ASSESSMENT/PLAN: 1. Well adult exam - ICD9: V70.0, ICD10: Z00.00 (primary diagnosis) - Counseled on healthy diet and regular exercise - Calcium intake with supplements or by diet of 1000 mg/day for under 50, 8805-3065 mg/day for 50+ - Smoking cessation encouraged; discussed risks to health and quitting strategies. Patient is not ready to quit - CBC - COMP METABOLIC PANEL - HGB A1C - TSH BLD - LIPID PANEL BASIC - IRON + TIBC - FERRITIN BLD - VITAMIN D 25 HYDROXY - VITAMIN B12 BLOOD - T3 BLD - T4 FREE/FREE THYROX - THYROID PEROXIDASE ANTIBODY BLOOD - THYROGLOBULIN BLD 2. Agoraphobia - ICD9: 300.22, ICD10: F40.00 - ARIPIPRAZOLE 5 MG TABLET 3. Bipolar disorder, in partial remission, most recent episode depressed (HCC) - ICD9: 296.55, ICD10: F31.75 - TRAZODONE 100 MG TABLET - ARIPIPRAZOLE 5 MG TABLET 4. Chronic insomnia - ICD9: 780.52, ICD10: F51.04 - TRAZODONE 100 MG TABLET - ZOLPIDEM 5 MG TABLET - IRON + TIBC - FERRITIN BLD 5. Lung nodules - ICD9: 793.19, ICD10: R91.[address] 2 years prior. - CT CHEST WO IVCON 6. Screening for diabetes mellitus - ICD9: V77.1, ICD10: Z13.1 - TRAZODONE 100 MG TABLET - CBC - COMP METABOLIC PANEL - HGB A1C - TSH BLD - LIPID PANEL BASIC 7. Screening for thyroid disorder - ICD9: V77.0, ICD10: Z13.29 - TSH BLD - T3 BLD - T4 FREE/FREE THYROX - THYROID PEROXIDASE ANTIBODY BLOOD - THYROGLOBULIN BLD 8. Screening for lipid disorders - ICD9: V77.91, ICD10: Z13.220 - LIPID PANEL BASIC 9. Dysphagia, unspecified type - ICD9: 787.20, ICD10: R13.10 - US THYROID/PARATHYROID 10. Sensation of foreign body in throat - ICD9: 784.99, ICD10: R09.89 - US THYROID/PARATHYROID - T3 BLD - T4 FREE/FREE THYROX - THYROID PEROXIDASE ANTIBODY BLOOD - THYROGLOBULIN BLD 11. Encounter for vitamin deficiency screening - ICD9: V77.99, ICD10: Z13.21 - VITAMIN D 25 HYDROXY - VITAMIN B12 BLOOD Marco Antonio Costa APRN.DIRECTOR OF CLAIMS documented in this encounter [facility] 05-31-2022 History of Present illness Narrative 32 year old female presents for abscess in rectum Patient is experiencing a pilonidal cyst, that is not treated here in the express care. Patient offered to schedule with surgery in morning, States she is in too much pain and uncomfortable Sent to ED documented in this encounter [facility] 05-31-2022 Miscellaneous Notes Noted. Agree with below. Thuy Bonilla APRN.DIRECTOR OF CLAIMS Patient calling with painful, draining sore on coccyx area that has been present for a couple weeks. She tried draining it recently and it feels worse. She is unable to see the area to describe size, color or drainage. She states it is painful. Denies fever/chills. She says I think it's an abscess. Advised Urgent Care evaluation tonight if possible and let patient know that if needed she would be referred to ER for further treatment. She is agreeable. Jasmina Blue RN Reason for Disposition [1] Small red streak or spreading redness (<2 inches; 5 cm) AND [2] no fever Answer Assessment - Initial Assessment Questions 1. APPEARANCE of SORES: She is unable to describe appearance 2. NUMBER: one sore on tailbone 3. SIZE: dime to jodee sized hardened area with drainage 4. LOCATION: on tailbone 5. ONSET: a couple of weeks ago 6. CAUSE: she states the sore area appeared after she wore tight underwear 7. OTHER SYMPTOMS: Denies fever, chills, weakness. States the area is painful Protocols used: [id number] documented in this encounter [facility] 03-18-2022 History of Present illness Narrative Visit Summary for Susana Mcclain - Gender: Female - Date of : 1990 Date: - Duration: 3 minutes Patient: Susana Mcclain Provider: Phillip Cleveland Patient Contact Information Address [address] [place] [id number] [phone] Visit Topics I ve been sick for two weeks. [Added By: Self - 2022-03-18] Triage Questions REQUIRED: Do you have Medicare or Medicaid Insurance?Answer [Medicaid] Do you have a cough, shortness of breath, difficulty breathing, fever, chills, headache, sore throat, muscles aches, acute change in smell or taste?Answer [] Have you been in contact with anyone confirmed with COVID 19 or suspected of having COVID 19 within the past 14 days?Answer [] Do you have any vulnerable family members in the home (, , weak immune system, lung disease, active cancer, elderly)?Answer [] Do you have any of the following: weak immune system, asthma or chronic lung disease, kidney problems and on dialysis, active cancer, diabetes or heart disease or high blood pressure, HIV or organ transplant?Answer [] Are you currently working in a healthcare facility?Answer [] What is the address where you are currently located? This is important in case of a medical emergency.Answer [] Please enter a number I can contact you in the event we are disconnected.Answer [] Conversation Transcripts [Notification] You are connected with Phillip Cleveland, Adult Medicine.[Notification] Susana Mcclain is located in [place].[Notification] Susana Mcclain has shared health history... Diagnosis Acute sinusitis, unspecified Value: J01.90 Code: ICD-10-CM Diarrhea, unspecified Value: R19.7 Code: ICD-10-CM Nausea with vomiting, unspecified Value: R11.2 Code: ICD-10-CM Procedures Value: [address] Code: CPT-4 OFFICE/OUTPATIENT VISIT EST Value: [id number] Code: CPT-4 OL DIG E/M SVC 11-20 MIN Medications Prescribed No prescriptions ordered Provider Notes We strongly encourage you to share the following record of today's visit with your primary care physician. Contact phone number: Mode of Communication: HPI:31 YO F SINUS X 2 WKSJUST COMPLETED A ROUND O F ABX AUGMENTIN 4 22 TIL NOW. APPETITE DOWN. NO FEVER. HAS NAUSEA ANDVOMITDIARRHEA TOONOT PREG OR BFNO BLOOD. NO FEVER HAS A PCPPMH:NONEMeds:TRAMADOL PRN. Allergies:ZITHROMAXLMP LAST WEEK NO T PREG OR BFExam: Gen: Alert, normal mental status and interaction, no visible distress, non- toxic appearance. LUNGS RESP UNLABORED OP NOT ADEQ SEEN ONLINEABD ND, NONTOXIC, NO JAUNDICEAssessment: Plan FAILED ABX NOW WITH GI SYMPTOMS GO TO LOCAL URGENT CARE CLINIC NOW INPERSON WITH DRIVERDO NOT DELAY NEEDS INPERSON VITAL SIGNS, ABDOMINAL EXAM HEENT EXAM , ABDOMINAL EXAM STOOL STUDIES AND MORERULE OUT SERIOUS ILLNESS BEYOND SCOPE OF INTERNET VISITPatient voiced understanding and agrees to plan. Electronically signed by: Phillip Cleveland( ) documented in this encounter [facility] 03-18-2022 Miscellaneous Notes Reason for Call: Patient having chills, fatigue, cough, congestion, runny nose, diarrhea and nausea. Diagnosed with a sinus infection on 02/26, finished antibiotics. Outcome: Recommended patient call a PCP within 24 hours. Express care online information given to patient. Reason for Disposition [1] Continuous (nonstop) coughing interferes with work or school AND [2] no improvement using cough treatment per Care Advice Answer Assessment - Initial Assessment Questions 1. COVID-19 DIAGNOSIS: No diagnosis 2. COVID-19 EXPOSURE: No known exposure 3. ONSET: Symptoms started on 02/26. Patient was diagnosed with a sinus infections, prescribed amoxicillin. Finished antibiotics. Symptoms never completely went away and now getting worse today. 4. WORST SYMPTOM: Nausea 5. COUGH: Cough present, productive, yellow 6. FEVER: No fever 7. RESPIRATORY STATUS: No wheezing 8. UXBUAU-ITTC-NLOXK: Worse, nausea present now and also having chills 10. VACCINE: Yes, Pfizer 11. BOOSTER: Denies 12. : Denies 13. OTHER SYMPTOMS: Chills, fatigue, cough, congestion, runny nose, diarrhea and nausea 14. O2 SATURATION MONITOR: 98% on RA Patient was test for the flu and covid on 02/26 both were negative Protocols used: CORONAVIRUS (COVID-19) DIAGNOSED OR [id number] documented in this encounter [facility] 08-31-2014 History of Past i llness Narrative Problem Noted Date Resolved Date Unspecified disorder [...] of carrier of genetic disease 09/201312/17/2013 Overview: 04/04/2013Pt states she is a carrier of sickle [...] encounter (statuses as of 03/18/2022) [facility] History of Past illness Narrative* Problem Noted [...] encounter (statuses as of 03/19/2022) [facility] of Past illness Narrative* Problem Noted [...] encounter (statuses as of 05/31/2022) [facility] of Past illness Narrative* Problem Noted [...] encounter (statuses as of 05/31/2022) [facility] of Past illness Narrative* Problem Noted [...] encounter (statuses as of 06/07/2022) [facility] of Past illness Narrative* Problem Noted [...] encounter (statuses as of 06/15/2022) [facility] of Past illness Narrative* Problem Noted [...] encounter (statuses as of 06/20/2022) [facility] of Past illness Narrative* Problem Noted [...] encounter (statuses as of 06/22/2022) [facility] of Past illness Narrative* Problem Noted [...] encounter (statuses as of 06/22/2022) [facility] of Past illness Narrative* Problem Noted [...] encounter (statuses as of 06/23/2022) [facility] of Past illness Narrative* Problem Noted [...] encounter (statuses as of 07/03/2022) [facility] of Past illness Narrative* Problem Noted [...] encounter (statuses as of 07/03/2022) [facility] of Past illness Narrative* Problem Noted [...] encounter (statuses as of 09/29/2022) [facility] of Past illness Narrative* Problem Noted [...] encounter (statuses as of 10/21/2022) [facility] of [facility] illness Narrative* Problem Noted [...] encounter (statuses as of 10/23/2022) [facility] of [facility] illness Narrative* Problem Noted [...] encounter (statuses as of 10/23/2022) [facility] of [facility] illness Narrative* Problem Noted [...] encounter (statuses as of 11/19/2022) [facility] of [facility] illness Narrative* Problem Noted [...] encounter (statuses as of 12/18/2022) [facility] of [facility] illness Narrative* Problem Noted [...] encounter (statuses as of 01/26/2023) [facility] of [facility] illness Narrative* Problem Noted [...] encounter (statuses as of 02/05/2023) [facility] of Past illness Narrative* Problem Noted [...] encounter (statuses as of 02/09/2023) [facility] of Past illness Narrative* Problem Noted [...] encounter (statuses as of 03/05/2023) [facility] of Past illness Narrative* Problem Noted Date Diagnosed Date Resolved Date Unspecified disorder of lower leg joint 08/31/2014 10/14/2018 History of joe deleon, currently 02/27/2013 12/17/2013 Overview: 02/27/2013 Pt has a [...] Family history of carrier of genetic disease 3 12/17/2013 Overview: 02/20/2013Pt states she is a carrier of sickle cell. She is adopted and knows some of her family, but she is unaware of anyone with the disease. There are other blood relatives that are carriers as well. The father of the baby has never been tested. Father of the baby with Johnston Syndrome. History of herpes genitalis 02/27/2013 12/17/2013 Overview: 03/21/13 - prophylaxis at 36wks - KK 02/27/2013Patient has a history of genital herpes. She is advised of the importance of reporting any outbreaks during especially during the third trimester. Patient requested diagnostic testing 02/27/2013 12/17/2013 Overview: 02/27/2013 Patient requests quad marker screen. Immunization due 02/27/2013 12/17/2013 Overview: 02/27/2013tetanus vaccine is not up-to-date Decreased movements, a ffecting management of mother, antepartum 06/06/2010 013 Raised antibody titer 02/04/20102013 Overview: 03/25/13 - anti-M antibody at a titer of 2, repeat 4 weeks - KK 03/21/13- T&S ordered - KK 02/27/2013Patient had anti-M. antibodies during her last 2 pregnancies. She denies any history of blood transfusions, IV drug use, share needles. Supervision of other high-ri (V23.89) 01/28/2010 03/21/2013 documented as of this encounter (statuses as of 01/20/2024) [facility] History of Past illness Narrative* Problem Noted Date Diagnosed Date Resolved Date Unspecified disorder of lower leg joint 08/31/2014 10/14/2018 History of joe deleon, currently 02/27/2013 12/17/2013 Overview: 02/27/2013 Pt has a [...] Family history of carrier of genetic disease 3 12/17/2013 Overview: 02/20/2013Pt states she is a carrier of sickle cell. She is adopted and knows some of her family, but she is unaware of anyone with the disease. There are other blood relatives that are carriers as well. The father of the baby has never been tested. Father of the baby with Johnston Syndrome. History of herpes genitalis 02/27/2013 12/17/2013 Overview: 03/21/13 - prophylaxis at 36wks - KK 02/27/2013Patient has a history of genital herpes. She is advised of the importance of reporting any outbreaks during especially during the third trimester. Patient requested diagnostic testing 02/27/2013 12/17/2013 Overview: 02/27/2013 Patient requests quad marker screen. Immunization due 02/27/2013 12/17/2013 Overview: 02/27/2013tetanus vaccine is not up-to-date Decreased movements, a ffecting management of mother, antepartum 06/06/2010 013 Raised antibody titer 02/04/20102013 Overview: 03/25/13 - anti-M antibody at a titer of 2, repeat 4 weeks - KK 03/21/13- T&S ordered - KK 02/27/2013Patient had anti-M. antibodies during her last 2 pregnancies. She denies any history of blood transfusions, IV drug use, share needles. Supervision of other high-ri (V23.89) 01/28/2010 03/21/2013 documented as of this encounter (statuses as of 01/22/2024) [facility] noteThere may be information available, but it has not been provided by the sender.[facility] Work Phone: Evaluation note* Diagnosis Pilonidal abscess of elyssa cleft- Primary Pilonidal cyst with abscess [facility] Well adult exam- Primary Routine [...] and immunity disorders [facility] Diagnosis Dysphagia, unspecified type Sensation of foreign body in throat Other symptoms involving head and neck [facility] Diagnosis Lung nodules Other nonspecific abnormal finding of lung field [facility] Diagnosis Bipolar disorder, in partial remission, most recent episode depressed (HCC)- Primary Bipolar I disorder, most recent episode (or current) depressed, in partial or unspecified remission Chronic insomnia Insomnia, unspecified ALFREDO (generalized anxiety disorder) Generalized anxiety disorder [facility] Diagnosis Urinary frequency- Primary SOB (shortness of breath) Shortness of breath [facility]* Diagnosis Moderate mixed bipolar I disorder (HCC)- Primary Bipolar I disorder, most recent episode (or current) mixed, moderate History of posttraumatic stress disorder (PTSD) [facility]* Diagnosis Acute cough- Primary Nasal congestion Other diseases of nasal cavity and sinuses [facility]* Diagnosis Moderate mixed bipolar I disorder (HCC)- Primary Bipolar I disorder, most recent episode (or current) mixed, moderate Generalized anxiety disorder History of attention deficit hyperactivity disorder (ADHD) [facility]* Diagnosis Generalized anxiety disorder- Primary Bipolar 1 disorder, depressed, moderate (HCC) Bipolar I disorder, most recent episode (or current) depressed, moderate History of attention deficit hyperactivity disorder (ADHD) History of posttraumatic stress disorder (PTSD) [facility]* Diagnosis Cyst near tailbone- Primary Pilonidal [...] for thyroid disorder [facility] Diagnosis NO SHOW- Primary documented in this encounter [facility]* Diagnosis Surgical wound infection- Primary Other postoperative infection [facility]* Diagnosis Palpitations- Primary Precordial chest pain Precordial pain Shortness of breath Tobacco use Tobacco use disorder [facility] Instruction Description Start Date CompletedPatient advised to follow-up with Primary Care Physician for BMI management. [facility] Work Phone: Instructions* Instruction Description Start Date CompletedPatient advised to follow-up with Primary Care Physician for BMI management. [facility] Work Phone: Reason for referral (narrative)* Diagnostic Procedure Only (Routine) - Closed Specialty Diagnoses / Procedures Referred By Portia rivera Referred To Contact US IMAGING Diagnoses Dysphagia, unspecified type Sensation of foreign body in throat Procedures US THYROID/PARATHYROID US SOFT TISSUE HEAD & NECK REAL TIME IMGE DOCMarco Antonio Romo APRN.DIRECTOR OF CLAIMS [id number] [place] [address] Us Imaging Referral ID Status Reason Start Date Expiration Date V isits Requested Visits Authorized [id number] Closed Auto-Generate d Referral 06/07/2022 07/07/2023 1 1 [facility] Summary Purpose Family History No Family History Records FoundThere may be information available, but it has not been provided by the sender.There may be information available, but it has not been provided by the sender.No Family History Records FoundNo Family History Records FoundNo Family History Records FoundNo Family HistoryRecords FoundNo Family History Records Found Advance Directives No Advanced Directives Records FoundDocuments on File Type Date Recorded 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 Advance Directive(s) 10/15/2018 11:01 AM Documents on File Type Date Recorded 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 Advance Directive(s) 10/15/2018 11:01 AM [...] Referred By Portia rivera Referred To Contact CT IMAGING Diagnoses Lung nodules Procedures CT CHEST WO IVCON DIAGNOSTIC COMPUTED TOMOGRAPHY THORAX W/O CNTRST Marco Antonio Costa APRN.DIRECTOR OF CLAIMS [address] [place] [address] Ct Imaging Referral ID Status Reason Start Date Expiration Date Visits Requested Visits Authorized [id number] Authorized Auto-Generat ed Referral 06/07/2022 11/18/2022 1 1 Specialty Diagnoses / Procedures Referred By Contac t Referred To Contact US IMAGING Diagnoses Dysphagia, unspecified type Sensation of foreign body in throat Procedures US THYROID/PARATHYROID US SOFT TISSUE HEAD & NECK REAL TIME IMGE DOCM Marco Antonio Costa, POLLS OR SURVEYS INTERVIEWER.DIRECTOR OF CLAIMS [address] [place] [address] Us Imaging Referral ID Status Reason Start Date Expiration Date Visits Requested Visits Authorized [id number] Authorized Auto-Generat ed Referral 06/07/2022 07/07/2023 1 1 Referral ID Status Reason Start Date Expiration Date V isits Requested Visits Authorized [id number] Closed Auto-Generate d Referral 06/07/2022 11/18/2022 1 1 Specialty Diagnoses / Procedures Referred By Contac t Referred To Contact General Surgery Diagnoses Cyst near tailbone Well adult exam Myalgia Arthralgia, unspecified joint Procedures CONSULT TO GENERAL SURGERY OFFICE/OUTPATIENT NEW HIGH MDM 60-74 MINUTES Marco Antonio Costa, POLLS OR SURVEYS INTERVIEWER.DIRECTOR OF CLAIMS [address] [place] [address] Referral ID Status Reason Start Date Expiration Date Visits Requested Visits Authorized [id number] Authorized PCP Requested Referral 01/26/2023 01/26/2024 1 1 Specialty Diagnoses / Procedures Referred By Contac t Referred To Contact Diagnoses Palpitations Precordial chest pain Shortness of breath Procedures ECG, TREADMILL STRESS (NON-IMAGING) HI CV STRS TST XERS&/OR RX CONT ECG W/SI&R Angel Harris MD [address] [facility] [address] [place] [address] Referral ID Status Reason Start Date Expiration Date V isits Requested Visits Authorized [id number] New Request 12/15/2024 01/09/2026 1 1 Additional Source Comments INFORMATION SOURCE (unrecogn ized section and content) DATE CREATED AUTHOR 08/29/2019 [facility] DATE CREATED AUTHOR AUTHOR'S ORGANIZ ATION 01/17/2024 [facility] ([place]) DATE CREATED AUTHOR AUTHOR'S ORGANIZ ATION 01/21/2024 [facility] DATE CREATED AUTHOR AUTHOR'S ORGANIZ ATION 04/24/2024 [facility] DATE CREATED AUTHOR AUTHOR'S ORGANIZ ATION 12/15/2024 [facility] DATE CREATED AUTHOR AUTHOR'S ORGANIZ ATION 04/19/2025 [facility] Reason for Visit (unrecogniz ed section and content) Reason For Visit Description Postop - 1st visit Preliminary reason f or visit data, not yet signed by the author as of right hip post right hip lab ral repair acetabuloplasty chondroplasty synovectomy femoroplasty capsular closure on 01/09/2022 Reason For Visit Description Start Date Postop [...] US Specialty Diagnoses / Procedures Referred By Portia rivera Referred To Contact US IMAGING Diagnoses Dysphagia, unspecified type Sensation of foreign body in throat Procedures US THYROID/PARATHYROID US SOFT TISSUE HEAD & NECK REAL TIME IMGE DOCMarco Antonio Romo, POLLS OR SURVEYS INTERVIEWER.DIRECTOR OF CLAIMS [address] [place] [address] Us Imaging Referral ID Status Reason Start Date Expiration Date V isits Requested Visits Authorized [id number] Closed Auto-Generate d Referral 06/07/2022 07/07/2023 [address] Specialty Diagnoses / Procedures Referred By Portia t Referred To Contact CT IMAGING Diagnoses Lung nodules Procedures CT CHEST WO IVCON DIAGNOSTIC COMPUTED TOMOGRAPHY THORAX W/O CNTRST Marco Antonio Costa, LUPE.DIRECTOR OF CLAIMS [address] [place] [address] Ct Imaging Referral ID Status Reason Start Date Expiration Date V isits Requested Visits Authorized [id number] Closed Auto-Generate d Referral 06/07/2022 11/18/2022 1 1 Reason Comments Opened In Error Reason Comments Patient Update Reason Comments Anxiety Depression Specialty Diagnoses / Procedures Referred By Contac t Referred To Contact Family Practice / FAMILY MEDICINE Diagnoses At risk for increased anxiety increased anxiety Procedures OFFICE/OUTPATIENT ESTABLISHED MOD MDM 30-39 MIN 4C EST Rober Saba L, DO [address] [place] [address] Thuy Bonilla APRN.DIRECTOR OF CLAIMS [address] [place] [address] Referral ID Status Reason Start Date Expiration Date V isits Requested Visits Authorized [id number] Authorized 07/03/2022 10/01/2022 10 10 Reason Comments [...] Reason Onset Date Comments Refill Request 03/05/2023 Reason Comments infection Possible infection i n surgical site on right alvarez x 1 day Reason Comments Results Orders Reason Comments New Patient Palpitations, SOB, r ecent 7 day Holter Specialty Diagnoses / Procedures Referred By Contact Referred To Contact Cardiovascular Disease / Cardiovascular Medicine Diagnoses Palpitation Sched w/pt OUTSIDE ORDER PREFERS DR ANGEL HARRIS IN [place] Procedures [facility] Yasmine Beavers MD [address] [place] [address] Angel Harris MD [address] [facility] [address] [place] [address] Referral ID Status Reason Start Date Expiration Date V isits Requested Visits Authorized [id number] New Request 12/15/2024 01/09/2026 1 1 Source Comments (unrecognize d section and content) In the event this informatio n is protected by the Federal Confidentiality of Alcohol and Drug Abuse Patient Records regulations: The Federal rules restrict any use of the information to criminally investigate or prosecute any alcohol or drug abuse patient.[facility] the event this information is protected by the Federal Confidentiality of Alcohol and Drug Abuse Patient Records regulations: The Federal rules restrict any use of the information to criminally investigate or prosecute any alcohol or drug abuse patient.[facility] CenterIn the event this information is protected by the Federal Confidentiality of Alcohol and Drug Abuse Patient Records regulations: The Federal rules restrict any use of the information to criminally investigate or prosecute any alcohol or drug abuse patient.[facility] CenterIn the event this information is protected by the Federal Confidentiality of Alcohol and Drug Abuse Patient Records regulations: The Federal rules restrict any use of the information to criminally investigate or prosecute any alcohol or drug abuse patient.[facility] CenterIn the event this information is protected by the Federal Confidentiality of Alcohol and Drug Abuse Patient Records regulations: The Federal rules restrict any use of the information to criminally investigate or prosecute any alcohol or drug abuse patient.[facility] CenterIn the event this information is protected by the Federal Confidentiality of Alcohol and Drug Abuse Patient Records regulations: The Federal rules restrict any use of the information to criminally investigate or prosecute any alcohol or drug abuse patient.[facility] CenterIn the event this information is protected by the Federal Confidentiality of Alcohol and Drug Abuse Patient Records regulations: The Federal rules restrict any use of the information to criminally investigate or prosecute any alcohol or drug abuse patient.[facility] CenterIn the event this information is protected by the Federal Confidentiality of Alcohol and Drug Abuse Patient Records regulations: The Federal rules restrict any use of the information to criminally investigate or prosecute any alcohol or drug abuse patient.[facility] CenterIn the event this information is protected by the Federal Confidentiality of Alcohol and Drug Abuse Patient Records regulations: The Federal rules restrict any use of the information to criminally investigate or prosecute any alcohol or drug abuse patient.[facility] CenterIn the event this information is protected by the Federal Confidentiality of Alcohol and Drug Abuse Patient Records regulations: The Federal rules restrict any use of the information to criminally investigate or prosecute any alcohol or drug abuse patient.[facility] CenterIn the event this information is protected by the Federal Confidentiality of Alcohol and Drug Abuse Patient Records regulations: The Federal rules restrict any use of the information to criminally investigate or prosecute any alcohol or drug abuse patient.[facility] CenterIn the event this information is protected by the Federal Confidentiality of Alcohol and Drug Abuse Patient Records regulations: The Federal rules restrict any use of the information to criminally investigate or prosecute any alcohol or drug abuse patient.[facility] the event this information is protected by the Federal Confidentiality of Alcohol and Drug Abuse Patient Records regulations: The Federal rules restrict any use of the information to criminally investigate or prosecute any alcohol or drug abuse patient.[facility] CenterIn the event this information is protected by the Federal Confidentiality of Alcohol and Drug Abuse Patient Records regulations: The Federal rules restrict any use of the information to criminally investigate or prosecute any alcohol or drug abuse patient.[facility] CenterIn the event this information is protected by the Federal Confidentiality of Alcohol and Drug Abuse Patient Records regulations: The Federal rules restrict any use of the information to criminally investigate or prosecute any alcohol or drug abuse patient.[facility] CenterIn the event this information is protected by the Federal Confidentiality of Alcohol and Drug Abuse Patient Records regulations: The Federal rules restrict any use of the information to criminally investigate or prosecute any alcohol or drug abuse patient.[facility] CenterIn the event this information is protected by the Federal Confidentiality of Alcohol and Drug Abuse Patient Records regulations: The Federal rules restrict any use of the information to criminally investigate or prosecute any alcohol or drug abuse patient.[facility] CenterIn the event this information is protected by the Federal Confidentiality of Alcohol and Drug Abuse Patient Records regulations: The Federal rules restrict any use of the information to criminally investigate or prosecute any alcohol or drug abuse patient.[facility] CenterIn the event this information is protected by the Federal Confidentiality of Alcohol and Drug Abuse Patient Records regulations: The Federal rules restrict any use of the information to criminally investigate or prosecute any alcohol or drug abuse patient.[facility] CenterIn the event this information is protected by the Federal Confidentiality of Alcohol and Drug Abuse Patient Records regulations: The Federal rules restrict any use of the information to criminally investigate or prosecute any alcohol or drug abuse patient.[facility] CenterIn the event this information is protected by the Federal Confidentiality of Alcohol and Drug Abuse Patient Records regulations: The Federal rules restrict any use of the information to criminally investigate or prosecute any alcohol or drug abuse patient.[facility] CenterIn the event this information is protected by the Federal Confidentiality of Alcohol and Drug Abuse Patient Records regulations: The Federal rules restrict any use of the information to criminally investigate or prosecute any alcohol or drug abuse patient.[facility] CenterIn the event this information is protected by the Federal Confidentiality of Alcohol and Drug Abuse Patient Records regulations: The Federal rules restrict any use of the information to criminally investigate or prosecute any alcohol or drug abuse patient.[facility] CenterIn the event this information is protected by the Federal Confidentiality of Alcohol and Drug Abuse Patient Records regulations: The Federal rules restrict any use of the information to criminally investigate or prosecute any alcohol or drug abuse patient.[facility] CenterIn the event this information is protected by the Federal Confidentiality of Alcohol and Drug Abuse Patient Records regulations: The Federal rules restrict any use of the information to criminally investigate or prosecute any alcohol or drug abuse patient.[facility] Care Teams (unrecognized sec tion and content) Gasket Inspector Relationship Specialty Start Date End Date Rober Saba, DO [address] [place] [address] PCP - General Family Practice 10/28/14 Gasket Inspector Relationship Specialty Start Date End Date Rober Saba DO [address] [place] [address] PCP - General Family Practice 10/28/14 Gasket Inspector Relationship Specialty Start Date End Date Rober Saba DO [address] [place] [address] PCP - General Family Practice 10/28/14 Gasket Inspector Relationship Specialty Start Date End Date Rober Saba DO [address] [place] [address] PCP - General Family Practice 10/28/14 Gasket Inspector Relationship Specialty Start Date End Date Rober Saba, DO [address] [place] [address] PCP - General Family Practice 10/28/14 Gasket Inspector Relationship Specialty Start Date End Date Rober Saba, DO [address] [place] [address] PCP - General Family Practice 10/28/14 Gasket Inspector Relationship Specialty Start Date End Date Rober Saba, DO [address] [place] [address] PCP - General Family Practice 10/28/14 Gasket Inspector Relationship Specialty Start Date End Date Rober Saba, DO [address] [place] [address] PCP - General Family Practice 10/28/14 Gasket Inspector Relationship Specialty Start Date End Date Rober Saba, DO [address] [place] [address] PCP - General Family Practice 10/28/14 Gasket Inspector Relationship Specialty Start Date End Date Rober Saba, DO [address] [place] [address] PCP - General Family Practice 10/28/14 Gasket Inspector Relationship Specialty Start Date End Date Rober Saba, DO [address] [place] [address] PCP - General Family Practice 10/28/14 Gasket Inspector Relationship Specialty Start Date End Date Rober Saba, DO [address] [place] [address] PCP - General Family Medicine 10/28/14 Gasket Inspector Relationship Specialty Start Date End Date Rober Saba, DO [address] [place] [address] PCP - General Family Medicine 10/28/14 Gasket Inspector Relationship Specialty Start Date End Date Rober Saba, DO [address] [place] [address] PCP - General Family Medicine 10/28/14 Gasket Inspector Relationship Specialty Start Date End Date Rober Saba, DO [address] [facility] [place] [address] PCP - General Family Medicine 10/28/14 Gasket Inspector Relationship Specialty Start Date End Date Rober Saba, DO [address] [facility] [place] [address] PCP - General Family Medicine 10/28/14 Gasket Inspector Relationship Specialty Start Date End Date Rober Saba, DO [address] [facility] [place] [address] PCP - General Family Medicine 10/28/14 Gasket Inspector Relationship Specialty Start Date End Date Rober Saba, DO [address] [facility] [place] [address] PCP - General Family Medicine 10/28/14 Gasket Inspector Relationship Specialty Start Date End Date Rober Saba, DO [address] [place] [address] PCP - General Family Medicine 10/28/14 Gasket Inspector Relationship Specialty Start Date End Date Rober Saba, DO [address] [facility] [place] [address] PCP - General Family Medicine 10/28/14 Gasket Inspector Relationship Specialty Start Date End Date Rober Saba DO [address] [facility] [place] [address] PCP - General Family Medicine 12/10/14 Gasket Inspector Relationship Specialty Start Date End Date Rober Saba DO [address] [place] [address] PCP - General Family Medicine 10/28/14 FOR RECORDS PERTAINING TO PATIENTS WHO [...] BE BASED ON THE PRIMARY CLINICAL RECORDS. [employer] provides no warranty or guarantee of the accuracy or completeness of information in this document.
== END | disposition home or self-care (01) ==
LOC: CVS 13:57
PROVIDERS: PCP Family Medicine; Referring Provider Family Medicine; Visit Provider Family Medicine
DX: M79.604 Pain in right leg (principal)
CPT/HCPCS: 93971

== ENCOUNTER → 2025-05-05 | Outpatient (CLI) | payer BC, SELFPAY ==
--- NOTE | 2025-05-05 17:17 | RAD_ITS ---
PROCEDURE: KNEE 3 VIEWS 05/05/2025 REASON FOR EXAM: KNEE PAIN TECHNIQUE: KNEE 3 VIEWS COMPARISON: None. FINDINGS: Normal medial femorotibial compartment. Normal lateral femorotibial compartment. Normal patellofemoral articulation. Normal visualized distal femur. Normal visualized proximal tibia and fibula. Normal proximal tibiofibular articulation. RAD/Knee 3 Views IMPRESSION: No evidence for acute abnormality. Reading Location: [facility]
--- NOTE | 2025-05-05 17:18 | RAD_ITS ---
PROCEDURE: SHOULDER MIN 2 VIEWS 05/05/2025 REASON FOR EXAM: SHOULDER PAIN TECHNIQUE: SHOULDER MIN 2 VIEWS COMPARISON: None. FINDINGS: Normal glenohumeral articulation. Normal acromioclavicular joint. Normal acromion. Normal humeral head and visualized proximal humerus. Normal visualized scapula. There is no demonstrated soft tissue abnormality. Normal visualized pulmonary apex. RAD/Shoulder min 2 Views IMPRESSION: No evidence for acute abnormality. Reading Location[facility]
--- NOTE | 2025-05-05 17:18 | RAD_ITS ---
PROCEDURE: KNEE 3 VIEWS 05/05/2025 REASON FOR EXAM: KNEE PAIN TECHNIQUE: KNEE 3 VIEWS COMPARISON: MRI on 11/27/2023. FINDINGS: Mild tricompartmental changes of degenerative joint disease. Prior reconstruction of the anterior cruciate ligament. No fracture or dislocation is seen. RAD/Knee 3 Views IMPRESSION: No evidence for acute abnormality. Reading [facility]
--- NOTE | 2025-05-05 17:18 | RAD_ITS ---
PROCEDURE: SHOULDER MIN 2 VIEWS 05/05/2025 REASON FOR EXAM: SHOULDER PAIN TECHNIQUE: SHOULDER MIN 2 VIEWS COMPARISON: None. FINDINGS: Normal glenohumeral articulation. Normal acromioclavicular joint. Normal acromion. Normal humeral head and visualized proximal humerus. Normal visualized scapula. There is no demonstrated soft tissue abnormality. Normal visualized pulmonary apex. RAD/Shoulder min 2 Views IMPRESSION: No evidence for acute abnormality. Reading [facility]
--- NOTE | 2025-05-05 17:40 | RAD_ITS ---
PROCEDURE: HIPS B/L MIN 2 VIEWS W/ PELVIS 05/05/2025 REASON FOR EXAM: HIP PAIN TECHNIQUE: HIPS B/L MIN 2 VIEWS W/ PELVIS COMPARISON: None. FINDINGS: There is a non-specific bowel gas pattern. Normal visualized soft tissue structures. Normal visualized sacrum, sacroiliac joints and bilateral iliac wings. Normal visualized bilateral superior and inferior pubic rami. Normal ischial tuberosities. Normal pubic symphysis. Normal visualized right femoral head. Normal right acetabulum. Normal right hip joint. Normal visualized left femoral head. Normal left acetabulum. Normal left hip joint. Metallic clips are noted in the left aspect of the pelvis. RAD/Hips B/L min 2 views w/ Pelvis IMPRESSION: No evidence for acute abnormality. Reading Location[facility]
[2025-05-05 18:16] LABS: Absolute Lymphocyte Count 3.75 X10^3/uL (0.83-4.51); Absolute Neutrophil Count 8.1 X10^3/uL (2.0-7.7); Basophil# 0.07 X10^3/uL; Basophil% 0.5 % (0-1); Eosinophils% 1.5 % (0-5); Hematocrit 37.5 % (37-47); Hemoglobin 12.8 g/dL (12.0-15.0); Lymphocyte # 3.75 X10^3/ul (0.83-4.51); Lymphocyte % 28.8 % (19-41); Mean Corp Hgb Conc 34.1 g/dL (32-36); Mean Corpuscular Hgb 28.6 pg (27.0-32.0); Mean Corpuscular Volume 83.9 fL (81-99); Mean Platelet Vol. 10.4 fl (6.2-12.0); Monocyte# 0.83 X10^3/uL; Monocyte% 6.4 % (0-10); NRBC Flagged by Analyzer 0 % (0-5); Neutrophil # 8.13 X10^3/uL (2.7-7.7); Neutrophil % 62.6 % (47-70); Platelet Count 276 K/mm3 (150-450); RBC Distribution Width CV 12.9 % (11.6-14.6); RBC Distribution Width SD 39.7 fl (35.1-43.9); Red Blood Count 4.47 M/mm3 (4.2-5.4)
[2025-05-05 18:18] LABS: Erythrocyte Sedimentation Rate 4 mm/hr (0-30)
[2025-05-05 18:39] LABS: ALB/GLOB Ratio 1.4 RATIO (0.9-2.4); AST(SGOT) 20 U/L (<=31); Alanine Aminotransfer ALT/SGPT 13 U/L (<=34); Albumin, Serum 4.2 g/dL (3.5-5.0); Alkaline Phosphatase 51 U/L (35-104); Anion Gap 11 (5-15); BUN 7 mg/dL (4-19); BUN/Creat Ratio 8.5 RATIO (10-20); Calcium,Total 8.9 mg/dL (7.6-11.0); Chloride 103 mmol/L (98-108); Creatinine, Serum 0.86 mg/dL (0.70-1.20); EST Glomerular Filtration Rate 91 (>60); Glucose 90 mg/dL (70-99); Potassium 3.6 mmol/L (3.3-5.1); Protein, Total 7.2 g/dL (5.9-8.4); Sodium Level 138 mmol/L (133-145); Total Bilirubin 0.28 mg/dL (0.00-1.30)
[2025-05-05 18:41] LABS: Rheumatoid Factor < 10.0 IU/mL (<15)
[2025-05-07 09:08] LABS: ANTINUCLEAR ANTIBODIES DIRECT Negative (Negative)
[2025-05-07 14:08] LABS: Lyme Scn Total Ab w/Rflx Negative (Negative)
== END | disposition home or self-care (01) ==
PROVIDERS: PCP Family Medicine; Referring Provider Family Medicine; Visit Provider Family Medicine
DX: M25.552 Pain in left hip (principal); M25.551 Pain in right hip; M25.561 Pain in right knee; M25.562 Pain in left knee; M25.512 Pain in left shoulder; M25.511 Pain in right shoulder
CPT/HCPCS: 36415; 73030; 73521; 73562; 80053; 85025; 85652; 86038; 86431; 86618

== ENCOUNTER → 2025-05-18 | Outpatient (CLI) | payer BC, SELFPAY ==
[2025-05-19 04:07] LABS: PROLACTIN 18.4 ng/mL (4.8-33.4)
== END | disposition home or self-care (01) ==
PROVIDERS: PCP Family Medicine; Referring Provider Obstetrics & Gynecology; Visit Provider Obstetrics & Gynecology
DX: N64.3 Galactorrhea not associated with childbirth (principal)
CPT/HCPCS: 36415; 84146

== ENCOUNTER 2025-06-02 05:31 | Day surgery (SDC) | payer BC, SELFPAY ==
--- NOTE | 2025-05-19 18:39 | PAT.ANE_ITS ---
Pre-Assessment Diagnosis/Proposed Procedure Planned Operative Procedure(s): (B) Hysterectomy,Vaginal Poss LAVH, Bilateral Salpingectomy Anesthesia History Anesthesia History - blueprint trimmer: Anesthesia History - blueprint trimmer Hx Hospitalization No 05/19/25 08:48 Any Problems With Anesthesia No 05/19/25 08:48 Cholinesterase deficiency No 05/19/25 08:48 You/Your Family Experience No: ADOPTED 05/19/25 08:48 fever (hyperthermia) with Relationship Recent Exposure to Contagious No 12/31/23 11:13 Disease Does patient have nerve No 05/19/25 08:48 stimulator Patient instructed to have device shut off --Does patient have Pacemaker or ICD? When Was Last Pacemaker Check QUESTION #4 FULL TEXT: You/Your Family Experience fever (hyperthermia) with Anesthesia Last Oral Intake Last Oral intake: Last Oral Intake NPO since Meds taken in AM with sips of water? Meds patient instructed to take am of surgery PONV PONV - blueprint trimmer: PONV - blueprint trimmer Female Yes 05/19/25 08:48 HX of Motion Sickness No 05/19/25 08:48 HX of N/V After Surgery No 05/19/25 08:48 Non-Smoker No 05/19/25 08:48 Duration of Surgery greater No 05/19/25 08:48 than 60 minutes Number of Risk Factors 1 05/19/25 08:48 PONV Score Low Risk 05/19/25 08:48 Height & Weight Height & Weight: Anesthesia: Height & Weight Height 5 ft 9 in 11/07/24 16:04 Respiratory Assessment Respiratory Assessment - blueprint trimmer: Respiratory Tract Infection Hx - blueprint trimmer Hx Respiratory Tract Infection No 05/19/25 08:48 STOP Sleep Apnea STOP Sleep Apnea - blueprint trimmer: STOP Sleep Apnea - blueprint trimmer Hx Hypertension No 05/19/25 08:48 Hx Sleep Apnea No 05/19/25 08:48 CPAP BIPAP Do you snore loudly (louder No 05/19/25 08:48 than talking or can be heard Do you often feel tired/ No 05/19/25 08:48 fatigued/ sleepy during daytime? Has anyone observed you stop No 05/19/25 08:48 breathing during sleep? STOP Results Negative 05/19/25 08:48 QUESTION #5 FULL TEXT : Do you snore loudly (louder than talking or can be heard through closed doors)? Tobacco Use History Tobacco Use History - blueprint trimmer: Tobacco Use History - blueprint trimmer Tobacco Use Smoking Status Current every day smoker 05/19/25 08:48 Hx Tobacco Use Yes 05/19/25 08:48 Years Smoking Packs Smoked per Day Smoking Cessation Date was within the last 15 years Hx Smoking Cessation Date Hx Smoking Cessation Counseling Hematologic Medial History Hematologic Hx - blueprint trimmer: Hematologic Medical Hx - film spooler Hx of Blood Transfusion No 05/19/25 08:48 Hx of Transfusion in last 3 No 05/19/25 08:48 Months Date of Last Transfusion (if within last 3 months) Ever experience any problems No 05/19/25 08:48 with transfusion(s)? Specify any problems Hx of Preganancy in last 3 No 05/19/25 08:48 Months Nurse Filling Out Transfusion [facility] 05/19/25 08:48 & Questions: Date: 05/19/25 05/19/25 08:48 Time: 08:56 05/19/25 08:48 Patient unable to answer at this time (ie. confused, unrespo /Reproduction History /Reproductive History - blueprint trimmer: /Reproductive Hx- blueprint trimmer Hx Now No 05/19/25 08:48 Gestational Age (in weeks): EDC: Hx Hx Para Hx Section SAB No 05/19/25 08:48 [facility] Medical History (Updated 05/19/25 @ 08:54 by Sandy Nicolas) MRSA infection Gastric reflux History of Holter monitoring History of stress test History of echocardiogram Wears glasses Anxiety Marijuana use Chronic cough Smoker History of edema Cardiology follow-up encounter History of irregular heartbeat Suicide attempt Anemia ADHD Alcohol use disorder, mild, in early remission PTSD (post-traumatic stress disorder) Generalized anxiety disorder Bipolar disorder, unspecified Alcohol abuse Tobacco use Anxiety and depression History of multiple pulmonary nodules Palpitations Varicosities of leg History of meningitis Genital herpes ASCUS with positive high risk HPV Home Medications ?Medication ?Instructions ?Recorded ?Last Taken ?Type NK 05/18/25 Unknown History Allergy/AdvReac Type Severity Reaction Status Date / Time azithromycin (From Zithromax) Allergy Rash Verified 11/07/24 16:04 amoxicillin AdvReac Vomiting Verified 11/07/24 16:04 red dye AdvReac Vomiting Verified 11/07/24 16:04 Family History Mother Anxiety and depression Bipolar disorder Polysubstance abuse STD (female) Drug abuse Other Alcoholism Arthritis Cancer Heart disease Mental disorder Myocardial infarction Surgical History (Updated 05/19/25 @ 08:47 by Sandy Nicolas) History of repair of ACL History of hip surgery History of tubal ligation History of arthroscopic knee surgery History of varicose vein stripping Social History household members: spouse and family Smoking Status: Current every day smoker tobacco type: e-cigarettes quit status: has quit before alcohol intake: current alcohol intake frequency: 3 or more drinks per day Alcohol type: beer details: 4-6, 12 ounce beers daily since age 18. substance use type: marijuana caffeine: Yes Type: carbonated beverages Number of servings: 2, coffee and tea what type of physical activity do you participate in: none seatbelt use: sometimes do you feel safe at home: Yes additional social history: - Ray Audit: Pertinent Findings Pertinent Findings EKG Perinent findings: EKG 04/23/2024: Normal sinus rhythm with incomplete right bundle branch block. Ventricular rate of 71 TN 134 ms, QT 420 Stress test pertinent findings: Stress test from 12/25/2024: Stress protocol: Resting EKG demonstrates normal sinus rhythm with a rate of 77 bpm resting blood pressure is 112/80 mmHg. The patient exercised according to the regular Ezekiel protocol for a total duration of 7 minutes and 20 seconds attaining a maximum heart rate of 173 bpm which was 92% of maximum predicted heart rate; the maximum workload was 10.1 metabolic equivalents. At rest there were no ST or T wave changes noted to suggest ischemia and at peak exercise upsloping ST changes only were noted which did not meet the criteria for ischemia. No clinical angina was noted the test was terminated due to the target heart rate being achieved/fatigue. The peak blood pressure was 164/70 mmHg. Rate-pressure product was 26,200. Conclusion Stress test with no EKG criteria for ischemia at a high workload Recommendation Anesthesia Recommendation Anesthesia recommendation: F/U recommended (We are still awaiting further notes from the patient's steel box toe inserter Dr. Harris from [facility]. Appears at the last note from his office states that the patient will get a stress test and follow- up. I do not see a follow-up note. Her stress test was normal.)
--- NOTE | 2025-05-19 18:39 | PAT.ANE_ITS ---
Pre-Assessment Diagnosis/Proposed Procedure Planned Operative Procedure(s): (B) Hysterectomy,Vaginal Poss LAVH, Bilateral Salpingectomy Anesthesia History Anesthesia History - certified medicine aide: Anesthesia History - certified medicine aide Hx Hospitalization No 05/19/25 08:48 Any Problems With Anesthesia No 05/19/25 08:48 Cholinesterase deficiency No 05/19/25 08:48 You/Your Family Experience No: ADOPTED 05/19/25 08:48 fever (hyperthermia) with Relationship Recent Exposure to Contagious No 12/31/23 11:13 Disease Does patient have nerve No 05/19/25 08:48 stimulator Patient instructed to have device shut off --Does patient have Pacemaker or ICD? When Was Last Pacemaker Check QUESTION #4 FULL TEXT: You/Your Family Experience fever (hyperthermia) with Anesthesia Last Oral Intake Last Oral intake: Last Oral Intake NPO since Meds taken in AM with sips of water? Meds patient instructed to take am of surgery PONV PONV - certified medicine aide: PONV - certified medicine aide Female Yes 05/19/25 08:48 HX of Motion Sickness No 05/19/25 08:48 HX of N/V After Surgery No 05/19/25 08:48 Non-Smoker No 05/19/25 08:48 Duration of Surgery greater No 05/19/25 08:48 than 60 minutes Number of Risk Factors 1 05/19/25 08:48 PONV Score Low Risk 05/19/25 08:48 Height & Weight Height & Weight: Anesthesia: Height & Weight Height 5 ft 9 in 11/07/24 16:04 Respiratory Assessment Respiratory Assessment - certified medicine aide: Respiratory Tract Infection Hx - certified medicine aide Hx Respiratory Tract Infection No 05/19/25 08:48 STOP Sleep Apnea STOP Sleep Apnea - certified medicine aide: STOP Sleep Apnea - certified medicine aide Hx Hypertension No 05/19/25 08:48 Hx Sleep Apnea No 05/19/25 08:48 CPAP BIPAP Do you snore loudly (louder No 05/19/25 08:48 than talking or can be heard Do you often feel tired/ No 05/19/25 08:48 fatigued/ sleepy during daytime? Has anyone observed you stop No 05/19/25 08:48 breathing during sleep? STOP Results Negative 05/19/25 08:48 QUESTION #5 FULL TEXT : Do you snore loudly (louder than talking or can be heard through closed doors)? 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 Specify any problems Hx of Preganancy in last 3 No 05/19/25 08:48 Months Nurse Filling Out Transfusion [facility] 05/19/25 08:48 & Questions: Date: 05/19/25 05/19/25 08:48 Time: 08:56 05/19/25 08:48 Patient unable to answer at this time (ie. confused, unrespo /Reproduction History /Reproductive History - certified medicine aide: /Reproductive Hx- certified medicine aide Hx Now No 05/19/25 08:48 Gestational Age (in weeks): EDC: Hx Hx Para Hx Section SAB No 05/19/25 08:48 [facility] Medical History (Updated 05/19/25 @ 08:54 by Sandy Nicolas) MRSA infection Gastric reflux History of Holter monitoring History of stress test History of echocardiogram Wears glasses Anxiety Marijuana use Chronic cough Smoker History of edema Cardiology follow-up encounter History of irregular heartbeat Suicide attempt Anemia ADHD Alcohol use disorder, mild, in early remission PTSD (post-traumatic stress disorder) Generalized anxiety disorder Bipolar disorder, unspecified Alcohol abuse Tobacco use Anxiety and depression History of multiple pulmonary nodules Palpitations Varicosities of leg History of meningitis Genital herpes ASCUS with positive high risk HPV Home Medications ?Medication ?Instructions ?Recorded ?Last Taken ?Type NK 05/18/25 Unknown History Allergy/AdvReac Type Severity Reaction Status Date / Time azithromycin (From Zithromax) Allergy Rash Verified 11/07/24 16:04 amoxicillin AdvReac Vomiting Verified 11/07/24 16:04 red dye AdvReac Vomiting Verified 11/07/24 16:04 Family History Mother Anxiety and depression Bipolar disorder Polysubstance abuse STD (female) Drug abuse Other Alcoholism Arthritis Cancer Heart disease Mental disorder Myocardial infarction Surgical History (Updated 05/19/25 @ 08:47 by Sandy Nicolas) History of repair of ACL History of hip surgery History of tubal ligation History of arthroscopic knee surgery History of varicose vein stripping Social History household members: spouse and family Smoking Status: Current every day smoker tobacco type: e-cigarettes quit status: has quit before alcohol intake: current alcohol intake frequency: 3 or more drinks per day Alcohol type: beer details: 4-6, 12 ounce beers daily since age 18. substance use type: marijuana caffeine: Yes Type: carbonated beverages Number of servings: 2, coffee and tea what type of physical activity do you participate in: none seatbelt use: sometimes do you feel safe at home: Yes additional social history: - Ray Audit: Pertinent Findings Pertinent Findings EKG Perinent findings: EKG 04/23/2024: Normal sinus rhythm with incomplete right bundle branch block. Ventricular rate of 71 IA 134 ms, QT 420 Stress test pertinent findings: Stress test from 12/25/2024: Stress protocol: Resting EKG demonstrates normal sinus rhythm with a rate of 77 bpm resting blood pressure is 112/80 mmHg. The patient exercised according to the regular Ezekiel protocol for a total duration of 7 minutes and 20 seconds attaining a maximum heart rate of 173 bpm which was 92% of maximum predicted heart rate; the maximum workload was 10.1 metabolic equivalents. At rest there were no ST or T wave changes noted to suggest ischemia and at peak exercise upsloping ST changes only were noted which did not meet the criteria for ischemia. No clinical angina was noted the test was terminated due to the target heart rate being achieved/fatigue. The peak blood pressure was 164/70 mmHg. Rate-pressure product was 26,200. Conclusion Stress test with no EKG criteria for ischemia at a high workload Recommendation Anesthesia Recommendation Anesthesia recommendation: F/U recommended (We are still awaiting further notes from the patient's latent fingerprint examiner Dr. Harris from [facility]. Appears at the last note from his office states that the patient will get a stress test and follow- up. I do not see a follow-up note. Her stress test was normal.)
[2025-05-20 16:27] LABS: Magnesium 2.3 mg/dL (1.5-2.2)
--- NOTE | 2025-05-20 19:15 | PAT.ANESEVAL ---
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 When Was Last Pacemaker Check QUESTION #4 FULL TEXT: You/Your Family Experience fever (hyperthermia) with Anesthesia Last Oral Intake Last Oral intake: Last Oral Intake NPO since Meds taken in AM with sips of water? Meds patient instructed to take am of surgery PONV PONV - tassel clipper: PONV - tassel clipper Female Yes 05/19/25 08:48 HX of Motion Sickness No 05/19/25 08:48 HX of N/V After Surgery No 05/19/25 08:48 Non-Smoker No 05/19/25 08:48 Duration of Surgery greater No 05/19/25 08:48 than 60 minutes Number of Risk Factors 1 05/19/25 08:48 PONV Score Low Risk 05/19/25 08:48 Height & Weight Height & Weight: Anesthesia: Height & Weight Height 5 ft 9 in 11/07/24 16:04 Respiratory Assessment Respiratory Assessment - tassel clipper: Respiratory Tract Infection Hx - tassel clipper Hx Respiratory Tract Infection No 05/19/25 08:48 STOP Sleep Apnea STOP Sleep Apnea - tassel clipper: STOP Sleep Apnea - tassel clipper Hx Hypertension No 05/19/25 08:48 Hx Sleep Apnea No 05/19/25 08:48 CPAP BIPAP Do you snore loudly (louder No 05/19/25 08:48 than talking or can be heard Do you often feel tired/ No 05/19/25 08:48 fatigued/ sleepy during daytime? Has anyone observed you stop No 05/19/25 08:48 breathing during sleep? STOP Results Negative 05/19/25 08:48 QUESTION #5 FULL TEXT : Do you snore loudly (louder than talking or can be heard through closed doors)? 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 Specify any problems Hx of Preganancy in last 3 No 05/19/25 08:48 Months Nurse Filling Out Transfusion [facility] 05/19/25 08:48 & Questions: Date: 05/19/25 05/19/25 08:48 Time: 08:56 05/19/25 08:48 Patient unable to answer at this time (ie. confused, unrespo /Reproduction History /Reproductive History - tassel clipper: /Reproductive Hx- tassel clipper Hx Now No 05/19/25 08:48 Gestational Age (in weeks): EDC: Hx Hx Para Hx Section SAB No 05/19/25 08:48 [facility] Medical History (Updated 05/19/25 @ 08:54 by Sandy Nicolas) MRSA infection Gastric reflux History of Holter monitoring History of stress test History of echocardiogram Wears glasses Anxiety Marijuana use Chronic cough Smoker History of edema Cardiology follow-up encounter History of irregular heartbeat Suicide attempt Anemia ADHD Alcohol use disorder, mild, in early remission PTSD (post-traumatic stress disorder) Generalized anxiety disorder Bipolar disorder, unspecified Alcohol abuse Tobacco use Anxiety and depression History of multiple pulmonary nodules Palpitations Varicosities of leg History of meningitis Genital herpes ASCUS with positive high risk HPV Home Medications ?Medication ?Instructions ?Recorded ?Last Taken ?Type NK 05/18/25 Unknown History Allergy/AdvReac Type Severity Reaction Status Date / Time azithromycin (From Zithromax) Allergy Rash Verified 11/07/24 16:04 amoxicillin AdvReac Vomiting Verified 11/07/24 16:04 red dye AdvReac Vomiting Verified 11/07/24 16:04 Family History Mother Anxiety and depression Bipolar disorder Polysubstance abuse STD (female) Drug abuse Other Alcoholism Arthritis Cancer Heart disease Mental disorder Myocardial infarction Surgical History (Updated 05/19/25 @ 08:47 by Sandy Nicolas) History of repair of ACL History of hip surgery History of tubal ligation History of arthroscopic knee surgery History of varicose vein stripping Social History household members: spouse and family Smoking Status: Current every day smoker tobacco type: e-cigarettes quit status: has quit before alcohol intake: current alcohol intake frequency: 3 or more drinks per day Alcohol type: beer details: 4-6, 12 ounce beers daily since age 18. substance use type: marijuana caffeine: Yes Type: carbonated beverages Number of servings: 2, coffee and tea what type of physical activity do you participate in: none seatbelt use: sometimes do you feel safe at home: Yes additional social history: - Ray Audit: Pertinent Findings HISTORY of Pertinent Findings History of Pertinent Findings: EKG Pertinent Findings EKG Perinent findings EKG 04/23/2024: 05/19/25 18:43 Normal sinus rhythm with incomplete right bundle branch block. Ventricular rate of 71 ME 134 ms, QT 420 Stress Test Pertinent Findings Stress test pertinent findings Stress test from 12/25/2024: 05/19/25 18:43 Stress protocol: Resting EKG demonstrates normal sinus rhythm with a rate of 77 bpm resting blood pressure is 112/80 mmHg. The patient exercised according to the regular Ezekiel protocol for a total duration of 7 minutes and 20 seconds attaining a maximum heart rate of 173 bpm which was 92% of maximum predicted heart rate; the maximum workload was 10.1 metabolic equivalents. At rest there were no ST or T wave changes noted to suggest ischemia and at peak exercise upsloping ST changes only were noted which did not meet the criteria for ischemia. No clinical angina was noted the test was terminated due to the target heart rate being achieved/fatigue. The peak blood pressure was 164 /70 mmHg. Rate-pressure product was 26,200. Conclusion Stress test with no EKG criteria for ischemia at a high workload Recommendation Anesthesia Recommendation Anesthesia recommendation: OPTIMIZED for anesthesia (Stress test from every 05/08/2025 is adequate. Optimized for anesthesia.)
--- NOTE | 2025-05-20 19:15 | PAT.ANESEVAL ---
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 When Was Last Pacemaker Check QUESTION #4 FULL TEXT: You/Your Family Experience fever (hyperthermia) with Anesthesia Last Oral Intake Last Oral intake: Last Oral Intake NPO since Meds taken in AM with sips of water? 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 compressor operator Female Yes 05/19/25 08:48 HX of Motion Sickness No 05/19/25 08:48 HX of N/V After Surgery No 05/19/25 08:48 Non-Smoker No 05/19/25 08:48 Duration of Surgery greater No 05/19/25 08:48 than 60 minutes Number of Risk Factors 1 05/19/25 08:48 PONV Score Low Risk 05/19/25 08:48 Height & Weight Height & Weight: Anesthesia: Height & Weight Height 5 ft 9 in 11/07/24 16:04 Respiratory Assessment Respiratory Assessment - butadiene compressor operator: Respiratory Tract Infection Hx - butadiene compressor operator Hx Respiratory Tract Infection No 05/19/25 08:48 STOP Sleep Apnea STOP Sleep Apnea - butadiene compressor operator: STOP Sleep Apnea - butadiene compressor operator Hx Hypertension No 05/19/25 08:48 Hx Sleep Apnea No 05/19/25 08:48 CPAP BIPAP Do you snore loudly (louder No 05/19/25 08:48 than talking or can be heard Do you often feel tired/ No 05/19/25 08:48 fatigued/ sleepy during daytime? Has anyone observed you stop No 05/19/25 08:48 breathing during sleep? STOP Results Negative 05/19/25 08:48 QUESTION #5 FULL TEXT : Do you snore loudly (louder than talking or can be heard through closed doors)? 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 Specify any problems Hx of Preganancy in last 3 No 05/19/25 08:48 Months Nurse Filling Out Transfusion [facility] 05/19/25 08:48 & Questions: Date: 05/19/25 05/19/25 08:48 Time: 08:56 05/19/25 08:48 Patient unable to answer at this time (ie. confused, unrespo /Reproduction History /Reproductive History - butadiene compressor operator: /Reproductive Hx- butadiene compressor operator Hx Now No 05/19/25 08:48 Gestational Age (in weeks): EDC: Hx Hx Para Hx Section SAB No 05/19/25 08:48 [facility] Medical History (Updated 05/19/25 @ 08:54 by Sandy Nicolas) MRSA infection Gastric reflux History of Holter monitoring History of stress test History of echocardiogram Wears glasses Anxiety Marijuana use Chronic cough Smoker History of edema Cardiology follow-up encounter History of irregular heartbeat Suicide attempt Anemia ADHD Alcohol use disorder, mild, in early remission PTSD (post-traumatic stress disorder) Generalized anxiety disorder Bipolar disorder, unspecified Alcohol abuse Tobacco use Anxiety and depression History of multiple pulmonary nodules Palpitations Varicosities of leg History of meningitis Genital herpes ASCUS with positive high risk HPV Home Medications ?Medication ?Instructions ?Recorded ?Last Taken ?Type NK 05/18/25 Unknown History Allergy/AdvReac Type Severity Reaction Status Date / Time azithromycin (From Zithromax) Allergy Rash Verified 11/07/24 16:04 amoxicillin AdvReac Vomiting Verified 11/07/24 16:04 red dye AdvReac Vomiting Verified 11/07/24 16:04 Family History Mother Anxiety and depression Bipolar disorder Polysubstance abuse STD (female) Drug abuse Other Alcoholism Arthritis Cancer Heart disease Mental disorder Myocardial infarction Surgical History (Updated 05/19/25 @ 08:47 by Sandy Nicolas) History of repair of ACL History of hip surgery History of tubal ligation History of arthroscopic knee surgery History of varicose vein stripping Social History household members: spouse and family Smoking Status: Current every day smoker tobacco type: e-cigarettes quit status: has quit before alcohol intake: current alcohol intake frequency: 3 or more drinks per day Alcohol type: beer details: 4-6, 12 ounce beers daily since age 18. substance use type: marijuana caffeine: Yes Type: carbonated beverages Number of servings: 2, coffee and tea what type of physical activity do you participate in: none seatbelt use: sometimes do you feel safe at home: Yes additional social history: - Ray Audit: Pertinent Findings HISTORY of Pertinent Findings History of Pertinent Findings: EKG Pertinent Findings EKG Perinent findings EKG 04/23/2024: 05/19/25 18:43 Normal sinus rhythm with incomplete right bundle branch block. Ventricular rate of 71 FL 134 ms, QT 420 Stress Test Pertinent Findings Stress test pertinent findings Stress test from 12/25/2024: 05/19/25 18:43 Stress protocol: Resting EKG demonstrates normal sinus rhythm with a rate of 77 bpm resting blood pressure is 112/80 mmHg. The patient exercised according to the regular Ezekiel protocol for a total duration of 7 minutes and 20 seconds attaining a maximum heart rate of 173 bpm which was 92% of maximum predicted heart rate; the maximum workload was 10.1 metabolic equivalents. At rest there were no ST or T wave changes noted to suggest ischemia and at peak exercise upsloping ST changes only were noted which did not meet the criteria for ischemia. No clinical angina was noted the test was terminated due to the target heart rate being achieved/fatigue. The peak blood pressure was 164 /70 mmHg. Rate-pressure product was 26,200. Conclusion Stress test with no EKG criteria for ischemia at a high workload Recommendation Anesthesia Recommendation Anesthesia recommendation: OPTIMIZED for anesthesia (Stress test from every 05/08/2025 is adequate. Optimized for anesthesia.)
[2025-05-22 04:07] LABS: Mumps Antibody,IgG 210.0 AU/mL (Immune >10.9); V-Zoster IgG (Immunity) Reactive (Non Reactive)
--- NOTE | 2025-06-01 17:54 | HP.PCM_ITS ---
History and Physical Date of Admission: 06/02/25 [facility] Emergency Department [address], [address] [place] [address] OFFICE VISIT Date of Service: 05/18/25 MR#: [id number] Acct: [id number] Name: ALPHONSO JARRETT Rep #: [id number] : 1990 Provider: Dr. Tracey Ryan MD Age/Sex: 35/F Location: 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 Is patient in pain?: No Feel stressed/tense/nervous/anxious/difficulty sleeping: not at all Allergies azithromycin (From Zithromax) Allergy (Verified 11/07/24 16:04) Rashamoxicillin Adverse Reaction (Verified 11/07/24 16:04) Vomitingred dye Adverse Reaction (Verified 11/07/24 16:04) Vomiting Medications ?Medication ?Instructions ?Recorded ?Confirmed ?Type NK 05/18/25 05/18/25 History Is last menstrual period known: Yes Last Menstrual Period: 10/30/24 Post menopausal: No Patient : No : No [facility] Medical History History of echocardiogram Wears glasses Anxiety Marijuana use Chronic cough Smoker History of edema Cardiology follow-up encounter History of irregular heartbeat Suicide attempt Anemia ADHD Alcohol use disorder, mild, in early remission PTSD (post-traumatic stress disorder) Generalized anxiety disorder Bipolar disorder, unspecified Alcohol abuse Tobacco use Anxiety and depression History of multiple pulmonary nodules Palpitations Varicosities of leg History of meningitis Genital herpes ASCUS with positive high risk HPV Surgical History History of hip surgery History of tubal ligation History of arthroscopic knee surgery History of varicose vein stripping Family History (Updated 04/07/25 @ 11:03 by Kathleen Lucia) Mother Anxiety and depression Bipolar disorder Polysubstance abuse STD (female) Drug abuseOther Alcoholism Arthritis Cancer Heart disease Mental disorder Myocardial infarction Social History household members: spouse and family Smoking Status: Current every day smoker tobacco type: cigars quit status: has quit before alcohol intake: current alcohol intake frequency: 3 or more drinks per day Alcohol type: beer details: 4-6, 12 ounce beers daily since age 18. substance use type: marijuana caffeine: Yes Type: carbonated beverages Number of servings: 2, coffee and tea what type of physical activity do you participate in: none seatbelt use: sometimes do you feel safe at home: Yes additional social history: - Ray HPI TVH BS possible LAVH Details: ALPHONSO JARRETT is a 35 year old who presents for preop visit. she had cervical stenosis and IUD was unable to be inserted in the past. she is having pelvic pain, dyspareunia, co heavy bleeding. she has gone through hormonal tapering wi th OCP for heavy bleeding to try and help but she still has issues and then is having progressive pain for the last 4-5 months that interferes with quality of life. She had an ultrasound that shows two small fibroids and questionable adenomyosis. declines further attempt at uterine sampling or iud insertion. Female Reproductive History Last Menstrual Period: 10/30/24 History 3 Elective abortions Hx Para 3 Spontaneous abortions Hx # Term Pregnancies Ectopic pregnancies Hx # Pregnancies Multiple births # of living children Past Pregnancies Del. Date Name GA/Weeks Outcome Route Bth Weight Infant Gen Labor Lgth Anesthesia Del Locatn Provider FOB Unknown Grace Unknown Alycia Unknown Chun ROS Const Constitutional: Denies fatigue, fever(s), headache(s), increased appetite, poor appetite, weight gain or weight loss ENT ENT: Reports system reviewed and no additional complaints, except as documented Cardio Card: Denies chest pain Resp Resp: Denies cough or dyspnea GI GI: Reports as per HPI and constipation; Denies abdominal pain, nausea or vomiting : Reports as per HPI and urinary frequency; Denies difficulty voiding, dysuria, nipple discharge, urinary incontinence, urinary hesitancy, urinary urgency, vaginal discharge, vaginal dryness, vaginal odor or vaginal pruritus Musc Musc: Denies arthralgias, back pain or muscle weakness Skin Skin/Breast: Denies change in hair, breast mass, breast pain, breast skin changes or nipple discharge Neuro Neuro: Reports system reviewed and no additional complaints, except as documented Psych Psych: Reports system reviewed and no additional complaints, except as documented Endo Endo: Denies cold intolerance, excessive sweating, heat intolerance or polydipsia Luis A/Lymph Hematologic/Lymphatic: Denies easy bleeding, Denies easy bruising and Denies lymphadenopathy Exam Const General: cooperative, healthy appearing, comfortable, no acute distress and well developed Nutritional Appearance: average body habitus Orientation: alert [facility] Head: normal to inspection and normocephalic Ears: hearing grossly normal bilaterally and external ears normal Nose: external nose normal and nares normal Face and sinus: normal facial exam Neck Neck: normal visual inspection, no lymphadenopathy and trachea midline Thyroid: thyroid normal Chest Chest palpation & inspection: normal inspection of the chest Resp Effort & Inspection: normal respiratory effort Auscultation: clear to auscultation bilaterally Cardio Rate: regular rate Rhythm: regular rhythm Heart Sounds: S1 normal and S2 normal GI Inspection: normal to inspection and non-distended Palpation: soft and no hepatosplenomegaly General: bladder normal to palpation External Female Exam: normal external appearance and normal appearance of the urethra Urethra: normal appearance of the urethra, normal palpation and no discharge Speculum Exam - Vagina: normal appearance of the vagina and normal vaginal discharge Speculum Exam - Cervix: normal appearance of the cervix Bimanual Exam- Vagina & Uterus: normal bimanual exam, uterine size normal, bladder normal to palpation, uterine shape normal, uterine mobility normal, consistency normal, normal palpation and tender Bimanual Exam- Adnexa, other: normal adnexae, adnexae mobile, no masses and normal Pelvic Support: normal Musc Other: gross motor intact no deficits, full bilateral strength Skin General: no rashes or lesions noted Neuro General: patient alert, patient awake, moves all extremities and no focal motor deficits Motor: muscle tone normal throughout Extrem General: normal to inspection and no pedal edema Psych Appearance: grossly normal Mental Status: mental status grossly normal Affect: normal affect Speech and Movement: speech and movement normal Coding Level of Care Code No Charge Diagnoses Dysmenorrhea N94.6 Abnormal uterine bleeding due to adenomyosis N93.9; N80.03 Assessment and Plan Assessment and Plan (1) Dysmenorrhea: Status: Acute Comment: plan TVHBS possible LAVH (2) Abnormal uterine bleeding due to adenomyosis: Status: Acute Comment: unable to insert IUD due to stenosis, unable to sample and obtain EMB, recommend TVHBS possible LAVH Plan After discussing the patient's diagnosis and treatment plan options, patient wishes to proceed with surgical management. I have discussed with the patient the risks, benefits, and alternatives of the procedure which include but are not limited to risks of anesthesia, bleeding, infection, possible damage to bowel, bladder, or surrounding vasculature which could lead to additional surgery to evaluate any complications. Patient agrees to procedure and wishes to proceed. ACOG/uptodate references given for additional information regarding procedure.
--- NOTE | 2025-06-01 17:54 | HP.PCM_ITS ---
History and Physical Date of Admission: 06/02/25 [facility] [address], [address] [place] [address] OFFICE VISIT Date of Service: 05/18/25 MR#: [id number] Acct: [id number] Name: ALPHONSO JARRETT Rep #: [id number] : 1990 Provider: Dr. Tracey Ryan MD Age/Sex: 35/F Location[place] [facility] [place]: Signed Intake Vital Signs 11/07/2416:04 05/18/2508:23 Height 5 ft 9 in 5 ft 9 in Weight: 193 lb 6 oz BMI 28.5 BP 144/83 H Intake Visit Reasons: TVH BS possible [facility] [employer] Required: No Is patient in pain?: No Feel stressed/tense/nervous/anxious/difficulty sleeping: not at all Allergies azithromycin (From Zithromax) Allergy (Verified 11/07/24 16:04) Rashamoxicillin Adverse Reaction (Verified 11/07/24 16:04) Vomitingred dye Adverse Reaction (Verified 11/07/24 16:04) Vomiting Medications ?Medication ?Instructions ?Recorded ?Confirmed ?Type NK 05/18/25 05/18/25 History Is last menstrual period known: Yes Last Menstrual Period: 10/30/24 Post menopausal: No Patient : No : No [facility] Medical History History of echocardiogram Wears glasses Anxiety Marijuana use Chronic cough Smoker History of edema Cardiology follow-up encounter History of irregular heartbeat Suicide attempt Anemia ADHD Alcohol use disorder, mild, in early remission PTSD (post-traumatic stress disorder) Generalized anxiety disorder Bipolar disorder, unspecified Alcohol abuse Tobacco use Anxiety and depression History of multiple pulmonary nodules Palpitations Varicosities of leg History of meningitis Genital herpes ASCUS with positive high risk HPV Surgical History History of hip surgery History of tubal ligation History of arthroscopic knee surgery History of varicose vein stripping Family History (Updated 04/07/25 @ 11:03 by Kathleen Lucia) Mother Anxiety and depression Bipolar disorder Polysubstance abuse STD (female) Drug abuseOther Alcoholism Arthritis Cancer Heart disease Mental disorder Myocardial infarction Social History household members: spouse and family Smoking Status: Current every day smoker tobacco type: cigars quit status: has quit before alcohol intake: current alcohol intake frequency: 3 or more drinks per day Alcohol type: beer details: 4-6, 12 ounce beers daily since age 18. substance use type: marijuana caffeine: Yes Type: carbonated beverages Number of servings: 2, coffee and tea what type of physical activity do you participate in: none seatbelt use: sometimes do you feel safe at home: Yes additional social history: - Ray HPI TVH BS possible [facility] Details: ALPHONSO JARRETT is a 35 year old who presents for preop visit. she had cervical stenosis and IUD was unable to be inserted in the past. she is having pelvic pain, dyspareunia, co heavy bleeding. she has gone through hormonal tapering wi th OCP for heavy bleeding to try and help but she still has issues and then is having progressive pain for the last 4-5 months that interferes with quality of life. She had an ultrasound that shows two small fibroids and questionable adenomyosis. declines further attempt at uterine sampling or iud insertion. Female Reproductive History Last Menstrual Period: 10/30/24 History 3 Elective abortions Hx Para 3 Spontaneous abortions Hx # Term Pregnancies Ectopic pregnancies Hx # Pregnancies Multiple births # of living children Past Pregnancies Del. Date Name GA/Weeks Outcome Route Bth Weight Infant Gen Labor Lgth Anesthesia Del Locatn Provider FOB Unknown Grace Unknown Alycia Unknown Chun ROS Const Constitutional: Denies fatigue, fever(s), headache(s), increased appetite, poor appetite, weight gain or weight loss ENT ENT: Reports system reviewed and no additional complaints, except as documented Cardio Card: Denies chest pain Resp Resp: Denies cough or dyspnea GI GI: Reports as per HPI and constipation; Denies abdominal pain, nausea or vomiting : Reports as per HPI and urinary frequency; Denies difficulty voiding, dysuria, nipple discharge, urinary incontinence, urinary hesitancy, urinary urgency, vaginal discharge, vaginal dryness, vaginal odor or vaginal pruritus Musc Musc: Denies arthralgias, back pain or muscle weakness Skin Skin/Breast: Denies change in hair, breast mass, breast pain, breast skin changes or nipple discharge Neuro Neuro: Reports system reviewed and no additional complaints, except as documented Psych Psych: Reports system reviewed and no additional complaints, except as documented Endo Endo: Denies cold intolerance, excessive sweating, heat intolerance or polydipsia Luis A/Lymph Hematologic/Lymphatic: Denies easy bleeding, Denies easy bruising and Denies lymphadenopathy Exam Const General: cooperative, healthy appearing, comfortable, no acute distress and well developed Nutritional Appearance: average body habitus Orientation: alert [facility] Head: normal to inspection and normocephalic Ears: hearing grossly normal bilaterally and external ears normal Nose: external nose normal and nares normal Face and sinus: normal facial exam Neck Neck: normal visual inspection, no lymphadenopathy and trachea midline Thyroid: thyroid normal Chest Chest palpation & inspection: normal inspection of the chest Resp Effort & Inspection: normal respiratory effort Auscultation: clear to auscultation bilaterally Cardio Rate: regular rate Rhythm: regular rhythm Heart Sounds: S1 normal and S2 normal GI Inspection: normal to inspection and non-distended Palpation: soft and no hepatosplenomegaly General: bladder normal to palpation External Female Exam: normal external appearance and normal appearance of the urethra Urethra: normal appearance of the urethra, normal palpation and no discharge Speculum Exam - Vagina: normal appearance of the vagina and normal vaginal discharge Speculum Exam - Cervix: normal appearance of the cervix Bimanual Exam- Vagina & Uterus: normal bimanual exam, uterine size normal, bladder normal to palpation, uterine shape normal, uterine mobility normal, consistency normal, normal palpation and tender Bimanual Exam- Adnexa, other: normal adnexae, adnexae mobile, no masses and normal Pelvic Support: normal Musc Other: gross motor intact no deficits, full bilateral strength Skin General: no rashes or lesions noted Neuro General: patient alert, patient awake, moves all extremities and no focal motor deficits Motor: muscle tone normal throughout Extrem General: normal to inspection and no pedal edema Psych Appearance: grossly normal Mental Status: mental status grossly normal Affect: normal affect Speech and Movement: speech and movement normal Coding Level of Care Code No Charge Diagnoses Dysmenorrhea N94.6 Abnormal uterine bleeding due to adenomyosis N93.9; N80.03 Assessment and Plan Assessment and Plan (1) Dysmenorrhea: Status: Acute Comment: plan TVHBS possible [facility] (2) Abnormal uterine bleeding due to adenomyosis: Status: Acute Comment: unable to insert IUD due to stenosis, unable to sample and obtain EMB, recommend TVHBS possible L[facility] Plan After discussing the patient's diagnosis and treatment plan options, patient wishes to proceed with surgical management. I have discussed with the patient the risks, benefits, and alternatives of the procedure which include but are not limited to risks of anesthesia, bleeding, infection, possible damage to bowel, bladder, or surrounding vasculature which could lead to additional surgery to evaluate any complications. Patient agrees to procedure and wishes to proceed. ACOG/uptodate references given for additional information regarding procedure.
[2025-06-02] VITALS (16 sets, daily range): BP systolic 107–135; BP diastolic 72–90; PULSE 53–86; RESP 14–16; TEMP 36.2–37; O2SAT 95–100; BMI 28.6
--- OUTSIDE RECORDS SUMMARY | 2025-06-02 05:35 | XMS RPT_ITS | CCD ---
Author Organization [facility] BILINGUAL LEGAL ASSISTANT [facility] Care Team Providers Care Lead Technician Name Role Phone Miguel TAVAREZ, Andry Bass Unavailable [phone] Nabil Wang PA-C Unavailable [phone] Rober Saba DO Primary Care Provider Rober Saba DO Primary Care Provider Rober Saba DO Primary Care Provider Rober Saba DO Primary Care Provider MAST BODY FORMER-MECHANICAL MAINTENANCE WORKER, FLOR Attending Unavailabl e MAST BODY FORMER-MECHANICAL MAINTENANCE WORKER, FLOR Primary Care Unavailabl e MAST BODY FORMER-MECHANICAL MAINTENANCE WORKER, FLOR Attending Unavailabl e MAST BODY FORMER-MECHANICAL MAINTENANCE WORKER, FLOR Primary Care Unavailabl e ROBER SABA [...] HARRIS Attending Unavailable Unavailable Primary Care Provider UnavailRohit Mejia Attending Unavailable Yasmine Beavers Primary Care Unavailable Charmaine Cisneros Referring Unavailable Angel Harris Consulting Unavailable Schinner, Yasmine E Primary Care Unavailable Rambo Tompkins Attending Unavailable MooddonaldpaAngel dennis Referring Unavailable Schinner, Yasmine E Referring Unavailable Schinner, Yasmine E Primary Care Unavailable Tracey Ryan Attending Unavailable Schinner, Yasmine E Consulting Unavailable MarcanthonyTracey Referring Unavailable Tracey Ryan Attending Unavailable Schinner, Yasmine E Primary Care Unavailable Schinner, Yasmine E Primary Care Unavailable Schinner, Yasmine E Referring Unavailable Tracey Ryan Attending Unavailable Schinner, Yasmine E Primary Care Unavailable Schinner, Yasmine E Referring Unavailable Bud STNA, Irene Attending Unavailable Schinner, Yasmine E Primary Care Unavailable Schinner, Yasmine E Referring Unavailable NoahanthonyTracey Attending Unavailable Rohit Conteh Attending Unavailable Schinner, Yasmine E Primary Care Unavailable Schinner, Yasmine E Referring Unavailable Schinner, Yasmine E Primary Care Unavailable Tracey Ryan Referring Unavailable CaitlynonyTracey Attending Unavailable Schinner, Yasmine E Primary Care Unavailable Herman Meza Attending Unavailable Schinner, Yasmine E Attending Unavailable Schinner, Yasmine E Primary Care Unavailable Schinner, Yasmine E Referring Unavailable Schinner, Yasmine E Primary Care Unavailable Zoe Duran Referring Unavailable RneeeZoe Attending Unavailable Schinner, Yasmine E Attending Unavailable Schinner, Yasmine E Referring Unavailable Schinner, Yasmine E Primary Care Unavailable Schinner, Yasmine E Primary Care Unavailable Angel Harris Referring Unavailable Angel Harris Attending Unavailable Schinner, Yasmine E Primary Care Unavailable Angel Gupta Referring Unavailable Angel Gupta Attending Unavailable Schinner, Yasmine E Primary Care Unavailable Schinner, Yasmine E Attending Unavailable Schinner, Yasmine E Referring Unavailable Schinner, Yasmine E Primary Care Unavailable Schinner, Yasmine E Referring Unavailable Schinner, Yasmine E Attending Unavailable Schinner, Yasmine E Primary Care Unavailable Charmaine Cisneros Attending Unavailable Charmaine Cisneros Referring Unavailable Allergies Allergy Classification Reported Allergen(s) Allergy Type Date of Onset Reaction(s) Facility (2 sources) Azithromycin Drug Allergy 1 rash [facility] Work Phone: (2 sources) RED DYE 40 drug allergy 1 [facility] Work Phone: (20 sources) Azithromycin; Translations: [AZITHROMYCIN] Drug Allergy 9 Rash [facility] (3 sources) Amoxicillin Drug Allergy 4 Vomiting, Nausea and Vomiting [facility] (1 source) Amoxicillin Drug Allergy [facility] (1 source) Azithromycin Drug Allergy [facility] (1 source) Amoxicillin Drug Allergy 4 [facility] (1 source) Azithromycin Drug Allergy 4 [facility] (1 source) Contrast media Drug allergy (disorder) 4 [facility] Repository Medications Current Medications Medication Drug Class(es) [...] on above: Take 1 tablet by willian at bedtime as needed for up to [...] sources) Cephalosporin Antibacterial Start: 01-20-20 End: 01-27-20 take 1 capsule by mouth four times daily cephALEXin (KEFLEX) 500 mg capsule Take 1 capsule by mouth four times daily for 7 days. 28 capsule 0 01/20/2024 01/27/2024 Active Comment on above: Take 1 capsule by mo [facility] four times daily for 7 days. doxycycline monohydrate 100 mg oral tablet (1 source) Tetracycline-class Drug Start: 01-22-20 End: 01-29-20 take 1 tablet by mouth twice daily doxycycline monohydrate 100 mg tablet Take 1 tablet by mouth two times a day for 7 days. 14 tablet 0 01/22/2024 01/29/2024 Active Comment on above: Take 1 tablet by willian two times a day for 7 days. naproxen 250 mg oral tablet (1 source) Nonsteroidal Anti-inflammatory Drug Start: 01-08-20 End: 02-08-20 take 1 tablet by mouth once NAPROXEN 250 MG TABS Take 1 tablet by mouth every twelve hours naproxen [id number] Nabil Wang PA-C Completed/Discontinued Medications Medication Drug [...] Take as needed for muscle spasm baclofen [id number] Nabil Wang PA-C cholecalciferol 0.125 mg oral capsule (13 sources) Vitamin D Start: 06-16-2022 End: 12-18-2022 take 1 capsule by mouth once daily Cholecalciferol, Vitamin D3, 125 mcg (5,000 unit) cap Indications: Vitamin D deficiency Take 1 capsule by mouth once daily. 90 capsule 3 06/16/2022 12/18/2022 Discontinued (Discontinued by Patient) Comment on above: Take 1 capsule by mo [facility] once daily. gabapentin 300 mg oral [...] on above: Take 1 capsule by [facility] three times daily for 30 days. [...] on above: Take 1 capsule by mo uth daily before breakfast. 1/2 hr before meal. ondansetron 4 mg oral tablet (2 sources) Serotonin-3 Receptor Antagonist Start: 01-08-20 ONDANSETRON HCL 4 MG TABS Take 1 tablet by mouth every eight hours as needed May take up to 2 tablets as needed. ondansetron hcl [id number] Nabil Wang PA-C QUEtiapine 200 mg oral [...] 50mg, max dose 300mg for >65y/o tramadol [id number] Andry Rivera MD traZODone hydrochloride 100 mg oral tablet (20 sources) Serotonin Reuptake Inhibitor Start: End: take 1 tablet by mouth once daily [...] thigh] Onset: 12-10-2020 12-10-2020 Chronic Menstrual disorders (2 sources) Dysmenorrhea, unspecified; Translations: [Excessive and frequent menstruation with regular cycle] Onset: 09-18-2024 Chronic Miscellaneous mental health disorders (20 sources) Chronic insomnia; Translations: [Psychophysiologic insomnia] Onset: 09-10-2019 09-10-2019 Chronic Mood disorders (20 sources) Bipolar disorder, most recent episode depression; Translations: [Bipolar disorder, in partial remission, most recent episode depressed] Onset: 09-24-2020 09-24-2020 Chronic Nausea and vomiting (1 source) Vomiting, unspecified; Translations: [Vomiting, unspecified] Onset: 04-23-2024 Episodic Nonmalignant breast conditions (1 source) Galactorrhea not associated with childbirth; Translations: [Galactorrhea not associated with childbirth] Onset: 05-20-2025 Episodic Nonspecific chest pain (5 sources) Chest [...] pain; Translations: [Myalgia, unspecified site] Episodic Other connective tissue disease (1 source) Pain in right leg; Translations: [Pain in right leg] Onset: 04-30-2025 Episodic Other female genital disorders (1 source) Abnormal uterine and vaginal bleeding, unspecified; Translations: [Abnormal uterine and vaginal bleeding, unspecified] Onset: 05-18-2025 Chronic Other gastrointestinal disorders (2 sources) Dysphagia; Translations: [...] Translations: [Pain in unspecified joint] Episodic Other non-traumatic joint disorders (1 source) Pain in left hip; Translations: [Pain in left hip] Onset: 05-11-2025 Episodic Other upper respiratory disease (1 source) [...] (1 source) NO SHOW Unclassified (1 source) Adenomyosis of the uterus; Translations: [Adenomyosis of the uterus] Onset: 05-18-2025 Unclassified (1 source) Cough, unspecified; Translations: [Cough, [...] Test Name Value Interpretation Reference Range Facility L3400.0005on 05-22-2025 V ZOSTER IgG Reactive Normal Non Reactive [facility] Comment on above: Order Comment: Order Date: 05/19/25Order Info: [id number] - RUBEOGOrder Info: - MUG Result Comment: Pl ease note reference interval change A Reactive result is considered evidence of immunity to VZV. Reactive indicates that VZV IgG was detected consistent with previous infection and/or vaccination. A Non Reactive result indicates that VZV IgG was not detected suggesting that immunity has not been acquired. Performed By: #### L 509.4006, L3400.0005 ####[facility] [id number] [place], [place], [address] Mumps Antibody,IgGon 025 MUMPS Ab, IgG 210.0 AU/mL Normal Immune >10.9 [facility] Comment on above: Order Comment: Order Date: 05/19/25 Order Info: [id number] - RUBEOG Order Info: [id number] - MUG Result Comment: Nega tive <9.0 Equivocal 9.0 - 10.9 Positive >10.9 A positive result generally indicates past exposure to Mumps virus or previous vaccination. Performed By: #### L 3400.1750, L3100.3300 #### [facility] [address] [place], [place], [id number] Rubeola IgG Abon 05-22-2025 RUBEOLA Ab, IgG > 300.0 High Immune >16.4 [facility] Comment on above: Order Comment: Order Date: 05/19/25 Order Info: [id number] - RUBEOG Order Info: [id number] - MUG Result Comment: Clie nt Requested Flag Negative <13.5 Equivocal 13.5 - 16.4 Positive >16.4 Presence of antibodies to Rubeola is presumptive evidence of immunity except when acute infection is suspected. Performed at: [address] [id number] Web Site Manager: Steven Bruner PhD, Phone: [phone] Performed By: #### L 3400.1750, L3100.3300 #### [facility] [address] [place], [place], [address] [id number] 05-20-2025 ANTIBODY ID M Normal [facility] Comment on above: Order Comment: Surge ry Date: 06/02/25 07:30 Operating Room 6HSUSANA HOOD [id number] [facility] 35/F 89 Hysterectomy,Vaginal Poss LAVH,Bilateral Salpingectomy (Bilateral) S.Jam for Laboratory Test PREOPPROTOCOL UNITS ORDERED DUE TO ALLOANTIBODY(S).[id number] RADHA Performed By: #### B TSPAT, BANNER, [id number], L501.5200 ####[facility] [id number] [place], [address] BRCon 05-20-2025 RC Normal [facility] Comment on above: Result Comment: [id number] OP RC READY [id number] OP RC READY Performed By: #### B TSPAT, BANNER, [id number], L501.5200 ####[facility] [id number] [place], [address] L509.4006on 05-20-2025 Rubella IgG REAC Normal Nonreactive [facility] Comment on above: Result Comment: Anti body Result: Interpretation Non-Reactive: Non-Immune Reactive: Immune The following results were obtained with the [employer] Rubella IgG assay. Results from assays of other manufacturers cannot be used interchangeably. Performed By: #### L 509.4006, L3400.0005 #### [facility] [address] [place], [address] MR/PATEugenio 05-20-2025 MR/PAT.[facility] Medical Records Department [address] [place] [address] PAT - Anesthesia 05/20/25 191 MR#: [id number] Acct: [id number] Name: SUSANA MCCLAIN Rep #: [id number] : 1990 35 From: Humberto Bell MD PCP: Dr. Yasmine Beavers MD Status:PRE SDC Y Race: C Location: [facility] Pre-Assessment Diagnosis/Proposed Procedure Planned Operative Procedure(s): (B) Hysterectomy,Vaginal Poss LAVH, Bilateral Salpingectomy Anesthesia History Anesthesia History - statistical analyst: Anesthesia History - statistical analyst Hx Hospitalization No 05/19/25 08:48 Any Problems With Anesthesia No 05/19/25 08:48 Cholinesterase deficiency No 05/19/25 08:48 You/Your Family Experience No: ADOPTED 05/19/25 08:48 fever (hyperthermia) with Relationship Recent Exposure to Contagious No 12/31/23 11:13 Disease Does patient have nerve No 05/19/25 08:48 stimulator Patient instructed to have device shut off --Does patient have Pacemaker or ICD? When Was Last Pacemaker Check QUESTION #4 FULL TEXT: You/Your Family Experience fever (hyperthermia) with Anesthesia Last Oral Intake Last Oral intake: Last Oral Intake NPO since Meds taken in AM with sips of water? Meds patient instructed to take am of surgery PONV PONV - statistical analyst: PONV - statistical analyst Female Yes 05/19/25 08:48 HX of Motion Sickness No 05/19/25 08:48 HX of N/V After Surgery No 05/19/25 08:48 Non-Smoker No 05/19/25 08:48 Duration of Surgery greater No 05/19/25 08:48 than 60 minutes Number of Risk Factors 1 05/19/25 08:48 PONV Score Low Risk 05/19/25 08:48 Height Weight Height Weight: Anesthesia: Height Weight Height 5 ft 9 in 11/07/24 16:04 Respiratory Assessment Respiratory Assessment - statistical analyst: Respiratory Tract Infection Hx - statistical analyst Hx Respiratory Tract Infection No 05/19/25 08:48 STOP Sleep Apnea STOP Sleep Apnea - statistical analyst: STOP Sleep Apnea - statistical analyst Hx Hypertension No 05/19/25 08:48 Hx Sleep Apnea No 05/19/25 08:48 CPAP BIPAP Do you snore loudly (louder No 05/19/25 08:48 than talking or can be heard Do you often feel tired/ No 05/19/25 08:48 fatigued/ sleepy during daytime? Has anyone observed you stop No 05/19/25 08:48 breathing during sleep? STOP Results Negative 05/19/25 08:48 QUESTION #5 FULL TEXT : Do you snore loudly (louder than talking or can be heard through closed doors)? Tobacco Use History Tobacco Use History - statistical analyst: Tobacco Use History - statistical analyst Tobacco Use Smoking Status Current every day smoker 05/19/25 08:48 Hx Tobacco Use Yes 05/19/25 08:48 Years Smoking Packs Smoked per Day Smoking Cessation Date was within the last 15 years Hx Smoking Cessation Date Hx Smoking Cessation Counseling Hematologic Medial History Hematologic Hx - statistical analyst: Hematologic Medical Hx - skates operator Hx of Blood Transfusion No 05/19/25 08:48 Hx of Transfusion in last 3 No 05/19/25 08:48 Months Date of Last Transfusion (if within last 3 months) Ever experience any problems No 05/19/25 08:48 with transfusion(s)? Specify any problems Hx of Preganancy in last 3 No 05/19/25 08:48 Months Nurse Filling Out Transfusion [facility] 05/19/25 08:48 Questions: Date: 05/19/25 05/19/25 08:48 Time: 08:56 05/19/25 08:48 Patient unable to answer at this time (ie. confused, unrespo /Reproducti on History /Reproducti ve History - statistical analyst: /Reproducti ve Hx- statistical analyst Hx Now No 05/19/25 08:48 Gestational Age (in weeks): EDC: Hx Hx Para Hx Section SAB No 05/19/25 08:48 [facility] Medical History (Updated 05/19/25 @ 08:54 by Sandy Nicolas) MRSA infection Gastric reflux History of Holter monitoring History of stress test History of echocardiogram Wears glasses Anxiety Marijuana [...] herpes ASCUS with positive high risk HPV Home Medications ???Medication ???Instructions ???Recorded ???Last Taken ???Type NK 05/18/25 Unknown History Allergy/AdvReac Type Severity Reaction Status Date / Time azithromycin (F (more content not included)... Normal [facility] Magnesiumon 05-20-2025 Magnesium [Mass/Vol] 2.3 mg/dL High 1.5-2.2 [facility] Comment on above: Performed By: #### B TSPAT, BR, [id number], L501.5200 ####[facility] [address] [place], [place], [address] Type AND Screen - PAT ONLYon 05-20-2025 Ab SCREEN GEL Positive Normal [facility] Comment on above: Order Comment: Surge ry Date: 06/02/25Reason for Laboratory Test [id number] Performed By: #### B TSPAT, BR, [id number], L501.5200 ####[facility] [address] [place], [place], [address] MR/PAT.ANEon 05-19-2025 MR/PAT.[facility] Medical Records Department [address] [place] [address] PAT - Anesthesia 05/19/25 1839 MR#: [id number] Acct: [id number] Name: SUSANA MCCLAIN Rep #: [id number] : 1990 35 From: Davi Palmer MD PCP: Dr. Yasmine Beavers MD Status:PRE [facility] Y Race: C Location: [facility] Pre-Assessment Diagnosis/Proposed Procedure Planned Operative Procedure(s): (B) Hysterectomy,Vaginal Poss LAVH, Bilateral Salpingectomy Anesthesia History Anesthesia History - statistical analyst: Anesthesia History - statistical analyst Hx Hospitalization No 05/19/25 08:48 Any Problems With Anesthesia No 05/19/25 08:48 Cholinesterase deficiency No 05/19/25 08:48 You/Your Family Experience No: ADOPTED 05/19/25 08:48 fever (hyperthermia) with Relationship Recent Exposure to Contagious No 12/31/23 11:13 Disease Does patient have nerve No 05/19/25 08:48 stimulator Patient instructed to have device shut off --Does patient have Pacemaker or ICD? When Was Last Pacemaker Check QUESTION #4 FULL TEXT: You/Your Family Experience fever (hyperthermia) with Anesthesia Last Oral Intake Last Oral intake: Last Oral Intake NPO since Meds taken in AM with sips of water? Meds patient instructed to take am of surgery PONV PONV - statistical analyst: PONV - statistical analyst Female Yes 05/19/25 08:48 HX of Motion Sickness No 05/19/25 08:48 HX of N/V After Surgery No 05/19/25 08:48 Non-Smoker No 05/19/25 08:48 Duration of Surgery greater No 05/19/25 08:48 than 60 minutes Number of Risk Factors 1 05/19/25 08:48 PONV Score Low Risk 05/19/25 08:48 Height Weight Height Weight: Anesthesia: Height Weight Height 5 ft 9 in 11/07/24 16:04 Respiratory Assessment Respiratory Assessment - statistical analyst: Respiratory Tract Infection Hx - statistical analyst Hx Respiratory Tract Infection No 05/19/25 08:48 STOP Sleep Apnea STOP Sleep Apnea - statistical analyst: STOP Sleep Apnea - statistical analyst Hx Hypertension No 05/19/25 08:48 Hx Sleep Apnea No 05/19/25 08:48 CPAP BIPAP Do you snore loudly (louder No 05/19/25 08:48 than talking or can be heard Do you often feel tired/ No 05/19/25 08:48 fatigued/ sleepy during daytime? Has anyone observed you stop No 05/19/25 08:48 breathing during sleep? STOP Results Negative 05/19/25 08:48 QUESTION #5 FULL TEXT : Do you snore loudly (louder than talking or can be heard through closed doors)? Tobacco Use History Tobacco Use History - statistical analyst: Tobacco Use History - statistical analyst Tobacco Use Smoking Status Current every day smoker 05/19/25 08:48 Hx Tobacco Use Yes 05/19/25 08:48 Years Smoking Packs Smoked per Day Smoking Cessation Date was within the last 15 years Hx Smoking Cessation Date Hx Smoking Cessation Counseling Hematologic Medial History Hematologic Hx - statistical analyst: Hematologic Medical Hx - skates operator Hx of Blood Transfusion No 05/19/25 08:48 Hx of Transfusion in last 3 No 05/19/25 08:48 Months Date of Last Transfusion (if within last 3 months) Ever experience any problems No 05/19/25 08:48 with transfusion(s)? Specify any problems Hx of Preganancy in last 3 No 05/19/25 08:48 Months Nurse Filling Out Transfusion AVERYADDISONMISTY 05/19/25 08:48 Questions: Date: 05/19/25 05/19/25 08:48 Time: 08:56 05/19/25 08:48 Patient unable to answer at this time (ie. confused, unrespo /Reproducti on History /Reproducti ve History - statistical analyst: /Reproducti ve Hx- statistical analyst Hx Now No 05/19/25 08:48 Gestational Age (in weeks): EDC: Hx Hx Para Hx Section SAB No 05/19/25 08:48 [facility] Medical History (Updated 05/19/25 @ 08:54 by Sandy Nicolas) MRSA infection Gastric reflux History of Holter monitoring History of stress test History of echocardiogram Wears glasses Anxiety Marijuana [...] herpes ASCUS with positive high risk HPV Home Medications ???Medication ???Instructions ???Recorded ???Last Taken ???Type NK 05/18/25 Unknown History Allergy/AdvReac Type Severity Reaction Status Date / Time azithromycin (From (more content not included)... Normal [facility] PROLACTIN 4465on 05-19-2025 PROLACTIN 18.4 ng/mL Normal 4.8-33.4 [facility] Comment on above: Result Comment: Perf ormed at: CB - [facility] [address] [id number] Web Site Manager: Steven Bruner PhD, Phone: [phone] Performed By: #### L 7160.7146 #### [facility] [place], [address] Packaging Tech Office Visit Reporton 05-18-2025 Packaging Tech Office Visit Report [facility] [address], [address] [place] [address] OFFICE VISIT Date of Service: 05/18/25 MR#: [id number] Acct: [id number] Name: SUSANA MCCLAIN Rep #: [id number] : 1990 Provider: Dr. Tracey willis MD Age/Sex: 35/F Location: 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 Required: No Is patient in pain?: No Feel stressed/tense/nervo us/anxious/difficult y sleeping: not at all Allergies azithromycin (From Zithromax) Allergy (Verified 11/07/24 16:04) Rash amoxicillin Adverse Reaction (Verified 11/07/24 16:04) Vomiting red dye Adverse Reaction (Verified 11/07/24 16:04) Vomiting Medications ???Medication ???Instructions ???Recorded ???Confirmed ???Type NK 05/18/25 05/18/25 History Is last menstrual period known: Yes [...] History of varicose vein stripping Family History (Updated 04/07/25 @ 11:03 by Kathleen Lucia) Mother Anxiety and depression Bipolar disorder Polysubstance abuse STD (female) Drug abuse Other Alcoholism Arthritis Cancer Heart disease Mental disorder Myocardial infarction Social History household members: spouse [...] Yes additional social history: - Ray HPI TVH BS possible LAVH Details: SUSANA MCCLAIN is a 35 year old who presents for preop visit. she had cervical stenosis and IUD was unable to be inserted in the past. she is having pelvic pain, dyspareunia, co heavy bleeding. she has gone through hormonal tapering with OCP for heavy bleeding to try and help but she still has issues and then is having progressive pain for the [...] poor appetite, weight gain or weight loss ENT ENT: Reports system reviewed and no additional complaints, except as documented Cardio Card: Denies chest pain Resp Resp: Denies cough or dyspnea GI GI: Reports as per HPI and constipation; Denies abdominal pain, nausea or vomiting : Reports as per HPI and urinary frequency; Denies difficulty voiding, dysuria, nipple discharge, urinary incontinence, urinary hesitancy, urinary urgency, vaginal discharge, vaginal dryness, vaginal odor or vaginal pruritus Musc Musc: Denies arthralgias, back pain or muscle weakness Skin Skin/Breast: Denies change in hair, breast mass, breast pain, breast skin changes or nipple discharge Neuro Neuro: Reports system reviewed and no additional complaints, except as documented Psych Psych: Reports system reviewed and no additional complaints, except as documented Endo Endo: De (more content not included)... Normal [facility] ANTINUCLEAR ANTIBODIES DIREC Ton 05-07-2025 MARY,DIRECT Negative Normal Negative [facility] Comment on above: Order Comment: Order Date: 05/05/25Order Info: [id number] - MARY Result Comment: Perf ormed at: [address] [id number] Web Site Manager: Steven Bruner PhD, Phone: [phone] Performed By: #### L 505.7010, L100.0100, L7000.5300, L500.4050, L101.9900, L3100.5475 ####[facility] [address] [place], [address] Lyme Screen W/Reflex WBon LYME SCREEN Ab Negative Normal Negative [facility] Comment on above: Order Comment: Order Date: 05/05/25Order Info: [id number] - LYMS Result Comment: Lyme antibodies not detected. Reflex testing is not indicated. No laboratory evidence of infection with B. burgdorferi (Lyme disease). Negative results may occur in patients recently infected (less than or equal to 14 days) with B. burgdorferi. If recent infection is suspected, repeat testing on a new sample collected in 7 to 14 days is recommended. Performed at: [address] [id number] Web Site Manager: Steven Bruner PhD, Phone: [phone] Performed By: #### L 505.7010, L100.0100, L7000.5300, L500.4050, L101.9900, L3100.5475 ####[facility] [address] [place], [place], [address] CBC W/Diff, Automatedon 04-19 Absolute Lymph 3.75 X10 3/uL Normal 0.83-4.51 [facility] Comment on above: Order Comment: Order Date: 05/05/25Order Info: 0184-1 - CBCDOrder Info: 33665-6 - SED Performed By: #### L 505.7010, L100.0100, L7000.5300, L500.4050, L101.9900, L3100.5475 ####[facility] [address] [place], [address] Absolute Neut 8.1 X10 3/uL High 2.0-7.7 [facility] Comment on above: Order Comment: Order Date: 05/05/25Order Info: 0184- - CBCDOrder Info: 10092-2 - SED Performed By: #### L 505.7010, L100.0100, L7000.5300, L500.4050, L101.9900, L3100.5475 ####[facility] [address] [place], [address] Basophils/100 WBC (Bld) 0.5 % Normal 0-1 [facility] Comment on above: Order Comment: Order Date: 05/05/25Order Info: 01802-17 - CBCDOrder Info: 87678-5 - SED Performed By: #### L 505.7010, L100.0100, L7000.5300, L500.4050, L101.9900, L3100.5475 ####[facility] [address] [place], [address] Eosinophils/100 WBC (Bld) 1.5 % Normal 0-5 [facility] Comment on above: Order Comment: Order Date: 05/05/25Order Info: 0184- - CBCDOrder Info: 43017-0 - SED Performed By: #### L 505.7010, L100.0100, L7000.5300, L500.4050, L101.9900, L3100.5475 ####[facility] [address] [place], [address] Erythrocyte distribution width (RBC) [Ratio] 12.9 % Normal 11.6-14.6 [facility] Comment on above: Order Comment: Order Date: 05/05/25Order Info: 0184- - CBCDOrder Info: 29394-3 - SED Performed By: #### L 505.7010, L100.0100, L7000.5300, L500.4050, L101.9900, L3100.5475 ####[facility] [address] [place], [address] Hematocrit (Bld) [Volume fraction] 37.5 % Normal 37-47 [facility] Comment on above: Order Comment: Order Date: 05/05/25Order Info: 0184-1 - CBCDOrder Info: 52380-2 - SED Performed By: #### L 505.7010, L100.0100, L7000.5300, L500.4050, L101.9900, L3100.5475 ####[facility] [address] [place], [address] Hemoglobin (Bld) [Mass/Vol] 12.8 g/dL Normal 12.0-15.0 [facility] Comment on above: Order Comment: Order Date: 05/05/25Order Info: 0184-1 - CBCDOrder Info: 25746-1 - SED Performed By: #### L 505.7010, L100.0100, L7000.5300, L500.4050, L101.9900, L3100.5475 ####[facility] [address] [place], [address] IG% 0.200 Normal 0.0-0.9 [facility] Comment on above: Order Comment: Order Date: 05/05/25Order Info: 0184-1 - CBCDOrder Info: 88732-0 - SED Result Comment: IG% - Immature Granulocytes (promyelocytes, myelocytes and metamyelocytes) > 1% indicates that a LEFT SHIFT is Present. Performed By: #### L 505.7010, L100.0100, L7000.5300, L500.4050, L101.9900, L3100.5475 ####[facility] [address] [place], [address] Lymphocytes/100 WBC (Bld) 28.8 % Normal 19-41 [facility] Comment on above: Order Comment: Order Date: 05/05/25Order Info: 018- - CBCDOrder Info: 50412-5 - SED Performed By: #### L 505.7010, L100.0100, L7000.5300, L500.4050, L101.9900, L3100.5475 ####[facility] [address] [place], [address] MCH (RBC) [Entitic mass] 28.6 pg Normal 27.0-32.0 [facility] Comment on above: Order Comment: Order Date: 05/05/25Order Info: 183-1 - CBCDOrder Info: 77844-2 - SED Performed By: #### L 505.7010, L100.0100, L7000.5300, L500.4050, L101.9900, L3100.5475 ####[facility] [address] [place], [address] MCHC (RBC) [Mass/Vol] 34.1 g/dL Normal 32-36 [facility] Comment on above: Order Comment: Order Date: 05/05/25Order Info: 018- - CBCDOrder Info: 84079-9 - SED Performed By: #### L 505.7010, L100.0100, L7000.5300, L500.4050, L101.9900, L3100.5475 ####[facility] [address] [place], [address] MCV (RBC) [Entitic vol] 83.9 fL Normal 81-99 [facility] Comment on above: Order Comment: Order Date: 05/05/25Order Info: 018- - CBCDOrder Info: 61576-0 - SED Performed By: #### L 505.7010, L100.0100, L7000.5300, L500.4050, L101.9900, L3100.5475 ####[facility] [address] [place], [address] Monocytes/100 WBC (Bld) 6.4 % Normal 0-10 [facility] Comment on above: Order Comment: Order Date: 05/05/25Order Info: 0184- - CBCDOrder Info: 53278-1 - SED Performed By: #### L 505.7010, L100.0100, L7000.5300, L500.4050, L101.9900, L3100.5475 ####[facility] [address] [place], [address] Neutrophils/100 WBC (Bld) 62.6 % Normal 47-70 [facility] Comment on above: Order Comment: Order Date: 05/05/25Order Info: 0184- - CBCDOrder Info: 21578-2 - SED Performed By: #### L 505.7010, L100.0100, L7000.5300, L500.4050, L101.9900, L3100.5475 ####[facility] [address] [place], [address] Nucleated RBC (Bld) [#/Vol] 0 10*3/uL Normal 0-5 [facility] Comment on above: Order Comment: Order Date: 05/05/25Order Info: 0184-1 - CBCDOrder Info: 10419-8 - SED Performed By: #### L 505.7010, L100.0100, L7000.5300, L500.4050, L101.9900, L3100.5475 ####[facility] [address] [place], [address] Platelet mean volume (Bld) [Entitic vol] 10.4 fL Normal 6.2-12.0 [facility] Comment on above: Order Comment: Order Date: 05/05/25Order Info: 0184-1 - CBCDOrder Info: 09469-4 - SED Performed By: #### L 505.7010, L100.0100, L7000.5300, L500.4050, L101.9900, L3100.5475 ####[facility] [address] [place], [address] Platelets (Bld) [#/Vol] 276 10*3/uL Normal 150-450 [facility] Comment on above: Order Comment: Order Date: 05/05/25Order Info: 0184- - CBCDOrder Info: 20937-2 - SED Performed By: #### L 505.7010, L100.0100, L7000.5300, L500.4050, L101.9900, L3100.5475 ####[facility] [address] [place], [address] RBC (Bld) [#/Vol] 4.47 10*6/uL Normal 4.2-5.4 [facility] Comment on above: Order Comment: Order Date: 05/05/25Order Info: 018- - CBCDOrder Info: 87839-9 - SED Performed By: #### L 505.7010, L100.0100, L7000.5300, L500.4050, L101.9900, L3100.5475 ####[facility] [address] [place], [address] RDW SD 39.7 fl Normal 35.1-43.9 [facility] Comment on above: Order Comment: Order Date: 05/05/25Order Info: 0184- - CBCDOrder Info: 20057-9 - SED Performed By: #### L 505.7010, L100.0100, L7000.5300, L500.4050, L101.9900, L3100.5475 ####[facility] [address] [place], [address] WBC (Bld) [#/Vol] 13.0 10*3/uL High 4.4-11.0 [facility] Comment on above: Order Comment: Order Date: 05/05/25Order Info: 0184-1 - CBCDOrder Info: 01177-1 - SED Performed By: #### L 505.7010, L100.0100, L7000.5300, L500.4050, L101.9900, L3100.5475 ####[facility] [address] [place], [address] Comprehensive Metabolic Prof ilon 05-05-2025 Albumin [Mass/Vol] 4.2 g/dL Normal 3.5-5.0 [facility] Comment on above: Order Comment: Order Date: 05/05/25Order Info: 0786-1 - CMPOrder Info: 73506-8 - RA Performed By: #### L 505.7010, L100.0100, L7000.5300, L500.4050, L101.9900, L3100.5475 ####[facility] [address] [place], [address] Albumin/Globulin [Mass ratio] 1.4 {ratio} Normal 0.9-2.4 [facility] Comment on above: Order Comment: Order Date: 05/05/25Order Info: 0786-1 - CMPOrder Info: 93783-3 - RA Performed By: #### L 505.7010, L100.0100, L7000.5300, L500.4050, L101.9900, L3100.5475 ####[facility] [address] [place], [address] ALK PHOS 51 U/L Normal 35-104 [facility] Comment on above: Order Comment: Order Date: 05/05/25Order Info: 0786-1 - CMPOrder Info: 00302-2 - RA Performed By: #### L 505.7010, L100.0100, L7000.5300, L500.4050, L101.9900, L3100.5475 ####[facility] [address] [place], [address] ALT [Catalytic activity/Vol] 13 U/L Normal <=34 [facility] Comment on above: Order Comment: Order Date: 05/05/25Order Info: 0786-1 - CMPOrder Info: 05599-1 - RA Performed By: #### L 505.7010, L100.0100, L7000.5300, L500.4050, L101.9900, L3100.5475 ####[facility] [address] [place], [address] AST [Catalytic activity/Vol] 20 U/L Normal <=31 [facility] Comment on above: Order Comment: Order Date: 05/05/25Order Info: 0786-1 - CMPOrder Info: 23252-8 - RA Performed By: #### L 505.7010, L100.0100, L7000.5300, L500.4050, L101.9900, L3100.5475 ####[facility] [address] [place], [address] Bilirubin [Mass/Vol] 0.28 mg/dL Normal 0.00-1.30 [facility] Comment on above: Order Comment: Order Date: 05/05/25Order Info: 0786-1 - CMPOrder Info: 80526-1 - RA Performed By: #### L 505.7010, L100.0100, L7000.5300, L500.4050, L101.9900, L3100.5475 ####[facility] [address] [place], [address] BUN/CRE 8.5 RATIO Low 10-20 [facility] Comment on above: Order Comment: Order Date: 05/05/25Order Info: 0786-1 - CMPOrder Info: 85837-3 - RA Performed By: #### L 505.7010, L100.0100, L7000.5300, L500.4050, L101.9900, L3100.5475 ####[facility] [address] [place], [address] Calcium [Mass/Vol] 8.9 mg/dL Normal 7.6-11.0 [facility] Comment on above: Order Comment: Order Date: 05/05/25Order Info: 0786-1 - CMPOrder Info: 94157-8 - RA Performed By: #### L 505.7010, L100.0100, L7000.5300, L500.4050, L101.9900, L3100.5475 ####[facility] [address] [place], [address] Chloride [Moles/Vol] 103 mmol/L Normal 98-108 [facility] Comment on above: Order Comment: Order Date: 05/05/25Order Info: 0786-1 - CMPOrder Info: 56699-2 - RA Performed By: #### L 505.7010, L100.0100, L7000.5300, L500.4050, L101.9900, L3100.5475 ####[facility] [address] [place], [place], [address] CO2 [Moles/Vol] 23.0 mmol/L Normal 21.0-32.0 [facility] Comment on above: Order Comment: Order Date: 05/05/25Order Info: 0786-1 - CMPOrder Info: 66856-4 - RA Performed By: #### L 505.7010, L100.0100, L7000.5300, L500.4050, L101.9900, L3100.5475 ####[facility] [address] [place], [address] Creatinine [Mass/Vol] 0.86 mg/dL Normal 0.70-1.20 [facility] Comment on above: Order Comment: Order Date: 05/05/25Order Info: 0786-1 - CMPOrder Info: 02651-2 - RA Performed By: #### L 505.7010, L100.0100, L7000.5300, L500.4050, L101.9900, L3100.5475 ####[facility] [address] [place], [address] GAP 11 Normal 5-15 [facility] Comment on above: Order Comment: Order Date: 05/05/25Order Info: 0786-1 - CMPOrder Info: 64536-2 - RA Performed By: #### L 505.7010, L100.0100, L7000.5300, L500.4050, L101.9900, L3100.5475 ####[facility] [address] [place], [address] GFR/1.73 sq M.predicted among non-blacks MDRD (S/P/Bld) [Vol rate/Area] 91 mL/min/{1.73_m2} Normal >60 [facility] Comment on above: Order Comment: Order Date: 05/05/25Order Info: 0786-1 - CMPOrder Info: 32533-0 - RA Result Comment: mL/m in/1.73m2 CKD-EPI Creatinine Equation (2020) Performed By: #### L 505.7010, L100.0100, L7000.5300, L500.4050, L101.9900, L3100.5475 ####[facility] [address] [place], [address] Globulin (S) [Mass/Vol] 3.0 g/dL Normal 2.2-4.2 [facility] Comment on above: Order Comment: Order Date: 05/05/25Order Info: 0786-1 - CMPOrder Info: 27999-4 - RA Performed By: #### L 505.7010, L100.0100, L7000.5300, L500.4050, L101.9900, L3100.5475 ####[facility] [address] [place], [address] Glucose [Mass/Vol] 90 mg/dL Normal 70-99 [facility] Comment on above: Order Comment: Order Date: 05/05/25Order Info: 0786-1 - CMPOrder Info: 55132-2 - RA Performed By: #### L 505.7010, L100.0100, L7000.5300, L500.4050, L101.9900, L3100.5475 ####[facility] [address] [place], [address] Potassium [Moles/Vol] 3.6 mmol/L Normal 3.3-5.1 [facility] Comment on above: Order Comment: Order Date: 05/05/25Order Info: 0786-1 - CMPOrder Info: 89258-4 - RA Performed By: #### L 505.7010, L100.0100, L7000.5300, L500.4050, L101.9900, L3100.5475 ####[facility] [address] [place], [address] Sodium [Moles/Vol] 138 mmol/L Normal 133-145 [facility] Comment on above: Order Comment: Order Date: 05/05/25Order Info: 0786-1 - CMPOrder Info: 68994-6 - RA Performed By: #### L 505.7010, L100.0100, L7000.5300, L500.4050, L101.9900, L3100.5475 ####[facility] [address] [place], [address] T PROT 7.2 g/dL Normal 5.9-8.4 [facility] Comment on above: Order Comment: Order Date: 05/05/25Order Info: 0786-1 - CMPOrder Info: 38125-0 - RA Performed By: #### L 505.7010, L100.0100, L7000.5300, L500.4050, L101.9900, L3100.5475 ####[facility] [address] [place], [address] Urea nitrogen [Mass/Vol] 7 mg/dL Normal 4-19 [facility] Comment on above: Order Comment: Order Date: 05/05/25Order Info: 0786-1 - CMPOrder Info: 46179-8 - RA Performed By: #### L 505.7010, L100.0100, L7000.5300, L500.4050, L101.9900, L3100.5475 ####[facility] [address] [place], [address] Erythrocyte Sed Rateon 05-05 SED RATE 4 mm/hr Normal 0-30 [facility] Comment on above: Order Comment: Order Date: 05/05/25Order Info: 0184-1 - CBCDOrder Info: 96532-3 - SED Performed By: #### L 505.7010, L100.0100, L7000.5300, L500.4050, L101.9900, L3100.5475 ####[facility] [address] [place], [address] Hips B/L min 2 views w/ Pelv rob 05-05-2025 Hips B/L min 2 views w/ Pelvis [facility] [address] [place] [address] Hips B/L min 2 views w/ Pelvis MR#: [id number] Acct: [id number] Name: SUSANA MCCLAIN Rep #: [id number] : 1990 F 35 From: Juan Manuel marrero MD PCP: Dr. Yasmine Beavers MD Status: REG CLI Study: Hips B/L min 2 views w/ Pelvis Date of Exam: 0 05/05/25 Exam# [id number] Ordering Dr: Yasmine Beavers MD PROCEDURE: HIPS B/L MIN 2 VIEWS W/ PELVIS 05/05/2025 REASON FOR EXAM: HIP PAIN TECHNIQUE: HIPS B/L MIN 2 VIEWS W/ PELVIS COMPARISON: None. FINDINGS: There is a non-specific bowel gas pattern. Normal visualized soft tissue structures. Normal visualized sacrum, sacroiliac joints and bilateral iliac wings. Normal visualized bilateral superior and inferior pubic rami. Normal ischial tuberosities. Normal pubic symphysis. Normal visualized right femoral head. Normal right acetabulum. Normal right hip joint. Normal visualized left femoral head. Normal left acetabulum. Normal left hip joint. Metallic clips are noted in the left aspect of the pelvis. RAD/Hips B/L min 2 views w/ Pelvis IMPRESSION: No evidence for acute abnormality. Reading Location: [place] [address] CC: Dr. Yasmine Beavers MD Process Supervisor: Signed Normal [facility] Knee 3 Viewson 05-05-2025 Knee 3 Views [facility] [address] [place] [address] Knee 3 Views MR#: [id number] Acct: [id number] Name: SUSANA MCCLAIN Rep #: [id number] : 1990 F 35 From: Juan Manuel marrero MD PCP: Dr. Yasmine Beavers MD Status: REG CLI Study: Knee 3 Views Date of Exam: 05/05/25 Exam# [id number] Ordering Dr: Yasmine Beavers MD PROCEDURE: KNEE 3 VIEWS 05/05/2025 REASON FOR EXAM: KNEE PAIN TECHNIQUE: KNEE 3 VIEWS COMPARISON: MRI on 11/27/2023. FINDINGS: Mild tricompartmental changes of degenerative joint disease. Prior reconstruction of the anterior cruciate ligament. No fracture or dislocation is seen. RAD/Knee 3 Views IMPRESSION: No evidence for acute abnormality. Reading Location: [place] [address] CC: Dr. Yasmine Beavers MD Process Supervisor: Signed Normal [facility] Knee 3 Views [facility] [address] [place], [place] [address] Knee 3 Views MR#: [id number] Acct: [id number] Name: SUSANA MCCLAINNE Rep #: [id number] : 1990 F 35 From: Juan Manuel marrero MD PCP: Dr. Yasmine Beavers MD Status: REG CLI Study: Knee 3 Views Date of Exam: 05/05/25 Exam# [id number] Ordering Dr: Yasmine Beavers MD PROCEDURE: KNEE 3 VIEWS 05/05/2025 REASON FOR EXAM: KNEE PAIN TECHNIQUE: KNEE 3 VIEWS COMPARISON: None. FINDINGS: Normal medial femorotibial compartment. Normal lateral femorotibial compartment. Normal patellofemoral articulation. Normal visualized distal femur. Normal visualized proximal tibia and fibula. Normal proximal tibiofibular articulation. RAD/Knee 3 Views IMPRESSION: No evidence for acute abnormality. Reading Location: [place] [address] CC: Dr. Yasmine Beavers MD Process Supervisor: Signed Normal [facility] Rheumatoid Factoron 05-05-20 25 RHEUMATOID FAC < 10.0 Normal <15 [facility] Comment on above: Order Comment: Order Date: 05/05/25Order Info: 0786-1 - CMPOrder Info: [id number] - RA Performed By: #### L 505.7010, L100.0100, L7000.5300, L500.4050, L101.9900, L3100.5475 ####[facility] [address] [facility] [place], [address] Shoulder min 2 Viewson 05-05 Shoulder min 2 Views [facility] [address] [place] [address] Shoulder min 2 Views MR#: [id number] Acct: [id number] Name: SUSANA MCCLAIN Rep #: [id number] : 1990 F 35 From: Juan Manuel marrero MD PCP: Dr. Yasmine Beavers MD Status: REG CLI Study: Shoulder min 2 Views Date of Exam: 05/05/25 Exam# [id number] Ordering Dr: Yasmine Beavers MD PROCEDURE: SHOULDER MIN 2 VIEWS 05/05/2025 REASON FOR EXAM: SHOULDER PAIN TECHNIQUE: SHOULDER MIN 2 VIEWS COMPARISON: None. FINDINGS: Normal glenohumeral articulation. Normal acromioclavicular joint. Normal acromion. Normal humeral head and visualized proximal humerus. Normal visualized scapula. There is no demonstrated soft tissue abnormality. Normal visualized pulmonary apex. RAD/Shoulder min 2 Views IMPRESSION: No evidence for acute abnormality. Reading Location: [place] [address] CC: Dr. Yasmine Beavers MD Process Supervisor: Signed Normal [facility] Shoulder min 2 Views [facility] [address] [place] [address] Shoulder min 2 Views MR#: [id number] Acct: [id number] Name: SUSANA MCCLAIN Rep #: [id number] : 1990 F 35 From: Juan Manuel marrero MD PCP: Dr. Yasmine Beavers MD Status: REG CLI Study: Shoulder min 2 Views Date of Exam: 05/05/25 Exam# [id number] Ordering Dr: Yasmine Beavers MD PROCEDURE: SHOULDER MIN 2 VIEWS 05/05/2025 REASON FOR EXAM: SHOULDER PAIN TECHNIQUE: SHOULDER MIN 2 VIEWS COMPARISON: None. FINDINGS: Normal glenohumeral articulation. Normal acromioclavicular joint. Normal acromion. Normal humeral head and visualized proximal humerus. Normal visualized scapula. There is no demonstrated soft tissue abnormality. Normal visualized pulmonary apex. RAD/Shoulder min 2 Views IMPRESSION: No evidence for acute abnormality. Reading Location: [place] [address] CC: Dr. Yasmine Beavers MD Process Supervisor: Signed Normal [facility] Venous Duplex US, Unilateral on 04-24-2025 Venous Duplex US, Unilateral [facility] [address] [place] [address] Venous Duplex US, Unilateral 04/24/25 1404 MR#: [id number] Acct: [id number] Name: SUSANA MCCLAIN Rep #: [id number] : 1990 35 From: Rohit Conteh MD Attending Dr: Dr. Yasmine Beavers MD Status: R EG CLI Ordering Dr: Yasmine Beavers MD Date: 04/24/25 Location: [facility] Sex: F C Admitted: Reason For Study Reason For Study: RLE Pain RIGHT LEFT Portions of GSV appear to have been previously CFV is compressible, spontaneous, phasic, competent, removed. Vessel appears compressible from distal and demonstrates normal augmentation. thigh to SFJ. CFV is compressible, spontaneous, phasic, competent and demonstrates normal augmentation. FV is compressible, spontaneous, phasic, competent and demonstrates normal augmentation. POP V is compressible, spontaneous, phasic, competent and demonstrates normal augmentation. T/P Trunk is compressible. PTV is compressible. RT PerV is compressible. Procedure This is a venous duplex using B-mode, color flow and spectral Doppler. Exam performed in department. The exam was diagnostic. A preliminary report was called and/or faxed to Dr Beavers / Brittani Grider. VL/Venous Duplex US, Unilateral Interpretation Summary Deep veins of the right lower extremity are patent and compressible segmentally. There is no evidence of right lower extremity deep vein thrombosis. The right great saphenous vein appears patent and compressible segmentally. Ordering Physician: Yasmine Beavers Referring Physician: Yasmine Beavers Performed By: Husam Marcelo, T 04/27/25 0757 Date Rohit Conteh MD CC: Dr. Ysamine Beavers MD Date Dictated: 04/24/25 1404 Date Transcribed: 04/27/25756 Process Supervisor: Signed Normal [facility] Stress Reporton 12-25-2024 Stress Report [facility] [place] [address] MR#: [id number] Acct: [id number] Name: SUSANA MCCLAIN Rep #: [id number] : 1990 34 From: Rambo Tompkins MD [...] MD Date Dictated: 12/25/241717 Date Transcribed: 12/25/241717 Process Supervisor: [place] Signed Normal [facility] Lumbar Spine 2 or 3 Viewson 11-28-2024 Lumbar Spine 2 or 3 Views [facility] [address] [place] [address] Lumbar Spine 2 or 3 Views MR#: [id number] Acct: [id number] Name: SUSANA MCCLAIN Rep #: [id number] : 1990 F 34 From: Flavio peraza MD PCP: Dr. Yasmine Beavers MD Status: REG CLI Study: Lumbar Spine 2 or 3 Views Date of Exam: Exam# [id number] Ordering Dr: Yasmine Beavers MD [id number] STUDY: X-RAY - LUMBAR SPINE REASON FOR [...] MD at 22:59 EST , CC: Dr. aYsmine Beavers MD Process Supervisor: Signed Normal [facility] Packaging Tech Office Visit Reporton 11-07-2024 Packaging Tech Office Visit Report [facility] [address], [address] [place] [address] OFFICE VISIT Date of Service: 11/07/24 MR#: [id number] Acct: [id number] Name: SUSANA MCCLAIN Rep #: [id number] : 1990 Provider: Dr. Tracey willis MD Age/Sex: 34/F Location: [facility] 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 Normal [facility] CBC W/Diff, Automatedon 12-0 Absolute Neut Normal 2.0-7.7 [facility] Comment on above: Order Comment: Order Date: 10/21/24Order Info: 0184-1 - CBCD Result Comment: SALUD DAVIDSON DID Performed By: #### L [id number], L100.0100, L501.5200, L506.0400, L501.9520 ####[facility] [id number] [place], [address] HCT Normal 37-47 [facility] Comment on above: Order Comment: Order Date: 10/21/24Order Info: [id number] - CBCD Result Comment: ALRE STUART DID Performed By: #### L 500.4050, L100.0100, L501.5200, L506.0400, L501.9520 ####[facility] [address] [place], [address] HGB Normal 12.0-15.0 [facility] Comment on above: Order Comment: Order Date: 10/21/24Order Info: 0184-1 - CBCD Result Comment: ALRE STUART DID Performed By: #### L 500.4050, L100.0100, L501.5200, L506.0400, L501.9520 ####[facility] [address] [place], [address] MCH Normal 27.0-32.0 [facility] Comment on above: Order Comment: Order Date: 10/21/24Order Info: 0184- - CBCD Result Comment: ALRE STUART DID Performed By: #### L 500.4050, L100.0100, L501.5200, L506.0400, L501.9520 ####[facility] [address] [place], [address] MCHC Normal 32-36 [facility] Comment on above: Order Comment: Order Date: 10/21/24Order Info: 0184-1 - CBCD Result Comment: ALRE STUART DID Performed By: #### L 500.4050, L100.0100, L501.5200, L506.0400, L501.9520 ####[facility] [address] [place], [address] MCV Normal 81-99 [facility] Comment on above: Order Comment: Order Date: 10/21/24Order Info: 018-1 - CBCD Result Comment: ALRE STUART DID Performed By: #### L 500.4050, L100.0100, L501.5200, L506.0400, L501.9520 ####[facility] [address] [place], [address] NEUT% Normal 47-70 [facility] Comment on above: Order Comment: Order Date: 10/21/24Order Info: 0184- - CBCD Result Comment: ALRE STUART DID Performed By: #### L 500.4050, L100.0100, L501.5200, L506.0400, L501.9520 ####[facility] [address] [place], [address] PLT Normal 150-450 [facility] Comment on above: Order Comment: Order Date: 10/21/24Order Info: 018- - CBCD Result Comment: ALRE STUART DID Performed By: #### L 500.4050, L100.0100, L501.5200, L506.0400, L501.9520 ####[facility] [address] [place], [address] RBC Normal 4.2-5.4 [facility] Comment on above: Order Comment: Order Date: 10/21/24Order Info: 018- - CBCD Result Comment: ALRE STUART DID Performed By: #### L 500.4050, L100.0100, L501.5200, L506.0400, L501.9520 ####[facility] [address] [place], [address] RDW CV Normal 11.6-14.6 [facility] Comment on above: Order Comment: Order Date: 10/21/24Order Info: 0184-1 - CBCD Result Comment: ALRE STUART DID Performed By: #### L 500.4050, L100.0100, L501.5200, L506.0400, L501.9520 ####[facility] [address] [place], [address] RDW SD Normal 35.1-43.9 [facility] Comment on above: Order Comment: Order Date: 10/21/24Order Info: 0184-1 - CBCD Result Comment: ALRE STUART DID Performed By: #### L 500.4050, L100.0100, L501.5200, L506.0400, L501.9520 ####[facility] [address] [place], [address] WBC Normal 4.4-11.0 [facility] Comment on above: Order Comment: Order Date: 10/21/24Order Info: 0184-1 - CBCD Result Comment: ALRE STUART DID Performed By: #### L 500.4050, L100.0100, L501.5200, L506.0400, L501.9520 ####[facility] [address] [place], [address] Comprehensive Metabolic Prof ilon 10-21-2024 Albumin [Mass/Vol] 3.8 g/dL Normal 3.2-5.0 [facility] Comment on above: Order Comment: Order Date: 10/21/24Order Info: 0786-1 - CMPOrder Info: 15556-2 - MGOrder Info: 3015-3 - TSHOrder Info: 3023-7 - T4F Performed By: #### L 500.4050, L100.0100, L501.5200, L506.0400, L501.9520 ####[facility] [address] [place], [address] Albumin/Globulin [Mass ratio] 1.0 {ratio} Normal 0.9-2.4 [facility] Comment on above: Order Comment: Order Date: 10/21/24Order Info: 0786-1 - CMPOrder Info: 30890-7 - MGOrder Info: 3015-3 - TSHOrder Info: 3024-7 - T4F Performed By: #### L 500.4050, L100.0100, L501.5200, L506.0400, L501.9520 ####[facility] [address] [place], [address] ALK P 45 U/L Normal 45-117 [facility] Comment on above: Order Comment: Order Date: 10/21/24Order Info: 0786-1 - CMPOrder Info: 53443-1 - MGOrder Info: 3016-3 - TSHOrder Info: 3024-7 - T4F Performed By: #### L 500.4050, L100.0100, L501.5200, L506.0400, L501.9520 ####[facility] [address] [place], [address] ALT [Catalytic activity/Vol] 23 U/L Normal 13-56 [facility] Comment on above: Order Comment: Order Date: 10/21/24Order Info: 0786-1 - CMPOrder Info: 09680-2 - MGOrder Info: 3016-3 - TSHOrder Info: 3024-7 - T4F Performed By: #### L 500.4050, L100.0100, L501.5200, L506.0400, L501.9520 ####[facility] [address] [place], [address] AST [Catalytic activity/Vol] 15 U/L Normal 15-37 [facility] Comment on above: Order Comment: Order Date: 10/21/24Order Info: 0786-1 - CMPOrder Info: 07308-1 - MGOrder Info: 3016-3 - TSHOrder Info: 3024-7 - T4F Performed By: #### L 500.4050, L100.0100, L501.5200, L506.0400, L501.9520 ####[facility] [address] [place], [address] Bilirubin [Mass/Vol] 0.30 mg/dL Normal 0.20-1.00 [facility] Comment on above: Order Comment: Order Date: 10/21/24Order Info: 0786-1 - CMPOrder Info: 56992-2 - MGOrder Info: 3016-3 - TSHOrder Info: 3024-7 - T4F Result Comment: For patients on eltrombopag therapy, use of Dimension [place] TBIL is not recommended. Performed By: #### L 500.4050, L100.0100, L501.5200, L506.0400, L501.9520 ####[facility] [address] [place], [address] BUN/CRE 6.9 RATIO Low 10-20 [facility] Comment on above: Order Comment: Order Date: 10/21/24Order Info: 0786-1 - CMPOrder Info: 17018-1 - MGOrder Info: 3016-3 - TSHOrder Info: 3024-7 - T4F Performed By: #### L 500.4050, L100.0100, L501.5200, L506.0400, L501.9520 ####[facility] [address] [place], [address] CA,Total 8.6 mg/dL Normal 8.5-10.1 [facility] Comment on above: Order Comment: Order Date: 10/21/24Order Info: 0786-1 - CMPOrder Info: 72927-7 - MGOrder Info: 3016-3 - TSHOrder Info: 3024-7 - T4F Performed By: #### L 500.4050, L100.0100, L501.5200, L506.0400, L501.9520 ####[facility] [address] [place], [address] Chloride [Moles/Vol] 106 mmol/L Normal 98-107 [facility] Comment on above: Order Comment: Order Date: 10/21/24Order Info: 0786-1 - CMPOrder Info: 44435-4 - MGOrder Info: 3016-3 - TSHOrder Info: 3024-7 - T4F Performed By: #### L 500.4050, L100.0100, L501.5200, L506.0400, L501.9520 ####[facility] [address] [place], [address] CO2 [Moles/Vol] 23.0 mmol/L Normal 21.0-32.0 [facility] Comment on above: Order Comment: Order Date: 10/21/24Order Info: 86-1 - CMPOrder Info: [id number] - MGOrder Info: 3016-3 - TSHOrder Info: 3024-7 - T4F Performed By: #### L 500.4050, L100.0100, L501.5200, L506.0400, L501.9520 ####[facility] [address] [place], [address] Creatinine [Mass/Vol] 0.88 mg/dL Normal 0.55-1.02 [facility] Comment on above: Order Comment: Order Date: 10/21/24Order Info: 785- - CMPOrder Info: 61749-2 - MGOrder Info: 3 - TSHOrder Info: 3024-7 - T4F Result Comment: The validity of the calculated GFR GFRAA in patients over 70 years has not been determined. Clinical correlation is essential. Performed By: #### L 500.4050, L100.0100, L501.5200, L506.0400, L501.9520 ####[facility] [address] [place], [address] EST GFR - AA 96 mL/min Normal >60 [facility] Comment on above: Order Comment: Order Date: 10/21/24Order Info: 785-1 - CMPOrder Info: 16438-9 - MGOrder Info: 30163 - TSHOrder Info: 3024-7 - T4F Result Comment: Afri can Guamanian GFR Calc Performed By: #### L 500.4050, L100.0100, L501.5200, L506.0400, L501.9520 ####[facility] [address] [place] [id number] GAP 8 Normal 5-15 [facility] Comment on above: Order Comment: Order Date: 10/21/24Order Info: 0786-1 - CMPOrder Info: 60696-7 - MGOrder Info: 3016-3 - TSHOrder Info: 3024-7 - T4F Performed By: #### L 500.4050, L100.0100, L501.5200, L506.0400, L501.9520 ####[facility] [address] [place], [address] GFR/1.73 sq M.predicted among non-blacks MDRD (S/P/Bld) [Vol rate/Area] 79 mL/min/{1.73_m2} Normal >60 [facility] Comment on above: Order Comment: Order Date: 10/21/24Order Info: 07-1 - CMPOrder Info: 43370-1 - MGOrder Info: 3016-3 - TSHOrder Info: 3024-7 - T4F Result Comment: Non- GFR Calc Performed By: #### L 500.4050, L100.0100, L501.5200, L506.0400, L501.9520 ####[facility] [address] [place], [address] Globulin (S) [Mass/Vol] 3.8 g/dL Normal 2.2-4.2 [facility] Comment on above: Order Comment: Order Date: 10/21/24Order Info: 0786-1 - CMPOrder Info: 40591-7 - MGOrder Info: 3016-3 - TSHOrder Info: 3024-7 - T4F Performed By: #### L 500.4050, L100.0100, L501.5200, L506.0400, L501.9520 ####[facility] [address] [place], [address] Glucose [Mass/Vol] 111 mg/dL High 74-106 [facility] Comment on above: Order Comment: Order Date: 10/21/24Order Info: 0786-1 - CMPOrder Info: 64364-8 - MGOrder Info: 3015-3 - TSHOrder Info: 3024-7 - T4F Result Comment: Fast ing Glucose result from 100 to 125 mg/dL suggests IMPAIRED HOMEOSTASIS per A.D.A. criteria. Performed By: #### L 500.4050, L100.0100, L501.5200, L506.0400, L501.9520 ####[facility] [address] [place], [address] Potassium [Moles/Vol] 3.6 mmol/L Normal 3.5-5.1 [facility] Comment on above: Order Comment: Order Date: 10/21/24Order Info: 785-1 - CMPOrder Info: 31877-4 - MGOrder Info: 3015-3 - TSHOrder Info: 3024-7 - T4F Performed By: #### L 500.4050, L100.0100, L501.5200, L506.0400, L501.9520 ####[facility] [address] [place], [address] Sodium [Moles/Vol] 137 mmol/L Normal 136-145 [facility] [place] Comment on above: Order Comment: Order Date: 10/21/24Order Info: 07-1 - CMPOrder Info: 55839-5 - MGOrder Info: 6-3 - TSHOrder Info: 3024-7 - T4F Performed By: #### L 500.4050, L100.0100, L501.5200, L506.0400, L501.9520 ####[facility] [address] [place], [address] T PROT 7.6 g/dL Normal 6.4-8.2 [facility] Comment on above: Order Comment: Order Date: 10/21/24Order Info: 0786-1 - CMPOrder Info: 29059-1 - MGOrder Info: 3016-3 - TSHOrder Info: 3024-7 - T4F Performed By: #### L 500.4050, L100.0100, L501.5200, L506.0400, L501.9520 ####[facility] [address] [place], [address] Urea nitrogen [Mass/Vol] 6 mg/dL Low 7-18 [facility] Comment on above: Order Comment: Order Date: 10/21/24Order Info: 0786-1 - CMPOrder Info: 73872-7 - MGOrder Info: 3016-3 - TSHOrder Info: 3024-7 - T4F Performed By: #### L 500.4050, L100.0100, L501.5200, L506.0400, L501.9520 ####[facility] [address] [place], [address] Magnesiumon 10-21-2024 Magnesium [Mass/Vol] 2.3 mg/dL Normal 1.6-2.6 [facility] Comment on above: Order Comment: Order Date: 10/21/24Order Info: 0786-1 - CMPOrder Info: [id number] - MGOrder Info: 63 - TSHOrder Info: 3024-7 - T4F Performed By: #### L 500.4050, L100.0100, L501.5200, L506.0400, L501.9520 ####[facility] [address] [place], [address] T4 Free Directon 10-21-2024 T4 FREE DIRECT 0.98 ng/dL Normal 0.76-1.46 [facility] Comment on above: Order Comment: Order Date: 10/21/24Order Info: 0786-1 - CMPOrder Info: 24687-8 - MGOrder Info: 3016-3 - TSHOrder Info: 3024-7 - T4F Performed By: #### L 500.4050, L100.0100, L501.5200, L506.0400, L501.9520 ####[facility] [address] [place], [address] Thyroid Stim Hormone (TSH)on 10-21-2024 TSH 1.610 uIU/mL Normal 0.358-3.740 [facility] Comment on above: Order Comment: Order Date: 10/21/24Order Info: 0786-1 - CMPOrder Info: 80024-8 - MGOrder Info: 3016-3 - TSHOrder Info: 3024-7 - T4F Performed By: #### L 500.4050, L100.0100, L501.5200, L506.0400, L501.9520 ####[facility] [address] [place], [address] Packaging Tech Office Visit Reporton 10-01-2024 Packaging Tech Office Visit Report [facility] [address], [address] [place] [address] OFFICE VISIT Date of Service: 10/01/24 MR#: [id number] Acct: [id number] Name: SUSANA MCCLAIN Rep #: [id number] : 1990 Provider: KODAK paez Age/Sex: 34/F [place] [facility] [place]: Signed Intake Vital Signs 09/16/24 13:49 10/01/24 15:21 Height 5 ft 9 in 5 ft 9 in Weight: 182 lb 187 lb BMI 26.9 27.6 BP 132/76 H 124/72 H Intake Visit Reasons: IUD Chief Complaint: IUD insertion Literacy Education Professor Required: No Is patient in pain?: No [...] Bth Weight Gen Labor Lgth Anesthesia Del [facility] Provider FOB Unknown Grace Unknown Alycia Unknown [...] plan IUD, (more content not included)... Normal [facility] Packaging Tech Office Visit Reporton 09-16-2024 Packaging Tech Office Visit Report [facility] [address], [address] [place] [address] OFFICE VISIT Date of Service: 09/16/24 MR#: [id number] Acct: [id number] Name: SUSANA MCCLAIN Rep #: [id number] : 1990 Provider: Dr. Tracey willis MD Age/Sex: 34/F [place] [facility] [place] Status: Signed Intake Vital Signs 05/23/24 17:54 09/16/24 13:49 Height 5 ft 9 in 5 ft 9 in Weight: 182 lb BMI 26.9 BP 132/76 H Intake Visit Reasons: UTERINE FIBROID ([place]) Literacy Education Professor Required: No Allergies azithromycin (From Zithromax) Allergy [...] acute distress and well developed Orientation: alert HENMT Head: normal to inspection and normocephalic Ears: [...] no rashes (more content not included)... Normal [facility] Transvaginal Non-on 08-22-2024 Transvaginal Non- [facility] [address] [place], [place] [id number] Transvaginal Non- MR#: [id number] Acct: [id number] Name: SUSANA MCCLAIN Rep #: [id number] : 1990 F 34 From: Jonathan Power DO PCP: Dr. Yasmine Beavers MD Status: REG CLI Study: Transvaginal Non- Date of Exam: Exam# [id number] Ordering Dr: Zoe Duran STNA STNA-C [id number] INDICATION: Excessive and frequent menstruation with regular [...] Non- IMPRESSION: Fibroids. Nabothian cysts. Electronically Signed: Jonathan Power DO at 18:39 EDT Reading Location ID and State: [address] [place] [address] Tel [phone], Service support , CC: KODAK Duran; Dr. Yasmine Beavers MD Process Supervisor: Signed Normal [facility] Venous Duplex US, Unilateral on 06-11-2024 Venous Duplex US, Unilateral [facility] [address] [place] [address] Venous Duplex US, Unilateral 06/11/24 1516 MR#: [id number] Acct: [id number] Name: SUSANA MCCLAIN Rep #: [id number] : 1990 34 From: Rohit Conteh MD [...] Cisneros Performed By: ADM 06/11/24 1613 Date oRhit Conteh MD CC: Dr. Yasmine Beavers MD; BHAVIN Cantor Date Dictated: 06/11/24 1516 Date Transcribed: 06/11/24 1613 Process Supervisor: Signed Normal [facility] Chest PA and Lateralon 05-23 Chest PA and Lateral [facility] Services [address] [place] [id number] Chest PA and Lateral MR#: [id number] Acct: [id number] Name: SUSANA MCCLAIN Rep #: [id number] : 1990 F 34 From: Alvin Bone MD PCP: Dr. Yasmine Beavers MD Status: PRE ER Study: Chest PA and Lateral Date of Exam: 05/23/24 Exam# [id number] Ordering Dr: Joanna Castellano [id number] STUDY: X-RAY CHEST REASON FOR EXAM: Female, [...] 18:35 EDT Reading Location ID and State: [address] [place] [address] Tel , Service support , CC: Dr. Yasmine Beavers MD; BHAVIN Reddy Process Supervisor: Signed Normal [facility] Emergency Department Summary on 05-23-2024 Emergency Department Summary [facility] Medical Records Department [address] [place] [address] Emergency Department Summary 05/23/24 MR#: [id number] Acct: [id number] Name: SUSANA MCCLAIN Rep #: [id number] : 1990 34 From: Joanna DELCID PCP: [...] chest pain. No fever or chills[facility] Medical History ADHD Alcohol abuse Alcohol use [...] Air MDM (more content not included)... Normal [facility] CBC + DIFFon 04-23-2024 Baso # 0.02 x10EE3/UL Normal 0.00 - 0.10 [facility] Comment on above: Performed By: #### 2 40922 #### [facility],[address] [place] [address] Basophils/100 WBC (Bld) 0.2 % Normal 0.0 - 2.0 [facility] Comment on above: Performed By: #### 2 39703 #### [facility],[address] [place] [address] CBC + DIFF Normal [facility] Comment on above: Result Comment: CBC- COMPLETE BLOOD COUNT Performed By: #### 2 30117 #### [facility],[address] [place] [address] EO # 0.21 x10EE3/UL Normal 0.00 - 0.50 [facility] Comment on above: Performed By: #### 2 59141 #### [facility],[address] [place] [address] Eosinophils/100 WBC (Bld) 2.0 % Normal 0.0 - 7.0 [facility] Comment on above: Performed By: #### 2 53516 #### [facility],[address] [place] [address] Erythrocyte distribution width (RBC) [Ratio] 13.8 % Normal 12.0 - 15.6 [facility] Comment on above: Performed By: #### 2 04368 #### [facility],[address] [place] [address] Hematocrit (Bld) [Volume fraction] 39.7 % Normal 34.0 - 46.0 [facility] Comment on above: Performed By: #### 2 12083 #### [facility],[address] [place] [address] Hemoglobin (Bld) [Mass/Vol] 13.4 g/dL Normal 12.0 - 16.0 [facility] Comment on above: Performed By: #### 2 57126 #### [facility],[address] [place] [address] Lymph # 1.83 x10EE3/UL Normal 0.80 - 2.80 [facility] Comment on above: Performed By: #### 2 02505 #### [facility],[address] [place] [address] Lymphocytes/100 WBC (Bld) 16.9 % Low 20.0 - 45.0 [facility] Comment on above: Performed By: #### 2 69408 #### [facility],[address] [place] [address] MANUAL DIFF N/A Normal [facility] Comment on above: Performed By: #### 2 85487 #### [facility],[address] [place] [address] MCH (RBC) [Entitic mass] 29 pg Normal 27 - 33 [facility] Comment on above: Performed By: #### 2 03125 #### [facility],[address] [place] [address] MCHC 34 X10 3 Normal 32 - 36 [facility] Comment on above: Performed By: #### 2 36317 #### [facility],[address] [place], [place] [address] MCV (RBC) [Entitic vol] 87 fL Normal 80 - 99 [facility] Comment on above: Performed By: #### 2 18564 #### [facility],[address] [place] [address] [place] # 0.69 x10EE3/UL Normal 0.20 - 1.00 [facility] Comment on above: Performed By: #### 2 09279 #### [facility],[address] [place], [place] [address] MONOS % 6.4 % Normal 0.0 - 10.0 [facility] Comment on above: Performed By: #### 2 50448 #### [facility],[address] [place] [address] Morphology Juarez (Bld) [Interp] N/A Normal [facility] Comment on above: Performed By: #### 2 13353 #### [facility],[address] [place] [address] Neut # 8.04 x10EE3/UL High 1.50 - 7.10 [facility] Comment on above: Performed By: #### 2 09373 #### [facility],[address] [place] [address] Neutrophils/100 WBC (Bld) 74.6 % Normal 46.0 - 76.0 [facility] Comment on above: Performed By: #### 2 32331 #### [facility],[address] [place] [address] PLATELET 260 x10EE3/UL Normal 150 - 450 [facility] Comment on above: Performed By: #### 2 30586 #### [facility],[address] [place] [address] Platelet mean volume (Bld) [Entitic vol] 7.8 fL Normal 6.6 - 10.5 [facility] Comment on above: Result Comment: AUTO MATED DIFFERENTIAL Performed By: #### 2 22009 #### [facility],[address] [place] [address] RBC 4.59 x 10EE6/UL Normal 4.10 - 5.30 [facility] Comment on above: Performed By: #### 2 60376 #### [facility],[address] [place] [address] WBC 10.8 x 10EE3/UL Normal 4.5 - 10.8 [facility] Comment on above: Performed By: #### 2 86297 #### [facility],[address] [place] [address] CHEST 1 VIEWon 04-23-2024 CHEST 1 VIEW [place] [address] Patient: SUSANA MCCLAIN Phone#: : 1990 Age: 34 Gender: F Pt. Type: ER Account: [id number] Location: [facility] Ordering: DR. DIANE MANRIQUEZ Exam Date: 04/23/2024/11:04 Family Phys: Charge Code: [id number] Physician: Lyon Order #: [id number] Dose#: PROCEDURE: X-RAY CHEST 1 VIEW COMPARISON: [...] Miles MD on 04/23/2024 at 11:22 Normal [facility] CMP with eGFRon 04-23-2024 AGE 34 years Normal [facility] Comment on above: Performed By: #### 2 75596 #### [facility],[address] [place] [address] Albumin [Mass/Vol] 3.7 g/dL Normal 3.4 - 5.0 [facility] Comment on above: Performed By: #### 2 43093 #### [facility],[address] [place] [address] Albumin/Globulin [Mass ratio] 1.1 {ratio} Normal 0.9 - 1.6 [facility] Comment on above: Performed By: #### 2 64711 #### [facility],[address] [place] [address] ALK PHOS 47 U/L Normal 46 - 116 [facility] Comment on above: Performed By: #### 2 31365 #### [facility],[address] [place] [address] ALT [Catalytic activity/Vol] 17 U/L Normal 16 - 63 [facility] Comment on above: Performed By: #### 2 76246 #### [facility],[address] [place] [address] Anion gap [Moles/Vol] 11 mmol/L Normal 10 - 20 [facility] Comment on above: Performed By: #### 2 94347 #### [facility],[address] [place] [address]82 AST [Catalytic activity/Vol] 15 U/L Normal 13 - 39 [facility] Comment on above: Performed By: #### 2 77480 #### [facility],[address] [place] [address]478 B/C RATIO 7 ratio Normal 0 - 30 [facility] Comment on above: Performed By: #### 2 24290 #### [facility],[address] [place] [address] Bilirubin [Mass/Vol] 0.4 mg/dL Normal 0.2 - 1.0 [facility] Comment on above: Performed By: #### 2 47296 #### [facility],[address] [place] [address] Calcium [Mass/Vol] 8.9 mg/dL Normal 8.5 - 10.1 [facility] Comment on above: Performed By: #### 2 84800 #### [facility] [facility],[address] [place] [address] 55662 Chloride [Moles/Vol] 103 mmol/L Normal 98 - 107 [facility] Comment on above: Performed By: #### 2 37155 #### [facility],[address] [place] [address] 72979 CMP with eGFR Normal [facility] Comment on above: Result Comment: COMP REHENSIVE METABOLIC PANEL Performed By: #### 2 09052 #### [facility],[address] [place] [address] 85951 CO2 [Moles/Vol] 25.7 mmol/L Normal 21.0 - 32.0 [facility] Comment on above: Performed By: #### 2 73243 #### [facility],[address] [place] [address] 81490 Creatinine [Mass/Vol] 0.89 mg/dL Normal 0.55 - 1.02 [facility] Comment on above: Performed By: #### 2 32265 #### [facility],[address] [place] [address] 71027 GFR/1.73 sq M.predicted among non-blacks MDRD (S/P/Bld) [Vol rate/Area] mL/min/{1.73_m2} Normal 60 - 999 [facility] Comment on above: Performed By: #### 2 52534 #### [facility],[address] [place] [address] 85293 Result Comment: ACCO RDING TO THE NATIONAL KIDNEY DISEASE EDUCATION PROGRAM(NKDE), A NORMAL eGFR IS A VALUE GREATER THAN OR EQUAL TO 60 ML/MIN/1.73 SQ METERS. CHRONIC KIDNEY DISEASE: <60mL/MIN/1.73 SQ METERS KIDNEY FAILURE: <15mL/MIN/1.73 SQ METERS THIS TEST SHOULD ONLY BE USED FOR PATIENTS 18 YEARS OF AGE AND OLDER. Globulin (S) [Mass/Vol] 3.4 g/dL Normal 1.5 - 3.8 [facility] Comment on above: Performed By: #### 2 58764 #### [facility],[address] [place] [address] 22328 Glucose [Mass/Vol] 100 mg/dL Normal 74 - 106 [facility] Comment on above: Performed By: #### 2 66649 #### [facility],[address] [place] [address] 30313 Potassium [Moles/Vol] 3.8 mmol/L Normal 3.5 - 5.1 [facility] Comment on above: Performed By: #### 2 56175 #### [facility],[address] [place] [address] 83830 Protein [Mass/Vol] 7.1 g/dL Normal 6.4 - 8.2 [facility] Comment on above: Performed By: #### 2 25265 #### [facility],[address] [place] [address] 28740 Sodium [Moles/Vol] 136 mmol/L Normal 136 - 145 [facility] Comment on above: Performed By: #### 2 40106 #### [facility],[address] [place] [address] 69485 Urea nitrogen [Mass/Vol] 6 mg/dL Low 7 - 18 [facility] Comment on above: Performed By: #### 2 35520 #### [facility],[address] [place] [address] 92976 D-DIMER, QUANTITATIVEon 06- D-DIMER QUANT <200 Normal 0 - 230 [facility] Comment on above: Performed By: #### 2 99675 #### [facility],[address] [place] [address] 19650 D-DIMER, QUANTITATIVE Normal [facility] Comment on above: Result Comment: ZULEMA T D-DIMER Performed By: #### 2 67673 #### [facility],[address] [place] [address] 14671 TROPONIN I, HIGH SENSITIVITY on 04-23-2024 HS TROPONIN <4.0 Normal 0.0 - 51.4 [facility] Comment on above: Performed By: #### 2 69243 #### [facility],[address] [place] [address] 04633 HS TROPONIN <4.0 Normal 0.0 - 51.4 [facility] Comment on above: Performed By: #### 2 53714 #### [facility],[address] [place] [address] 67830 CNOVon 01-20-2024 CNOV Office Visit (UCWSTR) SUSANA MCCLAIN ([id number]) 1990 F Date Time Provider Department 01/20/24 11:45 AM GLORIA BARRERA [facility] During your visit today, we recorded the following information about you: Temperature Pulse Respiration Blood pressure 98.6 degrees 100/minute 21/minute 122/80 Weight 88.4 kg Gloria Barrera PA-C 01/20/2024 12:09 PM Signed This note was created using [employer]. Subjective Susana Mcclain is a 33 year old female. HPI Presents with a chief complaint of a possible infection in her right alvarez area. She had ACL reconstruction by Kalpesh Linton on December 31. She states the past [...] CULTURE WITH GRAM STAIN [SQWCUL] Order #: [id number] FUTURE cephALEXin (KEFLEX) 500 mg capsuleTake 1 capsule by mouth four times daily for 7 days.Disp: 28 capsuleRfl: 0 ABSCESS AND WOUND CULTURE WITH GRAM STAIN [SQWCUL] Order #: (more content not included)... Normal [facility] Radio Talk Show Host Cytology Reporton 2022 Radio Talk Show Host Cytology Report . Pathology Reports Accession: Collected Date/Time: Received Date/Time: Pathologist: [id number] 09/14/2023 14:14 EDT 09/14/2023 18:00 EDT Radio Talk Show Host Cytology Report SPECIMEN: Specimen Description: Liquid Prep [...] and evaluated with the assistance of the [employer] ThinPrep Test Imaging System. Pathology Reports Accession: Collected Date/Time: Received Date/Time: Pathologist: [id number] 09/14/2023 14:14 EDT 09/14/2023 18:00 EDT Electronically Signed by Pathology report verified by [facility] Screened by: DW Electronically signed by Aida Morales Sign-Out Date: 09/21/2023 13:28 Performing Lab: [facility], [address] [place] [address] Pathology Dept Disclaimer The Pap test is a screening test for cervical cancer. As evidenced by published data, it is subject to both inherent false negative and false positive results. Your patient's results should be interpreted in context with pertinent clinical history including gynecological examination. Normal [facility] ([place]) HPVon 09-20-2023 HPV Interp Normal See Interp HPVN [facility] ([place]) Comment on above: Order Comment: Order placed by AP_HPV_ORDER rule from [id number] Result Comment: High Risk HPV Typing: NEGATIVE [...] HPVN Performed By: #### H PV #### [place] [address] HPV Source Cervix Normal [facility] ([place]) Comment on above: Order Comment: Order placed by AP_HPV_ORDER rule from [id number] Performed By: #### H PV #### [place] [address] CTPCRon 09-17-2023 C. trachomatis Interp Normal See CT Interp N [facility] ([place]) Comment on above: Result Comment: C. t rachomatis DNA not detected. Specimen is presumptive negative for C. trachomatis. A negative result does not preclude C. trachomatis infection because results depend on adequate specimen collection, absence of inhibitors, and sufficient DNA to be detected. See CT Interp N Performed By: #### C TPCR, NGPCR1 #### [address] [address] C.trachomatis PCR Negative Normal Negative [facility] ([place]) Comment on above: Result Comment: Mole cular (PCR) assay performed on the Bab[employer] Wilbur 4800 system. Performed By: #### C TPCR, NGPCR1 #### [address] [address] Chlam Source Urine Normal [facility] ([place]) Comment on above: Performed By: #### C TPCR, NGPCR1 #### [address] [address] [id number] 09-17-2023 GC PCR Source Urine Normal [facility] ([place]) Comment on above: Performed By: #### C TPCR, NGPCR1 #### [address] [address] N. gonorrhoeae (PCR) Negative Normal Negative [facility] ([place]) Comment on above: Result Comment: Mole cular (PCR) assay performed on the [employer] Wilbur 4800 System. Performed By: #### C TPCR, NGPCR1 #### [address] [address] N. gonorrhoeae Interp Normal See NG Interp N [facility] ([place]) Comment on above: Result Comment: N. g onorrhoeae DNA not detected. Specimen is presumptive negative for N. gonorrhoeae. A negative result does not preclude Neisseria gonorrhoeae infection because results depend on adequate specimen collection, absence of inhibitors, and sufficient DNA to be detected. See NG Interp N Performed By: #### C TPCR, NGPCR1 #### [address] [address] CNPMarlene 05-30-2023 CNPN Telephone (FAMPWS) SUSANA MCCLAIN ([id number]) 1990 F Date Time Provider Department 05/30/23 ROBER SABA During your visit today, we recorded the [...] qualifies. Attempted to schedule virtual visit with [facility] and was denied. 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 04-26-2023 CNPN Telephone (PSWSTR) SUSANA MCCLAIN ([id number]) 1990 F Date Time Provider Department 04/26/23 DENEEN ROLON PSWSTR During your visit today, we recorded [...] Reviewed: 01/26/2023 Reviewed by: Marco Antonio Costa APRN.MECHANICAL MAINTENANCE WORKER - Fully Assessed Reason for Visit: Patient Question [2917] Order(s):QUEtiapine (SEROQUEL) 200 mg tabletTake 1 tablet [...] veins [I83.90] 03/21/2013 ASCUS on Pap smear [STF4190] 04/11/2013 Pain in joint, lower leg [M25.569] [...] Encounter Status:Closed by CEDRICK CLARK on 04/27/23 [facility] 02-12-[address] [facility] Telephone (PSYCBE) SUSANA MCCLAIN ([id number]) 1990 F Date Time Provider Department 02/12/23 DENEEN ROLON PSLORIBE During your visit today, we recorded the following information about you: Mary Glover LPN 02/12/2023 8:51 AM Signed Please schedule patient for a FU visit with Deneen on a Sunday afternoon. Patient will see visit on my chart. needs financial clearance. Dilia Zamarripa Pss 02/12/2023 12:46 PM Signed Placed referral for [employer]. OON for Kalpesh. Once cleared patient will be called. Mary Glover LPN 02/14/2023 8:12 AM Signed Spoke to patient and given date/time of 03/09/2023 at 2:00 pm virtually. 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]09/03/2018 Chronic insomnia [F51.04] 09/10/2019 Acne vulgaris [L70.0] 09/10/2019 Bipolar disorder, in partial remission, most re*09/24/2020 Encounter Status:Closed by MARY GLOVER LPN [facility] SUSANA MCCLAIN ([id number]) 1990 F Date Time Provider Department 02/09/23 [...] Reviewed: 01/26/2023 Reviewed by: Marco Antonio Costa APRN.MECHANICAL MAINTENANCE WORKER - Fully Assessed Reason for Visit: Results [...] veins [I83.90] 03/21/2013 ASCUS on Pap smear [OHF9183] 04/11/2013 Pain in joint, lower leg [M25.569] 08/31/2014 Unspecified disorder of lower leg joint [M25.9] 08/31/2014 10/14/2018 Varicose veins of leg with pain, 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]09/03/2018 Chronic insomnia [F51.04] 09/10/2019 Acne vulgaris [L70.0] 09/10/2019 Bipolar disorder, in partial remission, most re*09/24/2020 Encounter Status:Closed by SYLVIA BEST on 3/24/23 Normal [place] [address]([place])D3 SerPl-mCncon 2022 25-hydroxyvitamin D3 [Mass/Vol] 21.4 ng/mL Low 31.0-80.0 [facility] Comment on above: Order Comment: Speci men Type: BLOOD SPECIMEN Ordering Facility: [facility] Address: [address] [place] [address] Result Comment: Clas sification of 25 [place] Vitamin D status: Deficiency/Insufficiency: < or = 30 ng/ml. Sufficiency/Optimal Levels: 31-80 ng/mL Toxicity: > 100 ng/mL. Test performed by chemiluminescent immunoassay. Performed By: #### 2 276-4, 3015-3, , 1988-03 #### [facility] CLIA [id number] [address] [place] [address] [place] CBC panel Auto (Bld)on 02-08 Erythrocyte distribution width (RBC) [Ratio] 14.1 % Normal 11.5-15.0 [facility] Comment on above: Order Comment: Speci men Type: BLOOD SPECIMEN Ordering Facility: [facility] Address: [address] [place] [address] Performed By: #### 2 276-4, 3, , 1988-03 #### [facility] CLIA [id number] [address] [place] [address] [place] Hematocrit (Bld) [Volume fraction] 43.0 % Normal 36.0-46.0 [facility] Comment on above: Order Comment: Speci men Type: BLOOD SPECIMEN Ordering Facility: [facility] Address: [address] [place], [place] [address] Performed By: #### 2 276-4, 3015-3, , 1988-03 #### [facility] CLIA [id number] [address] [place] [address] [place] Hemoglobin (Bld) [Mass/Vol] 14.4 g/dL Normal 11.5-15.5 [facility] Comment on above: Order Comment: Speci men Type: BLOOD SPECIMEN Ordering Facility: [facility] Address: [address] Performed By: #### 2 276-4, 3, , 1988-03 #### [facility] CLIA [id number] [address] [place] [address] [place] MCH (RBC) [Entitic mass] 29.2 pg Normal 26.0-34.0 [facility] Comment on above: Order Comment: Speci men Type: BLOOD SPECIMEN Ordering Facility: [facility] Address: [address] Performed By: #### 2 276-4, 3, , 1988-03 #### [facility] CLIA [id number] [address] [place] [address] [place] MCHC (RBC) [Mass/Vol] 33.5 g/dL Normal 30.5-36.0 [facility] Comment on above: Order Comment: Speci men Type: BLOOD SPECIMEN Ordering Facility: [facility] Address: [address] Performed By: #### 2 276-4, 3016-01, , 1988-03 #### [facility] CLIA [id number] [address] [place] [address] [place] MCV (RBC) [Entitic vol] 87.2 fL Normal 80.0-100.0 [facility] Comment on above: Order Comment: Speci men Type: BLOOD SPECIMEN Ordering Facility: [facility] Address: [address] [place] [address] Performed By: #### 2 276-4, 3016-01, , 1988-03 #### [facility] CLIA [id number] [address] [place] [address] [place] Nucleated RBC (Bld) [#/Vol] 10*3/uL Normal <0.01 [facility] Comment on above: Order Comment: Speci men Type: BLOOD SPECIMEN Ordering Facility: [facility] Address: [address] [place] [phone] Performed By: #### 2 276-4, 3015-3, , 1988-03 #### [facility] CLIA [id number] [address] [place] [address] [place] Platelet mean volume (Bld) [Entitic vol] 10.2 fL Normal 9.0-12.7 [facility] Comment on above: Order Comment: Speci men Type: BLOOD SPECIMEN Ordering Facility: [facility] Address: [address] [place], [place] [address] Performed By: #### 2 276-4, 3015-3, , 1988-03 #### [facility] CLIA [id number] [address] [place] [address] [place] Platelets (Bld) [#/Vol] 258 10*3/uL Normal 150-400 [facility] Comment on above: Order Comment: Speci men Type: BLOOD SPECIMEN Ordering Facility: [facility] Address: [address] [place], [place] [address] Performed By: #### 2 276-4, 3015-3, , 1988-03 #### [facility] CLIA [id number] [address] [place] [address] [place] RBC (Bld) [#/Vol] 4.93 10*6/uL Normal 3.90-5.20 [facility] Comment on above: Order Comment: Speci men Type: BLOOD SPECIMEN Ordering Facility: [facility] Address: [address] [place] [phone] Performed By: #### 2 276-4, 3015-3, , 1988-03 #### [facility] CLIA [id number] [address] [place], [place] [address] [place] WBC (Bld) [#/Vol] 11.37 10*3/uL High 3.70-11.00 [facility] Comment on above: Order Comment: Speci men Type: BLOOD SPECIMEN Ordering Facility: [facility] Address: [address] [place] [address] Performed By: #### 2 276-4, 3016-3, 08418-8, 1988-03 #### [facility] CLIA [id number] [address] [place] [address] [place] CRP SerPl-mCncon 02-08-2023 CRP [Mass/Vol] mg/L Normal <0.9 [facility] Comment on above: Order Comment: Speci men Type: BLOOD SPECIMEN Ordering Facility: [facility] Address: [address] [place] [address] Performed By: #### 2 276-4, 3015-3, , 1988-03 #### [facility] CLIA [id number] [address] [place] [address] Centromere Ab IF Ql (S)on Centromere Ab Qn (S) <0.2 Normal <1.0 [facility] Comment on above: Order Comment: Speci men Type: BLOOD SPECIMEN Ordering Facility: [facility] Address: [address] [place] [address] Result Comment: Anti -centromere antibody is used as in aid in diagnosis of systemic sclerosis. Clinical correlation is required. Test Methodology: Multiplex flow immunoassay. Performed By: #### 2 276-4, 3016-3, 87810-4, 1988-03 #### [facility] CLIA [id number] [address] [place] [address] [place] CENTROMERE AB QUAL Negative Normal Negative [facility] Comment on above: Order Comment: Speci men Type: BLOOD SPECIMEN Ordering Facility: [facility] Address: [address] [place] [address] Performed By: #### 2 276-4, 3016-3, 53779-7, 1988-03 #### [facility] CLIA [id number] [address] [place] [address] [place] Chromatin Ab Qnon 02-08-2023 CHROMATIN AB QUAL Negative Normal Negative [facility] Comment on above: Order Comment: Speci men Type: BLOOD SPECIMEN Ordering Facility: [facility] Address: [address] [place] [address] Performed By: #### 2 276-4, 301-3, 72308-7, 1988-03 #### [facility] CLIA [id number] [address] [place] [address] [place] Chromatin Ab SerPl-aCncon Chromatin Ab Qn <0.2 Normal <1.0 [facility] Comment on above: Order Comment: Speci men Type: BLOOD SPECIMEN Ordering Facility: [facility] Address: [address] [place] [address] Result Comment: Test Methodology: Multiplex flow immunoassay. Performed By: #### 2 276-4, 301-3, 42793-6, 1988-03 #### [facility] CLIA [id number] [address] [place] [address] [place] Comprehensive metabolic 2000 panelon 02-08-2023 Albumin [Mass/Vol] 4.4 g/dL Normal 3.9-4.9 [facility] Comment on above: Order Comment: Speci men Type: BLOOD SPECIMEN Ordering Facility: [facility] Address: [address] [place] [address] Performed By: #### 2 4323-8, 82805-4, 3024-7, 3053-6 #### [facility] CLIA [id number] [address] [place] [address] [place] ALP [Catalytic activity/Vol] 46 U/L Normal 34-123 [facility] Comment on above: Order Comment: Speci men Type: BLOOD SPECIMEN Ordering Facility: [facility] Address: [address] [place], [place] [address] Performed By: #### 2 4323-8, 97083-9, 3024-7, 3053-6 #### [facility] CLIA [id number] [address] [place] [address] [place] ALT [Catalytic activity/Vol] 23 U/L Normal 7-38 [facility] Comment on above: Order Comment: Speci men Type: BLOOD SPECIMEN Ordering Facility: [facility] Address: [address] [place] [address] Performed By: #### 2 4323-8, 09327-2, 3024-7, 3053-6 #### [facility] CLIA [id number] [address] [place] [address] [place] Anion gap [Moles/Vol] 12 mmol/L Normal 9-18 [facility] Comment on above: Order Comment: Speci men Type: BLOOD SPECIMEN Ordering Facility: [facility] Address: [address] [place] [address] Performed By: #### 2 4323-8, 23821-6, 3024-7, 3053-6 #### [facility] CLIA [id number] [address] [place] [address] [place] AST [Catalytic activity/Vol] 26 U/L Normal 13-35 [facility] Comment on above: Order Comment: Speci men Type: BLOOD SPECIMEN Ordering Facility: [facility] Address: [address] [place] [address] Performed By: #### 2 4323-8, 83461-3, 3024-7, 3053-6 #### [facility] CLIA [id number] [address] [place] [address] [place] Bilirubin [Mass/Vol] 0.4 mg/dL Normal 0.2-1.3 [facility] Comment on above: Order Comment: Speci men Type: BLOOD SPECIMEN Ordering Facility: [facility] Address: [address] [place], [place] [address] Performed By: #### 2 4323-8, 73534-5, 3024-7, 3053-6 #### [facility] CLIA [id number] [address] [place] [address] [place] Calcium [Mass/Vol] 10.2 mg/dL Normal 8.5-10.2 [facility] Comment on above: Order Comment: Speci men Type: BLOOD SPECIMEN Ordering Facility: [facility] Address: [address] [place], [place] [address] Performed By: #### 2 4323-8, 06943-9, 3024-7, 3053-6 #### [facility] CLIA [id number] [address] [place] [address] [place] Chloride [Moles/Vol] 104 mmol/L Normal 97-105 [facility] Comment on above: Order Comment: Speci men Type: BLOOD SPECIMEN Ordering Facility: [facility] Address: [address] [place] [address] Performed By: #### 2 4323-8, 23584-3, 3024-7, 3053-6 #### [facility] CLIA [id number] [address] [place] [address] [place] CO2 [Moles/Vol] 26 mmol/L Normal 22-30 [facility] Comment on above: Order Comment: Speci men Type: BLOOD SPECIMEN Ordering Facility: [facility] Address: [address] [place], [place] [address] Performed By: #### 2 4323-8, 22783-7, 3024-7, 3053-6 #### [facility] CLIA [id number] [address] [place] [address] [place] Creatinine [Mass/Vol] 0.92 mg/dL Normal 0.58-0.96 [facility] Comment on above: Order Comment: Speci men Type: BLOOD SPECIMEN Ordering Facility: [facility] Address: [address] [place] [id number] Performed By: #### 2 4323-8, 85079-8, 3024-7, 3053-6 #### [facility] CLIA [id number] [address] [place] [address] [place] ESTIMATED GLOMERULAR FILTRATION RATE 86 mL/min/1.73m??? Normal >=60 [facility] Comment on above: Order Comment: Bailee hoffman Type: BLOOD SPECIMEN Ordering Facility: [facility] Address: [address] [place] [id number] Result Comment: Mitzy mated Glomerular Filtration Rate [...] actual GFR. Performed By: #### 2 4323-8, 42217-3, 3024-7, 3053-6 #### [facility] CLIA [id number] [facility] [place] [address] [place] Glucose [Mass/Vol] 95 mg/dL Normal 74-99 [facility] Comment on above: Order Comment: Bailee hoffman Type: BLOOD SPECIMEN Ordering Facility: [facility] Address: [address] [address] Result Comment: The [place] Diabetes Association (ADA) provides guidance for cutoff [...] Standards of Medical Care in Diabetes 2016, [place] Diabetes Association. Diabetes Care. 2016.39(Suppl 1). Performed By: #### 2 4323-8, 75781-2, 3024-7, 3053-6 #### [facility] CLIA [id number] [address] [place] [address] [place] Potassium [Moles/Vol] 4.4 mmol/L Normal 3.7-5.1 [facility] Comment on above: Order Comment: Speci men Type: BLOOD SPECIMEN Ordering Facility: [facility] Address: [address] [place], [place] [id number] Performed By: #### 2 4323-8, 16443-4, 3024-7, 3053-6 #### [facility] CLIA [id number] [address] [place] [address] [place] Protein [Mass/Vol] 7.4 g/dL Normal 6.3-8.0 [facility] Comment on above: Order Comment: Speci men Type: BLOOD SPECIMEN Ordering Facility: [facility] Address: [address] [place], [place] [address] Performed By: #### 2 4323-8, 65265-6, 3024-7, 3053-6 #### [facility] CLIA [id number] [address] [place] [address] [place] Sodium [Moles/Vol] 142 mmol/L Normal 136-144 [facility] Comment on above: Order Comment: Speci men Type: BLOOD SPECIMEN Ordering Facility: [facility] Address: [address] [place], [place] [address] Performed By: #### 2 4323-8, 86363-8, 3024-7, 3053-6 #### [facility] CLIA [id number] [address] [place] [address] [place] Urea nitrogen [Mass/Vol] 11 mg/dL Normal 7-21 [facility] Comment on above: Order Comment: Speci men Type: BLOOD SPECIMEN Ordering Facility: [facility] Address: [address] [place], [place] [address] Performed By: #### 2 4323-8, 50956-5, 3024-7, 3053-6 #### [facility] CLIA [id number] [address] [place] [address] [place] Cyclic citrullinated peptide IgG Qnon 02-08-2023 CCP ANTIBODY IGG QUALITATIVE Negative Normal Negative [facility] Comment on above: Order Comment: Speci men Type: BLOOD SPECIMEN Ordering Facility: [facility] Address: [address] [place], [place] [address] Performed By: #### 2 276-4, 3015-3, , 1988-03 #### [facility] CLIA [id number] [address] [place] [address] [place] Jo1 Ab Ser-aCncon 2022 Anel-1 extractable nuclear Ab Qn (S) <0.2 Normal <1.0 [facility] Comment on above: Order Comment: Speci men Type: BLOOD SPECIMEN Ordering Facility: [facility] Address: [address] [place], [place] [address] Performed By: #### 2 276-4, 3015-3, , 1988-03 #### [facility] CLIA [id number] [address] [place] [address] [place] STRATEGY INTERN Ab Ser-aCncon 2022 Ribonucleoprotein extractable nuclear Ab Qn (S) <0.2 Normal <1.0 [facility] Comment on above: Order Comment: Speci men Type: BLOOD SPECIMEN Ordering Facility: [facility] Address: [address] [place] [address] Performed By: #### 2 276-4, 3015-3, , 1988-03 #### [facility] CLIA [id number] [address] [place] [address] [place] SM IgG Ser-aCncon 2022 Ramires extractable nuclear IgG Qn (S) <0.2 Normal <1.0 [facility] Comment on above: Order Comment: Speci men Type: BLOOD SPECIMEN Ordering Facility: [facility] Address: [address] [place] [address] Performed By: #### 2 276-4, 301-3, , 1988-03 #### [facility] CLIA [id number] [address] [place] [address] [place] SS-A Ab Ser-aCncon 02-08 Sjogrens syndrome-A extractable nuclear Ab Qn (S) <0.2 Normal <1.0 [facility] Comment on above: Order Comment: Speci men Type: BLOOD SPECIMEN Ordering Facility: [facility] Address: [address] [place] [address] Result Comment: Test Methodology: Multiplex flow immunoassay. Performed By: #### 2 276-4, 3016-01, , 1988-03 #### [facility] CLIA [id number] [address] [place] [address] [place] SS-B Ab Ser-aCncon 02-08 Sjogrens syndrome-B extractable nuclear Ab Qn (S) <0.2 Normal <1.0 [facility] Comment on above: Order Comment: Speci men Type: BLOOD SPECIMEN Ordering Facility: [facility] Address: [address] [place] [address] Result Comment: Anti -SSB (anti-La) antibody is used as an aid in diagnosis of a variety of systemic autoimmune diseases, especially for Sjogren's syndrome and systemic lupus erythematosus. Clinical correlation is required. Test Methodology: Multiplex flow immunoassay. Performed By: #### 2 276-4, 3, , 1988-03 #### [facility] CLIA [id number] [facility] [place] [address] [place] ESR Westergren method (Bld) [Velocity]on 02-08-2023 ESR (Bld) [Velocity] 8 mm/h Normal 0-20 [facility] Comment on above: Order Comment: Speci men Type: BLOOD SPECIMEN Ordering Facility: [facility] Address: [address] [place], [place] [phone] Performed By: #### 2 276-4, 3016-3, 66156-4, 1988-03 #### [facility] CLIA [id number] [address] [place] [address] [place] Ferritin SerPl-mCncon 2022 Ferritin [Mass/Vol] 61.1 ng/mL Normal 14.7-205.1 [facility] Comment on above: Order Comment: Speci men Type: BLOOD SPECIMEN Ordering Facility: [facility] Address: [address] [place] [address] Performed By: #### 2 276-4, 3016-3, 00860-8, 1988-03 #### [facility] CLIA [id number] [address] [place] [address] [place] Iron and Iron binding capaci ty panelon 02-08-2023 Iron [Mass/Vol] 99 ug/dL Normal 41-186 [facility] Comment on above: Order Comment: Speci men Type: BLOOD SPECIMEN Ordering Facility: [facility] Address: [address] [place] [address] Performed By: #### 2 4323-8, 30527-8, 3024-7, 305-6 #### [facility] CLIA [id number] [address] [place] [address] [place] Iron binding capacity [Mass/Vol] 362 ug/dL Normal 232-386 [facility] Comment on above: Order Comment: Speci men Type: BLOOD SPECIMEN Ordering Facility: [facility] Address: [address] [place] [address] Performed By: #### 2 4323-8, 60021-6, 3024-7, 3053-6 #### [facility] CLIA [id number] [address] [place] [address] [place] Iron/TIBC [Molar ratio] 27.3 % Normal 15.0-57.0 [facility] Comment on above: Order Comment: Bailee hoffman Type: BLOOD SPECIMEN Ordering Facility: [facility] Address: [address] [place] [address] Performed By: #### 2 4323-8, 99375-8, 3024-7, 3053-6 #### [facility] CLIA [id number] [address] [place] [address] [place] Anel-1 extractable nuclear Ab Qn (S)on 02-08-2023 ANEL 1 ANTIBODY QUAL Negative Normal Negative [facility] Comment on above: Order Comment: Bailee hoffman Type: BLOOD SPECIMEN Ordering Facility: [facility] Address: [address] [place] [address] Result Comment: Anti -ANEL-1 antibody is used as an aid in diagnosis of polymyositis and dermatomyositis especially with pulmonary involvement. A negative result cannot rule out polymyositis or dermatomyositis. Clinical correlation is required. Test Methodology: Multiplex flow immunoassay. Performed By: #### 2 276-4, 3016-3, 68904-6, 1988-03 #### [facility] CLIA [id number] [address] [place] [address] [place] Nuclear Ab IA Ql (S)on 02-08 MARY BY EIA, QUAL Negative Normal Negative [facility] Comment on above: Order Comment: Specchris hoffman Type: BLOOD SPECIMEN Ordering Facility: [facility] Address: [address] [place] [address] Result Comment: The qualitative antinuclear antibody screen test performed using enzyme immunoassay including the following antigens: dsDNA, histones, SS-A, SS-B, Sm, Sm/STRATEGY INTERN, Scl-70, Anel-1, and centromeric antigens. Performed By: #### 2 276-4, 3016-3, 42147-2, 1988-03 #### [facility] CLIA [id number] [address] [place] [address] [place] Rheumatoid fact SerPl-aCncon 02-08-2023 Rheumatoid factor Qn [IU]/mL Normal <16 [facility] Comment on above: Order Comment: Speci dalton Type: BLOOD SPECIMEN Ordering Facility: [facility] Address: [address] [place] [address] Performed By: #### 2 276-4, 3016-3, 33820-1, 1988-03 #### [facility] CLIA [id number] [address] [place] [address] [place] Ribonucleoprotein extractabl e nuclear Ab Qn (S)on 02-08-2023 ANTI-STRATEGY INTERN QUAL Negative Normal Negative [facility] Comment on above: Order Comment: Bailee hoffman Type: BLOOD SPECIMEN Ordering Facility: [facility] Address: [address] [place] [address] Performed By: #### 2 276-4, 3016-3, , 1988-03 #### [facility] CLIA [id number] [address] [place] [address] [place] RIBOSOMAL STRATEGY INTERN QUAL Negative Normal Negative [facility] Comment on above: Order Comment: Bailee hoffman Type: BLOOD SPECIMEN Ordering Facility: [facility] Address: [address] [place] [address] Result Comment: Anti -Ribosomal RNA (Ribosomal P) antibody is used as an aid in diagnosis of systemic autoimmune diseases especially systemic lupus erythematosus and mixed connective tissue disease. Cross-reactivity with Anti-ramires antibody is not uncommon. Clinical correlation is required. Test Methodology: Multiplex flow immunoassay. Performed By: #### 2 276-4, 3016-3, 82956-2, 1988-03 #### [facility] CLIA [id number] [address] [place] [address] [place] SCL-70 extractable nuclear I gG IA Qn (S)on 02-08-2023 SCLERODERMA AB QUAL Negative Normal Negative [facility] Comment on above: Order Comment: Speci men Type: BLOOD SPECIMEN Ordering Facility: [facility] Address: [address] [address] Performed By: #### 2 276-4, 3015-3, , 1988-03 #### [facility] CLIA [id number] [address] [place] [address] [place] SCLERODERMA IGG AB <0.2 Normal <1.0 [facility] Comment on above: Order Comment: Speci men Type: BLOOD SPECIMEN Ordering Facility: [facility] Address: [address] [place] [address] Result Comment: Scl- 70/Scleroderma antibody test is used as an aid in diagnosis of systemic sclerosis especially the diffuse cutaneous form. A negative result cannot rule out systemic sclerosis. The final interpretation should consider clinical picture and other test results such as anti-centromere antibody. Test Methodology: Multiplex flow immunoassay. Performed By: #### 2 276-4, 3015-3, , 1988-03 #### [facility] CLIA [id number] [address] [place] [address] [place] Sjogrens syndrome-A extracta ble nuclear Ab Qn (S)on 02-08-2023 SSA ANTIBODY QUAL Negative Normal Negative [facility] Comment on above: Order Comment: Speci men Type: BLOOD SPECIMEN Ordering Facility: [facility] Address: [address] [address] Performed By: #### 2 276-4, 3015-3, , 1988-03 #### [facility] CLIA [id number] [address] [place] [address] [place] Sjogrens syndrome-B extracta ble nuclear Ab Qn (S)on 02-08-2023 SSB ANTIBODY QUAL Negative Normal Negative [facility] Comment on above: Order Comment: Speci men Type: BLOOD SPECIMEN Ordering Facility: [facility] Address: [address] Performed By: #### 2 276-4, 3015-3, , 1988-03 #### [facility] CLIA [id number] [address] [place] [address] [place] Ramires extractable nuclear Ig G Qn (S)on 02-08-2023 SM ANTIBODY QUAL Negative Normal Negative [facility] Comment on above: Order Comment: Speci dalton Type: BLOOD SPECIMEN Ordering Facility: [facility] Address: [address] [place] [address] Result Comment: Anti -Sm (Ramires) antibody is used as an aid in diagnosis of systemic lupus erythematosus and its presence is associated with renal disease. A negative result cannot rule out systemic lupus erythematosus. Clinical correlation is required. Test Methodology: Multiplex flow immunoassay. Performed By: #### 2 276-4, 3015-3, , 1988-03 #### [facility] CLIA [id number] [address] [place] [address] [place] T3 SerPl-mCncon 02-08-2023 T3 [Mass/Vol] 111 ng/dL Normal 79-165 [facility] Comment on above: Order Comment: Speci men Type: BLOOD SPECIMEN Ordering Facility: [facility] Address: [address] [place] [address] Performed By: #### 2 4323-8, 05895-2, 3024-7, 3053-6 #### [facility] CLIA [id number] [address] [place] [address] [place] T4 Free SerPl-mCncon 023 Free T4 [Mass/Vol] 1.0 ng/dL Normal 0.9-1.7 [facility] Comment on above: Order Comment: Speci men Type: BLOOD SPECIMEN Ordering Facility: [facility] Address: [address] [place] [address] Performed By: #### 2 4323-8, 78325-7, 3024-7, 3053-6 #### [facility] CLIA [id number] [address] [place] [address] OF AURE THYROID PEROXIDASE ANTIBODY BLOODon 02-08-2023 TPO Ab Qn [IU]/mL Normal <5.6 [facility] Comment on above: Order Comment: Bailee hoffman Type: BLOOD SPECIMEN Ordering Facility: [facility] Address: [address] [place] [address] Result Comment: Thyr oid Peroxidase Antibody test is used as an aid in diagnosis of autoimmune thyroid disease. Clinical correlation is required. Performed By: #### M ICRO #### [facility] CLIA [id number] [address] [place] [address] [place] TSH SerPl-aCncon 02-08-2023 TSH Qn 1.030 m[IU]/L Normal 0.270-4.200 [facility] Comment on above: Order Comment: Bailee hoffman Type: BLOOD SPECIMEN Ordering Facility: [facility] Address: [address] [place] [address] Result Comment: If t he patient is , TSH reference range varies by gestational period: First Trimester (weeks 9-12): 0.180-2.990 mIU/L Second Trimester: 0.110-3.980 mIU/L Third Trimester: 0.480-4.710 mIU/L Feliz Leblanc et al. A Practical Approach for the Verifications and Determination of Site- and Trimester-Specific Reference Intervals for Thyroid Function tests in . Thyroid, 2019:29:3:412-420. Pro E, et al. 2017 Guidelines of the [place] Thyroid Association for the Diagnosis and Management of Thyroid Disease during and the . Thyroid, 2017:27:3:315-389. Performed By: #### 2 276-4, 3016-3, 80276-0, 1987-5 #### [facility] CLIA [id number] [address] [place] [address] [place] Vit B12 SerPl-mCncon 023 Cobalamin (Vitamin B12) [Mass/Vol] 568 pg/mL Normal 232-1245 [facility] Comment on above: Order Comment: Bailee hoffman Type: BLOOD SPECIMEN Ordering Facility: [facility] Address: [address] [place] [address] Performed By: #### 2 276-4, 3016-3, 44493-6, 1988-03 #### [facility] CLIA [id number] [address] [place] [address] [place] AURE cCP IgG SerPl-aCncon 023 Cyclic citrullinated peptide IgG Qn <15 Normal <20 [facility] Comment on above: Order Comment: Speci men Type: BLOOD SPECIMEN Ordering Facility: [facility] Address: [address] [id number] Performed By: #### 2 276-4, 3016-3, 45565-9, 1988-03 #### [facility] CLIA [id number] [address] [place] [address] OF AURE CNOVon 01-26-2023 CNOV [facility] SUSANA MCCLAIN ([id number]) 1990 F Date Time Provider Department 01/26/23 1:40 PM MARCO ANTONIO COSTA During your visit today, we recorded the following information about you: Temperature Pulse Respiration Blood pressure 99.5 degrees 83/minute 16/minute 122/84 Weight 85.7 kg Marco Antonio Costa APRN.MECHANICAL MAINTENANCE WORKER 01/26/2023 4:02 PM Signed Chief Complaint Patient presents with: Pain, Back: Lower back, Abcess drained in Er - October 2022 HPI Susana Mcclain is a 32 year old female who presents here today for Above Complaints.. Today: Had abscess drained that was right by her tailbone in ED at [facility] on 10/2022. Seems to come back intermittently, [...] Grandfather Patient Allergies ALLERGIES Allergen Reactions Z Adbulaziz [Azithromycin] Rash Current Medications Current Outpatient Medications [...] - CCP (more content not included)... Normal [facility] UA DIP, URINE (POC)on 2021 BILIRUBIN UA (POCT) Negative Negative [facility] CLARITY UA (POCT) Clear [facility] COLOR UA (POCT) Yellow [facility] GLUCOSE UA (POCT) Negative Negative mg/dL [facility] HEMOGLOBIN/BLOOD UA (POCT) Trace-lysed Abnormal Negative [facility] KETONE UA (POCT) Negative Negative mg/dL [facility] LEUKOCYTES UA (POCT) Small Abnormal Negative [facility] NITRITE UA (POCT) Negative Negative [facility] PH UA (POCT) 6.0 4.5 - 8.0 [facility] Protein Ql (U) Negative Negative mg/dL [facility] SPECIFIC GRAVITY UA (POCT) <=1.005 Abnormal 1.005 - 1.030 [facility] UROBILINOGEN UA (POCT) 0.2 E.U./dL Normal E.U./dL [facility] US THYROID/PARATHYROIDon [facility] Clinical Summary: Liborio marrero 03-14-2022 [facility] OP Visit Invalid Interpretation Code [facility] Work Phone: [facility] OP Visit Invalid Interpretation Code [facility] Work Phone: ANES Daquan 10-15-2018 ANES POST HNO ID: [id number] Author: Alec Harris Service: Anesthesiology Author Type: [...] 2018 TIME: 3:44 PM PAGER/CONTACT #: anesthesia [facility] ANES PREOPon 10-15-2018 ANES PREOP HNO ID: [id number] Author: Chas Walsh Service: Anesthesiology Author Type: [...] Pati Tamayo Last Rate: 30 mL/hr at 10/15/18 0915 30 mL/hr at 10/15/18 0915 Allergies: ALLERGIES Allergen Reactions - Amitriptyline Other: See Comments Self report of aggressive behavior - Jonathan Cintron [Azithromycin] Rash DOS EXAM: Adequate NPO status: [...] October 15, 2018 TIME: 9:53 AM CSN: [id number] [facility] BRIEF OP NOTon 10-15-2018 BRIEF OP NOT HNO ID: [id number] Author: Pati Tamayo Service: Vascular Surgery Author Type: Physician Type: Brief Op Note Filed: 10/15/2018 2:15 PM Note Text: BRIEF OP NOTE LOG ID: [id number] Surgery/Procedure Date: 10/15/2018 Incision/Procedure Start Time: 12:10 PM Incision Close/Procedure End Time: 1:50 PM Surgeon(s)/Procedura list(s) and Acetaldehyde Converter Operator(s): Surgeon(s) and Role: * Pati Tamayo - [...] 15, 2018 TIME: 2:14 PM PAGER/CONTACT #: [facility] OPERATIVE NOon 10-15-2018 OPERATIVE NO HNO ID: [id number] Author: Pati Tamayo Service: Vascular Surgery Author Type: Physician Type: Operative Report Filed: 11/04/2018 1:40 PM Note Text: [facility] - Operative Report SUSANA MCCLAIN : 1990 AGE: 28. SEX: F PATIENT TYPE: A HOSP SVC: ALESSANDRO LOCATION: [facility] ATTENDING PHYSICIAN: Pati Tamayo D.O. CSN NUMBER: [id number] DATE OF SURGERY/PROCEDURE: 10/15/2018 INCISION/PROCEDURE START TIME: 12:10. INCISION CLOSE/PROCEDURE END TIME: 13:50. PREOPERATIVE DIAGNOSIS: Symptomatic varicose veins. POSTOPERATIVE DIAGNOSIS: Symptomatic varicose veins. SURGEON: Pati Tamayo D.O. SOFTWARE TEST AND VALIDATION ENGINEER: Roz Aldridge. SURGERY/PROCEDURE: Right leg stab phlebectomy, [...] this with the assistance of Roz Aldridge. Julienne Earl:[id number] /[id number] [facility] PT EDon 10-15-2018 PT ED HNO ID: [id number] Author: Micaela (Rn) JOE Geronimo Service: Nursing Author Type: Registered [...] Signed By: Micaela Geronimo RN In Department: [facility] SURGERY [facility] PT ED HNO ID: [id number] Author: Porsha (Rn) Felicia RN Service: (none) Author Type: Registered Nurse [...] Signed By: Porsha Tolentino RN In Department: [facility] SURGERY [facility] SURGICAL PATHOLOGYon 018 SURGICAL PATHOLOGY Specimen originated from [facility] Specimen #: [id number] Submitting Physician: PATI TAMAYO FINAL DIAGNOSIS Right [...] thrombi are identified. No calcification is present. Experimental Preflight Mechanic sections are submitted in one cassette. Gross examination performed at [facility] [place] [address] STORE TEAM MEMBER/lbk 10/15/2018 Date of Report: 10/16/2018 Date of Procedure: 10/15/2018 Date of Receipt: 10/15/2018 Submitted by: PATI TAMAYO Location: [facility] Diagnostic interpretation performed at [facility] [place] [address]. [facility] Comment on above: Performed By: #### P ATHS #### [employer] [address] [id number] [phone] HOSPon 09-03-2018 HOSP Patient:Susana Mcclain MRN: Height:5' [...] for the following basenames: K,HCT Progress Notes ([facility]): Sylvia Navarro APRN.CNP 10/02/2018 10:36 AM Signed This note was created using NoteWriter. Subjective Susana Mcclain is a 28 year old female. The history is provided by the patient. No topstitcher lockstitch was used. Neck Pain This is a [...] and exercise - f/u PRN Sylvia Navarro APRN.MECHANICAL MAINTENANCE WORKER [facility] Vital Signs Date Time Vital Sign Value Performing Clinician Facility 12-15-2024 08:00-0500 Body height 175.3 cm Angel Harris MD Work Phone: [phone] [place] [address] 12-15-2024 08:00-0500 Body mass index (BMI) [Ratio] 27.76 kg/m2 Angel Harris MD Work Phone: [phone] [address] 12-15-2024 08:00-0500 Body weight 85.28 kg Angel Harris MD Work Phone: [phone] [address] 12-15-2024 08:00-0500 Diastolic blood pressure 62 mm[Hg] Angel Harris MD Work Phone: [phone] [address] 12-15-2024 08:00-0500 Heart rate 58 /min Angel Harris MD Work Phone: [phone] [address] 12-15-2024 08:00-0500 SaO2% (BldA) [Mass fraction] 98 % Angel Harris MD Work Phone: [phone] [address] 12-15-2024 08:00-0500 Systolic blood pressure 112 mm[Hg] Angel Harris MD Work Phone: [facility] 01-20-2024 11:53-0500 Body temperature 98.6 [degF] Gloria Athy PA-C Work Phone: [facility] 01-20-2024 11:53-0500 Body weight 88.36 kg Gloria Athy PA-C Work Phone: [facility] 01-20-2024 11:53-0500 Diastolic blood pressure 80 mm[Hg] Gloria Athy PA-C Work Phone: [facility] 01-20-2024 11:53-0500 Heart rate 100 /min Gloria Athy PA-C Work Phone: [facility] 01-20-2024 11:53-0500 Respiratory rate 21 /min Gloria Athy PA-C Work Phone: [facility] 01-20-2024 11:53-0500 SaO2% (BldA) [Mass fraction] 98 % Gloria Escaleray PA-C Work Phone: [facility] 01-20-2024 11:53-0500 Systolic blood pressure 122 mm[Hg] Gloria Escaleray PA-C Work Phone: [facility] 01-26-2023 13:47-0500 Body temperature 99.5 [degF] Marco Antonio Julissa BODY FORMER.MECHANICAL MAINTENANCE WORKER Work Phone: [facility] 01-26-2023 13:47-0500 Body weight 85.73 kg Marco Antonio Julissa BODY FORMER.MECHANICAL MAINTENANCE WORKER Work Phone: [facility] 01-26-2023 13:47-0500 Diastolic blood pressure 84 mm[Hg] Marco Antonio Julissa BODY FORMER.MECHANICAL MAINTENANCE WORKER Work Phone: [facility] 01-26-2023 13:47-0500 Heart rate 83 /min Marco Antonio Julissa BODY FORMER.MECHANICAL MAINTENANCE WORKER Work Phone: [facility] 01-26-2023 13:47-0500 Respiratory rate 16 /min Marco Antonio Julissa BODY FORMER.MECHANICAL MAINTENANCE WORKER Work Phone: [facility] 01-26-2023 13:47-0500 SaO2% (BldA) [Mass fraction] 98 % Marco Antonio Julissa BODY FORMER.MECHANICAL MAINTENANCE WORKER Work Phone: [facility] 01-26-2023 13:47-0500 Systolic blood pressure 122 mm[Hg] Marco Antonio Julissa BODY FORMER.MECHANICAL MAINTENANCE WORKER Work Phone: [facility] 10-23-2022 11:02-0500 Body temperature 99.61 [degF] Chani Bogner PA-C Work Phone: [facility] 10-23-2022 11:02-0500 Body weight 84.91 kg Chani Bogner PA-C Work Phone: [facility] 10-23-2022 11:02-0500 Diastolic blood pressure 86 mm[Hg] Chani Bogner PA-C Work Phone: [facility] 10-23-2022 11:02-0500 Heart rate 84 /min Chani Bogner PA-C Work Phone: [facility] 10-23-2022 11:02-0500 Respiratory rate 20 /min Chani Bogner PA-C Work Phone: [facility] 10-23-2022 11:02-0500 SaO2% (BldA) [Mass fraction] 99 % Chani Bogner PA-C Work Phone: [facility] 10-23-2022 11:02-0500 Systolic blood pressure 124 mm[Hg] Chani Bogner PA-C Work Phone: [facility] 09-29-2022 11:08-0500 Body temperature 99 [degF] Divina Levi APRN.MECHANICAL MAINTENANCE WORKER Work Phone: [facility] 09-29-2022 11:08-0500 Body weight 85.55 kg Divina Levi APRN.MECHANICAL MAINTENANCE WORKER Work Phone: [facility] 09-29-2022 11:08-0500 Diastolic blood pressure 78 mm[Hg] Divina Levi APRN.MECHANICAL MAINTENANCE WORKER Work Phone: [facility] 09-29-2022 11:08-0500 Heart rate 90 /min Divina Levi APRN.MECHANICAL MAINTENANCE WORKER Work Phone: [facility] 09-29-2022 11:08-0500 Respiratory rate 16 /min Divina Levi APRN.MECHANICAL MAINTENANCE WORKER Work Phone: [facility] 09-29-2022 11:08-0500 SaO2% (BldA) [Mass fraction] 99 % Divina Levi APRN.MECHANICAL MAINTENANCE WORKER Work Phone: [facility] 09-29-2022 11:08-0500 Systolic blood pressure 138 mm[Hg] Divina Levi APRN.MECHANICAL MAINTENANCE WORKER Work Phone: [facility] 07-03-2022 15:13-0400 Body weight 83.92 kg Thuy Bonilla BODY FORMER.MECHANICAL MAINTENANCE WORKER Work Phone: [facility] 07-03-2022 15:13-0400 Diastolic blood pressure 78 mm[Hg] Thuy Zurawick BODY FORMER.MECHANICAL MAINTENANCE WORKER Work Phone: [facility] 07-03-2022 15:13-0400 Heart rate 82 /min Thuy Zurawick BODY FORMER.MECHANICAL MAINTENANCE WORKER Work Phone: [facility] 07-03-2022 15:13-0400 Respiratory rate 16 /min Thuy Zurawick BODY FORMER.MECHANICAL MAINTENANCE WORKER Work Phone: [facility] 07-03-2022 15:13-0400 Systolic blood pressure 122 mm[Hg] Thuy Zurawick BODY FORMER.MECHANICAL MAINTENANCE WORKER Work Phone: [facility] 06-07-2022 10:51-0400 Body height 178 cm Marco Antonio Julissa BODY FORMER.MECHANICAL MAINTENANCE WORKER Work Phone: [facility] 06-07-2022 10:51-0400 Body weight 85.19 kg Marco Antonio Julissa BODY FORMER.MECHANICAL MAINTENANCE WORKER Work Phone: [facility] 06-07-2022 10:51-0400 Diastolic blood pressure 78 mm[Hg] Marco Antonio Julissa BODY FORMER.MECHANICAL MAINTENANCE WORKER Work Phone: [facility] 06-07-2022 10:51-0400 Heart rate 107 /min Marco Antonio Julissa BODY FORMER.MECHANICAL MAINTENANCE WORKER Work Phone: [facility] 06-07-2022 10:51-0400 SaO2% (BldA) [Mass fraction] 97 % Marco Antonio Julissa BODY FORMER.MECHANICAL MAINTENANCE WORKER Work Phone: [facility] 06-07-2022 10:51-0400 Systolic blood pressure 118 mm[Hg] Marco Antonio Julissa BODY FORMER.MECHANICAL MAINTENANCE WORKER Work Phone: [facility] NEGATED: Highlighted [id number] 08:19-0400 Body height 175.26 cm Yasmin Darin AT [facility] Work Phone: NEGATED: Highlighted [id number] 08:19-0400 Body height 175 cm Yasmin Darin AT [facility] Work Phone: NEGATED: Highlighted [id number] 08:19-0400 Body mass index (BMI) [Ratio] 28.9 kg/m2 Yasmin Darin AT [facility] Work Phone: NEGATED: Highlighted [id number] 08:19-0400 Body weight 88.45 kg Yasmin Darin AT [facility] Work Phone: NEGATED: Highlighted [id number] 08:19-0400 Body weight 89 kg Yasmin Darin AT [facility] Work Phone: NEGATED: Highlighted [id number] 12:17-0500 Body height 175.26 cm [facility] Work Phone: NEGATED: Highlighted [id number] 12:17-0500 Body height 175 cm [facility] Work Phone: NEGATED: Highlighted [id number] 12:17-0500 Body mass index (BMI) [Ratio] 28.9 kg/m2 [facility] Work Phone: NEGATED: Highlighted [id number] 12:17-0500 Body weight 88.45 kg [facility] Work Phone: NEGATED: Highlighted [id number] 12:17-0500 Body weight 89 kg [facility] Work Phone: Encounters Encounter Date Encounter Type Care Provider Facility Start: 05-20-2025 Encounter for other preprocedural examination Tracey Ryan [facility] Start: 05-18-2025 End: 05-18-2025 ambulatory Yasmine Beavers Facility:[facility] Start: 05-18-2025 End: 05-18-2025 ambulatory Yasmine Beavers Facility:[facility] Start: 05-05-2025 End: 05-05-2025 ambulatory Yasmine Beavers Facility:[facility] Start: 04-24-2025 ambulatory Rohit Conteh Facility:[facility] Start: 04-24-2025 End: 04-24-2025 ambulatory Yasmine Beavers Facility:[facility] Start: 12-25-2024 ambulatory Angel Harris Facility :[facility] Start: 12-25-2024 End: 12-25-2024 ambulatory Yasmine Beavers Facility:[facility] Start: 12-15-2024 End: 12-15-2024 Office outpatient new 30 minutes Angel Harris MD Work Phone: [facility] Comment on above: Palpitations (Primar y Dx); Precordial chest pain; Shortness of breath; Tobacco use Start: 12-15-2024 ambulatory YASMINE BEAVERS Facility: [facility] Start: 11-28-2024 End: 11-28-2024 ambulatory Yasmine Beavers Facility:[facility] Start: 11-07-2024 End: 11-07-2024 ambulatory Yasmine Beavers Facility:[facility] Start: 10-21-2024 End: 10-21-2024 ambulatory Yasmine Beavers Facility:[facility] Start: 10-01-2024 End: 10-01-2024 ambulatory Yasmine Beavers Facility:[facility] Start: 09-16-2024 End: 09-16-2024 ambulatory Yasmine Beavers Facility:[facility] Start: 08-22-2024 End: 08-22-2024 ambulatory Yasmine Beavers Facility:[facility] Start: 07-28-2024 ambulatory Yasmine Beavers Facilit y:[facility] Start: 06-11-2024 ambulatory Rohit Conteh Facility:[facility] Start: 06-11-2024 End: 06-11-2024 ambulatory Yasmine Beavers Facility:[facility] Start: 05-23-2024 End: 05-23-2024 Emergency department patient visit Yasmine Beavers Facility:[facility] Start: 04-23-2024 End: 04-23-2024 Emergency department patient visit DIANE TAVAREZ [facility] Start: 01-22-2024 Telephone encounter Divina Gurmeet BODY FORMER.MECHANICAL MAINTENANCE WORKER Work Phone: [facility] Comment on above: Results; Orders Start: 01-20-2024 End: 01-20-2024 ambulatory ROBER SABA Facility:[facility] Start: 01-20-2024 End: 01-20-2024 Patient encounter procedure Gloria Barrera PA-C Work Phone: [facility] Comment on above: Surgical wound infec tion (Primary Dx) Start: 12-26-2023 ambulatory FLOR MAST BODY FORMER-MECHANICAL MAINTENANCE WORKER Fa cility:[facility] Start: 09-14-2023 End: 09-19-2023 ambulatory FLOR MAST BODY FORMER-MECHANICAL MAINTENANCE WORKER Facility:[facility] Start: 06-28-2023 End: 06-28-2023 Emergency department patient visit [facility]AC[facility] Start: 03-05-2023 Refill Deneen lindsay BODY FORMER.MECHANICAL MAINTENANCE WORKER Work Phone: Psychiatry Comment on above: Refill Request Start: 02-09-20[address] Marco Antonio [facility] BODY FORMER.MECHANICAL MAINTENANCE WORKER Work Phone: [facility] Comment on above: Results Start: 02-08-2023 End: 02-09-2023 ambulatory MARCO ANTONIO JULISSA Facility:[facility] Start: 02-08-2023 Encounter for genera l adult medical examination without abnormal findings ROBER HOWARDON [facility] Start: 02-05-2023 End: 02-06-2023 ambulatory DENEEN ROLON Facility:[facility] Start: 02-05-2023 End: 02-05-2023 ambulatory Deneen Rolon BODY FORMER.MECHANICAL MAINTENANCE WORKER Work Phone: Psychiatry Comment on above: NO SHOW (Primary Dx) Start: 02-05-2023 End: 02-05-2023 Telemedicine consultation with patient Deneen Rolon BODY FORMER.MECHANICAL MAINTENANCE WORKER Work Phone: [facility] Start: 01-26-2023 End: 01-26-2023 ambulatory ROBER SABA Facility:[facility] Start: 01-26-2023 End: 01-26-2023 Patient encounter procedure Marco Antonio Julissa ANDRADE.MECHANICAL MAINTENANCE WORKER Work Phone: [facility] Comment on above: Cyst near tailbone ( Primary Dx); Myalgia; Arthralgia, unspecified joint; Sensation of foreign body in throat; Well adult exam; Elevated serum creatinine; Vitamin D deficiency; Screening for diabetes mellitus; Encounter for vitamin deficiency screening; Screening for thyroid disorder Start: 01-26-2023 End: 01-26-2023 Patient encounter status Marco Antonio Costa ULPE.MECHANICAL MAINTENANCE WORKER Work Phone: [facility] [place] Start: 12-18-2022 End: 12-18-2022 [facility] Deneenchris Rolon APRN.MECHANICAL MAINTENANCE WORKER Work Phone: Psychiatry Comment on above: Generalized anxiety disorder (Primary Dx); Bipolar 1 disorder, depressed, moderate (HCC); History of attention deficit hyperactivity disorder (ADHD); History of posttraumatic stress disorder (PTSD) Start: 11-14-2022 End: 11-14-2022 [facility] Deneen Rolon APRN.MECHANICAL MAINTENANCE WORKER Work Phone: Psychiatry Comment on above: 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); Generalized anxiety disorder; History of attention deficit hyperactivity disorder (ADHD) Start: 10-23-2022 ambulatory Rober troy DO Work Phone: [facility] Comment on above: Nasal Congestion; Co ugh Start: 10-23-2022 Telephone encounter Rober evans DO Work Phone: [facility] Comment on above: Migraine; Fever Start: 10-23-2022 End: 10-23-2022 Office outpatient visit 15 minutes Chani Vaughn PA-C Work Phone: [facility] Comment on above: Acute cough (Primary Dx); Nasal congestion Start: 10-13-2022 End: 10-13-2022 [facility] Deneen Rolon APRN.MECHANICAL MAINTENANCE WORKER Work Phone: Psychiatry Comment on above: 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); History of posttraumatic stress disorder (PTSD) Start: 09-29-2022 End: 09-29-2022 Patient encounter procedure Divina Levi APRN.MECHANICAL MAINTENANCE WORKER Work Phone: [facility] Comment on above: Urinary frequency (P rimary Dx); SOB (shortness of breath) Start: 07-03-2022 End: 07-03-2022 Patient encounter procedure Thuy Bonilla BODY FORMER.MECHANICAL MAINTENANCE WORKER Work Phone: [facility] Comment on above: Bipolar disorder, in partial remission, most recent episode depressed (HCC) (Primary Dx); Chronic insomnia; ALFREDO (generalized anxiety disorder) Start: 07-03-2022 Telephone encounter Amie PIERSONW Work Phone: Psychology Comment on above: outreach Start: 06-23-2022 Telephone encounter Rober miltonrob DO Work Phone: [facility] Comment on above: Patient Update Start: 06-20-2022 ambulatory Rober troy DO Work Phone: [facility] Comment on above: Er visit Start: 06-19-2022 Telephone encounter Marco Antonio Cheema APRN.MECHANICAL MAINTENANCE WORKER Work Phone: [facility] [place] Comment on above: Opened In Error Start: 06-19-2022 End: 06-19-2022 [facility] Work Phone: Cat Scan Comment on above: Lung nodules [R91.8] Start: 06-14-2022 End: 06-14-2022 Subsequent hospital visit by physician [facility] Work Phone: Radiology Comment on above: Dysphagia, unspecifi ed type [R13.10] Start: 06-07-2022 End: 06-07-2022 Patient encounter procedure Marco Antonio Costa APRN.MECHANICAL MAINTENANCE WORKER Work Phone: [facility] Comment on above: Well adult exam (Kyra samantha Dx); Agoraphobia; Bipolar disorder, in partial remission, most recent episode depressed (HCC); Chronic insomnia; Lung nodules; Screening for diabetes mellitus; Screening for thyroid disorder; Screening for lipid disorders; Dysphagia, unspecified type; Sensation of foreign body in throat; Encounter for vitamin deficiency screening Start: 06-07-2022 End: 06-07-2022 Patient encounter status Marco Antonio Julissa BODY FORMER.MECHANICAL MAINTENANCE WORKER Work Phone: [facility] [place] Start: 05-31-2022 End: 05-31-2022 Patient encounter procedure Zeny Sher BODY FORMER.MECHANICAL MAINTENANCE WORKER Work Phone: [facility] Comment on above: Pilonidal abscess of cleft (Primary Dx) Start: 05-31-2022 ambulatory Rober Mckeon son DO Work Phone: [facility] Comment on above: LESION, SKIN Start: 03-18-2022 ambulatory Cici Briones RN N [employer]EL[employer] Comment on above: Covid19 Concern Start: 03-18-2022 Distance Health (Vis it Summary) [facility] Provider External-[facility] Comment on above: Acute sinusitis, uns pecified - Diarrhea, unspecified - Nausea with vomiting, unspecified Start: 03-18-2022 External Contact [facility] Provi abhi EXTERNAL-[facility] Start: 01-27-2022 End: 01-27-2022 Pt evaluation Andry Rivera MD Work Phone: [facility] Work Phone: Procedures Date Procedure Procedure Detail Performing Clinician Start: 09-29-2022 Urnls dip stick/tabl et rgnt auto w/o microscopy Boaz Matute MD Work Phone: Start: 06-19-2022 Ct thorax w/o contra st material Marco Antonio Costa BODY FORMER.MECHANICAL MAINTENANCE WORKER Work Phone: Start: 06-14-2022 Us soft tissue head & neck real time imge docm Marco Antonio Costa BODY FORMER.MECHANICAL MAINTENANCE WORKER Work Phone: Start: 03-14-2022 End: 03-14-2022 BP scrn no perf at interval Nabil Wang PA-C Work Phone: Start: 03-14-2022 End: 03-14-2022 Calc BMI abv up sissy f/u Nabil Wang PA-C Work Phone: Start: 03-14-2022 End: 03-14-2022 Current tobacco non-user cad cap copd pv dm Nabil Wang PA-C Work Phone: Start: 03-14-2022 End: 03-14-2022 Docrev cur meds by munira Wang PA-C Work Phone: Start: 03-14-2022 End: [...] 01-27-2022 End: 01-27-2022 Documentation of current medications [facility] Plan of Treatment Date Care Activity Detail Author Start: 05-17-2031 Tetanus vaccination TETANUS [facility] Start: 05-17-2031 Urine microalbumin profile DTaP,Tdap,Td Vaccine (8 - Td or Tdap) [facility] Start: 02-19-2027 Urine microalbumin profile DTAP,TDAP,TD (2 - Td or Tdap) [facility] Start: 06-02-2025 ambulatory Ambulatory Facility:[facility] Start: 07-20-2024 COVID-19 VACCINE () COVID-19 VACCINE () [facility] Start: 01-20-2024 End: 04-20-2024 Bacteria identified in Wound by Culture ABSCESS AND WOUND CULTURE WITH GRAM STAIN Microbiology Routine Surgical wound infection Expected: 01/20/2024, Expires: 04/20/2024 [facility] Work Phone: Comment on above: Expected: 01/20/2024, Expires: 4 Start: 11-19-2023 Depression Assessment Depression Assessment [facility] Start: 07-20-2023 Covid-19 Vaccine () Covid-19 Vaccine () [facility] Start: 07-20-2023 Influenza vaccination Influenza Vaccine (#1) [facility] Start: 01-26-2023 End: 03-28-2023 25-hydroxyvitamin D3 [Mass/volume] in Serum or Plasma VITAMIN D 25 HYDROXY Lab Routine Vitamin D deficiency Expected: 01/26/2023, Expires: 03/28/2023 [facility] Work Phone: Comment on above: Expected: 01/26/2023, Expires: 3 Start: 01-26-2023 End: 03-28-2023 C reactive protein [Mass/volume] in Serum or Plasma C-REACTIVE PROTEIN (CRP) Lab Routine Well adult exam Myalgia Arthralgia, unspecified joint Expected: 01/26/2023, Expires: 03/28/2023 [facility] Work Phone: Comment on above: Expected: 01/26/2023, Expires: 3 Start: 01-26-2023 End: 03-28-2023 CBC panel - Blood by Automated count CBC Lab Routine Screening for diabetes mellitus Well adult exam Myalgia Arthralgia, unspecified joint Expected: 01/26/2023, Expires: 03/28/2023 [facility] Work Phone: Comment on above: Expected: 01/26/2023, Expires: 3 Start: 01-26-2023 End: 03-28-2023 Cobalamin (Vitamin B12) [Mass/volume] in Serum or Plasma VITAMIN B12 BLOOD Lab Routine Vitamin D deficiency Encounter for vitamin deficiency screening Expected: 01/26/2023, Expires: 03/28/2023 [facility] Work Phone: Comment on above: Expected: 01/26/2023, Expires: 3 Start: 01-26-2023 End: 03-28-2023 Comprehensive metabolic 2000 panel - Serum or Plasma COMP METABOLIC PANEL Lab Routine Screening for diabetes mellitus Elevated serum creatinine Well adult exam Myalgia Arthralgia, unspecified joint Expected: 01/26/2023, Expires: 03/28/2023 [facility] Work Phone: Comment on above: Expected: 01/26/2023, Expires: 3 Start: 01-26-2023 End: 03-28-2023 Cyclic citrullinated peptide IgG Ab [Units/volume] in Serum or Plasma CCP ANTIBODY IGG Lab Routine Well adult exam Myalgia Arthralgia, unspecified joint Expected: 01/26/2023, Expires: 03/28/2023 [facility] Work Phone: Comment on above: Expected: 01/26/2023, Expires: 3 Start: 01-26-2023 End: 03-28-2023 Erythrocyte sedimentation rate SED RATE WESTERGREN Lab Routine Well adult exam Myalgia Arthralgia, unspecified joint Expected: 01/26/2023, Expires: 03/28/2023 [facility] Work Phone: Comment on above: Expected: 01/26/2023, Expires: 3 Start: 01-26-2023 End: 03-28-2023 Extractable nuclear Ab panel - Serum ANTI MARIPOSA ID Lab Routine Well adult exam Myalgia Arthralgia, unspecified joint Expected: 01/26/2023, Expires: 03/28/2023 [facility] Work Phone: Comment on above: Expected: 01/26/2023, Expires: 3 Start: 01-26-2023 End: 03-28-2023 Ferritin [Mass/volume] in Serum or Plasma FERRITIN BLD Lab Routine Well adult exam Myalgia Arthralgia, unspecified joint Expected: 01/26/2023, Expires: 03/28/2023 [facility] Work Phone: Comment on above: Expected: 01/26/2023, Expires: 3 Start: 01-26-2023 End: 03-28-2023 Iron and Iron binding capacity panel - Serum or Plasma IRON + TIBC Lab Routine Well adult exam Myalgia Arthralgia, unspecified joint Expected: 01/26/2023, Expires: 03/28/2023 [facility] Work Phone: Comment on above: Expected: 01/26/2023, Expires: 3 Start: 01-26-2023 End: 03-28-2023 Nuclear Ab [Presence] in Serum by Immunoassay MARY BLOOD Lab Routine Well adult exam Myalgia Arthralgia, unspecified joint Expected: 01/26/2023, Expires: 03/28/2023 [facility] Work Phone: Comment on above: Expected: 01/26/2023, Expires: 3 Start: 01-26-2023 End: 03-28-2023 Rheumatoid factor [Units/volume] in Serum or Plasma RHEUMATOID FACTOR BL Lab Routine Well adult exam Myalgia Arthralgia, unspecified joint Expected: 01/26/2023, Expires: 03/28/2023 [facility] Work Phone: Comment on above: Expected: 01/26/2023, Expires: 3 Start: 01-26-2023 End: 03-28-2023 THYROID PEROXIDASE ANTIBODY BLOOD THYROID PEROXIDASE ANTIBODY BLOOD Lab Routine Well adult exam Screening for thyroid disorder Myalgia Arthralgia, unspecified joint Expected: 01/26/2023, Expires: 03/28/2023 [facility] Work Phone: Comment on above: Expected: 01/26/2023, Expires: 3 Start: 01-26-2023 End: 03-28-2023 Thyrotropin [Units/volume] in Serum or Plasma TSH BLD Lab Routine Well adult exam Screening for thyroid disorder Myalgia Arthralgia, unspecified joint Expected: 01/26/2023, Expires: 03/28/2023 [facility] Work Phone: Comment on above: Expected: 01/26/2023, Expires: 3 Start: 01-26-2023 End: 03-28-2023 Thyroxine (T4) free [Mass/volume] in Serum or Plasma T4 FREE/FREE THYROX Lab Routine Well adult exam Screening for thyroid disorder Myalgia Arthralgia, unspecified joint Expected: 01/26/2023, Expires: 03/28/2023 [facility] Work Phone: Comment on above: Expected: 01/26/2023, Expires: 3 Start: 01-26-2023 End: 03-28-2023 Triiodothyronine (T3) [Mass/volume] in Serum or Plasma T3 BLD Lab Routine Well adult exam Screening for thyroid disorder Myalgia Arthralgia, unspecified joint Expected: 01/26/2023, Expires: 03/28/2023 [facility] Work Phone: Comment on above: Expected: 01/26/2023, Expires: 3 Start: 11-19-2022 DEPRESSION ASSESSMENT DEPRESSION ASSESSMENT [facility] Start: 07-20-2022 Influenza vaccination INFLUENZA (#1) [facility] Start: 06-07-2022 End: 08-07-2022 25-hydroxyvitamin D3 [Mass/volume] in Serum or Plasma VITAMIN D 25 HYDROXY Lab Routine Well adult exam Encounter for vitamin deficiency screening Expected: 06/07/2022, Expires: 08/07/2022 [facility] Work Phone: Comment on above: Expected: 06/07/2022, Expires: 2 Start: 06-07-2022 End: 08-07-2022 CBC panel - Blood by Automated count CBC Lab Routine Well adult exam Screening for diabetes mellitus Expected: 06/07/2022, Expires: 08/07/2022 [facility] Work Phone: Comment on above: Expected: 06/07/2022, Expires: 2 Start: 06-07-2022 End: 08-07-2022 Cobalamin (Vitamin B12) [Mass/volume] in Serum or Plasma VITAMIN B12 BLOOD Lab Routine Well adult exam Encounter for vitamin deficiency screening Expected: 06/07/2022, Expires: 08/07/2022 [facility] Work Phone: Comment on above: Expected: 06/07/2022, Expires: 2 Start: 06-07-2022 End: 08-07-2022 Comprehensive metabolic 2000 panel - Serum or Plasma COMP METABOLIC PANEL Lab Routine Well adult exam Screening for diabetes mellitus Expected: 06/07/2022, Expires: 08/07/2022 [facility] Work Phone: Comment on above: Expected: 06/07/2022, Expires: 2 Start: 06-07-2022 End: 08-07-2022 Ferritin [Mass/volume] in Serum or Plasma FERRITIN BLD Lab Routine Chronic insomnia Well adult exam Expected: 06/07/2022, Expires: 08/07/2022 [facility] Work Phone: Comment on above: Expected: 06/07/2022, Expires: 2 Start: 06-07-2022 End: 08-07-2022 Hemoglobin A1c in Blood HGB A1C Lab Routine Well adult exam Screening for diabetes mellitus Expected: 06/07/2022, Expires: 08/07/2022 [facility] Work Phone: Comment on above: Expected: 06/07/2022, Expires: 2 Start: 06-07-2022 End: 08-07-2022 Iron and Iron binding capacity panel - Serum or Plasma IRON + TIBC Lab Routine Chronic insomnia Well adult exam Expected: 06/07/2022, Expires: 08/07/2022 [facility] Work Phone: Comment on above: Expected: 06/07/2022, Expires: 2 Start: 06-07-2022 End: 08-07-2022 Lipid 1996 panel - Serum or Plasma LIPID PANEL BASIC Lab Routine Well adult exam Screening for diabetes mellitus Screening for lipid disorders Expected: 06/07/2022, Expires: 08/07/2022 [facility] Work Phone: Comment on above: Expected: 06/07/2022, Expires: 2 Start: 06-07-2022 End: 08-07-2022 Thyroglobulin and Thyrogobulin Ab panel - Serum or Plasma THYROGLOBULIN BLD Lab Routine Well adult exam Screening for thyroid disorder Sensation of foreign body in throat Expected: 06/07/2022, Expires: 08/07/2022 [facility] Work Phone: Comment on above: Expected: 06/07/2022, Expires: 2 Start: 06-07-2022 End: 08-07-2022 THYROID PEROXIDASE ANTIBODY BLOOD THYROID PEROXIDASE ANTIBODY BLOOD Lab Routine Well adult exam Screening for thyroid disorder Sensation of foreign body in throat Expected: 06/07/2022, Expires: 08/07/2022 [facility] Work Phone: Comment on above: Expected: 06/07/2022, Expires: 2 Start: 06-07-2022 End: 08-07-2022 Thyrotropin [Units/volume] in Serum or Plasma TSH BLD Lab Routine Well adult exam Screening for diabetes mellitus Screening for thyroid disorder Expected: 06/07/2022, Expires: 08/07/2022 [facility] Work Phone: Comment on above: Expected: 06/07/2022, Expires: 2 Start: 06-07-2022 End: 08-07-2022 Thyroxine (T4) free [Mass/volume] in Serum or Plasma T4 FREE/FREE THYROX Lab Routine Well adult exam Screening for thyroid disorder Sensation of foreign body in throat Expected: 06/07/2022, Expires: 08/07/2022 [facility] Work Phone: Comment on above: Expected: 06/07/2022, Expires: 2 Start: 06-07-2022 End: 08-07-2022 Triiodothyronine (T3) [Mass/volume] in Serum or Plasma T3 BLD Lab Routine Well adult exam Screening for thyroid disorder Sensation of foreign body in throat Expected: 06/07/2022, Expires: 08/07/2022 [facility] Work Phone: Comment on above: Expected: 06/07/2022, Expires: 2 Start: 05-16-2022 End: 05-16-2022 Patient encounter procedure Appointment [facility] Work Phone: Start: 04-07-2022 COVID-19 VACCINE (3 - Booster for Pfizer series) COVID-19 VACCINE (3 - Booster for Pfizer series) [facility] Start: 03-14-2022 End: 03-14-2022 Patient encounter procedure Appointment [facility] Work Phone: Start: 01-27-2022 End: 01-27-2022 Patient encounter procedure Appointment [facility] Work Phone: Start: 01-02-2022 COVID-19 VACCINE (3 - Booster for Pfizer series) COVID-19 VACCINE (3 - Booster for Pfizer series) [facility] Start: 11-19-2021 DEPRESSION ASSESSMENT DEPRESSION ASSESSMENT [facility] Start: 11-07-2021 COVID-19 VACCINE (2 - Pfizer 3-dose series) COVID-19 VACCINE (2 - Pfizer 3-dose series) [facility] Start: 2021 HPV TESTING HPV TESTING [facility] Start: 2021 Screening for malignant neoplasm of cervix HPV Testing [facility] Start: 05-03-2020 PAP TESTING PAP TESTING [facility] Start: 05-03-2020 Screening for malignant neoplasm of cervix Pap Testing [facility] Start: 10-02-2019 Adult depression screening assessment DEPRESSION SCREENING [facility] Start: 2012 Screening for malignant neoplasm of cervix CERVICAL CANCER SCREENING DISCUSSION [facility] Start: 2010 ONE PNEUMOVAX PRIOR TO AGE 65 ONE PNEUMOVAX PRIOR TO AGE 65 [facility] Start: 2006 HIV screening HIV SCREENING DISCUSSION [facility] Start: 1997 PNEUMOCOCCAL (1 - PCV) PNEUMOCOCCAL (1 - PCV) [facility] Start: 1997 Pneumococcal vaccination Pneumococcal Vaccine (1 of 2 - PCV) [facility] Start: 1991 HEPATITIS B (1 of 3 - 3-dose series) HEPATITIS B (1 of 3 - 3-dose series) [facility] Start: 1991 Hepatitis C screening HEPATITIS C VIRUS SCREENING [facility] End: 07-07-2023 Ct thorax w/o contrast material CT CHEST WO IVCON Radiology Routine Lung nodules 1 Occurrences starting 06/07/2022 until 07/07/2023 [facility] Work Phone: Comment on above: 1 Occurrences starting 06/07/2022 until 07/07/2023 Ct thorax w/o contra st material CT CHEST WO IVCON Radiology Routine Lung nodules 06/19/2022 11:[address] [facility] Work Phone: Ecg routine ecg w/le ast 12 lds w/i&r NH ECG ROUTINE ECG W/LEAST 12 LDS W/I&R NH - OFFICE PERFORMED Routine Palpitations Precordial chest pain Shortness of breath Ordered: 12/15/[address] [facility] Comment on above: Ordered: 12/15/2024 Electrocardiogram wi th exercise test ECG, TREADMILL STRESS (NON-IMAGING) Stress Echocardiography Routine Palpitations Precordial chest pain Shortness of breath Ordered: 12/15/[address] [facility] Comment on above: Ordered: 12/15/2024 Influenza virus A an d B RNA and SARS-CoV-2 (COVID-19) N gene panel - Respiratory specimen by KRUPA with probe detection COVID WITH FLUA+B, ROUTINE Microbiology Routine Acute cough Nasal congestion 10/23/2022 11:[address] [facility] Work Phone: End: 07-07-2023 Us soft tissue head & neck real time imge docm US THYROID/PARATHYROID Radiology Routine Dysphagia, unspecified type Sensation of foreign body in throat 1 Occurrences starting 06/07/2022 until 07/07/2023 [facility] Work Phone: Comment on above: 1 Occurrences starting 06/07/2022 until 07/07/2023 [facility] Immunizations Immunization Date Immunization Notes Care Provider Nicholas savage 09-06-2022 influenza virus vaccine, unspecified formulation Gloria Barrera PA-C Work Phone: [facility] 09-10-2019 influenza, injectabl e, quadrivalent, contains preservative Cici Briones RN [facility] Work Phone: 08-06-2017 influenza, injectabl e, quadrivalent, contains preservative Cici Briones RN [facility] 02-19-2017 tetanus toxoid, redu jonn diphtheria toxoid, and acellular pertussis vaccine, adsorbed Cici Briones RN [facility] Work Phone: 09-30-2015 influenza, injectabl e, quadrivalent, contains preservative Cici Briones RN [facility] 10-27-2014 influenza, seasonal, injectable Cici Briones RN [facility] Work Phone: 08-14-2011 influenza virus vaccine, unspecified formulation Cici Briones RN [facility] Payers Date Payer Category Payer Self-pay 2023 Unknown [id number] 2023 Unknown [id number] 2022 Unknown [id number] 2021 Unknown MMO MMO TPA [id number] 2021-Present [address] [place] [address] PPO [id number] 2021 Unknown [id number] 2017 Medicaid [place] [employer] [place] [employer] [id number] 2017-Present [phone] [address] [place] [address] Medicaid [id number] 2017 Medicaid [id number] [id number] 1991 Unknown [id number] 1991 Unknown [id number] [id number] 1991 Unknown [id number] 2.840.1.061140.3.579.2.651 1991 Unknown [id number] 2.840.1.751100.3.579.2.651 1991 Unknown [id number] 2.840.1.266703.3.579.2.594 Unknown [id number] [id number] Unknown [id number] 2.16.840.1.155249.3.579.2.462 Unknown [id number] 2.16.840.1.114389.3.579.2.462 Unknown [id number] 2.16.840.1.768263.3.579.2.462 Unknown [id number] 2.16840.1.131497.3.579.2.462 Unknown [id number] 2.16840.1.428803.3.579.2.462 Unknown [id number] 2.16.840.1.093608.3.579.2.462 Unknown [id number] 2.16.840.1.034900.3.579.2.462 Unknown [id number] 2.16.840.1.962808.3.579.2.462 Unknown [id number] 2.16.840.1.537632.3.579.2.462 Unknown [id number] 2.16.840.1.912971.3.579.2.462 Unknown [id number] 2.16.840.1.982585.3.579.2.462 Unknown [id number] 2.16.840.1.954134.3.579.2.462 Unknown [id number] 2.16.840.1.573733.3.579.2.462 Unknown [id number] 2.16.840.1.715763.3.579.2.462 Unknown [id number] 2.16.840.1.194664.3.579.2.462 Unknown [id number] [id number] Unknown [id number] [id number] Social History Date Type Detail Facility Start: 01-27-2022 End: 03-14-2022 Assertion Unknown if ever smoked [facility] Work Phone: Start: 10-14-2018 End: 10-13-2022 Tobacco smoking status NHIS Smokes tobacco daily [facility] Work Phone: Start: 12-15-2019 End: 10-19-2008 History of tobacco use Cigarette Smoker [facility] Work Phone: End: 10-19-2008 History of tobacco use Cigar Smoker [facility] Work Phone: Start: 10-14-2018 End: 12-15-2024 Tobacco use and exposure Smokeless tobacco non-user [facility] Work Phone: Start: 09-24-2020 End: 01-20-2024 Alcohol intake Current drinker of alcohol (finding) [facility] Start: 08-18-2020 End: 09-24-2020 History SDOH Alcohol Frequency 2 [facility] Start: 04-23-2020 End: 08-18-2020 History SDOH Alcohol Std Drinks 1 [facility] Start: 10-14-2018 History SDOH Alcohol Comment occasionally-does not drink on weekly basis [facility] Start: 04-23-2020 End: 08-18-2020 History SDOH Social Connections Phone 5 [facility] Start: 08-18-2020 End: 09-24-2020 History SDOH Social Connections Get Together 98 [facility] Start: 04-23-2020 End: 09-24-2020 History SDOH Social Connections Living 3 [facility] Start: 04-23-2020 Education 12 [facility] Start: 10-14-2018 End: 09-29-2022 Tobacco Comment 8 cigars per day-for about 1 month as of 10/14/18-previously smoked cigarettes on & off until 2007 [facility] Start: 1991 Sex Assigned At Not on file [facility] Start: 03-08-2022 End: 10-23-2022 Exposure to SARS-CoV-2 (event) Not sure [facility] Start: 09-19-2022 End: 09-29-2022 Exposure to SARS-CoV-2 (event) Yes [facility] Work Phone: Start: 10-13-2022 End: 12-15-2024 Cigarettes smoked current (pack per day) - Reported 0.5 [facility] Start: 08-18-2020 End: 12-15-2024 Social connection and isolation panel [facility] Frequency of Communication with Friends and Family Not on file [facility] How often to you hav e a drink containing alcohol? Monthly or less [facility] How many standard dr inks containing alcohol do you have on a typical day? 1 or 2 [facility] How often do you hav e 6 or more drinks on 1 occasion? Less than monthly [facility] How hard is it for y ou to pay for the very basics like food, housing, medical care, and heating Somewhat hard [facility] Work Phone: Do you feel stress - tense, restless, nervous, or anxious, or unable to sleep at night because your mind is troubled all the time - these days [OSQ] Very much [facility] (I/We) worried danis er (my/our) food would run out before (I/we) got money to buy more. Often true [facility] Work Phone: The food that (I/we) bought just didn't last, and (I/we) didn't have money to get more. DK or Refused [facility] Work Phone: At any time in the p ast 12 months, were you homeless or living in detention [including now]? No [facility] Start: 12-15-2024 Tobacco smoking status NHIS Ex-smoker [facility] Start: 12-15-2019 History of tobacco use Current smoker [facility] Start: 12-15-2024 Alcoholic beverage intake Ex-drinker (finding) [facility] Start: 12-14-2024 Gender identity Identifies as female gender (finding) [facility] Start: 12-14-2024 Sexual orientation Heterosexual (finding) [facility] Medical Equipment Procedure Code Equipment Code Equipment Origin al Text Equipment Identifier Dates [employer] - [id number] Start: 12-02-2013 Clinical Notes 08-31-2014 to [...] intake for both cardiac and noncardiac reasons. [facility] 12-15-2024 Miscellaneous Notes Associated Problem(s): Tobacco use [...] channel antagonist therapy. documented in this encounter [facility] 12-15-2024 Evaluation + Plan note Associated Problem(s): [...] she admits to being a cigarette smoker. [facility] 12-15-2024 Evaluation + Plan note Associated Problem(s): Precordial chest pain She does have an element of precordial chest pain. It is somewhat atypical. However, it was felt reasonable that she undergo further evaluation with a treadmill stress test. This will also provide additional evaluation with respect to concerns of her underlying cardiac ectopy or cardiac rhythm. [facility] 12-15-2024 Evaluation + Plan note Associated Problem(s): [...] therapy or possibly calcium channel antagonist therapy. [facility] 12-15-2024 History of Present illness Narrative Images from the original note were not included. Referring provider: Yasmine Beavers MD Primary care provider: No primary care provider on file. Dear Dr. Beavers, I had the pleasure of seeing your patient, Susana Mcclain, at the [facility] on 12/15/2024. I have reviewed pertinent outside [...] female who presents today for a new U cardiovascular visit based on concerns of palpitations. 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 She knows she intermittently has a [...] Resource Strain: Medium Risk (09/24/2020) Received from [facility] Overall Financial Resource Strain (CARDIA) Difficulty of Paying Living Expenses: Somewhat hard Food Insecurity: Food Insecurity Present (09/24/2020) Received from [facility] Hunger Vital Sign Worried About Running Out of Food in the Last Year: Often true Ran Out of Food in the Last Year: Patient declined Transportation Needs: No Transportation Needs (09/24/2020) Received from [facility] PRAPARE - Transportation Lack of Transportation (Medical): No Lack of Transportation (Non-Medical): No Physical Activity: Insufficiently Active (08/18/2020) Received from [facility] Exercise Vital Sign Days of Exercise per Week: 5 days Minutes of Exercise per Session: 10 min Stress: Stress Concern Present (04/23/2020) Received from [facility] of Occupational Health - Occupational Stress Questionnaire Feeling of Stress : Very much Social Connections: Unknown (08/18/2020) Received from [facility] Social Connection and Isolation Panel [NHANES] Frequency of Communication with Friends and Family: Not on file Frequency of Social Gatherings with Friends and Family: Patient declined Attends Orthodoxy Services: Not on file Active Member of Clubs or Organizations: Not on file Attends Club or Organization Meetings: Not on file Marital Status: Not on file Intimate Partner Violence: Not on file Housing Stability: High Risk (08/18/2020) Received from [facility] Housing Stability Vital Sign Unable to [...] Supplemental Information: ELECTROCARDIOGRAM 03/09/2023 EVENT MONITOR 10/21/2024 [facility] In summary, Ms. Mcclain is managed [...] all orders for this visit: Palpitations - NH ECG ROUTINE ECG W/LEAST 12 LDS W/I&R - ECG, TREADMILL STRESS (NON-IMAGING) Precordial chest pain - NH ECG ROUTINE ECG W/LEAST 12 LDS W/I&R - ECG, TREADMILL STRESS (NON-IMAGING) Shortness of breath - NH ECG ROUTINE ECG W/LEAST 12 LDS W/I&R [...] to contact me. Sincerely, Angel Harris MD, [facility] Hand Cloth Examiner - Clinical Division of Cardiovascular Medicine Department of Internal Medicine [facility] Please be aware that portions of this note may have been completed with a voice recognition software system and an artificial intelligence system with the knowledge and approval of the patient. Despite efforts to edit the note mis-transcribed words may still be present. 12 Lead EKG performed per provider's order, per policy, and given to Steven for interpretation. Medical family development extension specialist offered to patient prior to sensitive procedure and patient declined KATE documentation tool explained to patient. Patient accepted the use of KATE documentation tool during today's visit. documented in this encounter [facility] 01-22-2024 Miscellaneous Notes Patient notified her that her antibiotic was not effective did call doxycycline and patient will get that picked up and started right away. documented in this encounter [facility] 01-20-2024 Note HNO ID: [id number] Author: GLORIA BARRERA PA-C Service: ? Author Type: Physician Acetaldehyde Converter Operator Type: Progress Notes Filed: 01/20/2024 12:09 Note Text: This note was created using [employer]. Subjective Susana Mcclain is a 33 year old female. HPI Presents with a chief complaint of a possible infection in her right alvarez area. She had ACL reconstruction by [facility] on December 31. She states the [...] CULTURE WITH GRAM STAIN Gloria Barrera PA-C [facility] 01-20-2024 History of Present illness Narrative Images from the original note were not included. This note was created using [employer]. Subjective Susana Mcclain is a 33 year old female. HPI Presents with a chief complaint of a possible infection in her right alvarez area. She had ACL reconstruction by [facility] on December 31. She states the [...] Gloria Barrera PA-C documented in this encounter [facility] 09-15-2023 Note . MICRO - Microbiology PROCEDURE: [...] Locations *1: This test was performed at: [address], [facility] , [facility] ([place]) 03-05-2023 Miscellaneous Notes Patient has been identified [...] clearance submitted for follow up awaiting approval. Mary Glover LPN documented in this encounter [facility] 02-09-2023 Miscellaneous Notes Pt called and is [...] Antonio Costa APRN.CNP documented in this encounter [facility] 02-05-2023 Note HNO ID: [id number] Author: Deneen Rolon APRN.CNP Service: ? Author Type: Nurse Practitioner Type: Progress Notes Filed: 02/05/2023 10:42 AM Note Text: Patient did not log in for her virtual visit with the provider today. She did not answer her phone when she was contacted prior to the appointment time. [facility] 02-05-2023 History of Present illness Narrative Patient did not log in for her virtual visit with the provider today. She did not answer her phone when she was contacted prior to the appointment time. documented in this encounter [facility] 01-26-2023 Note HNO ID: [id number] Author: Marco Antonio Costa APRN.CNP Service: ? [...] right by her tailbone in ED at [facility] on 10/2022. Seems to come back intermittently, [...] improvement with omepraz (more content not included)... [facility] 01-26-2023 Instructions Marco Antonio Costa APRN.[place]ERSON - 01/26/2023 2:11 PM EST Schedule with general surgery. Have your labs drawn. Start the omeprazole and take daily to see if this may be heartburn giving you this feeling in your throat. documented in this encounter [facility] 01-26-2023 History of Present illness Narrative Chief Complaint Patient presents with: Pain, Back: Lower back, Abcess drained in Er - October 2022 HPI Susana Mcclain is a 32 year old female who presents here today for Above Complaints.. Today: Had abscess drained that was right by her tailbone in ED at [facility] on 10/2022. Seems to come back intermittently, [...] THYROID PEROXIDASE ANTIBODY BLOOD Marco Antonio Costa APRN.CNP documented in this encounter [facility] 12-18-2022 Instructions Deneen Rolon APRN.CNP - 12/18/2022 [...] - Call the National Suicide Hotline at 9-132-XCSSNFK ( ) or 8-475-651-TALK (2753) - Text 4HOPE to 502491 Medication Update: Seroquel 200 mg - take 1 tablet at bedtime. Gabapentin 300 mg - take 1 capsule three times a day. Utilize xanax only as needed for overwhelming episodes of anxiety and panic. Next appointment: --Schedule in 6 to 8 weeks or sooner if needed -- You may call the department appointment line at [phone] to schedule your appointment. -- Please call my nurse Mary at [phone] or send me a message in Posterous with any questions or concerns between appointments. 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 Interval Progress: Slightly improved Risks and benefits [...] which included preparing to see the patient, [id number] patient care, completing clinical documentation, and counseling and educating the patient/family/caregiver, ordering medications/labs. Deneen Rolon APRN.MECHANICAL MAINTENANCE WORKER December 18, 2022 9:30 AM This note was partially generated using Watchwith voice recognition system. Note was reviewed for accuracy. There may be minor misspellings or grammar miscues with Watchwith voice recognition. documented in this encounter [facility] 11-14-2022 Instructions Deneen Rolon APRN.CNP - 11/14/2022 [...] - Call the National Suicide Hotline at 5-460-ZCAAMHC ( ) or 5-732-191-TALK (0997) - Text 4HOPE to 072852 Medication Update: Stop Trazodone Seroquel 150 mg - take 1 tablet every night at bedtime. Gabapentin 100 mg - take 1 capsules three times daily. Utilize xanax only as needed for overwhelming episodes of anxiety. Next appointment: --Schedule in 4 weeks or sooner if needed -- You may call the department appointment line at [phone] to schedule your appointment. -- Please call my nurse Mary at [phone] or send me a message in Posterous with any questions or concerns between appointments. documented in this encounter [facility] 11-14-2022 History of Present illness Narrative Images [...] which included preparing to see the patient, [id number] patient care, completing clinical documentation, and counseling and educating the patient/family/caregiver, ordering medications/labs. Deneen Rolon APRN.CNP November 14, 2022 8:27 AM This note was partially generated using Watchwith voice recognition system. Note was reviewed for accuracy. There may be minor misspellings or grammar miscues with Dragon voice recognition. documented in this encounter [facility] 10-23-2022 Miscellaneous Notes Patient returned call. She is at [facility] ER at this time. Jasmina [...] to report that she was seen in [facility] today and is waiting on influenza/covid [...] Flor Padgett LPN documented in this encounter [facility] 10-23-2022 History of Present illness Narrative 10/23/2022 [...] Chani Vaughn PA-C documented in this encounter [facility] 10-23-2022 Miscellaneous Notes Triage protocol recommended: PCP [...] TRAVEL: no Protocols used: Cough - Acute [id number] documented in this encounter [facility] 10-13-2022 Instructions Deneen Rolon APRN.EMERSON - 10/13/2022 2:08 PM EST Liana Meza, It was good to meet and talk with you today. Below is a summary of the plan that we discussed during your appointment for reference. Of course, if you have any questions or concerns do not hesitate to reach out to me via a message or call. Best, Deneen Rolon APRN.MECHANICAL MAINTENANCE WORKER PLAN AND FOLLOW UP: YOU SHOULD SEEK [...] - Call the National Suicide Hotline at 4-293-OCLIPDV ( ) or 1-593-634-TALK (7547) - Text 8VTRT to 618626 Medication Update: - Stop Abilify - Seroquel (Quetiapine 50 mg) - take 1 tablet at bedtime. - Continue Trazodone and Xanax at the same dose. Next appointment: --Schedule in 4 weeks or sooner if needed -- You may call the department appointment line at [phone] to schedule your appointment. -- Please call my nurse Mary at [phone] or send me a message in Posterous with any questions or concerns between appointments. documented in this encounter [facility] 10-13-2022 History of Present illness Narrative Images [...] manipulation, and lying from . 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 She was admitted to [facility]. The psychiatrist diagnosed her with Bipolar [...] her that she was making it up. [place] that after that things were sweeped under the rug. -[place] that males in her family treated her [...] Therapist: Previously followed by a therapist at located [facility]. Current Structural Steel Detailer: No Last Hospitalization: Yes, [facility] [...] No history of use or dependence SPIRITUALITY: Mormon [facility]: Susana Mcclain was adopted. Does not have a relationship with her adopted siblings. The patient was born in [place] and raised in [facility]. She completed High school, Some college. [...] which included preparing to see the patient, [id number]-[id number] patient care, completing clinical documentation, obtaining and/or reviewing separately obtained history, counseling and educating the patient/family/caregiver, ordering medications, tests, or procedures, independently interpreting results (not separately reported), and communicating results to the patient/family/caregiver. ADD ON PSYCHOTHERAPY CODE : No SIGNATURE: Deneen Rolon APRN.CNP PATIENT NAME: Susana Mcclain DATE: October 13, 2022 TIME: 1:02 PM PAGER : documented in this encounter [facility] 09-29-2022 History of Present illness Narrative Patient [...] will take her. documented in this encounter [facility] 07-03-2022 Miscellaneous Notes Behavioral Health Social Work Progress Note Patient identified for [facility] from: PCP Reason for referral: Resources Behavioral Health Resources: Psychology - talk therapy;Psychiatry med management [facility] encounter type: Telephone Encounter Attempts to Outreach: 1 attempt Patient Discharged?: No Patient reported that caregiver was able to meet their needs today?: Yes Call placed to patient to discuss behavioral health needs. Pt looking for mental health treatment, psych and therapy. Advised will send list of providers in mychart. Pt to reach [facility] Prn. DORI Pritchard July 03, 2022 documented in this encounter [facility] 07-03-2022 History of Present illness Narrative Chief [...] [facility] ADULT Follow-up via Ante Upchart message in 1-2 weeks to let me know how you are doing. RTO as needed. Prescription instructions reviewed with patient as applicable. Potential red flag symptoms discussed with the patient. Reviewed appropriate action plan to take if red flag symptoms occur. Patient agreeable to treatment plan. Thuy Bonilla APRN.CNP [address] [place] [address] documented in this encounter [facility] 06-23-2022 Miscellaneous Notes Pt informed, verbalized understanding Marilin Garner Ma Yes, agree with ER evaluation. Marco Antonio Costa APRN.CNP Patient calling said she was in [facility] ER last Sunday with pulse rate of [...] chest tightness. She said she called her Bond Under[employer] office and not heard back from them. Advised to go to the ER for evaluation. documented in this encounter [facility] 06-19-2022 History of Present illness Narrative Radiology [...] 2022 3:36 PM documented in this encounter [facility] 06-14-2022 History of Present illness Narrative Radiology [...] Not applicable SIGNED BY: Zeny Mitchell RDMS Tana June 14, 2022 11:36 AM documented in this encounter [facility] 06-07-2022 Instructions Marco Antonio Costa APRN.CNP - 06/07/2022 11:33 AM EDT Hold your trazodone while using the Ambien. Let me know how you're doing with the Ambien. Restart you Abilify. Update me on this as well. Have your labs completed. Schedule your chest CT. Schedule your thyroid ultrasound. documented in this encounter [facility] 06-07-2022 History of Present illness Narrative Chief [...] diet of 1000 mg/day for under 50, 6050-6598 mg/day for 50+ - Smoking cessation encouraged; [...] - VITAMIN B12 BLOOD Marco Antonio Costa APRN.EMERSON documented in this encounter [facility] 05-31-2022 History of Present illness Narrative 32 year old female presents for abscess in rectum Patient is experiencing a pilonidal cyst, that is not treated here in the express care. Patient offered to schedule with surgery in morning, States she is in too much pain and uncomfortable Sent to ED documented in this encounter [facility] 05-31-2022 Miscellaneous Notes Noted. Agree with below. Thuy Bonilla APRN.MECHANICAL MAINTENANCE WORKER Patient calling with painful, draining sore on [...] States the area is painful Protocols used: [id number] documented in this encounter [facility] 03-18-2022 History of Present illness Narrative Visit Summary for Susana Mcclain - Gender: Female - Date of : 1990 Date: - Duration: 3 minutes Patient: Susana Mcclain Provider: Phillip Cleveland Patient Contact Information Address [address] [place], [place] [phone] Visit Topics I ve been sick for [...] any vulnerable family members in the home (infant, , weak immune system, lung disease, active [...] Adult Medicine.[Notification] Susana Mcclain is located in [place].[Notification] Susana Mcclain has shared health history... Diagnosis Acute sinusitis, unspecified Value: J01.90 Code: ICD-10-CM Diarrhea, unspecified Value: R19.7 Code: ICD-10-CM Nausea with vomiting, unspecified Value: R11.2 Code: ICD-10-CM Procedures Value: 80004 Code: CPT-4 OFFICE/OUTPATIENT VISIT EST Value: 11729 Code: CPT-4 OL DIG E/M SVC 11-20 [...] Phillip Cleveland( ) documented in this encounter [facility] 03-18-2022 Miscellaneous Notes Reason for Call: Patient [...] fever 7. RESPIRATORY STATUS: No wheezing 8. QSZRGS-SADD-AMRYX: Worse, nausea present now and also having chills 10. VACCINE: Yes, Pfizer 11. BOOSTER: Denies 12. : Denies 13. OTHER SYMPTOMS: Chills, fatigue, cough, congestion, runny nose, diarrhea and nausea 14. O2 SATURATION MONITOR: 98% on RA Patient was test for the flu and covid on 02/26 both were negative Protocols used: CORONAVIRUS (COVID-19) DIAGNOSED OR [id number] documented in this encounter [facility] 08-31-2014 History of Past i llness Narrative [...] of this encounter (statuses as of 03/18/2022) [facility] Narrative* Problem Noted [...] of this encounter (statuses as of 03/19/2022) [facility] Narrative* Problem Noted [...] of this encounter (statuses as of 05/31/2022) [facility] Narrative* Problem Noted [...] of this encounter (statuses as of 05/31/2022) [facility] Narrative* Problem Noted [...] of this encounter (statuses as of 06/07/2022) [facility] Narrative* Problem Noted [...] of this encounter (statuses as of 06/15/2022) [facility] Narrative* Problem Noted [...] of this encounter (statuses as of 06/20/2022) [facility] Narrative* Problem Noted [...] of this encounter (statuses as of 06/22/2022) [facility] Narrative* Problem Noted [...] 4 weeks - 03/21/13- T&S ordered - KK 02/27/2013Patient had anti-M. antibodies during her last 2 pregnancies. She denies any history of blood transfusions, IV drug use, share needles. Supervision of other high-risk (V23.89) 01/28/2010 03/21/2013 documented as of this encounter (statuses as of 06/22/2022) [facility] Narrative* Problem Noted [...] of this encounter (statuses as of 06/23/2022) [facility] Narrative* Problem Noted [...] of this encounter (statuses as of 07/03/2022) [facility] Narrative* Problem Noted [...] of this encounter (statuses as of 07/03/2022) [facility] Narrative* Problem Noted [...] of this encounter (statuses as of 09/29/2022) [facility] Narrative* Problem Noted [...] of this encounter (statuses as of 10/21/2022) [facility] Narrative* Problem Noted [...] of this encounter (statuses as of 10/23/2022) [facility] Narrative* Problem Noted [...] of this encounter (statuses as of 10/23/2022) [facility] Narrative* Problem Noted [...] of this encounter (statuses as of 11/19/2022) [facility] Narrative* Problem Noted [...] of this encounter (statuses as of 12/18/2022) [facility] Narrative* Problem Noted [...] of this encounter (statuses as of 01/26/2023) [facility] Narrative* Problem Noted [...] of this encounter (statuses as of 02/05/2023) [facility] Narrative* Problem Noted [...] of this encounter (statuses as of 02/09/2023) [facility] Narrative* Problem Noted [...] of this encounter (statuses as of 03/05/2023) [facility] Narrative* Problem Noted [...] of this encounter (statuses as of 01/20/2024) [facility] Narrative* Problem Noted [...] of this encounter (statuses as of 01/22/2024) [facility] note[facility] may be information available, but it has not been provided by the sender.[facility] Work Phone: Evaluation note* Diagnosis Pilonidal abscess of cleft- Primary Pilonidal cyst with abscess [facility] Diagnosis Well adult exam- Primary Routine [...] and immunity disorders [facility] Dysphagia, unspecified type Sensation of foreign body in throat Other symptoms involving head and neck [facility] Diagnosis Lung nodules Other nonspecific abnormal finding of lung field [facility] Diagnosis Bipolar disorder, in partial remission, most recent episode depressed (HCC)- Primary Bipolar I disorder, most recent episode (or current) depressed, in partial or unspecified remission Chronic insomnia Insomnia, unspecified ALFREDO (generalized anxiety disorder) Generalized anxiety disorder [facility] Diagnosis Urinary frequency- Primary SOB (shortness of breath) Shortness of breath [facility] Diagnosis Moderate mixed bipolar I disorder (HCC)- Primary Bipolar I disorder, most recent episode (or current) mixed, moderate History of posttraumatic stress disorder (PTSD) [facility] Diagnosis Acute cough- Primary Nasal congestion Other diseases of nasal cavity and sinuses [facility] Diagnosis Moderate mixed bipolar I disorder (HCC)- Primary Bipolar I disorder, most recent episode (or current) mixed, moderate Generalized anxiety disorder History of attention deficit hyperactivity disorder (ADHD) [facility]* Diagnosis Generalized anxiety disorder- Primary Bipolar 1 disorder, depressed, moderate (HCC) Bipolar I disorder, most recent episode (or current) depressed, moderate History of attention deficit hyperactivity disorder (ADHD) History of posttraumatic stress disorder (PTSD) [facility] Diagnosis Cyst near tailbone- [...] for thyroid disorder [facility] Diagnosis NO SHOW- Primary [facility]* Diagnosis Surgical wound infection- Primary Other postoperative infection [facility] Diagnosis Palpitations- Primary Precordial chest pain Precordial pain Shortness of breath Tobacco use Tobacco use disorder [facility] Instruction Description Start Date CompletedPatient advised to follow-up with Primary Care Physician for BMI management. [facility] Work Phone: Instructions* Instruction Description Start Date CompletedPatient advised to follow-up with Primary Care Physician for BMI management. [facility] Work Phone: Reason for referral (narrative)* Diagnostic Procedure Only (Routine) - Closed Specialty Diagnoses / Procedures Referred By Portia rivera Referred To Contact US IMAGING Diagnoses Dysphagia, unspecified type Sensation of foreign body in throat Procedures US THYROID/PARATHYROID US SOFT TISSUE HEAD & NECK REAL TIME IMGE DOCM Marco Antonio Costa APRN.MECHANICAL MAINTENANCE WORKER [address] [place] [address] Us Imaging Referral ID Status Reason Start Date Expiration Date V isits Requested Visits Authorized [id number] Closed Auto-Generate d Referral 06/07/2022 07/07/2023 1 1 [facility] Summary Purpose Family History No Family History [...] FoundDocuments on File Type Date Recorded Patient Experimental Preflight Mechanic Expl anation Advance Directive(s) 10/15/2018 11:01 AM Documents on File Type Date Recorded Patient Experimental Preflight Mechanic Expl anation Advance Directive(s) 10/15/2018 11:01 AM [...] TOMOGRAPHY THORAX W/O CNTRST Marco Antonio Costa APRN.MECHANICAL MAINTENANCE WORKER [address] [place] [address] Ct Imaging Referral ID Status Reason Start Date Expiration Date Visits Requested Visits Authorized [id number] Authorized Auto-Generat ed Referral 06/07/2022 11/18/2022 1 1 Specialty Diagnoses / Procedures Referred By Contac t Referred To Contact US IMAGING Diagnoses Dysphagia, unspecified type Sensation of foreign body in throat Procedures US THYROID/PARATHYROID US SOFT TISSUE HEAD & NECK REAL TIME IMGE DOCM Marco Antonio Costa, BODY FORMER.MECHANICAL MAINTENANCE WORKER [address] [place] [address] Us Imaging Referral ID Status Reason Start Date Expiration Date Visits Requested Visits Authorized [id number] Authorized Auto-Generat ed Referral 06/07/2022 07/07/2023 1 1 Referral ID Status Reason Start Date Expiration Date V isits Requested Visits Authorized [id number] Closed Auto-Generate d Referral 06/07/2022 11/18/2022 1 1 Specialty Diagnoses / Procedures Referred By Contac t Referred To Contact General Surgery Diagnoses Cyst near tailbone Well adult exam Myalgia Arthralgia, unspecified joint Procedures CONSULT TO GENERAL SURGERY OFFICE/OUTPATIENT NEW HIGH MDM 60-74 MINUTES Marco Antonio Costa, BODY FORMER.MECHANICAL MAINTENANCE WORKER [address] [place] [address] Referral ID Status Reason Start Date Expiration Date Visits Requested Visits Authorized [id number] Authorized PCP Requested Referral 01/26/2023 01/26/2024 1 1 Specialty Diagnoses / Procedures Referred By Contac t Referred To Contact Diagnoses Palpitations Precordial chest pain Shortness of breath Procedures ECG, TREADMILL STRESS (NON-IMAGING) NH CV STRS TST XERS&/OR RX CONT ECG W/SI&R Angel Harris MD [address] [place] [address] [address] [place] [address] Referral ID Status Reason Start Date Expiration Date V isits Requested Visits Authorized [id number] New Request 12/15/2024 01/09/2026 1 1 Additional Source Comments INFORMATION SOURCE (unrecogn ized section and content) DATE CREATED AUTHOR 08/29/2019 [facility] DATE CREATED AUTHOR AUTHOR'S ORGANIZ ATION 01/17/2024 [facility] ([place]) DATE CREATED AUTHOR AUTHOR'S ORGANIZ ATION 01/21/2024 [facility] DATE CREATED AUTHOR AUTHOR'S ORGANIZ ATION 04/24/2024 [facility] DATE CREATED AUTHOR AUTHOR'S ORGANIZ ATION 12/15/2024 [facility] DATE CREATED AUTHOR AUTHOR'S ORGANIZ ATION 05/22/2025 [facility] Reason for Visit (unrecogniz ed section [...] REAL TIME IMGE DOCM Marco Antonio Costa, BODY FORMER.MECHANICAL MAINTENANCE WORKER [address] [place] [address] Us Imaging Referral ID Status Reason Start Date Expiration Date V isits Requested Visits Authorized [id number] Closed Auto-Generate d Referral 06/07/2022 07/07/2023 [address] Specialty Diagnoses / Procedures Referred By Contac t Referred To Contact CT IMAGING Diagnoses Lung nodules Procedures CT CHEST WO IVCON DIAGNOSTIC COMPUTED TOMOGRAPHY THORAX W/O CNTRST Marco Antonio Costa, LUPE.MECHANICAL MAINTENANCE WORKER [address] [place] [address] Ct Imaging Referral ID Status Reason Start Date Expiration Date V isits Requested Visits Authorized [id number] Closed Auto-Generate d Referral 06/07/2022 11/18/2022 1 1 Reason Comments Opened In Error Reason Comments Patient Update Reason Comments Anxiety Depression Specialty Diagnoses / Procedures Referred By Contac t Referred To Contact Family Practice / FAMILY MEDICINE Diagnoses At risk for increased anxiety increased anxiety Procedures OFFICE/OUTPATIENT ESTABLISHED MOD MDM 30-39 MIN 4C EST Rober Saba L, DO [address] [place] [address] Thuy Bonilla APRN.MECHANICAL MAINTENANCE WORKER [address] [place] [address] Referral ID Status Reason Start Date Expiration Date V isits Requested Visits Authorized [id number] Authorized 07/03/2022 10/01/2022 10 10 Reason Comments [...] OUTSIDE ORDER PREFERS DR ANGEL HARRIS IN [place] PALPITATION Procedures [facility] Yasmine Beavers MD [address] [facility] [place] [address] Angel Harris MD [address] [facility] [address] [place] [address] Referral ID Status Reason Start Date Expiration Date V isits Requested Visits Authorized [id number] New Request 12/15/2024 01/09/2026 1 1 Source Comments (unrecognize d section and content) In the event this informatio n is protected by the Federal Confidentiality of Alcohol and Drug Abuse Patient Records regulations: The Federal rules restrict any use of the information to criminally investigate or prosecute any alcohol or drug abuse patient.[facility] the event this information is protected by the Federal Confidentiality of Alcohol and Drug Abuse Patient Records regulations: The Federal rules restrict any use of the information to criminally investigate or prosecute any alcohol or drug abuse patient.[facility] the event this information is protected by the Federal Confidentiality of Alcohol and Drug Abuse Patient Records regulations: The Federal rules restrict any use of the information to criminally investigate or prosecute any alcohol or drug abuse patient.[facility] the event this information is protected by the Federal Confidentiality of Alcohol and Drug Abuse Patient Records regulations: The Federal rules restrict any use of the information to criminally investigate or prosecute any alcohol or drug abuse patient.[facility] the event this information is protected by the Federal Confidentiality of Alcohol and Drug Abuse Patient Records regulations: The Federal rules restrict any use of the information to criminally investigate or prosecute any alcohol or drug abuse patient.[facility] the event this information is protected by the Federal Confidentiality of Alcohol and Drug Abuse Patient Records regulations: The Federal rules restrict any use of the information to criminally investigate or prosecute any alcohol or drug abuse patient.[facility] the event this information is protected by the Federal Confidentiality of Alcohol and Drug Abuse Patient Records regulations: The Federal rules restrict any use of the information to criminally investigate or prosecute any alcohol or drug abuse patient.[facility] the event this information is protected by the Federal Confidentiality of Alcohol and Drug Abuse Patient Records regulations: The Federal rules restrict any use of the information to criminally investigate or prosecute any alcohol or drug abuse patient.[facility] the event this information is protected by the Federal Confidentiality of Alcohol and Drug Abuse Patient Records regulations: The Federal rules restrict any use of the information to criminally investigate or prosecute any alcohol or drug abuse patient.[facility] the event this information is protected by the Federal Confidentiality of Alcohol and Drug Abuse Patient Records regulations: The Federal rules restrict any use of the information to criminally investigate or prosecute any alcohol or drug abuse patient.[facility] the event this information is protected by the Federal Confidentiality of Alcohol and Drug Abuse Patient Records regulations: The Federal rules restrict any use of the information to criminally investigate or prosecute any alcohol or drug abuse patient.[facility] System[facility] the event this information is protected by the Federal Confidentiality of Alcohol and Drug Abuse Patient Records regulations: The Federal rules restrict any use of the information to criminally investigate or prosecute any alcohol or drug abuse patient.[facility] the event this information is protected by the Federal Confidentiality of Alcohol and Drug Abuse Patient Records regulations: The Federal rules restrict any use of the information to criminally investigate or prosecute any alcohol or drug abuse patient.[facility] the event this information is protected by the Federal Confidentiality of Alcohol and Drug Abuse Patient Records regulations: The Federal rules restrict any use of the information to criminally investigate or prosecute any alcohol or drug abuse patient.[facility] the event this information is protected by the Federal Confidentiality of Alcohol and Drug Abuse Patient Records regulations: The Federal rules restrict any use of the information to criminally investigate or prosecute any alcohol or drug abuse patient.[facility] SystemIn the event this information is protected by the Federal Confidentiality of Alcohol and Drug Abuse Patient Records regulations: The Federal rules restrict any use of the information to criminally investigate or prosecute any alcohol or drug abuse patient.[facility] SystemIn the event this information is protected by the Federal Confidentiality of Alcohol and Drug Abuse Patient Records regulations: The Federal rules restrict any use of the information to criminally investigate or prosecute any alcohol or drug abuse patient.[facility] SystemIn the event this information is protected by the Federal Confidentiality of Alcohol and Drug Abuse Patient Records regulations: The Federal rules restrict any use of the information to criminally investigate or prosecute any alcohol or drug abuse patient.[facility] SystemIn the event this information is protected by the Federal Confidentiality of Alcohol and Drug Abuse Patient Records regulations: The Federal rules restrict any use of the information to criminally investigate or prosecute any alcohol or drug abuse patient.[facility] SystemIn the event this information is protected by the Federal Confidentiality of Alcohol and Drug Abuse Patient Records regulations: The Federal rules restrict any use of the information to criminally investigate or prosecute any alcohol or drug abuse patient.[facility] SystemIn the event this information is protected by the Federal Confidentiality of Alcohol and Drug Abuse Patient Records regulations: The Federal rules restrict any use of the information to criminally investigate or prosecute any alcohol or drug abuse patient.[facility] SystemIn the event this information is protected by the Federal Confidentiality of Alcohol and Drug Abuse Patient Records regulations: The Federal rules restrict any use of the information to criminally investigate or prosecute any alcohol or drug abuse patient.[facility] SystemIn the event this information is protected by the Federal Confidentiality of Alcohol and Drug Abuse Patient Records regulations: The Federal rules restrict any use of the information to criminally investigate or prosecute any alcohol or drug abuse patient.[facility] SystemIn the event this information is protected by the Federal Confidentiality of Alcohol and Drug Abuse Patient Records regulations: The Federal rules restrict any use of the information to criminally investigate or prosecute any alcohol or drug abuse patient.[facility] SystemIn the event this information is protected by the Federal Confidentiality of Alcohol and Drug Abuse Patient Records regulations: The Federal rules restrict any use of the information to criminally investigate or prosecute any alcohol or drug abuse patient.[facility] Care Teams (unrecognized sec tion and content) Lead Technician Relationship Specialty Start Date End Date Rober Saba, DO [address] [place] [address] PCP - General Family Practice 10/28/14 Lead Technician Relationship Specialty Start Date End Date Rober Saab, DO [address] [place] [address] PCP - General Family Practice 10/28/14 Lead Technician Relationship Specialty Start Date End Date Rober Saba, DO [address] [place] [address] PCP - General Family Practice 10/28/14 Lead Technician Relationship Specialty Start Date End Date Rober Saba DO [address] [place] [address] PCP - General Family Practice 10/28/14 Lead Technician Relationship Specialty Start Date End Date Rober Saba, DO [address] [place] [address] PCP - General Family Practice 10/28/14 Lead Technician Relationship Specialty Start Date End Date Rober Saba, DO [address] [place] [address] PCP - General Family Practice 10/28/14 Lead Technician Relationship Specialty Start Date End Date Rober Saba, DO [address] [place] [address] PCP - General Family Practice 10/28/14 Lead Technician Relationship Specialty Start Date End Date Rober Saba, DO [address] [place] [address] PCP - General Family Practice 10/28/14 Lead Technician Relationship Specialty Start Date End Date Rober Saba, DO [address] [place] [address] PCP - General Family Practice 10/28/14 Lead Technician Relationship Specialty Start Date End Date Rober Saba, DO [address] [place] [address] PCP - General Family Practice 10/28/14 Lead Technician Relationship Specialty Start Date End Date Rober Saba, DO [address] [place] [address] PCP - General Family Practice 10/28/14 Lead Technician Relationship Specialty Start Date End Date Rober Saba, DO [address] [place] [address] PCP - General Family Medicine 10/28/14 Lead Technician Relationship Specialty Start Date End Date Rober Saba, DO [address] [place] [address] PCP - General Family Medicine 10/28/14 Lead Technician Relationship Specialty Start Date End Date Rober Saba, DO [address] [place] [address] PCP - General Family Medicine 10/28/14 Lead Technician Relationship Specialty Start Date End Date Rober Saba, DO [address] [place] [address] PCP - General Family Medicine 10/28/14 Lead Technician Relationship Specialty Start Date End Date Rober Saba, DO [address] [place] [address] PCP - General Family Medicine 10/28/14 Lead Technician Relationship Specialty Start Date End Date Rober Saba, DO [address] [facility] [place] [address] PCP - General Family Medicine 10/28/14 Lead Technician Relationship Specialty Start Date End Date Rober Saba, DO [address] [place] [address] PCP - General Family Medicine 10/28/14 Lead Technician Relationship Specialty Start Date End Date Rober Saba, DO [address] [place] [address] PCP - General Family Medicine 10/28/14 Lead Technician Relationship Specialty Start Date End Date Rober Saba, DO [address] [place] [address] PCP - General Family Medicine 10/28/14 Lead Technician Relationship Specialty Start Date End Date Rober Saba DO [address] [place] [address] PCP - General Family Medicine 10/28/14 Lead Technician Relationship Specialty Start Date End Date Rober Saba DO [address] [place] [address] PCP - General Family Medicine 10/28/14 FOR [...] BE BASED ON THE PRIMARY CLINICAL RECORDS. [facility]. provides no warranty or guarantee of the accuracy or completeness of information in this document.
--- OUTSIDE RECORDS SUMMARY | 2025-06-02 05:35 | XMS RPT_ITS | CCD ---
Author Organization [facility] Informat ion Partnership OCEANOGRAPHY PROFESSOR [facility] Care Team Providers Care Revenue Cycle Analyst Name Role Phone Miguel TAVAREZ, Andry Bass Unavailable Nabil Wang PA-C Unavailable Rober Saba DO Primary Care Provider Rober Saba DO Primary Care Provider Rober Saba DO Primary Care Provider Rober Saba DO Primary Care Provider MAST CAGER OPERATOR-DESIGN PAINTER, FLOR Attending Unavailabl e MAST CAGER OPERATOR-DESIGN PAINTER, FLOR Primary Care Unavailabl e MAST CAGER OPERATOR-DESIGN PAINTER, FLOR Attending Unavailabl e MAST CAGER OPERATOR-DESIGN PAINTER, FLOR Primary Care Unavailabl e ROBER SABA [...] Unavailable Schinner, Yasmine E Referring Unavailable Bud PICC NURSE, Irene Attending Unavailable Schinner, Yasmine E Primary [...] Primary Care Unavailable Zoe Duran Referring Unavailable ReneeZoe Attending Unavailable Schinner, Yasmine E Attending Unavailable [...] (2 sources) Azithromycin Drug Allergy 1 rash [facility] Work Phone: (2 sources) RED DYE 40 drug allergy 1 [facility] Work Phone: (20 sources) Azithromycin; Translations: [AZITHROMYCIN] Drug Allergy 9 Rash [facility] (3 sources) Amoxicillin Drug Allergy 4 Vomiting, Nausea and Vomiting [facility] (1 source) Amoxicillin Drug Allergy [facility] Repository (1 source) Azithromycin Drug Allergy [facility] Repository (1 source) Amoxicillin Drug Allergy 4 [facility] (1 source) Azithromycin Drug Allergy 4 [facility] (1 source) Contrast media Drug allergy (disorder) 4 [facility] Repository Medications Current Medications Medication [...] on above: Take 1 capsule by mo [facility] four times daily for 7 days. [...] tablet by mouth every twelve hours naproxen [id number] Nabil Wang PA-C Completed/Discontinued Medications Medication Drug [...] Take as needed for muscle spasm baclofen [id number] Nabil Wang PA-C cholecalciferol 0.125 mg oral capsule (13 sources) Vitamin D Start: 06-16-2022 End: 12-18-2022 take 1 capsule by mouth once daily Cholecalciferol, Vitamin D3, 125 mcg (5,000 unit) cap Indications: Vitamin D deficiency Take 1 capsule by mouth once daily. 90 capsule 3 06/16/2022 12/18/2022 Discontinued (Discontinued by Patient) Comment on above: Take 1 capsule by mo [facility] once daily. gabapentin 300 mg oral capsule [...] Comment on above: Take 1 capsule by [facility] three times daily for 30 days. ibuprofen [...] to 2 tablets as needed. ondansetron hcl [id number] Nabil Wang PA-C QUEtiapine 200 mg oral [...] 50mg, max dose 300mg for >65y/o tramadol [id number] Andry Rivera MD traZODone hydrochloride 100 mg [...] V ZOSTER IgG Reactive Normal Non Reactive [facility] Comment on above: Order Comment: [...] acquired. Performed By: #### L 509.4006, L3400.0005 ####[facility] [address] [place], [place], [address] Mumps Antibody,IgGon 025 MUMPS Ab, IgG 210.0 AU/mL Normal Immune >10.9 [facility] Comment on above: Order Comment: Order Date: 05/19/25 Order Info: [id number] - RUBEOG Order Info: [id number] - MUG Result Comment: Nega tive <9.0 Equivocal 9.0 - 10.9 Positive >10.9 A positive result generally indicates past exposure to Mumps virus or previous vaccination. Performed By: #### L 3400.1750, L3100.3300 #### [facility] Laboratory [address] [place], [place], [address] Rubeola IgG Abon 05-22-2025 RUBEOLA Ab, IgG > 300.0 High Immune >16.4 [facility] Comment on above: Order Comment: Order Date: 05/19/25 Order Info: [id number] - RUBEOG Order Info: [id number] - MUG Result Comment: Clie nt Requested Flag Negative <13.5 Equivocal 13.5 - 16.4 Positive >16.4 Presence of antibodies to Rubeola is presumptive evidence of immunity except when acute infection is suspected. Performed at: [address] [id number] Supervisor Education: Steven Bruner PhD, Phone: [phone] Performed By: #### L 3400.1750, L3100.3300 #### [facility] Laboratory [address] [place], [place], [address] [id number] 05-20-2025 ANTIBODY ID M Normal [facility] Comment on above: Order Comment: Surge ry Date: 06/02/25 07:30 Operating Room 6HSUSANA HOOD [id number] [facility] 35/F 89 Hysterectomy,Vaginal Poss LAVH,Bilateral Salpingectomy (Bilateral) S.Jam for Laboratory Test PREOPPROTOCOL UNITS ORDERED DUE TO ALLOANTIBODY(S).[id number] RADHA Performed By: #### B TSPAT, [facility], [id number], L501.5200 ####[facility] [address] [place], [address] BRCon 05-20-2025 RC Normal [facility] Comment on above: Result Comment: [id number] OP RC READY [id number] OP RC READY Performed By: #### B TSPAT, [facility], [id number], L501.5200 ####[facility] [address] [place], [address] L509.4006on 05-20-2025 Rubella IgG REAC Normal Nonreactive [facility] Comment on above: Result Comment: Anti body Result: Interpretation Non-Reactive: Non-Immune Reactive: Immune The following results were obtained with the [employer] Rubella IgG assay. Results from assays of other manufacturers cannot be used interchangeably. Performed By: #### L 509.4006, L3400.0005 #### [facility] Laboratory [address] [place], [address] MR/PATEugenio 05-20-2025 MR/PAT.[facility] Medical Records Department [address] [place] [address] PAT - Anesthesia 05/20/25 191 MR#: [id number] Acct: [id number] Name: SUSANA MCCLAIN Rep #: [id number] : 1990 35 From: Humberto Bell MD PCP: Dr. Yasmine Beavers MD Status:PRE SDC Y Race: C Location: [facility] Pre-Assessment Diagnosis/Proposed Procedure Planned Operative Procedure(s): (B) Hysterectomy,Vaginal Poss LAVH, Bilateral Salpingectomy Anesthesia History Anesthesia History - container coordinator: Anesthesia History - container coordinator Hx Hospitalization No 05/19/25 08:48 Any Problems [...] take am of surgery PONV PONV - container coordinator: PONV - container coordinator Female Yes 05/19/25 08:48 HX of Motion [...] 11/07/24 16:04 Respiratory Assessment Respiratory Assessment - container coordinator: Respiratory Tract Infection Hx - container coordinator Hx Respiratory Tract Infection No 05/19/25 08:48 STOP Sleep Apnea STOP Sleep Apnea - container coordinator: STOP Sleep Apnea - container coordinator Hx Hypertension No 05/19/25 08:48 Hx Sleep [...] Tobacco Use History Tobacco Use History - container coordinator: Tobacco Use History - container coordinator Tobacco Use Smoking Status Current every day smoker 05/19/25 08:48 Hx Tobacco Use Yes 05/19/25 08:48 Years Smoking Packs Smoked per Day Smoking Cessation Date was within the last 15 years Hx Smoking Cessation Date Hx Smoking Cessation Counseling Hematologic Medial History Hematologic Hx - container coordinator: 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 Specify any problems Hx of Preganancy in last 3 No 05/19/25 08:48 Months Nurse Filling Out Transfusion [facility] 05/19/25 08:48 Questions: Date: 05/19/25 05/19/25 08:48 Time: 08:56 05/19/25 08:48 Patient unable to answer at this time (ie. confused, unrespo /Reproducti on History /Reproducti ve History - container coordinator: /Reproducti ve Hx- container coordinator Hx Now No 05/19/25 08:48 Gestational Age (in weeks): EDC: Hx Hx Para Hx Section SAB No 05/19/25 08:48 [facility] Medical History (Updated 05/19/25 @ 08:54 [...] azithromycin (F (more content not included)... Normal [facility] Magnesiumon 05-20-2025 Magnesium [Mass/Vol] 2.3 mg/dL High 1.5-2.2 [facility] Comment on above: Performed By: #### B TSPAT, BR, [id number], L501.5200 ####[facility] [address] [place], [place], [address] Type AND Screen - PAT ONLYon 05-20-2025 Ab SCREEN GEL Positive Normal [facility] Comment on above: Order Comment: Surge ry Date: 06/02/25Reason for Laboratory Test [id number] Performed By: #### B TSPAT, BR, [id number], L501.5200 ####[facility] [address] [place], [place], [address] MR/PAT.ANEon 05-19-2025 MR/PAT.[facility] Medical Records Department [address] [place] [address] PAT - Anesthesia 05/19/25 1839 MR#: [id number] Acct: [id number] Name: SUSANA MCCLAIN Rep #: [id number] : 1990 35 From: Davi Palmer MD PCP: Dr. Yasmine Beavers MD Status:PRE [facility] Y Race: C Location: [facility] Pre-Assessment Diagnosis/Proposed Procedure Planned Operative Procedure(s): (B) Hysterectomy,Vaginal Poss LAVH, Bilateral Salpingectomy Anesthesia History Anesthesia History - container coordinator: Anesthesia History - container coordinator Hx Hospitalization No 05/19/25 08:48 Any Problems [...] take am of surgery PONV PONV - container coordinator: PONV - container coordinator Female Yes 05/19/25 08:48 HX of Motion [...] 11/07/24 16:04 Respiratory Assessment Respiratory Assessment - container coordinator: Respiratory Tract Infection Hx - container coordinator Hx Respiratory Tract Infection No 05/19/25 08:48 STOP Sleep Apnea STOP Sleep Apnea - container coordinator: STOP Sleep Apnea - container coordinator Hx Hypertension No 05/19/25 08:48 Hx Sleep [...] Tobacco Use History Tobacco Use History - container coordinator: Tobacco Use History - container coordinator Tobacco Use Smoking Status Current every day smoker 05/19/25 08:48 Hx Tobacco Use Yes 05/19/25 08:48 Years Smoking Packs Smoked per Day Smoking Cessation Date was within the last 15 years Hx Smoking Cessation Date Hx Smoking Cessation Counseling Hematologic Medial History Hematologic Hx - container coordinator: 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 Normal [facility] PROLACTIN 4465on 05-19-2025 PROLACTIN 18.4 ng/mL Normal 4.8-33.4 [facility] Comment on above: Result Comment: Perf ormed at: CB - [facility] [address] [id number] Supervisor Education: Steven Bruner PhD, Phone: [phone] Performed By: #### L 3378.4467 #### [facility] [place], [address] Home Care Aide Office Visit Reporton 05-18-2025 Home Care Aide Office Visit Report [facility] [address], [address] [place] [address] OFFICE VISIT Date of Service: 05/18/25 MR#: [id number] Acct: [id number] Name: SUSANA MCCLAIN Rep #: [id number] : 1990 Provider: Dr. Tracey willis MD Age/Sex: 35/F Location: [facility] Status: Signed Intake Vital Signs 11/07/24 16:04 05/18/25 08:23 Height 5 ft 9 in 5 ft 9 in Weight: 193 lb 6 oz BMI 28.5 BP 144/83 H Intake Visit Reasons: TVH BS possible LAVH Taxi Servicer Required: No Is patient in pain?: No [...] Endo: De (more content not included)... Normal [facility] ANTINUCLEAR ANTIBODIES DIREC Ton 05-07-2025 MARY,DIRECT Negative Normal Negative [facility] Comment on above: Order Comment: Order Date: 05/05/25Order Info: [id number] - MARY Result Comment: Perf ormed at: [address] [id number] Supervisor Education: Steven Bruner PhD, Phone: [phone] Performed By: #### L 505.7010, L100.0100, L7000.5300, L500.4050, L101.9900, L3100.5475 ####[facility] [address] [place], [address] Lyme Screen W/Reflex WBon LYME SCREEN Ab Negative Normal Negative [facility] Comment on above: Order Comment: [...] to 14 days is recommended. Performed at: [address] [id number] Supervisor Education: Steven Bruner PhD, Phone: [phone] Performed By: #### L 505.7010, L100.0100, L7000.5300, L500.4050, L101.9900, L3100.5475 ####[facility] [address] [place], [place], [id number] CBC W/Diff, Automatedon 04-19 Absolute Lymph 3.75 X10 3/uL Normal 0.83-4.51 [facility] Comment on above: Order Comment: Order Date: 05/05/25Order Info: [id number] - CBCDOrder Info: [id number] - SED Performed By: #### L 505.7010, L100.0100, L7000.5300, L500.4050, L101.9900, L3100.5475 ####[facility] [address] [place], [address] Absolute Neut 8.1 X10 3/uL High 2.0-7.7 [facility] Comment on above: Order Comment: Order Date: 05/05/25Order Info: 0184- - CBCDOrder Info: [id number] - SED Performed By: #### L 505.7010, L100.0100, L7000.5300, L500.4050, L101.9900, L3100.5475 ####[facility] [address] [place], [address] Basophils/100 WBC (Bld) 0.5 % Normal 0-1 [facility] Comment on above: Order Comment: Order Date: 05/05/25Order Info: [id number] - CBCDOrder Info: [id number] - SED Performed By: #### L 505.7010, L100.0100, L7000.5300, L500.4050, L101.9900, L3100.5475 ####[facility] [address] [place], [address] Eosinophils/100 WBC (Bld) 1.5 % Normal 0-5 [facility] Comment on above: Order Comment: Order Date: 05/05/25Order Info: 0184- - CBCDOrder Info: [id number] - SED Performed By: #### L 505.7010, L100.0100, L7000.5300, L500.4050, L101.9900, L3100.5475 ####[facility] [address] [place], [address] Erythrocyte distribution width (RBC) [Ratio] 12.9 % Normal 11.6-14.6 [facility] Comment on above: Order Comment: Order Date: 05/05/25Order Info: 0184- - CBCDOrder Info: [id number] - SED Performed By: #### L 505.7010, L100.0100, L7000.5300, L500.4050, L101.9900, L3100.5475 ####[facility] [address] [place], [address] Hematocrit (Bld) [Volume fraction] 37.5 % Normal 37-47 [facility] Comment on above: Order Comment: Order Date: 05/05/25Order Info: 0184-1 - CBCDOrder Info: [id number] - SED Performed By: #### L 505.7010, L100.0100, L7000.5300, L500.4050, L101.9900, L3100.5475 ####[facility] [address] [place], [address] Hemoglobin (Bld) [Mass/Vol] 12.8 g/dL Normal 12.0-15.0 [facility] Comment on above: Order Comment: Order Date: 05/05/25Order Info: 0184-1 - CBCDOrder Info: [id number] - SED Performed By: #### L 505.7010, L100.0100, L7000.5300, L500.4050, L101.9900, L3100.5475 ####[facility] [address] [place], [address] IG% 0.200 Normal 0.0-0.9 [facility] Comment on above: Order Comment: Order Date: 05/05/25Order Info: 0184-1 - CBCDOrder Info: [id number] - SED Result Comment: IG% - Immature Granulocytes (promyelocytes, myelocytes and metamyelocytes) > 1% indicates that a LEFT SHIFT is Present. Performed By: #### L 505.7010, L100.0100, L7000.5300, L500.4050, L101.9900, L3100.5475 ####[facility] [address] [place], [address] Lymphocytes/100 WBC (Bld) 28.8 % Normal 19-41 [facility] Comment on above: Order Comment: Order Date: 05/05/25Order Info: 018- - CBCDOrder Info: [id number] - SED Performed By: #### L 505.7010, L100.0100, L7000.5300, L500.4050, L101.9900, L3100.5475 ####[facility] [address] [place], [address] MCH (RBC) [Entitic mass] 28.6 pg Normal 27.0-32.0 [facility] Comment on above: Order Comment: Order Date: 05/05/25Order Info: 183-1 - CBCDOrder Info: [id number] - SED Performed By: #### L 505.7010, L100.0100, L7000.5300, L500.4050, L101.9900, L3100.5475 ####[facility] [address] [place], [address] MCHC (RBC) [Mass/Vol] 34.1 g/dL Normal 32-36 [facility] Comment on above: Order Comment: Order Date: 05/05/25Order Info: 018- - CBCDOrder Info: [id number] - SED Performed By: #### L 505.7010, L100.0100, L7000.5300, L500.4050, L101.9900, L3100.5475 ####[facility] [address] [place], [address] MCV (RBC) [Entitic vol] 83.9 fL Normal 81-99 [facility] Comment on above: Order Comment: Order Date: 05/05/25Order Info: 018- - CBCDOrder Info: [id number] - SED Performed By: #### L 505.7010, L100.0100, L7000.5300, L500.4050, L101.9900, L3100.5475 ####[facility] [address] [place], [address] Monocytes/100 WBC (Bld) 6.4 % Normal 0-10 [facility] Comment on above: Order Comment: Order Date: 05/05/25Order Info: 0184- - CBCDOrder Info: [id number] - SED Performed By: #### L 505.7010, L100.0100, L7000.5300, L500.4050, L101.9900, L3100.5475 ####[facility] [address] [place], [address] Neutrophils/100 WBC (Bld) 62.6 % Normal 47-70 [facility] Comment on above: Order Comment: Order Date: 05/05/25Order Info: 0184- - CBCDOrder Info: [id number] - SED Performed By: #### L 505.7010, L100.0100, L7000.5300, L500.4050, L101.9900, L3100.5475 ####[facility] [address] [place], [address] Nucleated RBC (Bld) [#/Vol] 0 10*3/uL Normal 0-5 [facility] Comment on above: Order Comment: Order Date: 05/05/25Order Info: 0184-1 - CBCDOrder Info: [id number] - SED Performed By: #### L 505.7010, L100.0100, L7000.5300, L500.4050, L101.9900, L3100.5475 ####[facility] [address] [place], [address] Platelet mean volume (Bld) [Entitic vol] 10.4 fL Normal 6.2-12.0 [facility] Comment on above: Order Comment: Order Date: 05/05/25Order Info: 0184-1 - CBCDOrder Info: [id number] - SED Performed By: #### L 505.7010, L100.0100, L7000.5300, L500.4050, L101.9900, L3100.5475 ####[facility] [address] [place], [address] Platelets (Bld) [#/Vol] 276 10*3/uL Normal 150-450 [facility] Comment on above: Order Comment: Order Date: 05/05/25Order Info: 0184- - CBCDOrder Info: [id number] - SED Performed By: #### L 505.7010, L100.0100, L7000.5300, L500.4050, L101.9900, L3100.5475 ####[facility] [address] [place], [address] RBC (Bld) [#/Vol] 4.47 10*6/uL Normal 4.2-5.4 [facility] Comment on above: Order Comment: Order Date: 05/05/25Order Info: 018- - CBCDOrder Info: [id number] - SED Performed By: #### L 505.7010, L100.0100, L7000.5300, L500.4050, L101.9900, L3100.5475 ####[facility] [address] [place], [address] RDW SD 39.7 fl Normal 35.1-43.9 [facility] Comment on above: Order Comment: Order Date: 05/05/25Order Info: 0184- - CBCDOrder Info: [id number] - SED Performed By: #### L 505.7010, L100.0100, L7000.5300, L500.4050, L101.9900, L3100.5475 ####[facility] [address] [place], [address] WBC (Bld) [#/Vol] 13.0 10*3/uL High 4.4-11.0 [facility] Comment on above: Order Comment: Order Date: 05/05/25Order Info: 0184-1 - CBCDOrder Info: [id number] - SED Performed By: #### L 505.7010, L100.0100, L7000.5300, L500.4050, L101.9900, L3100.5475 ####[facility] [address] [place], [address] Comprehensive Metabolic Prof ilon 05-05-2025 Albumin [Mass/Vol] 4.2 g/dL Normal 3.5-5.0 [facility] Comment on above: Order Comment: Order Date: 05/05/25Order Info: 0786-1 - CMPOrder Info: [id number] - RA Performed By: #### L 505.7010, L100.0100, L7000.5300, L500.4050, L101.9900, L3100.5475 ####[facility] [address] [place], [address] Albumin/Globulin [Mass ratio] 1.4 {ratio} Normal 0.9-2.4 [facility] Comment on above: Order Comment: Order Date: 05/05/25Order Info: 0786-1 - CMPOrder Info: [id number] - RA Performed By: #### L 505.7010, L100.0100, L7000.5300, L500.4050, L101.9900, L3100.5475 ####[facility] [address] [place], [address] ALK PHOS 51 U/L Normal 35-104 [facility] Comment on above: Order Comment: Order Date: 05/05/25Order Info: 0786-1 - CMPOrder Info: [id number] - RA Performed By: #### L 505.7010, L100.0100, L7000.5300, L500.4050, L101.9900, L3100.5475 ####[facility] [address] [place], [address] ALT [Catalytic activity/Vol] 13 U/L Normal <=34 [facility] Comment on above: Order Comment: Order Date: 05/05/25Order Info: 0786-1 - CMPOrder Info: [id number] - RA Performed By: #### L 505.7010, L100.0100, L7000.5300, L500.4050, L101.9900, L3100.5475 ####[facility] [address] [place], [address] AST [Catalytic activity/Vol] 20 U/L Normal <=31 [facility] Comment on above: Order Comment: Order Date: 05/05/25Order Info: 0786-1 - CMPOrder Info: [id number] - RA Performed By: #### L 505.7010, L100.0100, L7000.5300, L500.4050, L101.9900, L3100.5475 ####[facility] [address] [place], [address] Bilirubin [Mass/Vol] 0.28 mg/dL Normal 0.00-1.30 [facility] Comment on above: Order Comment: Order Date: 05/05/25Order Info: 0786-1 - CMPOrder Info: [id number] - RA Performed By: #### L 505.7010, L100.0100, L7000.5300, L500.4050, L101.9900, L3100.5475 ####[facility] [address] [place], [address] BUN/CRE 8.5 RATIO Low 10-20 [facility] Comment on above: Order Comment: Order Date: 05/05/25Order Info: 0786-1 - CMPOrder Info: [id number] - RA Performed By: #### L 505.7010, L100.0100, L7000.5300, L500.4050, L101.9900, L3100.5475 ####[facility] [address] [place], [address] Calcium [Mass/Vol] 8.9 mg/dL Normal 7.6-11.0 [facility] Comment on above: Order Comment: Order Date: 05/05/25Order Info: 0786-1 - CMPOrder Info: [id number] - RA Performed By: #### L 505.7010, L100.0100, L7000.5300, L500.4050, L101.9900, L3100.5475 ####[facility] [address] [place], [address] Chloride [Moles/Vol] 103 mmol/L Normal 98-108 [facility] Comment on above: Order Comment: Order Date: 05/05/25Order Info: 0786-1 - CMPOrder Info: [id number] - RA Performed By: #### L 505.7010, L100.0100, L7000.5300, L500.4050, L101.9900, L3100.5475 ####[facility] [address] [place], [place], [address] CO2 [Moles/Vol] 23.0 mmol/L Normal 21.0-32.0 [facility] [facility] Comment on above: Order Comment: Order Date: 05/05/25Order Info: 0786-1 - CMPOrder Info: [id number] - RA Performed By: #### L 505.7010, L100.0100, L7000.5300, L500.4050, L101.9900, L3100.5475 ####[facility] [address] [place], [address] Creatinine [Mass/Vol] 0.86 mg/dL Normal 0.70-1.20 [facility] Comment on above: Order Comment: Order Date: 05/05/25Order Info: 0786-1 - CMPOrder Info: [id number] - RA Performed By: #### L 505.7010, L100.0100, L7000.5300, L500.4050, L101.9900, L3100.5475 ####[facility] [address] [place], [address] GAP 11 Normal 5-15 [facility] Comment on above: Order Comment: Order Date: 05/05/25Order Info: 0786-1 - CMPOrder Info: [id number] - RA Performed By: #### L 505.7010, L100.0100, L7000.5300, L500.4050, L101.9900, L3100.5475 ####[facility] [address] [place], [address] GFR/1.73 sq M.predicted among non-blacks MDRD (S/P/Bld) [Vol rate/Area] 91 mL/min/{1.73_m2} Normal >60 [facility] Comment on above: Order Comment: Order Date: 05/05/25Order Info: 0786-1 - CMPOrder Info: 25414-1 - RA Result Comment: mL/m in/1.73m2 CKD-EPI Creatinine Equation (2020) Performed By: #### L 505.7010, L100.0100, L7000.5300, L500.4050, L101.9900, L3100.5475 ####[facility] [address] [place], [address] Globulin (S) [Mass/Vol] 3.0 g/dL Normal 2.2-4.2 [facility] Comment on above: Order Comment: Order Date: 05/05/25Order Info: 0786-1 - CMPOrder Info: [id number] - RA Performed By: #### L 505.7010, L100.0100, L7000.5300, L500.4050, L101.9900, L3100.5475 ####[facility] [address] [place], [address] Glucose [Mass/Vol] 90 mg/dL Normal 70-99 [facility] Comment on above: Order Comment: Order Date: 05/05/25Order Info: 0786-1 - CMPOrder Info: [id number] - RA Performed By: #### L 505.7010, L100.0100, L7000.5300, L500.4050, L101.9900, L3100.5475 ####[facility] [address] [place], [address] Potassium [Moles/Vol] 3.6 mmol/L Normal 3.3-5.1 [facility] Comment on above: Order Comment: Order Date: 05/05/25Order Info: 0786-1 - CMPOrder Info: [id number] - RA Performed By: #### L 505.7010, L100.0100, L7000.5300, L500.4050, L101.9900, L3100.5475 ####[facility] [address] [place], [address] Sodium [Moles/Vol] 138 mmol/L Normal 133-145 [facility] Comment on above: Order Comment: Order Date: 05/05/25Order Info: 0786-1 - CMPOrder Info: [id number] - RA Performed By: #### L 505.7010, L100.0100, L7000.5300, L500.4050, L101.9900, L3100.5475 ####[facility] [address] [place], [address] T PROT 7.2 g/dL Normal 5.9-8.4 [facility] Comment on above: Order Comment: Order Date: 05/05/25Order Info: 0786-1 - CMPOrder Info: [id number] - RA Performed By: #### L 505.7010, L100.0100, L7000.5300, L500.4050, L101.9900, L3100.5475 ####[facility] [address] [place], [address] Urea nitrogen [Mass/Vol] 7 mg/dL Normal 4-19 [facility] Comment on above: Order Comment: Order Date: 05/05/25Order Info: 0786-1 - CMPOrder Info: [id number] - RA Performed By: #### L 505.7010, L100.0100, L7000.5300, L500.4050, L101.9900, L3100.5475 ####[facility] [address] [place], [address] Erythrocyte Sed Rateon 05-05 SED RATE 4 mm/hr Normal 0-30 [facility] Comment on above: Order Comment: Order Date: 05/05/25Order Info: 0184-1 - CBCDOrder Info: [id number] - SED Performed By: #### L 505.7010, L100.0100, L7000.5300, L500.4050, L101.9900, L3100.5475 ####[facility] [address] [place], [address] Hips B/L min 2 views w/ Pelv rob 05-05-2025 Hips B/L min 2 views w/ Pelvis [facility] [address] [place] [address] Hips B/L min 2 views w/ Pelvis MR#: [id number] Acct: [id number] Name: SUSANA MCCLAIN Rep #: [id number] : 1990 F 35 From: Juan Manuel marrero MD PCP: Dr. Yasmine Beavers MD Status: REG CLI Study: Hips B/L min 2 views w/ Pelvis Date of Exam: 0 05/05/25 Exam# [id number] Ordering Dr: Yasmine Beavers MD PROCEDURE: HIPS [...] No evidence for acute abnormality. Reading Location: [place] [address] CC: Dr. 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 Yasmine Beavers MD Status: REG CLI Study: Knee 3 Views Date of Exam: 05/05/25 Exam# [id number] Ordering Dr: Yasmine Beavers MD PROCEDURE: KNEE 3 VIEWS 05/05/2025 REASON FOR EXAM: KNEE PAIN TECHNIQUE: KNEE 3 VIEWS COMPARISON: MRI on 11/27/2023. FINDINGS: Mild tricompartmental changes of degenerative joint disease. Prior reconstruction of the anterior cruciate ligament. No fracture or dislocation is seen. RAD/Knee 3 Views IMPRESSION: No evidence for acute abnormality. Reading Location: [place] [address] CC: Dr. Yasmine Beavers MD Tile Mechanic: Signed Normal [facility] Knee 3 Views [facility] [address] [place], [place] [address] Knee 3 Views MR#: [id number] Acct: [id number] Name: SUSANA MCCLAINNE Rep #: [id number] : 1990 F 35 From: Juan Manuel marrero MD PCP: Dr. Yasmine Beavers MD Status: REG CLI Study: Knee 3 Views Date of Exam: 05/05/25 Exam# [id number] Ordering Dr: Yasmine Beavers MD PROCEDURE: KNEE 3 VIEWS 05/05/2025 REASON FOR EXAM: KNEE PAIN TECHNIQUE: KNEE 3 VIEWS COMPARISON: None. FINDINGS: Normal medial femorotibial compartment. Normal lateral femorotibial compartment. Normal patellofemoral articulation. Normal visualized distal femur. Normal visualized proximal tibia and fibula. Normal proximal tibiofibular articulation. RAD/Knee 3 Views IMPRESSION: No evidence for acute abnormality. Reading Location: [place] [address] CC: Dr. Yasmine Beavers MD Tile Mechanic: Signed Normal [facility] Rheumatoid Factoron 05-05-20 25 RHEUMATOID FAC < 10.0 Normal <15 [facility] Comment on above: Order Comment: Order Date: 05/05/25Order Info: 0786-1 - CMPOrder Info: [id number] - RA Performed By: #### L 505.7010, L100.0100, L7000.5300, L500.4050, L101.9900, L3100.5475 ####[facility] [address] [place], [address] Shoulder min 2 Viewson 05-05 Shoulder min 2 Views [facility] [address] [place] [address] Shoulder min 2 Views MR#: [id number] Acct: [id number] Name: SUSANA MCCLAIN Rep #: [id number] : 1990 F 35 From: Juan Manuel marrero MD PCP: Dr. Yasmine Beavers MD Status: REG CLI Study: Shoulder min 2 Views Date of Exam: 05/05/25 Exam# [id number] Ordering Dr: Yasmine Beavers MD PROCEDURE: SHOULDER [...] No evidence for acute abnormality. Reading Location: [place] [address] CC: Dr. Yasmine Beavers MD Tile Mechanic: Signed Normal [facility] Shoulder min 2 Views [facility] [address] [place] [address] Shoulder min 2 Views MR#: [id number] Acct: [id number] Name: SUSANA MCCLAIN Rep #: [id number] : 1990 F 35 From: Juan Manuel marrero MD PCP: Dr. Yasmine Beavers MD Status: REG CLI Study: Shoulder min 2 Views Date of Exam: 05/05/25 Exam# [id number] Ordering Dr: Yasmine Beavers MD PROCEDURE: SHOULDER [...] No evidence for acute abnormality. Reading Location: [place] [address] CC: Dr. Yasmine Beavers MD Tile Mechanic: Signed Normal [facility] Venous Duplex US, Unilateral on 04-24-2025 Venous Duplex US, Unilateral [facility] [address] [place] [address] Venous Duplex US, Unilateral 04/24/25 1404 MR#: [id number] Acct: [id number] Name: SUSANA MCCLAIN Rep #: [id number] : 1990 35 From: Rohit Conteh MD [...] 0757 Date Rohit Conteh MD CC: Dr. Yasmine Beavers MD Date Dictated: 04/24/25 1404 Date Transcribed: 04/27/25756 Tile Mechanic: Signed Normal [facility] Stress Reporton 12-25-2024 Stress Report [facility] [place] [address] MR#: [id number] Acct: [id number] Name: SUSANA MCCLAIN Rep #: [id number] : 1990 34 From: Rambo Tompkins MD [...] MD Date Dictated: 12/25/241717 Date Transcribed: 12/25/241717 Tile Mechanic: CO Signed Normal [facility] Lumbar Spine 2 or 3 Viewson 11-28-2024 Lumbar Spine 2 or 3 Views [facility] [address] [place] [address] Lumbar Spine 2 or 3 Views MR#: [id number] Acct: [id number] Name: SUSANA MCCLAIN Rep #: [id number] : 1990 F 34 From: Flavio peraza MD PCP: Dr. Yasmine Beavers MD Status: REG CLI Study: Lumbar Spine 2 or 3 Views Date of Exam: Exam# [id number] Ordering Dr: Yasmine Beavers MD [id number] STUDY: X-RAY - LUMBAR SPINE REASON FOR [...] EST , CC: Dr. Yasmine Beavers MD Tile Mechanic: Signed Normal [facility] Home Care Aide Office Visit Reporton 11-07-2024 Home Care Aide Office Visit Report [facility] [address], [address] [place] [address] OFFICE VISIT Date of Service: 11/07/24 MR#: [id number] Acct: [id number] Name: SUSANA MCCLAIN Rep #: [id number] : 1990 Provider: Dr. Tracey willis MD Age/Sex: 34/F Location: [facility] Status: Signed Intake Vital Signs 09/16/24 13:49 10/01/24 15:21 11/07/24 16:02 11/07/24 16:04 Height 5 ft 9 in 5 ft 9 in 5 ft 9 in 5 ft 9 in Weight: 182 lb 189 lb BMI 26.9 27.8 BP 132/76 H 117/80 Intake Visit Reasons: ADENOMYOSIS/SURGICAL CONSULT Taxi Serv[employer] Required: No Is patient in pain?: No [...] [facility] FOB Unknown Grace Unknown Alycia [...] habitus Orien (more content not included)... Normal [facility] CBC W/Diff, Automatedon 12-0 Absolute Neut Normal 2.0-7.7 [facility] Comment on above: Order Comment: Order Date: 10/21/24Order Info: 0184-1 - CBCD Result Comment: SALUD DAVIDSON DID Performed By: #### L 500.4050, L100.0100, L501.5200, L506.0400, L501.9520 ####[facility] [address] [place], [address] HCT Normal 37-47 [facility] Comment on above: Order Comment: Order Date: 10/21/24Order Info: 0184-1 - CBCD Result Comment: ALRE STUART DID Performed By: #### L 500.4050, L100.0100, L501.5200, L506.0400, L501.9520 ####[facility] [address] [place], [address] HGB Normal 12.0-15.0 [facility] Comment on above: Order Comment: Order Date: 10/21/24Order Info: 0184-1 - CBCD Result Comment: ALRE STUART DID Performed By: #### L 500.4050, L100.0100, L501.5200, L506.0400, L501.9520 ####[facility] [address] [place], [address] MCH Normal 27.0-32.0 [facility] Comment on above: Order Comment: Order Date: 10/21/24Order Info: 0184- - CBCD Result Comment: ALRE STUART DID Performed By: #### L 500.4050, L100.0100, L501.5200, L506.0400, L501.9520 ####[facility] [address] [place], [address] MCHC Normal 32-36 [facility] Comment on above: Order Comment: Order Date: 10/21/24Order Info: 0184-1 - CBCD Result Comment: ALRE STUART DID Performed By: #### L 500.4050, L100.0100, L501.5200, L506.0400, L501.9520 ####[facility] [address] [place], [address] MCV Normal 81-99 [facility] Comment on above: Order Comment: Order Date: 10/21/24Order Info: 018-1 - CBCD Result Comment: ALRE STUART DID Performed By: #### L 500.4050, L100.0100, L501.5200, L506.0400, L501.9520 ####[facility] [address] [place], [address] NEUT% Normal 47-70 [facility] Comment on above: Order Comment: Order Date: 10/21/24Order Info: 0184- - CBCD Result Comment: ALRE STUART DID Performed By: #### L 500.4050, L100.0100, L501.5200, L506.0400, L501.9520 ####[facility] [address] [place], [address] PLT Normal 150-450 [facility] Comment on above: Order Comment: Order Date: 10/21/24Order Info: 018- - CBCD Result Comment: ALRE STUART DID Performed By: #### L 500.4050, L100.0100, L501.5200, L506.0400, L501.9520 ####[facility] [address] [place], [address] RBC Normal 4.2-5.4 [facility] Comment on above: Order Comment: Order Date: 10/21/24Order Info: 018- - CBCD Result Comment: ALRE STUART DID Performed By: #### L 500.4050, L100.0100, L501.5200, L506.0400, L501.9520 ####[facility] [address] [place], [address] RDW CV Normal 11.6-14.6 [facility] Comment on above: Order Comment: Order Date: 10/21/24Order Info: 0184-1 - CBCD Result Comment: ALRE STUART DID Performed By: #### L 500.4050, L100.0100, L501.5200, L506.0400, L501.9520 ####[facility] [address] [place], [address] RDW SD Normal 35.1-43.9 [facility] Comment on above: Order Comment: Order Date: 10/21/24Order Info: 0184-1 - CBCD Result Comment: ALRE STUART DID Performed By: #### L 500.4050, L100.0100, L501.5200, L506.0400, L501.9520 ####[facility] [address] [place], [address] WBC Normal 4.4-11.0 [facility] Comment on above: Order Comment: Order Date: 10/21/24Order Info: 0184-1 - CBCD Result Comment: ALRE STUART DID Performed By: #### L 500.4050, L100.0100, L501.5200, L506.0400, L501.9520 ####[facility] [address] [place], [address] Comprehensive Metabolic Prof ilon 10-21-2024 Albumin [Mass/Vol] 3.8 g/dL Normal 3.2-5.0 [facility] Comment on above: Order Comment: Order Date: 10/21/24Order Info: 0786-1 - CMPOrder Info: 14667-1 - MGOrder Info: 3015-3 - TSHOrder Info: 3023-7 - T4F Performed By: #### L 500.4050, L100.0100, L501.5200, L506.0400, L501.9520 ####[facility] [address] [place], [address] Albumin/Globulin [Mass ratio] 1.0 {ratio} Normal 0.9-2.4 [facility] Comment on above: Order Comment: Order Date: 10/21/24Order Info: 0786-1 - CMPOrder Info: [id number] - MGOrder Info: 3015-3 - TSHOrder Info: 3024-7 - T4F Performed By: #### L 500.4050, L100.0100, L501.5200, L506.0400, L501.9520 ####[facility] [address] [place], [address] ALK P 45 U/L Normal 45-117 [facility] Comment on above: Order Comment: Order Date: 10/21/24Order Info: 0786-1 - CMPOrder Info: 21328-6 - MGOrder Info: 3016-3 - TSHOrder Info: 3024-7 - T4F Performed By: #### L 500.4050, L100.0100, L501.5200, L506.0400, L501.9520 ####[facility] [address] [place], [address] ALT [Catalytic activity/Vol] 23 U/L Normal 13-56 [facility] Comment on above: Order Comment: Order Date: 10/21/24Order Info: 0786-1 - CMPOrder Info: 31842-7 - MGOrder Info: 3016-3 - TSHOrder Info: 3024-7 - T4F Performed By: #### L 500.4050, L100.0100, L501.5200, L506.0400, L501.9520 ####[facility] [address] [place], [address] AST [Catalytic activity/Vol] 15 U/L Normal 15-37 [facility] Comment on above: Order Comment: Order Date: 10/21/24Order Info: 0786-1 - CMPOrder Info: 16332-2 - MGOrder Info: 3016-3 - TSHOrder Info: 3024-7 - T4F Performed By: #### L 500.4050, L100.0100, L501.5200, L506.0400, L501.9520 ####[facility] [address] [place], [address] Bilirubin [Mass/Vol] 0.30 mg/dL Normal 0.20-1.00 [facility] Comment on above: Order Comment: Order Date: 10/21/24Order Info: 0786-1 - CMPOrder Info: 67327-8 - MGOrder Info: 3016-3 - TSHOrder Info: 3024-7 - T4F Result Comment: For patients on eltrombopag therapy, use of Dimension [place] TBIL is not recommended. Performed By: #### L 500.4050, L100.0100, L501.5200, L506.0400, L501.9520 ####[facility] [address] [place], [address] BUN/CRE 6.9 RATIO Low 10-20 [facility] Comment on above: Order Comment: Order Date: 10/21/24Order Info: 0786-1 - CMPOrder Info: 90743-1 - MGOrder Info: 3016-3 - TSHOrder Info: 3024-7 - T4F Performed By: #### L 500.4050, L100.0100, L501.5200, L506.0400, L501.9520 ####[facility] [address] [place], [address] CA,Total 8.6 mg/dL Normal 8.5-10.1 [facility] Comment on above: Order Comment: Order Date: 10/21/24Order Info: 0786-1 - CMPOrder Info: [id number] - MGOrder Info: 3016-3 - TSHOrder Info: 3024-7 - T4F Performed By: #### L 500.4050, L100.0100, L501.5200, L506.0400, L501.9520 ####[facility] [address] [place], [address] Chloride [Moles/Vol] 106 mmol/L Normal 98-107 [facility] Comment on above: Order Comment: Order Date: 10/21/24Order Info: 0786-1 - CMPOrder Info: 78064-4 - MGOrder Info: 3016-3 - TSHOrder Info: 3024-7 - T4F Performed By: #### L 500.4050, L100.0100, L501.5200, L506.0400, L501.9520 ####[facility] [address] [place], [address] CO2 [Moles/Vol] 23.0 mmol/L Normal 21.0-32.0 [facility] Comment on above: Order Comment: Order Date: 10/21/24Order Info: 86-1 - CMPOrder Info: 46890-1 - MGOrder Info: 3016-3 - TSHOrder Info: 3024-7 - T4F Performed By: #### L 500.4050, L100.0100, L501.5200, L506.0400, L501.9520 ####[facility] [address] [place], [address] Creatinine [Mass/Vol] 0.88 mg/dL Normal 0.55-1.02 [facility] Comment on above: Order Comment: Order Date: 10/21/24Order Info: 785- - CMPOrder Info: [id number] - MGOrder Info: 3 - TSHOrder Info: 3024-7 - T4F Result Comment: The validity of the calculated GFR GFRAA in patients over 70 years has not been determined. Clinical correlation is essential. Performed By: #### L 500.4050, L100.0100, L501.5200, L506.0400, L501.9520 ####[facility] [address] [place], [address] EST GFR - AA 96 mL/min Normal >60 [facility] Comment on above: Order Comment: Order Date: 10/21/24Order Info: 785-1 - CMPOrder Info: 18048-6 - MGOrder Info: 30163 - TSHOrder Info: 3024-7 - T4F Result Comment: Afri can [place] GFR Calc Performed By: #### L 500.4050, L100.0100, L501.5200, L506.0400, L501.9520 ####[facility] [address] [place] [id number] GAP 8 Normal 5-15 [facility] Comment on above: Order Comment: Order Date: 10/21/24Order Info: 0786-1 - CMPOrder Info: 26852-1 - MGOrder Info: 3016-3 - TSHOrder Info: 3024-7 - T4F Performed By: #### L 500.4050, L100.0100, L501.5200, L506.0400, L501.9520 ####[facility] [address] [place], [address] GFR/1.73 sq M.predicted among non-blacks MDRD (S/P/Bld) [Vol rate/Area] 79 mL/min/{1.73_m2} Normal >60 [facility] Comment on above: Order Comment: Order Date: 10/21/24Order Info: 07-1 - CMPOrder Info: 10490-5 - MGOrder Info: 3016-3 - TSHOrder Info: 3024-7 - T4F Result Comment: Non- GFR Calc Performed By: #### L 500.4050, L100.0100, L501.5200, L506.0400, L501.9520 ####[facility] [address] [place], [address] Globulin (S) [Mass/Vol] 3.8 g/dL Normal 2.2-4.2 [facility] Comment on above: Order Comment: Order Date: 10/21/24Order Info: 0786-1 - CMPOrder Info: 54839-1 - MGOrder Info: 3016-3 - TSHOrder Info: 3024-7 - T4F Performed By: #### L 500.4050, L100.0100, L501.5200, L506.0400, L501.9520 ####[facility] [address] [place], [address] Glucose [Mass/Vol] 111 mg/dL High 74-106 [facility] Comment on above: Order Comment: Order Date: 10/21/24Order Info: 0786-1 - CMPOrder Info: 58837-9 - MGOrder Info: 3015-3 - TSHOrder Info: 3024-7 - T4F Result Comment: Fast ing Glucose result from 100 to 125 mg/dL suggests IMPAIRED HOMEOSTASIS per A.D.A. criteria. Performed By: #### L 500.4050, L100.0100, L501.5200, L506.0400, L501.9520 ####[facility] [address] [place], [address] Potassium [Moles/Vol] 3.6 mmol/L Normal 3.5-5.1 [facility] Comment on above: Order Comment: Order Date: 10/21/24Order Info: 785-1 - CMPOrder Info: 87440-8 - MGOrder Info: 3015-3 - TSHOrder Info: 3024-7 - T4F Performed By: #### L 500.4050, L100.0100, L501.5200, L506.0400, L501.9520 ####[facility] [address] [place], [address] Sodium [Moles/Vol] 137 mmol/L Normal 136-145 [facility] Comment on above: Order Comment: Order Date: 10/21/24Order Info: 07-1 - CMPOrder Info: 82947-3 - MGOrder Info: 6-3 - TSHOrder Info: 3024-7 - T4F Performed By: #### L 500.4050, L100.0100, L501.5200, L506.0400, L501.9520 ####[facility] [address] [place], [address] T PROT 7.6 g/dL Normal 6.4-8.2 [facility] Comment on above: Order Comment: Order Date: 10/21/24Order Info: 0786-1 - CMPOrder Info: 52041-5 - MGOrder Info: 3016-3 - TSHOrder Info: 3024-7 - T4F Performed By: #### L 500.4050, L100.0100, L501.5200, L506.0400, L501.9520 ####[facility] [address] [place], [address] Urea nitrogen [Mass/Vol] 6 mg/dL Low 7-18 [facility] Comment on above: Order Comment: Order Date: 10/21/24Order Info: 0786-1 - CMPOrder Info: 24818-3 - MGOrder Info: 3016-3 - TSHOrder Info: 3024-7 - T4F Performed By: #### L 500.4050, L100.0100, L501.5200, L506.0400, L501.9520 ####[facility] [address] [place], [address] Magnesiumon 10-21-2024 Magnesium [Mass/Vol] 2.3 mg/dL Normal 1.6-2.6 [facility] Comment on above: Order Comment: Order Date: 10/21/24Order Info: 0786-1 - CMPOrder Info: 26013-2 - MGOrder Info: 63 - TSHOrder Info: 3024-7 - T4F Performed By: #### L 500.4050, L100.0100, L501.5200, L506.0400, L501.9520 ####[facility] [address] [place], [address] T4 Free Directon 10-21-2024 T4 FREE DIRECT 0.98 ng/dL Normal 0.76-1.46 [facility] Comment on above: Order Comment: Order Date: 10/21/24Order Info: [id number] - CMPOrder Info: [id number] - MGOrder Info: 3016-3 - TSHOrder Info: 3024-7 - T4F Performed By: #### L 500.4050, L100.0100, L501.5200, L506.0400, L501.9520 ####[facility] [address] [place], [address] Thyroid Stim Hormone (TSH)on 10-21-2024 TSH 1.610 uIU/mL Normal 0.358-3.740 [facility] Comment on above: Order Comment: Order Date: 10/21/24Order Info: [id number] - CMPOrder Info: 19670-4 - MGOrder Info: 3016-3 - TSHOrder Info: 3024-7 - T4F Performed By: #### L 500.4050, L100.0100, L501.5200, L506.0400, L501.9520 ####[facility] [address] [place], [address] Home Care Aide Office Visit Reporton 10-01-2024 Home Care Aide Office Visit Report [facility]'s [address], [address] [place] [address] OFFICE VISIT Date of Service: 10/01/24 MR#: [id number] Acct: [id number] Name: SUSANA MCCLAIN Rep #: [id number] : 1990 Provider: KODAK paez Age/Sex: 34/F [place] [facility] [place] [place]: Signed Intake Vital Signs 09/16/24 13:49 10/01/24 15:21 Height 5 ft 9 in 5 ft 9 in Weight: 182 lb 187 lb BMI 26.9 27.6 BP 132/76 H 124/72 H Intake Visit Reasons: IUD Chief Complaint: IUD insertion Taxi Servicer Required: No Is patient in pain?: No [...] Bth Weight Gen Labor Lgth Anesthesia [facility] Provider FOB Unknown Grace Unknown Alycia Unknown [...] plan IUD, (more content not included)... Normal [facility] Home Care Aide Office Visit Reporton 09-16-2024 Home Care Aide Office Visit Report [facility] [address], [address] [place] [address] OFFICE VISIT Date of Service: 09/16/24 MR#: [id number] Acct: [id number] Name: SUSANA MCCLAIN Rep #: [id number] : 1990 Provider: Dr. Tracey willis MD Age/Sex: 34/F [place] [facility] [place]: Signed Intake Vital Signs 05/23/24 17:54 09/16/24 13:49 Height 5 ft 9 in 5 ft 9 in Weight: 182 lb BMI 26.9 BP 132/76 H Intake Visit Reasons: UTERINE FIBROID ([place]) Taxi Servicer Required: No Allergies azithromycin (From Zithromax) Allergy [...] no rashes (more content not included)... Normal [facility] Transvaginal Non-on 08-22-2024 Transvaginal Non- [facility] [address] [place], [place] [id number] Transvaginal Non- MR#: [id number] Acct: [id number] Name: SUSANA MCCLAIN Rep #: [id number] : 1990 F 34 From: Jonathan Power DO PCP: Dr. Yasmine Beavers MD Status: REG CLI Study: Transvaginal Non- Date of Exam: Exam# [id number] Ordering Dr: Zoe Duran PICC NURSE PICC NURSE-C [id number] INDICATION: Excessive and frequent menstruation with regular [...] 18:39 EDT Reading Location ID and State: [address] [place] [address] Tel [phone], Service support , CC: KODAK Duran; Dr. Yasmine Beavers MD Tile Mechanic: Signed Normal [facility] Venous Duplex US, Unilateral on 06-11-2024 Venous Duplex US, Unilateral [facility] [address] [place] [address] Venous Duplex US, Unilateral 06/11/24 1516 MR#: [id number] Acct: [id number] Name: SUSANA MCCLAIN Rep #: [id number] : 1990 34 From: Rohit Conteh MD [...] Dictated: 06/11/24 1516 Date Transcribed: 06/11/24 1613 Tile Mechanic: Signed Normal [facility] Chest PA and Lateralon 05-23 Chest PA and Lateral [facility] [address] [place] [id number] Chest PA and Lateral MR#: [id number] Acct: [id number] Name: SUSANA MCCLAIN Rep #: [id number] : 1990 F 34 From: Alvin Bone MD PCP: Dr. Yasmine Beavers MD Status: PRE ER Study: Chest PA and Lateral Date of Exam: 05/23/24 Exam# [id number] Ordering Dr: Joanna Castellano [id number] STUDY: X-RAY CHEST REASON FOR EXAM: Female, [...] 18:35 EDT Reading Location ID and State: [address] [place] [address] Tel , Service support , CC: Dr. Yasmine Beavers MD; BHAVIN Reddy Tile Mechanic: Signed Normal [facility] Emergency Department Summary on 05-23-2024 Emergency Department Summary [facility] Medical Records Department [address] [place] [address] Emergency Department Summary 05/23/24 MR#: [id number] Acct: [id number] Name: SUSANA MCCLAIN Rep #: [id number] : 1990 34 From: Joanna DELCID PCP: [...] no chest pain. No fever or chills. [facility] Medical History ADHD Alcohol abuse Alcohol [...] Air MDM (more content not included)... Normal [facility] CBC + DIFFon 04-23-2024 Baso # 0.02 x10EE3/UL Normal 0.00 - 0.10 [facility] Comment on above: Performed By: #### 2 95101 #### [facility],[address] [place] [address] Basophils/100 WBC (Bld) 0.2 % Normal 0.0 - 2.0 [facility] Comment on above: Performed By: #### 2 71616 #### [facility],[address] [place] [address] CBC + DIFF Normal [facility] Comment on above: Result Comment: CBC- COMPLETE BLOOD COUNT Performed By: #### 2 17181 #### [facility],[address] [place] [address] EO # 0.21 x10EE3/UL Normal 0.00 - 0.50 [facility] Comment on above: Performed By: #### 2 76014 #### [facility],[address] [place] [address] Eosinophils/100 WBC (Bld) 2.0 % Normal 0.0 - 7.0 [facility] Comment on above: Performed By: #### 2 08279 #### [facility],[address] [place] [address] Erythrocyte distribution width (RBC) [Ratio] 13.8 % Normal 12.0 - 15.6 [facility] Comment on above: Performed By: #### 2 15359 #### [facility],[address] [place] [address] Hematocrit (Bld) [Volume fraction] 39.7 % Normal 34.0 - 46.0 [facility] Comment on above: Performed By: #### 2 23745 #### [facility],[address] [place] [address] Hemoglobin (Bld) [Mass/Vol] 13.4 g/dL Normal 12.0 - 16.0 [facility] Comment on above: Performed By: #### 2 60188 #### [facility],[address] [place] [address] Lymph # 1.83 x10EE3/UL Normal 0.80 - 2.80 [facility] Comment on above: Performed By: #### 2 28012 #### [facility],[address] [place] [address]164 Lymphocytes/100 WBC (Bld) 16.9 % Low 20.0 - 45.0 [facility] Comment on above: Performed By: #### 2 75165 #### [facility],[address] [place] [address] 20621 MANUAL DIFF N/A Normal [facility] Comment on above: Performed By: #### 2 33669 #### [facility],[address] [place] [address] MCH (RBC) [Entitic mass] 29 pg Normal 27 - 33 [facility] Comment on above: Performed By: #### 2 80484 #### [facility],[address] [place] [address] MCHC 34 X10 3 Normal 32 - 36 [facility] Comment on above: Performed By: #### 2 10791 #### [facility],[address] [place], [place] [address] MCV (RBC) [Entitic vol] 87 fL Normal 80 - 99 [facility] Comment on above: Performed By: #### 2 79330 #### [facility],[address] [place] [address] [place] # 0.69 x10EE3/UL Normal 0.20 - 1.00 [facility] Comment on above: Performed By: #### 2 47891 #### [facility],[address] [place], [place] [address] MONOS % 6.4 % Normal 0.0 - 10.0 [facility] Comment on above: Performed By: #### 2 77533 #### [facility],[address] [place] [address]4025 Morphology Juarez (Bld) [Interp] N/A Normal [facility] Comment on above: Performed By: #### 2 34999 #### [facility],[address] [place] [address] 67525 Neut # 8.04 x10EE3/UL High 1.50 - 7.10 [facility] Comment on above: Performed By: #### 2 92457 #### [facility],[address] [place] [address] 59199 Neutrophils/100 WBC (Bld) 74.6 % Normal 46.0 - 76.0 [facility] Comment on above: Performed By: #### 2 69825 #### [facility],[address] [place] [address] 22333 PLATELET 260 x10EE3/UL Normal 150 - 450 [facility] Comment on above: Performed By: #### 2 39366 #### [facility],[address] [place] [address] 98920 Platelet mean volume (Bld) [Entitic vol] 7.8 fL Normal 6.6 - 10.5 [facility] Comment on above: Result Comment: AUTO MATED DIFFERENTIAL Performed By: #### 2 96363 #### [facility],[address] [place] [address] 46946 RBC 4.59 x 10EE6/UL Normal 4.10 - 5.30 [facility] Comment on above: Performed By: #### 2 25725 #### [facility],[address] [place] [address] 13516 WBC 10.8 x 10EE3/UL Normal 4.5 - 10.8 [facility] Comment on above: Performed By: #### 2 28376 #### [facility],[address] [place] [address] 22069 CHEST 1 VIEWon 04-23-2024 CHEST 1 VIEW [place] [address] Patient: SUSANA MCCLAIN Phone#: : 1990 Age: 34 Gender: F Pt. Type: ER Account: [id number] Location: [facility] Ordering: DR. DIANE MANRIQUEZ Exam Date: 04/23/2024/11:04 Family Phys: Charge Code: [id number] Physician: [place] Order #: [id number] Dose#: PROCEDURE: X-RAY CHEST 1 VIEW COMPARISON: [...] Miles MD on 04/23/2024 at 11:22 Normal [facility] CMP with eGFRon 04-23-2024 AGE 34 years Normal [facility] Comment on above: Performed By: #### 2 01488 #### [facility],[address] [place] [address] 00474 Albumin [Mass/Vol] 3.7 g/dL Normal 3.4 - 5.0 [facility] Comment on above: Performed By: #### 2 74082 #### [facility],[address] [place] [address] 33837 Albumin/Globulin [Mass ratio] 1.1 {ratio} Normal 0.9 - 1.6 [facility] Comment on above: Performed By: #### 2 81823 #### [facility],[address] [place] [address] 56884 ALK PHOS 47 U/L Normal 46 - 116 [facility] Comment on above: Performed By: #### 2 99519 #### [facility],[address] [place] [address] 20686 ALT [Catalytic activity/Vol] 17 U/L Normal 16 - 63 [facility] Comment on above: Performed By: #### 2 93989 #### [facility],[address] [place] [address] 37510 Anion gap [Moles/Vol] 11 mmol/L Normal 10 - 20 [facility] Comment on above: Performed By: #### 2 29352 #### [facility],[address] [place] [address] 05388 AST [Catalytic activity/Vol] 15 U/L Normal 13 - 39 [facility] Comment on above: Performed By: #### 2 38148 #### [facility],[address] [place] [address] 98270 B/C RATIO 7 ratio Normal 0 - 30 [facility] Comment on above: Performed By: #### 2 42911 #### [facility],[address] [place] [address] 57216 Bilirubin [Mass/Vol] 0.4 mg/dL Normal 0.2 - 1.0 [facility] Comment on above: Performed By: #### 2 53846 #### [facility],[address] [place] [address] 36942 Calcium [Mass/Vol] 8.9 mg/dL Normal 8.5 - 10.1 [facility] Comment on above: Performed By: #### 2 38758 #### [facility],[address] [place] [address] 40052 Chloride [Moles/Vol] 103 mmol/L Normal 98 - 107 [facility] Comment on above: Performed By: #### 2 65707 #### [facility],[address] [place] [address] 26860 CMP with eGFR Normal [facility] Comment on above: Result Comment: COMP REHENSIVE METABOLIC PANEL Performed By: #### 2 39862 #### [facility],[address] [place] [address] 27305 CO2 [Moles/Vol] 25.7 mmol/L Normal 21.0 - 32.0 [facility] Comment on above: Performed By: #### 2 62686 #### [facility],[address] [place] [address] 21585 Creatinine [Mass/Vol] 0.89 mg/dL Normal 0.55 - 1.02 [facility] Comment on above: Performed By: #### 2 74869 #### [facility],[address] [place] [address] 65632 GFR/1.73 sq M.predicted among non-blacks MDRD (S/P/Bld) [Vol rate/Area] mL/min/{1.73_m2} Normal 60 - 999 [facility] Comment on above: Performed By: #### 2 38948 #### [facility],[address] [place] [address] 97627 Result Comment: ACCO RDING TO THE NATIONAL KIDNEY DISEASE EDUCATION PROGRAM(NKDE), A NORMAL eGFR IS A VALUE GREATER THAN OR EQUAL TO 60 ML/MIN/1.73 SQ METERS. CHRONIC KIDNEY DISEASE: <60mL/MIN/1.73 SQ METERS KIDNEY FAILURE: <15mL/MIN/1.73 SQ METERS THIS TEST SHOULD ONLY BE USED FOR PATIENTS 18 YEARS OF AGE AND OLDER. Globulin (S) [Mass/Vol] 3.4 g/dL Normal 1.5 - 3.8 [facility] Comment on above: Performed By: #### 2 18390 #### [facility],[address] [place] [address] 16986 Glucose [Mass/Vol] 100 mg/dL Normal 74 - 106 [facility] Comment on above: Performed By: #### 2 11745 #### [facility],[address] [place] [address] 45293 Potassium [Moles/Vol] 3.8 mmol/L Normal 3.5 - 5.1 [facility] Comment on above: Performed By: #### 2 50854 #### [facility],[address] [place] [address] 77451 Protein [Mass/Vol] 7.1 g/dL Normal 6.4 - 8.2 [facility] Comment on above: Performed By: #### 2 04341 #### [facility],[address] [place] [address] 25478 Sodium [Moles/Vol] 136 mmol/L Normal 136 - 145 [facility] Comment on above: Performed By: #### 2 99302 #### [facility],[address] [place] [address] 02271 Urea nitrogen [Mass/Vol] 6 mg/dL Low 7 - 18 [facility] Comment on above: Performed By: #### 2 45949 #### [facility],[address] [place] [address] 78713 D-DIMER, QUANTITATIVEon 06- D-DIMER QUANT <200 Normal 0 - 230 [facility] Comment on above: Performed By: #### 2 19607 #### [facility],[address] [place] [address] 19661 D-DIMER, QUANTITATIVE Normal [facility] Comment on above: Result Comment: ZULEMA T D-DIMER Performed By: #### 2 77299 #### [facility],[address] [place] [address] 02173 TROPONIN I, HIGH SENSITIVITY on 04-23-2024 HS TROPONIN <4.0 Normal 0.0 - 51.4 [facility] Comment on above: Performed By: #### 2 10005 #### [facility],[address] [place] [address] 41512 HS TROPONIN <4.0 Normal 0.0 - 51.4 [facility] Comment on above: Performed By: #### 2 09124 #### [facility],[address] [place] [address] 20055 CNOVon 01-20-2024 CNOV Office Visit (UCWSTR) SUSANA MCCLAIN ([id number]) 1990 F Date Time Provider Department 01/20/24 11:45 AM [facility] During your visit today, we recorded the following information about you: Temperature Pulse Respiration Blood pressure 98.6 degrees 100/minute 21/minute 122/80 Weight 88.4 kg Gloria Barrera PA-C 01/20/2024 12:09 PM Signed This note was created using [employer]. Subjective Suasna Mcclain is a 33 year old female. [...] CULTURE WITH GRAM STAIN [SQWCUL] Order #: [id number] FUTURE cephALEXin (KEFLEX) 500 mg capsuleTake 1 capsule by mouth four times daily for 7 days.Disp: 28 capsuleRfl: 0 ABSCESS AND WOUND CULTURE WITH GRAM STAIN [SQWCUL] Order #: (more content not included)... Normal [facility] User Interface Engineer Cytology Reporton 2022 User Interface Engineer Cytology Report . Pathology Reports Accession: Collected Date/Time: Received Date/Time: Pathologist: [id number] 09/14/2023 14:14 EDT 09/14/2023 18:00 EDT User Interface Engineer Cytology Report SPECIMEN: Specimen Description: Liquid Prep [...] and evaluated with the assistance of the [employer] ThinPrep Test Imaging System. Pathology Reports Accession: Collected Date/Time: Received Date/Time: Pathologist: [id number] 09/14/2023 14:14 EDT 09/14/2023 18:00 EDT Electronically Signed by Pathology report verified by [facility] Screened by: DW Electronically signed by Aida Morales Sign-Out Date: 09/21/2023 13:28 Performing Lab: [facility], [address] [place] [address] Pathology Dept Disclaimer The Pap test is a screening test for cervical cancer. As evidenced by published data, it is subject to both inherent false negative and false positive results. Your patient's results should be interpreted in context with pertinent clinical history including gynecological examination. Normal [facility] ([place]) HPVon 09-20-2023 HPV Interp Normal See Interp HPVN [facility] ([place] Comment on above: Order Comment: Order placed by AP_HPV_ORDER rule from [id number] Result Comment: High Risk HPV Typing: NEGATIVE [...] HPVN Performed By: #### H PV #### [place] [address] HPV Source Cervix Normal [facility] ([place] Comment on above: Order Comment: Order placed by AP_HPV_ORDER rule from [id number] Performed By: #### H PV #### [place] [address] CTPCRon 09-17-2023 C. trachomatis Interp Normal See CT Interp N [facility] ([place]) Comment on above: Result Comment: C. t rachomatis DNA not detected. Specimen is presumptive negative for C. trachomatis. A negative result does not preclude C. trachomatis infection because results depend on adequate specimen collection, absence of inhibitors, and sufficient DNA to be detected. See CT Interp N Performed By: #### C TPCR, NGPCR1 #### [address] [address] C.trachomatis PCR Negative Normal Negative [facility] ([place]) Comment on above: Result Comment: Mole cular (PCR) assay performed on the Babat[employer] Wilbur 4800 system. Performed By: #### C TPCR, NGPCR1 #### [address] [address] Chlam Source Urine Normal [facility] ([place]) Comment on above: Performed By: #### C TPCR, NGPCR1 #### [address] [address] [id number] 09-17-2023 GC PCR Source Urine Normal [facility] ([place]) Comment on above: Performed By: #### C TPCR, NGPCR1 #### [address] [address] N. gonorrhoeae (PCR) Negative Normal Negative [facility] ([place]) Comment on above: Result Comment: Mole cular (PCR) assay performed on the [employer] Wilbur 4800 System. Performed By: #### C TPCR, NGPCR1 #### [address] [address] N. gonorrhoeae Interp Normal See NG Interp N [facility] ([place]) Comment on above: Result Comment: N. g onorrhoeae DNA not detected. Specimen is presumptive negative for N. gonorrhoeae. A negative result does not preclude Neisseria gonorrhoeae infection because results depend on adequate specimen collection, absence of inhibitors, and sufficient DNA to be detected. See NG Interp N Performed By: #### C TPCR, NGPCR1 #### [address] [address] CNPMarlene 05-30-2023 CNPN Telephone (FAMPWS) SUSANA MCCLAIN ([id number]) 1990 F Date Time Provider Department 05/30/23 [...] qualifies. Attempted to schedule virtual visit with PICC NURSE and was denied. 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]09/03/2018 Chronic insomnia [F51.04] 09/10/2019 Acne vulgaris [L70.0] 09/10/2019 Bipolar disorder, in partial remission, most re*09/24/2020 Encounter Status:Closed by Katia IDCKSON RN on 05/30/23 [facility] 04-26-2023 CNPN Telephone (PSWSTR) SUSANA MCCLAIN ([id number]) 1990 F Date Time Provider Department 04/26/23 [...] Reviewed: 01/26/2023 Reviewed by: Marco Antonio Costa APRN.DESIGN PAINTER - Fully Assessed Reason for Visit: Patient Question [2937] Order(s):QUEtiapine (SEROQUEL) 200 mg tabletTake 1 tablet [...] veins [I83.90] 03/21/2013 ASCUS on Pap smear [[id number]] 04/11/2013 Pain in joint, lower leg [M25.569] [...] Encounter Status:Closed by CEDRICK CLARK on 04/27/23 [facility] 02-12-2023 [facility] Telephone (PSYCBE) SUSANA MCCLAIN ([id number]) 1990 F Date Time Provider Department 02/12/23 [...] Reviewed: 01/26/2023 Reviewed by: Marco Antonio Costa APRN.DESIGN PAINTER - Fully Assessed Reason for Visit: Appointment [...] veins [I83.90] 03/21/2013 ASCUS on Pap smear [KNY5280] 04/11/2013 Pain in joint, lower leg [M25.569] 08/31/2014 Unspecified disorder of lower leg joint [M25.9] 08/31/2014 10/14/2018 Varicose veins of leg with pain, 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]09/03/2018 Chronic insomnia [F51.04] 09/10/2019 Acne vulgaris [L70.0] 09/10/2019 Bipolar disorder, in partial remission, most re*09/24/2020 Encounter Status:Closed by [facility] GLOVER [facility]23 [facility] SUSANA MCCLAIN ([id number]) 1990 F Date Time Provider Department 02/09/23 [...] Reviewed: 01/26/2023 Reviewed by: Marco Antonio Costa APRN.DESIGN PAINTER - Fully Assessed Reason for Visit: Results [...] veins [I83.90] 03/21/2013 ASCUS on Pap smear [QRW0353] 04/11/2013 Pain in joint, lower leg [M25.569] 08/31/2014 Unspecified disorder of lower leg joint [M25.9] 08/31/2014 10/14/2018 Varicose veins of leg with pain, 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]09/03/2018 Chronic insomnia [F51.04] 09/10/2019 Acne vulgaris [L70.0] 09/10/2019 Bipolar disorder, in partial remission, most re*09/24/2020 Encounter Status:Closed by SYLVIA BEST on 3/24/23 Normal [place] [address](OH)D3 SerPl-mCncon 2022 25-hydroxyvitamin D3 [Mass/Vol] 21.4 ng/mL Low 31.0-80.0 [facility] Comment on above: Order Comment: Speci men Type: BLOOD SPECIMEN Ordering Facility: [facility] Address: [address] [place] [address] Result Comment: Clas sification of 25 [place] Vitamin D status: Deficiency/Insufficiency: < or = 30 ng/ml. Sufficiency/Optimal Levels: 31-80 ng/mL Toxicity: > 100 ng/mL. Test performed by chemiluminescent immunoassay. Performed By: #### 2 276-4, 3015-3, , 1988-03 #### [facility] CLIA [id number] [address] [place] [address] [place] CBC panel Auto (Bld)on 02-08 Erythrocyte distribution width (RBC) [Ratio] 14.1 % Normal 11.5-15.0 [facility] Comment on above: Order Comment: Speci men Type: BLOOD SPECIMEN Ordering Facility: [facility] Address: [address] [place] [address] Performed By: #### 2 276-4, 3, , 1988-03 #### [facility] [facility] CLIA [id number] [address] [place] [address] [place] Hematocrit (Bld) [Volume fraction] 43.0 % Normal 36.0-46.0 [facility] Comment on above: Order Comment: Speci men Type: BLOOD SPECIMEN Ordering Facility: [facility] Address: [address] [place], [place] [phone] Performed By: #### 2 276-4, 3015-3, , 1988-03 #### [facility] CLIA [id number] [address] [place] [address] [place] Hemoglobin (Bld) [Mass/Vol] 14.4 g/dL Normal 11.5-15.5 [facility] Comment on above: Order Comment: Speci men Type: BLOOD SPECIMEN Ordering Facility: [facility] Address: [address] Performed By: #### 2 276-4, 3, , 1988-03 #### [facility] CLIA [id number] [address] [place] [address] [place] MCH (RBC) [Entitic mass] 29.2 pg Normal 26.0-34.0 [facility] Comment on above: Order Comment: Speci men Type: BLOOD SPECIMEN Ordering Facility: [facility] Address: [address] Performed By: #### 2 276-4, 3, , 1988-03 #### [facility] CLIA [id number] [address] [place] [address] [place] MCHC (RBC) [Mass/Vol] 33.5 g/dL Normal 30.5-36.0 [facility] Comment on above: Order Comment: Speci men Type: BLOOD SPECIMEN Ordering Facility: [facility] Address: [address] Performed By: #### 2 276-4, 3016-01, , 1988-03 #### [facility] CLIA [id number] [address] [place] [address] [place] MCV (RBC) [Entitic vol] 87.2 fL Normal 80.0-100.0 [facility] Comment on above: Order Comment: Speci men Type: BLOOD SPECIMEN Ordering Facility: [facility] Address: [address] [place] [address] Performed By: #### 2 276-4, 3016-01, , 1988-03 #### [facility] CLIA [id number] [address] [place] [address] [place] Nucleated RBC (Bld) [#/Vol] 10*3/uL Normal <0.01 [facility] Comment on above: Order Comment: Speci men Type: BLOOD SPECIMEN Ordering Facility: [facility] Address: [address] [place] [phone] Performed By: #### 2 276-4, 3015-3, , 1988-03 #### [facility] CLIA [id number] [address] [place] [address] [place] Platelet mean volume (Bld) [Entitic vol] 10.2 fL Normal 9.0-12.7 [facility] Comment on above: Order Comment: Speci men Type: BLOOD SPECIMEN Ordering Facility: [facility] Address: [address] [place], [place] [address] Performed By: #### 2 276-4, 3015-3, , 1988-03 #### [facility] CLIA [id number] [address] [place] [address] [place] Platelets (Bld) [#/Vol] 258 10*3/uL Normal 150-400 [facility] Comment on above: Order Comment: Speci men Type: BLOOD SPECIMEN Ordering Facility: [facility] Address: [address] [place], [place] [address] Performed By: #### 2 276-4, 3015-3, , 1988-03 #### [facility] CLIA [id number] [address] [place] [address] [place] RBC (Bld) [#/Vol] 4.93 10*6/uL Normal 3.90-5.20 [facility] Comment on above: Order Comment: Speci men Type: BLOOD SPECIMEN Ordering Facility: [facility] Address: [address] [place] [phone] Performed By: #### 2 276-4, 3015-3, , 1988-03 #### [facility] CLIA [id number] [address] [place], [place] [id number] [place] WBC (Bld) [#/Vol] 11.37 10*3/uL High 3.70-11.00 [facility] Comment on above: Order Comment: Speci men Type: BLOOD SPECIMEN Ordering Facility: [facility] Address: [address] [place] [address] Performed By: #### 2 276-4, 3016-3, 67023-0, 1988-03 #### [facility] CLIA [id number] [address] [place] [address] [place] CRP SerPl-mCncon 02-08-2023 CRP [Mass/Vol] mg/L Normal <0.9 [facility] Comment on above: Order Comment: Speci men Type: BLOOD SPECIMEN Ordering Facility: [facility] Address: [address] [place] [address] Performed By: #### 2 276-4, 3015-3, , 1988-03 #### [facility] CLIA [id number] [address] [place] [address] Centromere Ab IF Ql (S)on Centromere Ab Qn (S) <0.2 Normal <1.0 [facility] Comment on above: Order Comment: Speci men Type: BLOOD SPECIMEN Ordering Facility: [facility] Address: [address] [place] [address] Result Comment: Anti -centromere antibody is used as in aid in diagnosis of systemic sclerosis. Clinical correlation is required. Test Methodology: Multiplex flow immunoassay. Performed By: #### 2 276-4, 3016-3, 21499-3, 1988-03 #### [facility] CLIA [id number] [address] [place] [address] [place] CENTROMERE AB QUAL Negative Normal Negative [facility] Comment on above: Order Comment: Speci men Type: BLOOD SPECIMEN Ordering Facility: [facility] Address: [address] [place] [address] Performed By: #### 2 276-4, 3016-3, 27270-2, 1988-03 #### [facility] CLIA [id number] [address] [place] [address] [place] Chromatin Ab Qnon 02-08-2023 CHROMATIN AB QUAL Negative Normal Negative [facility] Comment on above: Order Comment: Speci men Type: BLOOD SPECIMEN Ordering Facility: [facility] Address: [address] [place] [address] Performed By: #### 2 276-4, 301-3, 63575-5, 1988-03 #### [facility] CLIA [id number] [address] [place] [address] [place] Chromatin Ab SerPl-aCncon Chromatin Ab Qn <0.2 Normal <1.0 [facility] Comment on above: Order Comment: Speci men Type: BLOOD SPECIMEN Ordering Facility: [facility] Address: [address] [place] [address] Result Comment: Test Methodology: Multiplex flow immunoassay. Performed By: #### 2 276-4, 301-3, 93374-1, 1988-03 #### [facility] CLIA [id number] [address] [place] [address] [place] Comprehensive metabolic 2000 panelon 02-08-2023 Albumin [Mass/Vol] 4.4 g/dL Normal 3.9-4.9 [facility] Comment on above: Order Comment: Speci men Type: BLOOD SPECIMEN Ordering Facility: [facility] Address: [address] [place] [address] Performed By: #### 2 4323-8, 62580-0, 3024-7, 3053-6 #### [facility] CLIA [id number] [address] [place] [address] [place] ALP [Catalytic activity/Vol] 46 U/L Normal 34-123 [facility] Comment on above: Order Comment: Speci men Type: BLOOD SPECIMEN Ordering Facility: [facility] Address: [address] [place], [place] [address] Performed By: #### 2 4323-8, 32555-2, 3024-7, 3053-6 #### [facility] CLIA [id number] [address] [place] [address] [place] ALT [Catalytic activity/Vol] 23 U/L Normal 7-38 [facility] Comment on above: Order Comment: Speci men Type: BLOOD SPECIMEN Ordering Facility: [facility] Address: [address] [place] [address] Performed By: #### 2 4323-8, 08377-6, 3024-7, 3053-6 #### [facility] CLIA [id number] [address] [place] [address] [place] Anion gap [Moles/Vol] 12 mmol/L Normal 9-18 [facility] Comment on above: Order Comment: Speci men Type: BLOOD SPECIMEN Ordering Facility: [facility] Address: [address] [place] [address] Performed By: #### 2 4323-8, 14690-6, 3024-7, 3053-6 #### [facility] CLIA [id number] [address] [place] [address] [place] AST [Catalytic activity/Vol] 26 U/L Normal 13-35 [facility] Comment on above: Order Comment: Speci men Type: BLOOD SPECIMEN Ordering Facility: [facility] Address: [address] [place] [address] Performed By: #### 2 4323-8, 92676-9, 3024-7, 3053-6 #### [facility] CLIA [id number] [address] [place] [address] [place] Bilirubin [Mass/Vol] 0.4 mg/dL Normal 0.2-1.3 [facility] Comment on above: Order Comment: Speci men Type: BLOOD SPECIMEN Ordering Facility: [facility] Address: [address] [place], [place] [address] Performed By: #### 2 4323-8, 81044-3, 3024-7, 3053-6 #### [facility] CLIA [id number] [address] [place] [address] [place] Calcium [Mass/Vol] 10.2 mg/dL Normal 8.5-10.2 [facility] Comment on above: Order Comment: Speci men Type: BLOOD SPECIMEN Ordering Facility: [facility] Address: [address] [place], [place] [address] Performed By: #### 2 4323-8, 89187-6, 3024-7, 3053-6 #### [facility] CLIA [id number] [address] [place] [address] [place] Chloride [Moles/Vol] 104 mmol/L Normal 97-105 [facility] Comment on above: Order Comment: Speci men Type: BLOOD SPECIMEN Ordering Facility: [facility] Address: [address] [place] [address] Performed By: #### 2 4323-8, 39087-9, 3024-7, 3053-6 #### [facility] CLIA [id number] [address] [place] [address] [place] CO2 [Moles/Vol] 26 mmol/L Normal 22-30 [facility] Comment on above: Order Comment: Speci men Type: BLOOD SPECIMEN Ordering Facility: [facility] Address: [address] [place], [place] [address] Performed By: #### 2 4323-8, 64602-0, 3024-7, 3053-6 #### [facility] CLIA [id number] [address] [place] [address] [place] Creatinine [Mass/Vol] 0.92 mg/dL Normal 0.58-0.96 [facility] Comment on above: Order Comment: Speci men Type: BLOOD SPECIMEN Ordering Facility: [facility] Address: [address] [place] [phone] Performed By: #### 2 4323-8, 14500-9, 3024-7, 3053-6 #### [facility] CLIA [id number] [address] [place] [address] [place] ESTIMATED GLOMERULAR FILTRATION RATE 86 mL/min/1.73m??? Normal >=60 [facility] Comment on above: Order Comment: Bailee hoffman Type: BLOOD SPECIMEN Ordering Facility: [facility] Address: [address] [phone] Result Comment: Mitzy mated Glomerular Filtration Rate [...] actual GFR. Performed By: #### 2 4323-8, 48212-6, 3024-7, 3053-6 #### [facility] CLIA [id number] [facility] [place] [address] [place] Glucose [Mass/Vol] 95 mg/dL Normal 74-99 [facility] Comment on above: Order Comment: Bailee hoffman Type: BLOOD SPECIMEN Ordering Facility: [facility] Address: [address] [place] [address] Result Comment: The [place] [employer] (ADA) provides guidance for cutoff [...] Standards of Medical Care in Diabetes 2016, [place] [employer]. Diabetes Care. 2016.39(Suppl 1). Performed By: #### 2 4323-8, 38220-0, 3024-7, 3053-6 #### [facility] CLIA [id number] [address] [place] [address] [place] Potassium [Moles/Vol] 4.4 mmol/L Normal 3.7-5.1 [facility] Comment on above: Order Comment: Speci men Type: BLOOD SPECIMEN Ordering Facility: [facility] Address: [address] [place], [place] [address] Performed By: #### 2 4323-8, 72326-8, 3024-7, 3053-6 #### [facility] CLIA [id number] [address] [place] [address] [place] Protein [Mass/Vol] 7.4 g/dL Normal 6.3-8.0 [facility] Comment on above: Order Comment: Speci men Type: BLOOD SPECIMEN Ordering Facility: [facility] Address: [address] [place], [place] [address] Performed By: #### 2 4323-8, 51472-5, 3024-7, 3053-6 #### [facility] CLIA [id number] [address] [place] [address] [place] Sodium [Moles/Vol] 142 mmol/L Normal 136-144 [facility] Comment on above: Order Comment: Speci men Type: BLOOD SPECIMEN Ordering Facility: [facility] Address: [address] [place], [place] [phone] Performed By: #### 2 4323-8, 66995-9, 3024-7, 3053-6 #### [facility] CLIA [id number] [address] [place] [address] [place] Urea nitrogen [Mass/Vol] 11 mg/dL Normal 7-21 [facility] Comment on above: Order Comment: Speci men Type: BLOOD SPECIMEN Ordering Facility: [facility] Address: [address] [place], [place] [address] Performed By: #### 2 4323-8, 03730-4, 3024-7, 3053-6 #### [facility] CLIA [id number] [address] [place] [address] [place] Cyclic citrullinated peptide IgG Qnon 02-08-2023 CCP ANTIBODY IGG QUALITATIVE Negative Normal Negative [facility] Comment on above: Order Comment: Speci men Type: BLOOD SPECIMEN Ordering Facility: [facility] Address: [address] [place], [place] [address] Performed By: #### 2 276-4, 3015-3, , 1988-03 #### [facility] CLIA [id number] [address] [place] [address] [place] Jo1 Ab Ser-aCncon 2022 Anel-1 extractable nuclear Ab Qn (S) <0.2 Normal <1.0 [facility] Comment on above: Order Comment: Speci men Type: BLOOD SPECIMEN Ordering Facility: [facility] Address: [address] [place], [place] [address] Performed By: #### 2 276-4, 3015-3, , 1988-03 #### [facility] CLIA [id number] [address] [place] [address] [place] DIRECTOR SPECIALTY Ab Ser-aCncon 2022 Ribonucleoprotein extractable nuclear Ab Qn (S) <0.2 Normal <1.0 [facility] Comment on above: Order Comment: Speci men Type: BLOOD SPECIMEN Ordering Facility: [facility] Address: [address] [place] [address] Performed By: #### 2 276-4, 3015-3, , 1988-03 #### [facility] CLIA [id number] [address] [place] [address] [place] SM IgG Ser-aCncon 2022 Ramires extractable nuclear IgG Qn (S) <0.2 Normal <1.0 [facility] Comment on above: Order Comment: Speci men Type: BLOOD SPECIMEN Ordering Facility: [facility] Address: [address] [place] [address] Performed By: #### 2 276-4, 301-3, , 1988-03 #### [facility] CLIA [id number] [address] [place] [address] [place] SS-A Ab Ser-aCncon 02-08 Sjogrens syndrome-A extractable nuclear Ab Qn (S) <0.2 Normal <1.0 [facility] Comment on above: Order Comment: Speci men Type: BLOOD SPECIMEN Ordering Facility: [facility] Address: [address] [place] [address] Result Comment: Test Methodology: Multiplex flow immunoassay. Performed By: #### 2 276-4, 3016-01, , 1988-03 #### [facility] CLIA [id number] [address] [place] [address] [place] SS-B Ab Ser-aCncon 02-08 Sjogrens syndrome-B extractable nuclear Ab Qn (S) <0.2 Normal <1.0 [facility] Comment on above: Order Comment: Speci men Type: BLOOD SPECIMEN Ordering Facility: [facility] Address: [address] [place] [address] Result Comment: Anti -SSB (anti-La) antibody is used as an aid in diagnosis of a variety of systemic autoimmune diseases, especially for Sjogren's syndrome and systemic lupus erythematosus. Clinical correlation is required. Test Methodology: Multiplex flow immunoassay. Performed By: #### 2 276-4, 3, , 1988-03 #### [facility] CLIA [id number] [facility] [place] [address] [place] ESR Westergren method (Bld) [Velocity]on 02-08-2023 ESR (Bld) [Velocity] 8 mm/h Normal 0-20 [facility] Comment on above: Order Comment: Speci men Type: BLOOD SPECIMEN Ordering Facility: [facility] Address: [address] [place], [place] [address] Performed By: #### 2 276-4, 3016-3, 33215-6, 1988-03 #### [facility] CLIA [id number] [address] [place] [address] [place] Ferritin SerPl-mCncon 2022 Ferritin [Mass/Vol] 61.1 ng/mL Normal 14.7-205.1 [facility] Comment on above: Order Comment: Speci men Type: BLOOD SPECIMEN Ordering Facility: [facility] Address: [address] [place] [address] Performed By: #### 2 276-4, 3016-3, 32797-5, 1988-03 #### [facility] CLIA [id number] [address] [place] [address] [place] Iron and Iron binding capaci ty panelon 02-08-2023 Iron [Mass/Vol] 99 ug/dL Normal 41-186 [facility] Comment on above: Order Comment: Speci men Type: BLOOD SPECIMEN Ordering Facility: [facility] Address: [address] [place] [address] Performed By: #### 2 4323-8, 40833-3, 3024-7, 305-6 #### [facility] CLIA [id number] [address] [place] [address] [place] Iron binding capacity [Mass/Vol] 362 ug/dL Normal 232-386 [facility] Comment on above: Order Comment: Speci men Type: BLOOD SPECIMEN Ordering Facility: [facility] Address: [address] [place] [address] Performed By: #### 2 4323-8, 08006-4, 3024-7, 3053-6 #### [facility] CLIA [id number] [address] [place] [address] [place] Iron/TIBC [Molar ratio] 27.3 % Normal 15.0-57.0 [facility] Comment on above: Order Comment: Bailee hoffman Type: BLOOD SPECIMEN Ordering Facility: [facility] Address: [address] [place] [address] Performed By: #### 2 4323-8, 03036-6, 3024-7, 3053-6 #### [facility] CLIA [id number] [address] [place] [address] [place] Anel-1 extractable nuclear Ab Qn (S)on 02-08-2023 ANEL 1 ANTIBODY QUAL Negative Normal Negative [facility] Comment on above: Order Comment: Bailee hoffman Type: BLOOD SPECIMEN Ordering Facility: [facility] Address: [address] [place] [address] Result Comment: Anti -ANEL-1 antibody is used as an aid in diagnosis of polymyositis and dermatomyositis especially with pulmonary involvement. A negative result cannot rule out polymyositis or dermatomyositis. Clinical correlation is required. Test Methodology: Multiplex flow immunoassay. Performed By: #### 2 276-4, 3016-3, 94198-3, 1988-03 #### [facility] CLIA [id number] [address] [place] [address] [place] Nuclear Ab IA Ql (S)on 02-08 MARY BY EIA, QUAL Negative Normal Negative [facility] Comment on above: Order Comment: Specchris hoffman Type: BLOOD SPECIMEN Ordering Facility: [facility] Address: [address] [place] [address] Result Comment: The qualitative antinuclear antibody screen test performed using enzyme immunoassay including the following antigens: dsDNA, histones, SS-A, SS-B, Sm, Sm/DIRECTOR SPECIALTY, Scl-70, Anel-1, and centromeric antigens. Performed By: #### 2 276-4, 3016-3, 55658-8, 1988-03 #### [facility] CLIA [id number] [address] [place] [address] [place] Rheumatoid fact SerPl-aCncon 02-08-2023 Rheumatoid factor Qn [IU]/mL Normal <16 [facility] Comment on above: Order Comment: Speci dalton Type: BLOOD SPECIMEN Ordering Facility: [facility] Address: [address] [place] [address] Performed By: #### 2 276-4, 3016-3, 84871-4, 1988-03 #### [facility] CLIA [id number] [address] [place] [address] [place] Ribonucleoprotein extractabl e nuclear Ab Qn (S)on 02-08-2023 ANTI-DIRECTOR SPECIALTY QUAL Negative Normal Negative [facility] Comment on above: Order Comment: Bailee hoffman Type: BLOOD SPECIMEN Ordering Facility: [facility] Address: [address] [place] [address] Performed By: #### 2 276-4, 3016-3, , 1988-03 #### [facility] CLIA [id number] [address] [place] [address] [place] RIBOSOMAL DIRECTOR SPECIALTY QUAL Negative Normal Negative [facility] Comment on above: Order Comment: Bailee hoffman Type: BLOOD SPECIMEN Ordering Facility: [facility] Address: [address] [place] [address] Result Comment: Anti -Ribosomal RNA (Ribosomal P) antibody is used as an aid in diagnosis of systemic autoimmune diseases especially systemic lupus erythematosus and mixed connective tissue disease. Cross-reactivity with Anti-ramires antibody is not uncommon. Clinical correlation is required. Test Methodology: Multiplex flow immunoassay. Performed By: #### 2 276-4, 3016-3, 38936-5, 1988-03 #### [facility] CLIA [id number] [address] [place] [address] [place] SCL-70 extractable nuclear I gG IA Qn (S)on 02-08-2023 SCLERODERMA AB QUAL Negative Normal Negative [facility] Comment on above: Order Comment: Speci men Type: BLOOD SPECIMEN Ordering Facility: [facility] Address: [address] [address] Performed By: #### 2 276-4, 3015-3, , 1988-03 #### [facility] CLIA [id number] [address] [place] [address] [place] SCLERODERMA IGG AB <0.2 Normal <1.0 [facility] Comment on above: Order Comment: Speci men Type: BLOOD SPECIMEN Ordering Facility: [facility] Address: [address] [place] [address] Result Comment: Scl- 70/Scleroderma antibody test is used as an aid in diagnosis of systemic sclerosis especially the diffuse cutaneous form. A negative result cannot rule out systemic sclerosis. The final interpretation should consider clinical picture and other test results such as anti-centromere antibody. Test Methodology: Multiplex flow immunoassay. Performed By: #### 2 276-4, 3015-3, , 1988-03 #### [facility] CLIA [id number] [address] [place] [address] [place] Sjogrens syndrome-A extracta ble nuclear Ab Qn (S)on 02-08-2023 SSA ANTIBODY QUAL Negative Normal Negative [facility] Comment on above: Order Comment: Speci men Type: BLOOD SPECIMEN Ordering Facility: [facility] Address: [address] [address] Performed By: #### 2 276-4, 3015-3, , 1988-03 #### [facility] CLIA [id number] [address] [place] [address] [place] Sjogrens syndrome-B extracta ble nuclear Ab Qn (S)on 02-08-2023 SSB ANTIBODY QUAL Negative Normal Negative [facility] Comment on above: Order Comment: Speci men Type: BLOOD SPECIMEN Ordering Facility: [facility] Address: [address] Performed By: #### 2 276-4, 3015-3, , 1988-03 #### [facility] CLIA [id number] [address] [place] [address] [place] Ramires extractable nuclear Ig G Qn (S)on 02-08-2023 SM ANTIBODY QUAL Negative Normal Negative [facility] Comment on above: Order Comment: Speci dalton Type: BLOOD SPECIMEN Ordering Facility: [facility] Address: [address] [place] [address] Result Comment: Anti -Sm (Ramires) antibody is used as an aid in diagnosis of systemic lupus erythematosus and its presence is associated with renal disease. A negative result cannot rule out systemic lupus erythematosus. Clinical correlation is required. Test Methodology: Multiplex flow immunoassay. Performed By: #### 2 276-4, 3015-3, , 1988-03 #### [facility] CLIA [id number] [address] [place] [address] [place] T3 SerPl-mCncon 02-08-2023 T3 [Mass/Vol] 111 ng/dL Normal 79-165 [facility] Comment on above: Order Comment: Speci men Type: BLOOD SPECIMEN Ordering Facility: [facility] Address: [address] [place] [address] Performed By: #### 2 4323-8, 60692-8, 3024-7, 3053-6 #### [facility] CLIA [id number] [address] [place] [address] [place] T4 Free SerPl-mCncon 023 Free T4 [Mass/Vol] 1.0 ng/dL Normal 0.9-1.7 [facility] Comment on above: Order Comment: Speci men Type: BLOOD SPECIMEN Ordering Facility: [facility] Address: [address] [place] [address] Performed By: #### 2 4323-8, 15775-5, 3024-7, 3053-6 #### [facility] CLIA [id number] [address] [place] [address] OF AURE THYROID PEROXIDASE ANTIBODY BLOODon 02-08-2023 TPO Ab Qn [IU]/mL Normal <5.6 [facility] Comment on above: Order Comment: Bailee hoffman Type: BLOOD SPECIMEN Ordering Facility: [facility] Address: [address] [place] [address] Result Comment: Thyr oid Peroxidase Antibody test is used as an aid in diagnosis of autoimmune thyroid disease. Clinical correlation is required. Performed By: #### M ICRO #### [facility] CLIA [id number] [address] [place] [address] [place] TSH SerPl-aCncon 02-08-2023 TSH Qn 1.030 m[IU]/L Normal 0.270-4.200 [facility] Comment on above: Order Comment: Bailee hoffman Type: BLOOD SPECIMEN Ordering Facility: [facility] Address: [address] [place] [address] Result Comment: If t he patient is , TSH reference range varies by gestational period: First Trimester (weeks 9-12): 0.180-2.990 mIU/L Second Trimester: 0.110-3.980 mIU/L Third Trimester: 0.480-4.710 mIU/L Feliz Leblanc et al. A Practical Approach for the Verifications and Determination of Site- and Trimester-Specific Reference Intervals for Thyroid Function tests in . Thyroid, 2019:29:3:412-420. Pro E, et al. 2017 Guidelines of the [place] Thyroid Association for the Diagnosis and Management of Thyroid Disease during and the . Thyroid, 2017:27:3:315-389. Performed By: #### 2 276-4, 3016-3, 92690-1, 1987-5 #### [facility] CLIA [id number] [address] [place] [address] [place] Vit B12 SerPl-mCncon 023 Cobalamin (Vitamin B12) [Mass/Vol] 568 pg/mL Normal 232-1245 [facility] Comment on above: Order Comment: Bailee hoffman Type: BLOOD SPECIMEN Ordering Facility: [facility] Address: [address] [place] [address] Performed By: #### 2 276-4, 3016-3, 04002-8, 1988-03 #### [facility] CLIA [id number] [address] [place] [address] STATES OF AURE cCP IgG SerPl-aCncon 023 Cyclic citrullinated peptide IgG Qn <15 Normal <20 [facility] Comment on above: Order Comment: Speci men Type: BLOOD SPECIMEN Ordering Facility: [facility] Address: [address] [id number] Performed By: #### 2 276-4, 3016-3, 13136-4, 1988-03 #### [facility] CLIA [id number] [address] [place] [address] OF AURE CNOVon 01-26-2023 [facility] SUSANA MCCLAIN ([id number]) 1990 F Date Time Provider Department 01/26/23 1:40 PM MARCO ANTONIO COSTA During your visit today, we recorded the following information about you: Temperature Pulse Respiration Blood pressure 99.5 degrees 83/minute 16/minute 122/84 Weight 85.7 kg Marco Antonio Costa APRN.DESIGN PAINTER 01/26/2023 4:02 PM Signed Chief Complaint Patient presents with: Pain, Back: Lower back, Abcess drained in Er - October 2022 HPI Susana Mcclain is a 32 year old female who presents here today for Above Complaints.. Today: Had abscess drained that was right by her tailbone in ED at [facility] on 10/2022. Seems to come back [...] - CCP (more content not included)... Normal [facility] UA DIP, URINE (POC)on 2021 BILIRUBIN UA (POCT) Negative Negative [facility] CLARITY UA (POCT) Clear [facility] COLOR UA (POCT) Yellow [facility] GLUCOSE UA (POCT) Negative Negative mg/dL [facility] HEMOGLOBIN/BLOOD UA (POCT) Trace-lysed Abnormal Negative [facility] KETONE UA (POCT) Negative Negative mg/dL [facility] LEUKOCYTES UA (POCT) Small Abnormal Negative [facility] NITRITE UA (POCT) Negative Negative [facility] PH UA (POCT) 6.0 4.5 - 8.0 [facility] Protein Ql (U) Negative Negative mg/dL [facility] SPECIFIC GRAVITY UA (POCT) <=1.005 Abnormal 1.005 - 1.030 [facility] UROBILINOGEN UA (POCT) 0.2 E.U./dL Normal E.U./dL [facility] US THYROID/PARATHYROIDon [facility] Clinical Summary: Liborio marrero 03-14-2022 [facility] OP Visit Invalid Interpretation Code [facility] Work Phone: Clinical Summary[facility]2022 [facility] OP Visit Invalid Interpretation Code [facility] Work Phone: ANES Daquan 10-15-2018 ANES POST HNO ID: [id number] Author: Alec Harris Service: Anesthesiology Author Type: [...] 2018 TIME: 3:44 PM PAGER/CONTACT #: anesthesia [facility] ANES PREOPon 10-15-2018 ANES PREOP HNO ID: [id number] Author: Chas Walsh Service: Anesthesiology Author Type: [...] October 15, 2018 TIME: 9:53 AM CSN: [id number] [facility] BRIEF OP NOTon 10-15-2018 BRIEF OP NOT HNO ID: [id number] Author: Pati Tamayo Service: Vascular Surgery Author Type: Physician Type: Brief Op Note Filed: 10/15/2018 2:15 PM Note Text: BRIEF OP NOTE LOG ID: [id number] Surgery/Procedure Date: 10/15/2018 Incision/Procedure Start Time: 12:10 PM Incision Close/Procedure End Time: 1:50 PM Surgeon(s)/Procedura list(s) and Transition Mgr(s): Surgeon(s) and Role: * Pati Tamayo - [...] 15, 2018 TIME: 2:14 PM PAGER/CONTACT #: [facility] OPERATIVE NOon 10-15-2018 OPERATIVE NO HNO ID: [id number] Author: Pati Tamayo Service: Vascular Surgery Author Type: Physician Type: Operative Report Filed: 11/04/2018 1:40 PM Note Text: [facility] - Operative Report SUSANA MCCLAIN : 1990 AGE: 28. SEX: F PATIENT TYPE: A HOSP SVC: ALESSANDRO LOCATION: [facility] ATTENDING PHYSICIAN: Pati Tamayo D.O. CSN NUMBER: [id number] DATE OF SURGERY/PROCEDURE: 10/15/2018 INCISION/PROCEDURE START TIME: 12:10. INCISION CLOSE/PROCEDURE END TIME: 13:50. PREOPERATIVE DIAGNOSIS: Symptomatic varicose veins. POSTOPERATIVE DIAGNOSIS: Symptomatic varicose veins. SURGEON: Pati Tamayo D.O. MANAGER RESIDENTIAL: Roz Aldridge. SURGERY/PROCEDURE: Right leg stab phlebectomy, [...] with the assistance of Roz Aldridge. Julienne Earl:[id number] /[id number] [facility] PT EDon 10-15-2018 PT ED HNO ID: [id number] Author: Micaela (Rn) JOE Geronimo Service: Nursing [...] Signed By: Micaela Geronimo RN In Department: [facility] SURGERY [facility] PT ED HNO ID: [id number] Author: Porsha (Rn) Felicia RN Service: (none) [...] Signed By: Porsha Tolentino RN In Department: [facility] SURGERY [facility] SURGICAL PATHOLOGYon 018 SURGICAL PATHOLOGY Specimen originated from [facility] Specimen #: [id number] Submitting Physician: PATI TAMAYO FINAL DIAGNOSIS Right [...] thrombi are identified. No calcification is present. Wastewater Design Engineer sections are submitted in one cassette. Gross examination performed at [facility], [facility] [place] [address] LAP POLISHER/lbk 10/15/2018 Date of Report: 10/16/2018 Date of Procedure: 10/15/2018 Date of Receipt: 10/15/2018 Submitted by: PATI TAMAYO Location: [place] Diagnostic interpretation performed at [facility], [facility] [address]. [facility] Comment on above: Performed By: #### P ATHS #### [employer] [address] [id number] [phone] HOSPon 09-03-2018 HOSP Patient:Susana Mcclain MRN: Height:5' [...] for the following basenames: K,HCT Progress Notes ([facility]): Sylvia Navarro APRN.CNP 10/02/2018 10:36 AM Signed This note was created using NoteWriter. Subjective Susana Mcclain is a 28 year old female. The history is provided by the patient. No bill checker was used. Neck Pain This is a [...] and exercise - f/u PRN Sylvia Navarro APRN.DESIGN PAINTER [facility] Vital Signs Date Time Vital Sign Value Performing Clinician Facility 12-15-2024 08:00-0500 Body height 175.3 cm Angel Harris MD Work Phone: [phone] [place] [address] 12-15-2024 08:00-0500 Body mass index (BMI) [Ratio] 27.76 kg/m2 Angel Harris MD Work Phone: [phone] [address] 12-15-2024 08:00-0500 Body weight 85.28 kg Angel Harris MD Work Phone: [phone] [address] 12-15-2024 08:00-0500 Diastolic blood pressure 62 mm[Hg] Angel Harris MD Work Phone: [phone] [address] 12-15-2024 08:00-0500 Heart rate 58 /min Angel Harris MD Work Phone: 5([phone])[phone] [address] 12-15-2024 08:00-0500 SaO2% (BldA) [Mass fraction] 98 % Angel Harris MD Work Phone: [phone] [address] 12-15-2024 08:00-0500 Systolic blood pressure 112 mm[Hg] Angel Harris MD Work Phone: [facility] 01-20-2024 11:53-0500 Body temperature 98.6 [degF] Gloria Athy PA-C Work Phone: [facility] 01-20-2024 11:53-0500 Body weight 88.36 kg Gloria Athy PA-C Work Phone: [facility] 01-20-2024 11:53-0500 Diastolic blood pressure 80 mm[Hg] Gloria Athy PA-C Work Phone: [facility] 01-20-2024 11:53-0500 Heart rate 100 /min Gloria Athy PA-C Work Phone: [facility] 01-20-2024 11:53-0500 Respiratory rate 21 /min Golria Athy PA-C Work Phone: [facility] 01-20-2024 11:53-0500 SaO2% (BldA) [Mass fraction] 98 % Gloria Escaleray PA-C Work Phone: [facility] 01-20-2024 11:53-0500 Systolic blood pressure 122 mm[Hg] Gloria Escaleray PA-C Work Phone: [facility] 01-26-2023 13:47-0500 Body temperature 99.5 [degF] Marco Antonio Julissa CAGER OPERATOR.DESIGN PAINTER Work Phone: [facility] 01-26-2023 13:47-0500 Body weight 85.73 kg Marco Antonio Julissa CAGER OPERATOR.DESIGN PAINTER Work Phone: [facility] 01-26-2023 13:47-0500 Diastolic blood pressure 84 mm[Hg] Marco Antonio Julissa CAGER OPERATOR.DESIGN PAINTER Work Phone: [facility] 01-26-2023 13:47-0500 Heart rate 83 /min Marco Antonio Julissa CAGER OPERATOR.DESIGN PAINTER Work Phone: [facility] 01-26-2023 13:47-0500 Respiratory rate 16 /min Marco Antonio Julissa CAGER OPERATOR.DESIGN PAINTER Work Phone: [facility] 01-26-2023 13:47-0500 SaO2% (BldA) [Mass fraction] 98 % Marco Antonio Julissa CAGER OPERATOR.DESIGN PAINTER Work Phone: [facility] 01-26-2023 13:47-0500 Systolic blood pressure 122 mm[Hg] Marco Antonio Julissa CAGER OPERATOR.DESIGN PAINTER Work Phone: [facility] 10-23-2022 11:02-0500 Body temperature 99.61 [degF] Chani Bogner PA-C Work Phone: [facility] 10-23-2022 11:02-0500 Body weight 84.91 kg Chani Bogner PA-C Work Phone: [facility] 10-23-2022 11:02-0500 Diastolic blood pressure 86 mm[Hg] Chani Bogner PA-C Work Phone: [facility] 10-23-2022 11:02-0500 Heart rate 84 /min Chani Bogner PA-C Work Phone: [facility] 10-23-2022 11:02-0500 Respiratory rate 20 /min Chani Bogner PA-C Work Phone: [facility] 10-23-2022 11:02-0500 SaO2% (BldA) [Mass fraction] 99 % Chani Bogner PA-C Work Phone: [facility] 10-23-2022 11:02-0500 Systolic blood pressure 124 mm[Hg] Chani Bogner PA-C Work Phone: [facility] 09-29-2022 11:08-0500 Body temperature 99 [degF] Divina Levi APRN.DESIGN PAINTER Work Phone: [facility] 09-29-2022 11:08-0500 Body weight 85.55 kg Divina Levi APRN.DESIGN PAINTER Work Phone: [facility] 09-29-2022 11:08-0500 Diastolic blood pressure 78 mm[Hg] Divina Levi APRN.DESIGN PAINTER Work Phone: [facility] 09-29-2022 11:08-0500 Heart rate 90 /min Divina Levi APRN.DESIGN PAINTER Work Phone: [facility] 09-29-2022 11:08-0500 Respiratory rate 16 /min Divina Levi APRN.DESIGN PAINTER Work Phone: [facility] 09-29-2022 11:08-0500 SaO2% (BldA) [Mass fraction] 99 % Divina Levi APRN.DESIGN PAINTER Work Phone: [facility] 09-29-2022 11:08-0500 Systolic blood pressure 138 mm[Hg] Divina Levi APRN.DESIGN PAINTER Work Phone: [facility] 07-03-2022 15:13-0400 Body weight 83.92 kg Thuy Bonilla CAGER OPERATOR.DESIGN PAINTER Work Phone: [facility] 07-03-2022 15:13-0400 Diastolic blood pressure 78 mm[Hg] Thuy Zurawick CAGER OPERATOR.DESIGN PAINTER Work Phone: [facility] 07-03-2022 15:13-0400 Heart rate 82 /min Thuy Zurawick CAGER OPERATOR.DESIGN PAINTER Work Phone: [facility] 07-03-2022 15:13-0400 Respiratory rate 16 /min Thuy Zurawick CAGER OPERATOR.DESIGN PAINTER Work Phone: [facility] 07-03-2022 15:13-0400 Systolic blood pressure 122 mm[Hg] Thuy Zurawick CAGER OPERATOR.DESIGN PAINTER Work Phone: [facility] 06-07-2022 10:51-0400 Body height 178 cm Marco Antonio Julissa CAGER OPERATOR.DESIGN PAINTER Work Phone: [facility] 06-07-2022 10:51-0400 Body weight 85.19 kg Marco Antonio Julissa CAGER OPERATOR.DESIGN PAINTER Work Phone: [facility] 06-07-2022 10:51-0400 Diastolic blood pressure 78 mm[Hg] Marco Antonio Julissa CAGER OPERATOR.DESIGN PAINTER Work Phone: [facility] 06-07-2022 10:51-0400 Heart rate 107 /min Marco Antonio Julissa CAGER OPERATOR.DESIGN PAINTER Work Phone: [facility] 06-07-2022 10:51-0400 SaO2% (BldA) [Mass fraction] 97 % Marco Antonio Julissa CAGER OPERATOR.DESIGN PAINTER Work Phone: [facility] 06-07-2022 10:51-0400 Systolic blood pressure 118 mm[Hg] Marco Antonio Julissa CAGER OPERATOR.DESIGN PAINTER Work Phone: [facility] NEGATED: Highlighted [id number] 08:19-0400 Body height 175.26 cm Yasmin Darin AT [facility] Work Phone: NEGATED: Highlighted [id number] 08:19-0400 Body height 175 cm Yasmin Darin AT [facility] Work Phone: NEGATED: Highlighted [id number] 08:19-0400 Body mass index (BMI) [Ratio] 28.9 kg/m2 Yasmin Darin AT [facility] Work Phone: NEGATED: Highlighted [id number] 08:19-0400 Body weight 88.45 kg Yasmin Darin AT [facility] Work Phone: NEGATED: Highlighted [id number] 08:19-0400 Body weight 89 kg Yasmin Darin AT [facility] Work Phone: NEGATED: Highlighted [id number] 12:17-0500 Body height 175.26 cm [facility] Work Phone: NEGATED: Highlighted [id number] 12:17-0500 Body height 175 cm [facility] Work Phone: NEGATED: Highlighted [id number] 12:17-0500 Body mass index (BMI) [Ratio] 28.9 kg/m2 [facility] Work Phone: NEGATED: Highlighted [id number] 12:17-0500 Body weight 88.45 kg [facility] Work Phone: NEGATED: Highlighted [id number] 12:17-0500 Body weight 89 kg [facility] Work Phone: Encounters Encounter Date Encounter Type Care Provider Facility Start: 05-20-2025 Encounter for other preprocedural examination Tracey Ryan [facility] Start: 05-18-2025 End: 05-18-2025 ambulatory Yasmine Beavers Facility:[facility] Start: 05-18-2025 End: 05-18-2025 ambulatory Yasmine Beavers Facility:[facility] Start: 05-05-2025 End: 05-05-2025 ambulatory Yasmine Beavers Facility:[facility] Start: 04-24-2025 ambulatory Rohit Conteh [facility] Start: 04-24-2025 End: 04-24-2025 ambulatory Yasmine Beavers Facility:[facility] Start: 12-25-2024 ambulatory Angel Harris Facility :[facility] Start: 12-25-2024 End: 12-25-2024 ambulatory Yasmine Beavers Facility:[facility] Start: 12-15-2024 End: 12-15-2024 Office outpatient new 30 minutes Angel Harris MD Work Phone: [facility] Comment on above: Palpitations (Primar y Dx); Precordial chest pain; Shortness of breath; Tobacco use Start: 12-15-2024 ambulatory YASMINE BEAVERS Facility: [facility] Start: 11-28-2024 End: 11-28-2024 ambulatory Yasmine Beavers Facility:[facility] Start: 11-07-2024 End: 11-07-2024 ambulatory Yasmine Beavers Facility:[facility] Start: 10-21-2024 End: 10-21-2024 ambulatory Yasmine Beavers Facility:[facility] Start: 10-01-2024 End: 10-01-2024 ambulatory Yasmine Beavers Facility:[facility] Start: 09-16-2024 End: 09-16-2024 ambulatory Yasmine Beavers Facility:[facility] Start: 08-22-2024 End: 08-22-2024 ambulatory Yasmine Beavers Facility:[facility] Start: 07-28-2024 ambulatory Yasmine Beavers Facilit y:[facility] Start: 06-11-2024 ambulatory Rohit Conteh Facility:[facility] Start: 06-11-2024 End: 06-11-2024 ambulatory Yasmine Beavers Facility:[facility] Start: 05-23-2024 End: 05-23-2024 Emergency department patient visit Yasmine Beavers Facility:[facility] Start: 04-23-2024 End: 04-23-2024 Emergency department patient visit DIANE TAVAREZ [facility] Start: 01-22-2024 Telephone encounter Divina Gurmeet CAGER OPERATOR.DESIGN PAINTER Work Phone: [facility] Comment on above: Results; Orders Start: 01-20-2024 End: 01-20-2024 ambulatory ROBER SABA Facility:[facility] Start: 01-20-2024 End: 01-20-2024 Patient encounter procedure Gloria Barrera PA-C Work Phone: [facility] Comment on above: Surgical wound infec tion (Primary Dx) Start: 12-26-2023 ambulatory FLOR MAST CAGER OPERATOR-DESIGN PAINTER Fa cility:[facility] Start: 09-14-2023 End: 09-19-2023 ambulatory FLOR MAST CAGER OPERATOR-DESIGN PAINTER Facility:[facility] Start: 06-28-2023 End: 06-28-2023 [facility] Start: 03-05-2023 Refill Deneen lindsay CAGER OPERATOR.DESIGN PAINTER Work Phone: Psychiatry Comment on above: Refill Request Start: 02-09-2023 Telephone [address] Marco Antonio [facility] CAGER OPERATOR.DESIGN PAINTER Work Phone: [facility] Comment on above: Results Start: 02-08-2023 End: 02-09-2023 ambulatory MARCO ANTONIO JULISSA Facility:[facility] Start: 02-08-2023 Encounter for genera l adult medical examination without abnormal findings ROBER HOWARDON [facility] Start: 02-05-2023 End: 02-06-2023 ambulatory DENEEN ROLON Facility:[facility] Start: 02-05-2023 End: 02-05-2023 ambulatory Deneen Rolon CAGER OPERATOR.DESIGN PAINTER Work Phone: Psychiatry Comment on above: NO SHOW (Primary Dx) Start: 02-05-2023 End: 02-05-2023 Telemedicine consultation with patient Deneen Rolon CAGER OPERATOR.DESIGN PAINTER Work Phone: [facility] Start: 01-26-2023 End: 01-26-2023 ambulatory ROBER SABA Facility:[facility] Start: 01-26-2023 End: 01-26-2023 Patient encounter procedure Marco Antonio Julissa ANDRADE.DESIGN PAINTER Work Phone: [facility] Comment on above: Cyst near tailbone ( Primary Dx); Myalgia; Arthralgia, unspecified joint; Sensation of foreign body in throat; Well adult exam; Elevated serum creatinine; Vitamin D deficiency; Screening for diabetes mellitus; Encounter for vitamin deficiency screening; Screening for thyroid disorder Start: 01-26-2023 End: 01-26-2023 Patient encounter status Marco Antonio Costa LUPE.DESIGN PAINTER Work Phone: [facility] Start: 12-18-2022 End: 12-18-2022 [facility] Deneenchris Rolon APRN.DESIGN PAINTER Work Phone: Psychiatry Comment on above: Generalized anxiety disorder (Primary Dx); Bipolar 1 disorder, depressed, moderate (HCC); History of attention deficit hyperactivity disorder (ADHD); History of posttraumatic stress disorder (PTSD) Start: 11-14-2022 End: 11-14-2022 [facility] ralali Deneen Rolon APRN.DESIGN PAINTER Work Phone: Psychiatry Comment on above: 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); Generalized anxiety disorder; History of attention deficit hyperactivity disorder (ADHD) Start: 10-23-2022 ambulatory Rober troy DO Work Phone: [facility] Comment on above: Nasal Congestion; Co ugh Start: 10-23-2022 Telephone encounter Rober evans DO Work Phone: [facility] Comment on above: Migraine; Fever Start: 10-23-2022 End: 10-23-2022 Office outpatient visit 15 minutes Chani Vaughn PA-C Work Phone: [facility] Comment on above: Acute cough (Primary Dx); Nasal congestion Start: 10-13-2022 End: 10-13-2022 [facility] Deneen Rolon APRN.DESIGN PAINTER Work Phone: Psychiatry Comment on above: 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); History of posttraumatic stress disorder (PTSD) Start: 09-29-2022 End: 09-29-2022 Patient encounter procedure Divina Levi APRN.DESIGN PAINTER Work Phone: [facility] Comment on above: Urinary frequency (P rimary Dx); SOB (shortness of breath) Start: 07-03-2022 End: 07-03-2022 Patient encounter procedure Thuy Bonilla CAGER OPERATOR.DESIGN PAINTER Work Phone: [facility] Comment on above: Bipolar disorder, in partial remission, most recent episode depressed (HCC) (Primary Dx); Chronic insomnia; ALFREDO (generalized anxiety disorder) Start: 07-03-2022 Telephone encounter Amie PIERSONW Work Phone: Psychology Comment on above: outreach Start: 06-23-2022 Telephone encounter Rober miltonrob DO Work Phone: [facility] [place] Comment on above: Patient Update Start: 06-20-2022 ambulatory Rober troy DO Work Phone: [facility] [place] Comment on above: Er visit Start: 06-19-2022 Telephone encounter Marco Antonio Cheema APRN.DESIGN PAINTER Work Phone: [facility] [place] Comment on above: Opened In Error Start: 06-19-2022 End: 06-19-2022 [facility] Work Phone: Cat Scan Comment on above: Lung nodules [R91.8] Start: 06-14-2022 End: 06-14-2022 Subsequent hospital visit by physician [facility] Work Phone: Radiology Comment on above: Dysphagia, unspecifi ed type [R13.10] Start: 06-07-2022 End: 06-07-2022 Patient encounter procedure Marco Antonio Costa APRN.DESIGN PAINTER Work Phone: [facility] [place] Comment on [...] 06-07-2022 Patient encounter status Marco Antonio Julissa CAGER OPERATOR.DESIGN PAINTER Work Phone: [facility] [place] Start: 05-31-2022 End: 05-31-2022 Patient encounter procedure Zeny Sher CAGER OPERATOR.DESIGN PAINTER Work Phone: [facility] Comment on above: Pilonidal abscess of cleft (Primary Dx) Start: 05-31-2022 ambulatory Rober Mckeon son DO Work Phone: [facility] [place] Comment on above: LESION, SKIN Start: 03-18-2022 ambulatory Cici Briones RN N [employer]AVEN [employer]INT DEVELOPER Comment on above: Covid19 Concern Start: 03-18-2022 Distance Health (Vis it Summary) [facility] Provider External-NonCCF Comment on above: Acute sinusitis, uns pecified - Diarrhea, unspecified - Nausea with vomiting, unspecified Start: 03-18-2022 External Contact [place] [facility] Provi abhi EXTERNAL-NON [facility] Start: 01-27-2022 End: 01-27-2022 Pt evaluation Andry Rivera MD Work Phone: [facility] Orthopa[facility] Work Phone: Procedures Date Procedure Procedure Detail Performing Clinician Start: 09-29-2022 Urnls dip stick/tabl et rgnt auto w/o microscopy Boaz Matute MD Work Phone: Start: 06-19-2022 Ct thorax w/o contra st material Marco Antonio Costa CAGER OPERATOR.DESIGN PAINTER Work Phone: Start: 06-14-2022 Us soft tissue head & neck real time imge docm Marco Antonio Costa CAGER OPERATOR.DESIGN PAINTER Work Phone: Start: 03-14-2022 End: 03-14-2022 BP [...] 01-27-2022 End: 01-27-2022 Documentation of current medications [facility] Plan of Treatment Date Care Activity Detail Author Start: 05-17-2031 Tetanus vaccination TETANUS [facility] Start: 05-17-2031 Urine microalbumin profile DTaP,Tdap,Td Vaccine (8 - Td or Tdap) [facility] Start: 02-19-2027 Urine microalbumin profile DTAP,TDAP,TD (2 - Td or Tdap) [facility] Start: 06-02-2025 ambulatory Ambulatory Facility:[facility] Start: 07-20-2024 COVID-19 VACCINE () COVID-19 VACCINE () [facility] Start: 01-20-2024 End: 04-20-2024 Bacteria identified in Wound by Culture ABSCESS AND WOUND CULTURE WITH GRAM STAIN Microbiology Routine Surgical wound infection Expected: 01/20/2024, Expires: 04/20/2024 [facility] Work Phone: Comment on above: Expected: 01/20/2024, Expires: 4 Start: 11-19-2023 Depression Assessment Depression Assessment [facility] Start: 07-20-2023 Covid-19 Vaccine () Covid-19 Vaccine () [facility] Start: 07-20-2023 Influenza vaccination Influenza Vaccine (#1) [facility] Start: 01-26-2023 End: 03-28-2023 25-hydroxyvitamin D3 [Mass/volume] in Serum or Plasma VITAMIN D 25 HYDROXY Lab Routine Vitamin D deficiency Expected: 01/26/2023, Expires: 03/28/2023 [facility] Work Phone: Comment on above: Expected: 01/26/2023, Expires: 3 Start: 01-26-2023 End: 03-28-2023 C reactive protein [Mass/volume] in Serum or Plasma C-REACTIVE PROTEIN (CRP) Lab Routine Well adult exam Myalgia Arthralgia, unspecified joint Expected: 01/26/2023, Expires: 03/28/2023 [facility] Work Phone: Comment on above: Expected: 01/26/2023, Expires: 3 Start: 01-26-2023 End: 03-28-2023 CBC panel - Blood by Automated count CBC Lab Routine Screening for diabetes mellitus Well adult exam Myalgia Arthralgia, unspecified joint Expected: 01/26/2023, Expires: 03/28/2023 [facility] Work Phone: Comment on above: Expected: 01/26/2023, Expires: 3 Start: 01-26-2023 End: 03-28-2023 Cobalamin (Vitamin B12) [Mass/volume] in Serum or Plasma VITAMIN B12 BLOOD Lab Routine Vitamin D deficiency Encounter for vitamin deficiency screening Expected: 01/26/2023, Expires: 03/28/2023 [facility] Work Phone: Comment on above: Expected: 01/26/2023, Expires: 3 Start: 01-26-2023 End: 03-28-2023 Comprehensive metabolic 2000 panel - Serum or Plasma COMP METABOLIC PANEL Lab Routine Screening for diabetes mellitus Elevated serum creatinine Well adult exam Myalgia Arthralgia, unspecified joint Expected: 01/26/2023, Expires: 03/28/2023 [facility] Work Phone: Comment on above: Expected: 01/26/2023, Expires: 3 Start: 01-26-2023 End: 03-28-2023 Cyclic citrullinated peptide IgG Ab [Units/volume] in Serum or Plasma CCP ANTIBODY IGG Lab Routine Well adult exam Myalgia Arthralgia, unspecified joint Expected: 01/26/2023, Expires: 03/28/2023 [facility] Work Phone: Comment on above: Expected: 01/26/2023, Expires: 3 Start: 01-26-2023 End: 03-28-2023 Erythrocyte sedimentation rate SED RATE WESTERGREN Lab Routine Well adult exam Myalgia Arthralgia, unspecified joint Expected: 01/26/2023, Expires: 03/28/2023 [facility] Work Phone: Comment on above: Expected: 01/26/2023, Expires: 3 Start: 01-26-2023 End: 03-28-2023 Extractable nuclear Ab panel - Serum ANTI MARIPOSA ID Lab Routine Well adult exam Myalgia Arthralgia, unspecified joint Expected: 01/26/2023, Expires: 03/28/2023 [facility] Work Phone: Comment on above: Expected: 01/26/2023, Expires: 3 Start: 01-26-2023 End: 03-28-2023 Ferritin [Mass/volume] in Serum or Plasma FERRITIN BLD Lab Routine Well adult exam Myalgia Arthralgia, unspecified joint Expected: 01/26/2023, Expires: 03/28/2023 [facility] Work Phone: Comment on above: Expected: 01/26/2023, Expires: 3 Start: 01-26-2023 End: 03-28-2023 Iron and Iron binding capacity panel - Serum or Plasma IRON + TIBC Lab Routine Well adult exam Myalgia Arthralgia, unspecified joint Expected: 01/26/2023, Expires: 03/28/2023 [facility] Work Phone: Comment on above: Expected: 01/26/2023, Expires: 3 Start: 01-26-2023 End: 03-28-2023 Nuclear Ab [Presence] in Serum by Immunoassay MARY BLOOD Lab Routine Well adult exam Myalgia Arthralgia, unspecified joint Expected: 01/26/2023, Expires: 03/28/2023 [facility] Work Phone: Comment on above: Expected: 01/26/2023, Expires: 3 Start: 01-26-2023 End: 03-28-2023 Rheumatoid factor [Units/volume] in Serum or Plasma RHEUMATOID FACTOR BL Lab Routine Well adult exam Myalgia Arthralgia, unspecified joint Expected: 01/26/2023, Expires: 03/28/2023 [facility] Work Phone: Comment on above: Expected: 01/26/2023, Expires: 3 Start: 01-26-2023 End: 03-28-2023 THYROID PEROXIDASE ANTIBODY BLOOD THYROID PEROXIDASE ANTIBODY BLOOD Lab Routine Well adult exam Screening for thyroid disorder Myalgia Arthralgia, unspecified joint Expected: 01/26/2023, Expires: 03/28/2023 [facility] Work Phone: Comment on above: Expected: 01/26/2023, Expires: 3 Start: 01-26-2023 End: 03-28-2023 Thyrotropin [Units/volume] in Serum or Plasma TSH BLD Lab Routine Well adult exam Screening for thyroid disorder Myalgia Arthralgia, unspecified joint Expected: 01/26/2023, Expires: 03/28/2023 [facility] Work Phone: Comment on above: Expected: 01/26/2023, Expires: 3 Start: 01-26-2023 End: 03-28-2023 Thyroxine (T4) free [Mass/volume] in Serum or Plasma T4 FREE/FREE THYROX Lab Routine Well adult exam Screening for thyroid disorder Myalgia Arthralgia, unspecified joint Expected: 01/26/2023, Expires: 03/28/2023 [facility] Work Phone: Comment on above: Expected: 01/26/2023, Expires: 3 Start: 01-26-2023 End: 03-28-2023 Triiodothyronine (T3) [Mass/volume] in Serum or Plasma T3 BLD Lab Routine Well adult exam Screening for thyroid disorder Myalgia Arthralgia, unspecified joint Expected: 01/26/2023, Expires: 03/28/2023 [facility] Work Phone: Comment on above: Expected: 01/26/2023, Expires: 3 Start: 11-19-2022 DEPRESSION ASSESSMENT DEPRESSION ASSESSMENT [facility] Start: 07-20-2022 Influenza vaccination INFLUENZA (#1) [facility] Start: 06-07-2022 End: 08-07-2022 25-hydroxyvitamin D3 [Mass/volume] in Serum or Plasma VITAMIN D 25 HYDROXY Lab Routine Well adult exam Encounter for vitamin deficiency screening Expected: 06/07/2022, Expires: 08/07/2022 [facility] Work Phone: Comment on above: Expected: 06/07/2022, Expires: 2 Start: 06-07-2022 End: 08-07-2022 CBC panel - Blood by Automated count CBC Lab Routine Well adult exam Screening for diabetes mellitus Expected: 06/07/2022, Expires: 08/07/2022 [facility] Work Phone: Comment on above: Expected: 06/07/2022, Expires: 2 Start: 06-07-2022 End: 08-07-2022 Cobalamin (Vitamin B12) [Mass/volume] in Serum or Plasma VITAMIN B12 BLOOD Lab Routine Well adult exam Encounter for vitamin deficiency screening Expected: 06/07/2022, Expires: 08/07/2022 [facility] Work Phone: Comment on above: Expected: 06/07/2022, Expires: 2 Start: 06-07-2022 End: 08-07-2022 Comprehensive metabolic 2000 panel - Serum or Plasma COMP METABOLIC PANEL Lab Routine Well adult exam Screening for diabetes mellitus Expected: 06/07/2022, Expires: 08/07/2022 [facility] Work Phone: Comment on above: Expected: 06/07/2022, Expires: 2 Start: 06-07-2022 End: 08-07-2022 Ferritin [Mass/volume] in Serum or Plasma FERRITIN BLD Lab Routine Chronic insomnia Well adult exam Expected: 06/07/2022, Expires: 08/07/2022 [facility] Work Phone: Comment on above: Expected: 06/07/2022, Expires: 2 Start: 06-07-2022 End: 08-07-2022 Hemoglobin A1c in Blood HGB A1C Lab Routine Well adult exam Screening for diabetes mellitus Expected: 06/07/2022, Expires: 08/07/2022 [facility] Work Phone: Comment on above: Expected: 06/07/2022, Expires: 2 Start: 06-07-2022 End: 08-07-2022 Iron and Iron binding capacity panel - Serum or Plasma IRON + TIBC Lab Routine Chronic insomnia Well adult exam Expected: 06/07/2022, Expires: 08/07/2022 [facility] Work Phone: Comment on above: Expected: 06/07/2022, Expires: 2 Start: 06-07-2022 End: 08-07-2022 Lipid 1996 panel - Serum or Plasma LIPID PANEL BASIC Lab Routine Well adult exam Screening for diabetes mellitus Screening for lipid disorders Expected: 06/07/2022, Expires: 08/07/2022 [facility] Work Phone: Comment on above: Expected: 06/07/2022, Expires: 2 Start: 06-07-2022 End: 08-07-2022 Thyroglobulin and Thyrogobulin Ab panel - Serum or Plasma THYROGLOBULIN BLD Lab Routine Well adult exam Screening for thyroid disorder Sensation of foreign body in throat Expected: 06/07/2022, Expires: 08/07/2022 [facility] Work Phone: Comment on above: Expected: 06/07/2022, Expires: 2 Start: 06-07-2022 End: 08-07-2022 THYROID PEROXIDASE ANTIBODY BLOOD THYROID PEROXIDASE ANTIBODY BLOOD Lab Routine Well adult exam Screening for thyroid disorder Sensation of foreign body in throat Expected: 06/07/2022, Expires: 08/07/2022 [facility] Work Phone: Comment on above: Expected: 06/07/2022, Expires: 2 Start: 06-07-2022 End: 08-07-2022 Thyrotropin [Units/volume] in Serum or Plasma TSH BLD Lab Routine Well adult exam Screening for diabetes mellitus Screening for thyroid disorder Expected: 06/07/2022, Expires: 08/07/2022 [facility] Work Phone: Comment on above: Expected: 06/07/2022, Expires: 2 Start: 06-07-2022 End: 08-07-2022 Thyroxine (T4) free [Mass/volume] in Serum or Plasma T4 FREE/FREE THYROX Lab Routine Well adult exam Screening for thyroid disorder Sensation of foreign body in throat Expected: 06/07/2022, Expires: 08/07/2022 [facility] Work Phone: Comment on above: Expected: 06/07/2022, Expires: 2 Start: 06-07-2022 End: 08-07-2022 Triiodothyronine (T3) [Mass/volume] in Serum or Plasma T3 BLD Lab Routine Well adult exam Screening for thyroid disorder Sensation of foreign body in throat Expected: 06/07/2022, Expires: 08/07/2022 [facility] Work Phone: Comment on above: Expected: 06/07/2022, Expires: 2 Start: 05-16-2022 End: 05-16-2022 Patient encounter procedure Appointment [facility] Work Phone: Start: 04-07-2022 COVID-19 VACCINE (3 - Booster for Pfizer series) COVID-19 VACCINE (3 - Booster for Pfizer series) [facility] Start: 03-14-2022 End: 03-14-2022 Patient encounter procedure Appointment [facility] Work Phone: Start: 01-27-2022 End: 01-27-2022 Patient encounter procedure Appointment [facility] Work Phone: Start: 01-02-2022 COVID-19 VACCINE (3 - Booster for Pfizer series) COVID-19 VACCINE (3 - Booster for Pfizer series) [facility] Start: 11-19-2021 DEPRESSION ASSESSMENT DEPRESSION ASSESSMENT [facility] Start: 11-07-2021 COVID-19 VACCINE (2 - Pfizer 3-dose series) COVID-19 VACCINE (2 - Pfizer 3-dose series) [facility] Start: 2021 HPV TESTING HPV TESTING [facility] Start: 2021 Screening for malignant neoplasm of cervix HPV Testing [facility] Start: 05-03-2020 PAP TESTING PAP TESTING [facility] Start: 05-03-2020 Screening for malignant neoplasm of cervix Pap Testing [facility] Start: 10-02-2019 Adult depression screening assessment DEPRESSION SCREENING [facility] Start: 2012 Screening for malignant neoplasm of cervix CERVICAL CANCER SCREENING DISCUSSION [facility] Start: 2010 ONE PNEUMOVAX PRIOR TO AGE 66 ONE PNEUMOVAX PRIOR TO AGE 66 [facility] Start: 2006 HIV screening HIV SCREENING DISCUSSION [facility] Start: 1997 PNEUMOCOCCAL (1 - PCV) PNEUMOCOCCAL (1 - PCV) [facility] Start: 1997 Pneumococcal vaccination Pneumococcal Vaccine (1 of 2 - PCV) [facility] Start: 1991 HEPATITIS B (1 of 3 - 3-dose series) HEPATITIS B (1 of 3 - 3-dose series) [facility] Start: 1991 Hepatitis C screening HEPATITIS C VIRUS SCREENING [facility] End: 07-07-2023 Ct thorax w/o contrast material CT CHEST WO IVCON Radiology Routine Lung nodules 1 Occurrences starting 06/07/2022 until 07/07/2023 [facility] Work Phone: Comment on above: 1 Occurrences starting 06/07/2022 until 07/07/2023 Ct thorax w/o contra st material CT CHEST WO IVCON Radiology Routine Lung nodules 06/19/2022 11:56 AM EDT [facility] Work Phone: Ecg routine ecg w/le ast 12 lds w/i&r OR ECG ROUTINE ECG W/LEAST 12 LDS W/I&R OR - OFFICE PERFORMED Routine Palpitations Precordial chest pain Shortness of breath Ordered: 12/15/2024 [facility] Comment on above: Ordered: 12/15/2024 Electrocardiogram wi th exercise test ECG, TREADMILL STRESS (NON-IMAGING) Stress Echocardiography Routine Palpitations Precordial chest pain Shortness of breath Ordered: 12/15/2024 [facility] Comment on above: Ordered: 12/15/2024 Influenza virus A an d B RNA and SARS-CoV-2 (COVID-19) N gene panel - Respiratory specimen by KRUPA with probe detection COVID WITH FLUA+B, ROUTINE Microbiology Routine Acute cough Nasal congestion 10/23/2022 11:19 AM EST [facility] Work Phone: End: 07-07-2023 Us soft tissue head & neck real time imge docm US THYROID/PARATHYROID Radiology Routine Dysphagia, unspecified type Sensation of foreign body in throat 1 Occurrences starting 06/07/2022 until 07/07/2023 [facility] Work Phone: Comment on above: 1 Occurrences starting 06/07/2022 until 07/07/2023 [facility] Immunizations Immunization Date Immunization Notes Care Provider Nicholas savage 09-06-2022 influenza virus vaccine, unspecified formulation Gloria Barrera PA-C Work Phone: [facility] 09-10-2019 influenza, injectabl e, quadrivalent, contains preservative Cici Briones RN [facility] Work Phone: 08-06-2017 influenza, injectabl e, quadrivalent, contains preservative Cici Briones RN [facility] 02-19-2017 tetanus toxoid, redu jonn diphtheria toxoid, and acellular pertussis vaccine, adsorbed Cici Briones RN [facility] Work Phone: 09-30-2015 influenza, injectabl e, quadrivalent, contains preservative Cici Briones RN [facility] 10-27-2014 influenza, seasonal, injectable Cici Briones RN [facility] Work Phone: 08-14-2011 influenza virus vaccine, unspecified formulation Cici Briones RN [facility] Payers Date Payer Category Payer Self-pay 2023 Unknown [id number] 2023 Unknown [id number] 2022 Unknown [id number] 2021 Unknown MMO MMO TPA [id number] 2021-Present [address] [place] [address] PPO [id number] 2021 Unknown [id number] 2017 Medicaid [employer] [employer] [id number] 2017-Present [phone] [address] [place] [address] Medicaid [id number] 2017 Medicaid [id number] [id number] 1991 Unknown [id number] 1991 Unknown [id number] 1991 Unknown [id number] 1991 Unknown [id number] [id number] 1991 Unknown [id number] Unknown [id number] [id number] Unknown [id number] [id number]2 Unknown [id number] [id number] Unknown [id number] [id number] Unknown [id number] Unknown [id number] [id number] Unknown [id number] [id number] Unknown [id number] [id number] Unknown [id number] 2.16.840.1.568682.3.579.2.462 Unknown [id number] 2.16.840.1.247084.3.579.2.462 Unknown [id number] [id number] Unknown [id number] [id number] Unknown [id number] [id number] Unknown [id number] [id number] Unknown [id number] [id number] Unknown [id number] [id number] Unknown [id number] [id number] Unknown [id number] Social History Date Type Detail Facility Start: 01-27-2022 End: 03-14-2022 Assertion Unknown if ever smoked [facility] Work Phone: Start: 10-14-2018 End: 10-13-2022 Tobacco smoking status NHIS Smokes tobacco daily [facility] Work Phone: Start: 12-15-2019 End: 10-19-2008 History of tobacco use Cigarette Smoker [facility] Work Phone: End: 10-19-2008 History of tobacco use Cigar Smoker [facility] Work Phone: Start: 10-14-2018 End: 12-15-2024 Tobacco use and exposure Smokeless tobacco non-user [facility] Work Phone: Start: 09-24-2020 End: 01-20-2024 Alcohol intake Current drinker of alcohol (finding) [facility] Start: 08-18-2020 End: 09-24-2020 History SDOH Alcohol Frequency 2 [facility] Start: 04-23-2020 End: 08-18-2020 History SDOH Alcohol Std Drinks 1 [facility] Start: 10-14-2018 History SDOH Alcohol Comment occasionally-does not drink on weekly basis [facility] Start: 04-23-2020 End: 08-18-2020 History SDOH Social Connections Phone 5 [facility] Start: 08-18-2020 End: 09-24-2020 History SDOH Social Connections Get Together 98 [facility] Start: 04-23-2020 End: 09-24-2020 History SDOH Social Connections Living 3 [facility] Start: 04-23-2020 Education 12 [facility] Start: 10-14-2018 End: 09-29-2022 Tobacco Comment 8 cigars per day-for about 1 month as of 10/14/18-previously smoked cigarettes on & off until 2007 [facility] Start: 1991 Sex Assigned At Not on file [facility] Start: 03-08-2022 End: 10-23-2022 Exposure to SARS-CoV-2 (event) Not sure [facility] Start: 09-19-2022 End: 09-29-2022 Exposure to SARS-CoV-2 (event) Yes [facility] Work Phone: Start: 10-13-2022 End: 12-15-2024 Cigarettes smoked current (pack per day) - Reported 0.5 [facility] Start: 08-18-2020 End: 12-15-2024 Social connection and isolation panel [facility] Frequency of Communication with Friends and Family Not on file [facility] How often to you hav e a drink containing alcohol? Monthly or less [facility] How many standard dr inks containing alcohol do you have on a typical day? 1 or 2 [facility] How often do you hav e 6 or more drinks on 1 occasion? Less than monthly [facility] How hard is it for y ou to pay for the very basics like food, housing, medical care, and heating Somewhat hard [facility] Work Phone: Do you feel stress - tense, restless, nervous, or anxious, or unable to sleep at night because your mind is troubled all the time - these days [OSQ] Very much [facility] (I/We) worried danis er (my/our) food would run out before (I/we) got money to buy more. Often true [facility] Work Phone: The food that (I/we) bought just didn't last, and (I/we) didn't have money to get more. DK or Refused [facility] Work Phone: At any time in the p ast 12 months, were you homeless or living in senior care [including now]? No [facility] Start: 12-15-2024 Tobacco smoking status NHIS Ex-smoker [facility] Start: 12-15-2019 History of tobacco use Current smoker [facility] Start: 12-15-2024 Alcoholic beverage intake Ex-drinker (finding) [facility] Start: 12-14-2024 Gender identity Identifies as female gender (finding) [facility] Start: 12-14-2024 Sexual orientation Heterosexual (finding) [facility] Medical Equipment Procedure Code Equipment Code Equipment Origin al Text Equipment Identifier Dates [facility] - [id number] Start: 12-02-2013 Clinical Notes 08-31-2014 to [...] intake for both cardiac and noncardiac reasons. [facility] 12-15-2024 Miscellaneous Notes Associated Problem(s): [...] channel antagonist therapy. documented in this encounter [facility] 12-15-2024 Evaluation + Plan note [...] she admits to being a cigarette smoker. [facility] 12-15-2024 Evaluation + Plan note Associated Problem(s): Precordial chest pain She does have an element of precordial chest pain. It is somewhat atypical. However, it was felt reasonable that she undergo further evaluation with a treadmill stress test. This will also provide additional evaluation with respect to concerns of her underlying cardiac ectopy or cardiac rhythm. [facility] 12-15-2024 Evaluation + Plan note [...] therapy or possibly calcium channel antagonist therapy. [facility] 12-15-2024 History of Present illness Narrative Images from the original note were not included. Referring provider: Yasmine Beavers MD Primary care provider: No primary care provider on file. Dear Dr. Beavers, I had the pleasure of seeing your patient, Susana Mcclain, at the [facility] at [facility] on 12/15/2024. 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 She knows she intermittently has a [...] Resource Strain: Medium Risk (09/24/2020) Received from [facility] Overall Financial Resource Strain (CARDIA) Difficulty of Paying Living Expenses: Somewhat hard Food Insecurity: Food Insecurity Present (09/24/2020) Received from [facility] Hunger Vital Sign Worried About Running Out of Food in the Last Year: Often true Ran Out of Food in the Last Year: Patient declined Transportation Needs: No Transportation Needs (09/24/2020) Received from [facility] PRAPARE - Transportation Lack of Transportation (Medical): No Lack of Transportation (Non-Medical): No Physical Activity: Insufficiently Active (08/18/2020) Received from [facility] Exercise Vital Sign Days of Exercise per Week: 5 days Minutes of Exercise per Session: 10 min Stress: Stress Concern Present (04/23/2020) Received from [facility] [place] of Occupational Health - Occupational Stress Questionnaire Feeling of Stress : Very much Social Connections: Unknown (08/18/2020) Received from [facility] Social Connection and Isolation Panel [NHANES] Frequency of Communication with Friends and Family: Not on file Frequency of Social Gatherings with Friends and Family: Patient declined Attends Orthodox Services: Not on file Active Member of Clubs or Organizations: Not on file Attends Club or Organization Meetings: Not on file Marital Status: Not on file Intimate Partner Violence: Not on file Housing Stability: High Risk (08/18/2020) Received from [facility] Housing Stability Vital Sign Unable to Pay [...] Supplemental Information: ELECTROCARDIOGRAM 03/09/2023 EVENT MONITOR 10/21/2024 [facility] In summary, Ms. Mcclain is managed today [...] all orders for this visit: Palpitations - OR ECG ROUTINE ECG W/LEAST 12 LDS W/I&R - ECG, TREADMILL STRESS (NON-IMAGING) Precordial chest pain - OR ECG ROUTINE ECG W/LEAST 12 LDS W/I&R - ECG, TREADMILL STRESS (NON-IMAGING) Shortness of breath - OR ECG ROUTINE ECG W/LEAST 12 LDS W/I&R [...] to contact me. Sincerely, Angel Harris MD, [facility] Adjustment Examiner - Clinical Division of Cardiovascular Medicine Department of Internal Medicine [facility] Please be aware that portions of this note may have been completed with a voice recognition software system and an artificial intelligence system with the knowledge and approval of the patient. Despite efforts to edit the note mis-transcribed words may still be present. 12 Lead EKG performed per provider's order, per policy, and given to Steven for interpretation. Medical carbide powder processor offered to patient prior to sensitive procedure and patient declined KATE documentation tool explained to patient. Patient accepted the use of KATE documentation tool during today's visit. documented in this encounter [facility] 01-22-2024 Miscellaneous Notes Patient notified her that her antibiotic was not effective did call doxycycline and patient will get that picked up and started right away. documented in this encounter [facility] 01-20-2024 Note HNO ID: [id number] Author: GLORIA BARRERA PA-C Service: ? Author Type: Physician Transition Mgr Type: Progress Notes Filed: 01/20/2024 12:09 Note Text: This note was created using S[employer] Com[employer]cer[employer]. Subjective Susana Mcclain is a 33 year [...] CULTURE WITH GRAM STAIN Gloria Barrera PA-C [facility] 01-20-2024 History of Present illness Narrative Images from the original note were not included. This note was created using [employer]. Subjective Susana Mcclain is a 33 year old female. HPI Presents with a chief complaint of a possible infection in her right alvarez area. She had ACL reconstruction by [facility] on December 31. She states the [...] PA-C documented in this encounter [facility] 09-15-2023 Note . MICRO - Microbiology PROCEDURE: [...] Locations *1: This test was performed at: [address], [facility]) 03-05-2023 Miscellaneous Notes Patient has been identified [...] Mary Glover LPN documented in this encounter [facility] 02-09-2023 Miscellaneous Notes Pt called and is [...] APRN.CNP documented in this encounter [facility] 02-05-2023 Note HNO ID: [id number] Author: Deneen Rolon APRN.CNP Service: ? Author Type: Nurse Practitioner Type: Progress Notes Filed: 02/05/2023 10:42 AM Note Text: Patient did not log in for her virtual visit with the provider today. She did not answer her phone when she was contacted prior to the appointment time. [facility] 02-05-2023 History of Present illness Narrative Patient did not log in for her virtual visit with the provider today. She did not answer her phone when she was contacted prior to the appointment time. documented in this encounter [facility] 01-26-2023 Note HNO ID: [id number] Author: Marco Antonio Costa APRN.CNP Service: ? [...] right by her tailbone in ED at [facility] on 10/2022. Seems to come back [...] omepraz (more content not included)... [facility] 01-26-2023 Instructions Marco Antonio Costa APRN.EMERSON - 01/26/2023 2:11 PM EST Schedule with general surgery. Have your labs drawn. Start the omeprazole and take daily to see if this may be heartburn giving you this feeling in your throat. documented in this encounter [facility] 01-26-2023 History of Present illness Narrative Chief Complaint Patient presents with: Pain, Back: Lower back, Abcess drained in Er - October 2022 HPI Susana Mcclain is a 32 year old female who presents here today for Above Complaints.. Today: Had abscess drained that was right by her tailbone in ED at [facility] on 10/2022. Seems to come back [...] APRN.CNP documented in this encounter [facility] 12-18-2022 Instructions Deneen Rolon APRN.CNP - 12/18/2022 [...] - Call the National Suicide Hotline at 4-475-GXEZTVB ( ) or 4-005-131-TALK (4659) - Text 4HOPE to 497803 Medication Update: Seroquel 200 mg - take 1 tablet at bedtime. Gabapentin 300 mg - take 1 capsule three times a day. Utilize xanax only as needed for overwhelming episodes of anxiety and panic. Next appointment: --Schedule in 6 to 8 weeks or sooner if needed -- You may call the department appointment line at [phone] to schedule your appointment. -- Please call my nurse Mary at [phone] or send me a message in LendingStandard with any questions or concerns between appointments. 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 Interval Progress: Slightly improved Risks and benefits [...] which included preparing to see the patient, [id number] patient care, completing clinical documentation, and counseling and educating the patient/family/caregiver, ordering medications/labs. Deneen Rolon APRN.DESIGN PAINTER December 18, 2022 9:30 AM This note was partially generated using 4vets voice recognition system. Note was reviewed for accuracy. There may be minor misspellings or grammar miscues with 4vets voice recognition. documented in this encounter [facility] 11-14-2022 Instructions Deneen Rolon APRN.CNP - 11/14/2022 [...] - Call the National Suicide Hotline at 7-862-HYSCPEC ( ) or 2-694-085-TALK (5462) - Text 4HOPE to 657924 Medication Update: Stop Trazodone Seroquel 150 mg - take 1 tablet every night at bedtime. Gabapentin 100 mg - take 1 capsules three times daily. Utilize xanax only as needed for overwhelming episodes of anxiety. Next appointment: --Schedule in 4 weeks or sooner if needed -- You may call the department appointment line at [phone] to schedule your appointment. -- Please call my nurse Mary at [phone] or send me a message in Lending[employer] with any questions or concerns between appointments. documented in this encounter [facility] 11-14-2022 History of Present illness Narrative Images [...] which included preparing to see the patient, bldt-px-sijn patient care, completing clinical documentation, and counseling and educating the patient/family/caregiver, ordering medications/labs. Deneen Rolon APRN.CNP November 14, 2022 8:27 AM This note was partially generated using 4vets voice recognition system. Note was reviewed for accuracy. There may be minor misspellings or grammar miscues with Dragon voice recognition. documented in this encounter [facility] 10-23-2022 Miscellaneous Notes Patient returned call. She is at [facility] ER at this time. Jasmina Blue RN [...] to report that she was seen in [facility] today and is waiting on influenza/covid [...] LPN documented in this encounter [facility] 10-23-2022 History of Present illness Narrative 10/23/2022 [...] PA-C documented in this encounter [facility] 10-23-2022 Miscellaneous Notes Triage protocol recommended: PCP [...] TRAVEL: no Protocols used: Cough - Acute [id number] documented in this encounter [facility] 10-13-2022 Instructions Deneen Rolon APRN.EMERSON - 10/13/2022 2:08 PM EST Liana Meza, It was good to meet and talk with you today. Below is a summary of the plan that we discussed during your appointment for reference. Of course, if you have any questions or concerns do not hesitate to reach out to me via a message or call. Best, Deneen Rolon APRN.DESIGN PAINTER PLAN AND FOLLOW UP: YOU SHOULD SEEK [...] - Call the National Suicide Hotline at 9-758-FDPOWDM ( ) or 7-092-107-TALK (8332) - Text 7SUOM to 705472 Medication Update: - Stop Abilify - Seroquel (Quetiapine 50 mg) - take 1 tablet at bedtime. - Continue Trazodone and Xanax at the same dose. Next appointment: --Schedule in 4 weeks or sooner if needed -- You may call the department appointment line at [phone] to schedule your appointment. -- Please call my nurse Mary at [phone] or send me a message in LendingStandard with any questions or concerns between appointments. documented in this encounter [facility] 10-13-2022 History of Present illness Narrative Images [...] manipulation, and lying from . 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 She was admitted to [facility]. The psychiatrist diagnosed her with Bipolar [...] her that she was making it up. Sheridan that after that things were sweeped under the rug. -Sheridan that males in her family treated her [...] Therapist: Previously followed by a therapist at [facility] and [facility]. Current Environmental Technology Professor: No Last Hospitalization: Yes, [facility] [...] No history of use or dependence SPIRITUALITY: [employer] [facility]: Susana Mcclain was adopted. Does not have a relationship with her adopted siblings. The patient was born in [place] and raised in [place]. She completed High school, Some college. [...] which included preparing to see the patient, tybq-yz-hsuy patient care, completing clinical documentation, obtaining and/or reviewing separately obtained history, counseling and educating the patient/family/caregiver, ordering medications, tests, or procedures, independently interpreting results (not separately reported), and communicating results to the patient/family/caregiver. ADD ON PSYCHOTHERAPY CODE : No SIGNATURE: Deneen Rolon APRN.CNP PATIENT NAME: Susana Mcclain DATE: October 13, 2022 TIME: 1:02 PM PAGER : documented in this encounter [facility] 09-29-2022 History of Present illness Narrative Patient [...] her. documented in this encounter [facility] 07-03-2022 Miscellaneous Notes Behavioral Health Social Work Progress Note Patient identified for [facility] from: PCP Reason for referral: Resources Behavioral Health Resources: Psychology - talk therapy;Psychiatry med management [facility] encounter type: Telephone Encounter Attempts to Outreach: 1 attempt Patient Discharged?: No Patient reported that caregiver was able to meet their needs today?: Yes Call placed to patient to discuss behavioral health needs. Pt looking for mental health treatment, psych and therapy. Advised will send list of providers in mychart. Pt to reach [facility] Prn. DORI Pritchard July 03, 2022 documented in this encounter [facility] 07-03-2022 History of Present illness Narrative Chief [...] [facility] Follow-up via Health: Eltchart message in 1-2 weeks to let me know how you are doing. RTO as needed. Prescription instructions reviewed with patient as applicable. Potential red flag symptoms discussed with the patient. Reviewed appropriate action plan to take if red flag symptoms occur. Patient agreeable to treatment plan. Thuy Bonilla APRN.CNP [address] [place] [address] documented in this encounter [facility] 06-23-2022 Miscellaneous Notes Pt informed, verbalized understanding Marilin Garner Ma Yes, agree with ER evaluation. Marco Antonio Costa APRN.CNP Patient calling said she was in [facility] ER last Sunday with pulse rate [...] chest tightness. She said she called her Psychology Lecturer office and not heard back from them. Advised to go to the ER for evaluation. documented in this encounter [facility] 06-19-2022 History of Present illness Narrative Radiology [...] PM documented in this encounter [facility] 06-14-2022 History of Present illness Narrative Radiology [...] AM documented in this encounter [facility] 06-07-2022 Instructions Marco Antonio Costa APRN.CNP - 06/07/2022 11:33 AM EDT Hold your trazodone while using the Ambien. Let me know how you're doing with the Ambien. Restart you Abilify. Update me on this as well. Have your labs completed. Schedule your chest CT. Schedule your thyroid ultrasound. documented in this encounter [facility] 06-07-2022 History of Present illness Narrative Chief [...] diet of 1000 mg/day for under 50, 4066-5196 mg/day for 50+ - Smoking cessation encouraged; [...] APRN.EMERSON documented in this encounter [facility] 05-31-2022 History of Present illness Narrative 32 year old female presents for abscess in rectum Patient is experiencing a pilonidal cyst, that is not treated here in the express care. Patient offered to schedule with surgery in morning, States she is in too much pain and uncomfortable Sent to ED documented in this encounter [facility] 05-31-2022 Miscellaneous Notes Noted. Agree with below. Thuy Bonilla APRN.DESIGN PAINTER Patient calling with painful, draining sore on [...] States the area is painful Protocols used: [id number]-JG documented in this encounter [facility] 03-18-2022 History of Present illness Narrative Visit Summary for Susana Mcclain - Gender: Female - Date of : 1990 Date: - Duration: 3 minutes Patient: Susana Mcclain Provider: Phillip Cleveland Patient Contact Information Address [address] [place], [place] [id number] [phone] Visit Topics I ve been sick for [...] Adult Medicine.[Notification] Susana Mcclain is located in [place].[Notification] Susana Mcclain has shared health history... Diagnosis Acute sinusitis, unspecified Value: J01.90 Code: ICD-10-CM Diarrhea, unspecified Value: R19.7 Code: ICD-10-CM Nausea with vomiting, unspecified Value: R11.2 Code: ICD-10-CM Procedures Value: 26159 Code: CPT-4 OFFICE/OUTPATIENT VISIT EST Value: 45170 Code: CPT-4 OL DIG E/M SVC 11-20 [...] ) documented in this encounter [facility] 03-18-2022 Miscellaneous Notes Reason for Call: Patient [...] fever 7. RESPIRATORY STATUS: No wheezing 8. [id number]: Worse, nausea present now and also having chills 10. VACCINE: Yes, Pfizer 11. BOOSTER: Denies 12. : Denies 13. OTHER SYMPTOMS: Chills, fatigue, cough, congestion, runny nose, diarrhea and nausea 14. O2 SATURATION MONITOR: 98% on RA Patient was test for the flu and covid on 02/26 both were negative Protocols used: CORONAVIRUS (COVID-19) DIAGNOSED OR [id number] documented in this encounter [facility] 08-31-2014 History of Past i llness Narrative [...] encounter (statuses as of 03/18/2022) [facility] History of Past illness Narrative* Problem Noted [...] encounter (statuses as of 03/19/2022) [facility] History of Past illness Narrative* Problem Noted [...] encounter (statuses as of 05/31/2022) [facility] History of Past illness Narrative* Problem Noted [...] encounter (statuses as of 05/31/2022) [facility] History of Past illness Narrative* Problem Noted [...] encounter (statuses as of 06/07/2022) [facility] History of Past illness Narrative* Problem Noted [...] encounter (statuses as of 06/15/2022) [facility] History of Past illness Narrative* Problem Noted [...] encounter (statuses as of 06/20/2022) [facility] History of Past illness Narrative* Problem Noted [...] encounter (statuses as of 06/22/2022) [facility] History of Past illness Narrative* Problem Noted [...] encounter (statuses as of 06/22/2022) [facility] History of Past illness Narrative* Problem Noted [...] encounter (statuses as of 06/23/2022) [facility] History of Past illness Narrative* Problem Noted [...] encounter (statuses as of 07/03/2022) [facility] History of Past illness Narrative* Problem Noted [...] encounter (statuses as of 07/03/2022) [facility] History of Past illness Narrative* Problem Noted [...] encounter (statuses as of 09/29/2022) [facility] History of Past illness Narrative* Problem Noted [...] encounter (statuses as of 10/21/2022) [facility] History of Past illness Narrative* Problem Noted [...] encounter (statuses as of 10/23/2022) [facility] History of Past illness Narrative* Problem Noted [...] encounter (statuses as of 10/23/2022) [facility] History of Past illness Narrative* Problem Noted [...] encounter (statuses as of 11/19/2022) [facility] History of Past illness Narrative* Problem Noted [...] encounter (statuses as of 12/18/2022) [facility] History of Past illness Narrative* Problem Noted [...] encounter (statuses as of 01/26/2023) [facility] History of Past illness Narrative* Problem Noted [...] encounter (statuses as of 02/05/2023) [facility] History of Past illness Narrative* Problem Noted [...] encounter (statuses as of 02/09/2023) [facility] History of Past illness Narrative* Problem Noted [...] encounter (statuses as of 03/05/2023) [facility] History of Past illness Narrative* Problem Noted [...] encounter (statuses as of 01/20/2024) [facility] History of Past illness Narrative* Problem Noted [...] encounter (statuses as of 01/22/2024) [facility] may be information available, but it has not been provided by the sender.[facility] Work Phone: Evaluation note* Diagnosis Pilonidal abscess of cleft- Primary Pilonidal cyst with abscess [facility] Diagnosis Well adult exam- Primary Routine [...] and immunity disorders [facility] Dysphagia, unspecified type Sensation of foreign body in throat Other symptoms involving head and neck [facility] Diagnosis Lung nodules Other nonspecific abnormal finding of lung field [facility] Diagnosis Bipolar disorder, in partial remission, most recent episode depressed (HCC)- Primary Bipolar I disorder, most recent episode (or current) depressed, in partial or unspecified remission Chronic insomnia Insomnia, unspecified ALFREDO (generalized anxiety disorder) Generalized anxiety disorder [facility] Diagnosis Urinary frequency- Primary SOB (shortness of breath) Shortness of breath [facility] Diagnosis Moderate mixed bipolar I disorder (HCC)- Primary Bipolar I disorder, most recent episode (or current) mixed, moderate History of posttraumatic stress disorder (PTSD) [facility]* Diagnosis Acute cough- Primary Nasal congestion Other diseases of nasal cavity and sinuses [facility]* Diagnosis Moderate mixed bipolar I disorder (HCC)- Primary Bipolar I disorder, most recent episode (or current) mixed, moderate Generalized anxiety disorder History of attention deficit hyperactivity disorder (ADHD) [facility]* Diagnosis Generalized anxiety disorder- Primary Bipolar 1 disorder, depressed, moderate (HCC) Bipolar I disorder, most recent episode (or current) depressed, moderate History of attention deficit hyperactivity disorder (ADHD) History of posttraumatic stress disorder (PTSD) [facility]* Diagnosis Cyst near tailbone- Primary Pilonidal [...] disorder [facility]* Diagnosis NO SHOW- Primary [facility]* Diagnosis Surgical wound infection- Primary Other postoperative infection [facility]* Diagnosis Palpitations- Primary Precordial chest pain Precordial pain Shortness of breath Tobacco use Tobacco use disorder [facility] Description Start Date CompletedPatient advised to follow-up with Primary Care Physician for BMI management. [facility] Work Phone: Instructions* Instruction Description Start Date CompletedPatient advised to follow-up with Primary Care Physician for BMI management. [facility] Work Phone: Reason for referral (narrative)* Diagnostic Procedure Only (Routine) - Closed Specialty Diagnoses / Procedures Referred By Portia rivera Referred To Contact US IMAGING Diagnoses Dysphagia, unspecified type Sensation of foreign body in throat Procedures US THYROID/PARATHYROID US SOFT TISSUE HEAD & NECK REAL TIME IMGE DOCM Marco Antonio Costa APRN.DESIGN PAINTER [address] [place] [address] Us Imaging Referral ID Status Reason Start Date Expiration Date V isits Requested Visits Authorized [id number] Closed Auto-Generate d Referral 06/07/2022 07/07/2023 1 1 [facility] Summary Purpose Family History No Family History [...] FoundDocuments on File Type Date Recorded 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 Design Engineer Expl anation Advance Directive(s) 10/15/2018 11:01 AM Documents on File Type Date Recorded 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 Design 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 Expl 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 Advance Directive(s) 10/15/2018 11:01 AM [...] TOMOGRAPHY THORAX W/O CNTRST Marco Antonio Costa APRN.DESIGN PAINTER [address] [place] [address] Ct Imaging Referral ID Status Reason Start Date Expiration Date Visits Requested Visits Authorized [id number] Authorized Auto-Generat ed Referral 06/07/2022 11/18/2022 1 1 Specialty Diagnoses / Procedures Referred By Contac t Referred To Contact US IMAGING Diagnoses Dysphagia, unspecified type Sensation of foreign body in throat Procedures US THYROID/PARATHYROID US SOFT TISSUE HEAD & NECK REAL TIME IMGE DOCM Marco Antonio Costa, CAGER OPERATOR.DESIGN PAINTER [address] [place] [address] Us Imaging Referral ID Status Reason Start Date Expiration Date Visits Requested Visits Authorized [id number] Authorized Auto-Generat ed Referral 06/07/2022 07/07/2023 1 1 Referral ID Status Reason Start Date Expiration Date V isits Requested Visits Authorized [id number] Closed Auto-Generate d Referral 06/07/2022 11/18/2022 1 1 Specialty Diagnoses / Procedures Referred By Contac t Referred To Contact General Surgery Diagnoses Cyst near tailbone Well adult exam Myalgia Arthralgia, unspecified joint Procedures CONSULT TO GENERAL SURGERY OFFICE/OUTPATIENT NEW HIGH MDM 60-74 MINUTES Marco Antonio Costa, CAGER OPERATOR.DESIGN PAINTER [address] [place] [address] Referral ID Status Reason Start Date Expiration Date Visits Requested Visits Authorized [id number] Authorized PCP Requested Referral 01/26/2023 01/26/2024 1 1 Specialty Diagnoses / Procedures Referred By Contac t Referred To Contact Diagnoses Palpitations Precordial chest pain Shortness of breath Procedures ECG, TREADMILL STRESS (NON-IMAGING) OR CV STRS TST XERS&/OR RX CONT ECG W/SI&R Angel Harris MD [address] [place] [address] [address] [place] [address] Referral ID Status Reason Start Date Expiration Date V isits Requested Visits Authorized [id number] New Request 12/15/2024 01/09/2026 1 1 Additional Source Comments INFORMATION SOURCE (unrecogn ized section and content) DATE CREATED AUTHOR 08/29/2019 [facility] DATE CREATED AUTHOR AUTHOR'S ORGANIZ ATION 01/17/[address] [facility] ([place]) DATE CREATED AUTHOR AUTHOR'S ORGANIZ ATION 01/21/2024 [facility] DATE CREATED AUTHOR AUTHOR'S ORGANIZ ATION 04/24/2024 [facility] DATE CREATED AUTHOR AUTHOR'S ORGANIZ ATION 12/15/2024 [facility] DATE CREATED AUTHOR AUTHOR'S ORGANIZ ATION 05/22/2025 [facility] Reason for Visit (unrecogniz ed section and [...] REAL TIME IMGE DOCM Marco Antonio Costa, CAGER OPERATOR.DESIGN PAINTER [address] [place] [address] Us Imaging Referral ID Status Reason Start Date Expiration Date V isits Requested Visits Authorized [id number] Closed Auto-Generate d Referral 06/07/2022 07/07/2023 1 [address] Specialty Diagnoses / Procedures Referred By Contac t Referred To Contact CT IMAGING Diagnoses Lung nodules Procedures CT CHEST WO IVCON DIAGNOSTIC COMPUTED TOMOGRAPHY THORAX W/O CNTRST Marco Antonio Costa, LUPE.DESIGN PAINTER [address] [place] [address] Ct Imaging Referral ID Status Reason Start Date Expiration Date V isits Requested Visits Authorized [id number] Closed Auto-Generate d Referral 06/07/2022 11/18/2022 1 1 Reason Comments Opened In Error Reason Comments Patient Update Reason Comments Anxiety Depression Specialty Diagnoses / Procedures Referred By Contac t Referred To Contact Family Practice / FAMILY MEDICINE Diagnoses At risk for increased anxiety increased anxiety Procedures OFFICE/OUTPATIENT ESTABLISHED MOD MDM 30-39 MIN 4C EST Rober Saba L, DO [address] [place] [address] Thuy Bonilla APRN.DESIGN PAINTER [address] [place] [address] Referral ID Status Reason Start Date Expiration Date V isits Requested Visits Authorized [id number] Authorized 07/03/2022 10/01/2022 10 10 Reason Comments [...] OUTSIDE ORDER PREFERS DR ANGEL HARRIS IN [place] PALPITATION Procedures [facility] Yasmine Beavers MD [address] [facility] [address] [place] [address] Angel Harris MD [address] [facility] [address] [place] [address] Referral ID Status Reason Start Date Expiration Date V isits Requested Visits Authorized [id number] New Request 12/15/2024 01/09/2026 1 1 Source Comments (unrecognize d section and content) In the event this informatio n is protected by the Federal Confidentiality of Alcohol and Drug Abuse Patient Records regulations: The Federal rules restrict any use of the information to criminally investigate or prosecute any alcohol or drug abuse patient.[facility] the event this information is protected by the Federal Confidentiality of Alcohol and Drug Abuse Patient Records regulations: The Federal rules restrict any use of the information to criminally investigate or prosecute any alcohol or drug abuse patient.[facility] the event this information is protected by the Federal Confidentiality of Alcohol and Drug Abuse Patient Records regulations: The Federal rules restrict any use of the information to criminally investigate or prosecute any alcohol or drug abuse patient.[facility] Memorial[facility] the event this information is protected by the Federal Confidentiality of Alcohol and Drug Abuse Patient Records regulations: The Federal rules restrict any use of the information to criminally investigate or prosecute any alcohol or drug abuse patient.[facility] MemorialIn the event this information is protected by the Federal Confidentiality of Alcohol and Drug Abuse Patient Records regulations: The Federal rules restrict any use of the information to criminally investigate or prosecute any alcohol or drug abuse patient.[facility] Memorial[facility] the event this information is protected by the Federal Confidentiality of Alcohol and Drug Abuse Patient Records regulations: The Federal rules restrict any use of the information to criminally investigate or prosecute any alcohol or drug abuse patient.[facility] Memorial[facility] the event this information is protected by the Federal Confidentiality of Alcohol and Drug Abuse Patient Records regulations: The Federal rules restrict any use of the information to criminally investigate or prosecute any alcohol or drug abuse patient.[facility] Memorial[facility] the event this information is protected by the Federal Confidentiality of Alcohol and Drug Abuse Patient Records regulations: The Federal rules restrict any use of the information to criminally investigate or prosecute any alcohol or drug abuse patient.[facility] MemorialIn the event this information is protected by the Federal Confidentiality of Alcohol and Drug Abuse Patient Records regulations: The Federal rules restrict any use of the information to criminally investigate or prosecute any alcohol or drug abuse patient.[facility] MemorialIn the event this information is protected by the Federal Confidentiality of Alcohol and Drug Abuse Patient Records regulations: The Federal rules restrict any use of the information to criminally investigate or prosecute any alcohol or drug abuse patient.[facility] Memorial[facility] the event this information is protected by the Federal Confidentiality of Alcohol and Drug Abuse Patient Records regulations: The Federal rules restrict any use of the information to criminally investigate or prosecute any alcohol or drug abuse patient.[facility] Memorial[facility] the event this information is protected by the Federal Confidentiality of Alcohol and Drug Abuse Patient Records regulations: The Federal rules restrict any use of the information to criminally investigate or prosecute any alcohol or drug abuse patient.[facility] MemorialIn the event this information is protected by the Federal Confidentiality of Alcohol and Drug Abuse Patient Records regulations: The Federal rules restrict any use of the information to criminally investigate or prosecute any alcohol or drug abuse patient.[facility] MemorialIn the event this information is protected by the Federal Confidentiality of Alcohol and Drug Abuse Patient Records regulations: The Federal rules restrict any use of the information to criminally investigate or prosecute any alcohol or drug abuse patient.[facility] MemorialIn the event this information is protected by the Federal Confidentiality of Alcohol and Drug Abuse Patient Records regulations: The Federal rules restrict any use of the information to criminally investigate or prosecute any alcohol or drug abuse patient.[facility] MemorialIn the event this information is protected by the Federal Confidentiality of Alcohol and Drug Abuse Patient Records regulations: The Federal rules restrict any use of the information to criminally investigate or prosecute any alcohol or drug abuse patient.[facility] MemorialIn the event this information is protected by the Federal Confidentiality of Alcohol and Drug Abuse Patient Records regulations: The Federal rules restrict any use of the information to criminally investigate or prosecute any alcohol or drug abuse patient.[facility] MemorialIn the event this information is protected by the Federal Confidentiality of Alcohol and Drug Abuse Patient Records regulations: The Federal rules restrict any use of the information to criminally investigate or prosecute any alcohol or drug abuse patient.[facility] MemorialIn the event this information is protected by the Federal Confidentiality of Alcohol and Drug Abuse Patient Records regulations: The Federal rules restrict any use of the information to criminally investigate or prosecute any alcohol or drug abuse patient.[facility] MemorialIn the event this information is protected by the Federal Confidentiality of Alcohol and Drug Abuse Patient Records regulations: The Federal rules restrict any use of the information to criminally investigate or prosecute any alcohol or drug abuse patient.[facility] MemorialIn the event this information is protected by the Federal Confidentiality of Alcohol and Drug Abuse Patient Records regulations: The Federal rules restrict any use of the information to criminally investigate or prosecute any alcohol or drug abuse patient.[facility] MemorialIn the event this information is protected by the Federal Confidentiality of Alcohol and Drug Abuse Patient Records regulations: The Federal rules restrict any use of the information to criminally investigate or prosecute any alcohol or drug abuse patient.[facility] MemorialIn the event this information is protected by the Federal Confidentiality of Alcohol and Drug Abuse Patient Records regulations: The Federal rules restrict any use of the information to criminally investigate or prosecute any alcohol or drug abuse patient.[facility] MemorialIn the event this information is protected by the Federal Confidentiality of Alcohol and Drug Abuse Patient Records regulations: The Federal rules restrict any use of the information to criminally investigate or prosecute any alcohol or drug abuse patient.[facility] MemorialIn the event this information is protected by the Federal Confidentiality of Alcohol and Drug Abuse Patient Records regulations: The Federal rules restrict any use of the information to criminally investigate or prosecute any alcohol or drug abuse patient.[facility] Care Teams (unrecognized sec tion and content) Revenue Cycle Analyst Relationship Specialty Start Date End Date Rober Saba, DO [address] [place] [address] PCP - General Family Practice 10/28/14 Revenue Cycle Analyst Relationship Specialty Start Date End Date Rober Saba, DO [address] [place] [address] PCP - General Family Practice 10/28/14 Revenue Cycle Analyst Relationship Specialty Start Date End Date Rober Saba, DO [address] [place] [address] PCP - General Family Practice 10/28/14 Revenue Cycle Analyst Relationship Specialty Start Date End Date Rober Saba DO [address] [place] [address] PCP - General Family Practice 10/28/14 Revenue Cycle Analyst Relationship Specialty Start Date End Date Rober Saba, DO [address] [place] [address] PCP - General Family Practice 10/28/14 Revenue Cycle Analyst Relationship Specialty Start Date End Date Rober Saba, DO [address] [place] [address] PCP - General Family Practice 10/28/14 Revenue Cycle Analyst Relationship Specialty Start Date End Date Rober Saba, DO [address] [place] [address] PCP - General Family Practice 10/28/14 Revenue Cycle Analyst Relationship Specialty Start Date End Date Rober Saba, DO [address] [place] [address] PCP - General Family Practice 10/28/14 Revenue Cycle Analyst Relationship Specialty Start Date End Date Rober Saba, DO [address] [place] [address] PCP - General Family Practice 10/28/14 Revenue Cycle Analyst Relationship Specialty Start Date End Date Rober Saba, DO [address] [place] [address] PCP - General Family Practice 10/28/14 Revenue Cycle Analyst Relationship Specialty Start Date End Date Rober Saba, DO [address] [place] [address] PCP - General Family Practice 10/28/14 Revenue Cycle Analyst Relationship Specialty Start Date End Date Rober Saba, DO [address] [place] [address] PCP - General Family Medicine 10/28/14 Revenue Cycle Analyst Relationship Specialty Start Date End Date Rober Saba, DO [address] [place] [address] PCP - General Family Medicine 10/28/14 Revenue Cycle Analyst Relationship Specialty Start Date End Date Rober Saba, DO [address] [place] [address] PCP - General Family Medicine 10/28/14 Revenue Cycle Analyst Relationship Specialty Start Date End Date Rober Saba, DO [address] [place] [address] PCP - General Family Medicine 10/28/14 Revenue Cycle Analyst Relationship Specialty Start Date End Date Rober Saba, DO [address] [place] [address] PCP - General Family Medicine 10/28/14 Revenue Cycle Analyst Relationship Specialty Start Date End Date Rober Saba, DO [address] [place] [address] PCP - General Family Medicine 10/28/14 Revenue Cycle Analyst Relationship Specialty Start Date End Date Rober Saba, DO [address] [place] [address] PCP - General Family Medicine 10/28/14 Revenue Cycle Analyst Relationship Specialty Start Date End Date Rober Saba, DO [address] [place] [address] PCP - General Family Medicine 10/28/14 Revenue Cycle Analyst Relationship Specialty Start Date End Date Rober Saba, DO [address] [place] [address] PCP - General Family Medicine 10/28/14 Revenue Cycle Analyst Relationship Specialty Start Date End Date Rober Saba DO [address] [place] [address] PCP - General Family Medicine 10/28/14 Revenue Cycle Analyst Relationship Specialty Start Date End Date Rober Saba DO [address] [place] [address] PCP - General Family Medicine 10/28/14 FOR [...] BE BASED ON THE PRIMARY CLINICAL RECORDS. [facility] [employer] [facility]. provides no warranty or guarantee of the accuracy or completeness of information in this document.
[2025-06-02] MEDS: Lactated Ringers 1,000 ML 40 ML IV (06:22)
[2025-06-02] MEDS: Magnesium 1 GM over 15 mins IV (06:34)
--- NOTE | 2025-06-02 07:09 | PCM.PRE.AN2 ---
ASA Classification* ASA Classification ASA Classification: 2 Assessment & Plan Anesthesia* Anesthesia Assessment Anesthesia Assessment: Discussed sedation and/or anesthesia options, risks, benefits, and alternatives with patient/parents/legal guardian/POA. Questions invited. The patient/parents/legal guardian/POA seems to understand and agrees to proceed with anesthesia plan. Reviewed the physical assessment, medical history, allergy history and patient home medications list prior to surgery/procedure/anesthetic and documented any changes. Performed airway and anesthesia risk assessments. Anesthesia Type Anesthesia Type: General History Source History Obtained from:: Patient and Chart Anesthesia Focused Assessment* Temperature: 97.2 F Pulse Rate: 53 Blood Pressure: 107/75 Respiratory Rate: 16 Pulse Ox: 98 Oxygen Delivery Method: Room Air Airway Assessment Mouth opens: >3 cm Mallampati Score: II Teeth Condition: Chipped/Broken (Patient has a cracked filling in the left lower molar.) Neck Range of motion (ROM): Full ROM Labs Anesthesia Preop lab: CBC WBC 13.0 K/mm3 (4.4-11.0) H 05/05/25 16:53 05/05/25 RBC 4.47 M/mm3 (4.2-5.4) 05/05/25 16:53 05/05/25 Hgb 12.8 g/dL (12.0-15.0) 05/05/25 16:53 05/05/25 Hct 37.5 % (37-47) 05/05/25 16:53 05/05/25 Plt Count 276 K/mm3 (150-450) 05/05/25 16:53 05/05/25 CHEMISTRY Potassium 3.6 mmol/L (3.3-5.1) 05/05/25 16:53 05/05/25 Sodium 138 mmol/L (133-145) 05/05/25 16:53 05/05/25 Magnesium 2.3 mg/dL (1.5-2.2) H 05/20/25 13:16 05/20/25 Phosphorus 3.1 mg/dL (2.5-4.9) 04/16/21 14:00 04/16/21 BUN 7 mg/dL (4-19) 05/05/25 16:53 05/05/25 Creatinine 0.86 mg/dL (0.70-1.20) 05/05/25 16:53 05/05/25 Glucose 90 mg/dL (70-99) 05/05/25 16:53 05/05/25 POC Glucose 110 mg/dL (74-106) H 06/02/25 06:07 06/02/25 TSH 1.610 uIU/mL (0.358-3.740) 10/21/24 15:04 10/21/24 COAG PT 14.9 SECONDS (11.7-14.9) 12/31/23 11:11 12/31/23 Urine Test Negative Negative 08/11/20 22:44 08/11/20 Tst Clinic Negative 10/01/24 15:29 10/01/24 Pre-Assessment Diagnosis/Proposed Procedure Planned Operative Procedure(s): (B) Hysterectomy,Vaginal Poss LAVH, Bilateral Salpingectomy Anesthesia History Anesthesia History - peoplesoft financials: Anesthesia History - peoples[employer] financials Hx Hospitalization No 05/19/25 08:48 Any Problems With Anesthesia No 05/19/25 08:48 Cholinesterase deficiency No 05/19/25 08:48 You/Your Family Experience No: ADOPTED 05/19/25 08:48 fever (hyperthermia) with Relationship Recent Exposure to Contagious No 06/02/25 06:17 Disease Does patient have nerve No 05/19/25 08:48 stimulator Patient instructed to have device shut off --Does patient have Pacemaker No 06/02/25 06:17 or ICD? When Was Last Pacemaker Check QUESTION #4 FULL TEXT: You/Your Family Experience fever (hyperthermia) with Anesthesia Last Oral Intake Last Oral intake: Last Oral Intake NPO since 01:30 06/02/25 06:17 Meds taken in AM with sips of No 06/02/25 06:17 water? Meds patient instructed to take am of surgery Any additional information?: Yes NPO since: 01:30 (Patient took her preop Ensure at 1:30 AM.) Meds taken in AM with sips of water?: No PONV PONV - [employer]: PONV - [employer] Female Yes 05/19/25 08:48 HX of Motion Sickness No 05/19/25 08:48 HX of N/V After Surgery No 05/19/25 08:48 Non-Smoker No 05/19/25 08:48 Duration of Surgery greater No 05/19/25 08:48 than 60 minutes Number of Risk Factors 1 05/19/25 08:48 PONV Score Low Risk 05/19/25 08:48 Height & Weight Height & Weight: Anesthesia: Height & Weight Height 5 ft 9 in 06/02/25 06:17 Weight: 88 kg 06/02/25 06:17 Body Mass Index (BMI) 28.6 06/02/25 06:17 Respiratory Assessment Respiratory Assessment - peoples[employer] financials: Respiratory Tract Infection Hx - [employer] financial[employer] Hx Respiratory Tract Infection No 05/19/25 08:48 STOP Sleep Apnea STOP Sleep Apnea - [employer]: STOP Sleep Apnea - [employer] Hx Hypertension No 05/19/25 08:48 Hx Sleep Apnea No 05/19/25 08:48 CPAP BIPAP Do you snore loudly (louder No 05/19/25 08:48 than talking or can be heard Do you often feel tired/ No 05/19/25 08:48 fatigued/ sleepy during daytime? Has anyone observed you stop No 05/19/25 08:48 breathing during sleep? STOP Results Negative 05/19/25 08:48 QUESTION #5 FULL TEXT : Do you snore loudly (louder than talking or can be heard through closed doors)? 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 Specify any problems Hx of Preganancy in last 3 No 05/19/25 08:48 Months Nurse Filling Out Transfusion [facility] 05/19/25 08:48 & Questions: Date: 05/19/25 05/19/25 08:48 Time: 08:56 05/19/25 08:48 Patient unable to answer at this time (ie. confused, unrespo /Reproduction History /Reproductive History - [employer] financial[employer]: /Reproductive Hx- [employer] financial[employer] Hx Now No 05/19/25 08:48 Gestational Age (in weeks): EDC: Hx Hx Para Hx Section SAB No 05/19/25 08:48 Active Medications Active Medications: Current Medications Generic Name Dose Route Start Last Admin Trade Name Freq PRN Reason Stop Dose Admin Acetaminophen 1,000 mg 06/02/25 07:30 06/02/25 06:22 Acetaminophen 500 Mg Tablet PO 06/02/25 07:31 1,000 mg PREOP ONE Administration Gabapentin 600 mg 06/02/25 07:30 06/02/25 06:22 Gabapentin 600 Mg Tablet PO 06/02/25 07:31 600 mg PREOP ONE Administration Lactated Ringer's 1,000 mls @ 40 mls/hr 06/02/25 07:30 06/02/25 06:22 IV 40 mls/hr .Q25H BOYD Administration Cefazolin Sodium 2 gm/ Sodium 110 mls @ 150 mls/hr 06/02/25 07:30 Chloride IV 06/02/25 08:13 INTRAOP ONE Insulin Human Lispro 0 unit 06/02/25 07:30 Insulin Lispro 100 Unit/Ml Insuln.Pen SC Q4H PRN PRN BG >/= 180, SEE PROTOCOL Protocol Ondansetron HCl 4 mg 06/02/25 07:30 Ondansetron 4 Mg/2 Ml Vial IV 06/02/25 07:31 INTRAOP ONE PFSH Medical History MRSA infection Gastric reflux History of Holter monitoring History of stress test History of echocardiogram Wears glasses Anxiety Marijuana use Chronic cough Smoker History of edema Cardiology follow-up encounter History of irregular heartbeat Suicide attempt Anemia ADHD Alcohol use disorder, mild, in early remission PTSD (post-traumatic stress disorder) Generalized anxiety disorder Bipolar disorder, unspecified Alcohol abuse Tobacco use Anxiety and depression History of multiple pulmonary nodules Palpitations Varicosities of leg History of meningitis Genital herpes ASCUS with positive high risk HPV Home Medications ?Medication ?Instructions ?Recorded ?Last Taken ?Type NK 05/18/25 Unknown History Allergy/AdvReac Type Severity Reaction Status Date / Time azithromycin (From Zithromax) Allergy Rash Verified 11/07/24 16:04 amoxicillin AdvReac Vomiting Verified 11/07/24 16:04 red dye AdvReac Vomiting Verified 11/07/24 16:04 Family History Mother Anxiety and depression Bipolar disorder Polysubstance abuse STD (female) Drug abuse Other Alcoholism Arthritis Cancer Heart disease Mental disorder Myocardial infarction Surgical History History of repair of ACL History of hip surgery History of tubal ligation History of arthroscopic knee surgery History of varicose vein stripping Social History household members: spouse and family Smoking Status: Current every day smoker tobacco type: e-cigarettes quit status: has quit before alcohol intake: current alcohol intake frequency: 3 or more drinks per day Alcohol type: beer details: 4-6, 12 ounce beers daily since age 18. substance use type: marijuana caffeine: Yes Type: carbonated beverages Number of servings: 2, coffee and tea what type of physical activity do you participate in: none seatbelt use: sometimes do you feel safe at home: Yes additional social history: - Ray Review of Systems (Anesthesia) ROS Narrative System reviewed and no additional complaints, except as documented.
--- NOTE | 2025-06-02 07:09 | PCM.PRE.AN2 ---
ASA Classification* ASA Classification ASA Classification: 2 Assessment & Plan Anesthesia* Anesthesia Assessment Anesthesia Assessment: Discussed sedation and/or anesthesia options, risks, benefits, and alternatives with patient/parents/legal guardian/POA. Questions invited. The patient/parents/legal guardian/POA seems to understand and agrees to proceed with anesthesia plan. Reviewed the physical assessment, medical history, allergy history and patient home medications list prior to surgery/procedure/anesthetic and documented any changes. Performed airway and anesthesia risk assessments. Anesthesia Type Anesthesia Type: General History Source History Obtained from:: Patient and Chart Anesthesia Focused Assessment* Temperature: 97.2 F Pulse Rate: 53 Blood Pressure: 107/75 Respiratory Rate: 16 Pulse Ox: 98 Oxygen Delivery Method: Room Air Airway Assessment Mouth opens: >3 cm Mallampati Score: II Teeth Condition: Chipped/Broken (Patient has a cracked filling in the left lower molar.) Neck Range of motion (ROM): Full ROM Labs Anesthesia Preop lab: CBC WBC 13.0 K/mm3 (4.4-11.0) H 05/05/25 16:53 05/05/25 RBC 4.47 M/mm3 (4.2-5.4) 05/05/25 16:53 05/05/25 Hgb 12.8 g/dL (12.0-15.0) 05/05/25 16:53 05/05/25 Hct 37.5 % (37-47) 05/05/25 16:53 05/05/25 Plt Count 276 K/mm3 (150-450) 05/05/25 16:53 05/05/25 CHEMISTRY Potassium 3.6 mmol/L (3.3-5.1) 05/05/25 16:53 05/05/25 Sodium 138 mmol/L (133-145) 05/05/25 16:53 05/05/25 Magnesium 2.3 mg/dL (1.5-2.2) H 05/20/25 13:16 05/20/25 Phosphorus 3.1 mg/dL (2.5-4.9) 04/16/21 14:00 04/16/21 BUN 7 mg/dL (4-19) 05/05/25 16:53 05/05/25 Creatinine 0.86 mg/dL (0.70-1.20) 05/05/25 16:53 05/05/25 Glucose 90 mg/dL (70-99) 05/05/25 16:53 05/05/25 POC Glucose 110 mg/dL (74-106) H 06/02/25 06:07 06/02/25 TSH 1.610 uIU/mL (0.358-3.740) 10/21/24 15:04 10/21/24 COAG PT 14.9 SECONDS (11.7-14.9) 12/31/23 11:11 12/31/23 Urine Test Negative Negative 08/11/20 22:44 08/11/20 Tst Clinic Negative 10/01/24 15:29 10/01/24 Pre-Assessment Diagnosis/Proposed Procedure Planned Operative Procedure(s): (B) Hysterectomy,Vaginal Poss LAVH, Bilateral Salpingectomy Anesthesia History 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 When Was Last Pacemaker Check QUESTION #4 FULL TEXT: You/Your Family Experience fever (hyperthermia) with Anesthesia Last Oral Intake Last Oral intake: Last Oral Intake NPO since 01:30 06/02/25 06:17 Meds taken in AM with sips of No 06/02/25 06:17 water? 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 Female Yes 05/19/25 08:48 HX of Motion Sickness No 05/19/25 08:48 HX of N/V After Surgery No 05/19/25 08:48 Non-Smoker No 05/19/25 08:48 Duration of Surgery greater No 05/19/25 08:48 than 60 minutes Number of Risk Factors 1 05/19/25 08:48 PONV Score Low Risk 05/19/25 08:48 Height & Weight Height & Weight: Anesthesia: Height & Weight Height 5 ft 9 in 06/02/25 06:17 Weight: 88 kg 06/02/25 06:17 Body Mass Index (BMI) 28.6 06/02/25 06:17 Respiratory Assessment Respiratory Assessment - rail car painter/sandblaster: Respiratory Tract Infection Hx - rail car painter/sandblaster Hx Respiratory Tract Infection No 05/19/25 08:48 STOP Sleep Apnea STOP Sleep Apnea - rail car painter/sandblaster: STOP Sleep Apnea - rail car painter/sandblaster Hx Hypertension No 05/19/25 08:48 Hx Sleep Apnea No 05/19/25 08:48 CPAP BIPAP Do you snore loudly (louder No 05/19/25 08:48 than talking or can be heard Do you often feel tired/ No 05/19/25 08:48 fatigued/ sleepy during daytime? Has anyone observed you stop No 05/19/25 08:48 breathing during sleep? STOP Results Negative 05/19/25 08:48 QUESTION #5 FULL TEXT : Do you snore loudly (louder than talking or can be heard through closed doors)? 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 Specify any problems Hx of Preganancy in last 3 No 05/19/25 08:48 Months Nurse Filling Out Transfusion [facility] 05/19/25 08:48 & Questions: Date: 05/19/25 05/19/25 08:48 Time: 08:56 05/19/25 08:48 Patient unable to answer at this time (ie. confused, unrespo /Reproduction History /Reproductive History - rail car painter/sandblaster: /Reproductive Hx- rail car painter/sandblaster Hx Now No 05/19/25 08:48 Gestational Age (in weeks): EDC: Hx Hx Para Hx Section SAB No 05/19/25 08:48 Active Medications Active Medications: Current Medications Generic Name Dose Route Start Last Admin Trade Name Freq PRN Reason Stop Dose Admin Acetaminophen 1,000 mg 06/02/25 07:30 06/02/25 06:22 Acetaminophen 500 Mg Tablet PO 06/02/25 07:31 1,000 mg PREOP ONE Administration Gabapentin 600 mg 06/02/25 07:30 06/02/25 06:22 Gabapentin 600 Mg Tablet PO 06/02/25 07:31 600 mg PREOP ONE Administration Lactated Ringer's 1,000 mls @ 40 mls/hr 06/02/25 07:30 06/02/25 06:22 IV 40 mls/hr .Q25H BOYD Administration Cefazolin Sodium 2 gm/ Sodium 110 mls @ 150 mls/hr 06/02/25 07:30 Chloride IV 06/02/25 08:13 INTRAOP ONE Insulin Human Lispro 0 unit 06/02/25 07:30 Insulin Lispro 100 Unit/Ml Insuln.Pen SC Q4H PRN PRN BG >/= 180, SEE PROTOCOL Protocol Ondansetron HCl 4 mg 06/02/25 07:30 Ondansetron 4 Mg/2 Ml Vial IV 06/02/25 07:31 INTRAOP ONE PFSH Medical History MRSA infection Gastric reflux History of Holter monitoring History of stress test History of echocardiogram Wears glasses Anxiety Marijuana use Chronic cough Smoker History of edema Cardiology follow-up encounter History of irregular heartbeat Suicide attempt Anemia ADHD Alcohol use disorder, mild, in early remission PTSD (post-traumatic stress disorder) Generalized anxiety disorder Bipolar disorder, unspecified Alcohol abuse Tobacco use Anxiety and depression History of multiple pulmonary nodules Palpitations Varicosities of leg History of meningitis Genital herpes ASCUS with positive high risk HPV Home Medications ?Medication ?Instructions ?Recorded ?Last Taken ?Type NK 05/18/25 Unknown History Allergy/AdvReac Type Severity Reaction Status Date / Time azithromycin (From Zithromax) Allergy Rash Verified 11/07/24 16:04 amoxicillin AdvReac Vomiting Verified 11/07/24 16:04 red dye AdvReac Vomiting Verified 11/07/24 16:04 Family History Mother Anxiety and depression Bipolar disorder Polysubstance abuse STD (female) Drug abuse Other Alcoholism Arthritis Cancer Heart disease Mental disorder Myocardial infarction Surgical History History of repair of ACL History of hip surgery History of tubal ligation History of arthroscopic knee surgery History of varicose vein stripping Social History household members: spouse and family Smoking Status: Current every day smoker tobacco type: e-cigarettes quit status: has quit before alcohol intake: current alcohol intake frequency: 3 or more drinks per day Alcohol type: beer details: 4-6, 12 ounce beers daily since age 18. substance use type: marijuana caffeine: Yes Type: carbonated beverages Number of servings: 2, coffee and tea what type of physical activity do you participate in: none seatbelt use: sometimes do you feel safe at home: Yes additional social history: - Ray Review of Systems (Anesthesia) ROS Narrative System reviewed and no additional complaints, except as documented.
[2025-06-02 07:26] LABS: Hematocrit 38.0 % (37-47); Hemoglobin 12.9 g/dL (12.0-15.0); Mean Corp Hgb Conc 33.9 g/dL (32-36); Mean Corpuscular Volume 83.9 fL (81-99); Mean Platelet Vol. 9.2 fl (6.2-12.0); Platelet Count 245 K/mm3 (150-450); RBC Distribution Width CV 13.3 % (11.6-14.6); RBC Distribution Width SD 40.8 fl (35.1-43.9); Red Blood Count 4.53 M/mm3 (4.2-5.4); White Blood Count 10.9 K/mm3 (4.4-11.0)
--- NOTE | 2025-06-02 07:30 | UT_PTH ---
PATIENT: ALPHONSO JARRETT [place] [facility] [place][id number] AGE/SX: 35/F ROOM: RE06/02/[address]: Dr. Tracey Ryan MD : 1990 BED: DIS: 06/02/2025 SPEC #: [id number] RECD: 06/02/25 11:08 STATUS: EMIL REKathleen #: [id number] NINI: 06/02/25 07:[address]: Tracey Ryan DEPT: SURGICAL PATHOLOGY RECD BY: Khari Burk ENTERED: 06/02/25 14:20 SP TYPE: UTERUS OTHR DR: Dr. Kameron Beavers MD Tissues: A - Uterus, NOS Procedures: Surgery Specimen Level V HEADER OPERATION: Hysterectomy, bilateral salpingectomy PRE-OP DIAGNOSIS: Dysmenorrhea, abnormal uterine bleeding due to adenomyosis TISSUE SUBMITTED: A- Uterus, bilateral fallopian tubes MICROSCOPIC DIAGNOSIS A. Uterus, bilateral fallopian tubes, hysterectomy, bilateral salpingectomy Cervix: Benign squamous epithelium and endocervical glandular tissue Endometrium: Proliferative endometrium with benign endometrial polyp Myometrium: Adenomyosis, leiomyoma Bilateral fallopian tubes: Benign fallopian tubes with no pathologic change MICROSCOPIC DESCRIPTION Slides are reviewed. GROSS DESCRIPTION A. Received in formalin labeled with the patient's name and date of . Designated as uterus, bilateral fallopian tubes is a 115.5 g, 7.9 x 4.9 x 4.2 cm uterus with undesignated, detached fallopian tubes. The serosa is palencia-pink with patchy congestion and marked adhesions on the anterior aspect. The attached cervix is palencia-pink to white and measures 3.8 x 3.6; the 1.4 cm os is patent. The specimen is oriented using the posterior peritoneal reflection The specimen is inked as follows: [id number]. Opening reveals a 5.7 x 2.6 cm endometrial canal lined by pink-red somewhat granular and lush endometrium measuring up to 0.3 cm thick. There is slightly irregular folding of the endometrium near the cornu which may represent a polyp (1.2 x 0.5 x 0.2 cm).. The myometrium is palencia-pink and trabeculated and measures up to 2.4 cm thick. There are 2 possible intramural leiomyomas identified, 0.5 cm to 1.0 cm. The palencia-pink bilateral fallopian tubes are fimbriated and measure 4.1 x 0.3 cm and 4.3 x 0.6 cm. Definitive paratubal cyst are not identified. [employer] Engineer sections are submitted as follows: A1: Anterior cervixA2: Posterior cervixA3: Anterior endomyometriumA4: Posterior endomyometrium with possible intramural leiomyomaA5-A6: Fallopian tubesA7: Posterior endomyometrium with slight irregular folding which may represent polypA8: Largest possible intramural leiomyoma ND 06/02/2025 CPT:97940
--- NOTE | 2025-06-02 07:30 | UT_PTH ---
PATIENT: ALPHONSO JARRETT LOC: [facility] – [place] U#:[id number] AGE/SX: 35/F ROOM: RE06/02/[address]: Dr. Tracey Ryan MD : 1990 BED: DIS: 06/02/2025 SPEC #: [id number] RECD: 06/02/25 11:08 STATUS: EMIL REKathleen #: [id number] NINI: 06/02/25 07:[address]: Tracey Ryan DEPT: SURGICAL PATHOLOGY RECD BY: Khari Burk ENTERED: 06/02/25 14:20 SP TYPE: UTERUS OTHR DR: Dr. Kameron Beavers MD Tissues: A - Uterus, NOS Procedures: Surgery Specimen Level V HEADER OPERATION: Hysterectomy, bilateral salpingectomy PRE-OP DIAGNOSIS: Dysmenorrhea, abnormal uterine bleeding due to adenomyosis TISSUE SUBMITTED: A- Uterus, bilateral fallopian tubes MICROSCOPIC DIAGNOSIS A. Uterus, bilateral fallopian tubes, hysterectomy, bilateral salpingectomy Cervix: Benign squamous epithelium and endocervical glandular tissue Endometrium: Proliferative endometrium with benign endometrial polyp Myometrium: Adenomyosis, leiomyoma Bilateral fallopian tubes: Benign fallopian tubes with no pathologic change MICROSCOPIC DESCRIPTION Slides are reviewed. GROSS DESCRIPTION A. Received in formalin labeled with the patient's name and date of . Designated as uterus, bilateral fallopian tubes is a 115.5 g, 7.9 x 4.9 x 4.2 cm uterus with undesignated, detached fallopian tubes. The serosa is palencia-pink with patchy congestion and marked adhesions on the anterior aspect. The attached cervix is palencia-pink to white and measures 3.8 x 3.6; the 1.4 cm os is patent. The specimen is oriented using the posterior peritoneal reflection The specimen is inked as follows: [id number]. Opening reveals a 5.7 x 2.6 cm endometrial canal lined by pink-red somewhat granular and lush endometrium measuring up to 0.3 cm thick. There is slightly irregular folding of the endometrium near the cornu which may represent a polyp (1.2 x 0.5 x 0.2 cm).. The myometrium is palencia-pink and trabeculated and measures up to 2.4 cm thick. There are 2 possible intramural leiomyomas identified, 0.5 cm to 1.0 cm. The palencia-pink bilateral fallopian tubes are fimbriated and measure 4.1 x 0.3 cm and 4.3 x 0.6 cm. Definitive paratubal cyst are not identified. Scrap Baler sections are submitted as follows: A1: Anterior cervixA2: Posterior cervixA3: Anterior endomyometriumA4: Posterior endomyometrium with possible intramural leiomyomaA5-A6: Fallopian tubesA7: Posterior endomyometrium with slight irregular folding which may represent polypA8: Largest possible intramural leiomyoma [place] 06/02/2025 CPT:01805
--- NOTE | 2025-06-02 09:23 | PCM.OPRPT ---
Problems Associated Problem List Diagnoses (1) Dysmenorrhea: (2) Abnormal uterine bleeding due to adenomyosis: (3) Stenosis, cervix: (4) Red blood cell antibody positive: Multi Select Codes Urinary/Genital Urinary/Genital CPT Codes: 06057 TVH+BS/O <250gr uterus Operative Report (Standard) Operative Information Date of Procedure: 06/02/25 Pre-Operative Diagnosis: see problem list details Post-Operative Diagnosis: same Surgery/Procedure Performed: total vaginal hysterectomy bilateral salpingectomy production department supervisor: Yes Lead Laying And Gluing Machine Operator: Tonny Medeiros Tasks completed by buyer assistant: Opening & closing and Retracting Type of Anesthesia: General RN Documented Start/Stop Times: Operation Date: 06/02/25 07:30 Case Time Into Pre-Op 06/02/25 05:48 Out of Pre-Op 06/02/25 07:26 Anesthesia Start 06/02/25 07:30 Into Room 06/02/25 07:30 Procedure Start 06/02/25 07:57 Procedure Start Time: 07:57 Procedure Stop Time: 09:15 Select all DRAINS/GRAFTS/IMPLANTS that apply: Drains Drain details: dooley Estimated Blood Loss: 100 Specimen collected: Yes Description of specimen(s) removed: uterus tubes Description of surgery: Patient was taken to the operating room and was placed under general anesthesia was prepped and draped in normal sterile fashion in the dorsal lithotomy position. Preoperative antibiotics and SCDs and Dooley catheter was placed inside the bladder. Weighted speculum was placed in the vagina and the anterior and posterior lip of the cervix was grasped with 2 Christofer clamps and circumferentially injected with dilute vasopressin. A circumferential incision was made with a scalpel and the posterior cul-de-sac was entered into sharply and a longneck speculum was placed. The anterior cul-de-sac was also dissected down and entered into sharply and the uterosacral ligaments were clamped cut and suture ligated bilaterally followed by the cardinal ligaments which were Clamped cut and suture ligated bilaterally with 0 Monocryl. The uterus serially descended and progressive bites were taken bilaterally up to the level of the utero-ovarian ligament bilaterally which was clamped transected and double ligated with 0 Monocryl suture and 0 Vicryl free tie. Bilateral ovaries were well visualized and noted be within normal limits and the bilateral tubes were visualized and clamped with a veena clamp and cut removed suture ligated with 0 monocryl without complication.. The vagina was closed with [id number] 0 Vicryl pop offs including the posterior and anterior peritoneum in the reapproximation. Excellent hemostasis was noted. All instruments removed from the vagina clear urine was noted at the end of the procedure. Surgical Findings: nl uterus and ovaries. Complications Complications: No
--- NOTE | 2025-06-02 09:23 | PCM.OPRPT ---
Problems Associated Problem List Diagnoses (1) Dysmenorrhea: (2) Abnormal uterine bleeding due to adenomyosis: (3) Stenosis, cervix: (4) Red blood cell antibody positive: Multi Select Codes Urinary/Genital Urinary/Genital CPT Codes: 71949 TVH+BS/O <250gr uterus Operative Report (Standard) Operative Information Date of Procedure: 06/02/25 Pre-Operative Diagnosis: see problem list details Post-Operative Diagnosis: same Surgery/Procedure Performed: total vaginal hysterectomy bilateral salpingectomy county extension agent: Yes Demolition Engineer: Tonny Medeiros Tasks completed by primary teaching assistant: Opening & closing and Retracting Type of Anesthesia: General RN Documented Start/Stop Times: Operation Date: 06/02/25 07:30 Case Time Into Pre-Op 06/02/25 05:48 Out of Pre-Op 06/02/25 07:26 Anesthesia Start 06/02/25 07:30 Into Room 06/02/25 07:30 Procedure Start 06/02/25 07:57 Procedure Start Time: 07:57 Procedure Stop Time: 09:15 Select all DRAINS/GRAFTS/IMPLANTS that apply: Drains Drain details: dooley Estimated Blood Loss: 100 Specimen collected: Yes Description of specimen(s) removed: uterus tubes Description of surgery: Patient was taken to the operating room and was placed under general anesthesia was prepped and draped in normal sterile fashion in the dorsal lithotomy position. Preoperative antibiotics and SCDs and Dooley catheter was placed inside the bladder. Weighted speculum was placed in the vagina and the anterior and posterior lip of the cervix was grasped with 2 Christofer clamps and circumferentially injected with dilute vasopressin. A circumferential incision was made with a scalpel and the posterior cul-de-sac was entered into sharply and a longneck speculum was placed. The anterior cul-de-sac was also dissected down and entered into sharply and the uterosacral ligaments were clamped cut and suture ligated bilaterally followed by the cardinal ligaments which were Clamped cut and suture ligated bilaterally with 0 Monocryl. The uterus serially descended and progressive bites were taken bilaterally up to the level of the utero-ovarian ligament bilaterally which was clamped transected and double ligated with 0 Monocryl suture and 0 Vicryl free tie. Bilateral ovaries were well visualized and noted be within normal limits and the bilateral tubes were visualized and clamped with a veena clamp and cut removed suture ligated with 0 monocryl without complication.. The vagina was closed with [id number] 0 Vicryl pop offs including the posterior and anterior peritoneum in the reapproximation. Excellent hemostasis was noted. All instruments removed from the vagina clear urine was noted at the end of the procedure. Surgical Findings: nl uterus and ovaries. Complications Complications: No
--- NOTE | 2025-06-02 09:29 | DCINST_ITS ---
Discharge Instructions DC O2, CPAP, BIPAP needs Home O2 Discharge instructions: No Dressing / Incision Discharge Activity: Return to Normal Activity, May Not Drive (while taking narcotic pain medications.) and May Shower May resume sexual activity in: 6-8 weeks Dressing / Incision Call your doctor if your incision/area has: Continuous Slow Oozing, Sudden Increased Bleeding, Increased Pain/ Swelling, Increased Redness and Foul Smelling Discharge Call your doctor if you observe: Fever of 101 or Higher, Inability to urinate, Inability to have a bowel movement and Using more than 1 pad per hour Follow Up Care Please Follow Up With: Tracey Ryan MD Test Results: Test results from this visit will be discussed in further detail at your follow- up appointment, if applicable. Discharge Plan Admission Attending Provider: Tracey Ryan Primary Care Provider: Kameron Beavers Instructions Print Language: [place] Discharge Orders/Prescriptions Prescriptions: No Action NK Referrals / Follow Up: Kameron Beavers MD [Primary Care Provider] - Disposition Disposition (needs filled in before D/C Order can be placed): Home, Self Care
--- NOTE | 2025-06-02 09:44 | PCM.POST.ANE ---
Anesthesia: Postop Eval I Current Vital Signs Temperature: 97.5 F Pulse Rate: 86 Blood Pressure: 130/83 Respiratory Rate: 14 Pulse Ox: 98 Assessment Airway patent: Yes Spontaneous unlabored respirations: Yes nausea: No Vomiting: No Anesthesia Complication: No Fluid Hydration Crystalloid volume administer (ml): 1,200 Total IV fluid infused: 1,200 Progress Note Anesthesia document: Postop Eval 1 completed: Yes
[2025-06-02] MEDS: Ketorolac 30 MG/ML Syringe IV (10:22)
[2025-06-02 12:47] LABS: Hematocrit 40.4 % (37-47); Hemoglobin 13.9 g/dL (12.0-15.0); Mean Corp Hgb Conc 34.4 g/dL (32-36); Mean Corpuscular Volume 84.0 fL (81-99); Mean Platelet Vol. 9.7 fl (6.2-12.0); Platelet Count 235 K/mm3 (150-450); RBC Distribution Width CV 13.3 % (11.6-14.6); RBC Distribution Width SD 40.8 fl (35.1-43.9); Red Blood Count 4.81 M/mm3 (4.2-5.4); White Blood Count 16.5 K/mm3 (4.4-11.0)
--- NOTE | 2025-06-02 19:05 | POSTOPAN2_ITS ---
Anesthesia Postop Eval I Sum Postop Eval Completion status Anesthesia document: Postop Eval 1 completed: Yes Anesthesia Postop Eval I Summary Anesthesia Postop Eval I Summary: Anesthesia Postop Eval I: Assessment Summary Airway patent Yes 06/02/25 09:44 FACILITY [email or web address] Spontaneous unlabored Yes 06/02/25 09:44 FACILITY [email or web address] respirations Mental status nausea No 06/02/25 09:44 FACILITY [email or web address] Vomiting No 06/02/25 09:44 FACILITY [email or web address] Anesthesia Postop Eval I: Fluid Summary Crystalloid volume administer 1,200 06/02/25 09:44 FACILITY [email or web address] (ml) Colloids volume administered ( ml) Blood Product volume administered (ml) Total IV fluid infused 1,200 06/02/25 09:44 FACILITY [email or web address] Anesthesia Postop Eval I: Summary Notes Anesthesia Complication No 06/02/25 09:44 FACILITY [email or web address] Anesthesia Complication Comment: Post-operative progress note Anesthesia: Postop Eval II Evaluation Mental status: Awake and Calm Pain Level: 2 nausea: No Vomiting: No Complications Anesthesia Complication: No
--- NOTE | 2025-06-02 19:05 | POSTOPAN2_ITS ---
Anesthesia Postop Eval I Sum Postop Eval Completion status Anesthesia document: Postop Eval 1 completed: Yes Anesthesia Postop Eval I Summary Anesthesia Postop Eval I Summary: Anesthesia Postop Eval I: Assessment Summary Airway patent Yes 06/02/25 09:44 CHAINSTITCH [email or web address] Spontaneous unlabored Yes 06/02/25 09:44 CHAINSTITCH [email or web address] respirations Mental status nausea No 06/02/25 09:44 CHAINSTITCH [email or web address] Vomiting No 06/02/25 09:44 CHAINSTITCH [email or web address] Anesthesia Postop Eval I: Fluid Summary Crystalloid volume administer 1,200 06/02/25 09:44 CHAINSTITCH [email or web address] (ml) Colloids volume administered ( ml) Blood Product volume administered (ml) Total IV fluid infused 1,200 06/02/25 09:44 CHAINSTITCH [email or web address] Anesthesia Postop Eval I: Summary Notes Anesthesia Complication No 06/02/25 09:44 CHAINSTITCH [email or web address] Anesthesia Complication Comment: Post-operative progress note Anesthesia: Postop Eval II Evaluation Mental status: Awake and Calm Pain Level: 2 nausea: No Vomiting: No Complications Anesthesia Complication: No
--- NOTE | 2025-06-02 19:05 | PCM.POSTANE2 ---
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 Anesthesia Postop Eval I: Fluid Summary Crystalloid volume administer 1,200 06/02/25 09:44 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
--- NOTE | 2025-06-02 19:05 | PCM.POSTANE2 ---
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
== END 2025-06-02 14:29 | disposition home or self-care (01) ==
LOC: SDC 05:33 → AC 05:33
PROVIDERS: PCP Family Medicine; Referring Provider Obstetrics & Gynecology; Visit Provider Obstetrics & Gynecology
PROC: (CPT 58260; principal; 2025-06-02 07:10)
DX: N80.03 Adenomyosis of the uterus (principal); F17.290 Nicotine dependence, other tobacco product, uncomplicated; N88.2 Stricture and stenosis of cervix uteri; N84.0 Polyp of corpus uteri; D25.9 Leiomyoma of uterus, unspecified; K21.9 Gastro-esophageal reflux disease without esophagitis
CPT/HCPCS: 58262; 00944; 82962; 83735; 85027; 86735; 86762; 86765; 86787; 86850; 86870; 86900; 86901; 86920; 86922; 88307; A4216; J2405; J3475

== ENCOUNTER 2025-06-14 08:53 | Emergency (ER) | payer BC, SELFPAY ==
[2025-06-14 08:54] VITALS: BP 130/100; PULSE 79; RESP 15; TEMP 36.2; O2SAT 100; BMI 28.2
--- NOTE | 2025-06-14 09:19 | EDS_ITS ---
HPI HPI - Female History of Present Illness Chief Complaint: Vag Bleeding Informant: patient Bleeding Issue: Positive for Vaginal bleeding Context: Gradual Onset Timing: Continuous Current Severity: Mild Associated Symptoms Associated Symptoms: Positive for Frequency; Negative for Dysuria or Urgency Narrative Narrative: Patient presents with vaginal bleeding that has been getting worse over the past couple days. Patient states she had a hysterectomy on 06/02/2025. Patient states she has been having some minimal bleeding since the surgery. Patient states that yesterday she started noticing some heavier bleeding. Patient admits to some nausea but denies any vomiting. Patient states her pain has not gotten any worse since the surgery. Patient admits to some urinary frequency but denies any dysuria. Patient denies any fevers or chills. PFSH PFSH Medical History MRSA infection Gastric reflux History of Holter monitoring History of stress test History of echocardiogram Wears glasses Anxiety Marijuana use Chronic cough Smoker History of edema Cardiology follow-up encounter History of irregular heartbeat Suicide attempt Anemia ADHD Alcohol use disorder, mild, in early remission PTSD (post-traumatic stress disorder) Generalized anxiety disorder Bipolar disorder, unspecified Alcohol abuse Tobacco use Anxiety and depression History of multiple pulmonary nodules Palpitations Varicosities of leg History of meningitis Genital herpes ASCUS with positive high risk HPV Home Medications ?Medication ?Instructions ?Recorded ?Last Taken ?Type NK 06/14/25 Unknown History Allergy/AdvReac Type Severity Reaction Status Date / Time azithromycin (From Zithromax) Allergy Rash Verified 06/14/25 08:53 amoxicillin AdvReac Vomiting Verified 06/14/25 08:53 red dye AdvReac Vomiting Verified 06/14/25 08:53 Family History Mother Anxiety and depression Bipolar disorder Polysubstance abuse STD (female) Drug abuse Other Alcoholism Arthritis Cancer Heart disease Mental disorder Myocardial infarction Surgical History Status post bilateral salpingectomy History of total vaginal hysterectomy (TVH) History of repair of ACL History of hip surgery History of tubal ligation History of arthroscopic knee surgery History of varicose vein stripping Social History household members: spouse and family Smoking Status: Unknown if ever smoked quit status: has quit before alcohol intake: current alcohol intake frequency: 3 or more drinks per day Alcohol type: beer details: 4-6, 12 ounce beers daily since age 18. substance use type: marijuana caffeine: Yes Type: carbonated beverages Number of servings: 2, coffee and tea what type of physical activity do you participate in: none seatbelt use: sometimes do you feel safe at home: Yes additional social history: - Ray ROS ROS ED Constitutional Constitutional ED: Denies chills or fever(s) Eyes Eyes: Denies blurry vision or change in vision ENT ENT ED: Denies rhinorrhea or sore throat Cardiovascular Cardiovascular: Denies chest pain or palpitations Respiratory/Chest Respiratory/Chest: Denies cough or dyspnea Gastrointestinal Gastrointestinal: Reports nausea; Denies vomiting Genitourinary Genitourinary ED: Denies dysuria or hematuria Musculoskeletal Musculoskeletal: Denies back pain or neck pain Integumentary Denies abscess or rash Neurologic Neurologic: Denies headache(s) or weakness Allergic/Immunologic Allergic/Immunologic ED: Denies mouth swelling or urticaria EXAM Physical Exam Const Vital Signs: 06/14/25 08:54 06/14/25 12:00 Temperature 97.2 F L 98.1 F Temperature Source Temporal Oral Pulse Rate 79 83 Respiratory Rate 15 16 Blood Pressure 130/100 H 118/75 Blood Pressure Mean 110 89 Pulse Ox 100 100 Oxygen Delivery Method Room Air Room Air Positive well nourished and well developed Constitutional Narrative: BMI is 28.2. General Appearance ED: well developed and NAD HEENT Reports moist mucous membranes Neck supple and no JVD Resp normal respiratory effort and clear to auscultation bilaterally Cardio regular rate and regular rhythm GI soft to palpation, non-tender and non-distended Narrative: Pelvic exam showed a clot in the vaginal cuff. There is mild amount of dark blood noted. There is no evidence of wound dehiscence. There is no vaginal discharge noted. Neuro oriented x3, CN's II-XII intact bilaterally and no sensory deficits noted Sensorium / Orientation: alert Motor Exam: strength 5/5 throughout Psych mental status grossly normal MDM MDM MDM Narrative Medical decision making narrative: Differential diagnosis includes wound dehiscence, abscess, electrolyte abnormality, coagulopathy, and urinary tract infection. CBC will be obtained to assess for leukocytosis and anemia. Basic metabolic profile will be obtained to assess for electrolyte abnormality and renal function. PT with INR PTT will be obtained to assess for coagulopathy. Urinalysis will be obtained to assess for urinary tract infection and hematuria. CT scan of the abdomen and pelvis will be obtained to assess for abscess, bleeding, and wound dehiscence. History & Record Review Additional record(s) reviewed:: Prior outpatient record, Prior ED visit and Prior labs Lab Data Attestation: I reviewed the patient's lab results. Lab results narrative: CBC was reviewed. There is a slight leukocytosis of 11.5. This is improved from previous result. The remainder is within normal limits. Basic metabolic profile was reviewed and was within normal limits. PT with INR and PTT were reviewed and were within normal limits. Urinalysis was reviewed. There is no evidence of urinary tract infection or hematuria. Labs: Laboratory Results - last 24 hr 06/14/25 06/14/25 10:00 10:06 WBC 11.5 H RBC 4.86 Hgb 13.8 Hct 40.6 MCV 83.5 MCH 28.4 MCHC 34.0 RDW Std Deviation 40.8 RDW Coeff of Ludwin 13.2 Plt Count 241 MPV 10.1 Immature Gran % (Auto) 0.500 Neut % (Auto) 65.1 Lymph % (Auto) 21.8 Cow[place] % (Auto) 7.3 Eos % (Auto) 4.4 Baso % (Auto) 0.9 Absolute Neuts (auto) 7.5 Absolute Lymphs (auto) 2.51 Nucleated RBC % 0 PT 13.7 INR 1.0 APTT 26.0 Sodium 138 Potassium 4.2 Chloride 105 Carbon Dioxide 21.8 Anion Gap 11 BUN 11 Creatinine 0.91 Estim Creat Clear Calc 102.31 Est GFR (MDRD) Non-Af 85 BUN/Creatinine Ratio 12.3 Glucose 93 Calcium 9.1 Urine Color Yellow Urine Clarity Sl. Cloudy Urine pH 6.5 Ur Specific [place] 1.015 Urine Protein 15 H Urine Glucose (UA) Normal Urine Ketones Negative Urine Occult Blood 50 H Urine Nitrite Negative Urine Bilirubin Negative Urine Urobilinogen Normal Ur Leukocyte Esterase Negative Urine RBC 0-5 SEEN Urine WBC 0 SEEN Ur Squamous Epith Cells 0-5 SEEN Urine Bacteria 0 SEEN Urine Mucus 0 SEEN Radiography Diagnostic Testing: Clinical Impression(s) from Imaging Studies Abdomen/Pelvis CT 06/14/25 09:53 IMPRESSION: Cholelithiasis. Ovulation. Otherwise, no acute findings. Reading Location: [facility] CT scan of the abdomen and pelvis was obtained. There is evidence of cholelithiasis. There is no free air or free fluid noted. This was interpreted by the radiologist and was also independently reviewed by myself. Treatment and Re-Evaluation Narrative: Patient was given IV fluids. Patient was feeling better on reevaluation. Case was discussed with Amelia Morales, nurse paper sample clerk with [employer] C[employer]PER[employer]. She recommended obtaining a vaginal culture. This was obtained. Patient was instructed to follow-up with Dr. Tracey Ryan as scheduled. Patient was instructed to return if worse in any way. Patient understood and was agreeable with the plan. All questions were answered. Discharge Plan Triage Chief Complaint: Vag Bleeding ED Provider: Rohit Liu Dx/Rx/DC Orders Clinical Impression: Postoperative vaginal bleeding, Nicotine vapor product user Instructions: ED Post Op Wound Check, Bleeding Prescriptions: No Action NK Primary Care Provider: Kameron Beavers Referrals: Kameron Beavers MD [Primary Care Provider] - 5-7 Days Tracey Ryan MD [Med Staff - Active Staff] - 3-5 Days Print Language: Occ[place] Disposition Disposition: Home, Self Care
--- OUTSIDE RECORDS SUMMARY | 2025-06-14 09:49 | XMS RPT_ITS | CCD ---
Author Organization [facility] [employer]EWEL[employer] SALES [employer]OCI[employer] [facility] Care Team Providers Care Audio Visual Production Specialist Name Role Phone Miguel TAVAREZ, Andry Bass Unavailable [phone] Felipe PADGETT, Nabil Marrero Unavailable Rober Saba DO Primary Care Provider Rober Saba DO Primary Care Provider Rober Saba DO Primary Care Provider Rober Saba DO Primary Care Provider MAST FILENET P8 DEVELOPER-AIRLINE COUNTER AGENT, FLOR Attending Unavailabl e MAST FILENET P8 DEVELOPER-AIRLINE COUNTER AGENT, FLOR Primary Care Unavailabl e MAST FILENET P8 DEVELOPER-AIRLINE COUNTER AGENT, FLOR Attending Unavailabl e MAST FILENET P8 DEVELOPER-AIRLINE COUNTER AGENT, FLOR Primary Care Unavailabl e ROBER SABA [...] HARRIS Attending Unavailable Unavailable Primary Care Provider UnavailYasmine Blue Referring Unavailable Yasmine Beavers Primary Care Unavailable Yasmine Beavers Attending Unavailable Schinner, Yasmine E Primary Care Unavailable Schinner, Yasmine E Consulting Unavailable Tracey Ryan Attending Unavailable Tracey Ryan Referring Unavailable MarcpatoonyTracey Consulting Unavailable Schinner, Yasmine E Primary Care Unavailable Tracey Ryan Attending Unavailable CaitlynonyTracey Consulting Unavailable MarcanthonyTracey Referring Unavailable Schinner, Yasmine E Primary Care Unavailable Schinner, Yasmine E Referring Unavailable Tracey Ryan Attending Unavailable Schinner, Yasmine E Primary Care Unavailable CaitlynonyTracey Attending Unavailable Schinner, Yasmine E Referring Unavailable Schinner, Yasmine E Primary Care Unavailable Schinner, Yasmine E Referring Unavailable MarcanthonyTracey Attending Unavailable Schinner, Yasmine E Primary Care Unavailable Bud GOFF, Irene Attending Unavailable Schinner, Yasmine E Referring Unavailable Rohit Conteh Attending Unavailable Schinner, Yasmine E Primary Care Unavailable Schinner, Yasmine E Referring Unavailable Schinner, Yasmine E Primary Care Unavailable Schinner, Yasmine E Referring Unavailable Tracey Ryan Attending Unavailable Angel Harris Referring Unavailable MoodisAngel ramirez Consulting Unavailable Schinner, Yasmine E Primary Care Unavailable Rambo Tompkins Attending Unavailable Schinner, Yasmine E Primary Care Unavailable Schinner, Yasmine E Referring Unavailable Schinner, Yasmine E Attending Unavailable Schinner, Yasmine E Primary Care Unavailable CaitlynonyTracey Attending Unavailable MarcanthonyTracey Referring Unavailable Schinner, Yasmine E Attending Unavailable Schinner, Yasmine E Primary Care Unavailable Schinner, Yasmine E Referring Unavailable Schinner, Yasmine E Primary Care Unavailable Renee FRONT MAKER LOCKSTITCH, Zoe Referring Unavailable Zoe Duran NP Attending Unavailable Schinner, Yasmine E Referring Unavailable Schinner, Yasmine E Primary Care Unavailable Schinner, Yasmine E Attending Unavailable Schinner, Yasmine E Consulting Unavailable Schinner, Yasmine E Primary Care Unavailable Tracey Ryan Attending Unavailable Tracey Ryan Referring Unavailable Angel Harris Referring Unavailable MoodAngel barker Attending Unavailable Schinner, Yasmine E Primary Care Unavailable Schinner, Yasmine E Primary Care Unavailable Angel Gupta Referring Unavailable Angel Gupta Attending Unavailable Allergies Allergy Classification Reported Allergen(s) Allergy Type Date of Onset Reaction(s) Facility (2 sources) Azithromycin Drug Allergy 1 rash [facility] Work Phone: (2 sources) RED DYE 40 drug allergy 1 [facility] Work Phone: (20 sources) Azithromycin; Translations: [AZITHROMYCIN] Drug Allergy 9 Rash [facility] (3 sources) Amoxicillin Drug Allergy 4 Vomiting, Nausea and Vomiting [facility] (1 source) Amoxicillin Drug Allergy [facility] (1 source) Azithromycin Drug Allergy [facility] (1 source) Amoxicillin Drug Allergy 4 [facility] (1 source) Azithromycin Drug Allergy 4 [facility] (1 source) Contrast media Drug allergy (disorder) 4 [facility] Repository Medications Current Medications Medication Drug Class(es) [...] willian th at bedtime as needed for up to 30 days. 24 hr buPROPion hydrochloride 300 mg extended release oral tablet (1 source) Aminoketone Start: 02-18-20 24 take 1 tablet by mouth once daily in the morning Wellbutrin XL 300 MG tablet XL Take 1 tablet by mouth daily every morning. 02/18/2024 Active cariprazine 1.5 mg oral capsule (1 source) Atypical Antipsychotic Start: 08-07-20 24 take 1 capsule by mouth once daily [...] on above: Take 1 capsule by mo [facility] four times daily for 7 [...] tablet by mouth every twelve hours naproxen [id number] Nabil Wang PA-C Completed/Discontinued Medications Medication Drug [...] Take as needed for muscle spasm baclofen [id number] Nabil Wang PA-C cholecalciferol 0.125 mg oral capsule (13 sources) Vitamin D Start: 06-16-2022 End: 12-18-2022 take 1 capsule by mouth once daily Cholecalciferol, Vitamin D3, 125 mcg (5,000 unit) cap Indications: Vitamin D deficiency Take 1 capsule by mouth once daily. 90 capsule 3 06/16/2022 12/18/2022 Discontinued (Discontinued by Patient) Comment on above: Take 1 capsule by [facility] once daily. gabapentin 300 [...] Comment on above: Take 1 capsule by [facility] three times daily for 30 days. ibuprofen 600 mg oral tablet (20 sources) Nonsteroidal Anti-inflammatory Drug Start: 08-23-20 20 ibuprofen (MOTRIN) 600 mg tablet Indications: Varicose [...] to 2 tablets as needed. ondansetron hcl [id number] Nabil Wang PA-C QUEtiapine 200 mg oral tablet (15 sources) Atypical Antipsychotic Start: 04-27-20 take 1 tablet by mouth once daily [...] oral tablet (1 source) Opioid Agonist Start: take 1 tablet by mouth every six [...] 50mg, max dose 300mg for >65y/o tramadol [id number] Andry Rivera MD traZODone hydrochloride 100 mg [...] Episodic Immunizations and screening for infectious disease (3 sources) Encounter for screening for infections with a predominantly sexual mode of transmission; Translations: [Other specified abnormal immunological findings in serum] Onset: 09-14-2023 Episodic Joint disorders and dislocations; trauma-related (2 sources) Other articular cartilage disorders, right hip; Translations: [Articular cartilage disorder, pelvic region and thigh] Onset: 12-10-2020 12-10-2020 Chronic Menstrual disorders (3 sources) Dysmenorrhea, unspecified; Translations: [Excessive and frequent [...] Onset: 04-30-2025 Episodic Other female genital disorders (2 sources) Abnormal uterine and vaginal bleeding, unspecified; Translations: [Abnormal uterine and vaginal bleeding, unspecified] Onset: 05-18-2025 Chronic Other female genital disorders (1 source) Stricture and stenosis of cervix uteri; Translations: [Stricture and stenosis of cervix uteri] Onset: 06-02-2025 Episodic Other gastrointestinal disorders (2 sources) Dysphagia; [...] 11-14-2021 Unclassified (1 source) NO SHOW Unclassified (2 sources) Adenomyosis of the uterus; Translations: [Adenomyosis of the uterus] Onset: 05-18-2025 Viral infection (2 sources) Herpesviral infection of [...] for contraceptive management, unspecified] Onset: 10-01-2024 Episodic Other connective tissue disease (1 source) [...] Translations: [Acne vulgaris] Onset: 09-10-2019 09-10-2019 Episodic Unclassified (2 sources) Problem Varicose veins of lower extremity (20 sources) Venous varices; Translations: [Asymptomatic varicose veins of unspecified lower extremity] Onset: 03-21-2013 11-14-2021 Episodic Results Test Name Value Interpretation Reference Range Facility Bedside Glucoseon 06-02-2025 FINGERSTICK GLU 110 mg/dL High 74-106 [facility] Comment on above: Result Comment: GABBIE DUTTA OF PATIENT CARE PER NURSING PROTOCOL Performed By: #### L 501.080 #### [facility] [address] [place], [address] CBC-Complete Blood Cnt No Di ffon 06-02-2025 Erythrocyte distribution width (RBC) [Ratio] 13.3 % Normal 11.6-14.6 [facility] Comment on above: Performed By: #### L 3100.5400 #### [facility] [address] [place], [address] Hematocrit (Bld) [Volume fraction] 40.4 % Normal 37-47 [facility] Comment on above: Performed By: #### L 3100.5400 #### [facility] [address] [place], [address] Hemoglobin (Bld) [Mass/Vol] 13.9 g/dL Normal 12.0-15.0 [facility] Comment on above: Performed By: #### L 3100.5400 #### [facility] [address] [place], [address] MCH (RBC) [Entitic mass] 28.9 pg Normal 27.0-32.0 [facility] Comment on above: Performed By: #### L 3100.5400 #### [facility] [address] [place], [address] MCHC (RBC) [Mass/Vol] 34.4 g/dL Normal 32-36 [facility] Comment on above: Performed By: #### L 3100.5400 #### [facility] [address] [place], [address] MCV (RBC) [Entitic vol] 84.0 fL Normal 81-99 [facility] Comment on above: Performed By: #### L 3100.5400 #### [facility] [address] [place], [address] Platelet mean volume (Bld) [Entitic vol] 9.7 fL Normal 6.2-12.0 [facility] Comment on above: Performed By: #### L 3100.5400 #### [facility] [address] [place], [address] Platelets (Bld) [#/Vol] 235 10*3/uL Normal 150-450 [facility] Comment on above: Performed By: #### L 3100.5400 #### [facility] [address] [place], [address] RBC (Bld) [#/Vol] 4.81 10*6/uL Normal 4.2-5.4 [facility] Comment on above: Performed By: #### L 3100.5400 #### [facility] [address] [place], [address] RDW SD 40.8 fl Normal 35.1-43.9 [facility] Comment on above: Performed By: #### L 3100.5400 #### [facility] [address] [place], [address] WBC (Bld) [#/Vol] 16.5 10*3/uL High 4.4-11.0 [facility] Comment on above: Performed By: #### L 3100.5400 #### [facility] [address] [place], [address] Erythrocyte distribution width (RBC) [Ratio] 13.3 % Normal 11.6-14.6 [facility] Comment on above: Performed By: #### L 100.0500 #### [facility] [address] [place], [address] Hematocrit (Bld) [Volume fraction] 38.0 % Normal 37-47 [facility] Comment on above: Performed By: #### L 100.0500 #### [facility] [address] [place], [address] Hemoglobin (Bld) [Mass/Vol] 12.9 g/dL Normal 12.0-15.0 [facility] Comment on above: Performed By: #### L 100.0500 #### [facility] [address] [place], [address] MCH (RBC) [Entitic mass] 28.5 pg Normal 27.0-32.0 [facility] Comment on above: Performed By: #### L 100.0500 #### [facility] [address] [place], [address] MCHC (RBC) [Mass/Vol] 33.9 g/dL Normal 32-36 [facility] Comment on above: Performed By: #### L 100.0500 #### [facility] [address] [place], [address] MCV (RBC) [Entitic vol] 83.9 fL Normal 81-99 [facility] Comment on above: Performed By: #### L 100.0500 #### [facility] [address] [place], [address] Platelet mean volume (Bld) [Entitic vol] 9.2 fL Normal 6.2-12.0 [facility] Comment on above: Performed By: #### L 100.0500 #### [facility] [address] [place], [address] Platelets (Bld) [#/Vol] 245 10*3/uL Normal 150-450 [facility] Comment on above: Performed By: #### L 100.0500 #### [facility] [address] [place], [address] RBC (Bld) [#/Vol] 4.53 10*6/uL Normal 4.2-5.4 [facility] Comment on above: Performed By: #### L 100.0500 #### [facility] [address] [place], [address] RDW SD 40.8 fl Normal 35.1-43.9 [facility] Comment on above: Performed By: #### L 100.0500 #### [facility] [address] [place], [address] WBC (Bld) [#/Vol] 10.9 10*3/uL Normal 4.4-11.0 [facility] Comment on above: Performed By: #### L 100.0500 #### [facility] [address] [place], [address] Discharge Instructionon 05-19 Discharge Instruction [facility] Medical Records Department [address] [place] [address] Instructions for Home/Discharge Instructions 06/02/25 0929 MR#: [id number] Acct: [id number] Name: SUSANA MCCLAIN Rep #: [id number] : 1990 35 From: Tracey Ryan MD PCP: Dr. Yasmine Beavers MD Status:REG [facility] Discharge Instructions DC O2, CPAP, BIPAP needs Home O2 Discharge instructions: No Dressing / Incision Discharge Activity: Return to Normal Activity, May Not Drive (while taking narcotic pain medications.) and May Shower May resume sexual activity in: 6-8 weeks Dressing / Incision Call your doctor if your incision/area has: Continuous Slow Oozing, Sudden Increased Bleeding, Increased Pain/ Swelling, Increased Redness and Foul Smelling Discharge Call your doctor if you observe: Fever of 101 or Higher, Inability to urinate, Inability to have a bowel movement and Using more than 1 pad per hour Follow Up Care Please Follow Up With: Tracey Ryan MD Test Results: Test results from this visit will be discussed in further detail at your follow-up appointment, if applicable. Discharge Plan Admission Attending Provider: Tracey Ryan Primary Care Provider: Yasmine Beavers Instructions Print Language: Citizen Of [place] Discharge Orders/Prescriptions Prescriptions: No Action NK Referrals / Follow Up: Yasmine Beavers MD [Primary Care Provider] - Disposition Disposition (needs filled in before D/C Order can be placed): Home, Self Care 06/02/25928 Tracey Ryan MD CC: Dr. Yasmine Beavers MD Signed [facility] MR/POSTOP.ANEon 06-02-2025 MR/POSTOP.[facility] Medical Records Department [address] [place] [address] Anesthesia Postop Eval I 06/02/25943 MR#: [id number] Acct: [id number] Name: CHRISTOPHER MCCLAINCANDELARIA GREENWOOD Rep #: [id number] : 1990 35 From: Paul Bo CRNA PCP: Dr. Yasmine Beavers MD Status:REG [facility] Y Race: C Location: [place] [address] Anesthesia: Postop Eval I Current Vital Signs Temperature: 97.5 F Pulse Rate: 86 Blood Pressure: 130/83 Respiratory Rate: 14 Pulse Ox: 98 Assessment Airway patent: Yes Spontaneous unlabored respirations: Yes nausea: No Vomiting: No Anesthesia Complication: No Fluid Hydration Crystalloid volume administer (ml): 1,200 Total IV fluid infused: 1,200 Progress Note Anesthesia document: Postop Eval 1 completed: Yes 06/02/25943 Date Paul Bo INSPECTOR BRAKE LINING Cosigner Signature: Date CC: Signed [facility] MR/[id number] 06-02-2025 MR/POSTOPAN2 [facility] Medical Records Department [address] [place] [address] Anesthesia Postop Eval II 06/02/251904 MR#: [id number] Acct: [id number] Name: SUSANA MCCLAIN Rep #: [id number] : 1990 35 From: Humberto Bell MD PCP: Dr. Yasmine Beavers MD Status:[facility] Y Race: C Location: [facility] Anesthesia Postop Eval I Sum Postop Eval Completion status Anesthesia document: Postop Eval 1 completed: Yes Anesthesia Postop Eval I Summary Anesthesia Postop Eval I Summary: Anesthesia Postop Eval I: Assessment Summary Airway patent Yes 06/02/25 09:44 INSPECTOR BRAKE LINING.TNES Spontaneous unlabored Yes 06/02/25 09:44 INSPECTOR BRAKE LINING.TNES respirations Mental status nausea No 06/02/25 09:44 INSPECTOR BRAKE LINING.TNES Vomiting No 06/02/25 09:44 INSPECTOR BRAKE LINING.TNES Anesthesia Postop Eval I: Fluid Summary Crystalloid volume administer 1,200 06/02/25 09:44 INSPECTOR BRAKE LINING.TNES (ml) Colloids volume administered ( ml) Blood Product volume administered (ml) Total IV fluid infused 1,200 06/02/25 09:44 INSPECTOR BRAKE LINING.TNES Anesthesia Postop Eval I: Summary Notes Anesthesia Complication No 06/02/25 09:44 INSPECTOR BRAKE LINING.TNES Anesthesia Complication Comment: Post-operative progress note Anesthesia: Postop Eval II Evaluation Mental status: Awake and Calm Pain Level: 2 nausea: No Vomiting: No Complications Anesthesia Complication: No 06/02/25 1906 Date Humberto Bell MD Cosigner Signature: Date CC: Signed Normal [facility] Operative Reporton 5 Operative Report [facility] Medical Records Department [address] [place] [address] Operative Report 06/02/25922 MR#: [id number] Acct: [id number] Name: SUSANA MCCLAIN Rep #: [id number] : 1990 35 From: Tracey Ryan MD PCP: Dr. Yasmine Beavers MD Status:REG [facility] Location: [place] [address] Problems Associated Problem List Diagnoses (1) Dysmenorrhea: (2) Abnormal uterine bleeding due to adenomyosis: (3) Stenosis, cervix: (4) Red blood cell antibody positive: Multi Select Codes Urinary/Genital Urinary/Genital CPT Codes: 22662 TVH+BS/O <250gr uterus Operative Report (Standard) Operative Information Date of Procedure: 06/02/25 Pre-Operative Diagnosis: see problem list details Post-Operative Diagnosis: same Surgery/Procedure Performed: total vaginal hysterectomy bilateral salpingectomy distribution sales manager: Yes Policy Issue Clerk: Tonny Medeiros Tasks completed by assistant film editor: Opening closing and Retracting Type of Anesthesia: General RN Documented Start/Stop Times: Operation Date: 06/02/25 07:30 Case Time Into Pre-Op 06/02/25 05:48 Out of Pre-Op 06/02/25 07:26 Anesthesia Start 06/02/25 07:30 Into Room 06/02/25 07:30 Procedure Start 06/02/25 07:57 Procedure Start Time: 07:57 Procedure Stop Time: 09:15 Select all DRAINS/GRAFTS/IMPLAN TS that apply: Drains Drain details: cruz Estimated Blood Loss: 100 Specimen collected: Yes Description of specimen(s) removed: uterus tubes Description of surgery: Patient was taken to the operating room and was placed under general anesthesia was prepped and draped in normal sterile fashion in the dorsal lithotomy position. Preoperative antibiotics and SCDs and Cruz catheter was placed inside the bladder. Weighted speculum was placed in the vagina and the anterior and posterior lip of the cervix was grasped with 2 Christofer clamps and circumferentially injected with dilute vasopressin. A circumferential incision was made with a scalpel and the posterior cul-de-sac was entered into sharply and a longneck speculum was placed. The anterior cul-de-sac was also dissected down and entered into sharply and the uterosacral ligaments were clamped cut and suture ligated bilaterally followed by the cardinal ligaments which were Clamped cut and suture ligated bilaterally with 0 Monocryl. The uterus serially descended and progressive bites were taken bilaterally up to the level of the utero-ovarian ligament bilaterally which was clamped transected and double ligated with 0 Monocryl suture and 0 Vicryl free tie. Bilateral ovaries were well visualized and noted be within normal limits and the bilateral tubes were visualized and clamped with a veena clamp and cut removed suture ligated with 0 monocryl without complication.. The vagina was closed with [id number] 0 Vicryl pop offs including the posterior and anterior peritoneum in the reapproximation. Excellent hemostasis was noted. All instruments removed from the vagina clear urine was noted at the end of the procedure. Surgical Findings: nl uterus and ovaries. Complications Complications: No 06/02/25 0920 Cosigner Signature (if applicable): CC: Dr. Yasmine Beavers MD; Dr. Tracey yRan MD Signed Normal [facility] Specimen Level Von 0 06-02-2025 Surgery Specimen Level V Patient Age/Sex Location Account Attending Physician SUSANA MCCLAIN 35/F [facility] [id number] Dr. Tracey Ryan MD Specimen: [id number] Received: 06/02/25 Status: EMIL Jacob Num: [id number] Spec Type: UTERUS Subm Dr: Dr. Tracey Ryan MD HEADER OPERATION: Hysterectomy, bilateral salpingectomy PRE-OP DIAGNOSIS: Dysmenorrhea, abnormal uterine bleeding due to adenomyosis TISSUE SUBMITTED: A- Uterus, bilateral fallopian tubes MICROSCOPIC DIAGNOSIS A. Uterus, bilateral fallopian tubes, hysterectomy, bilateral salpingectomy Cervix: Benign squamous epithelium and endocervical glandular tissue Endometrium: Proliferative endometrium with benign endometrial polyp Myometrium: Adenomyosis, leiomyoma Bilateral fallopian tubes: Benign fallopian tubes with no pathologic change MICROSCOPIC DESCRIPTION Slides are reviewed. GROSS DESCRIPTION A. Received in formalin labeled with the patient's name and date of . Designated as uterus, bilateral fallopian tubes is a 115.5 g, 7.9 x 4.9 x 4.2 cm uterus with undesignated, detached fallopian tubes. The serosa is palencia-pink with patchy congestion and marked adhesions on the anterior aspect. The attached cervix is palencia-pink to white and measures 3.8 x 3.6; the 1.4 cm os is patent. The specimen is oriented using the posterior peritoneal reflection The specimen is inked as follows: Anterior-greenPoster ior-blackParametrium -orange. Opening reveals a 5.7 x 2.6 cm endometrial canal lined by pink-red somewhat granular and lush endometrium measuring up to 0.3 cm thick. There is slightly irregular folding of the endometrium near the cornu which may represent a polyp (1.2 x 0.5 x 0.2 cm).. The myometrium is palencia-pink and trabeculated and measures up to 2.4 cm thick. There are 2 possible intramural leiomyomas identified, 0.5 cm to 1.0 cm. The palencia-pink bilateral fallopian tubes are fimbriated and measure 4.1 x 0.3 cm and 4.3 x 0.6 cm. Definitive paratubal cyst are not identified. Geology Associate sections are submitted as follows: A1: Anterior cervixA2: Posterior cervixA3: Anterior endomyometriumA4: Posterior endomyometrium with possible intramural leiomyomaA5-A6: Fallopian tubesA7: Posterior endomyometrium with slight irregular folding which may represent polypA8: Largest possible intramural leiomyoma VT 06/02/2025 CPT:75571 Patient Age/Sex Location Account Attending Physician SUSANA MCCLAIN 35/F [facility] [id number] Dr. Tracey Ryan MD Signed (signature on file) Dr. Dorothea Ellis DO 06/04/25 1407 [facility] Comment on above: Performed By: #### L 3100.5400 #### [facility] [address] [place], [address] L3400.0005on 05-22-2025 V ZOSTER IgG Reactive Normal Non Reactive [facility] Comment on above: Order Comment: Order Date: 05/19/25 Order Info: [id number] - RUBEOG Order Info: - MUG Result Comment: Pl ease note reference interval change A Reactive result is considered evidence of immunity to VZV. Reactive indicates that VZV IgG was detected consistent with previous infection and/or vaccination. A Non Reactive result indicates that VZV IgG was not detected suggesting that immunity has not been acquired. Performed By: #### L 3400.0005, L509.4006 #### [facility] [address] [place], [address] Mumps Antibody,IgGon 025 MUMPS Ab, IgG 210.0 AU/mL Normal Immune >10.9 [facility] Comment on above: Order Comment: Order Date: 05/19/25 Order Info: [id number] - RUBEOG Order Info: - MUG Result Comment: Nega tive <9.0 Equivocal 9.0 - 10.9 Positive >10.9 A positive result generally indicates past exposure to Mumps virus or previous vaccination. Performed By: #### L 3400.1750, L3100.3300 #### [facility] [address] [place], [place], [address] Rubeola IgG Abon 05-22-2025 RUBEOLA Ab, IgG > 300.0 High Immune >16.4 [facility] Comment on above: Order Comment: Order Date: 05/19/25 Order Info: [id number] - RUBEOG Order Info: [id number] - MUG Result Comment: Clie nt Requested Flag Negative <13.5 Equivocal 13.5 - 16.4 Positive >16.4 Presence of antibodies to Rubeola is presumptive evidence of immunity except when acute infection is suspected. Performed at: [address] [id number] Correctional Maintenance Technician: Steven Bruner PhD, Phone: [phone] Performed By: #### L 3400.1750, L3100.3300 #### [facility] [address] [place], [address] [id number] 05-20-2025 ANTIBODY ID M Normal [facility] Comment on above: Order Comment: Surge ry Date: 06/02/25 07:30 Operating Room SUSANA JAMESON [id number] [facility] 35/F [birth year] Hysterectomy,Vaginal Poss LAVH,Bilateral Salpingectomy (Bilateral) S.Jam for Laboratory Test PREOPPROTOCOL UNITS ORDERED DUE TO ALLOANTIBODY(S).[id number] RADHA Performed By: #### L 3100.5400 #### [facility] [address] [place], [address] BRCon 05-20-2025 RC Normal [facility] Comment on above: Result Comment: [id number] OP RC READY [id number] OP RC READY Performed By: #### L 3100.5400 #### [facility] [address] [place], [address] L509.4006on 05-20-2025 Rubella IgG REAC Normal Nonreactive [facility] Comment on above: Result Comment: Anti body Result: Interpretation Non-Reactive: Non-Immune Reactive: Immune The following results were obtained with the [employer] Rubella IgG assay. Results from assays of other manufacturers cannot be used interchangeably. Performed By: #### L 3400.0005, L509.4006 #### [facility] [address] [place], [address] MR/PAT.ANEon 05-20-2025 MR/PAT.ANE [facility] Medical Records Department [address] [place] [address] PAT - Anesthesia 05/20/251914 MR#: [id number] Acct: [id number] Name: SUSANA MCCLAIN Rep #: [id number] : 1990 35 From: Humberto Bell MD PCP: Dr. 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 Female Yes 05/19/25 08:48 HX of Motion [...] 11/07/24 16:04 Respiratory Assessment Respiratory Assessment - road conductor: Respiratory Tract Infection Hx - road conductor Hx Respiratory Tract Infection No 05/19/25 08:48 STOP Sleep Apnea STOP Sleep Apnea - road conductor: STOP Sleep Apnea - road conductor Hx Hypertension No 05/19/25 08:48 Hx Sleep [...] Tobacco Use History Tobacco Use History - road conductor: Tobacco Use History - road conductor Tobacco Use Smoking Status Current every day smoker 05/19/25 08:48 Hx Tobacco Use Yes 05/19/25 08:48 Years Smoking Packs Smoked per Day Smoking Cessation Date was within the last 15 years Hx Smoking Cessation Date Hx Smoking Cessation Counseling Hematologic Medial History Hematologic Hx - road 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 Normal [facility] Magnesiumon 05-20-2025 Magnesium [Mass/Vol] 2.3 mg/dL High 1.5-2.2 [facility] Comment on above: Performed By: #### L 3100.5400 #### [facility] [address] [place], [address] Type AND Screen - PAT ONLYon 05-20-2025 Ab SCREEN GEL Positive Normal [facility] Comment on above: Order Comment: Surge ry Date: 06/02/25Reason for Laboratory Test [id number] Performed By: #### L 3100.5400 #### [facility] [address] [place], [address] MR/PAT.ANEon 05-19-2025 MR/PAT.ANE [facility] Medical Records Department [address] [place] [address] PAT - Anesthesia 05/19/25 1839 MR#: [id number] Acct: [id number] Name: SUSANA MCCLAIN Rep #: [id number] : 1990 35 From: Davi Palmer MD PCP: Dr. 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 Female Yes 05/19/25 08:48 HX of Motion [...] 11/07/24 16:04 Respiratory Assessment Respiratory Assessment - road conductor: Respiratory Tract Infection Hx - road conductor Hx Respiratory Tract Infection No 05/19/25 08:48 STOP Sleep Apnea STOP Sleep Apnea - road conductor: STOP Sleep Apnea - road conductor Hx Hypertension No 05/19/25 08:48 Hx Sleep [...] Tobacco Use History Tobacco Use History - road conductor: Tobacco Use History - road conductor Tobacco Use Smoking Status Current every day smoker 05/19/25 08:48 Hx Tobacco Use Yes 05/19/25 08:48 Years Smoking Packs Smoked per Day Smoking Cessation Date was within the last 15 years Hx Smoking Cessation Date Hx Smoking Cessation Counseling Hematologic Medial History Hematologic Hx - 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 Specify any problems Hx of Preganancy in last 3 No 05/19/25 08:48 Months Nurse Filling Out Transfusion AVERYMISTY 05/19/25 08:48 Questions: Date: 05/19/25 05/19/25 08:48 Time: 08:56 05/19/25 08:48 Patient unable to answer at this time (ie. confused, unrespo /Reproducti on History /Reproducti ve History - road conductor: /Reproducti ve Hx- road conductor Hx Now No 05/19/25 08:48 Gestational Age (in weeks): EDC: Hx Hx Para Hx Section SAB No 05/19/25 08:48 [facility] Medical History (Updated 05/19/25 @ 08:54 [...] azithromycin (From (more content not included)... Normal [facility] PROLACTIN 4465on 05-19-2025 PROLACTIN 18.4 ng/mL Normal 4.8-33.4 [facility] Comment on above: Result Comment: Perf ormed at: CB - [facility] [address] [id number] Correctional Maintenance Technician: Steven Bruner PhD, Phone: [phone] Performed By: #### L 1581.9740 #### [facility] [address] [place], [place], [address] Forensic Dna Analyst Office Visit Reporton 05-18-2025 Forensic Dna Analyst Office Visit Report [facility], [address] [place] [address] OFFICE VISIT Date of Service: 05/18/25 MR#: [id number] Acct: [id number] Name: SUSANA MCCLAIN Rep #: [id number] : 1990 Provider: Dr. Tracey willis MD Age/Sex: 35/F Location[place] [facility] Status: Signed Intake Vital Signs 11/07/24 16:04 05/18/25 08:23 Height 5 ft 9 in 5 ft 9 in Weight: 193 lb 6 oz BMI 28.5 BP 144/83 H Intake Visit Reasons: TVH BS possible [facility] College Service Officer Required: No Is patient in pain?: No [...] Endo: De (more content not included)... Normal [facility] ANTINUCLEAR ANTIBODIES DIREC Ton 05-07-2025 MARY,DIRECT Negative Normal Negative [facility] Comment on above: Order Comment: Order Date: 05/05/25Order Info: 0270-1 - MARY Result Comment: Perf ormed at: [address] [id number] Correctional Maintenance Technician: Steven Bruner PhD, Phone: [phone] Performed By: #### L 505.7010, L100.0100, L7000.5300, L500.4050, L101.9900, L3100.5475 ####[facility] [address] [place], [address] Lyme Screen W/Reflex WBon LYME SCREEN Ab Negative Normal Negative [facility] Comment on above: Order Comment: Order Date: [...] to 14 days is recommended. Performed at: [address] [id number] Correctional Maintenance Technician: Steven Bruner PhD, Phone: [phone] Performed By: #### L 505.7010, L100.0100, L7000.5300, L500.4050, L101.9900, L3100.5475 ####[facility] [address] [place], [address] CBC W/Diff, Automatedon 04-19 Absolute Lymph 3.75 X10 3/uL Normal 0.83-4.51 [facility] Comment on above: Order Comment: Order Date: 05/05/25 Order Info: 0184-1 - CBCD Order Info: 42822-2 - SED Performed By: #### L 505.7010, L100.0100, L7000.5300, L500.4050, L101.9900, L3100.5475 #### [facility] [address] [place], [address] Absolute Neut 8.1 X10 3/uL High 2.0-7.7 [facility] Comment on above: Order Comment: Order Date: 05/05/25 Order Info: 0184-1 - CBCD Order Info: 50066-2 - SED Performed By: #### L 505.7010, L100.0100, L7000.5300, L500.4050, L101.9900, L3100.5475 #### [facility] [address] [place], [address] Basophils/100 WBC (Bld) 0.5 % Normal 0-1 [facility] Comment on above: Order Comment: Order Date: 05/05/25 Order Info: 0184- - CBCD Order Info: 01711-9 - SED Performed By: #### L 505.7010, L100.0100, L7000.5300, L500.4050, L101.9900, L3100.5475 #### [facility] [address] [place], [address] Eosinophils/100 WBC (Bld) 1.5 % Normal 0-5 [facility] Comment on above: Order Comment: Order Date: 05/05/25 Order Info: 0184-1 - CBCD Order Info: 35142-6 - SED Performed By: #### L 505.7010, L100.0100, L7000.5300, L500.4050, L101.9900, L3100.5475 #### [facility] [address] [place], [address] Erythrocyte distribution width (RBC) [Ratio] 12.9 % Normal 11.6-14.6 [facility] Comment on above: Order Comment: Order Date: 05/05/25 Order Info: 0184-1 - CBCD Order Info: 36404-9 - SED Performed By: #### L 505.7010, L100.0100, L7000.5300, L500.4050, L101.9900, L3100.5475 #### [facility] [address] [place], [address] Hematocrit (Bld) [Volume fraction] 37.5 % Normal 37-47 [facility] Comment on above: Order Comment: Order Date: 05/05/25 Order Info: 0184- - CBCD Order Info: 68027-0 - SED Performed By: #### L 505.7010, L100.0100, L7000.5300, L500.4050, L101.9900, L3100.5475 #### [facility] [address] [place], [address] Hemoglobin (Bld) [Mass/Vol] 12.8 g/dL Normal 12.0-15.0 [facility] Comment on above: Order Comment: Order Date: 05/05/25 Order Info: 0184- - CBCD Order Info: 31695-7 - SED Performed By: #### L 505.7010, L100.0100, L7000.5300, L500.4050, L101.9900, L3100.5475 #### [facility] [address] [place], [address] IG% 0.200 Normal 0.0-0.9 [facility] Comment on above: Order Comment: Order Date: 05/05/25 Order Info: 0184- - CBCD Order Info: 52149-2 - SED Result Comment: IG% - Immature Granulocytes (promyelocytes, myelocytes and metamyelocytes) > 1% indicates that a LEFT SHIFT is Present. Performed By: #### L 505.7010, L100.0100, L7000.5300, L500.4050, L101.9900, L3100.5475 #### [facility] [address] [place], [address] Lymphocytes/100 WBC (Bld) 28.8 % Normal 19-41 [facility] Comment on above: Order Comment: Order Date: 05/05/25 Order Info: 01802-17 - CBCD Order Info: 48391-4 - SED Performed By: #### L 505.7010, L100.0100, L7000.5300, L500.4050, L101.9900, L3100.5475 #### [facility] [address] [place], [address] MCH (RBC) [Entitic mass] 28.6 pg Normal 27.0-32.0 [facility] Comment on above: Order Comment: Order Date: 05/05/25 Order Info: 183-11 - CBCD Order Info: 38594-8 - SED Performed By: #### L 505.7010, L100.0100, L7000.5300, L500.4050, L101.9900, L3100.5475 #### [facility] [address] [place], [address] MCHC (RBC) [Mass/Vol] 34.1 g/dL Normal 32-36 [facility] Comment on above: Order Comment: Order Date: 05/05/25 Order Info: 183-11 - CBCD Order Info: 14617-8 - SED Performed By: #### L 505.7010, L100.0100, L7000.5300, L500.4050, L101.9900, L3100.5475 #### [facility] [address] [place], [address] MCV (RBC) [Entitic vol] 83.9 fL Normal 81-99 [facility] Comment on above: Order Comment: Order Date: 05/05/25 Order Info: 01802-17 - CBCD Order Info: 21429-4 - SED Performed By: #### L 505.7010, L100.0100, L7000.5300, L500.4050, L101.9900, L3100.5475 #### [facility] [address] [place], [address] Monocytes/100 WBC (Bld) 6.4 % Normal 0-10 [facility] Comment on above: Order Comment: Order Date: 05/05/25 Order Info: 0184- - CBCD Order Info: 89853-3 - SED Performed By: #### L 505.7010, L100.0100, L7000.5300, L500.4050, L101.9900, L3100.5475 #### [facility] [address] [place], [address] Neutrophils/100 WBC (Bld) 62.6 % Normal 47-70 [facility] Comment on above: Order Comment: Order Date: 05/05/25 Order Info: 018- - CBCD Order Info: 81035-9 - SED Performed By: #### L 505.7010, L100.0100, L7000.5300, L500.4050, L101.9900, L3100.5475 #### [facility] [address] [place], [address] Nucleated RBC (Bld) [#/Vol] 0 10*3/uL Normal 0-5 [facility] Comment on above: Order Comment: Order Date: 05/05/25 Order Info: 0184-1 - CBCD Order Info: 22943-8 - SED Performed By: #### L 505.7010, L100.0100, L7000.5300, L500.4050, L101.9900, L3100.5475 #### [facility] [address] [place], [address] Platelet mean volume (Bld) [Entitic vol] 10.4 fL Normal 6.2-12.0 [facility] Comment on above: Order Comment: Order Date: 05/05/25 Order Info: 0184-1 - CBCD Order Info: 84686-8 - SED Performed By: #### L 505.7010, L100.0100, L7000.5300, L500.4050, L101.9900, L3100.5475 #### [facility] [address] [place], [address] Platelets (Bld) [#/Vol] 276 10*3/uL Normal 150-450 [facility] Comment on above: Order Comment: Order Date: 05/05/25 Order Info: 0184-1 - CBCD Order Info: 78393-4 - SED Performed By: #### L 505.7010, L100.0100, L7000.5300, L500.4050, L101.9900, L3100.5475 #### [facility] [address] [place], [address] RBC (Bld) [#/Vol] 4.47 10*6/uL Normal 4.2-5.4 [facility] Comment on above: Order Comment: Order Date: 05/05/25 Order Info: 0184- - CBCD Order Info: 16130-6 - SED Performed By: #### L 505.7010, L100.0100, L7000.5300, L500.4050, L101.9900, L3100.5475 #### [facility] [address] [place], [address] RDW SD 39.7 fl Normal 35.1-43.9 [facility] Comment on above: Order Comment: Order Date: 05/05/25 Order Info: 0184-1 - CBCD Order Info: 49287-0 - SED Performed By: #### L 505.7010, L100.0100, L7000.5300, L500.4050, L101.9900, L3100.5475 #### [facility] [address] [place], [address] WBC (Bld) [#/Vol] 13.0 10*3/uL High 4.4-11.0 [facility] Comment on above: Order Comment: Order Date: 05/05/25 Order Info: 0184- - CBCD Order Info: 43514-1 - SED Performed By: #### L 505.7010, L100.0100, L7000.5300, L500.4050, L101.9900, L3100.5475 #### [facility] [address] [place], [address] Comprehensive Metabolic Prof ilon 05-05-2025 Albumin [Mass/Vol] 4.2 g/dL Normal 3.5-5.0 [facility] Comment on above: Order Comment: Order Date: 05/05/25Order Info: 0786-1 - CMPOrder Info: 73306-5 - RA Performed By: #### L 505.7010, L100.0100, L7000.5300, L500.4050, L101.9900, L3100.5475 ####[facility] [address] [place], [address] Albumin/Globulin [Mass ratio] 1.4 {ratio} Normal 0.9-2.4 [facility] Comment on above: Order Comment: Order Date: 05/05/25Order Info: 0786-1 - CMPOrder Info: 31731-7 - RA Performed By: #### L 505.7010, L100.0100, L7000.5300, L500.4050, L101.9900, L3100.5475 ####[facility] [address] [place], [address] ALK PHOS 51 U/L Normal 35-104 [facility] Comment on above: Order Comment: Order Date: 05/05/25Order Info: 0786-1 - CMPOrder Info: 20927-5 - RA Performed By: #### L 505.7010, L100.0100, L7000.5300, L500.4050, L101.9900, L3100.5475 ####[facility] [address] [place], [address] ALT [Catalytic activity/Vol] 13 U/L Normal <=34 [facility] Comment on above: Order Comment: Order Date: 05/05/25Order Info: 0786-1 - CMPOrder Info: 71653-6 - RA Performed By: #### L 505.7010, L100.0100, L7000.5300, L500.4050, L101.9900, L3100.5475 ####[facility] [address] [place], [address] AST [Catalytic activity/Vol] 20 U/L Normal <=31 [facility] Comment on above: Order Comment: Order Date: 05/05/25Order Info: 0786-1 - CMPOrder Info: 84032-0 - RA Performed By: #### L 505.7010, L100.0100, L7000.5300, L500.4050, L101.9900, L3100.5475 ####[facility] [address] [place], [address] Bilirubin [Mass/Vol] 0.28 mg/dL Normal 0.00-1.30 [facility] Comment on above: Order Comment: Order Date: 05/05/25Order Info: 0786-1 - CMPOrder Info: 42756-8 - RA Performed By: #### L 505.7010, L100.0100, L7000.5300, L500.4050, L101.9900, L3100.5475 ####[facility] [address] [place], [address] BUN/CRE 8.5 RATIO Low 10-20 [facility] Comment on above: Order Comment: Order Date: 05/05/25Order Info: 0786-1 - CMPOrder Info: 96456-9 - RA Performed By: #### L 505.7010, L100.0100, L7000.5300, L500.4050, L101.9900, L3100.5475 ####[facility] [address] [place], [address] Calcium [Mass/Vol] 8.9 mg/dL Normal 7.6-11.0 [facility] Comment on above: Order Comment: Order Date: 05/05/25Order Info: 0786-1 - CMPOrder Info: [id number] - RA Performed By: #### L 505.7010, L100.0100, L7000.5300, L500.4050, L101.9900, L3100.5475 ####[facility] [address] [place], [address] Chloride [Moles/Vol] 103 mmol/L Normal 98-108 [facility] Comment on above: Order Comment: Order Date: 05/05/25Order Info: 0786-1 - CMPOrder Info: [id number] - RA Performed By: #### L 505.7010, L100.0100, L7000.5300, L500.4050, L101.9900, L3100.5475 ####[facility] [address] [place], [address] CO2 [Moles/Vol] 23.0 mmol/L Normal 21.0-32.0 [facility] Comment on above: Order Comment: Order Date: 05/05/25Order Info: 0786-1 - CMPOrder Info: 96462-6 - RA Performed By: #### L 505.7010, L100.0100, L7000.5300, L500.4050, L101.9900, L3100.5475 ####[facility] [address] [place], [address] Creatinine [Mass/Vol] 0.86 mg/dL Normal 0.70-1.20 [facility] Comment on above: Order Comment: Order Date: 05/05/25Order Info: 0786-1 - CMPOrder Info: 88765-0 - RA Performed By: #### L 505.7010, L100.0100, L7000.5300, L500.4050, L101.9900, L3100.5475 ####[facility] [address] [place], [address] GAP 11 Normal 5-15 [facility] Comment on above: Order Comment: Order Date: 05/05/25Order Info: 0786-1 - CMPOrder Info: [id number] - RA Performed By: #### L 505.7010, L100.0100, L7000.5300, L500.4050, L101.9900, L3100.5475 ####[facility] [address] [place], [address] GFR/1.73 sq M.predicted among non-blacks MDRD (S/P/Bld) [Vol rate/Area] 91 mL/min/{1.73_m2} Normal >60 [facility] Comment on above: Order Comment: Order Date: 05/05/25Order Info: 0786-1 - CMPOrder Info: 11248-0 - RA Result Comment: mL/m in/1.73m2 CKD-EPI Creatinine Equation (2020) Performed By: #### L 505.7010, L100.0100, L7000.5300, L500.4050, L101.9900, L3100.5475 ####[facility] [address] [place], [address] Globulin (S) [Mass/Vol] 3.0 g/dL Normal 2.2-4.2 [facility] Comment on above: Order Comment: Order Date: 05/05/25Order Info: 0786-1 - CMPOrder Info: [id number] - RA Performed By: #### L 505.7010, L100.0100, L7000.5300, L500.4050, L101.9900, L3100.5475 ####[facility] [address] [place], [address] Glucose [Mass/Vol] 90 mg/dL Normal 70-99 [facility] Comment on above: Order Comment: Order Date: 05/05/25Order Info: 0786-1 - CMPOrder Info: 82064-6 - RA Performed By: #### L 505.7010, L100.0100, L7000.5300, L500.4050, L101.9900, L3100.5475 ####[facility] [address] [place], [address] Potassium [Moles/Vol] 3.6 mmol/L Normal 3.3-5.1 [facility] Comment on above: Order Comment: Order Date: 05/05/25Order Info: 0786-1 - CMPOrder Info: 01052-2 - RA Performed By: #### L 505.7010, L100.0100, L7000.5300, L500.4050, L101.9900, L3100.5475 ####[facility] [address] [place], [address] Sodium [Moles/Vol] 138 mmol/L Normal 133-145 [facility] Comment on above: Order Comment: Order Date: 05/05/25Order Info: 0786-1 - CMPOrder Info: [id number] - RA Performed By: #### L 505.7010, L100.0100, L7000.5300, L500.4050, L101.9900, L3100.5475 ####[facility] [address] [place], [address] T PROT 7.2 g/dL Normal 5.9-8.4 [facility] Comment on above: Order Comment: Order Date: 05/05/25Order Info: 0786-1 - CMPOrder Info: 55973-1 - RA Performed By: #### L 505.7010, L100.0100, L7000.5300, L500.4050, L101.9900, L3100.5475 ####[facility] [address] [place], [address] Urea nitrogen [Mass/Vol] 7 mg/dL Normal 4-19 [facility] Comment on above: Order Comment: Order Date: 05/05/25Order Info: 0786-1 - CMPOrder Info: [id number] - RA Performed By: #### L 505.7010, L100.0100, L7000.5300, L500.4050, L101.9900, L3100.5475 ####[facility] [address] [place], [address] Erythrocyte Sed Rateon 05-05 SED RATE 4 mm/hr Normal 0-30 [facility] Comment on above: Order Comment: Order Date: 05/05/25Order Info: 0184-1 - CBCDOrder Info: 84924-2 - SED Performed By: #### L 505.7010, L100.0100, L7000.5300, L500.4050, L101.9900, L3100.5475 ####[facility] [address] [place], [address] Hips B/L min 2 views w/ Pelv rob 05-05-2025 Hips B/L min 2 views w/ Pelvis [facility] [address] [place] [address] Hips B/L min 2 views w/ Pelvis MR#: [id number] Acct: [id number] Name: SUSANA MCCLAIN Rep #: [id number] : 1990 F 35 From: Juan Manuel marrero MD PCP: Dr. Yasmine Beavers MD Status: REG CLI Study: Hips B/L min 2 views w/ Pelvis Date of Exam: 0 05/05/25 Exam# [id number] Ordering Dr: Yasmine Beavers MD PROCEDURE: HIPS [...] No evidence for acute abnormality. Reading Location: [place] [address] CC: Dr. Yasmine Beavers MD Residential Counselor: Signed Normal [facility] Knee 3 Viewson 05-05-2025 Knee 3 Views [facility] [address] [place] [address] Knee 3 Views MR#: [id number] Acct: [id number] Name: SUSANA MCCLAIN Rep #: [id number] : 1990 F 35 From: Juan Manuel marrero MD PCP: Dr. Yasmine Beavers MD Status: REG CLI Study: Knee 3 Views Date of Exam: 05/05/25 Exam# [id number] Ordering Dr: Yasmine Beavers MD PROCEDURE: KNEE 3 VIEWS 05/05/2025 REASON FOR EXAM: KNEE PAIN TECHNIQUE: KNEE 3 VIEWS COMPARISON: MRI on 11/27/2023. FINDINGS: Mild tricompartmental changes of degenerative joint disease. Prior reconstruction of the anterior cruciate ligament. No fracture or dislocation is seen. RAD/Knee 3 Views IMPRESSION: No evidence for acute abnormality. Reading Location: [place] [address] CC: Dr. Yasmine Beavers MD Residential Counselor: Signed Normal [facility] Knee 3 Views [facility] [address] [place], [place] [address] Knee 3 Views MR#: [id number] Acct: [id number] Name: SUSANA MCCLAINNE Rep #: [id number] : 1990 F 35 From: Juan Manuel marrero MD PCP: Dr. Yasmine Beavers MD Status: REG CLI Study: Knee 3 Views Date of Exam: 05/05/25 Exam# [id number] Ordering Dr: Yasmine Beavers MD PROCEDURE: KNEE 3 VIEWS 05/05/2025 REASON FOR EXAM: KNEE PAIN TECHNIQUE: KNEE 3 VIEWS COMPARISON: None. FINDINGS: Normal medial femorotibial compartment. Normal lateral femorotibial compartment. Normal patellofemoral articulation. Normal visualized distal femur. Normal visualized proximal tibia and fibula. Normal proximal tibiofibular articulation. RAD/Knee 3 Views IMPRESSION: No evidence for acute abnormality. Reading Location: [place] [address] CC: Dr. Yasmine Beavers MD Residential Counselor: Signed Normal [facility] Rheumatoid Factoron 05-05-20 25 RHEUMATOID FAC < 10.0 Normal <15 [facility] Comment on above: Order Comment: Order Date: 05/05/25Order Info: 0786-1 - CMPOrder Info: [id number] - RA Performed By: #### L 505.7010, L100.0100, L7000.5300, L500.4050, L101.9900, L3100.5475 ####[facility] [address] [facility] [place], [address] Shoulder min 2 Viewson 05-05 Shoulder min 2 Views [facility] [address] [place] [address] Shoulder min 2 Views MR#: [id number] Acct: [id number] Name: SUSANA MCCLAIN Rep #: [id number] : 1990 F 35 From: Juan Manuel marrero MD PCP: Dr. Yasmine Beavers MD Status: REG CLI Study: Shoulder min 2 Views Date of Exam: 05/05/25 Exam# [id number] Ordering Dr: Yasmine Beavers MD PROCEDURE: SHOULDER [...] No evidence for acute abnormality. Reading Location: [place] [address] CC: Dr. Yasmine Beavers MD Residential Counselor: Signed Normal [facility] Shoulder min 2 Views [facility] Imaging Services [address] [place] [address] Shoulder min 2 Views MR#: [id number] Acct: [id number] Name: SUSANA MCCLAIN Rep #: [id number] : 1990 F 35 From: Juan Manuel marrero MD PCP: Dr. Yasmine Beavers MD Status: REG CLI Study: Shoulder min 2 Views Date of Exam: 05/05/25 Exam# [id number] Ordering Dr: Yasmine Beavers MD PROCEDURE: SHOULDER [...] No evidence for acute abnormality. Reading Location: [place] [address] CC: Dr. Yasmine Beavers MD Residential Counselor: Signed Normal [facility] Venous Duplex US, Unilateral on 04-24-2025 Venous Duplex US, Unilateral [facility] [address] [place] [address] Venous Duplex US, Unilateral 04/24/25 1404 MR#: [id number] Acct: [id number] Name: SUSANA MCCLAIN Rep #: [id number] : 1990 35 From: Rohit Conteh MD [...] Date Dictated: 04/24/25 1404 Date Transcribed: 04/27/25756 Residential Counselor: Signed Normal [facility] Stress Reporton 12-25-2024 Stress Report [facility] [place] [address] MR#: [id number] Acct: [id number] Name: SUSANA MCCLAIN Rep #: [id number] : 1990 34 From: Rambo Tompkins MD [...] MD Date Dictated: 12/25/241717 Date Transcribed: 12/25/241717 Residential Counselor: [place] Signed Normal [facility] Lumbar Spine 2 or 3 Viewson 11-28-2024 Lumbar Spine 2 or 3 Views [facility] Imaging Services [address] [place] [address] Lumbar Spine 2 or 3 Views MR#: [id number] Acct: [id number] Name: SUSANA MCCLAIN Rep #: [id number] : 1990 F 34 From: Flavio peraza MD PCP: Dr. Yasmine Beavers MD Status: REG CLI Study: Lumbar Spine 2 or 3 Views Date of Exam: Exam# [id number] Ordering Dr: Yasmine Beavers MD [id number] STUDY: X-RAY - LUMBAR SPINE REASON FOR [...] EST , CC: Dr. Yasmine Beavers MD Residential Counselor: Signed Normal [facility] Forensic Dna Analyst Office Visit Reporton 11-07-2024 Forensic Dna Analyst Office Visit Report [facility] [address], [address] [place] [address] OFFICE VISIT Date of Service: 11/07/24 MR#: [id number] Acct: [id number] Name: SUSANA MCCLAIN Rep #: [id number] : 1990 Provider: Dr. 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 Normal [facility] CBC W/Diff, Automatedon 12-0 Absolute Neut Normal 2.0-7.7 [facility] Comment on above: Order Comment: Order Date: 10/21/24Order Info: 0184-1 - CBCD Result Comment: SALUD DAVIDSON DID Performed By: #### L 500.4050, L100.0100, L501.5200, L506.0400, L501.9520 ####[facility] [address] [place], [address] HCT Normal 37-47 [facility] Comment on above: Order Comment: Order Date: 10/21/24Order Info: 0184-1 - CBCD Result Comment: ALRE STUART DID Performed By: #### L 500.4050, L100.0100, L501.5200, L506.0400, L501.9520 ####[facility] [address] [place], [address] HGB Normal 12.0-15.0 [facility] Comment on above: Order Comment: Order Date: 10/21/24Order Info: 0184- - CBCD Result Comment: ALRE STUART DID Performed By: #### L 500.4050, L100.0100, L501.5200, L506.0400, L501.9520 ####[facility] [address] [place], [address] MCH Normal 27.0-32.0 [facility] Comment on above: Order Comment: Order Date: 10/21/24Order Info: 0184- - CBCD Result Comment: ALRE STUART DID Performed By: #### L 500.4050, L100.0100, L501.5200, L506.0400, L501.9520 ####[facility] [address] [place], [address] MCHC Normal 32-36 [facility] Comment on above: Order Comment: Order Date: 10/21/24Order Info: 0184-1 - CBCD Result Comment: ALRE STUART DID Performed By: #### L 500.4050, L100.0100, L501.5200, L506.0400, L501.9520 ####[facility] [address] [place], [address] MCV Normal 81-99 [facility] Comment on above: Order Comment: Order Date: 10/21/24Order Info: 0184-1 - CBCD Result Comment: ALRE STUART DID Performed By: #### L 500.4050, L100.0100, L501.5200, L506.0400, L501.9520 ####[facility] [address] [place], [address] NEUT% Normal 47-70 [facility] Comment on above: Order Comment: Order Date: 10/21/24Order Info: 0184-1 - CBCD Result Comment: ALRE STUART DID Performed By: #### L 500.4050, L100.0100, L501.5200, L506.0400, L501.9520 ####[facility] [address] [place], [address] PLT Normal 150-450 [facility] Comment on above: Order Comment: Order Date: 10/21/24Order Info: 018- - CBCD Result Comment: ALRE STUART DID Performed By: #### L 500.4050, L100.0100, L501.5200, L506.0400, L501.9520 ####[facility] [address] [place], [address] RBC Normal 4.2-5.4 [facility] Comment on above: Order Comment: Order Date: 10/21/24Order Info: 018- - CBCD Result Comment: ALRE STUART DID Performed By: #### L 500.4050, L100.0100, L501.5200, L506.0400, L501.9520 ####[facility] [address] [place], [address] RDW CV Normal 11.6-14.6 [facility] Comment on above: Order Comment: Order Date: 10/21/24Order Info: 0184-1 - CBCD Result Comment: ALRE STUART DID Performed By: #### L 500.4050, L100.0100, L501.5200, L506.0400, L501.9520 ####[facility] [address] [place], [address] RDW SD Normal 35.1-43.9 [facility] Comment on above: Order Comment: Order Date: 10/21/24Order Info: 0184-1 - CBCD Result Comment: ALRE STUART DID Performed By: #### L 500.4050, L100.0100, L501.5200, L506.0400, L501.9520 ####[facility] [address] [place], [address] WBC Normal 4.4-11.0 [facility] Comment on above: Order Comment: Order Date: 10/21/24Order Info: 0184-1 - CBCD Result Comment: ALRE STUART DID Performed By: #### L 500.4050, L100.0100, L501.5200, L506.0400, L501.9520 ####[facility] [address] [place], [address] Comprehensive Metabolic Prof ilon 10-21-2024 Albumin [Mass/Vol] 3.8 g/dL Normal 3.2-5.0 [facility] Comment on above: Order Comment: Order Date: 10/21/24Order Info: 0786-1 - CMPOrder Info: 64792-2 - MGOrder Info: 3015-3 - TSHOrder Info: 302-7 - T4F Performed By: #### L 500.4050, L100.0100, L501.5200, L506.0400, L501.9520 ####[facility] [address] [place], [address] Albumin/Globulin [Mass ratio] 1.0 {ratio} Normal 0.9-2.4 [facility] Comment on above: Order Comment: Order Date: 10/21/24Order Info: 0786-1 - CMPOrder Info: 16589-5 - MGOrder Info: 3015-3 - TSHOrder Info: 3024-7 - T4F Performed By: #### L 500.4050, L100.0100, L501.5200, L506.0400, L501.9520 ####[facility] [address] [place], [address] ALK P 45 U/L Normal 45-117 [facility] Comment on above: Order Comment: Order Date: 10/21/24Order Info: 0786-1 - CMPOrder Info: 92625-0 - MGOrder Info: 3016-3 - TSHOrder Info: 3024-7 - T4F Performed By: #### L 500.4050, L100.0100, L501.5200, L506.0400, L501.9520 ####[facility] [address] [place], [address] ALT [Catalytic activity/Vol] 23 U/L Normal 13-56 [facility] Comment on above: Order Comment: Order Date: 10/21/24Order Info: 0786-1 - CMPOrder Info: 52092-0 - MGOrder Info: 3016-3 - TSHOrder Info: 3024-7 - T4F Performed By: #### L 500.4050, L100.0100, L501.5200, L506.0400, L501.9520 ####[facility] [address] [place], [address] AST [Catalytic activity/Vol] 15 U/L Normal 15-37 [facility] Comment on above: Order Comment: Order Date: 10/21/24Order Info: 0786-1 - CMPOrder Info: 35070-9 - MGOrder Info: 3016-3 - TSHOrder Info: 3024-7 - T4F Performed By: #### L 500.4050, L100.0100, L501.5200, L506.0400, L501.9520 ####[facility] [address] [place], [address] Bilirubin [Mass/Vol] 0.30 mg/dL Normal 0.20-1.00 [facility] Comment on above: Order Comment: Order Date: 10/21/24Order Info: 0786-1 - CMPOrder Info: 70964-5 - MGOrder Info: 3016-3 - TSHOrder Info: 3024-7 - T4F Result Comment: For patients on eltrombopag therapy, use of Dimension [place] TBIL is not recommended. Performed By: #### L 500.4050, L100.0100, L501.5200, L506.0400, L501.9520 ####[facility] [address] [place], [address] BUN/CRE 6.9 RATIO Low 10-20 [facility] Comment on above: Order Comment: Order Date: 10/21/24Order Info: 0786-1 - CMPOrder Info: 18537-6 - MGOrder Info: 3016-3 - TSHOrder Info: 3024-7 - T4F Performed By: #### L 500.4050, L100.0100, L501.5200, L506.0400, L501.9520 ####[facility] [address] [place], [address] CA,Total 8.6 mg/dL Normal 8.5-10.1 [facility] Comment on above: Order Comment: Order Date: 10/21/24Order Info: 0786-1 - CMPOrder Info: 55399-0 - MGOrder Info: 3016-3 - TSHOrder Info: 3024-7 - T4F Performed By: #### L 500.4050, L100.0100, L501.5200, L506.0400, L501.9520 ####[facility] [address] [place], [address] Chloride [Moles/Vol] 106 mmol/L Normal 98-107 [facility] Comment on above: Order Comment: Order Date: 10/21/24Order Info: 0786-1 - CMPOrder Info: 78485-6 - MGOrder Info: 3016-3 - TSHOrder Info: 3024-7 - T4F Performed By: #### L 500.4050, L100.0100, L501.5200, L506.0400, L501.9520 ####[facility] [address] [place], [address] CO2 [Moles/Vol] 23.0 mmol/L Normal 21.0-32.0 [facility] Comment on above: Order Comment: Order Date: 10/21/24Order Info: 86-1 - CMPOrder Info: 60270-6 - MGOrder Info: 3016-3 - TSHOrder Info: 3024-7 - T4F Performed By: #### L 500.4050, L100.0100, L501.5200, L506.0400, L501.9520 ####[facility] [address] [place], [address] Creatinine [Mass/Vol] 0.88 mg/dL Normal 0.55-1.02 [facility] Comment on above: Order Comment: Order Date: 10/21/24Order Info: 785-1 - CMPOrder Info: 38375-0 - MGOrder Info: 6-3 - TSHOrder Info: 3024-7 - T4F Result Comment: The validity of the calculated GFR GFRAA in patients over 70 years has not been determined. Clinical correlation is essential. Performed By: #### L 500.4050, L100.0100, L501.5200, L506.0400, L501.9520 ####[facility] [address] [place], [address] EST GFR - AA 96 mL/min Normal >60 [facility] Comment on above: Order Comment: Order Date: 10/21/24Order Info: 785-1 - CMPOrder Info: 43686-9 - MGOrder Info: 3016-3 - TSHOrder Info: 3024-7 - T4F Result Comment: Afri can Mal[place]ian GFR Calc Performed By: #### L 500.4050, L100.0100, L501.5200, L506.0400, L501.9520 ####[facility] [address] [place], [address] GAP 8 Normal 5-15 [facility] Comment on above: Order Comment: Order Date: 10/21/24Order Info: 0786-1 - CMPOrder Info: 60210-6 - MGOrder Info: 3016-3 - TSHOrder Info: 3024-7 - T4F Performed By: #### L 500.4050, L100.0100, L501.5200, L506.0400, L501.9520 ####[facility] [address] [place], [address] GFR/1.73 sq M.predicted among non-blacks MDRD (S/P/Bld) [Vol rate/Area] 79 mL/min/{1.73_m2} Normal >60 [facility] Comment on above: Order Comment: Order Date: 10/21/24Order Info: 07- - CMPOrder Info: 09134-2 - MGOrder Info: 3016-3 - TSHOrder Info: 3024-7 - T4F Result Comment: Non- GFR Calc Performed By: #### L 500.4050, L100.0100, L501.5200, L506.0400, L501.9520 ####[facility] [address] [place], [address] Globulin (S) [Mass/Vol] 3.8 g/dL Normal 2.2-4.2 [facility] Comment on above: Order Comment: Order Date: 10/21/24Order Info: 0786-1 - CMPOrder Info: 36121-9 - MGOrder Info: 3016-3 - TSHOrder Info: 3024-7 - T4F Performed By: #### L 500.4050, L100.0100, L501.5200, L506.0400, L501.9520 ####[facility] [address] [place], [address] Glucose [Mass/Vol] 111 mg/dL High 74-106 [facility] Comment on above: Order Comment: Order Date: 10/21/24Order Info: 0786-1 - CMPOrder Info: 21972-9 - MGOrder Info: 6-3 - TSHOrder Info: 3024-7 - T4F Result Comment: Fast ing Glucose result from 100 to 125 mg/dL suggests IMPAIRED HOMEOSTASIS per A.D.A. criteria. Performed By: #### L 500.4050, L100.0100, L501.5200, L506.0400, L501.9520 ####[facility] [address] [place], [address] Potassium [Moles/Vol] 3.6 mmol/L Normal 3.5-5.1 [facility] Comment on above: Order Comment: Order Date: 10/21/24Order Info: 785-1 - CMPOrder Info: 30024-8 - MGOrder Info: 3015-3 - TSHOrder Info: 3024-7 - T4F Performed By: #### L 500.4050, L100.0100, L501.5200, L506.0400, L501.9520 ####[facility] [address] [place], [address] Sodium [Moles/Vol] 137 mmol/L Normal 136-145 [facility] Comment on above: Order Comment: Order Date: 10/21/24Order Info: 07-1 - CMPOrder Info: 02857-1 - MGOrder Info: 3016-3 - TSHOrder Info: 3024-7 - T4F Performed By: #### L 500.4050, L100.0100, L501.5200, L506.0400, L501.9520 ####[facility] [address] [place], [address] T PROT 7.6 g/dL Normal 6.4-8.2 [facility] Comment on above: Order Comment: Order Date: 10/21/24Order Info: 0786-1 - CMPOrder Info: 19930-4 - MGOrder Info: 3016-3 - TSHOrder Info: 3024-7 - T4F Performed By: #### L 500.4050, L100.0100, L501.5200, L506.0400, L501.9520 ####[facility] [address] [place], [address] Urea nitrogen [Mass/Vol] 6 mg/dL Low 7-18 [facility] Comment on above: Order Comment: Order Date: 10/21/24Order Info: 0786-1 - CMPOrder Info: 84003-1 - MGOrder Info: 3016-3 - TSHOrder Info: 3024-7 - T4F Performed By: #### L 500.4050, L100.0100, L501.5200, L506.0400, L501.9520 ####[facility] [address] [place], [address] Magnesiumon 10-21-2024 Magnesium [Mass/Vol] 2.3 mg/dL Normal 1.6-2.6 [facility] Comment on above: Order Comment: Order Date: 10/21/24Order Info: 0786-1 - CMPOrder Info: 15708-4 - MGOrder Info: 6-3 - TSHOrder Info: 3024-7 - T4F Performed By: #### L 500.4050, L100.0100, L501.5200, L506.0400, L501.9520 ####[facility] [address] [place], [address] T4 Free Directon 10-21-2024 T4 FREE DIRECT 0.98 ng/dL Normal 0.76-1.46 [facility] Comment on above: Order Comment: Order Date: 10/21/24Order Info: 0786-1 - CMPOrder Info: 95734-0 - MGOrder Info: 3016-3 - TSHOrder Info: 3024-7 - T4F Performed By: #### L 500.4050, L100.0100, L501.5200, L506.0400, L501.9520 ####[facility] [address] [place], [address] Thyroid Stim Hormone (TSH)on 10-21-2024 TSH 1.610 uIU/mL Normal 0.358-3.740 [facility] Comment on above: Order Comment: Order Date: 10/21/24Order Info: 0786-1 - CMPOrder Info: 15996-5 - MGOrder Info: 3016-3 - TSHOrder Info: 3024-7 - T4F Performed By: #### L 500.4050, L100.0100, L501.5200, L506.0400, L501.9520 ####[facility] [address] [place], [address] Forensic Dna Analyst Office Visit Reporton 10-01-2024 Forensic Dna Analyst Office Visit Report [facility] [address], [address] [place] [address] OFFICE VISIT Date of Service: 10/01/24 MR#: [id number] Acct: [id number] Name: SUSANA MCCLAIN Rep #: [id number] : 1990 Provider: KODAK paez Age/Sex: 34/F Location[place] [facility] [place]: Signed Intake Vital Signs 09/16/24 13:49 10/01/24 15:21 Height 5 ft 9 in 5 ft 9 in Weight: 182 lb 187 lb BMI 26.9 27.6 BP 132/76 H 124/72 H Intake Visit Reasons: IUD Chief Complaint: IUD insertion College Service Officer Required: No Is patient in pain?: No [...] Weight [facility] FOB Unknown Grace Unknown Alycia Unknown [...] plan IUD, (more content not included)... Normal [facility] Forensic Dna Analyst Office Visit Reporton 09-16-2024 Forensic Dna Analyst Office Visit Report [facility] [address], [address] [place] [address] OFFICE VISIT Date of Service: 09/16/24 MR#: [id number] Acct: [id number] Name: SUSANA MCCLAIN Rep #: [id number] : 1990 Provider: Dr. Tracey willis MD Age/Sex: 34/F Location: [facility] [place] Status: Signed Intake Vital Signs 05/23/24 17:54 09/16/24 13:49 Height 5 ft 9 in 5 ft 9 in Weight: 182 lb BMI 26.9 BP 132/76 H Intake Visit Reasons: UTERINE FIBROID ([place]) College Service Officer Required: No Allergies azithromycin (From Zithromax) Allergy [...] no rashes (more content not included)... Normal [facility] Transvaginal Non-on 08-22-2024 Transvaginal Non- [facility] Imaging Services [address] [place] [address] Transvaginal Non- MR#: [id number] Acct: [id number] Name: SUSANA MCCLAIN Rep #: [id number] : 1990 F 34 From: Jonathan Power DO PCP: Dr. Yasmine Beavers MD Status: [facility] Study: Transvaginal Non- Date of Exam: Exam# [id number] Ordering Dr: Zoe Duran FRONT MAKER LOCKSTITCH FRONT MAKER LOCKSTITCH-C [id number] INDICATION: Excessive and frequent menstruation with regular [...] 18:39 EDT Reading Location ID and State: [facility] / [place] Tel [phone], Service support , CC: KODAK Duran; Dr. Yasmine Beavers MD Residential Counselor: Signed Normal [facility] CBC + DIFFon 04-23-2024 Baso # 0.02 x10EE3/UL Normal 0.00 - 0.10 [facility] Comment on above: Performed By: #### 2 11095 #### [place] [address] Basophils/100 WBC (Bld) 0.2 % Normal 0.0 - 2.0 [facility] Comment on above: Performed By: #### 2 58419 #### [place] [address] CBC + DIFF Normal [facility] Comment on above: Result Comment: CBC- COMPLETE BLOOD COUNT Performed By: #### 2 38330 #### [facility],[address] [place] [address] EO # 0.21 x10EE3/UL Normal 0.00 - 0.50 [facility] Comment on above: Performed By: #### 2 12490 #### [facility],[address] [place] [address] Eosinophils/100 WBC (Bld) 2.0 % Normal 0.0 - 7.0 [facility] Comment on above: Performed By: #### 2 53598 #### [facility],[address] [place] [address] Erythrocyte distribution width (RBC) [Ratio] 13.8 % Normal 12.0 - 15.6 [facility] Comment on above: Performed By: #### 2 07905 #### [facility],[address] [place] [address] Hematocrit (Bld) [Volume fraction] 39.7 % Normal 34.0 - 46.0 [facility] Comment on above: Performed By: #### 2 97077 #### [facility],[address] [place] [address] Hemoglobin (Bld) [Mass/Vol] 13.4 g/dL Normal 12.0 - 16.0 [facility] Comment on above: Performed By: #### 2 35209 #### [facility],[address] [place] [address] Lymph # 1.83 x10EE3/UL Normal 0.80 - 2.80 [facility] Comment on above: Performed By: #### 2 63477 #### [facility],[address] [place] [address] Lymphocytes/100 WBC (Bld) 16.9 % Low 20.0 - 45.0 [facility] Comment on above: Performed By: #### 2 90623 #### [facility],[address] [place] [address] MANUAL DIFF N/A Normal [facility] Comment on above: Performed By: #### 2 17465 #### [facility],[address] [place] [address] MCH (RBC) [Entitic mass] 29 pg Normal 27 - 33 [facility] Comment on above: Performed By: #### 2 91703 #### [facility],[address] [place] [address] MCHC 34 X10 3 Normal 32 - 36 [facility] Comment on above: Performed By: #### 2 11961 #### [facility],[address] [place] [address] MCV (RBC) [Entitic vol] 87 fL Normal 80 - 99 [facility] Comment on above: Performed By: #### 2 24024 #### [facility],[address] [place] [address] Prairie # 0.69 x10EE3/UL Normal 0.20 - 1.00 [facility] Comment on above: Performed By: #### 2 87937 #### [facility],[address] [place] [address] MONOS % 6.4 % Normal 0.0 - 10.0 [facility] Comment on above: Performed By: #### 2 27527 #### [facility],[address] [place] [address] Morphology Juarez (Bld) [Interp] N/A Normal [facility] Comment on above: Performed By: #### 2 47846 #### [facility],[address] [place] [address] Neut # 8.04 x10EE3/UL High 1.50 - 7.10 [facility] Comment on above: Performed By: #### 2 02241 #### [facility],[address] [place] [address] Neutrophils/100 WBC (Bld) 74.6 % Normal 46.0 - 76.0 [facility] Comment on above: Performed By: #### 2 53700 #### [facility],[address] [place] [address] PLATELET 260 x10EE3/UL Normal 150 - 450 [facility] Comment on above: Performed By: #### 2 47850 #### [facility],[address] [place] [address] Platelet mean volume (Bld) [Entitic vol] 7.8 fL Normal 6.6 - 10.5 [facility] Comment on above: Result Comment: AUTO MATED DIFFERENTIAL Performed By: #### 2 81626 #### [facility],[address] [place] [address] 10053 RBC 4.59 x 10EE6/UL Normal 4.10 - 5.30 [facility] Comment on above: Performed By: #### 2 48506 #### [facility],[address] [place] [address] WBC 10.8 x 10EE3/UL Normal 4.5 - 10.8 [facility] Comment on above: Performed By: #### 2 78578 #### [facility],[address] [place] [address] CHEST 1 VIEWon 04-23-2024 CHEST 1 VIEW [place] [address] Patient: SUSANA MCCLAIN Phone#: : 1990 Age: 34 Gender: F Pt. Type: ER Account: [id number] Location: [facility] Ordering: DR. DIANE MANRIQUEZ Exam Date: 04/23/2024/11:04 Family Phys: Charge Code: [id number] Physician: [place] Order #: [id number] Dose#: PROCEDURE: X-RAY CHEST 1 VIEW COMPARISON: [...] Miles MD on 04/23/2024 at 11:22 Normal [facility] CMP with eGFRon 04-23-2024 AGE 34 years Normal [facility] Comment on above: Performed By: #### 2 87880 #### [facility],[address] [place] [address] Albumin [Mass/Vol] 3.7 g/dL Normal 3.4 - 5.0 [facility] Comment on above: Performed By: #### 2 55336 #### [facility],[address] [place] [address] Albumin/Globulin [Mass ratio] 1.1 {ratio} Normal 0.9 - 1.6 [facility] Comment on above: Performed By: #### 2 66127 #### [facility],[address] [place] [address] ALK PHOS 47 U/L Normal 46 - 116 [facility] Comment on above: Performed By: #### 2 03341 #### [facility],[address] [place] [address]692 ALT [Catalytic activity/Vol] 17 U/L Normal 16 - 63 [facility] Comment on above: Performed By: #### 2 11359 #### [facility],[address] [place] [address] Anion gap [Moles/Vol] 11 mmol/L Normal 10 - 20 [facility] Comment on above: Performed By: #### 2 62035 #### [facility],[address] [place] [address] AST [Catalytic activity/Vol] 15 U/L Normal 13 - 39 [facility] Comment on above: Performed By: #### 2 02860 #### [facility],[address] [place] [address]803 B/C RATIO 7 ratio Normal 0 - 30 [facility] Comment on above: Performed By: #### 2 14728 #### [facility],[address] [place] [address] Bilirubin [Mass/Vol] 0.4 mg/dL Normal 0.2 - 1.0 [facility] Comment on above: Performed By: #### 2 60481 #### [facility],[address] [place] [address] 24321 Calcium [Mass/Vol] 8.9 mg/dL Normal 8.5 - 10.1 [facility] Comment on above: Performed By: #### 2 32994 #### [facility],[address] [place] [address] 42675 Chloride [Moles/Vol] 103 mmol/L Normal 98 - 107 [facility] Comment on above: Performed By: #### 2 15153 #### [facility],[address] [place] [address] 97816 CMP with eGFR Normal [facility] Comment on above: Result Comment: COMP REHENSIVE METABOLIC PANEL Performed By: #### 2 46975 #### [facility],[address] [place] [address] 45379 CO2 [Moles/Vol] 25.7 mmol/L Normal 21.0 - 32.0 [facility] Comment on above: Performed By: #### 2 13848 #### [facility],[address] [place] [address] 87707 Creatinine [Mass/Vol] 0.89 mg/dL Normal 0.55 - 1.02 [facility] Comment on above: Performed By: #### 2 67543 #### [facility],[address] [place] [address] 57190 GFR/1.73 sq M.predicted among non-blacks MDRD (S/P/Bld) [Vol rate/Area] mL/min/{1.73_m2} Normal 60 - 999 [facility] Comment on above: Performed By: #### 2 59461 #### [facility],[address] [place] [address] 14558 Result Comment: ACCO RDING TO THE NATIONAL KIDNEY DISEASE EDUCATION PROGRAM(NKDE), A NORMAL eGFR IS A VALUE GREATER THAN OR EQUAL TO 60 ML/MIN/1.73 SQ METERS. CHRONIC KIDNEY DISEASE: <60mL/MIN/1.73 SQ METERS KIDNEY FAILURE: <15mL/MIN/1.73 SQ METERS THIS TEST SHOULD ONLY BE USED FOR PATIENTS 18 YEARS OF AGE AND OLDER. Globulin (S) [Mass/Vol] 3.4 g/dL Normal 1.5 - 3.8 [facility] Comment on above: Performed By: #### 2 29851 #### [facility],[address] [place] [address] 35061 Glucose [Mass/Vol] 100 mg/dL Normal 74 - 106 [facility] Comment on above: Performed By: #### 2 43638 #### [facility],[address] [place] [address] 68329 Potassium [Moles/Vol] 3.8 mmol/L Normal 3.5 - 5.1 [facility] Comment on above: Performed By: #### 2 78524 #### [facility],[address] [place] [address] 68495 Protein [Mass/Vol] 7.1 g/dL Normal 6.4 - 8.2 [facility] Comment on above: Performed By: #### 2 66016 #### [facility],[address] [place] [address] 51723 Sodium [Moles/Vol] 136 mmol/L Normal 136 - 145 [facility] Comment on above: Performed By: #### 2 25967 #### [facility],[address] [place] [address] 83097 Urea nitrogen [Mass/Vol] 6 mg/dL Low 7 - 18 [facility] Comment on above: Performed By: #### 2 89047 #### [facility],[address] [place] [address] 14768 D-DIMER, QUANTITATIVEon 06-0 D-DIMER QUANT <200 Normal 0 - 230 [facility] Comment on above: Performed By: #### 2 96353 #### [facility],[address] [place] [address] 05318 D-DIMER, QUANTITATIVE Normal [facility] Comment on above: Result Comment: ZULEMA T D-DIMER Performed By: #### 2 86100 #### [facility],[address] [place] [address] 59091 TROPONIN I, HIGH SENSITIVITY on 04-23-2024 HS TROPONIN <4.0 Normal 0.0 - 51.4 [facility] Comment on above: Performed By: #### 2 38071 #### [facility],[address] [place] [address] 02746 HS TROPONIN <4.0 Normal 0.0 - 51.4 [facility] Comment on above: Performed By: #### 2 82242 #### [facility],[address] [place] [address] 37854 CNOVon 01-20-2024 CNOV Office Visit ([facility]WSTR) SUSANA MCCLAIN ([id number]) 1990 F Date Time Provider Department 01/20/24 11:45 AM GLORIA BARRERA [facility]WSTR During your visit today, we recorded the following information about you: Temperature Pulse Respiration Blood pressure 98.6 degrees 100/minute 21/minute 122/80 Weight 88.4 kg Gloria Barrera PA-C 01/20/2024 12:09 PM Signed This note was created using [employer]. Subjective Susana Mcclain is a 33 year [...] ABSCESS AND WOUND CULTURE WITH GRAM STAIN BHAVIN Wu-C Allergies As of Date: 01/20/2024 Noted Allergy [...] CULTURE WITH GRAM STAIN [SQWCUL] Order #: [id number] FUTURE cephALEXin (KEFLEX) 500 mg capsuleTake 1 capsule by mouth four times daily for 7 days.Disp: 28 capsuleRfl: 0 ABSCESS AND WOUND CULTURE WITH GRAM STAIN [SQWCUL] Order #: (more content not included)... Normal [facility] Plate Take Out Worker Cytology Reporton 2022 Plate Take Out Worker Cytology Report . Pathology Reports Accession: Collected Date/Time: Received Date/Time: Pathologist: [id number] 09/14/2023 14:14 EDT 09/14/2023 18:00 EDT Plate Take Out Worker Cytology Report SPECIMEN: Specimen Description: Liquid Prep [...] and evaluated with the assistance of the [employer] ThinPrep Test Imaging System. Pathology Reports Accession: Collected Date/Time: Received Date/Time: Pathologist: [id number] 09/14/2023 14:14 EDT 09/14/2023 18:00 EDT Electronically Signed by Pathology report verified by [facility] Screened by: DW Electronically signed by Aida Morales Sign-Out Date: 09/21/2023 13:28 Performing Lab: [facility], [address] [place] [address] Pathology Dept Disclaimer The Pap test is a screening test for cervical cancer. As evidenced by published data, it is subject to both inherent false negative and false positive results. Your patient's results should be interpreted in context with pertinent clinical history including gynecological examination. Normal [facility] ([place] HPVon 09-20-2023 HPV Interp Normal See Interp HPVN [facility] ([place] Comment on above: Order Comment: Order placed by AP_HPV_ORDER rule from [id number] Result Comment: High Risk HPV Typing: NEGATIVE [...] HPVN Performed By: #### H PV #### [place] [address] HPV Source Cervix Normal [facility] ([place]) Comment on above: Order Comment: Order placed by AP_HPV_ORDER rule from [id number] Performed By: #### H PV #### [place] [address] CTPCRon 09-17-2023 C. trachomatis Interp Normal See CT Interp N [facility] ([place]) Comment on above: Result Comment: C. t rachomatis DNA not detected. Specimen is presumptive negative for C. trachomatis. A negative result does not preclude C. trachomatis infection because results depend on adequate specimen collection, absence of inhibitors, and sufficient DNA to be detected. See CT Interp N Performed By: #### C TPCR, NGPCR1 #### [facility] [address] [place] [address]314 C.trachomatis PCR Negative Normal Negative [facility] ([place]) Comment on above: Result Comment: Yvonne villalobos (PCR) assay performed on the Babatunde Wilbur 4800 system. Performed By: #### C TPCR, NGPCR1 #### [address] [address] Chlam Source Urine Normal [facility] ([place]) Comment on above: Performed By: #### C TPCR, NGPCR1 #### [address] [address] EZXQL7es 09-17-2023 GC PCR Source Urine Normal [facility] ([place]) Comment on above: Performed By: #### C TPCR, NGPCR1 #### [address] [address] N. gonorrhoeae (PCR) Negative Normal Negative [facility] ([place]) Comment on above: Result Comment: Yvonne villalobos (PCR) assay performed on the Babatunde Wilbur 4800 System. Performed By: #### C TPCR, NGPCR1 #### [address] [address] N. gonorrhoeae Interp Normal See NG Interp N [facility] ([place]) Comment on above: Result Comment: N. g onorrhoeae DNA not detected. Specimen is presumptive negative for N. gonorrhoeae. A negative result does not preclude Neisseria gonorrhoeae infection because results depend on adequate specimen collection, absence of inhibitors, and sufficient DNA to be detected. See NG Interp N Performed By: #### C TPCR, NGPCR1 #### [address] [address] [place] 05-30-2023 [facility] SUSANA MCCLAIN ([id number]) 1990 F Date Time Provider Department 05/30/23 [...] qualifies. Attempted to schedule virtual visit with [employer] and was denied. 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 SUSA[facility] MCCLAIN ([id number]) 1990 F Date Time Provider Department 04/26/23 [...] Reviewed: 01/26/2023 Reviewed by: Marco Antonio Costa APRN.AIRLINE COUNTER AGENT - Fully Assessed Reason for Visit: Patient Question [0287] Order(s):QUEtiapine (SEROQUEL) 200 mg tabletTake 1 tablet [...] veins [I83.90] 03/21/2013 ASCUS on Pap smear [SIB8040] 04/11/2013 Pain in joint, lower leg [M25.569] [...] Encounter Status:Closed by CEDRICK CLARK on 04/27/23 [facility] 02-12-2023 RABIA Telephone (PSYCBE) SUSANA MCCLAIN ([id number]) 1990 F Date Time Provider Department 02/12/23 DENEEN ROLON PSYCBE During your visit today, we recorded the following information about you: Mary Glover LPN 02/12/2023 8:51 AM Signed Please schedule patient for a FU visit with Deneen on a Sunday afternoon. Patient will see visit on my chart. needs financial clearance. Dilia Montalvo Dallin Pss 02/12/2023 12:46 PM Signed Placed referral for [facility] [employer]. OON for Kalpesh. Once cleared patient will be called. Mary Glover LPN 02/14/2023 8:12 AM Signed Spoke to patient and given date/time of 03/09/2023 at 2:00 pm virtually. 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 SUSANA MCCLAIN ([id number]) 1990 F Date Time Provider Department 02/09/23 MARCO ANTONIO COSTA During your visit today, we recorded the following information about you: Marco Antonio Costa APRN.CNP 02/09/2023 4:32 PM Signed Please let Susana know that I received all her lab results. All of her autoimmune blood work is normal. Her vitamin D level is low. I recommend she begin taking Vitamin D3 5000 international unit(s) daily, this can be found in the vitamin section. No other concerns. BRAXTON Crain RN 02/09/2023 4:38 PM Signed Pt called and is notified of providers results and instructions. Pt voices understanding. 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 Sufficiency/Optimal Levels: 31-80 ng/mL Toxicity: > 100 ng/mL. Test performed by chemiluminescent immunoassay. Performed By: #### 2 276-4, 3016-3, 51113-7, 1988-03 #### [facility] CLIA [id number] [address] [place] [address] [place] CBC panel Auto (Bld)on 02-08 Erythrocyte distribution width (RBC) [Ratio] 14.1 % Normal 11.5-15.0 [facility] Comment on above: Order Comment: Speci men Type: BLOOD SPECIMEN Ordering Facility: [facility] Address: [address] [place] [address] Performed By: #### 2 276-4, 3015-3, , 1988-03 #### [facility] CLIA [id number] [address] [place] [address] [place] Hematocrit (Bld) [Volume fraction] 43.0 % Normal 36.0-46.0 [facility] Comment on above: Order Comment: Speci men Type: BLOOD SPECIMEN Ordering Facility: [facility] Address: [address] [place] [address] Performed By: #### 2 276-4, 3015-3, , 1988-03 #### [facility] CLIA [id number] [address] [place] [address] [place] Hemoglobin (Bld) [Mass/Vol] 14.4 g/dL Normal 11.5-15.5 [facility] Comment on above: Order Comment: Speci men Type: BLOOD SPECIMEN Ordering Facility: [facility] Address: [address] [place] [address] Performed By: #### 2 276-4, 301-3, , 1988-03 #### [facility] CLIA [id number] [address] [place] [address] [place] MCH (RBC) [Entitic mass] 29.2 pg Normal 26.0-34.0 [facility] Comment on above: Order Comment: Speci men Type: BLOOD SPECIMEN Ordering Facility: [facility] Address: [address] [place] [address] Performed By: #### 2 276-4, 3016-3, , 1988-03 #### [facility] CLIA [id number] [address] [place] [address] [place] MCHC (RBC) [Mass/Vol] 33.5 g/dL Normal 30.5-36.0 [facility] Comment on above: Order Comment: Speci men Type: BLOOD SPECIMEN Ordering Facility: [facility] Address: [address] [place] [address] Performed By: #### 2 276-4, 3016-3, , 1988-03 #### [facility] CLIA [id number] [address] [place] [address] [place] MCV (RBC) [Entitic vol] 87.2 fL Normal 80.0-100.0 [facility] Comment on above: Order Comment: Speci men Type: BLOOD SPECIMEN Ordering Facility: [facility] Address: [address] [place], [place] [address] Performed By: #### 2 276-4, 3016-3, 80934-7, 1988-03 #### [facility] CLIA [id number] [address] [place] [address] [place] Nucleated RBC (Bld) [#/Vol] 10*3/uL Normal <0.01 [facility] Comment on above: Order Comment: Speci men Type: BLOOD SPECIMEN Ordering Facility: [facility] Address: [address] [place] [address] Performed By: #### 2 276-4, 3016-3, , 1988-03 #### [facility] CLIA [id number] [address] [address] [place] Platelet mean volume (Bld) [Entitic vol] 10.2 fL Normal 9.0-12.7 [facility] Comment on above: Order Comment: Speci men Type: BLOOD SPECIMEN Ordering Facility: [facility] Address: [address] [place], [place] [address] Performed By: #### 2 276-4, 3016-3, , 1988-03 #### [facility] CLIA [id number] [address] [place] [address] [place] Platelets (Bld) [#/Vol] 258 10*3/uL Normal 150-400 [facility] Comment on above: Order Comment: Speci men Type: BLOOD SPECIMEN Ordering Facility: [facility] Address: [address] [place], [place] [address] Performed By: #### 2 276-4, 3016-3, , 1988-03 #### [facility] CLIA [id number] [address] [place] [address] [place] RBC (Bld) [#/Vol] 4.93 10*6/uL Normal 3.90-5.20 [facility] Comment on above: Order Comment: Speci men Type: BLOOD SPECIMEN Ordering Facility: [facility] Address: [address] [place] [address] Performed By: #### 2 276-4, 3016-3, , 1988-03 #### [facility] CLIA [id number] [address] [place], [place] [id number] [place] WBC (Bld) [#/Vol] 11.37 10*3/uL High 3.70-11.00 [facility] Comment on above: Order Comment: Speci men Type: BLOOD SPECIMEN Ordering Facility: [facility] Address: [address] [place], [place] [address] Performed By: #### 2 276-4, 3016-3, 58508-4, 1988-03 #### [facility] CLIA [id number] [facility] [place] [address] [place] CRP SerPl-mCncon 02-08-2023 CRP [Mass/Vol] mg/L Normal <0.9 [facility] Comment on above: Order Comment: Speci men Type: BLOOD SPECIMEN Ordering Facility: [facility] Address: [address] [place], [place] [address] Performed By: #### 2 276-4, 3015-3, , 1988-03 #### [facility] CLIA [id number] [address] [place] [address] [place] Centromere Ab IF Ql (S)on Centromere Ab Qn (S) <0.2 Normal <1.0 [facility] Comment on above: Order Comment: Speci men Type: BLOOD SPECIMEN Ordering Facility: [facility] Address: [address] [place], [place] [address] Result Comment: Anti -centromere antibody is used as in aid in diagnosis of systemic sclerosis. Clinical correlation is required. Test Methodology: Multiplex flow immunoassay. Performed By: #### 2 276-4, 3015-3, , 1988-03 #### [facility] CLIA [id number] [address] [place] [address] [place] CENTROMERE AB QUAL Negative Normal Negative [facility] Comment on above: Order Comment: Speci men Type: BLOOD SPECIMEN Ordering Facility: [facility] Address: [address] [place], [place] [address] Performed By: #### 2 276-4, 3015-3, , 1988-03 #### [facility] CLIA [id number] [address] [place] [address] [place] Chromatin Ab Qnon 02-08-2023 CHROMATIN AB QUAL Negative Normal Negative [facility] Comment on above: Order Comment: Speci men Type: BLOOD SPECIMEN Ordering Facility: [facility] Address: [address] [place] [address] Performed By: #### 2 276-4, 3016-3, 60944-3, 1988-03 #### [facility] CLIA [id number] [address] [place] [address] [place] Chromatin Ab SerPl-aCncon Chromatin Ab Qn <0.2 Normal <1.0 [facility] Comment on above: Order Comment: Speci men Type: BLOOD SPECIMEN Ordering Facility: [facility] Address: [address] [place] [address] Result Comment: Test Methodology: Multiplex flow immunoassay. Performed By: #### 2 276-4, 3016-3, , 1988-03 #### [facility] CLIA [id number] [address] [place] [address] [facility] Comprehensive metabolic 2000 panelon 02-08-2023 Albumin [Mass/Vol] 4.4 g/dL Normal 3.9-4.9 [facility] Comment on above: Order Comment: Speci men Type: BLOOD SPECIMEN Ordering Facility: [facility] Address: [address] [place] [address] Performed By: #### 2 4323-8, 47715-3, 3024-7, 3053-6 #### [facility] CLIA [id number] [address] [place] [address] [place] ALP [Catalytic activity/Vol] 46 U/L Normal 34-123 [facility] Comment on above: Order Comment: Speci men Type: BLOOD SPECIMEN Ordering Facility: [facility] Address: [address] [place] [address] Performed By: #### 2 4323-8, 69890-5, 3024-7, 3053-6 #### [facility] CLIA [id number] [address] [place] [address] [place] ALT [Catalytic activity/Vol] 23 U/L Normal 7-38 [facility] Comment on above: Order Comment: Speci men Type: BLOOD SPECIMEN Ordering Facility: [facility] Address: [address] [place] [address] Performed By: #### 2 4323-8, 21686-0, 3024-7, 3053-6 #### [facility] CLIA [id number] [address] [place] [address] [place] Anion gap [Moles/Vol] 12 mmol/L Normal 9-18 [facility] Comment on above: Order Comment: Speci men Type: BLOOD SPECIMEN Ordering Facility: [facility] Address: [address] [place] [address] Performed By: #### 2 4323-8, 62401-8, 3024-7, 3053-6 #### [facility] CLIA [id number] [address] [place] [address] [place] AST [Catalytic activity/Vol] 26 U/L Normal 13-35 [facility] Comment on above: Order Comment: Speci men Type: BLOOD SPECIMEN Ordering Facility: [facility] Address: [address] [place], [place] [address] Performed By: #### 2 4323-8, 73448-7, 3024-7, 3053-6 #### [facility] CLIA [id number] [address] [place] [address] [place] Bilirubin [Mass/Vol] 0.4 mg/dL Normal 0.2-1.3 [facility] Comment on above: Order Comment: Speci men Type: BLOOD SPECIMEN Ordering Facility: [facility] Address: [address] [place], [place] [address] Performed By: #### 2 4323-8, 08533-5, 3024-7, 3053-6 #### [facility] CLIA [id number] [address] [place] [address] [place] Calcium [Mass/Vol] 10.2 mg/dL Normal 8.5-10.2 [facility] Comment on above: Order Comment: Speci men Type: BLOOD SPECIMEN Ordering Facility: [facility] Address: [address] [place], [place] [address] Performed By: #### 2 4323-8, 77013-2, 3024-7, 3053-6 #### [facility] CLIA [id number] [address] [place] [address] [place] Chloride [Moles/Vol] 104 mmol/L Normal 97-105 [facility] Comment on above: Order Comment: Speci men Type: BLOOD SPECIMEN Ordering Facility: [facility] Address: [address] [place], [place] [address] Performed By: #### 2 4323-8, 03818-1, 3024-7, 3053-6 #### [facility] CLIA [id number] [address] [place] [address] [place] CO2 [Moles/Vol] 26 mmol/L Normal 22-30 [facility] Comment on above: Order Comment: Speci men Type: BLOOD SPECIMEN Ordering Facility: [facility] Address: [address] [place], [place] [address] Performed By: #### 2 4323-8, 55118-6, 3024-7, 3053-6 #### [facility] CLIA [id number] [address] [place] [address] [place] Creatinine [Mass/Vol] 0.92 mg/dL Normal 0.58-0.96 [facility] Comment on above: Order Comment: Speci men Type: BLOOD SPECIMEN Ordering Facility: [facility] Address: [address] [place], [place] [address] Performed By: #### 2 4323-8, 68703-3, 3024-7, 3053-6 #### [facility] CLIA [id number] [address] [place], [place] [address] [place] ESTIMATED GLOMERULAR FILTRATION RATE 86 mL/min/1.73m??? Normal >=60 [facility] Comment on above: Order Comment: Bailee hoffman Type: BLOOD SPECIMEN Ordering Facility: [facility] Address: [address] [place] [address] Result Comment: Mitzy mated Glomerular Filtration Rate [...] actual GFR. Performed By: #### 2 4323-8, 19751-6, 3024-7, 3053-6 #### [facility] CLIA [id number] [address] [place] [address] [place] Glucose [Mass/Vol] 95 mg/dL Normal 74-99 [facility] Comment on above: Order Comment: Bailee hoffman Type: BLOOD SPECIMEN Ordering Facility: [facility] Address: [address] [place] [address] Result Comment: The [place] Diabetes Association (ADA) provides guidance for cutoff [...] Standards of Medical Care in Diabetes 2016, [place] [employer]. Diabetes Care. 2016.39(Suppl 1). Performed By: #### 2 4323-8, 00399-0, 3024-7, 3053-6 #### [facility] CLIA [id number] [address] [place] [id number] [place] Potassium [Moles/Vol] 4.4 mmol/L Normal 3.7-5.1 [facility] Comment on above: Order Comment: Speci men Type: BLOOD SPECIMEN Ordering Facility: [facility] Address: [address] [place] [address] Performed By: #### 2 4323-8, 27189-4, 3024-7, 3053-6 #### [facility] CLIA [id number] [address] [place] [address] [place] Protein [Mass/Vol] 7.4 g/dL Normal 6.3-8.0 [facility] Comment on above: Order Comment: Speci men Type: BLOOD SPECIMEN Ordering Facility: [facility] Address: [address] [place] [address] Performed By: #### 2 4323-8, 88439-9, 3024-7, 3053-6 #### [facility] CLIA [id number] [address] [place] [address] [place] Sodium [Moles/Vol] 142 mmol/L Normal 136-144 [facility] Comment on above: Order Comment: Speci men Type: BLOOD SPECIMEN Ordering Facility: [facility] Address: [address] [place] [address] Performed By: #### 2 4323-8, 25539-2, 3024-7, 3053-6 #### [facility] CLIA [id number] [address] [place] [address] [place] Urea nitrogen [Mass/Vol] 11 mg/dL Normal 7-21 [facility] Comment on above: Order Comment: Speci men Type: BLOOD SPECIMEN Ordering Facility: [facility] Address: [address] [place] [address] Performed By: #### 2 4323-8, 31388-7, 3024-7, 3053-6 #### [facility] CLIA [id number] [address] [place] [address] [place] Cyclic citrullinated peptide IgG Qnon 02-08-2023 CCP ANTIBODY IGG QUALITATIVE Negative Normal Negative [facility] Comment on above: Order Comment: Speci men Type: BLOOD SPECIMEN Ordering Facility: [facility] Address: [address] [place] [address] Performed By: #### 2 276-4, 6-3, 03698-2, 1988-03 #### [facility] CLIA [id number] [address] [place] [address] [place] Jo1 Ab Ser-aCncon 2022 Anel-1 extractable nuclear Ab Qn (S) <0.2 Normal <1.0 [facility] Comment on above: Order Comment: Speci men Type: BLOOD SPECIMEN Ordering Facility: [facility] Address: [address] [place] [address] Performed By: #### 2 276-4, 3015-3, , 1988-03 #### [facility] CLIA [id number] [address] [place] [address] OF AURE [place] DEICER KIT ASSEMBLER Ab Ser-aCncon 2022 Ribonucleoprotein extractable nuclear Ab Qn (S) <0.2 Normal <1.0 [facility] Comment on above: Order Comment: Speci men Type: BLOOD SPECIMEN Ordering Facility: [facility] Address: [address] [place], [place] [address] Performed By: #### 2 276-4, 3016-3, , 1988-03 #### [facility] CLIA [id number] [address] [place] [address] [place] SM IgG Ser-aCncon 2022 Ramires extractable nuclear IgG Qn (S) <0.2 Normal <1.0 [facility] Comment on above: Order Comment: Speci men Type: BLOOD SPECIMEN Ordering Facility: [facility] Address: [address] [place], [place] [address] Performed By: #### 2 276-4, 3016-3, 55143-9, 1988-03 #### [facility] CLIA [id number] [address] [place] [address] [place] SS-A Ab Ser-aCncon 02-08 Sjogrens syndrome-A extractable nuclear Ab Qn (S) <0.2 Normal <1.0 [facility] Comment on above: Order Comment: Speci men Type: BLOOD SPECIMEN Ordering Facility: [facility] Address: [address] [place] [address] Result Comment: Test Methodology: Multiplex flow immunoassay. Performed By: #### 2 276-4, 3013, , 1988-03 #### [facility] CLIA [id number] [address] [place] [address] [place] SS-B Ab Ser-aCncon 02-08 Sjogrens syndrome-B extractable nuclear Ab Qn (S) <0.2 Normal <1.0 [facility] Comment on above: Order Comment: Speci men Type: BLOOD SPECIMEN Ordering Facility: [facility] Address: [address] [place] [address] Result Comment: Anti -SSB (anti-La) antibody is used as an aid in diagnosis of a variety of systemic autoimmune diseases, especially for Sjogren's syndrome and systemic lupus erythematosus. Clinical correlation is required. Test Methodology: Multiplex flow immunoassay. Performed By: #### 2 276-4, 301-3, 75411-2, 1988-03 #### [facility] CLIA [id number] [address] [place] [address] [place] ESR Westergren method (Bld) [Velocity]on 02-08-2023 ESR (Bld) [Velocity] 8 mm/h Normal 0-20 [facility] Comment on above: Order Comment: Speci men Type: BLOOD SPECIMEN Ordering Facility: [facility] Address: [address] [place] [address] Performed By: #### 2 276-4, 3015-3, , 1988-03 #### [facility] CLIA [id number] [address] [place] [address] [place] Ferritin SerPl-mCncon 2022 Ferritin [Mass/Vol] 61.1 ng/mL Normal 14.7-205.1 [facility] Comment on above: Order Comment: Speci men Type: BLOOD SPECIMEN Ordering Facility: [facility] Address: [address] [place], [place] [address] Performed By: #### 2 276-4, 3015-3, , 1988-03 #### [facility] CLIA [id number] [address] [place] [address] [place] Iron and Iron binding capaci ty panelon 02-08-2023 Iron [Mass/Vol] 99 ug/dL Normal 41-186 [facility] Comment on above: Order Comment: Speci men Type: BLOOD SPECIMEN Ordering Facility: [facility] Address: [address] [place], [place] [address] Performed By: #### 2 4323-8, 24419-3, 3024-7, 3053-6 #### [facility] CLIA [id number] [address] [place] [address] [place] Iron binding capacity [Mass/Vol] 362 ug/dL Normal 232-386 [facility] Comment on above: Order Comment: Speci men Type: BLOOD SPECIMEN Ordering Facility: [facility] Address: [address] [place], [place] [address] Performed By: #### 2 4323-8, 86228-3, 3024-7, 3053-6 #### [facility] CLIA [id number] [address] [place] [address] [place] Iron/TIBC [Molar ratio] 27.3 % Normal 15.0-57.0 [facility] Comment on above: Order Comment: Speci men Type: BLOOD SPECIMEN Ordering Facility: [facility] Address: [address] [place] [address] Performed By: #### 2 4323-8, 47848-0, 3024-7, 3053-6 #### [facility] CLIA [id number] [address] [place] [address] [place] Anel-1 extractable nuclear Ab Qn (S)on 02-08-2023 ANEL 1 ANTIBODY QUAL Negative Normal Negative [facility] Comment on above: Order Comment: Speci dalton Type: BLOOD SPECIMEN Ordering Facility: [facility] Address: [address] [place] [address] Result Comment: Anti -ANEL-1 antibody is used as an aid in diagnosis of polymyositis and dermatomyositis especially with pulmonary involvement. A negative result cannot rule out polymyositis or dermatomyositis. Clinical correlation is required. Test Methodology: Multiplex flow immunoassay. Performed By: #### 2 276-4, 3016-3, 13456-7, 1988-03 #### [facility] CLIA [id number] [address] [place] [address] [place] Nuclear Ab IA Ql (S)on 02-08 MARY BY EIA, QUAL Negative Normal Negative [facility] Comment on above: Order Comment: Bailee hoffman Type: BLOOD SPECIMEN Ordering Facility: [facility] Address: [address] [place] [address] Result Comment: The qualitative antinuclear antibody screen test performed using enzyme immunoassay including the following antigens: dsDNA, histones, SS-A, SS-B, Sm, Sm/DEICER KIT ASSEMBLER, Scl-70, Anel-1, and centromeric antigens. Performed By: #### 2 276-4, 3016-3, 23983-6, 1988-03 #### [facility] IA [id number] [address] [place] [address] [place] Rheumatoid fact SerPl-aCncon 02-08-2023 Rheumatoid factor Qn [IU]/mL Normal <16 [facility] Comment on above: Order Comment: Bailee hoffman Type: BLOOD SPECIMEN Ordering Facility: [facility] Address: [address] Performed By: #### 2 276-4, 3015-3, , 1988-03 #### [facility] CLIA [id number] [address] [place] [address] [place] Ribonucleoprotein extractabl e nuclear Ab Qn (S)on 02-08-2023 ANTI-DEICER KIT ASSEMBLER QUAL Negative Normal Negative [facility] Comment on above: Order Comment: Speci men Type: BLOOD SPECIMEN Ordering Facility: [facility] Address: [address] [place] [address] Performed By: #### 2 276-4, 3015-3, , 1988-03 #### [facility] CLIA [id number] [address] [place] [address] [place] RIBOSOMAL DEICER KIT ASSEMBLER QUAL Negative Normal Negative [facility] Comment on above: Order Comment: Speci men Type: BLOOD SPECIMEN Ordering Facility: [facility] Address: [address] [place] [address] Result Comment: Anti -Ribosomal RNA (Ribosomal P) antibody is used as an aid in diagnosis of systemic autoimmune diseases especially systemic lupus erythematosus and mixed connective tissue disease. Cross-reactivity with Anti-ramires antibody is not uncommon. Clinical correlation is required. Test Methodology: Multiplex flow immunoassay. Performed By: #### 2 276-4, 3015-3, , 1988-03 #### [facility] CLIA [id number] [address] [place] [address] [place] SCL-70 extractable nuclear I gG IA Qn (S)on 02-08-2023 SCLERODERMA AB QUAL Negative Normal Negative [facility] Comment on above: Order Comment: Speci men Type: BLOOD SPECIMEN Ordering Facility: [facility] Address: [address] [place] [address] Performed By: #### 2 276-4, 3015-3, , 1988-03 #### [facility] CLIA [id number] [address] [place] [address] [place] SCLERODERMA IGG AB <0.2 Normal <1.0 [facility] Comment on above: Order Comment: Bailee hoffman Type: BLOOD SPECIMEN Ordering Facility: [facility] Address: [address] [place] [address] Result Comment: Scl- 70/Scleroderma antibody test is used as an aid in diagnosis of systemic sclerosis especially the diffuse cutaneous form. A negative result cannot rule out systemic sclerosis. The final interpretation should consider clinical picture and other test results such as anti-centromere antibody. Test Methodology: Multiplex flow immunoassay. Performed By: #### 2 276-4, 3016-3, 65566-7, 1988-03 #### [facility] CLIA [id number] [address] [place] [address] [place] Sjogrens syndrome-A extracta ble nuclear Ab Qn (S)on 02-08-2023 SSA ANTIBODY QUAL Negative Normal Negative [facility] Comment on above: Order Comment: Bailee hoffman Type: BLOOD SPECIMEN Ordering Facility: [facility] Address: [address] [place] [address] Performed By: #### 2 276-4, 3015-3, , 1988-03 #### [facility] CLIA [id number] [address] [place] [address] [place] Sjogrens syndrome-B extracta ble nuclear Ab Qn (S)on 02-08-2023 SSB ANTIBODY QUAL Negative Normal Negative [facility] Comment on above: Order Comment: Bailee hoffman Type: BLOOD SPECIMEN Ordering Facility: [facility] Address: [address] [place] [address] Performed By: #### 2 276-4, 3015-3, , 1988-03 #### [facility] CLIA [id number] [address] [place] [address] [place] Ramires extractable nuclear Ig G Qn (S)on 02-08-2023 SM ANTIBODY QUAL Negative Normal Negative [facility] Comment on above: Order Comment: Speci men Type: BLOOD SPECIMEN Ordering Facility: [facility] Address: [address] [place] [address] Result Comment: Anti -Sm (Ramires) antibody is used as an aid in diagnosis of systemic lupus erythematosus and its presence is associated with renal disease. A negative result cannot rule out systemic lupus erythematosus. Clinical correlation is required. Test Methodology: Multiplex flow immunoassay. Performed By: #### 2 276-4, 3016-3, 43300-3, 1987-5 #### [facility] CLIA [id number] [address] [place] [address] [place] [facility] T3 [Mass/Vol] 111 ng/dL Normal 79-165 [facility] Comment on above: Order Comment: Jonathoni dalton Type: BLOOD SPECIMEN Ordering Facility: [facility] Address: [address] [place] [address] Performed By: #### 2 4323-8, 69757-4, 3024-7, 3053-6 #### [facility] CLIA [id number] [address] [place] [address] [place] T4 Free SerPl-mCncon 023 Free T4 [Mass/Vol] 1.0 ng/dL Normal 0.9-1.7 [facility] Comment on above: Order Comment: Speci dalton Type: BLOOD SPECIMEN Ordering Facility: [facility] Address: [address] [place], [place] [address] Performed By: #### 2 4323-8, 47410-7, 3024-7, 3053-6 #### [facility] CLIA [id number] [address] [place] [address] [place] THYROID PEROXIDASE ANTIBODY BLOODon 02-08-2023 TPO Ab Qn [IU]/mL Normal <5.6 [facility] Comment on above: Order Comment: Speci dalton Type: BLOOD SPECIMEN Ordering Facility: [facility] Address: [address] [place], [place] [address] Result Comment: Thyr oid Peroxidase Antibody test is used as an aid in diagnosis of autoimmune thyroid disease. Clinical correlation is required. Performed By: #### M ICRO #### [facility] CLIA [id number] [address] [place] [address] [place] TSH SerPl-aCncon 02-08-2023 TSH Qn 1.030 m[IU]/L Normal 0.270-4.200 [facility] Comment on above: Order Comment: Bailee hoffman Type: BLOOD SPECIMEN Ordering Facility: [facility] Address: [address] [place] [address] Result Comment: If t he patient is , TSH reference range varies by gestational period: First Trimester (weeks 9-12): 0.180-2.990 mIU/L Second Trimester: 0.110-3.980 mIU/L Third Trimester: 0.480-4.710 mIU/L Feliz Leblanc et al. A Practical Approach for the Verifications and Determination of Site- and Trimester-Specific Reference Intervals for Thyroid Function tests in . Thyroid, 2019:29:3:412-420. Pro E, et al. 2017 Guidelines of the [place] Thy[employer] Association for the Diagnosis and Management of Thyroid Disease during and the . Thyroid, 2017:27:3:315-389. Performed By: #### 2 276-4, 3016-3, 96523-8, 1988-03 #### [facility] CLIA [id number] [address] [place] [address] [place] Vit B12 SerPl-mCncon 023 Cobalamin (Vitamin B12) [Mass/Vol] 568 pg/mL Normal 232-1245 [facility] Comment on above: Order Comment: Bailee hoffman Type: BLOOD SPECIMEN Ordering Facility: [facility] Address: [address] [place], [place] [address] Performed By: #### 2 276-4, 3016-3, , 1988-03 #### [facility] CLIA [id number] [address] [place] [address] STATES OF AURE cCP IgG SerPl-aCncon 023 Cyclic citrullinated peptide IgG Qn <15 Normal <20 [facility] Comment on above: Order Comment: Speci men Type: BLOOD SPECIMEN Ordering Facility: [facility] Address: [address] [place], [place] [address] Performed By: #### 2 276-4, 3016-3, 30145-5, 1988-03 #### [facility] CLIA [id number] [address] [facility] [address] OF AURE CNOVon 01-26-2023 CNOV Office Visit (FAMPWS) SUSANA MCCLAIN ([id number]) 1990 F Date Time Provider Department 01/26/23 1:40 PM MARCO ANTONIO COSTA During your visit today, we recorded the following information about you: Temperature Pulse Respiration Blood pressure 99.5 degrees 83/minute 16/minute 122/84 Weight 85.7 kg Marco Antonio Costa APRN.CNP 01/26/2023 4:02 PM Signed Chief Complaint Patient presents with: Pain, Back: Lower back, Abcess drained in Er - October 2022 HPI Susana Mcclain is a 32 year old female who presents here today for Above Complaints.. Today: Had abscess drained that was right by her tailbone in ED at [facility] on 10/2022. Seems to come back [...] - CCP (more content not included)... Normal [facility] UA DIP, URINE (POC)on 2021 BILIRUBIN UA (POCT) Negative Negative [facility] CLARITY UA (POCT) Clear [facility] COLOR UA (POCT) Yellow [facility] GLUCOSE UA (POCT) Negative Negative mg/dL [facility] HEMOGLOBIN/BLOOD UA (POCT) Trace-lysed Abnormal Negative [facility] KETONE UA (POCT) Negative Negative mg/dL [facility] LEUKOCYTES UA (POCT) Small Abnormal Negative [facility] NITRITE UA (POCT) Negative Negative [facility] PH UA (POCT) 6.0 4.5 - 8.0 [facility] Protein Ql (U) Negative Negative mg/dL [facility] SPECIFIC GRAVITY UA (POCT) <=1.005 Abnormal 1.005 - 1.030 [facility] UROBILINOGEN UA (POCT) 0.2 E.U./dL Normal E.U./dL [facility] US THYROID/PARATHYROIDon [facility] Clinical Summary: Liborio n 03-14-2022 [facility] OP Visit Invalid Interpretation Code [facility] Work Phone: Clinical Summary: Liborio marrero 01-27-2022 [facility] OP Visit Invalid Interpretation Code [facility] Work Phone: ANES Daquan 10-15-2018 ANES POST HNO ID: [id number] Author: Alec Harris Service: Anesthesiology Author Type: [...] 2018 TIME: 3:44 PM PAGER/CONTACT #: anesthesia [facility] ANES PREOPon 10-15-2018 ANES PREOP HNO ID: [id number] Author: Chas Walsh Service: Anesthesiology Author Type: [...] within 48 hours of Surgery/Procedure. SIGNATURE: Chas Wlash MD PATIENT NAME: Susana Mcclain DATE: October 15, 2018 TIME: 9:53 AM CSN: [id number] [facility] BRIEF OP NOTon 10-15-2018 BRIEF OP NOT HNO ID: [id number] Author: Pati Tamayo Service: Vascular Surgery Author Type: Physician Type: Brief Op Note Filed: 10/15/2018 2:15 PM Note Text: BRIEF OP NOTE LOG ID: [id number] Surgery/Procedure Date: 10/15/2018 Incision/Procedure Start Time: 12:10 PM Incision Close/Procedure End Time: 1:50 PM Surgeon(s)/Procedura list(s) and Montessori Lead Teacher(s): Surgeon(s) and Role: * Pati Tamayo - [...] 15, 2018 TIME: 2:14 PM PAGER/CONTACT #: [facility] OPERATIVE NOon 10-15-2018 OPERATIVE NO HNO ID: [id number] Author: Pati Tamayo Service: Vascular Surgery Author Type: Physician Type: Operative Report Filed: 11/04/2018 1:40 PM Note Text: [facility] - Operative Report SUSANA MCCLAIN : 1990 AGE: 28. SEX: F PATIENT TYPE: A HOSP SVC: ALESSANDRO LOCATION: [facility] ATTENDING PHYSICIAN: Pati Tamayo D.O. CSN NUMBER: [id number] DATE OF SURGERY/PROCEDURE: 10/15/2018 INCISION/PROCEDURE START TIME: 12:10. INCISION CLOSE/PROCEDURE END TIME: 13:50. PREOPERATIVE DIAGNOSIS: Symptomatic varicose veins. POSTOPERATIVE DIAGNOSIS: Symptomatic varicose veins. SURGEON: Pati Tamayo D.O. THICKENER OPERATOR: Roz Aldridge. SURGERY/PROCEDURE: Right leg stab phlebectomy, [...] with the assistance of Roz Aldridge. Julienne Earl:[id number] /[id number] [facility] PT EDon 10-15-2018 PT ED HNO ID: [id number] Author: Micaela MoscosoRn) JOE Geronimo Service: Nursing [...] Signed By: Micaela Geronimo RN In Department: [facility] SURGERY [facility] PT ED HNO ID: [id number] Author: Porsha MoscosoRn) Tolentino, RN Service: (none) Author Type: Registered Nurse [...] AFFECTING LEARNING: None Electronically Signed By: Porsha Tolentino, RN In Department: [facility] SURGERY Normal [facility] SURGICAL PATHOLOGYon 018 SURGICAL PATHOLOGY Specimen originated from [facility] Specimen #: [id number] Submitting Physician: PATI TAMAYO FINAL DIAGNOSIS Right [...] VEINS OF LEG WITH PAIN, RIGHT, LMP: 1117-18, HCG NEGATIVE GROSS DESCRIPTION A. Received in formalin labeled as varicose veins right leg are multiple tortuous pieces of vascular tissue aggregating to 5.0 x 4.5 x 0.3 cm. No thrombi are identified. No calcification is present. Geology Associate sections are submitted in one cassette. Gross examination performed at [facility], [facility] [address], [place] [address] TIPPLE GREASER/lbk 10/15/2018 Date of Report: 10/16/2018 Date of Procedure: 10/15/2018 Date of Receipt: 10/15/2018 Submitted by: PATI TAMAYO Location: [facility] Diagnostic interpretation performed at [facility], [address] [address]. [facility] Comment on above: Performed By: #### P ATHS #### [facility] [address] [place] [id number] [phone] HOSPon 09-03-2018 HOSP Patient:Susana Mcclain MRN: Height:5' [...] for the following basenames: K,HCT Progress Notes ([facility]): Sylvia Navarro APRN.[place] 10/02/2018 10:36 AM Signed This note was created using NoteWriter. Subjective Susana Mcclain is a 28 year old female. The history is provided by the patient. No hogshead salvage was used. Neck Pain This is a [...] and exercise - f/u PRN Sylvia Navarro APRN.[facility] Vital Signs Date Time Vital Sign Value Performing Clinician Facility 12-15-2024 08:00-0500 Body height 175.3 cm Angel Harris MD Work Phone: [facility] 12-15-2024 08:00-0500 Body mass index (BMI) [Ratio] 27.76 kg/m2 Angel Harris MD Work Phone: [facility] 12-15-2024 08:00-0500 Body weight 85.28 kg Angel Harris MD Work Phone: [facility] 12-15-2024 08:00-0500 Diastolic blood pressure 62 mm[Hg] Angel Harris MD Work Phone: [facility] 12-15-2024 08:00-0500 Heart rate 58 /min Angel Harris MD Work Phone: [facility] 12-15-2024 08:00-0500 SaO2% (BldA) [Mass fraction] 98 % Angel Harris MD Work Phone: [facility] 12-15-2024 08:00-0500 Systolic blood pressure 112 mm[Hg] Angel Harris MD Work Phone: [facility] 01-20-2024 11:53-0500 Body temperature 98.6 [degF] Gloria Athy PA-C Work Phone: [facility] 01-20-2024 11:53-0500 Body weight 88.36 kg Gloria Athy PA-C Work Phone: [facility] 01-20-2024 11:53-0500 Diastolic blood pressure 80 mm[Hg] Gloria Athy PA-C Work Phone: [facility] 01-20-2024 11:53-0500 Heart rate 100 /min Gloria Athy PA-C Work Phone: [facility] 01-20-2024 11:53-0500 Respiratory rate 21 /min Gloria Athy PA-C Work Phone: [facility] 01-20-2024 11:53-0500 SaO2% (BldA) [Mass fraction] 98 % Gloria Athy PA-C Work Phone: [facility] 01-20-2024 11:53-0500 Systolic blood pressure 122 mm[Hg] Gloria Athy PA-C Work Phone: [facility] 01-26-2023 13:47-0500 Body temperature 99.5 [degF] Marco Antonio Julissa FILENET P8 DEVELOPER.AIRLINE COUNTER AGENT Work Phone: [facility] 01-26-2023 13:47-0500 Body weight 85.73 kg Marco Antonio Julissa FILENET P8 DEVELOPER.AIRLINE COUNTER AGENT Work Phone: [facility] 01-26-2023 13:47-0500 Diastolic blood pressure 84 mm[Hg] Marco Antonio Julissa FILENET P8 DEVELOPER.AIRLINE COUNTER AGENT Work Phone: [facility] 01-26-2023 13:47-0500 Heart rate 83 /min Marco Antonio Julissa FILENET P8 DEVELOPER.AIRLINE COUNTER AGENT Work Phone: [facility] 01-26-2023 13:47-0500 Respiratory rate 16 /min Marco Antonio Julissa FILENET P8 DEVELOPER.AIRLINE COUNTER AGENT Work Phone: [facility] 01-26-2023 13:47-0500 SaO2% (BldA) [Mass fraction] 98 % Marco Antonio Julissa FILENET P8 DEVELOPER.AIRLINE COUNTER AGENT Work Phone: [facility] 01-26-2023 13:47-0500 Systolic blood pressure 122 mm[Hg] Marco Antonio Julissa FILENET P8 DEVELOPER.AIRLINE COUNTER AGENT Work Phone: [facility] 10-23-2022 11:02-0500 Body temperature 99.61 [degF] Chani Bogner PA-C Work Phone: [facility] 10-23-2022 11:02-0500 Body weight 84.91 kg Chani Bogner PA-C Work Phone: [facility] 10-23-2022 11:02-0500 Diastolic blood pressure 86 mm[Hg] Chani Bogner PA-C Work Phone: [facility] 10-23-2022 11:02-0500 Heart rate 84 /min Chani Bogner PA-C Work Phone: [facility] 10-23-2022 11:02-0500 Respiratory rate 20 /min Chani Bogner PA-C Work Phone: [facility] 10-23-2022 11:02-0500 SaO2% (BldA) [Mass fraction] 99 % Chani Vaughn PA-C Work Phone: [facility] 10-23-2022 11:02-0500 Systolic blood pressure 124 mm[Hg] Chani DELCID-Tanvi Work Phone: [facility] 09-29-2022 11:08-0500 Body temperature 99 [degF] Divina Levi APRN.AIRLINE COUNTER AGENT Work Phone: [facility] 09-29-2022 11:08-0500 Body weight 85.55 kg Divina Levi APRN.AIRLINE COUNTER AGENT Work Phone: [facility] 09-29-2022 11:08-0500 Diastolic blood pressure 78 mm[Hg] Divina Levi APRN.AIRLINE COUNTER AGENT Work Phone: [facility] 09-29-2022 11:08-0500 Heart rate 90 /min Divina Levi APRN.AIRLINE COUNTER AGENT Work Phone: [facility] 09-29-2022 11:08-0500 Respiratory rate 16 /min Divina Levi APRN.AIRLINE COUNTER AGENT Work Phone: [facility] 09-29-2022 11:08-0500 SaO2% (BldA) [Mass fraction] 99 % Divina Levi APRN.AIRLINE COUNTER AGENT Work Phone: [facility] 09-29-2022 11:08-0500 Systolic blood pressure 138 mm[Hg] Divina Levi APRN.AIRLINE COUNTER AGENT Work Phone: [facility] 07-03-2022 15:13-0400 Body weight 83.92 kg Thuy Bonilla FILENET P8 DEVELOPER.AIRLINE COUNTER AGENT Work Phone: [facility] 07-03-2022 15:13-0400 Diastolic blood pressure 78 mm[Hg] Thuy Kalick FILENET P8 DEVELOPER.AIRLINE COUNTER AGENT Work Phone: [facility] 07-03-2022 15:13-0400 Heart rate 82 /min Thuy Zurawick FILENET P8 DEVELOPER.AIRLINE COUNTER AGENT Work Phone: [facility] 07-03-2022 15:13-0400 Respiratory rate 16 /min Thuy Zurawick FILENET P8 DEVELOPER.AIRLINE COUNTER AGENT Work Phone: [facility] 07-03-2022 15:13-0400 Systolic blood pressure 122 mm[Hg] Thuy Zurawick FILENET P8 DEVELOPER.AIRLINE COUNTER AGENT Work Phone: [facility] 06-07-2022 10:51-0400 Body height 178 cm Marco Antonio Julissa FILENET P8 DEVELOPER.AIRLINE COUNTER AGENT Work Phone: [facility] 06-07-2022 10:51-0400 Body weight 85.19 kg Marco Antonio Julissa FILENET P8 DEVELOPER.AIRLINE COUNTER AGENT Work Phone: [facility] 06-07-2022 10:51-0400 Diastolic blood pressure 78 mm[Hg] Marco Antonio Julissa FILENET P8 DEVELOPER.AIRLINE COUNTER AGENT Work Phone: [facility] 06-07-2022 10:51-0400 Heart rate 107 /min Marco Antonio Julissa FILENET P8 DEVELOPER.AIRLINE COUNTER AGENT Work Phone: [facility] 06-07-2022 10:51-0400 SaO2% (BldA) [Mass fraction] 97 % Marco Antonio Julissa FILENET P8 DEVELOPER.AIRLINE COUNTER AGENT Work Phone: [facility] 06-07-2022 10:51-0400 Systolic blood pressure 118 mm[Hg] Marco Antonio Julissa FILENET P8 DEVELOPER.AIRLINE COUNTER AGENT Work Phone: [facility] NEGATED: Highlighted [id number] 08:19-0400 Body height 175.26 cm Yasmin Darin AT [facility] Work Phone: NEGATED: Highlighted [id number] 08:19-0400 Body height 175 cm Yasmin Darin AT [facility] Work Phone: NEGATED: Highlighted [id number] 08:19-0400 Body mass index (BMI) [Ratio] 28.9 kg/m2 Yasmin Darin AT [facility] Work Phone: NEGATED: Highlighted [id number] 08:19-0400 Body weight 88.45 kg Yasmin Webster AT [facility] Work Phone: NEGATED: Highlighted [id number] 08:19-0400 Body weight 89 kg Yasmin Webster AT [facility] Work Phone: NEGATED: Highlighted [id number] 12:17-0500 Body height 175.26 cm [facility] Work Phone: NEGATED: Highlighted [id number] 12:17-0500 Body height 175 cm [facility] Work Phone: NEGATED: Highlighted [id number] 12:17-0500 Body mass index (BMI) [Ratio] 28.9 kg/m2 [facility] Work Phone: NEGATED: Highlighted [id number] 12:17-0500 Body weight 88.45 kg [facility] Work Phone: NEGATED: Highlighted [id number] 12:17-0500 Body weight 89 kg [facility] Work Phone: Encounters Encounter Date Encounter Type Care Provider Facility Start: 06-15-2025 ambulatory Yasmine Beavers Facilit y:[facility] Start: 06-08-2025 Encounter for antibo dy response examination Tracey [facility] Start: 06-08-2025 Encounter for other preprocedural examination Tracey [facility] Start: 06-02-2025 ambulatory Yasmine Beavers Facilit y:[facility] Start: 06-02-2025 End: 06-02-2025 ambulatory Yasmine Beavers Facility:[facility] Start: 06-01-2025 ambulatory Yasmine Beavers Facilit y:[facility] Start: 05-18-2025 End: 05-18-2025 ambulatory Yasmine Beavers Facility:[facility] Start: 05-18-2025 End: 05-18-2025 ambulatory Yasmine Beavers Facility:[facility] Start: 05-05-2025 End: 05-05-2025 ambulatory Yasmine Beavers Facility:[facility] Start: 04-24-2025 ambulatory Rohit Reney Facility:[facility] Start: 04-24-2025 End: 04-24-2025 ambulatory Yasmine Beavers Facility:[facility] Start: 12-25-2024 ambulatory Angel Harris Facility :[facility] Start: 12-25-2024 End: 12-25-2024 ambulatory Angel Harris Facility:[facility] Start: 12-15-2024 End: 12-15-2024 Office outpatient new 30 minutes Angel Harris MD Work Phone: [facility] Comment on above: Palpitations (Primar y Dx); Precordial chest pain; Shortness of breath; Tobacco use Start: 12-15-2024 ambulatory YASMINE BEAVERS Facility: [facility] Start: 11-28-2024 End: 11-28-2024 ambulatory Yasmine Beavers Facility:[facility] Start: 11-07-2024 End: 11-07-2024 ambulatory Yasmine Beavers Facility:[facility] Start: 10-21-2024 End: 10-21-2024 ambulatory Yasmine Beavers Facility:[facility] Start: 10-01-2024 End: 10-01-2024 ambulatory Yasmine Beavers Facility:[facility] Start: 09-16-2024 End: 09-16-2024 ambulatory Yasmine Beavers Facility:[facility] Start: 08-22-2024 End: 08-22-2024 ambulatory Yasmine Beavers Facility:[facility] Start: 07-28-2024 ambulatory Yasmine Beavers Facilit y:[facility] Start: 04-23-2024 End: 04-23-2024 Emergency department patient visit DIANE TAVAREZ [facility] Start: 01-22-2024 Telephone encounter Divina Levi APRN.CNP Work Phone: [facility] Comment on above: Results; Orders Start: 01-20-2024 End: 01-20-2024 ambulatory ROBER SABA Facility:[facility] Start: 01-20-2024 End: 01-20-2024 Patient encounter procedure Gloria Barrera PA-C Work Phone: [facility] Comment on above: Surgical wound infec tion (Primary Dx) Start: 12-26-2023 ambulatory FLOR MAST FILENET P8 DEVELOPER-AIRLINE COUNTER AGENT Fa cility:[facility] Start: 09-14-2023 End: 09-19-2023 ambulatory FLOR MAST FILENET P8 DEVELOPER-AIRLINE COUNTER AGENT Facility:[facility] Start: 06-28-2023 End: 06-28-2023 [facility] Start: 03-05-2023 Refill Deneen lindsay FILENET P8 DEVELOPER.AIRLINE COUNTER AGENT Work Phone: Psychiatry Comment on above: Refill Request Start: 02-09-2023 Telephone encounter Marco Antonio Cheema FILENET P8 DEVELOPER.AIRLINE COUNTER AGENT Work Phone: [facility] Comment on above: Results Start: 02-08-2023 End: 02-09-2023 ambulatory MARCO ANTONIO BAKERUTZMAN Facility:[facility] Start: 02-08-2023 Encounter for genera l adult medical examination without abnormal findings ROBER SABA [facility] Start: 02-05-2023 End: 02-06-2023 ambulatory DENEEN ROLON Facility:[facility] Start: 02-05-2023 End: 02-05-2023 ambulatory Deneen Prisca Rolon FILENET P8 DEVELOPER.AIRLINE COUNTER AGENT Work Phone: Psychiatry Comment on above: NO SHOW (Primary Dx) Start: 02-05-2023 End: 02-05-2023 Telemedicine consultation with patient Deneen Keithxochitl FILENET P8 DEVELOPER.AIRLINE COUNTER AGENT Work Phone: [facility] Start: 01-26-2023 End: 01-26-2023 ambulatory ROBER SABA Facility:[facility] Start: 01-26-2023 End: 01-26-2023 Patient encounter procedure Marco Antonio Julissa FILENET P8 DEVELOPER.AIRLINE COUNTER AGENT Work Phone: [facility] Comment on above: Cyst near tailbone ( Primary Dx); Myalgia; Arthralgia, unspecified joint; Sensation of foreign body in throat; Well adult exam; Elevated serum creatinine; Vitamin D deficiency; Screening for diabetes mellitus; Encounter for vitamin deficiency screening; Screening for thyroid disorder Start: 01-26-2023 End: 01-26-2023 Patient encounter status Marco Antonio Costa AIRLINE COUNTER AGENT Work Phone: [facility] Start: 12-18-2022 End: 12-18-2022 [facility] Prisca Rolon APRN.AIRLINE COUNTER AGENT Work Phone: Psychiatry Comment on above: Generalized anxiety disorder (Primary Dx); Bipolar 1 disorder, depressed, moderate (HCC); History of attention deficit hyperactivity disorder (ADHD); History of posttraumatic stress disorder (PTSD) Start: 11-14-2022 End: 11-14-2022 [facility] Deneen Rolon APRN.AIRLINE COUNTER AGENT Work Phone: Psychiatry Comment on above: 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); Generalized anxiety disorder; History of attention deficit hyperactivity disorder (ADHD) Start: 10-23-2022 ambulatory Rober troy DO Work Phone: [facility] Comment on above: Nasal Congestion; Co ugh Start: 10-23-2022 Telephone encounter Rober Benji evans DO Work Phone: [facility] Comment on above: Migraine; Fever Start: 10-23-2022 End: 10-23-2022 Office outpatient visit 15 minutes Chani Vaughn PA-C Work Phone: [facility] Comment on above: Acute cough (Primary Dx); Nasal congestion Start: 10-13-2022 End: 10-13-2022 [facility] Deneen Rolon APRN.AIRLINE COUNTER AGENT Work Phone: Psychiatry Comment on above: 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); History of posttraumatic stress disorder (PTSD) Start: 09-29-2022 End: 09-29-2022 Patient encounter procedure Divina Levi APRN.AIRLINE COUNTER AGENT Work Phone: [facility] Comment on above: Urinary frequency (P rimary Dx); SOB (shortness of breath) Start: 07-03-2022 End: 07-03-2022 Patient encounter procedure Thuy Bonilla LUPE.AIRLINE COUNTER AGENT Work Phone: [facility] Comment on above: Bipolar disorder, in partial remission, most recent episode depressed (HCC) (Primary Dx); Chronic insomnia; ALFREDO (generalized anxiety disorder) Start: 07-03-2022 Telephone encounter Amie MEADOWS Work Phone: Psychology Comment on above: outreach Start: 06-23-2022 Telephone encounter Rober evans DO Work Phone: [facility] Comment on above: Patient Update Start: 06-20-2022 ambulatory Rober Mckeon son DO Work Phone: [facility] Comment on above: Er visit Start: 06-19-2022 Telephone encounter Marco Antonio Cheema APRN.AIRLINE COUNTER AGENT Work Phone: [facility] Comment on above: Opened In Error Start: 06-19-2022 End: 06-19-2022 Subsequent hospital visit by physician [facility] (I-Stat) Work Phone: Cat Scan Comment on above: Lung nodules [R91.8] Start: 06-14-2022 End: 06-14-2022 Subsequent hospital visit by physician [facility] Work Phone: Radiology Comment on above: Dysphagia, unspecifi ed type [R13.10] Start: 06-07-2022 End: 06-07-2022 Patient encounter procedure Marco Antonio Costa APRN.AIRLINE COUNTER AGENT Work Phone: [facility] Comment on above: Well adult exam ([facility] Dx); Agoraphobia; Bipolar disorder, in partial remission, most recent episode depressed (HCC); Chronic insomnia; Lung nodules; Screening for diabetes mellitus; Screening for thyroid disorder; Screening for lipid disorders; Dysphagia, unspecified type; Sensation of foreign body in throat; Encounter for vitamin deficiency screening Start: 06-07-2022 End: 06-07-2022 Patient encounter status Marco Antonio Costa APRN.AIRLINE COUNTER AGENT Work Phone: [facility] Start: 05-31-2022 End: 05-31-2022 Patient encounter procedure Zeny Sher FILENET P8 DEVELOPER.AIRLINE COUNTER AGENT Work Phone: [facility] Comment on above: Pilonidal abscess of elyssa cleft (Primary Dx) Start: 05-31-2022 ambulatory Rober Mckeon son DO Work Phone: [facility] [place] Comment on above: LESION, SKIN Start: 03-18-2022 ambulatory Cici CARBAJAL E COMMERCE WEB DEVELOPER Comment on above: Covid19 Concern Start: 03-18-2022 Distance Health (Vis it Summary) [place] [facility] [address] Provider External-Non[facility] Comment on above: Acute sinusitis, uns pecified - Diarrhea, unspecified - Nausea with vomiting, unspecified Start: 03-18-2022 External Contact [place]divian [facility] EXTERNAL-NON [facility] Start: 01-27-2022 End: 01-27-2022 Pt evaluation Andry Rivera MD Work Phone: [facility] Work Phone: Procedures Date Procedure Procedure Detail Performing Clinician Start: 09-29-2022 Urnls dip stick/tabl et rgnt auto w/o microscopy Boaz Matute MD Work Phone: Start: 06-19-2022 Ct thorax w/o contra st material Marco Antonio Costa FILENET P8 DEVELOPER.AIRLINE COUNTER AGENT Work Phone: Start: 06-14-2022 Us soft tissue head & neck real time imge docm Marco Antonio Costa FILENET P8 DEVELOPER.AIRLINE COUNTER AGENT Work Phone: Start: 03-14-2022 End: 03-14-2022 BP [...] 01-27-2022 End: 01-27-2022 Documentation of current medications [facility] Plan of Treatment Date Care Activity Detail Author Start: 05-17-[address] [facility] Start: 05-17-2031 Urine microalbumin profile DTaP,Tdap,Td Vaccine (8 - Td or Tdap) [facility] Start: 02-19-2027 Urine microalbumin profile DTAP,TDAP,TD (2 - Td or Tdap) [facility] Start: 07-20-2024 COVID-19 VACCINE () COVID-19 VACCINE () [facility] Start: 01-20-2024 End: 04-20-2024 Bacteria identified in Wound by Culture ABSCESS AND WOUND CULTURE WITH GRAM STAIN Microbiology Routine Surgical wound infection Expected: 01/20/2024, Expires: 04/20/2024 [facility] Work Phone: Comment on above: Expected: 01/20/2024, Expires: 4 Start: 11-19-2023 Depression Assessment Depression Assessment [facility] Start: 07-20-2023 Covid-19 Vaccine () Covid-19 Vaccine () [facility] Start: 07-20-2023 Influenza vaccination Influenza Vaccine (#1) [facility] Start: 01-26-2023 End: 03-28-2023 25-hydroxyvitamin D3 [Mass/volume] in Serum or Plasma VITAMIN D 25 HYDROXY Lab Routine Vitamin D deficiency Expected: 01/26/2023, Expires: 03/28/2023 [facility] Work Phone: Comment on above: Expected: 01/26/2023, Expires: 3 Start: 01-26-2023 End: 03-28-2023 C reactive protein [Mass/volume] in Serum or Plasma C-REACTIVE PROTEIN (CRP) Lab Routine Well adult exam Myalgia Arthralgia, unspecified joint Expected: 01/26/2023, Expires: 03/28/2023 [facility] Work Phone: Comment on above: Expected: 01/26/2023, Expires: 3 Start: 01-26-2023 End: 03-28-2023 CBC panel - Blood by Automated count CBC Lab Routine Screening for diabetes mellitus Well adult exam Myalgia Arthralgia, unspecified joint Expected: 01/26/2023, Expires: 03/28/2023 [facility] Work Phone: Comment on above: Expected: 01/26/2023, Expires: 3 Start: 01-26-2023 End: 03-28-2023 Cobalamin (Vitamin B12) [Mass/volume] in Serum or Plasma VITAMIN B12 BLOOD Lab Routine Vitamin D deficiency Encounter for vitamin deficiency screening Expected: 01/26/2023, Expires: 03/28/2023 [facility] Work Phone: Comment on above: Expected: 01/26/2023, Expires: 3 Start: 01-26-2023 End: 03-28-2023 Comprehensive metabolic 2000 panel - Serum or Plasma COMP METABOLIC PANEL Lab Routine Screening for diabetes mellitus Elevated serum creatinine Well adult exam Myalgia Arthralgia, unspecified joint Expected: 01/26/2023, Expires: 03/28/2023 [facility] Work Phone: Comment on above: Expected: 01/26/2023, Expires: 3 Start: 01-26-2023 End: 03-28-2023 Cyclic citrullinated peptide IgG Ab [Units/volume] in Serum or Plasma CCP ANTIBODY IGG Lab Routine Well adult exam Myalgia Arthralgia, unspecified joint Expected: 01/26/2023, Expires: 03/28/2023 [facility] Work Phone: Comment on above: Expected: 01/26/2023, Expires: 3 Start: 01-26-2023 End: 03-28-2023 Erythrocyte sedimentation rate SED RATE WESTERGREN Lab Routine Well adult exam Myalgia Arthralgia, unspecified joint Expected: 01/26/2023, Expires: 03/28/2023 [facility] Work Phone: Comment on above: Expected: 01/26/2023, Expires: 3 Start: 01-26-2023 End: 03-28-2023 Extractable nuclear Ab panel - Serum ANTI MARIPOSA ID Lab Routine Well adult exam Myalgia Arthralgia, unspecified joint Expected: 01/26/2023, Expires: 03/28/2023 [facility] Work Phone: Comment on above: Expected: 01/26/2023, Expires: 3 Start: 01-26-2023 End: 03-28-2023 Ferritin [Mass/volume] in Serum or Plasma FERRITIN BLD Lab Routine Well adult exam Myalgia Arthralgia, unspecified joint Expected: 01/26/2023, Expires: 03/28/2023 [facility] Work Phone: Comment on above: Expected: 01/26/2023, Expires: 3 Start: 01-26-2023 End: 03-28-2023 Iron and Iron binding capacity panel - Serum or Plasma IRON + TIBC Lab Routine Well adult exam Myalgia Arthralgia, unspecified joint Expected: 01/26/2023, Expires: 03/28/2023 [facility] Work Phone: Comment on above: Expected: 01/26/2023, Expires: 3 Start: 01-26-2023 End: 03-28-2023 Nuclear Ab [Presence] in Serum by Immunoassay MARY BLOOD Lab Routine Well adult exam Myalgia Arthralgia, unspecified joint Expected: 01/26/2023, Expires: 03/28/2023 [facility] Work Phone: Comment on above: Expected: 01/26/2023, Expires: 3 Start: 01-26-2023 End: 03-28-2023 Rheumatoid factor [Units/volume] in Serum or Plasma RHEUMATOID FACTOR BL Lab Routine Well adult exam Myalgia Arthralgia, unspecified joint Expected: 01/26/2023, Expires: 03/28/2023 [facility] Work Phone: Comment on above: Expected: 01/26/2023, Expires: 3 Start: 01-26-2023 End: 03-28-2023 THYROID PEROXIDASE ANTIBODY BLOOD THYROID PEROXIDASE ANTIBODY BLOOD Lab Routine Well adult exam Screening for thyroid disorder Myalgia Arthralgia, unspecified joint Expected: 01/26/2023, Expires: 03/28/2023 [facility] Work Phone: Comment on above: Expected: 01/26/2023, Expires: 3 Start: 01-26-2023 End: 03-28-2023 Thyrotropin [Units/volume] in Serum or Plasma TSH BLD Lab Routine Well adult exam Screening for thyroid disorder Myalgia Arthralgia, unspecified joint Expected: 01/26/2023, Expires: 03/28/2023 [facility] Work Phone: Comment on above: Expected: 01/26/2023, Expires: 3 Start: 01-26-2023 End: 03-28-2023 Thyroxine (T4) free [Mass/volume] in Serum or Plasma T4 FREE/FREE THYROX Lab Routine Well adult exam Screening for thyroid disorder Myalgia Arthralgia, unspecified joint Expected: 01/26/2023, Expires: 03/28/2023 [facility] Work Phone: Comment on above: Expected: 01/26/2023, Expires: 3 Start: 01-26-2023 End: 03-28-2023 Triiodothyronine (T3) [Mass/volume] in Serum or Plasma T3 BLD Lab Routine Well adult exam Screening for thyroid disorder Myalgia Arthralgia, unspecified joint Expected: 01/26/2023, Expires: 03/28/2023 [facility] Work Phone: Comment on above: Expected: 01/26/2023, Expires: 3 Start: 11-19-2022 DEPRESSION ASSESSMENT DEPRESSION ASSESSMENT [facility] Start: 07-20-2022 Influenza vaccination INFLUENZA (#1) [facility] Start: 06-07-2022 End: 08-07-2022 25-hydroxyvitamin D3 [Mass/volume] in Serum or Plasma VITAMIN D 25 HYDROXY Lab Routine Well adult exam Encounter for vitamin deficiency screening Expected: 06/07/2022, Expires: 08/07/2022 [facility] Work Phone: Comment on above: Expected: 06/07/2022, Expires: 2 Start: 06-07-2022 End: 08-07-2022 CBC panel - Blood by Automated count CBC Lab Routine Well adult exam Screening for diabetes mellitus Expected: 06/07/2022, Expires: 08/07/2022 [facility] Work Phone: Comment on above: Expected: 06/07/2022, Expires: 2 Start: 06-07-2022 End: 08-07-2022 Cobalamin (Vitamin B12) [Mass/volume] in Serum or Plasma VITAMIN B12 BLOOD Lab Routine Well adult exam Encounter for vitamin deficiency screening Expected: 06/07/2022, Expires: 08/07/2022 [facility] Work Phone: Comment on above: Expected: 06/07/2022, Expires: 2 Start: 06-07-2022 End: 08-07-2022 Comprehensive metabolic 2000 panel - Serum or Plasma COMP METABOLIC PANEL Lab Routine Well adult exam Screening for diabetes mellitus Expected: 06/07/2022, Expires: 08/07/2022 [facility] Work Phone: Comment on above: Expected: 06/07/2022, Expires: 2 Start: 06-07-2022 End: 08-07-2022 Ferritin [Mass/volume] in Serum or Plasma FERRITIN BLD Lab Routine Chronic insomnia Well adult exam Expected: 06/07/2022, Expires: 08/07/2022 [facility] Work Phone: Comment on above: Expected: 06/07/2022, Expires: 2 Start: 06-07-2022 End: 08-07-2022 Hemoglobin A1c in Blood HGB A1C Lab Routine Well adult exam Screening for diabetes mellitus Expected: 06/07/2022, Expires: 08/07/2022 [facility] Work Phone: Comment on above: Expected: 06/07/2022, Expires: 2 Start: 06-07-2022 End: 08-07-2022 Iron and Iron binding capacity panel - Serum or Plasma IRON + TIBC Lab Routine Chronic insomnia Well adult exam Expected: 06/07/2022, Expires: 08/07/2022 [facility] Work Phone: Comment on above: Expected: 06/07/2022, Expires: 2 Start: 06-07-2022 End: 08-07-2022 Lipid 1996 panel - Serum or Plasma LIPID PANEL BASIC Lab Routine Well adult exam Screening for diabetes mellitus Screening for lipid disorders Expected: 06/07/2022, Expires: 08/07/2022 [facility] Work Phone: Comment on above: Expected: 06/07/2022, Expires: 2 Start: 06-07-2022 End: 08-07-2022 Thyroglobulin and Thyrogobulin Ab panel - Serum or Plasma THYROGLOBULIN BLD Lab Routine Well adult exam Screening for thyroid disorder Sensation of foreign body in throat Expected: 06/07/2022, Expires: 08/07/2022 [facility] Work Phone: Comment on above: Expected: 06/07/2022, Expires: 2 Start: 06-07-2022 End: 08-07-2022 THYROID PEROXIDASE ANTIBODY BLOOD THYROID PEROXIDASE ANTIBODY BLOOD Lab Routine Well adult exam Screening for thyroid disorder Sensation of foreign body in throat Expected: 06/07/2022, Expires: 08/07/2022 [facility] Work Phone: Comment on above: Expected: 06/07/2022, Expires: 2 Start: 06-07-2022 End: 08-07-2022 Thyrotropin [Units/volume] in Serum or Plasma TSH BLD Lab Routine Well adult exam Screening for diabetes mellitus Screening for thyroid disorder Expected: 06/07/2022, Expires: 08/07/2022 [facility] Work Phone: Comment on above: Expected: 06/07/2022, Expires: 2 Start: 06-07-2022 End: 08-07-2022 Thyroxine (T4) free [Mass/volume] in Serum or Plasma T4 FREE/FREE THYROX Lab Routine Well adult exam Screening for thyroid disorder Sensation of foreign body in throat Expected: 06/07/2022, Expires: 08/07/2022 [facility] Work Phone: Comment on above: Expected: 06/07/2022, Expires: 2 Start: 06-07-2022 End: 08-07-2022 Triiodothyronine (T3) [Mass/volume] in Serum or Plasma T3 BLD Lab Routine Well adult exam Screening for thyroid disorder Sensation of foreign body in throat Expected: 06/07/2022, Expires: 08/07/2022 [facility] Work Phone: Comment on above: Expected: 06/07/2022, Expires: 2 Start: 05-16-2022 End: 05-16-2022 Patient encounter procedure Appointment [facility] Work Phone: Start: 04-07-2022 COVID-19 VACCINE (3 - Booster for Pfizer series) COVID-19 VACCINE (3 - Booster for Pfizer series) [facility] Start: 03-14-2022 End: 03-14-2022 Patient encounter procedure Appointment [facility] Work Phone: Start: 01-27-2022 End: 01-27-2022 Patient encounter procedure Appointment [facility] Work Phone: Start: 01-02-2022 COVID-19 VACCINE (3 - Booster for Pfizer series) COVID-19 VACCINE (3 - Booster for Pfizer series) [facility] Start: 11-19-2021 DEPRESSION ASSESSMENT DEPRESSION ASSESSMENT [facility] Start: 11-07-2021 COVID-19 VACCINE (2 - Pfizer 3-dose series) COVID-19 VACCINE (2 - Pfizer 3-dose series) [facility] Start: 2021 HPV TESTING HPV TESTING [facility] Start: 2021 Screening for malignant neoplasm of cervix HPV Testing [facility] Start: 05-03-2020 PAP TESTING PAP TESTING [facility] Start: 05-03-2020 Screening for malignant neoplasm of cervix Pap Testing [facility] Start: 10-02-2019 Adult depression screening assessment DEPRESSION SCREENING [facility] Start: 2012 Screening for malignant neoplasm of cervix CERVICAL CANCER SCREENING DISCUSSION [facility] Start: 2010 ONE PNEUMOVAX PRIOR TO AGE 65 ONE PNEUMOVAX PRIOR TO AGE 65 [facility] Start: 2006 HIV screening HIV SCREENING DISCUSSION [facility] Start: 1997 PNEUMOCOCCAL (1 - PCV) PNEUMOCOCCAL (1 - PCV) [facility] Start: 1997 Pneumococcal vaccination Pneumococcal Vaccine (1 of 2 - PCV) [facility] Start: 1991 HEPATITIS B (1 of 3 - 3-dose series) HEPATITIS B (1 of 3 - 3-dose series) [facility] Start: 1991 Hepatitis C screening HEPATITIS C VIRUS SCREENING [facility] End: 07-07-2023 Ct thorax w/o contrast material CT CHEST WO IVCON Radiology Routine Lung nodules 1 Occurrences starting 06/07/2022 until 07/07/2023 [facility] Work Phone: Comment on above: 1 Occurrences starting 06/07/2022 until 07/07/2023 Ct thorax w/o contra st material CT CHEST WO IVCON Radiology Routine Lung nodules 06/19/2022 11:56 AM EDT [facility] Work Phone: Ecg routine ecg w/le ast 12 lds w/i&r [place] ECG ROUTINE ECG W/LEAST 12 LDS W/I&R [place] - OFFICE PERFORMED Routine Palpitations Precordial chest pain Shortness of breath Ordered: 12/15/2024 [facility] Comment on above: Ordered: 12/15/2024 Electrocardiogram wi th exercise test ECG, TREADMILL STRESS (NON-IMAGING) Stress Echocardiography Routine Palpitations Precordial chest pain Shortness of breath Ordered: 12/15/2024 [facility] Comment on above: Ordered: 12/15/2024 Influenza virus A an d B RNA and SARS-CoV-2 (COVID-19) N gene panel - Respiratory specimen by KRUPA with probe detection COVID WITH FLUA+B, ROUTINE Microbiology Routine Acute cough Nasal congestion 10/23/2022 11:19 AM EST [facility] Work Phone: End: 07-07-2023 Us soft tissue head & neck real time imge docm US THYROID/PARATHYROID Radiology Routine Dysphagia, unspecified type Sensation of foreign body in throat 1 Occurrences starting 06/07/2022 until 07/07/2023 [facility] Work Phone: Comment on above: 1 Occurrences starting 06/07/2022 until 07/07/2023 [facility] Immunizations Immunization Date Immunization Notes Care Provider Nicholas savage 09-06-2022 influenza virus vaccine, unspecified formulation Gloria Barrera PA-C Work Phone: [facility] 09-10-2019 influenza, injectabl e, quadrivalent, contains preservative Cici Briones RN [facility] Work Phone: 08-06-2017 influenza, injectabl e, quadrivalent, contains preservative Cici Briones RN [facility] 02-19-2017 tetanus toxoid, redu jonn diphtheria toxoid, and acellular pertussis vaccine, adsorbed Cici Brinoes RN [facility] Work Phone: 09-30-2015 influenza, injectabl e, quadrivalent, contains preservative Cici Briones RN [facility] 10-27-2014 influenza, seasonal, injectable Cici Briones RN [facility] Work Phone: 08-14-2011 influenza virus vaccine, unspecified formulation Cici Briones RN [facility] Payers Date Payer Category Payer Self-pay 2023 Unknown [id number] 2023 Unknown [id number] 2022 Unknown [id number] 2021 Unknown MMO M[employer] TPA [id number] 2021-Present [address] [place] [address] PPO [id number] 2021 Unknown [id number] [id number] 2017 Medicaid [place] [employer] [place] [employer] [id number] 2017-Present [phone] [facility] [address] [place] [address] Medicaid [id number] 2017 Medicaid [id number] [id number] [id number] 1991 Unknown [id number] 2.16.840.1.199547.3.579.2.627 1991 Unknown [id number] 2.16.840.1.457017.3.579.2.627 1991 Unknown [id number] 2.16.840.1.270033.3.579.2.651 1991 Unknown [id number] 2.16.840.1.452293.3.579.2.651 1991 Unknown [id number] 2.16.840.1.308690.3.579.2.594 Unknown [id number] 2.16.840.1.126643.3.579.2.462 Unknown [id number] 2.16.840.1.568940.3.579.2.462 Unknown [id number] 2.16.840.1.606783.3.579.2.462 Unknown [id number] 2.16.840.1.259137.3.579.2.462 Unknown [id number] 2.16.840.1.043897.3.579.2.462 Unknown [id number] 2.16.840.1.606638.3.579.2.462 Unknown [id number] 2.16.840.1.107961.3.579.2.462 Unknown [id number] 2.16.840.1.517141.3.579.2.462 Unknown [id number] 2.16.840.1.536543.3.579.2.462 Unknown [id number] 2.16.840.1.677659.3.579.2.462 Unknown [id number] 2.16.840.1.062870.3.579.2.462 Unknown [id number] 2.16.840.1.608596.3.579.2.462 Unknown [id number] 2.16.840.1.138916.3.579.2.462 Unknown [id number] 2.16.840.1.796080.3.579.2.462 Unknown [id number] 2.16.840.1.654366.3.579.2.462 Unknown [id number] 2.16.840.1.377790.3.579.2.462 Unknown [id number] 2.16.840.1.128662.3.579.2.462 Unknown [id number] 2.16.840.1.439388.3.579.2.462 Social History Date Type Detail Facility Start: 01-27-2022 End: 03-14-2022 Assertion Unknown if ever smoked [facility] Work Phone: Start: 10-14-2018 End: 10-13-2022 Tobacco smoking status NHIS Smokes tobacco daily [facility] Work Phone: Start: 12-15-2019 End: 10-19-2008 History of tobacco use Cigarette Smoker [facility] Work Phone: End: 10-19-2008 History of tobacco use Cigar Smoker [facility] Work Phone: Start: 10-14-2018 End: 12-15-2024 Tobacco use and exposure Smokeless tobacco non-user [facility] Work Phone: Start: 09-24-2020 End: 01-20-2024 Alcohol intake Current drinker of alcohol (finding) [facility] Start: 08-18-2020 End: 09-24-2020 History SDOH Alcohol Frequency 2 [facility] Start: 04-23-2020 End: 08-18-2020 History SDOH Alcohol Std Drinks 1 [facility] Start: 10-14-2018 History SDOH Alcohol Comment occasionally-does not drink on weekly basis [facility] Start: 04-23-2020 End: 08-18-2020 History SDOH Social Connections Phone 5 [facility] Start: 08-18-2020 End: 09-24-2020 History SDOH Social Connections Get Together 98 [facility] Start: 04-23-2020 End: 09-24-2020 History SDOH Social Connections Living 3 [facility] Start: 04-23-2020 Education 12 [facility] Start: 10-14-2018 End: 09-29-2022 Tobacco Comment 8 cigars per day-for about 1 month as of 10/14/18-previously smoked cigarettes on & off until 2007 [facility] Start: 1990 Sex Assigned At Not on file [facility] Start: 03-08-2022 End: 10-23-2022 Exposure to SARS-CoV-2 (event) Not sure [facility] Start: 09-19-2022 End: 09-29-2022 Exposure to SARS-CoV-2 (event) Yes [facility] Work Phone: Start: 10-13-2022 End: 12-15-2024 Cigarettes smoked current (pack per day) - Reported 0.5 [facility] Start: 08-18-2020 End: 12-15-2024 Social connection and isolation panel [facility] Frequency of Communication with Friends and Family Not on file [facility] How often to you hav e a drink containing alcohol? Monthly or less [facility] How many standard dr inks containing alcohol do you have on a typical day? 1 or 2 [facility] How often do you hav e 6 or more drinks on 1 occasion? Less than monthly [facility] How hard is it for y ou to pay for the very basics like food, housing, medical care, and heating Somewhat hard [facility] Work Phone: Do you feel stress - tense, restless, nervous, or anxious, or unable to sleep at night because your mind is troubled all the time - these days [OSQ] Very much [facility] (I/We) worried whekayla er (my/our) food would run out before (I/we) got money to buy more. Often true [facility] Work Phone: The food that (I/we) bought just didn't last, and (I/we) didn't have money to get more. DK or Refused [facility] Work Phone: At any time in the p ast 12 months, were you homeless or living in assisted [including now]? No [facility] Start: 12-15-2024 Tobacco smoking status NHIS Ex-smoker [facility] Start: 12-15-2019 History of tobacco use Current smoker [facility] Start: 12-15-2024 Alcoholic beverage intake Ex-drinker (finding) [facility] Start: 12-14-2024 Gender identity Identifies as female gender (finding) [facility] Start: 12-14-2024 Sexual orientation Heterosexual (finding) [facility] Medical Equipment Procedure Code Equipment Code Equipment Origin al Text Equipment Identifier Dates [facility] [id number] Start: 12-02-2013 Clinical Notes 08-31-2014 to 06-01-2025 Assessment & Plan Note - Angel Harris MD - 12/15/2024 8:58 AM ESTAssessment & Plan Note - Angel Harris MD - 12/15/2024 8:58 AM ESTPael Harris MD - 12/15/2024 8:00 AM EST Note Date & Type Note Facility 06-01-2025 Note [facility] Medical Records Department [address] [place] [address] History Physical Exam 06/01/25 1754 MR#: [id number] Acct: [id number] Name: SUSANA MCCLAIN Rep #: [id number] : 1990 35 From: Tracey Ryan MD PCP: Dr. Yasmine Beavers MD Status:[facility] Location: [place] [address] History and Physical Date of Admission: 06/02/25 [facility] [address], [address] [place] [address] OFFICE VISIT Date of Service: 05/18/25 MR#: [id number] Acct: [id number] Name: SUSANA MCCLAIN Rep #: [id number] : 1990 Provider: Dr. 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 [facility] 12-15-2024 Evaluation + Plan note Associated Problem(s): Tobacco use She states she underwent hypnosis in the past to attempt to stop cigarette smoking. She notes that worked for proximally 3 months. She then returned to cigarette smoking. She has been counseled on the importance to discontinue her tobacco intake for both cardiac and noncardiac reasons. [facility] 12-15-2024 Miscellaneous Notes Associated Problem(s): Tobacco use [...] channel antagonist therapy. documented in this encounter [facility] 12-15-2024 Evaluation + Plan note Associated Problem(s): [...] she admits to being a cigarette smoker. [facility] 12-15-2024 Evaluation + Plan note Associated Problem(s): Precordial chest pain She does have an element of precordial chest pain. It is somewhat atypical. However, it was felt reasonable that she undergo further evaluation with a treadmill stress test. This will also provide additional evaluation with respect to concerns of her underlying cardiac ectopy or cardiac rhythm. [facility] 12-15-2024 Evaluation + Plan note Associated Problem(s): [...] therapy or possibly calcium channel antagonist therapy. [facility] 12-15-2024 History of Present illness Narrative Images from the original note were not included. Referring provider: Yasmine Beavers MD Primary care provider: No primary care provider on file. Dear Dr. Beavers, I had the pleasure of seeing your patient, Susana Mcclain, at the [facility] on 12/15/2024. 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 She knows she intermittently has a [...] Resource Strain: Medium Risk (09/24/2020) Received from [facility] Overall Financial Resource Strain (CARDIA) Difficulty of Paying Living Expenses: Somewhat hard Food Insecurity: Food Insecurity Present (09/24/2020) Received from [facility] Hunger Vital Sign Worried About Running Out of Food in the Last Year: Often true Ran Out of Food in the Last Year: Patient declined Transportation Needs: No Transportation Needs (09/24/2020) Received from [facility] PRAPARE - Transportation Lack of Transportation (Medical): No Lack of Transportation (Non-Medical): No Physical Activity: Insufficiently Active (08/18/2020) Received from [facility] Exercise Vital Sign Days of Exercise per Week: 5 days Minutes of Exercise per Session: 10 min Stress: Stress Concern Present (04/23/2020) Received from [facility] [place] of Occupational Health - Occupational Stress Questionnaire Feeling of Stress : Very much Social Connections: Unknown (08/18/2020) Received from [facility] Social Connection and Isolation Panel [NHANES] Frequency of Communication with Friends and Family: Not on file Frequency of Social Gatherings with Friends and Family: Patient declined Attends Congregational Services: Not on file Active Member of Clubs or Organizations: Not on file Attends Club or Organization Meetings: Not on file Marital Status: Not on file Intimate Partner Violence: Not on file Housing Stability: High Risk (08/18/2020) Received from [facility] Housing Stability Vital Sign Unable to [...] Supplemental Information: ELECTROCARDIOGRAM 03/09/2023 EVENT MONITOR 10/21/2024 [facility] In summary, Ms. Mcclain is managed [...] all orders for this visit: Palpitations - [place] ECG ROUTINE ECG W/LEAST 12 LDS W/I&R - ECG, TREADMILL STRESS (NON-IMAGING) Precordial chest pain - [place] ECG ROUTINE ECG W/LEAST 12 LDS W/I&R - ECG, TREADMILL STRESS (NON-IMAGING) Shortness of breath - [place] ECG ROUTINE ECG W/LEAST 12 LDS W/I&R [...] to contact me. Sincerely, Angel Harris MD, [facility] Logistics Project Manager - Clinical Division of Cardiovascular Medicine Department of Internal Medicine [facility] Please be aware that portions of this note may have been completed with a voice recognition software system and an artificial intelligence system with the knowledge and approval of the patient. Despite efforts to edit the note mis-transcribed words may still be present. 12 Lead EKG performed per provider's order, per policy, and given to Steven for interpretation. Medical bench hand offered to patient prior to sensitive procedure and patient declined KATE documentation tool explained to patient. Patient accepted the use of KATE documentation tool during today's visit. documented in this encounter [facility] 01-22-2024 Miscellaneous Notes Patient notified her that her antibiotic was not effective did call doxycycline and patient will get that picked up and started right away. documented in this encounter [facility] 01-20-2024 Note HNO ID: [id number] Author: GLORIA BARRERA PA-C Service: ? Author Type: Physician Montessori Lead Teacher Type: Progress Notes Filed: 01/20/2024 12:09 Note Text: This note was created using SocialBuyriter. Subjective Susana Mcclain is a 33 year [...] CULTURE WITH GRAM STAIN Gloria Barrera PA-C [facility] 01-20-2024 History of Present illness Narrative Images from the original note were not included. This note was created using Sanswireter. Subjective Susana Mcclain is a 33 year [...] Gloria Barrera PA-C documented in this encounter [facility] 09-15-2023 Note . MICRO - Microbiology PROCEDURE: [...] Locations *1: This test was performed at: [address], [facility] , [facility] [place] 03-05-2023 Miscellaneous Notes Patient has been [...] Mary Glover LPN documented in this encounter [facility] 02-09-2023 Miscellaneous Notes Pt called and [...] Antonio Costa APRN.CNP documented in this encounter [facility] 02-05-2023 Note HNO ID: [id number] Author: Deneen Rolon APRN.CNP Service: ? Author Type: Nurse Practitioner Type: Progress Notes Filed: 02/05/2023 10:42 AM Note Text: Patient did not log in for her virtual visit with the provider today. She did not answer her phone when she was contacted prior to the appointment time. [facility] 02-05-2023 History of Present illness Narrative Patient did not log in for her virtual visit with the provider today. She did not answer her phone when she was contacted prior to the appointment time. documented in this encounter [facility] 01-26-2023 Note HNO ID: [id number] Author: Marco Antonio Costa APRN.CNP Service: ? [...] right by her tailbone in ED at [facility] on 10/2022. Seems to come back [...] improvement with omepraz (more content not included)... [facility] 01-26-2023 Instructions Marco Antonio Costa APRN.EMERSON - 01/26/2023 2:11 PM EST Schedule with general surgery. Have your labs drawn. Start the omeprazole and take daily to see if this may be heartburn giving you this feeling in your throat. documented in this encounter [facility] 01-26-2023 History of Present illness Narrative Chief Complaint Patient presents with: Pain, Back: Lower back, Abcess drained in Er - October 2022 HPI Susana Mcclain is a 32 year old female who presents here today for Above Complaints.. Today: Had abscess drained that was right by her tailbone in ED at [facility] on 10/2022. Seems to come back [...] Antonio Costa APRN.EMERSON documented in this encounter [facility] 12-18-2022 Instructions Deneen Rolon APRN.CNP - 12/18/2022 9:47 AM EST Liana Meza, It was good to talk with you today. Below is a summary of the plan that we discussed during your appointment for reference. Of course, if you have any questions or concerns do not hesitate to reach out to me via a message or call. Deneen Posada APRN.CNP PLAN AND FOLLOW UP: YOU SHOULD [...] - Call the National Suicide Hotline at 8-807-ZDXHJDX ( ) or 5-133-103-TALK (4504) - Text 4HOPE to 094043 Medication Update: Seroquel 200 mg - take 1 tablet at bedtime. Gabapentin 300 mg - take 1 capsule three times a day. Utilize xanax only as needed for overwhelming episodes of anxiety and panic. Next appointment: --Schedule in 6 to 8 weeks or sooner if needed -- You may call the department appointment line at [phone] to schedule your appointment. -- Please call my nurse Mary at [phone] or send me a message in [employer] with any questions or concerns between appointments. 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 Interval Progress: Slightly improved Risks and benefits [...] which included preparing to see the patient, [id number] patient care, completing clinical documentation, and counseling and educating the patient/family/caregiver, ordering medications/labs. Deneen Rolon APRN.AIRLINE COUNTER AGENT December 18, 2022 9:30 AM This note was partially generated using [employer] recognition system. Note was reviewed for accuracy. There may be minor misspellings or grammar miscues with 3CI voice recognition. documented in this encounter [facility] 11-14-2022 Instructions Deneen Rolon APRN.CNP - 11/14/2022 [...] - Call the National Suicide Hotline at 6-207-RJPKPDD ( ) or 5-999-438-TALK (5896) - Text 4HOPE to 937216 Medication Update: Stop Trazodone Seroquel 150 mg - take 1 tablet every night at bedtime. Gabapentin 100 mg - take 1 capsules three times daily. Utilize xanax only as needed for overwhelming episodes of anxiety. Next appointment: --Schedule in 4 weeks or sooner if needed -- You may call the department appointment line at [phone] to schedule your appointment. -- Please call my nurse Mary at [phone] or send me a message in [employer] with any questions or concerns between appointments. documented in this encounter [facility] 11-14-2022 History of Present illness Narrative Images [...] which included preparing to see the patient, [id number] patient care, completing clinical documentation, and counseling and educating the patient/family/caregiver, ordering medications/labs. Deneen Rolon APRN.CNP November 14, 2022 8:27 AM This note was partially generated using [employer] voice recognition system. Note was reviewed for accuracy. There may be minor misspellings or grammar miscues with Dragon voice recognition. documented in this encounter [facility] 10-23-2022 Miscellaneous Notes Patient returned call. She is at [facility] ER at this time. Jasmina Blue [...] to report that she was seen in [facility] today and is waiting on influenza/covid [...] Flor Padgett LPN documented in this encounter [facility] 10-23-2022 History of Present illness Narrative 10/23/2022 [...] Chani Vaughn PA-C documented in this encounter [facility] 10-23-2022 Miscellaneous Notes Triage protocol recommended: PCP [...] TRAVEL: no Protocols used: Cough - Acute Bzspiquema-CEYJR-PP documented in this encounter [facility] 10-13-2022 Instructions Deneen Rolon APRN.EMERSON - 10/13/2022 2:08 PM EST Liana Meza, It was good to meet and talk with you today. Below is a summary of the plan that we discussed during your appointment for reference. Of course, if you have any questions or concerns do not hesitate to reach out to me via a message or call. Best, Deneen Rolon APRN.AIRLINE COUNTER AGENT PLAN AND FOLLOW UP: YOU SHOULD SEEK [...] - Call the National Suicide Hotline at 5-561-FWHNXRQ ( ) or 1-991-029-TALK (0702) - Text 4HTNT to 000543 Medication Update: - Stop Abilify - Seroquel (Quetiapine 50 mg) - take 1 tablet at bedtime. - Continue Trazodone and Xanax at the same dose. Next appointment: --Schedule in 4 weeks or sooner if needed -- You may call the department appointment line at [phone] to schedule your appointment. -- Please call my nurse Mary at [phone] or send me a message in [employer] with any questions or concerns between appointments. documented in this encounter [facility] 10-13-2022 History of Present illness Narrative Images [...] and lying from . 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 She was admitted to [facility]. The psychiatrist diagnosed her with Bipolar disorder [...] her that she was making it up. Bridgeton that after that things were sweeped under the rug. -Bridgeton that males in her family treated her [...] Therapist: Previously followed by a therapist at [facility] and [facility]. Current Degreaser: No Last Hospitalization: Yes, [facility] [...] No history of use or dependence SPIRITUALITY: Zoroastrianism [facility]: Susana Mcclain was adopted. Does not have a relationship with her adopted siblings. The patient was born in [place] and raised in [facility]. She completed High school, Some college. [...] which included preparing to see the patient, pdiq-jg-xduv patient care, completing clinical documentation, obtaining and/or reviewing separately obtained history, counseling and educating the patient/family/caregiver, ordering medications, tests, or procedures, independently interpreting results (not separately reported), and communicating results to the patient/family/caregiver. ADD ON PSYCHOTHERAPY CODE : No SIGNATURE: Deneen Rolon APRN.CNP PATIENT NAME: Susana Mcclain DATE: October 13, 2022 TIME: 1:02 PM PAGER : documented in this encounter [facility] 09-29-2022 History of Present illness Narrative Patient [...] will take her. documented in this encounter [facility] 07-03-2022 Miscellaneous Notes Behavioral Health Social Work Progress Note Patient identified for [facility] from: PCP Reason for referral: Resources Behavioral Health Resources: Psychology - talk therapy;Psychiatry med management [facility] encounter type: Telephone Encounter Attempts to Outreach: 1 attempt Patient Discharged?: No Patient reported that caregiver was able to meet their needs today?: Yes Call placed to patient to discuss behavioral health needs. Pt looking for mental health treatment, psych and therapy. Advised will send list of providers in [place]. Pt to reach [facility] Prn. DORI Pritchard July 03, 2022 documented in this encounter [facility] 07-03-2022 History of Present illness Narrative Chief [...] PRIMARY C[facility] BEHAVIORAL HEALTH ADULT Follow-up via hikechart message in 1-2 weeks to let me know how you are doing. RTO as needed. Prescription instructions reviewed with patient as applicable. Potential red flag symptoms discussed with the patient. Reviewed appropriate action plan to take if red flag symptoms occur. Patient agreeable to treatment plan. Thuy Bonilla APRN.CNP [address] [place] [address] documented in this encounter [facility] 06-23-2022 Miscellaneous Notes Pt informed, verbalized understanding Marilin Garner Ma Yes, agree with ER evaluation. Marco Antonio Costa APRN.CNP Patient calling said she was in [facility] ER last Sunday with pulse rate of [...] chest tightness. She said she called her [employer] office and not heard back from them. Advised to go to the ER for evaluation. documented in this encounter [facility] 06-19-2022 History of Present illness Narrative Radiology [...] 2022 3:36 PM documented in this encounter [facility] 06-14-2022 History of Present illness Narrative Radiology [...] Not applicable SIGNED BY: Zeny Mitchell RDMS RVT June 14, 2022 11:36 AM documented in this encounter [facility] 06-07-2022 Instructions Marco Antonio Costa APRN.EMERSON - 06/07/2022 11:33 AM EDT Hold your trazodone while using the Ambien. Let me know how you're doing with the Ambien. Restart you Abilify. Update me on this as well. Have your labs completed. Schedule your chest CT. Schedule your thyroid ultrasound. documented in this encounter [facility] 06-07-2022 History of Present illness Narrative Chief [...] diet of 1000 mg/day for under 50, 3179-4257 mg/day for 50+ - Smoking cessation encouraged; [...] - VITAMIN B12 BLOOD Marco Antonio Costa APRN.AIRLINE COUNTER AGENT documented in this encounter [facility] 05-31-2022 History of Present illness Narrative 32 year old female presents for abscess in rectum Patient is experiencing a pilonidal cyst, that is not treated here in the express care. Patient offered to schedule with surgery in morning, States she is in too much pain and uncomfortable Sent to ED documented in this encounter [facility] 05-31-2022 Miscellaneous Notes Noted. Agree with below. Thuy Bonilla APRN.AIRLINE COUNTER AGENT Patient calling with painful, draining sore on [...] States the area is painful Protocols used: [id number] documented in this encounter [facility] 03-18-2022 History of Present illness Narrative Visit Summary for Susana Mcclain - Gender: Female - Date of : 1990 Date: [id number] - Duration: 3 minutes Patient: Susana Mcclain Provider: Phillip Cleveland Patient Contact Information Address [address] [place] [phone] Visit Topics I ve been sick for [...] Adult Medicine.[Notification] Susana Mcclain is located in [place].[Notification] Susana Mcclain has shared health history... Diagnosis Acute sinusitis, unspecified Value: J01.90 Code: ICD-10-CM Diarrhea, unspecified Value: R19.7 Code: ICD-10-CM Nausea with vomiting, unspecified Value: R11.2 Code: ICD-10-CM Procedures Value: 17821 Code: CPT-4 OFFICE/OUTPATIENT VISIT EST Value: 44602 Code: CPT-4 OL DIG E/M SVC 11-20 [...] Phillip Cleveland( ) documented in this encounter [facility] 03-18-2022 Miscellaneous Notes Reason for Call: Patient [...] fever 7. RESPIRATORY STATUS: No wheezing 8. [id number]: Worse, nausea present now and also having chills 10. VACCINE: Yes, Pfizer 11. BOOSTER: Denies 12. : Denies 13. OTHER SYMPTOMS: Chills, fatigue, cough, congestion, runny nose, diarrhea and nausea 14. O2 SATURATION MONITOR: 98% on RA Patient was test for the flu and covid on 02/26 both were negative Protocols used: CORONAVIRUS (COVID-19) DIAGNOSED OR [id number] documented in this encounter [facility] 08-31-2014 History of Past i llness Narrative [...] of this encounter (statuses as of 03/18/2022) [facility] History of Past illness Narrative* Problem [...] of this encounter (statuses as of 03/19/2022) [facility] of [facility] Narrative* Problem [...] of this encounter (statuses as of 05/31/2022) [facility] Narrative* Problem [...] of this encounter (statuses as of 05/31/2022) [facility] Narrative* Problem [...] of this encounter (statuses as of 06/07/2022) [facility] Narrative* Problem [...] of this encounter (statuses as of 06/15/2022) [facility] Narrative* Problem [...] of this encounter (statuses as of 06/20/2022) [facility] Narrative* Problem [...] of this encounter (statuses as of 06/22/2022) [facility] Narrative* Problem [...] of this encounter (statuses as of 06/22/2022) [facility] Narrative* Problem [...] of this encounter (statuses as of 06/23/2022) [facility] Narrative* Problem [...] of this encounter (statuses as of 07/03/2022) [facility] Narrative* Problem [...] of this encounter (statuses as of 07/03/2022) [facility] Narrative* Problem [...] of this encounter (statuses as of 09/29/2022) [facility] Narrative* Problem [...] of this encounter (statuses as of 10/21/2022) [facility] Narrative* Problem [...] of this encounter (statuses as of 10/23/2022) [facility] Narrative* Problem [...] of this encounter (statuses as of 10/23/2022) [facility] Narrative* Problem [...] of this encounter (statuses as of 11/19/2022) [facility] Narrative* Problem [...] of this encounter (statuses as of 12/18/2022) [facility] Narrative* Problem [...] of this encounter (statuses as of 01/26/2023) [facility] Narrative* Problem [...] of this encounter (statuses as of 02/05/2023) [facility] Narrative* Problem [...] of this encounter (statuses as of 02/09/2023) [facility] Narrative* Problem [...] of this encounter (statuses as of 03/05/2023) [facility] Narrative* Problem [...] of this encounter (statuses as of 01/20/2024) [facility] Narrative* Problem [...] of this encounter (statuses as of 01/22/2024) [facility] note[facility] may be information available, but it has not been provided by the sender.[facility] Work Phone: Evaluation note* Diagnosis Pilonidal abscess of cleft- Primary Pilonidal cyst with abscess [facility] Well adult exam- Primary [...] and immunity disorders [facility] Diagnosis Dysphagia, unspecified type Sensation of foreign body in throat Other symptoms involving head and neck [facility] Diagnosis Lung nodules Other nonspecific abnormal finding of lung field [facility] Diagnosis Bipolar disorder, in partial remission, most recent episode depressed (HCC)- Primary Bipolar I disorder, most recent episode (or current) depressed, in partial or unspecified remission Chronic insomnia Insomnia, unspecified ALFREDO (generalized anxiety disorder) Generalized anxiety disorder [facility] Diagnosis Urinary frequency- Primary SOB (shortness of breath) Shortness of breath [facility] Diagnosis Moderate mixed bipolar I disorder (HCC)- Primary Bipolar I disorder, most recent episode (or current) mixed, moderate History of posttraumatic stress disorder (PTSD) [facility] Diagnosis Acute cough- Primary Nasal congestion Other diseases of nasal cavity and sinuses [facility] Diagnosis Moderate mixed bipolar I disorder (HCC)- Primary Bipolar I disorder, most recent episode (or current) mixed, moderate Generalized anxiety disorder History of attention deficit hyperactivity disorder (ADHD) [facility] Diagnosis Generalized anxiety disorder- Primary Bipolar 1 disorder, depressed, moderate (HCC) Bipolar I disorder, most recent episode (or current) depressed, moderate History of attention deficit hyperactivity disorder (ADHD) History of posttraumatic stress disorder (PTSD) [facility] Diagnosis Cyst near tailbone- Primary Pilonidal [...] for thyroid disorder [facility] Diagnosis NO SHOW- Primary [facility]* Diagnosis Surgical wound infection- Primary Other postoperative infection [facility]* Diagnosis Palpitations- Primary Precordial chest pain Precordial pain Shortness of breath Tobacco use Tobacco use disorder [facility] Instruction Description Start Date CompletedPatient advised to follow-up with Primary Care Physician for BMI management. [facility] Work Phone: Instructions* Instruction Description Start Date CompletedPatient advised to follow-up with Primary Care Physician for BMI management. [facility] Work Phone: Reason for referral (narrative)* Diagnostic Procedure Only (Routine) - Closed Specialty Diagnoses / Procedures Referred By Portia rivera Referred To Contact US IMAGING Diagnoses Dysphagia, unspecified type Sensation of foreign body in throat Procedures US THYROID/PARATHYROID US SOFT TISSUE HEAD & NECK REAL TIME IMGE Marco Antonio Anderson APRN.AIRLINE COUNTER AGENT [address] [place] [address] Us Imaging Referral ID Status Reason Start Date Expiration Date V isits Requested Visits Authorized [id number] Closed Auto-Generate d Referral 06/07/2022 07/07/2023 1 1 [facility] Summary Purpose Family History No Family [...] FoundDocuments on File Type Date Recorded Patient Geology Associate Expl anation Advance Directive(s) 10/15/2018 11:01 AM Documents on File Type Date Recorded Patient Geology Associate Expl anation Advance Directive(s) 10/15/2018 11:01 AM [...] TOMOGRAPHY THORAX W/O CNTRST Marco Antonio Costa APRN.AIRLINE COUNTER AGENT [address] [place] [address] Ct Imaging Referral ID Status Reason Start Date Expiration Date Visits Requested Visits Authorized [id number] Authorized Auto-Generat ed Referral 06/07/2022 11/18/2022 1 1 Specialty Diagnoses / Procedures Referred By Contac t Referred To Contact US IMAGING Diagnoses Dysphagia, unspecified type Sensation of foreign body in throat Procedures US THYROID/PARATHYROID US SOFT TISSUE HEAD & NECK REAL TIME IMGE DOCM Marco Antonio Costa, FILENET P8 DEVELOPER.AIRLINE COUNTER AGENT [address] [place] [address] Us Imaging Referral ID Status Reason Start Date Expiration Date Visits Requested Visits Authorized [id number] Authorized Auto-Generat ed Referral 06/07/2022 07/07/2023 1 1 Referral ID Status Reason Start Date Expiration Date V isits Requested Visits Authorized [id number] Closed Auto-Generate d Referral 06/07/2022 11/18/2022 1 1 Specialty Diagnoses / Procedures Referred By Contac t Referred To Contact General Surgery Diagnoses Cyst near tailbone Well adult exam Myalgia Arthralgia, unspecified joint Procedures CONSULT TO GENERAL SURGERY OFFICE/OUTPATIENT NEW HIGH MDM 60-74 MINUTES Marco Antonio Costa, FILENET P8 DEVELOPER.AIRLINE COUNTER AGENT [address] [place] [address] Referral ID Status Reason Start Date Expiration Date Visits Requested Visits Authorized [id number] Authorized PCP Requested Referral 01/26/2023 01/26/2024 1 1 Specialty Diagnoses / Procedures Referred By Contac t Referred To Contact Diagnoses Palpitations Precordial chest pain Shortness of breath Procedures ECG, TREADMILL STRESS (NON-IMAGING) [place] CV STRS TST XERS&/OR RX CONT ECG W/SI&R Angel Harris MD [address] [place] [address] [address] [place] [address] Referral ID Status Reason Start Date Expiration Date V isits Requested Visits Authorized [id number] New Request 12/15/2024 01/09/2026 1 1 Additional Source Comments INFORMATION SOURCE (unrecogn ized section and content) DATE CREATED AUTHOR 08/29/2019 [facility] DATE CREATED AUTHOR AUTHOR'S ORGANIZ ATION 01/17/2024 [facility] DATE CREATED AUTHOR AUTHOR'S ORGANIZ ATION 01/21/2024 [facility] DATE CREATED AUTHOR AUTHOR'S ORGANIZ ATION 04/24/2024 [facility] DATE CREATED AUTHOR AUTHOR'S ORGANIZ ATION 12/15/2024 [facility] DATE CREATED AUTHOR AUTHOR'S ORGANIZ ATION 06/11/2025 [facility] Reason for Visit (unrecogniz ed section and [...] REAL TIME IMGE DOCM Marco Antonio Costa, FILENET P8 DEVELOPER.AIRLINE COUNTER AGENT [address] [place] [address] Us Imaging Referral ID Status Reason Start Date Expiration Date V isits Requested Visits Authorized [id number] Closed Auto-Generate d Referral 06/07/2022 07/07/2023 [address] Specialty Diagnoses / Procedures Referred By Contac t Referred To Contact CT IMAGING Diagnoses Lung nodules Procedures CT CHEST WO IVCON DIAGNOSTIC COMPUTED TOMOGRAPHY THORAX W/O CNTRST Marco Antonio Costa, FILENET P8 DEVELOPER.AIRLINE COUNTER AGENT [address] [place] [address] Ct Imaging Referral ID Status Reason Start Date Expiration Date V isits Requested Visits Authorized [id number] Closed Auto-Generate d Referral 06/07/2022 11/18/2022 1 1 Reason Comments Opened In Error Reason Comments Patient Update Reason Comments Anxiety Depression Specialty Diagnoses / Procedures Referred By Contac t Referred To Contact Family Practice / FAMILY MEDICINE Diagnoses At risk for increased anxiety increased anxiety Procedures OFFICE/OUTPATIENT ESTABLISHED MOD MDM 30-39 MIN 4C EST Rober Saba L, DO [address] [place] [address] Thuy Bonilla, FILENET P8 DEVELOPER.AIRLINE COUNTER AGENT [address] [place] [address] Referral ID Status Reason Start Date Expiration Date V isits Requested Visits Authorized [id number] Authorized 07/03/2022 10/01/2022 10 10 Reason Comments [...] OUTSIDE ORDER PREFERS DR ANGEL HARRIS IN [place] PALPITATION Procedures [facility] Yasmine Beavers MD [address] [place] [address] Angel Harris MD [address] [facility] [address] [place] [address] Referral ID Status Reason Start Date Expiration Date V isits Requested Visits Authorized [id number] New Request 12/15/2024 01/09/2026 1 1 Source Comments (unrecognize d section and content) In the event this informatio n is protected by the Federal Confidentiality of Alcohol and Drug Abuse Patient Records regulations: The Federal rules restrict any use of the information to criminally investigate or prosecute any alcohol or drug abuse patient.[facility] the event this information is protected by the Federal Confidentiality of Alcohol and Drug Abuse Patient Records regulations: The Federal rules restrict any use of the information to criminally investigate or prosecute any alcohol or drug abuse patient.[facility] the event this information is protected by the Federal Confidentiality of Alcohol and Drug Abuse Patient Records regulations: The Federal rules restrict any use of the information to criminally investigate or prosecute any alcohol or drug abuse patient.[facility] the event this information is protected by the Federal Confidentiality of Alcohol and Drug Abuse Patient Records regulations: The Federal rules restrict any use of the information to criminally investigate or prosecute any alcohol or drug abuse patient.[facility] the event this information is protected by the Federal Confidentiality of Alcohol and Drug Abuse Patient Records regulations: The Federal rules restrict any use of the information to criminally investigate or prosecute any alcohol or drug abuse patient.[facility] the event this information is protected by the Federal Confidentiality of Alcohol and Drug Abuse Patient Records regulations: The Federal rules restrict any use of the information to criminally investigate or prosecute any alcohol or drug abuse patient.[facility] the event this information is protected by the Federal Confidentiality of Alcohol and Drug Abuse Patient Records regulations: The Federal rules restrict any use of the information to criminally investigate or prosecute any alcohol or drug abuse patient.[facility]In the event this information is protected by the Federal Confidentiality of Alcohol and Drug Abuse Patient Records regulations: The Federal rules restrict any use of the information to criminally investigate or prosecute any alcohol or drug abuse patient.[facility] the event this information is protected by the Federal Confidentiality of Alcohol and Drug Abuse Patient Records regulations: The Federal rules restrict any use of the information to criminally investigate or prosecute any alcohol or drug abuse patient.[facility] Hospital[facility] the event this information is protected by the Federal Confidentiality of Alcohol and Drug Abuse Patient Records regulations: The Federal rules restrict any use of the information to criminally investigate or prosecute any alcohol or drug abuse patient.[facility] HospitalIn the event this information is protected by the Federal Confidentiality of Alcohol and Drug Abuse Patient Records regulations: The Federal rules restrict any use of the information to criminally investigate or prosecute any alcohol or drug abuse patient.[facility] HospitalIn the event this information is protected by the Federal Confidentiality of Alcohol and Drug Abuse Patient Records regulations: The Federal rules restrict any use of the information to criminally investigate or prosecute any alcohol or drug abuse patient.[facility] HospitalIn the event this information is protected by the Federal Confidentiality of Alcohol and Drug Abuse Patient Records regulations: The Federal rules restrict any use of the information to criminally investigate or prosecute any alcohol or drug abuse patient.[facility] HospitalIn the event this information is protected by the Federal Confidentiality of Alcohol and Drug Abuse Patient Records regulations: The Federal rules restrict any use of the information to criminally investigate or prosecute any alcohol or drug abuse patient.[facility] HospitalIn the event this information is protected by the Federal Confidentiality of Alcohol and Drug Abuse Patient Records regulations: The Federal rules restrict any use of the information to criminally investigate or prosecute any alcohol or drug abuse patient.[facility] HospitalIn the event this information is protected by the Federal Confidentiality of Alcohol and Drug Abuse Patient Records regulations: The Federal rules restrict any use of the information to criminally investigate or prosecute any alcohol or drug abuse patient.[facility] HospitalIn the event this information is protected by the Federal Confidentiality of Alcohol and Drug Abuse Patient Records regulations: The Federal rules restrict any use of the information to criminally investigate or prosecute any alcohol or drug abuse patient.[facility] HospitalIn the event this information is protected by the Federal Confidentiality of Alcohol and Drug Abuse Patient Records regulations: The Federal rules restrict any use of the information to criminally investigate or prosecute any alcohol or drug abuse patient.[facility] HospitalIn the event this information is protected by the Federal Confidentiality of Alcohol and Drug Abuse Patient Records regulations: The Federal rules restrict any use of the information to criminally investigate or prosecute any alcohol or drug abuse patient.[facility] HospitalIn the event this information is protected by the Federal Confidentiality of Alcohol and Drug Abuse Patient Records regulations: The Federal rules restrict any use of the information to criminally investigate or prosecute any alcohol or drug abuse patient.[facility] HospitalIn the event this information is protected by the Federal Confidentiality of Alcohol and Drug Abuse Patient Records regulations: The Federal rules restrict any use of the information to criminally investigate or prosecute any alcohol or drug abuse patient.[facility] HospitalIn the event this information is protected by the Federal Confidentiality of Alcohol and Drug Abuse Patient Records regulations: The Federal rules restrict any use of the information to criminally investigate or prosecute any alcohol or drug abuse patient.[facility] HospitalIn the event this information is protected by the Federal Confidentiality of Alcohol and Drug Abuse Patient Records regulations: The Federal rules restrict any use of the information to criminally investigate or prosecute any alcohol or drug abuse patient.[facility] HospitalIn the event this information is protected by the Federal Confidentiality of Alcohol and Drug Abuse Patient Records regulations: The Federal rules restrict any use of the information to criminally investigate or prosecute any alcohol or drug abuse patient.[facility] HospitalIn the event this information is protected by the Federal Confidentiality of Alcohol and Drug Abuse Patient Records regulations: The Federal rules restrict any use of the information to criminally investigate or prosecute any alcohol or drug abuse patient.[facility] Care Teams (unrecognized sec tion and content) Audio Visual Production Specialist Relationship Specialty Start Date End Date Rober Saba, DO [address] [place] [address] PCP - General Family Practice 10/28/14 Audio Visual Production Specialist Relationship Specialty Start Date End Date Rober Saba DO [address] [place] [address] PCP - General Family Practice 10/28/14 Audio Visual Production Specialist Relationship Specialty Start Date End Date Rober Saba DO [address] [place] [address] PCP - General Family Practice 10/28/14 Audio Visual Production Specialist Relationship Specialty Start Date End Date Rober Saba DO [address] [place] [address] PCP - General Family Practice 10/28/14 Audio Visual Production Specialist Relationship Specialty Start Date End Date Rober Saba, DO [address] [place] [address] PCP - General Family Practice 10/28/14 Audio Visual Production Specialist Relationship Specialty Start Date End Date Rober Saba, DO [address] [place] [address] PCP - General Family Practice 10/28/14 Audio Visual Production Specialist Relationship Specialty Start Date End Date Rober Saba, DO [address] [place] [address] PCP - General Family Practice 10/28/14 Audio Visual Production Specialist Relationship Specialty Start Date End Date Rober Saba, DO [address] [place] [address] PCP - General Family Practice 10/28/14 Audio Visual Production Specialist Relationship Specialty Start Date End Date Rober Saba, DO [address] [place] [address] PCP - General Family Practice 10/28/14 Audio Visual Production Specialist Relationship Specialty Start Date End Date Rober Saba, DO [address] [place] [address] PCP - General Family Practice 10/28/14 Audio Visual Production Specialist Relationship Specialty Start Date End Date Rober Saba, DO [address] [place] [address] PCP - General Family Practice 10/28/14 Audio Visual Production Specialist Relationship Specialty Start Date End Date Rober Saba, DO [address] [place] [address] PCP - General Family Medicine 10/28/14 Audio Visual Production Specialist Relationship Specialty Start Date End Date Rober Saba, DO [address] [place] [address] PCP - General Family Medicine 10/28/14 Audio Visual Production Specialist Relationship Specialty Start Date End Date Rober Saba, DO [address] [place] [address] PCP - General Family Medicine 10/28/14 Audio Visual Production Specialist Relationship Specialty Start Date End Date Rober Saba, DO [address] [place] [address] PCP - General Family Medicine 10/28/14 Audio Visual Production Specialist Relationship Specialty Start Date End Date Rober Saba, DO [address] [place] [address] PCP - General Family Medicine 10/28/14 Audio Visual Production Specialist Relationship Specialty Start Date End Date Rober Saba, DO [address] [place] [address] PCP - General Family Medicine 10/28/14 Audio Visual Production Specialist Relationship Specialty Start Date End Date Rober Saba, [address] [place] [address] PCP - General Family Medicine 10/28/14 Audio Visual Production Specialist Relationship Specialty Start Date End Date Robre Saba, DO [address] [place] [address] PCP - General Family Medicine 10/28/14 Audio Visual Production Specialist Relationship Specialty Start Date End Date Rober Saba, DO [address] [place] [address] PCP - General Family Medicine 10/28/14 Audio Visual Production Specialist Relationship Specialty Start Date End Date Rober Saba DO [address] [place] [address] PCP - General Family Medicine 10/28/14 Audio Visual Production Specialist Relationship Specialty Start Date End Date Rober Saba DO [address] [place] [address] PCP - General Family Medicine 10/28/14 FOR [...] BE BASED ON THE PRIMARY CLINICAL RECORDS. [employer] [facility]. provides no warranty or guarantee of the accuracy or completeness of information in this document.
--- NOTE | 2025-06-14 09:53 | CT_ITS ---
PROCEDURE: ABDOMEN/PELVIS W IV CONT ONLY 06/14/2025 REASON FOR EXAM: VAGINAL BLEEDING TECHNIQUE: ABDOMEN/PELVIS W IV CONT ONLY Coronal and Sagittal reconstruction series were provided. CONTRAST: Isovue 370 VOLUME: 98 mL One or more dose reduction techniques were used (e.g., Automated exposure control, adjustment of the mA and/or kV according to patient size, use of iterative reconstruction technique. RADIATION DOSE SUMMARY: CTDlvol: 12.47 mGy DLP: 677.93 mGycm COMPARISON: None. FINDINGS: Lung bases: Clear. Liver: Unremarkable. Gallbladder: Cholelithiasis. No biliary dilation. Spleen: Unremarkable. Pancreas: Unremarkable. Adrenals: Unremarkable. Kidneys: Unremarkable. No hydronephrosis or nephrolithiasis. Bladder: Unremarkable. Reproductive Organs: An enhancing crenulated fracture consistent with ovulating follicle in the right ovary. Bowel: No bowel wall obstruction. No bowel wall thickening. Appendix: Normal. Lymph nodes: No lymphadenopathy. Vasculature: No aneurysm. Peritoneum / Retroperitoneum: Trace free fluid which is likely physiological. No free air. Bones: No free air or free fluid. CT/Abdomen/Pelvis W IV Cont ONLY IMPRESSION: Cholelithiasis. Ovulation. Otherwise, no acute findings. Reading Location: [id number]
[2025-06-14] MEDS: 0.9% Normal Saline (1000mL) 1,000 ML 1000 ML IV (10:08)
[2025-06-14 10:09] LABS: Hematocrit 40.6 % (37-47); Hemoglobin 13.8 g/dL (12.0-15.0); Immature Granulocytes Count 0.060 X10^3/uL (0.0-0.0); Mean Corp Hgb Conc 34.0 g/dL (32-36); Mean Corpuscular Volume 83.5 fL (81-99); Mean Platelet Vol. 10.1 fl (6.2-12.0); NRBC Flagged by Analyzer 0 % (0-5); Platelet Count 241 K/mm3 (150-450); RBC Distribution Width CV 13.2 % (11.6-14.6); RBC Distribution Width SD 40.8 fl (35.1-43.9); Red Blood Count 4.86 M/mm3 (4.2-5.4); White Blood Count 11.5 K/mm3 (4.4-11.0)
[2025-06-14 10:14] LABS: Mucous, Urine 0 SEEN /hpf (<or=2+)
[2025-06-14 10:15] LABS: Color, Urine Yellow (Yellow); Glucose, Dipstick Normal (Normal); Ketone-Dipstick Negative (Negative); Leukocyte Esterase-Dipstick Negative /ul (Negative); Nitrite-Dipstick Negative (Negative); Occult Blood-Urine 50 /ul (Negative); Protein-Dipstick 15 mg/dl (Negative); Specific Gravity, Urine 1.015 (1.002-1.030); Urine Bilirubin Dipstick Negative (Negative)
[2025-06-14 10:21] LABS: Squamous Epithelial Cells - UA 0-5 SEEN /hpf (5-10)
[2025-06-14 10:22] LABS: Red Blood Cells-Urine 0-5 SEEN /hpf (0-5)
[2025-06-14 10:55] LABS: Anion Gap 11 (5-15); BUN 11 mg/dL (4-19); BUN/Creat Ratio 12.3 RATIO (10-20); Calcium,Total 9.1 mg/dL (7.6-11.0); Carbon Dioxide 21.8 mmol/L (21.0-32.0); Chloride 105 mmol/L (98-108); Estimated Creatinine Clearance 102.31 ml/min (50-250); Glucose 93 mg/dL (70-99); Potassium 4.2 mmol/L (3.3-5.1)
[2025-06-14 12:00] VITALS: BP 118/75; PULSE 83; RESP 16; TEMP 36.7; O2SAT 100
[2025-06-14 12:32] LABS: Prothrombin Time (Protime)PT. 13.7 SECONDS (11.7-14.9)
[2025-06-14 12:33] LABS: Partial Thromboplast Time 26.0 Seconds (24.1-36.2)
[2025-06-14 13:42] VITALS: BP 119/84; PULSE 58; RESP 16; TEMP 36.9; O2SAT 100
== END 2025-06-14 13:45 | disposition home or self-care (01) ==
PROVIDERS: Emergency Provider Emergency Medicine; PCP Family Medicine; Visit Provider Emergency Medicine
DX: N99.821 Postprocedural hemorrhage of a genitourinary system organ or structure following other procedure (principal); Z90.710 Acquired absence of both cervix and uterus; R11.0 Nausea; R35.0 Frequency of micturition; K21.9 Gastro-esophageal reflux disease without esophagitis; D72.829 Elevated white blood cell count, unspecified; F17.290 Nicotine dependence, other tobacco product, uncomplicated
CPT/HCPCS: 74177; 80048; 81001; 85025; 85610; 85730; 87070; 87205; 96360; 99283; Q9967; A4216

== ENCOUNTER → 2025-09-16 | Outpatient (CLI) | payer BC, SELFPAY ==
[2025-09-16 14:24] LABS: Hematocrit 41.1 % (37-47); Hemoglobin 13.8 g/dL (12.0-15.0); Immature Granulocytes Count 0.080 X10^3/uL (0.0-0.0); Mean Corp Hgb Conc 33.6 g/dL (32-36); Mean Corpuscular Volume 84.4 fL (81-99); Mean Platelet Vol. 10.3 fl (6.2-12.0); NRBC Flagged by Analyzer 0 % (0-5); Platelet Count 288 K/mm3 (150-450); RBC Distribution Width CV 13.5 % (11.6-14.6); RBC Distribution Width SD 41.6 fl (35.1-43.9); Red Blood Count 4.87 M/mm3 (4.2-5.4); White Blood Count 14.0 K/mm3 (4.4-11.0)
[2025-09-16 14:43] LABS: CRP < 3.00 mg/L (0.0-3.0)
== END | disposition home or self-care (01) ==
LOC: MTLAB 09-04 11:29 → MFPLAB 12:19
PROVIDERS: PCP Family Medicine; Referring Provider Orthopaedic Surgery; Visit Provider Orthopaedic Surgery
DX: Z98.890 Other specified postprocedural states (principal)
CPT/HCPCS: 36415; 85025; 85652; 86140